=== PATIENT | female | born 1960 | race Caucasian/White ===

== ENCOUNTER 2018-02-26 18:59 | Emergency (ER) | payer BC, SELFPAY ==
[2018-02-26] MEDS ORDERED: ONDANSETRON 4 MG/2 ML VIAL ONE (22:07)
[2018-02-26] MEDS ORDERED: NA CHLORIDE 0.9% 1,000 ML ONE (22:07)
[2018-02-26] MEDS ORDERED: DIPHENHYDRAMINE 50 MG/ML VIAL ONE (22:07)
[2018-02-26] MEDS ORDERED: HALOPERIDOL LACT 5 MG/ML INJ ONE (22:07)
[2018-02-26 23:07] LABS: Absolute Lymphocytes (CBC) 1.7 K/uL (0.7-4.9); Absolute Monocytes 0.7 K/uL (0.1-1.3); Absolute Neutrophil 15.4 K/uL (1.8-8.0); Basophils % 0.5 % (0-1.3); Eosinophils % 1.5 % (0-4.4); Hematocrit 39.8 % (36.0-45.0); Lymphocytes % 9.3 % (15.3-44.8); MCH 26.1 pg (27.0-35.0); MCV 76.8 fL (80-100); MPV 7.7 fL (7.6-11.3); Monocytes % 3.9 % (3.3-12.3); RBC Red Blood Cell Count 5.18 M/uL (3.86-4.86)
--- NOTE | 2018-02-27 00:24 | ER ---
Nurse's Notes [facility] Name: Albania Alfaro Age: 57 yrs Sex: Female : 1960 Arrival Date: 02/26/2018 Time: 19:03 Bed 24 Private MD: Diagnosis: cerebellar mass with midline shift;Lung mass, undifferentiated. ;vertigo;nausea and vomiting Presentation: 02/26 19:12 Presenting complaint: Patient states: Dizziness with N/V for 24 days. Only able to aj tolerate Thanksgiving dinner. Seen by JERAMIE Mcclure on Saturday and DX with Vertigo, given RX. Transition of care: patient was not received from another setting of care. Onset of symptoms was January 31, 2018. Risk Assessment: Do you want to hurt yourself or someone else? Patient reports no desire to harm self or others. Initial Sepsis Screen: Does the patient meet any 2 criteria? No. Patient's initial sepsis screen is negative. Does the patient have a suspected source of infection? No. Patient's initial sepsis screen is negative. Care prior to arrival: None. 19:12 Method Of Arrival: Wheelchair aj 19:12 Acuity: AILYN 3 aj Triage Assessment: 19:15 General: Appears in no apparent distress. comfortable, Behavior is calm, cooperative, aj appropriate for age. Pain: Denies pain. Neuro: Level of Consciousness is awake, alert, obeys commands, Oriented to person, place, time, situation, Appropriate for age. Neuro: Reports dizziness. Respiratory: Airway is patent Respiratory effort is even, unlabored, Respiratory pattern is regular, symmetrical. GI: Reports nausea, vomiting. Derm: Skin is intact, is healthy with good turgor, Skin is pink, warm \T\ dry. normal. Historical: - Allergies: 19:15 Erythromycin; aj - Home Meds: 19:15 Meclizine Oral [Active]; aj - PMHx: 19:15 vertigo; Diverticulitis; aj - PSHx: 19:15 Cholecystectomy; aj - Immunization history:: Adult Immunizations up to date. - Social history:: Smoking status: Patient/guardian denies using tobacco. - Ebola Screening: : Patient negative for fever greater than or equal to 101.5 degrees Fahrenheit, and additional compatible Ebola Virus Disease symptoms Patient denies exposure to infectious person Patient denies travel to an Ebola-affected area in the 21 days before illness onset No symptoms or risks identified at this time. Screenin:35 Abuse screen: Denies threats or abuse. Denies injuries from another. Nutritional ak1 screening: No deficits noted. Tuberculosis screening: No symptoms or risk factors identified. Fall Risk None identified. Assessment: 21:36 General: Appears in no apparent distress. Behavior is calm, cooperative. Pain: ak1 Complains of pain in headache, abd. 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 Gait is steady, Speech is normal. Cardiovascular: No deficits noted. Respiratory: No deficits noted. 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 : No signs and/or symptoms were reported regarding the genitourinary system. EENT: No signs and/or symptoms were reported regarding the EENT system. Derm: No signs and/or symptoms reported regarding the dermatologic system. Musculoskeletal: No signs and/or symptoms reported regarding the musculoskeletal system. 22:10 Reassessment: Patient appears in no apparent distress at this time. Patient is alert, ak1 oriented x 3, equal unlabored respirations, skin warm/dry/pink. no vomiting noted while pt has been in ER24. 22:48 GI: Abdomen is round non-distended, no vomiting reported as of yet. pt resting with ak1 eyes closed, resp even and unlabored. 23:48 Reassessment: pt and family informed of dx and need for transfer. ak1 Vital Signs: 19:15 BP 115 / 76; Pulse 91; Resp 18; Temp 97.5; Pulse Ox 100% on R/A; Weight 74.84 kg; aj Height 5 ft. 4 in. (162.56 cm); 22:11 BP 127 / 69; Pulse 79; Resp 16; Pulse Ox 99% on R/A; ak1 22:30 BP 133 / 53; Pulse 78; Resp 16; Pulse Ox 98% on R/A; rv 23:30 BP 129 / 76; Pulse 87; Resp 17; Pulse Ox 100% on R/A; rv 19:15 Body Mass Index 28.32 (74.84 kg, 162.56 cm) aj ED Course: 19:03 Patient arrived in ED. rg4 19:14 Triage completed. aj 19:15 Arm band placed on left wrist. Patient placed in waiting room, Patient notified of wait aj time. 20:33 Eun Grande, RN is Primary Nurse. ak1 20:41 Jordan Lagunas MD is Attending Physician. ps1 20:43 Patient has correct armband on for positive identification. Bed in low position. Call ak1 light in reach. Side rails up X 1. Pulse ox on. NIBP on. 21:15 Radiology exam delayed due to IV insertion attempt and/or patient not having vr appropriate IV at this time. 21:16 Radiology exam delayed due to lab results not completed at this time. (BUN/Creatinine). vr 21:36 Missed attempt(s): 20 gauge by Alexx GARCIA via US X2 to right AC and right upper arm. ak1 21:43 Inserted 18 gauge 10 cm midline to right upper brachial vein on first attempt. Line fc with good blood return and flushes well. 22:[address] nj 22:43 CT completed. Patient tolerated procedure well. Patient moved back from CT. nj 22:43 Head angio In Process Unspecified. EDMS 22:43 Neck Angio In Process Unspecified. EDMS 02/27 00:20 CMP Sent. ds4 00:51 No provider procedures requiring assistance completed. Patient transferred, IV remains ak1 in place. Administered Medications: 02/26 22:08 Drug: HALdol 5 mg Route: IVP; Site: right upper arm; ak1 22:57 Follow up: Response: No adverse reaction ak1 22:09 Drug: Benadryl 50 mg Route: IVP; Site: right upper arm; ak1 22:57 Follow up: Response: No adverse reaction ak1 22:09 Drug: Zofran 4 mg Route: IVP; Site: right upper arm; ak1 22:57 Follow up: Response: No adverse reaction ak1 22:10 Drug: NS 0.9% 1000 ml Route: IV; Rate: 1 bolus; Site: right upper arm; ak1 23:54 Follow up: IV Status: Completed infusion ak1 Outcome: 02/27 00:23 ER care complete, transfer ordered by . ps1 00:51 Transferred by ground EMS to [facility], Transfer form completed. ak1 X-rays sent w/ patient. Note: Report given to Ken [address] [place] [address] at [phone] 00:51 Condition: stable 00:51 Instructed on the need for transfer, Demonstrated understanding of instructions. 01:58 Patient left the ED. ak1 Signatures: Dispatcher [employer] Leta Clifford, RN RN Priscilla Atwood, RN RN Cathryn Pineda Donovan ds4 Eun Grande RN RN Anisa Sahni Nathan nj Singer, Phillip, MD MD ps1 Vicente, Ronaldo RN RN rv
--- NOTE | 2018-02-27 00:24 | EDPHYS ---
Physician Documentation [facility] Name: Albania Alfaro Age: 57 yrs Sex: Female : 1960 Arrival Date: 02/26/2018 Time: 19:03 Bed 24 Private MD: ED Physician Jordan Lagunas Historical: - Allergies: 02/26 19:15 Erythromycin; aj - Home Meds: 19:15 Meclizine Oral [Active]; aj - PMHx: 19:15 vertigo; Diverticulitis; aj - PSHx: 19:15 Cholecystectomy; aj - Immunization history:: Adult Immunizations up to date. - Social history:: Smoking status: Patient/guardian denies using tobacco. - Ebola Screening: : Patient negative for fever greater than or equal to 101.5 degrees Fahrenheit, and additional compatible Ebola Virus Disease symptoms Patient denies exposure to infectious person Patient denies travel to an Ebola-affected area in the 21 days before illness onset No symptoms or risks identified at this time. Vital Signs: 19:15 BP 115 / 76; Pulse 91; Resp 18; Temp 97.5; Pulse Ox 100% on R/A; Weight 74.84 kg; aj Height 5 ft. 4 in. (162.56 cm); 22:11 BP 127 / 69; Pulse 79; Resp 16; Pulse Ox 99% on R/A; ak1 22:30 BP 133 / 53; Pulse 78; Resp 16; Pulse Ox 98% on R/A; rv 23:30 BP 129 / 76; Pulse 87; Resp 17; Pulse Ox 100% on R/A; rv 19:15 Body Mass Index 28.32 (74.84 kg, 162.56 cm) aj MDM: 20:50 Patient medically screened. ps1 02/26 22:52 Order name: CBC with Diff; Complete Time: 23:13 ps1 02/26 22:52 Order name: CMP; Complete Time: 00:49 ps1 02/26 21:13 Order name: Head angio EDMS 02/26 21:14 Order name: Neck Angio EDMS 02/27 00:21 Order name: Urine Dipstick--Ancillary (enter results); Complete Time: 00:49 ds4 02/26 22:52 Order name: Urine Dipstick-Ancillary (obtain specimen); Complete Time: 00:15 ps1 Administered Medications: 22:08 Drug: HALdol 5 mg Route: IVP; Site: right upper arm; ak1 22:57 Follow up: Response: No adverse reaction ak1 22:09 Drug: Benadryl 50 mg Route: IVP; Site: right upper arm; ak1 22:57 Follow up: Response: No adverse reaction ak1 22:09 Drug: Zofran 4 mg Route: IVP; Site: right upper arm; ak1 22:57 Follow up: Response: No adverse reaction ak1 22:10 Drug: NS 0.9% 1000 ml Route: IV; Rate: 1 bolus; Site: right upper arm; ak1 23:54 Follow up: IV Status: Completed infusion ak1 Disposition: 02/27/18 00:[address] [facility]. Diagnosis are cerebellar mass with midline shift, Lung mass, undifferentiated. , vertigo, nausea and vomiting. - Reason for transfer: Higher level of care. - Accepting physician is Devonte (Neurosurgery). - Condition is Fair. - Problem is new. - Symptoms are unchanged. Addendum: 03/12/2018 21:56 Addendum: 57 y/o F presenting with nausea, vomiting, vertigo for over a month. She was p s1 seen and evaluated at [facility] for the same and was CT scanned including head, neck, CAP and found to have a right apical lung mass that she was supposed to see Dr. Shannon for for pulmonary follow up and further diagnostic workup. She has not had that appointment yet and she was prescribed meclizine which she states was ineffective in treating her symptoms. ROS: Headache, vertigo, no visual changes, +vomting, nasusea, no urinary complaints. No edema. PHYS: NCAT, PERRL, RRR no MRG, CTAB, Bowel soft NT, Ataxia, and abnormal cerebellar exam. POC: CTA head and neck performed and cerebellar mass present with midline shift. Called [facility] and unavailable 2.2 beds. Transferred to [facility] for NSGY evaluation. . Signatures: Dispatcher [employer] Leta Clifford RN RN aj Krenek, Amber, RN RN ak1 Jordan Lagunas MD MD ps1 Corrections: (The following items were deleted from the chart) 02/27 01:58 00:23 02/27/2018 00:[address] [facility]. Diagnosis is ak1 cerebellar mass with midline shift; Lung mass, undifferentiated. ; vertigo; nausea and vomiting. Reason for transfer: Higher level of care. Accepting physician is Devonte (Neurosurgery). Condition is Fair. Problem is new. Symptoms are unchanged. ps1
[2018-02-27 00:34] LABS: Albumin 2.7 g/dL (3.4-5.0); Bilirubin Total 0.4 mg/dL (0.2-1.0); Potassium 4.1 mmol/L (3.5-5.1); Protein, Total 7.7 g/dL (6.4-8.2)
[2018-02-27 00:40] LABS: Urine Blood 1+ (NEG); Urine Glucose NEGATIVE (NEG); Urine Protein NEGATIVE (NEG); Urine Specific Gravity 1.015 (1.005-1.030)
[2018-02-27 02:59] VITALS: TEMP 97.5
[2018-02-27 03:03] VITALS: BP 129/76; O2SAT 100
--- NOTE | 2018-02-27 09:40 | RAD REPORT ---
EXAM DESCRIPTION: CT - Neck Angio - 02/27/2018 4:34 am CLINICAL HISTORY: Weakness, dizziness, syncope A preliminary report was provided at the time of the study and reviewed prior to final report. TECHNIQUE: During dynamic enhancement using nonionic IV contrast, axial 2 mm thick images of the nec k were obtained. Sagittal and axial reconstruction images were generated and reviewed. Maximum intens ity projection protocol utilized. All CT scans are performed using dose optimization technique as appropriate and may include automated exposure control or mA/KV adjustment according to patient size. COMPARISON: None FINDINGS: Aortic arch is bovine configuration. No great vessel origin stenosis. Right vertebral art crow is dominant. No vertebral artery origins stenosis. Calcifications are present in each carotid bul b without stenosis. No significant atherosclerotic change and no dissection. No aneurysm or vascular malformation. A large 8 x 6 centimeter malignant mass is present in the apex of the right-side chest. This is only partially imaged on this study. There is surrounding atelectatic lung. No chest wall invasion identif iable. IMPRESSION: Large right apex malignant mass with surrounding atelectatic lung or postobstructive ai rspace opacification. The mass is only partially imaged. Minimal carotid bulb atherosclerotic calcifications. No stenosis, dissection or significant vascular finding.
--- NOTE | 2018-02-27 09:45 | RAD REPORT ---
EXAM DESCRIPTION: CT - Head angio - 02/27/2018 4:34 am CLINICAL HISTORY: Weakness, dizziness, vertigo. A preliminary report was provided at the time of the study and reviewed prior to final report. TECHNIQUE: During dynamic enhancement using nonionic IV contrast, axial 1 millimeter thick images of the head were obtained. Sagittal and axial reconstruction images were generated and reviewed. Maximu m intensity projection protocol utilized. All CT scans are performed using dose optimization technique as appropriate and may include automated exposure control or mA/KV adjustment according to patient size. COMPARISON: No remote CT head imaging. FINDINGS: Noncontrast imaging of the brain shows a 2.5 centimeter heterogeneous mass in the midline posterior fossa localizing to the vermis. There is significant surrounding vasogenic edema. Fourth v entricle is partially effaced. No gross ventricular dilatation seen though lateral ventricles are rel atively prominent. 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 No intracranial hemorrhage is present. No cerebral edema. CT angio neck imaging showed right apex mass. This cerebellum finding is probably a metastatic lesion rather than primary brain malignancy. Right vertebral artery is dominant. No acute vertebral or basilar artery finding. From skullbase dete rmination the bilateral internal carotid arteries show no suspicious finding. No dissection or signif icant atherosclerotic change. The anterior, middle and posterior cerebral artery distributions withou t significant finding. Major venous sinuses are patent. IMPRESSION: Approximately 2.5 centimeter mass midline posterior fossa in the region of the vermis. There is significant surrounding vasogenic edema. Early obstructive hydrocephalus of the third and lateral ventricles suspected. No significant vascular finding.
== END 2018-02-27 01:58 | disposition short-term general hospital (02) ==
LOC: ER 18:59
DX: G93.89 Other specified disorders of brain (principal); R91.8 Other nonspecific abnormal finding of lung field; R42 Dizziness and giddiness; Z88.3 Allergy status to other anti-infective agents
CPT/HCPCS: 36415; 70496; 70498; 80053; 81003; 85025; 96361; 96374; 96375; 99285; J1630; J2405; J7030; Q9967

== ENCOUNTER 2018-07-22 18:48 | Emergency (ER) | payer OTHER ==
--- OUTSIDE RECORDS SUMMARY | 2018-07-22 18:51 | XMS REPORT | Clinical Summary ---
:1960 Author Organization [facility] Address [address] [place] [id number] Care Team Providers Name Role Phone Unavailable Primary Care Provider Unavailable Allergies Active Allergy Reactions Severity Noted Date Comments Erythromycin 02/27/2018 Delirium and fever. Medications Medication Sig Dispensed Refills Start Date End Date Status dexamethasone Take 1 tablet (4 10 tablet 0 03/10/2018 03/15/2018 (DECADRON) 4 MG mg total) by tablet mouth 2 (two) times daily with breakfast and dinner for 5 days. dexamethasone Take 1 tablet (4 3 tablet 0 03/16/2018 03/19/2018 (DECADRON) 4 MG mg total) by tablet mouth daily with breakfast for 3 days. dexamethasone Take 1 tablet (2 3 tablet 0 03/19/2018 03/22/2018 (DECADRON) 2 MG mg total) by tablet mouth daily with breakfast for 3 days. 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 of right lung 02/27/2018 Hydrocephalus 02/27/2018 Bandemia 02/27/2018 Encounters Date Type Specialty Care Team Description 03/06/2018 Anesthesia Event Latoya Junior MD 03/06/2018 Surgery Robert Hightower MD CRANIOTOMY/ CRANIECTOMY,EXCISIO N TUMOR 03/04/2018 Surgery Robert Tirado, BRONCHOSCOPY,ENDOBR MD ONCHIAL ULTRASOUND (EBUS) TRANSTRACH/ TRANSBRONCH SAMPLING 03/04/2018 Anesthesia Event Lalit Benites MD 03/02/2018 Travel 02/27/2018 - Hospital Encounter General Internal Giorgio Nguyen Cerebellar mass; 03/10/2018 Medicine MD Jun Hydrocephalus; Nan, [place] Cerebral edema (HCC); Poornima, MD Mass of right lung; Xiang, Ex-smoker; Linda Varner MD 02/27/2018 Travel after 07/21/2017 Family History Medical History Relation Name Comments Coronary artery disease Father Diabetes Father Hypertension Father Breast cancer Mother Relation Name Status Comments Father Mother Social History Tobacco Use Types Packs/Day Years Used Date Former Smoker Quit: 2003 Smokeless Tobacco: Never Used Sex Assigned at Date Recorded Not on file Job Start Date Occupation Industry Not on file Not on file Not on file Travel History Travel Start Travel End No recent travel history available. Last Filed Vital Signs Vital Sign Reading Time Taken Blood Pressure 137/77 03/10/2018 11:30 AM [facility]INING ROOM SUPERVISOR Pulse 69 03/10/2018 11:30 AM DINING ROOM SUPERVISOR Temperature 35.7 C (96.3 F) 03/10/2018 11:30 AM D[employer]ING ROOM SUPERVISOR Respiratory Rate 18 03/10/2018 11:30 AM DINING ROOM SUPERVISOR Oxygen Saturation 96% 03/10/2018 11:30 AM DINING ROOM SUPERVISOR Inhaled Oxygen Concentration - - Weight 74.1 kg (163 lb 5.8 oz) 03/08/2018 5:00 AM DINING ROOM SUPERVISOR Height 162.6 cm (5' 4.02") 02/27/2018 3:20 AM DINING ROOM SUPERVISOR Body Mass Index 28.03 03/08/2018 5:00 AM DINING ROOM SUPERVISOR Plan of Treatment Not on file Implants Implanted Type Area Wheat Inspector Device Shelf Model / Identifier Expiration Serial / Lot Date [facility] Full Strlprep 10ml [id number] - Sna Cement/F N/A: ESPINO:BIOSCI 07/25/2019 [id number] / Implanted: Qty: 1 on 03/06/2018 by Robert Hightower MD iller/Ad Head NA / hesive [id number] [employer] Duras[employer] Spine 5ml [id number] - [id number] Cement/F N/A: [employer] LIF[employer]CI 07/30/2019 [id number] / Implanted: Qty: 1 on 03/06/2018 by Robert Hightower MD iller/Ad Head / hesive [id number] Plt Str Lp-Neuro 2h 12mm Ti Ns [id number] - Sna Fracture N/A: SYNTHES:SYNTHES 421.502 / Implanted: Qty: 2 on 03/06/2018 by Robert Hightower MD /Fixatio Head [facility] NA / n NA Plt Str Lp-Neuro 4h 12mm Ti Ns 421.504 - Sna Fracture N/A: SYNTHES:SYNTHES 421.504 / Implanted: Qty: 1 on 03/06/2018 by Robert Hightower MD /Fixatio Head [place] NA / n NA Scr Sd Mtrxneu 4mm Ti Ns .104.01 - Sna Fracture N/A: SYNTHES:SYNTHES 104.01 / Implanted: Qty: 8 on 03/06/2018 by Robert Hightower MD /Fixatio Head [facility] NA / n NA Graft Suturable Bp 4x5cm [id number] - [id number] Graft/Pa N/A: [employer] LIFESCI 03/31/2022 [id number] / Implanted: Qty: 1 on 03/06/2018 by Robert Hightower MD [facility] Head [id number] / [id number] Procedures Procedure Name Priority Date/Time Associated Comments Diagnosis INTRAOPERATIVE PATH 03/21/2018 3:20 REPORT - SCAN PM DINING ROOM SUPERVISOR RHYTHM STRIP - SCAN 03/17/2018 12:30 PM DINING ROOM SUPERVISOR POCT-GLUCOSE METER Routine 03/10/2018 11:26 Results for this AM DINING ROOM SUPERVISOR procedure are in the results section. POCT-GLUCOSE METER Routine 03/10/2018 7:12 Results for this AM DINING ROOM SUPERVISOR procedure are in the results section. CBC W/PLT COUNT & AUTO Routine 03/10/2018 4:52 Results for this DIFFERENTIAL AM DINING ROOM SUPERVISOR procedure are in the results section. CBC W/PLT COUNT & AUTO Routine 03/10/2018 4:52 Results for this DIFFERENTIAL AM D[employer]ING ROOM SUPERVISOR procedure are in the results section. BASIC METABOLIC PANEL Routine 03/10/2018 4:52 Results for this (7) AM DINING ROOM SUPERVISOR procedure are in the results section. POCT-GLUCOSE METER Routine 03/09/2018 9:19 Results for this PM D[employer]ING ROOM SUPERVISOR procedure are in the results section. POCT-GLUCOSE METER Routine 03/09/2018 6:16 Results for this PM [facility]ING ROOM SUPERVISOR procedure are in the results section. POCT-GLUCOSE METER Routine 03/09/2018 11:50 Results for this AM DINING ROOM SUPERVISOR procedure are in the results section. POCT-GLUCOSE METER Routine 03/09/2018 8:18 Results for this AM D[employer]ING ROOM SUPERVISOR procedure are in the results section. CBC W/PLT COUNT & AUTO Routine 03/09/2018 5:44 Results for this DIFFERENTIAL AM D[employer]ING ROOM SUPERVISOR procedure are in the results section. CBC W/PLT COUNT & AUTO Routine 03/09/2018 5:44 Results for this DIFFERENTIAL AM DINING ROOM SUPERVISOR procedure are in the results section. BASIC METABOLIC PANEL Routine 03/09/2018 5:44 Results for this (7) AM D[employer]ING ROOM SUPERVISOR procedure are in the results section. POCT-GLUCOSE METER Routine 03/08/2018 9:14 Results for this PM [employer]ING ROOM SUPERVISOR procedure are in the results section. POCT-GLUCOSE METER Routine 03/08/2018 6:00 Results for this PM [facility]ING ROOM SUPERVISOR procedure are in the results section. POCT-GLUCOSE METER Routine 03/08/2018 1:31 Results for this PM [facility]ING ROOM SUPERVISOR procedure are in the results section. MR BRAIN WITHOUT & STAT 03/08/2018 11:47 Results for this WITH IV CONTRAST AM DINING ROOM SUPERVISOR procedure are in the results section. (CELLAVISION MANUAL Routine 03/08/2018 3:33 Results for this DIFF) AM DINING ROOM SUPERVISOR procedure are in the results section. CBC W/PLT COUNT & AUTO Routine 03/08/2018 3:33 Results for this DIFFERENTIAL AM DINING ROOM SUPERVISOR procedure are in the results section. CBC W/PLT COUNT & AUTO Routine 03/08/2018 3:33 Results for this DIFFERENTIAL AM D[employer]ING ROOM SUPERVISOR procedure are in the results section. BASIC METABOLIC PANEL Routine 03/08/2018 3:33 Results for this (7) AM DINING ROOM SUPERVISOR procedure are in the results section. POCT-GLUCOSE METER Routine 03/07/2018 11:20 Results for this PM DINING ROOM SUPERVISOR procedure are in the results section. POCT-GLUCOSE METER Routine 03/07/2018 10:00 Results for this PM [facility]ING ROOM SUPERVISOR procedure are in the results section. POCT-GLUCOSE METER Routine 03/07/2018 6:24 Results for this PM [facility]ING ROOM SUPERVISOR procedure are in the results section. POCT-GLUCOSE METER Routine 03/07/2018 12:17 Results for this PM [facility]ING ROOM SUPERVISOR procedure are in the results section. POCT-GLUCOSE METER Routine 03/07/2018 8:34 Results for this AM D[employer]ING ROOM SUPERVISOR procedure are in the results section. (CELLAVISION MANUAL Routine 03/07/2018 3:59 Results for this DIFF) AM DINING ROOM SUPERVISOR procedure are in the results section. CBC W/PLT COUNT & AUTO Routine 03/07/2018 3:59 Results for this DIFFERENTIAL AM D[employer]ING ROOM SUPERVISOR procedure are in the results section. PHOSPHORUS Routine 03/07/2018 3:59 Results for this AM DINING ROOM SUPERVISOR procedure are in the results section. MAGNESIUM Routine 03/07/2018 3:59 Results for this AM D[employer]ING ROOM SUPERVISOR procedure are in the results section. CBC W/PLT COUNT & AUTO Routine 03/07/2018 3:59 Results for this DIFFERENTIAL AM D[employer]ING ROOM SUPERVISOR procedure are in the results section. BASIC METABOLIC PANEL Routine 03/07/2018 3:59 Results for this (7) AM D[employer]ING ROOM SUPERVISOR procedure are in the results section. POCT-GLUCOSE METER Routine 03/06/2018 10:25 Results for this PM [employer]ING ROOM SUPERVISOR procedure are in the results section. TISSUE EXAM AP Routine 03/06/2018 6:28 Results for this PM [employer]ING ROOM SUPERVISOR procedure are in the results section. POCT-GLUCOSE METER Routine 03/06/2018 12:27 Results for this PM [facility]ING ROOM SUPERVISOR procedure are in the results section. 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 POCT-GLUCOSE METER Routine 03/06/2018 5:15 AM Results for this D[employer]ING ROOM SUPERVISOR procedure are in the results section. CBC W/PLT COUNT & AUTO Routine 03/06/2018 4:37 AM Results for this DIFFERENTIAL D[employer]ING ROOM SUPERVISOR procedure are in the results section. CBC W/PLT COUNT & AUTO Routine 03/06/2018 4:37 AM Results for this DIFFERENTIAL D[employer]ING ROOM SUPERVISOR procedure are in the results section. BASIC METABOLIC PANEL (7) Routine 03/06/2018 4:37 AM Results for this [employer]ING ROOM SUPERVISOR procedure are in the results section. PT/APTT Routine 03/06/2018 4:37 AM Results for this D[employer]ING ROOM SUPERVISOR procedure are in the results section. POCT-GLUCOSE METER Routine 03/05/2018 10:05 PM Results for this D[employer]ING ROOM SUPERVISOR procedure are in the results section. TRANSFUSION SERVICE REPORT 03/05/2018 6:01 PM - SCAN D[employer]ING ROOM SUPERVISOR POCT-GLUCOSE METER Routine 03/05/2018 4:42 PM Results for this D[employer]ING ROOM SUPERVISOR procedure are in the results section. POCT-GLUCOSE METER Routine 03/05/2018 12:01 PM Results for this D[employer]ING ROOM SUPERVISOR procedure are in the results section. POCT-GLUCOSE METER Routine 03/05/2018 7:18 AM Results for this D[employer]ING ROOM SUPERVISOR procedure are in the results section. CBC W/PLT COUNT & AUTO Routine 03/05/2018 4:45 AM Results for this DIFFERENTIAL D[employer]ING ROOM SUPERVISOR procedure are in the results section. CBC W/PLT COUNT & AUTO Routine 03/05/2018 4:45 AM Results for this DIFFERENTIAL D[employer]ING ROOM SUPERVISOR procedure are in the results section. BASIC METABOLIC PANEL (7) Routine 03/05/2018 4:45 AM Results for this [employer]ING ROOM SUPERVISOR procedure are in the results section. POCT-GLUCOSE METER Routine 03/04/2018 8:24 PM Results for this D[employer]ING ROOM SUPERVISOR procedure are in the results section. POCT-GLUCOSE METER Routine 03/04/2018 5:38 PM Results for this D[employer]ING ROOM SUPERVISOR procedure are in the results section. POCT-GLUCOSE METER Routine 03/04/2018 12:03 PM Results for this D[employer]ING ROOM SUPERVISOR procedure are in the results section. REPORT OF PROCEDURE - 03/04/2018 11:06 AM ENDOSCOPY URL DINING ROOM SUPERVISOR EBUS FNA REQUEST Routine 03/04/2018 10:23 AM Results for this [employer]ING ROOM SUPERVISOR procedure are in the results section. FINE NEEDLE ASPIRATE BY AP Routine 03/04/2018 10:23 AM Results for this EBUS D[employer]ING ROOM SUPERVISOR procedure are in the results section. EBUS FNA REQUEST Routine 03/04/2018 10:08 AM Results for this D[employer]ING ROOM SUPERVISOR procedure are in the results section. FINE NEEDLE ASPIRATE BY AP Routine 03/04/2018 10:08 AM Results for this EBUS D[employer]ING ROOM SUPERVISOR procedure are in the results section. EBUS FNA REQUEST Routine 03/04/2018 10:02 AM Results for this D[employer]ING ROOM SUPERVISOR procedure are in the results section. FINE NEEDLE ASPIRATE BY AP Routine 03/04/2018 10:02 AM Results for this EBUS D[employer]ING ROOM SUPERVISOR procedure are in the results section. EBUS FNA REQUEST Routine 03/04/2018 10:01 AM Results for this D[employer]ING ROOM SUPERVISOR procedure are in the results section. EBUS FNA REQUEST Routine 03/04/2018 10:01 AM Results for this D[employer]ING ROOM SUPERVISOR procedure are in the results section. FINE NEEDLE ASPIRATE BY AP Routine 03/04/2018 10:01 AM Results for this EBUS D[employer]ING ROOM SUPERVISOR procedure are in the results section. FINE NEEDLE ASPIRATE BY AP Routine 03/04/2018 10:01 AM Results for this EBUS D[employer]ING ROOM SUPERVISOR procedure are in the results section. TISSUE EXAM AP Routine 03/04/2018 9:17 AM Results for this D[employer]ING ROOM SUPERVISOR procedure are in the results section. BRONCHOSCOPY,ASPIRATION 03/04/2018 9:02 AM Lung mass TRACHEOBRONCHIAL TREE DINING ROOM SUPERVISOR BRONCHOSCOPY,CRYOTHERAPY 03/04/2018 9:02 AM Lung mass TREATMENT FOR STENOSIS D[employer]ING ROOM SUPERVISOR BRONCHOSCOPY,ENDOBRONCHIAL 03/04/2018 9:02 AM Lung mass ULTRASOUND (EBUS) DINING ROOM SUPERVISOR TRANSTRACH/ TRANSBRONCH SAMPLING POCT-GLUCOSE METER Routine 03/04/2018 8:05 AM Results for this [employer] ROOM SUPERVISOR procedure are in the results section. CBC W/PLT COUNT & AUTO Routine 03/04/2018 5:45 AM Results for this DIFFERENTIAL D[employer]ING ROOM SUPERVISOR procedure are in the results section. TYPE AND SCREEN, AUTOMATED Routine 03/04/2018 5:45 AM Results for this [employer] ROOM SUPERVISOR procedure are in the results section. APTT STAT 03/04/2018 5:45 AM Results for this [employer]ING ROOM SUPERVISOR procedure are in the results section. PROTHROMBIN TIME/INR STAT 03/04/2018 5:45 AM Results for this D[employer]ING ROOM SUPERVISOR procedure are in the results section. CBC W/PLT COUNT & AUTO Routine 03/04/2018 5:45 AM Results for this DIFFERENTIAL D[employer]ING ROOM SUPERVISOR procedure are in the results section. BASIC METABOLIC PANEL (7) Routine 03/04/2018 5:45 AM Results for this D[employer]ING ROOM SUPERVISOR procedure are in the results section. POCT-GLUCOSE METER Routine 03/03/2018 9:40 PM Results for this D[employer]ING ROOM SUPERVISOR procedure are in the results section. NM BONE SCAN WHOLE BODY Routine 03/03/2018 2:27 PM Results for this D[employer]ING ROOM SUPERVISOR procedure are in the results section. POCT-GLUCOSE METER Routine 03/03/2018 11:29 AM Results for this D[employer]ING ROOM SUPERVISOR procedure are in the results section. POCT-GLUCOSE METER Routine 03/03/2018 8:25 AM Results for this D[employer]ING ROOM SUPERVISOR procedure are in the results section. CBC W/PLT COUNT & AUTO Routine 03/03/2018 4:53 AM Results for this DIFFERENTIAL D[employer]ING ROOM SUPERVISOR procedure are in the results section. CBC W/PLT COUNT & AUTO Routine 03/03/2018 4:53 AM Results for this DIFFERENTIAL D[employer]ING ROOM SUPERVISOR procedure are in the results section. POCT-GLUCOSE METER Routine 03/02/2018 9:25 PM Results for this D[employer]ING ROOM SUPERVISOR procedure are in the results section. POCT-GLUCOSE METER Routine 03/02/2018 1:06 PM Results for this D[employer]ING ROOM SUPERVISOR procedure are in the results section. POCT-GLUCOSE METER Routine 03/02/2018 8:06 AM Results for this D[employer]ING ROOM SUPERVISOR procedure are in the results section. URINALYSIS W/ REFLEX URINE Routine 03/02/2018 6:00 AM Results for this CULTURE D[employer]ING ROOM SUPERVISOR procedure are in the results section. CBC W/PLT COUNT & AUTO Routine 03/02/2018 4:54 AM Results for this DIFFERENTIAL D[employer]ING ROOM SUPERVISOR procedure are in the results section. CBC W/PLT COUNT & AUTO Routine 03/02/2018 4:54 AM Results for this DIFFERENTIAL D[employer]ING ROOM SUPERVISOR procedure are in the results section. BASIC METABOLIC PANEL (7) Routine 03/02/2018 4:54 AM Results for this D[employer]ING ROOM SUPERVISOR procedure are in the results section. POCT-GLUCOSE METER Routine 03/01/2018 9:02 PM Results for this D[employer]ING ROOM SUPERVISOR procedure are in the results section. POCT-GLUCOSE METER Routine 03/01/2018 5:46 PM Results for this D[employer]ING ROOM SUPERVISOR procedure are in the results section. POCT-GLUCOSE METER Routine 03/01/2018 12:17 PM Results for this D[employer]ING ROOM SUPERVISOR procedure are in the results section. CBC W/PLT COUNT & AUTO Routine 03/01/2018 6:14 AM Results for this DIFFERENTIAL D[employer]ING ROOM SUPERVISOR procedure are in the results section. CBC W/PLT COUNT & AUTO Routine 03/01/2018 6:14 AM Results for this DIFFERENTIAL D[employer]ING ROOM SUPERVISOR procedure are in the results section. BASIC METABOLIC PANEL (7) Routine 03/01/2018 6:14 AM Results for this D[employer]ING ROOM SUPERVISOR procedure are in the results section. POCT-GLUCOSE METER Routine 03/01/2018 6:07 AM Results for this D[employer]ING ROOM SUPERVISOR procedure are in the results section. POCT-GLUCOSE METER Routine 02/28/2018 6:18 PM Results for this D[employer]ING ROOM SUPERVISOR procedure are in the results section. CT ABDOMEN/PELVIS WITH IV Routine 02/28/2018 11:32 AM Results for this CONTRAST D[employer]ING ROOM SUPERVISOR procedure are in the results section. CT CHEST WITH IV CONTRAST Routine 02/28/2018 11:32 AM Results for this D[employer]ING ROOM SUPERVISOR procedure are in the results section. POCT-GLUCOSE METER Routine 02/28/2018 8:10 AM Results for this D[employer]ING ROOM SUPERVISOR procedure are in the results section. POCT-GLUCOSE METER Routine 02/28/2018 5:54 AM Results for this D[employer]ING ROOM SUPERVISOR procedure are in the results section. MR BRAIN WITHOUT & WITH IV LORETTA 02/28/2018 5:03 AM Results for this CONTRAST D[employer]ING ROOM SUPERVISOR procedure are in the results section. CBC W/PLT COUNT & AUTO Routine 02/28/2018 3:23 AM Results for this DIFFERENTIAL D[employer]ING ROOM SUPERVISOR procedure are in the results section. CBC W/PLT COUNT & AUTO Routine 02/28/2018 3:23 AM Results for this DIFFERENTIAL D[employer]ING ROOM SUPERVISOR procedure are in the results section. BASIC METABOLIC PANEL (7) Routine 02/28/2018 3:23 AM Results for this D[employer]ING ROOM SUPERVISOR procedure are in the results section. POCT-GLUCOSE METER Routine 02/28/2018 12:07 AM Results for this D[employer]ING ROOM SUPERVISOR procedure are in the results section. BLOOD CULTURE Routine 02/27/2018 6:57 PM Results for this D[employer]ING ROOM SUPERVISOR procedure are in the results section. POCT-GLUCOSE METER Routine 02/27/2018 6:30 PM Results for this D[employer]ING ROOM SUPERVISOR procedure are in the results section. POCT-GLUCOSE METER Routine 02/27/2018 11:50 AM Results for this D[employer]ING ROOM SUPERVISOR procedure are in the results section. ECG 12-LEAD Routine 02/27/2018 8:17 AM Results for this D[employer]ING ROOM SUPERVISOR procedure are in the results section. POCT-GLUCOSE METER Routine 02/27/2018 5:29 AM Results for this D[employer]ING ROOM SUPERVISOR procedure are in the results section. C-REACTIVE PROTEIN Routine 02/27/2018 5:27 AM Results for this DINING ROOM SUPERVISOR procedure are in the results section. LACTATE DEHYDROGENASE Routine 02/27/2018 5:27 AM Results for this (LDH) D[employer]ING ROOM SUPERVISOR procedure are in the results section. LACTIC ACID, ARTERIAL Routine 02/27/2018 5:27 AM Results for this D[employer]ING ROOM SUPERVISOR procedure are in the results section. PROCALCITONIN Routine 02/27/2018 5:27 AM Results for this D[employer]ING ROOM SUPERVISOR procedure are in the results section. BLOOD CULTURE Routine 02/27/2018 5:27 AM Results for this DINING ROOM SUPERVISOR procedure are in the results section. PHOSPHORUS Routine 02/27/2018 5:04 AM Results for this DINING ROOM SUPERVISOR procedure are in the results section. MAGNESIUM Routine 02/27/2018 5:04 AM Results for this DINING ROOM SUPERVISOR procedure are in the results section. PT/APTT Routine 02/27/2018 5:04 AM Results for this DINING ROOM SUPERVISOR procedure are in the results section. PROTHROMBIN TIME/INR Routine 02/27/2018 5:04 AM Results for this DINING ROOM SUPERVISOR procedure are in the results section. BASIC METABOLIC PANEL (7) Routine 02/27/2018 5:04 AM Results for this DINING ROOM SUPERVISOR procedure are in the results section. TROPONIN I Routine 02/27/2018 5:04 AM Results for this DINING ROOM SUPERVISOR procedure are in the results section. CBC W/PLT COUNT & AUTO Routine 02/27/2018 5:00 AM Results for this DIFFERENTIAL D[employer]ING ROOM SUPERVISOR procedure are in the results section. CBC W/PLT COUNT & AUTO Routine 02/27/2018 5:00 AM Results for this DIFFERENTIAL DINING ROOM SUPERVISOR procedure are in the results section. after 07/21/2017 Results INTRAOPERATIVE PATH REPORT - SCAN (03/21/2018 3:20 PM DINING ROOM SUPERVISOR) Narrative Performed At RHYTHM STRIP - SCAN (03/17/2018 12:30 PM DINING ROOM SUPERVISOR) Narrative Performed At POC-Glucose meter (03/10/2018 11:26 AM DINING ROOM SUPERVISOR)Only the most recent of43 resultswithin the time period is included. POC-Glucose Meter 114 (H)Comment: TESTED AT 70 - 110 mg/dL [facility] [address] [facility] [id number] Specimen Blood Performing Organization Address City/State/Zipcode Phone Number [address] [address] [phone] CENTER CBC with platelet count + automated diff (03/10/2018 4:52 AM DINING ROOM SUPERVISOR)Only the most recent of12 resultswithin the time period is included. WBC 20.9 (H) 3.5 - 10.5 K/L [facility] RBC 5.18 3.93 - 5.22 M/L [facility] Hemoglobin 12.9 11.2 - 15.7 GM/DL [facility] Hematocrit 41.8 34.1 - 44.9 % [facility] MCV 80.7 79.4 - 94.[address] [facility] MCH 24.9 (L) 25.6 - 32.[address] [facility] MCHC 30.9 (L) 32.2 - 35.5 GM/DL [facility] RDW 15.7 (H) 11.7 - 14.4 % [facility] Platelets 485 (H) 150 - 450 K/CU MM [facility] MPV 9.1 (L) 9.4 - 12.[address] [facility] nRBC 0 0 - 0 /[address] [facility] % Neutros 82 % [facility] % Lymphs 10 % [facility] % Monos 6 % [facility] % Eos 1 % [facility] % Baso 0 % [facility] # Neutros 17.13 (H) 1.56 - 6.13 K/L [facility] # Lymphs 2.17 1.18 - 3.74 K/L [facility] # Monos 1.19 (H) 0.24 - 0.36 K/L [facility] # Eos 0.17 0.04 - 0.36 K/L [facility] # Baso 0.03 0.01 - 0.08 K/L [facility] Immature 1 0 - 1 % [facility] Specimen Blood Performing Organization Address City/State/Zipcode Phone Number [facility] [address] [place] [address] [phone] CENTER Basic metabolic panel (03/10/2018 4:52 AM DINING ROOM SUPERVISOR)Only the most recent of11 resultswithin the time period is included. Sodium 134 (L) 136 - 145 meq/L [facility] Potassium 4.4 3.5 - 5.1 meq/L [facility] Chloride 103 98 - 107 meq/L [facility] CO2 23 22 - 29 meq/L [facility] BUN 19 7 - 21 mg/dL [facility] Creatinine 0.60 0.57 - 1.25 mg/dL [facility] Glucose 103 70 - 105 mg/dL [facility] Calcium 9.7 8.4 - 10.2 mg/dL [facility] EGFR Comment: INSUFFICIENT CLINICAL mL/min/1.[address] [facility] DATA TO CALCULATE ESTIMATED MEDICAL CENTER GFR. Specimen Blood Performing Organization Address City/State/Zipcode Phone Number [facility] [address] [place] [address] CENTER MR brain without & with IV contrast (03/08/2018 11:47 AM DINING ROOM SUPERVISOR)Only the most recent of2 resultswithin the time period is included. Specimen Narrative Performed At [facility] MRI Brain with and without contrast Clinical History: Status post tumor resection Technique: MRI of the brain utilizing axial T1, T2, FLAIR, GRE, DWI, sagittal T1; and postgadolinium axial, sagittal, and coronal T1-weighted images. 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 There is air and fluid in the surgical cavity with adjacent signal dephasing. Allowing for this, there is no definitive evidence for residual masslike enhancement. There is substantially decreased vasogenic edema in the bilateral cerebellum. There is new nonspecific leptomeningeal enhancement in the inferior cerebellar folia. There is also new also enhancing dural thickening along the dorsal clivus and upper cervical canal, likely related to a small reactive subdural collection. There is no abnormal enhancement elsewhere in the brain. A 4 mm nonenhancing focus of FLAIR signal hyperintensity in the anterior right temporal lobe is unchanged. There is no evidence for acute infarct. Mild enlargement of the temporal horns is unchanged. There is no midline shift. IMPRESSION: Since 02/28/2018, status post resection of the midline cerebellar mass without evidence for residual neoplasm. Cerebellar leptomeningeal enhancement and a small subdural collection along the dorsal clivus and upper cervical canal are both likely reactive in nature. Signed: Daysi Woodward MD Report Verified Date/Time:03/08/2018 12:29:16 Reading Location: [address] Neuro Reading Room Procedure Note Interface, External Ris In - 03/08/2018 12:31 PM DINING ROOM SUPERVISOR FINAL REPORT MRI Brain with and without contrast Clinical History: Status post tumor resection Technique: MRI of the brain utilizing axial T1, T2, FLAIR, GRE, DWI, sagittal T1; and postgadolinium axial, sagittal, and coronal T1-weighted images. 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 There is air and fluid in the surgical cavity with adjacent signal dephasing. Allowing for this, there is no definitive evidence for residual masslike enhancement. There is substantially decreased vasogenic edema in the bilateral cerebellum. There is new nonspecific leptomeningeal enhancement in the inferior cerebellar folia. There is also new also enhancing dural thickening along the dorsal clivus and upper cervical canal, likely related to a small reactive subdural collection. There is no abnormal enhancement elsewhere in the brain. A 4 mm nonenhancing focus of FLAIR signal hyperintensity in the anterior right temporal lobe is unchanged. There is no evidence for acute infarct. Mild enlargement of the temporal horns is unchanged. There is no midline shift. IMPRESSION: Since 02/28/2018, status post resection of the midline cerebellar mass without evidence for residual neoplasm. Cerebellar leptomeningeal enhancement and a small subdural collection along the dorsal clivus and upper cervical canal are both likely reactive in nature. Signed: Daysi Woodward MD Report Verified Date/Time: 03/08/2018 12:29:16 Reading Location: [address] Neuro Reading Room Performing Organization Address City/State/Zipcode Phone Number GE RIS Manual Differential (03/08/2018 3:33 AM DINING ROOM SUPERVISOR)Only the most recent of2 resultswithin the time period is included. % Neutros 91 % [facility] % Lymphs 6 % [facility] % Monos 1 % [facility] % Bands 2 0 - 10 % [facility] # Neutros 23.11 (H) 1.56 - 6.13 K/ul [facility] # Lymphs 1.52 1.18 - 3.74 K/ul [facility] # Monos 0.25 0.24 - 0.36 K/uL [facility] # Bands 0.51 0.00 - 0.80 K/uL [facility] Total Counted 100 [facility] WBC Morphology Normal [facility] Platelet Morphology Normal [facility] Polychromasia 3+ many [facility] Anisocytosis 2+ moderate [facility] Microcytes 1+ few [facility] Artifact Present [facility] Platelet Conc Increased [facility] Specimen Blood Narrative Performed At Received comment: [facility] User comments: Slide comments: Performing Organization Address City/[facility] Phone Number [address] [address] CENTER Phosphorus (03/07/2018 3:59 AM DINING ROOM SUPERVISOR)Only the most recent of2 resultswithin the time period is included. Phosphorus 3.4 2.3 - 4.7 mg/dL [facility] Specimen Blood Performing Organization Address City/[facility] Phone Number [address] [address] CENTER Magnesium (03/07/2018 3:59 AM DINING ROOM SUPERVISOR)Only the most recent of2 resultswithin the time period is included. Magnesium 1.9 1.6 - 2.6 mg/dL [facility] Specimen Blood Performing Organization Address City/[facility] Phone Number [address] [address] [phone] CENTER Tissue Exam (03/06/2018 6:28 PM DINING ROOM SUPERVISOR)Only the most recent of2 resultswithin the time period is included. Case Report Surgical Pathology Report Case: [id number] [facility] Authorizing Provider:Robert Hightower MDCollected: 03/06/2018 1828 [facility] Ordering Location[place] [facility] Received: 03/07/2018 0900 SERVICES Pathologist: Blu Bowers MD Specimen:Tumor ADDENDUM The following results were reported by [employer]. Please see attached reports. 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 The tumor is strongly and diffusely positive for TTF-1 and Napsin-A, both lung markers and consistent with derivation from a lung primary. Immunoperoxidase stains for cytokeratin 7 are also strongly positive and there is predominant immunpositivity of tumor for cytokeratin 20. Focal positivity of tumor for p40 and cytokeratin 5/6 are also present, confirming focal squamous differentiation in a minority of tumor cells. Tumor is negative for p63. CPT Code(s) 69216; 19224; [address] [facility] CLINICAL HISTORY Cancer of cerebellum [facility] SPECIMEN SOURCE Tumor of cranium [facility] GROSS DESCRIPTION The specimen is received in a [facility] formalin-filled container [facility] labeled with the patient's information and labeled "cranium tumor" and consists of multiple fragments of santiago hemorrhagic soft tissue measuring 3 x 2.5 x 1 cm in aggregate. The specimen is entirely submitted in A1 and A2. CG/ew MICROSCOPIC DESCRIPTION Performed [facility] SPECIAL STUDIES The interpretation of this case included the use of immunohistochemistry or special stains. [facility] Immunohistochemistry technical testing was performed at [facility], Pathology Laboratory where it was developed and its performance characteristics were determined. It has not be en cleared or approved by the U.S. Food and Drug Administration. The FDA has determined that such clearance or approval is not necessary. The test is used for clinical purposes. It should not be regarde d as investigational or for research. This laboratory is certified under the Clinical Laboratory Improvement Amendments of 1988 (CLIA-88) as qualified to perform high complexity clinical laboratory testing. The immunohistochemistry test was developed and its performance characteristics determined by [facility], Pathology Laboratory. It has not been cleared or approved by the U.S. Food and Drug Administration. The FDA has determined that such clearance or approval is not necessary. The test is used for clinical purposes. It should not be regarded as investigational or for research. This laboratory is certified under the Clinical Laboratory Improvement Amendments of 1988 (CLIA-88) as qualified to perform high complexity clinical laboratory testing. Specimen Tissue - Tumor Narrative Performed At Performing Organization Address City/[facility]/Zipcode Phone Number [address] [address] [place] PT/aPTT (03/06/2018 4:37 AM DINING ROOM SUPERVISOR)Only the most recent of2 resultswithin the time period is included. Protime 13.1 11.7 - 14.[address] [facility] INR 1.0 <=[address].9 [facility] PTT 24.2 22.5 - 36.[address] [facility] Specimen Blood Narrative Performed At RECOMMENDED COUMADIN/WARFARIN INR THERAPY [facility] RANGES STANDARD DOSE: 2.0 - 3.0 Includes: PROPHYLAXIS for venous thrombosis, systemic embolization; TREATMENT for venous thrombosis and/or pulmonary embolus. HIGH RISK: Target INR is 2.5-3.5 for patients with mechanical heart valves. Performing Organization Address City/[facility] Hospitalcode Phone Number [address] [address] [phone] [place] TRANSFUSION SERVICE REPORT - SCAN (03/05/2018 6:01 PM DINING ROOM SUPERVISOR) Narrative Performed At REPORT OF PROCEDURE - ENDOSCOPY URL (03/04/2018 11:06 AM DINING ROOM SUPERVISOR) Narrative Performed At EBUS FNA REQUEST (03/04/2018 10:23 AM DINING ROOM SUPERVISOR)Only the most recent of5 resultswithin the time period is included. Cytology See Separate Report [facility] Specimen EBUS Fine Needle Aspirate - Lymph Node, Interlobar, Right, Station 11R Performing Organization Address City/State/Zipcode Phone Number [facility] [address] [place] [address] CENTER Fine Needle Aspiration by EBUS (03/04/2018 10:23 AM DINING ROOM SUPERVISOR)Only the most recent of5 resultswithin the time period is included. Case Report Medical Cytology Report Case: [id number] [facility] Authorizing Provider:Robert Tirado MDCollected: 03/04/2018 1023 [facility] Ordering Location: [address] Received: 03/04/2018 1244 Service Pathologist: Ben Vila MD Specimen:Lymph Node, Interlobar, Right, Station 11R DIAGNOSIS LYMPH NODE, INTERLOBAR RIGHT, STATION 11R EBUS FNA BY CLINICIAN ( CYTOSPINS OF ASPIRATE): [facility] - NEGATIVE FOR MALIGNANCY [facility] - LYMPHOCYTES PRESENT Signing Pathologist Direct Phone Line: [phone] COMMENT [facility] Please also see surgical pathology report [id number] and cytopathology reports [id number], [id number], [id number] and [id number]. [facility] CPT Code(s) [address] [facility] CLINICAL DATA Lung mass [facility] SPECIMEN SOURCE LYMPH NODE, INTERLOBAR RIGHT, [facility] STATION 11R EBUS FNA [facility] GROSS DESCRIPTION 40 mls in cytorich red; 2 cytospins [facility] Collected: [id number] [facility] Received: [id number] SPECIAL STUDIES The interpretation of this case included the use of immunohistochemistry or special stains. [facility] Immunohistochemistry technical testing was performed at [facility], Pathology Laboratory where it was developed and its performance characteristics were determined. It has not be en cleared or approved by the U.S. Food and Drug Administration. The FDA has determined that such clearance or approval is not necessary. The test is used for clinical purposes. It should not be regarde d as investigational or for research. This laboratory is certified under the Clinical Laboratory Improvement Amendments of 1988 (CLIA-88) as qualified to perform high complexity clinical laboratory testing. Gross assessment was [facility] performed at [place], Department [facility] Pathology, [address] [place] [id number], Technical component was [facility] performed at [place], [facility] Pathology, [address] [place] [address], Professional component [facility] was performed at [place], [facility] Pathology, [address] [place] [address], Specimen EBUS Fine Needle Aspirate - Lymph Node, Interlobar, Right, Station 11R Narrative Performed At Performing Organization Address City/[facility] Phone Number [address] [address] CENTER Type and screen, automated (03/04/2018 5:45 AM DINING ROOM SUPERVISOR) ABO/RH AUTOMATED (BEAKER) A POSITIVE [facility] Ab Scrn NEGATIVE [facility] Specimen Blood Performing Organization Address [facility] Hospitalcode Phone Number [address] [address] aPTT (03/04/2018 5:45 AM DINING ROOM SUPERVISOR) PTT 25.2 22.5 - 36.[address] [facility] Specimen Blood Performing Organization Address [facility]/Zipcode Phone Number [address] [address] CENTER Prothrombin time/INR (03/04/2018 5:45 AM DINING ROOM SUPERVISOR)Only the most recent of2 resultswithin the time period is included. Protime 13.6 11.7 - 14.[address] [facility] INR 1.0 <=5.9 [facility] Specimen Blood Narrative Performed At RECOMMENDED COUMADIN/WARFARIN INR THERAPY [facility] RANGES STANDARD DOSE: 2.0 - 3.0 Includes: PROPHYLAXIS for venous thrombosis, systemic embolization; TREATMENT for venous thrombosis and/or pulmonary embolus. HIGH RISK: Target INR is 2.5-3.5 for patients with mechanical heart valves. Performing Organization Address City/State/Zipcode Phone Number [facility] [address] [place] [address] [phone] CENTER NM bone scan whole body (03/03/2018 2:27 PM DINING ROOM SUPERVISOR) Specimen Narrative Performed At FINAL REPORT [facility] PROCEDURE: BONE SCAN, WHOLE BODY CPT CODE:36185 INDICATION:Right lung cancer with cerebellar metastasis PROTOCOL:21.6 mCi of Tc-99m MDP was injected intravenously. Whole body and selected spot images were obtained approximately 3 hours later. FINDINGS: Tracer activity is mildly increased in the shoulders, sternoclavicular joints, sternal manubrium, hips. There is mild irregularity within the spine. IMPRESSION: 1. No specific evidence of bony neoplastic disease. 2. Mild to moderate degenerative changes in the spine and peripheral joints. Images for comparison/correlation were recent torso CT. Signed: Antoni Zimmerman MD Report Verified Date/Time:03/03/2018 15:34:30 Reading Location: [address] Reading Room Procedure Note Interface, External Ris In - 03/03/2018 3:36 PM DINING ROOM SUPERVISOR FINAL REPORT PROCEDURE: BONE SCAN, WHOLE BODY CPT CODE: [id number] INDICATION: Right lung cancer with cerebellar metastasis PROTOCOL: 21.6 mCi of Tc-99m MDP was injected intravenously. Whole body and selected spot images were obtained approximately 3 hours later. FINDINGS: Tracer activity is mildly increased in the shoulders, sternoclavicular joints, sternal manubrium, hips. There is mild irregularity within the spine. IMPRESSION: 1. No specific evidence of bony neoplastic disease. 2. Mild to moderate degenerative changes in the spine and peripheral joints. Images for comparison/correlation were recent torso CT. Signed: Antoni Zimmerman MD Report Verified Date/Time: 03/03/2018 15:34:30 Reading Location: [address] Reading Room Performing Organization Address City/State/Zipcode Phone Number RIS Urinalysis w/Microscopic + Reflex to Culture (03/02/2018 6:00 AM DINING ROOM SUPERVISOR) Color, UA Light Yellow [facility] Clarity, UA Hazy [facility] Specific [place], UA 1.019 1.001 - 1.035 [facility] pH, UA 7.0 5.0 - 8.0 [facility] Protein, UA Negative Negative [facility] Glucose, UA Negative Negative [facility] Ketones, UA Negative Negative [facility] Bilirubin, UA Negative Negative [facility] Blood, UA Negative Negative [facility] Nitrite, UA Negative Negative [facility] Leukocytes, UA Negative Negative [facility] Urobilinogen, UA 0.2 0.2 - 1.0 mg/dL [facility] RBC, UA 2 /HPF [facility] WBC, UA 0 /HPF [facility] Mucus Rare [facility] Squam Epithel, UA <1 /HPF [facility] Specimen Source [facility] Specimen Urine Performing Organization Address City/State/Zipcode Phone Number [facility] [address] [place] [address] abdomen/pelvis with IV contrast (02/28/2018 11:32 AM DINING ROOM SUPERVISOR) Specimen Narrative Performed At FINAL REPORT GE RIS CT of the Chest, abdomen and pelvis dated 02/28/2018 Clinical information: Neoplasm: abdomen, other primary, staging Comment:Axial images of the chest, abdomen, and pelvis were obtained from thoracic inlet to the pubic symphysis with GI and intravenous contrast. This exam was performed according to our departmental dose-optimization program, which includes automated exposure control, adjustment of the mA and/or kV according to patient size and/or use of interactive reconstruction technique. Heart is normal in size.Great vessels are unremarkable. Prompt lymph nodes are seen in the precarinal, subcarinal mediastinum. The largest lymph node measures approximately 1.1 x 1.5 cm. Trachea and mainstem bronchi are patent. A 4.4 x 6.6 cm mass is seen in the right upper lobe. There is atelectasis involving the peripheral of the right upper lobe. Rest of the lungs are clear. No pleural effusion or pleural based mass is seen. Liver and spleen are normal in size. No focal lesion is seen in the liver or the spleen. Gallbladder is surgically absent. No biliary dilatation is noted. Pancreas and adrenals are unremarkable. Both kidneys are normal in size and functioning with bilateral excretion.No hydronephrosis, hydroureter, or urolithiasis is noted. Diverticular disease is seen in the large bowel without diverticulitis. The small bowel and appendix are normal in caliber. Uterus and ovaries are unremarkable. No mass, adenopathy or ascites is present in the abdomen or pelvis. Impression: 1. Right upper lobe mass suspicious for bronchogenic carcinoma. 2. Nonspecific mediastinal lymph nodes. 3. Diverticulosis without diverticulitis. 4. No mass or adenopathy in the abdomen or pelvis. Signed: Lamonte Lorenzo MD Report Verified Date/Time:02/28/2018 15:20:36 Reading Location: [facility] B1 C013Y CT Body Reading Room Procedure Note Interface, External Ris In - 02/28/2018 3:22 PM DINING ROOM SUPERVISOR FINAL REPORT CT of the Chest, abdomen and pelvis dated 02/28/2018 Clinical information: Neoplasm: abdomen, other primary, staging Comment: Axial images of the chest, abdomen, and pelvis were obtained from thoracic inlet to the pubic symphysis with GI and intravenous contrast. This exam was performed according to our departmental dose-optimization program, which includes automated exposure control, adjustment of the mA and/or kV according to patient size and/or use of interactive reconstruction technique. Heart is normal in size. Great vessels are unremarkable. Prompt lymph nodes are seen in the precarinal, subcarinal mediastinum. The largest lymph node measures approximately 1.1 x 1.5 cm. Trachea and mainstem bronchi are patent. A 4.4 x 6.6 cm mass is seen in the right upper lobe. There is atelectasis involving the peripheral of the right upper lobe. Rest of the lungs are clear. No pleural effusion or pleural based mass is seen. Liver and spleen are normal in size. No focal lesion is seen in the liver or the spleen. Gallbladder is surgically absent. No biliary dilatation is noted. Pancreas and adrenals are unremarkable. Both kidneys are normal in size and functioning with bilateral excretion. No hydronephrosis, hydroureter, or urolithiasis is noted. Diverticular disease is seen in the large bowel without diverticulitis. The small bowel and appendix are normal in caliber. Uterus and ovaries are unremarkable. No mass, adenopathy or ascites is present in the abdomen or pelvis. Impression: 1. Right upper lobe mass suspicious for bronchogenic carcinoma. 2. Nonspecific mediastinal lymph nodes. 3. Diverticulosis without diverticulitis. 4. No mass or adenopathy in the abdomen or pelvis. Signed: Lamonte Lorenzo MD Report Verified Date/Time: 02/28/2018 15:20:36 Reading Location: [facility] B1 C013Y CT Body Reading Room Performing Organization Address City/State/Zipcode Phone Number GE RIS CT chest with IV contrast (02/28/2018 11:32 AM DINING ROOM SUPERVISOR) Specimen Narrative Performed At FINAL REPORT [place] RIS CT of the Chest, abdomen and pelvis dated 02/28/2018 Clinical information: Neoplasm: abdomen, other primary, staging Comment:Axial images of the chest, abdomen, and pelvis were obtained from thoracic inlet to the pubic symphysis with GI and intravenous contrast. This exam was performed according to our departmental dose-optimization program, which includes automated exposure control, adjustment of the mA and/or kV according to patient size and/or use of interactive reconstruction technique. Heart is normal in size.Great vessels are unremarkable. Prompt lymph nodes are seen in the precarinal, subcarinal mediastinum. The largest lymph node measures approximately 1.1 x 1.5 cm. Trachea and mainstem bronchi are patent. A 4.4 x 6.6 cm mass is seen in the right upper lobe. There is atelectasis involving the peripheral of the right upper lobe. Rest of the lungs are clear. No pleural effusion or pleural based mass is seen. Liver and spleen are normal in size. No focal lesion is seen in the liver or the spleen. Gallbladder is surgically absent. No biliary dilatation is noted. Pancreas and adrenals are unremarkable. Both kidneys are normal in size and functioning with bilateral excretion.No hydronephrosis, hydroureter, or urolithiasis is noted. Diverticular disease is seen in the large bowel without diverticulitis. The small bowel and appendix are normal in caliber. Uterus and ovaries are unremarkable. No mass, adenopathy or ascites is present in the abdomen or pelvis. Impression: 1. Right upper lobe mass suspicious for bronchogenic carcinoma. 2. Nonspecific mediastinal lymph nodes. 3. Diverticulosis without diverticulitis. 4. No mass or adenopathy in the abdomen or pelvis. Signed: Lamonte Lorenzo MD Report Verified Date/Time:02/28/2018 15:20:36 Reading Location: [address] Body Reading Room Procedure Note Interface, External Ris In - 02/28/2018 3:22 PM DINING ROOM SUPERVISOR FINAL REPORT CT of the Chest, abdomen and pelvis dated 02/28/2018 Clinical information: Neoplasm: abdomen, other primary, staging Comment: Axial images of the chest, abdomen, and pelvis were obtained from thoracic inlet to the pubic symphysis with GI and intravenous contrast. This exam was performed according to our departmental dose-optimization program, which includes automated exposure control, adjustment of the mA and/or kV according to patient size and/or use of interactive reconstruction technique. Heart is normal in size. Great vessels are unremarkable. Prompt lymph nodes are seen in the precarinal, subcarinal mediastinum. The largest lymph node measures approximately 1.1 x 1.5 cm. Trachea and mainstem bronchi are patent. A 4.4 x 6.6 cm mass is seen in the right upper lobe. There is atelectasis involving the peripheral of the right upper lobe. Rest of the lungs are clear. No pleural effusion or pleural based mass is seen. Liver and spleen are normal in size. No focal lesion is seen in the liver or the spleen. Gallbladder is surgically absent. No biliary dilatation is noted. Pancreas and adrenals are unremarkable. Both kidneys are normal in size and functioning with bilateral excretion. No hydronephrosis, hydroureter, or urolithiasis is noted. Diverticular disease is seen in the large bowel without diverticulitis. The small bowel and appendix are normal in caliber. Uterus and ovaries are unremarkable. No mass, adenopathy or ascites is present in the abdomen or pelvis. Impression: 1. Right upper lobe mass suspicious for bronchogenic carcinoma. 2. Nonspecific mediastinal lymph nodes. 3. Diverticulosis without diverticulitis. 4. No mass or adenopathy in the abdomen or pelvis. Signed: Lamonte Lorenzo MD Report Verified Date/Time: 02/28/2018 15:20:36 Reading Location: [facility] C013 CT Body Reading Room Performing Organization Address City/State/Zipcode Phone Number [place] [facility] Blood culture (02/27/2018 6:57 PM DINING ROOM SUPERVISOR)Only the most recent of2 resultswithin the time period is included. Result No growth in [address] [facility] Specimen Blood Performing Organization Address City/[facility]/Zipcode Phone Number [address] [address] [phone] CENTER ECG 12 lead (02/27/2018 8:17 AM DINING ROOM SUPERVISOR) Specimen Narrative Performed At Ventricular Rate 61 BPM GE MUSE Atrial Rate 61 BPM P-R Interval 154 ms QRS Duration 94 ms Q-T Interval 472 ms QTC Calculation(Bazett) 475 ms P [place] 39 degrees R [place] 4 degrees T [place] 4 degrees Normal sinus rhythm Prolonged QT Abnormal ECG No previous ECGs available Confirmed by MD REBOLLEDO JORGE ([id number]) on 02/27/2018 11:34:39 AM Procedure Note Interface, External Ris In - 02/27/2018 11:34 AM DINING ROOM SUPERVISOR Ventricular Rate 61 BPM Atrial Rate 61 BPM P-R Interval 154 ms QRS Duration 94 ms Q-T Interval 472 ms QTC Calculation(Bazett) 475 ms P [place] 39 degrees R [place] 4 degrees T [place] 4 degrees Normal sinus rhythm Prolonged QT Abnormal ECG No previous ECGs available Confirmed by MD REBOLLEDO JORGE ([id number]) on 02/27/2018 11:34:39 AM Performing Organization Address City/[facility] Phone Number [place] Procalcitonin (02/27/2018 5:27 AM DINING ROOM SUPERVISOR) Procalcitonin <0.05 <0.05 ng/mL [facility] Specimen Blood Narrative Performed At SEPSIS RISK (ng/mL) [facility] Low:0.05-0.50 Intermediate: 0.51-2.00 High: >=2.01 Performing Organization Address [facility] [place] Phone Number [address] [address] [phone] CENTER C-Reactive Protein (02/27/2018 5:27 AM DINING ROOM SUPERVISOR) CRP 8.22 (H) 0.00 - 0.50 mg/dL [facility] Specimen Blood Performing Organization Address [facility] [place] Phone Number [address] [address] [place] Lactic acid, arterial, whole blood (02/27/2018 5:27 AM DINING ROOM SUPERVISOR) Lactate, Art 1.0 0.5 - 2.2 mmol/L [facility] Specimen Blood, Arterial Performing Organization Address [facility] [place] Phone Number [address] [address] [phone] CENTER Lactate dehydrogenase (LDH) (02/27/2018 5:27 AM DINING ROOM SUPERVISOR) LDH 146 125 - 220 U/L [facility] Specimen Blood Performing Organization Address [facility] [place] Phone Number [address] [address] [phone] CENTER Troponin I (02/27/2018 5:04 AM DINING ROOM SUPERVISOR) Troponin I <0.01 0.00 - 0.03 ng/mL [facility] CENTER Specimen Blood Performing Organization Address City/State/Zipcode Phone Number [facility] [address] [place] [address] [phone] CENTER after 07/21/2017 Insurance Payer Benefit Plan / Group Subscriber ID Type Phone Address MEDICAID [place] xxxxxxxxx Medicaid Advance Directives For more information, please contact:[facility] [place] [address] [phone] Code Status Date Activated Date Inactivated Comments Full Code 02/27/2018 3:43 AM This code status was determined by: Patient
--- OUTSIDE RECORDS SUMMARY | 2018-07-22 18:52 | XMS REPORT ---
:1960 [facility] Address [address] [place] [address] [address] [place] [address] Care Team Providers Name Role Phone JACOBY MÁRQUEZ Unavailable Unavailable Problems This patient has no known problems. Allergies, Adverse Reactions, Alerts This patient has no known allergies or adverse reactions. Medications This patient has no known medications. Results Test Description Test Time Test Comments Text Results Atomic Results Result Comments TISSUE EXAM 2018-05-24 13:16:00 Surgical Pathology Report Case: [id number] Authorizing Provider: Robert Hightower MD Collected: 03/06/2018 1828 Ordering Location: [facility] Received: 03/07/2018 0900 SERVICES Pathologist: Blu Bowers MD Specimen: Tumor The following results were reported by [facility]. Please see attached reports.PD-L1 22C3 FDA analysis confirms HIGH EXPRESSIONBRAF gene rearrangement is NOT DETECTEDROS1 gene rearrangement is NOT DETECTEDALK gene rearrangement is NOT DETECTEDEGFR mutations in exons 18, 19, 20 T790M and other mutations, 21Addendum electronically signed by Blu Bowers MD on 05/24/2018 at 1:16 PMBRAIN, CEREBELLUM, CRANIOTOMY:METASTATIC ADENOCARCINOMA WITH FOCAL SQUAMOUS DIFFERENTIATION (SEE COMMENT) Signing Pathologist Direct Phone Line: [phone] signed by Blu Bowers MD on 03/19/2018 at 11:01 AMThe tumor consists of an adenocarcinoma with frequent gland formation, mucin production and necrosis. The [...] tumor cells. Tumor is negative for p63. 18535; 77033; 11986 x 6Cancer of cerebellumTumor of craniumThe specimen is received in a formalin-filled container labeled with the patient's information and labeled "cranium tumor" and consists of multiple fragments of santiago hemorrhagic soft tissue measuring 3 x 2.5 x 1 cm in aggregate. The specimen is entirely submitted in A1 and A2. CG/ew PerformedThe interpretation of this case included the use of immunohistochemistry or special stains. Immunohistochemistry technical testing was performed at [facility], Pathology Laboratory where it was developed and its performance characteristics were determined. It has not been cleared or approved [...] qualified to perform high complexity clinical laboratory testing.The immunohistochemistry test was developed and its performance characteristics determined by [facility], Pathology Laboratory. It has not been [...] to perform high complexity clinical laboratory testing. POCT-GLUCOSE METER 2018-03-11 04:05:00 Test Item Value Reference Range Comments POC-GLUCOSE METER (BEAKER) (test 174 mg/dL 70-110 TESTED AT [address] uueb=0172) [facility] [address] POCT-GLUCOSE [id number] 12:07:00 Test Item Value Reference Range Comments POC-GLUCOSE METER (BEAKER) 114 mg/dL 70-110 TESTED AT [address] (test vwwz=2198) [place] [id number] POCT-GLUCOSE [id number] 07:14:00 Test Item Value Reference Range Comments POC-GLUCOSE METER (BEAKER) 104 mg/dL 70-110 TESTED AT [address] (test izoj=8642) [place] [address] BASIC METABOLIC [id number] 05:46:00 Test Item Value Reference Range Comments SODIUM (BEAKER) (test 134 meq/L 136-145 ceax=133) POTASSIUM (BEAKER) (test 4.4 meq/L 3.5-5.1 kcxq=306) CHLORIDE (BEAKER) (test 103 meq/L 98-107 uogu=991) CO2 (BEAKER) (test 23 meq/L 22-29 deum=262) BLOOD UREA NITROGEN 19 mg/dL 7-21 (BEAKER) (test apmx=494) CREATININE (BEAKER) (test 0.60 mg/dL 0.57-1.25 jzzk=066) GLUCOSE RANDOM (BEAKER) 103 mg/dL 70-105 (test fuqq=846) CALCIUM (BEAKER) (test 9.7 mg/dL 8.4-10.2 kmmv=068) EGFR (BEAKER) (test mL/min/1.73 sq m INSUFFICIENT CLINICAL DATA ydhc=3059) TO CALCULATE ESTIMATED GFR. CBC W/PLT COUNT & AUTO [id number] 05:20:00 Test Item Value Reference Range Comments WHITE BLOOD CELL COUNT (BEAKER) (test dgep=946) 20.9 K/ L 3.5-10.5 RED BLOOD CELL COUNT (BEAKER) (test nvzd=854) 5.18 M/ L 3.93-5.22 HEMOGLOBIN (BEAKER) (test ckjo=727) 12.9 GM/DL 11.2-15.7 HEMATOCRIT (BEAKER) (test vllq=071) 41.8 % 34.1-44.9 MEAN CORPUSCULAR VOLUME (BEAKER) (test ytvn=620) 80.7 fL 79.4-94.8 MEAN CORPUSCULAR HEMOGLOBIN (BEAKER) (test 24.9 pg 25.6-32.2 ddav=488) MEAN CORPUSCULAR HEMOGLOBIN CONC (BEAKER) (test 30.9 GM/DL 32.2-35.5 pisw=488) RED CELL DISTRIBUTION WIDTH (BEAKER) (test 15.7 % 11.7-14.4 xzje=261) PLATELET COUNT (BEAKER) (test bqgi=542) 485 K/CU MM 150-450 MEAN PLATELET VOLUME (BEAKER) (test ysxf=442) 9.1 fL 9.4-12.3 NUCLEATED RED BLOOD CELLS (BEAKER) (test 0 /100 WBC 0-0 fwyd=234) NEUTROPHILS RELATIVE PERCENT (BEAKER) (test 82 % uaxh=843) LYMPHOCYTES RELATIVE PERCENT (BEAKER) (test 10 % oakh=574) MONOCYTES RELATIVE PERCENT (BEAKER) (test 6 % socj=384) EOSINOPHILS RELATIVE PERCENT (BEAKER) (test 1 % ocxu=983) BASOPHILS RELATIVE PERCENT (BEAKER) (test 0 % obuf=187) NEUTROPHILS ABSOLUTE COUNT (BEAKER) (test 17.13 K/ L 1.56-6.13 uodj=592) LYMPHOCYTES ABSOLUTE COUNT (BEAKER) (test 2.17 K/ L 1.18-3.74 seuk=111) MONOCYTES ABSOLUTE COUNT (BEAKER) (test 1.19 K/ L 0.24-0.36 bbac=239) EOSINOPHILS ABSOLUTE COUNT (BEAKER) (test 0.17 K/ L 0.04-0.36 lxci=708) BASOPHILS ABSOLUTE COUNT (BEAKER) (test 0.03 K/ L 0.01-0.08 rtwg=048) IMMATURE GRANULOCYTES-RELATIVE PERCENT (BEAKER) 1 % 0-1 (test lnms=7135) POCT-GLUCOSE [id number] 21:30:00 Test Item Value Reference Range Comments POC-GLUCOSE METER (BEAKER) 111 mg/dL 70-110 TESTED AT [address] (test qpuz=4878) [place] [address] POCT-GLUCOSE [id number] 18:19:00 Test Item Value Reference Range Comments POC-GLUCOSE METER (BEAKER) 175 mg/dL 70-110 TESTED AT [address] (test jvqm=0845) [place] [address] POCT-GLUCOSE [id number] 08:28:00 Test Item Value Reference Range Comments POC-GLUCOSE METER (BEAKER) 143 mg/dL 70-110 TESTED AT [address] (test jilg=3877) [place] [address] BASIC METABOLIC [id number] 06:32:00 Test Item Value Reference Range Comments SODIUM (BEAKER) (test 134 meq/L 136-145 amhw=944) POTASSIUM (BEAKER) (test 4.8 meq/L 3.5-5.1 kqty=227) CHLORIDE (BEAKER) (test 101 meq/L 98-107 aggp=280) CO2 (BEAKER) (test 28 meq/L 22-29 hcxp=603) BLOOD UREA NITROGEN 23 mg/dL 7-21 (BEAKER) (test lhjl=469) CREATININE (BEAKER) (test 0.66 mg/dL 0.57-1.25 flvf=282) GLUCOSE RANDOM (BEAKER) 107 mg/dL 70-105 (test tvuo=344) CALCIUM (BEAKER) (test 9.3 mg/dL 8.4-10.2 icsc=472) EGFR (BEAKER) (test mL/min/1.73 sq m INSUFFICIENT CLINICAL DATA fqvk=9167) TO CALCULATE ESTIMATED GFR. CBC W/PLT COUNT & AUTO [id number] 06:29:00 Test Item Value Reference Range Comments WHITE BLOOD CELL COUNT (BEAKER) (test vbsn=459) 20.6 K/ L 3.5-10.5 RED BLOOD CELL COUNT (BEAKER) (test ynrs=575) 4.79 M/ L 3.93-5.22 HEMOGLOBIN (BEAKER) (test oyxn=412) 12.1 GM/DL 11.2-15.7 HEMATOCRIT (BEAKER) (test aouf=399) 38.4 % 34.1-44.9 MEAN CORPUSCULAR VOLUME (BEAKER) (test arpr=553) 80.2 fL 79.4-94.8 MEAN CORPUSCULAR HEMOGLOBIN (BEAKER) (test 25.3 pg 25.6-32.2 ldvi=763) MEAN CORPUSCULAR HEMOGLOBIN CONC (BEAKER) (test 31.5 GM/DL 32.2-35.5 iqtu=599) RED CELL DISTRIBUTION WIDTH (BEAKER) (test 15.7 % 11.7-14.4 lykw=844) PLATELET COUNT (BEAKER) (test mjlf=893) 415 K/CU MM 150-450 MEAN PLATELET VOLUME (BEAKER) (test ykps=564) 9.0 fL 9.4-12.3 NUCLEATED RED BLOOD CELLS (BEAKER) (test 0 /100 WBC 0-0 jktx=580) NEUTROPHILS RELATIVE PERCENT (BEAKER) (test 79 % wibk=950) LYMPHOCYTES RELATIVE PERCENT (BEAKER) (test 11 % etqh=022) MONOCYTES RELATIVE PERCENT (BEAKER) (test 7 % kqie=561) EOSINOPHILS RELATIVE PERCENT (BEAKER) (test 2 % znmn=970) BASOPHILS RELATIVE PERCENT (BEAKER) (test 0 % dfzu=766) NEUTROPHILS ABSOLUTE COUNT (BEAKER) (test 16.22 K/ L 1.56-6.13 fheg=212) LYMPHOCYTES ABSOLUTE COUNT (BEAKER) (test 2.31 K/ L 1.18-3.74 jakx=756) MONOCYTES ABSOLUTE COUNT (BEAKER) (test 1.46 K/ L 0.24-0.36 dsnb=790) EOSINOPHILS ABSOLUTE COUNT (BEAKER) (test 0.37 K/ L 0.04-0.36 okqm=470) BASOPHILS ABSOLUTE COUNT (BEAKER) (test 0.03 K/ L 0.01-0.08 riue=280) IMMATURE GRANULOCYTES-RELATIVE PERCENT (BEAKER) 1 % 0-1 (test qzll=8948) POCT-GLUCOSE [id number] 21:28:00 Test Item Value Reference Range Comments POC-GLUCOSE METER (BEAKER) 170 mg/dL 70-110 TESTED AT [address] (test gxfy=7333) [place] [address] POCT-GLUCOSE [id number] 18:02:00 Test Item Value Reference Range Comments POC-GLUCOSE METER (BEAKER) 180 mg/dL 70-110 TESTED AT [address] (test okql=3635) [place] [id number] POCT-GLUCOSE [id number] 13:34:00 Test Item Value Reference Range Comments POC-GLUCOSE METER (BEAKER) 235 mg/dL 70-110 TESTED AT [address] (test vyfr=0670) [facility] [address] MR, BRAIN, [id number] 12:29:00FINAL REPORT MRI Brain with and without contrast Clinical History: Status post tumor resection Technique: MRI of the brain utilizing axial T1, T2, FLAIR, GRE, DWI, sagittal T1 ; and postgadolinium axial, sagittal, and coronal T1-weighted images. 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 There is air and fluid in the surgical cavity with adjacent signal dephasing. Allowing for this,there is no definitive evidence for residual masslike [...] There is no midline shift. IMPRESSION: Since 2017, status post resection of the midline cerebellar mass without evidence for residual neoplasm. Cerebellar leptomeningeal enhancement and a small subdural collection along the dorsal clivus and upper cervical canal are both likely reactive in nature. Signed: Daysi Bullard MDReport Verified Date/Time: 2017 12:29:16 Reading Location: [address] Neuro Reading Room CBC W/PLT COUNT & AUTO [id number] 07:59:00 Test Item Value Reference Range Comments WHITE BLOOD CELL COUNT (BEAKER) (test nkfz=084) 25.4 K/ L 3.5-10.5 RED BLOOD CELL COUNT (BEAKER) (test coht=654) 4.74 M/ L 3.93-5.22 HEMOGLOBIN (BEAKER) (test yalo=643) 12.2 GM/DL 11.2-15.7 HEMATOCRIT (BEAKER) (test rfup=647) 37.4 % 34.1-44.9 MEAN CORPUSCULAR VOLUME (BEAKER) (test uxba=454) 78.9 fL 79.4-94.8 MEAN CORPUSCULAR HEMOGLOBIN (BEAKER) (test 25.7 pg 25.6-32.2 wldr=272) MEAN CORPUSCULAR HEMOGLOBIN CONC (BEAKER) (test 32.6 GM/DL 32.2-35.5 ujiw=917) RED CELL DISTRIBUTION WIDTH (BEAKER) (test 15.6 % 11.7-14.4 ylwo=291) PLATELET COUNT (BEAKER) (test swsc=749) 471 K/CU MM 150-450 MEAN PLATELET VOLUME (BEAKER) (test twaf=679) 9.1 fL 9.4-12.3 NUCLEATED RED BLOOD CELLS (BEAKER) (test 0 /100 WBC 0-0 xobi=475) (CELLAVISION MANUAL DIFF)2018-03-08 07:59:00 Test Item Value Reference Range Comments NEUTROPHILS - REL (CELLAVISION)(BEAKER) (test 91 % eijh=6939) LYMPHOCYTES - REL (CELLAVISION)(BEAKER) (test 6 % tail=5956) MONOCYTES - REL (CELLAVISION)(BEAKER) (test 1 % lxnp=2565) BANDS - REL (CELLAVISION)(BEAKER) (test 2 % 0-10 cpug=4043) NEUTROPHILS - ABS (CELLAVISION)(BEAKER) (test 23.11 K/ul 1.56-6.13 dvyr=0185) LYMPHOCYTES - ABS (CELLAVISION)(BEAKER) (test 1.52 K/ul 1.18-3.74 fkdb=0043) MONOCYTES - ABS (CELLAVISION)(BEAKER) (test 0.25 K/uL 0.24-0.36 yvdu=2288) BANDS - ABS (CELLAVISION)(BEAKER) (test 0.51 K/uL 0.00-0.80 vwyj=4604) TOTAL COUNTED (BEAKER) (test rlvy=9693) 100 WBC MORPHOLOGY (BEAKER) (test fump=080) Normal PLT MORPHOLOGY (BEAKER) (test amux=339) Normal POLYCHROMATOPHILLIC RBCS(BEAKER) (test ucns=654) 3+ many ANISOCYTOSIS (BEAKER) (test bvzw=118) 2+ moderate MICROCYTES (BEAKER) (test ffxa=714) 1+ few ARTIFACT (CELLAVISION)(BEAKER) (test yqee=8694) Present PLATELET CONCENTRATION (CELLAVISION)(BEAKER) Increased (test wstr=1422) Received comment: User comments: Slide comments:BASIC METABOLIC [id number] 04:18:00 Test Item Value Reference Range Comments SODIUM (BEAKER) (test 133 meq/L 136-145 emaq=050) POTASSIUM (BEAKER) (test 4.3 meq/L 3.5-5.1 dqal=969) CHLORIDE (BEAKER) (test 101 meq/L 98-107 yjaj=481) CO2 (BEAKER) (test 25 meq/L 22-29 wovl=248) BLOOD UREA NITROGEN 17 mg/dL 7-21 (BEAKER) (test kmqx=454) CREATININE (BEAKER) (test 0.65 mg/dL 0.57-1.25 fnzh=984) GLUCOSE RANDOM (BEAKER) 121 mg/dL 70-105 (test roeg=791) CALCIUM (BEAKER) (test 9.2 mg/dL 8.4-10.2 atwb=017) EGFR (BEAKER) (test mL/min/1.73 sq m INSUFFICIENT CLINICAL DATA pjbo=5821) TO CALCULATE ESTIMATED GFR. POCT-GLUCOSE [id number] 23:21:00 Test Item Value Reference Range Comments POC-GLUCOSE METER (BEAKER) 122 mg/dL 70-110 TESTED AT [address] (test pkat=0619) [place] [address] POCT-GLUCOSE [id number] 22:02:00 Test Item Value Reference Range Comments POC-GLUCOSE METER (BEAKER) 122 mg/dL 70-110 TESTED AT [address] (test bzje=9105) [place] [address] POCT-GLUCOSE [id number] 18:27:00 Test Item Value Reference Range Comments POC-GLUCOSE METER (BEAKER) 120 mg/dL 70-110 TESTED AT [address] (test mbvj=9741) [place] [address] POCT-GLUCOSE [id number] 12:26:00 Test Item Value Reference Range Comments POC-GLUCOSE METER (BEAKER) 130 mg/dL 70-110 TESTED AT [address] (test tial=5612) [place] [address] POCT-GLUCOSE [id number] 08:44:00 Test Item Value Reference Range Comments POC-GLUCOSE METER (BEAKER) 141 mg/dL 70-110 TESTED AT [address] (test xntz=5850) [place] [address] CBC W/PLT COUNT & AUTO [id number] 07:37:00 Test Item Value Reference Range Comments WHITE BLOOD CELL COUNT (BEAKER) (test tayi=850) 27.9 K/ L 3.5-10.5 RED BLOOD CELL COUNT (BEAKER) (test fdsc=692) 4.44 M/ L 3.93-5.22 HEMOGLOBIN (BEAKER) (test dkna=424) 11.3 GM/DL 11.2-15.7 HEMATOCRIT (BEAKER) (test slfd=537) 35.2 % 34.1-44.9 MEAN CORPUSCULAR VOLUME (BEAKER) (test ysaj=263) 79.3 fL 79.4-94.8 MEAN CORPUSCULAR HEMOGLOBIN (BEAKER) (test 25.5 pg 25.6-32.2 jbtg=229) MEAN CORPUSCULAR HEMOGLOBIN CONC (BEAKER) (test 32.1 GM/DL 32.2-35.5 psgu=752) RED CELL DISTRIBUTION WIDTH (BEAKER) (test 15.2 % 11.7-14.4 ylmy=122) PLATELET COUNT (BEAKER) (test uhvt=059) 491 K/CU MM 150-450 MEAN PLATELET VOLUME (BEAKER) (test uskc=571) 9.0 fL 9.4-12.3 NUCLEATED RED BLOOD CELLS (BEAKER) (test 0 /100 WBC 0-0 ntee=634) (CELLAVISION MANUAL DIFF)2018-03-07 07:37:00 Test Item Value Reference Range Comments NEUTROPHILS - REL (CELLAVISION)(BEAKER) (test 91 % yqff=5941) LYMPHOCYTES - REL (CELLAVISION)(BEAKER) (test 3 % vhvd=2017) MONOCYTES - REL (CELLAVISION)(BEAKER) (test 5 % gjph=5297) ATYPICAL LYMPHOCYTES - REL (CELLAVISION)(BEAKER) 1 % 0-0 (test cmxg=2808) NEUTROPHILS - ABS (CELLAVISION)(BEAKER) (test 25.39 K/ul 1.56-6.13 svrw=7745) LYMPHOCYTES - ABS (CELLAVISION)(BEAKER) (test 0.84 K/ul 1.18-3.74 ckti=4627) MONOCYTES - ABS (CELLAVISION)(BEAKER) (test 1.40 K/uL 0.24-0.36 mruh=5285) ATYPICAL LYMPHOCYTES - ABS (CELLAVISION)(BEAKER) 0.28 K/uL 0.00-0.00 (test gjrz=1664) TOTAL COUNTED (BEAKER) (test lrwh=0852) 100 WBC MORPHOLOGY (BEAKER) (test smeu=597) Normal LARGE PLT(BEAKER) (test ekux=4591) Present POLYCHROMATOPHILLIC RBCS(BEAKER) (test tddv=805) 1+ few ARTIFACT (CELLAVISION)(BEAKER) (test ximc=8327) Present PLATELET CONCENTRATION (CELLAVISION)(BEAKER) Increased (test smpd=5059) Received comment: User comments: Slide comments:BASIC METABOLIC [id number] 04:29:00 Test Item Value Reference Range Comments SODIUM (BEAKER) (test 134 meq/L 136-145 aecy=083) POTASSIUM (BEAKER) (test 4.3 meq/L 3.5-5.1 zekt=443) CHLORIDE (BEAKER) (test 104 meq/L 98-107 scfr=818) CO2 (BEAKER) (test 23 meq/L 22-29 kyrj=075) BLOOD UREA NITROGEN 18 mg/dL 7-21 (BEAKER) (test jeok=489) CREATININE (BEAKER) (test 0.63 mg/dL 0.57-1.25 yeew=085) GLUCOSE RANDOM (BEAKER) 145 mg/dL 70-105 (test akfx=330) CALCIUM (BEAKER) (test 8.8 mg/dL 8.4-10.2 xrre=140) EGFR (BEAKER) (test mL/min/1.73 sq m INSUFFICIENT CLINICAL DATA nrrq=9421) TO CALCULATE ESTIMATED GFR. [id number] 04:28:00 Test Item Value Reference Range Comments PHOSPHORUS (BEAKER) (test lfpk=648) 3.4 mg/dL 2.3-4.7 [id number] 04:28:00 Test Item Value Reference Range Comments MAGNESIUM (BEAKER) (test ifry=549) 1.9 mg/dL 1.6-2.6 POCT-GLUCOSE [id number] 22:29:00 Test Item Value Reference Range Comments POC-GLUCOSE METER (BEAKER) 147 mg/dL 70-110 TESTED AT [facility] [address] [facility] (test zcco=6816) [facility] [address] POCT-GLUCOSE [id number] 12:29:00 Test Item Value Reference Range Comments POC-GLUCOSE METER (BEAKER) 87 mg/dL 70-110 TESTED AT [facility] [address] [facility] (test mtyf=4990) [facility] [address] POCT-GLUCOSE [id number] 08:21:00 Test Item Value Reference Range Comments POC-GLUCOSE METER (BEAKER) 122 mg/dL 70-110 TESTED AT [address] (test pijd=1369) [place] [address] [id number] 05:32:00 Test Item Value Reference Range Comments PROTIME (BEAKER) (test uezr=529) 13.1 seconds 11.7-14.7 INR (BEAKER) (test yljg=615) 1.0 <=5.9 PARTIAL THROMBOPLASTIN TIME (BEAKER) (test 24.2 seconds 22.5-36.0 hiou=137) RECOMMENDED COUMADIN/WARFARIN INR THERAPY RANGESSTANDARD DOSE: 2.0 - 3.0 Includes: PROPHYLAXIS forvenous thrombosis, systemic embolization; TREATMENT for venous thrombosis and/or pulmonary embolus.HIGH RISK: Target INR is 2.5-3.5 for patients with mechanical heart valves.POCT-GLUCOSE [id number] 05:17:00 Test Item Value Reference Range Comments POC-GLUCOSE METER (BEAKER) 127 mg/dL 70-110 TESTED AT [address] (test ygak=3366) [place] [id number] BASIC METABOLIC [id number] 05:16:00 Test Item Value Reference Range Comments SODIUM (BEAKER) (test 135 meq/L 136-145 dhbo=512) POTASSIUM (BEAKER) (test 4.1 meq/L 3.5-5.1 fiqh=279) CHLORIDE (BEAKER) (test 103 meq/L 98-107 aogf=066) CO2 (BEAKER) (test 22 meq/L 22-29 ianc=280) BLOOD UREA NITROGEN 19 mg/dL 7-21 (BEAKER) (test pelh=492) CREATININE (BEAKER) (test 0.69 mg/dL 0.57-1.25 uqai=741) GLUCOSE RANDOM (BEAKER) 131 mg/dL 70-105 (test oxlv=773) CALCIUM (BEAKER) (test 9.3 mg/dL 8.4-10.2 hmnc=810) EGFR (BEAKER) (test mL/min/1.73 sq m INSUFFICIENT CLINICAL DATA bpio=0522) TO CALCULATE ESTIMATED GFR. CBC W/PLT COUNT & AUTO [id number] 04:56:00 Test Item Value Reference Range Comments WHITE BLOOD CELL COUNT (BEAKER) (test znvy=864) 22.3 K/ L 3.5-10.5 RED BLOOD CELL COUNT (BEAKER) (test dpbq=931) 4.71 M/ L 3.93-5.22 HEMOGLOBIN (BEAKER) (test pbdz=742) 11.7 GM/DL 11.2-15.7 HEMATOCRIT (BEAKER) (test ccfr=145) 37.1 % 34.1-44.9 MEAN CORPUSCULAR VOLUME (BEAKER) (test znnn=687) 78.8 fL 79.4-94.8 MEAN CORPUSCULAR HEMOGLOBIN (BEAKER) (test 24.8 pg 25.6-32.2 aaro=778) MEAN CORPUSCULAR HEMOGLOBIN CONC (BEAKER) (test 31.5 GM/DL 32.2-35.5 hqef=326) RED CELL DISTRIBUTION WIDTH (BEAKER) (test 15.0 % 11.7-14.4 lpls=336) PLATELET COUNT (BEAKER) (test vxko=478) 529 K/CU MM 150-450 MEAN PLATELET VOLUME (BEAKER) (test wsgt=428) 8.9 fL 9.4-12.3 NUCLEATED RED BLOOD CELLS (BEAKER) (test 0 /100 WBC 0-0 tfcd=416) NEUTROPHILS RELATIVE PERCENT (BEAKER) (test 84 % wjig=133) LYMPHOCYTES RELATIVE PERCENT (BEAKER) (test 9 % qoys=973) MONOCYTES RELATIVE PERCENT (BEAKER) (test 4 % guwz=724) EOSINOPHILS RELATIVE PERCENT (BEAKER) (test 1 % ocud=653) BASOPHILS RELATIVE PERCENT (BEAKER) (test 0 % usgl=916) NEUTROPHILS ABSOLUTE COUNT (BEAKER) (test 18.70 K/ L 1.56-6.13 ntev=157) LYMPHOCYTES ABSOLUTE COUNT (BEAKER) (test 2.04 K/ L 1.18-3.74 uktw=856) MONOCYTES ABSOLUTE COUNT (BEAKER) (test 0.99 K/ L 0.24-0.36 xyfs=132) EOSINOPHILS ABSOLUTE COUNT (BEAKER) (test 0.12 K/ L 0.04-0.36 fogs=059) BASOPHILS ABSOLUTE COUNT (BEAKER) (test 0.05 K/ L 0.01-0.08 kvlt=363) IMMATURE GRANULOCYTES-RELATIVE PERCENT (BEAKER) 2 % 0-1 (test grxt=2361) POCT-GLUCOSE [id number] 22:07:00 Test Item Value Reference Range Comments POC-GLUCOSE METER (BEAKER) 157 mg/dL 70-110 TESTED AT [facility] [address] [facility] (test tvui=5667) [facility] [address] POCT-GLUCOSE [id number] 16:55:00 Test Item Value Reference Range Comments POC-GLUCOSE METER (BEAKER) 146 mg/dL 70-110 TESTED AT [facility] [address] [facility] (test roas=[id number]) [facility] [address] TISSUE [id number] 15:23:00Surgical Pathology Report Case: [id number] Authorizing Provider: Robert Tirado MD Collected: 03/04/2018916 Ordering Location: [facility] Received: 03/04/2018920 SERVICES Pathologist: Terry Stanford MD Specimens: A) - Lung, Right Upper Lobe, Right upper lobe endobronchial biopsy B) -Lung, Right Upper Lobe, EBBX. Reflex genetic markers. PART A RIGHT UPPER LOBE LUNG, ENDOBRONCHIAL BIOPSY:ADENOCARCINOMA.SEE DIAGNOSTIC COMMENT.PART B RIGHT UPPER LOBE LUNG, ENDOBRONCHIAL BIOPSY:ADENOCARCINOMA.SEE DIAGNOSTIC COMMENT. Signing Pathologist Direct Phone Line: Immunohistochemical studies performed on block B1 demonstrate the tumor cells to be positive for TTF1 and Napsin A. They are negative for ER and PAX8. The immunoprofile is most compatible with an adenocarcinoma of pulmonary origin.[id number], 63640, 48586n7, 41670Y. Right upper lobe endobronchial biopsy. B. Right upper lobe lung endobronchial biopsy A. Received fresh labeled "right upper lobe endobronchial biopsy" is a 0.8 cm x 0.5 x 0.4 cm santiago-white irregular tissue fragment. Touch prep is performed. The specimen is bisected and submitted in cassette A1. TN/plB. Consists of multiple fragments of santiago-red soft tissue measuring 1 x 0.5 x 0.3 cm in aggregate submitted entirely in B1. CG /ew A1FS, LUNG, RIGHT UPPER LOBE, BIOPSY: - NONSMALL CELL CARCINOMA, DEFERRED FOR INTERPRETATION TO PERMANENT SECTIONING ANDIMMUNO STAINSPERFORMED. The interpretation of this case included the use of immunohistochemistry or special stains. BLOCK B1- TTF1, NAPSIN A, ER, WFO4Jqglhmigegoiorvwgntz technical testing was performed at [facility], Pathology Laboratory where it was developed and its performance characteristics were determined. It has not been cleared or approved by the U.S. Food and Drug Administration. The FDA has determined that such clearance or approval is not necessary. The test is usedfor clinical purposes. It should not be regarded as investigational or for research. This laboratoryis certified under the Clinical Laboratory Improvement Amendments of 1988 (CLIA-88) as qualified to perform high complexity clinical laboratory testing.FINE NEEDLE ASPIRATE BY [id number] 12 :41:00Medical Cytology Report Case: [id number] Authorizing Provider: Robert Tirado MD Collected: 03/04/2018 1023 Ordering Location: [address] Received: 03/04/2018 1244 Service Pathologist: Ben Vila MD Specimen: Lymph Node, Interlobar, Right, Station 11R LYMPH NODE, INTERLOBAR RIGHT, STATION 11R EBUS FNA BY CLINICIAN (CYTOSPINS OF ASPIRATE): - NEGATIVE FOR MALIGNANCY - LYMPHOCYTES PRESENT Signing Pathologist Direct Phone Line: [phone] signed by Ben Vila MD on 2017 at 12:41 PMPlease also see surgical pathology report [id number] and cytopathology reports [id number], 3646, 3647 and 3648. 05988Qewl massLYMPH NODE, INTERLOBAR RIGHT, STATION 11R EBUS FNA40 mls in cytorich red; 2 cytospinsCollected: [id number]: [id number] interpretation of this case included the use of immunohistochemistry or special stains. Immunohistochemistry technical testing was performed at [facility], Pathology Laboratory where it was developed and its performance characteristics were determined. It has not been cleared or approved by the U.S. Food and Drug Administration. The FDA has determined that such clearance or approval isnot necessary. The test is used for clinical purposes. It should not be regarded as investigational or for research. This laboratory is certified under the Clinical Laboratory Improvement Amendments pv0337 (CLIA-88) as qualified to perform high complexity clinical laboratory testing.[facility], Department of Pathology, [address] [place] [id number], [facility], [facility] of [facility] , [address] [place] [id number], [facility]dfnymLos [facility], Department of Pathology, [address] [place] [id number] , HWRC NEEDLE ASPIRATE BY [id number] 12:40:00Medical Cytology Report Case: [id number] Authorizing Provider: Robert Tirado MD Collected: 03/04/2018 1008 Ordering Location: [address] Received: 03/04/2018 1244 Service Pathologist: Ben Vila MD Specimen: Lymph Node, Lower Paratracheal, Right, Station 4R LYMPH NODE, LOWER PARATRACHEAL, RIGHT, STATION 4R EBUS FNA BY CLINICIAN (CYTOSPINS AND CELL BLOCK OF ASPIRATE): - NEGATIVE FOR MALIGNANCY Signing Pathologist Direct Phone Line: Smears and cell block show good sampling of anthracotic lymph node without granuloma or neoplasm.Please also see surgical pathology report [id number] and cytopathology reports [id number], 3646, 3647 and 3649. [id number], [id number] massLYMPH NODE, LOWER PARATRACHEAL, RIGHT, STATION 4R EBUS FNA40 mls in cytorich red; 2 cytospins, cell blockCollected: [id number]: [id number] interpretation of this case included the use of immunohistochemistry or special stains. Immunohistochemistry technical testing was performed at [facility], Pathology Laboratory where it was developed and its performance characteristics were determined. It has not been cleared or approved by the U.S. Food and Drug Administration. The FDA has determined that such clearance or approval is not necessary. The test is used for clinical purposes. It should not be regarded as investigational or for research. This laboratory is certified under the Clinical Laboratory Improvement Amendments of 1988 (CLIA-88 ) as qualified to perform high complexity clinical laboratory testing.[facility], Department of Pathology, [address] [place] [address], [facility], [facility] of [facility], [address] [place] [address], QvekjzLos [facility], [facility] of [facility], [address] [place] [address], UPLS NEEDLE ASPIRATE BY [id number] 12:38: 00Medical Cytology Report Case: [id number] Authorizing Provider: Robert Tirado MD Collected : 03/04/2018 1002 Ordering Location: [address] Received: 03/04/2018 1244 Service Pathologist: Ben Vila MD Specimen: Lymph Node, Subcarinal, Station 7 LYMPH NODE, SUBCARINAL, STATION 7 EBUS FNA BY CLINICIAN (CYTOSPINS AND CELL BLOCK OF ASPIRATE): - NEGATIVE FOR MALIGNANCY Signing Pathologist Direct Phone Line: Smears and cell block show good sampling of anthracotic lymph nodewithout granuloma or neoplasm.Please also see surgical pathology report [id number] and cytopathology reports [id number], 3646, 3648 and 3649. 59588, 74080Pchh massLYMPH NODE, SUBCARINAL, STATION 7 FNAPrepared cell block(A2) and 2 cytospins from 40 ml cytorich red fixative specimen Collected: [id number]: [id number] interpretation of this case included the use of immunohistochemistry or special stains.Immunohistochemistry technical testing was performed at [facility], Pathology Laboratory where it was developed and its performance characteristics were determined. It has not been cleared or approved by the U.S. Food and Drug Administration. The FDA has determined that such clearance or approval is not necessary. The test is used for clinical purposes. It should not be regardedas investigational or for research. This laboratory is certified under the Clinical Laboratory Improvement Amendments of 1988 (CLIA-88) as qualified to perform high complexity clinical laboratory testing.[facility], Department of Pathology, [address] [place] [address], EkmthwLos Angeles [facility], Department of Pathology, [address] [place] [address], Tel CLos [facility], Department of Pathology, [address] [place] [address], BYKX NEEDLE ASPIRATE BY [id number] 12:35:00Medical Cytology Report Case: [id number] Authorizing Provider: Robert Tirado MD Collected: 03/04/2018 1001 Ordering Location: [address] Received: 03/04/2018 1244 Service Pathologist: Ben Vila MD Specimen: Lymph Node, Lower Paratracheal , Left, Station 4L LYMPH NODE, LOWER PARATRACHEAL, LEFT, STATION 4L, FNA BY CLINICIAN (CYTOSPINS OF ASPIRATE): - NEGATIVE FOR MALIGNANCY PREDOMINANTLY BRONCHIAL EPITHELIAL CELLS Signing Pathologist Direct Phone Line: [phone] signed by Ben Vila MD on 03/05/2018 at 12:35 PMPlease also see surgical pathology report [id number] and cytopathology reports [id number], 3647, 3648 and 3649. 49545Blrp massLYMPH NODE, LOWER PARATRACHEAL, LEFT, STATION 4L FNAPrepared 2 cytospins from 40 ml cytorich red fixative sampleCollected: [id number]: [id number] interpretation of this case included the use of immunohistochemistry or special stains. Immunohistochemistry technical testing was performed at [facility], Pathology Laboratory where it was developed and its performance characteristicswere determined. It has not been cleared or approved [...] qualified to perform high complexity clinical laboratory testing.[facility], Department of Pathology, [address] [place] [address], MiqnbiLos Angeles [facility], Department of Pathology, [address] [place] [address], Tel JLos Angeles [facility], Department of [facility]ology, [address] [place] [address], IBCB-GLUCOSE [id number] 12:34:00 Test Item Value Reference Range Comments POC-GLUCOSE METER (BEAKER) 119 mg/dL 70-110 TESTED AT [address] (test zgra=1951) [facility] [address] FINE NEEDLE ASPIRATE BY [id number] 12:34:00Medical Cytology Report Case: [id number] Authorizing Provider: Robert Tirado MD Collected: 03/04/2018 1001 Ordering Location: [address] Received: 1244 Service Pathologist: Ben Vila MD Specimen: Lymph Node, Interlobar, Left, Station 11L LYMPH NODE, INTERLOBAR, LEFT, STATION 11L, FNA BY CLINICIAN ( CYTOSPINS AND CELL BLOCK OF ASPIRATE): - NEGATIVE FOR MALIGNANCY Signing Pathologist Direct Phone Line: [phone] signed by Ben Vila MD on 03/05/2018 at 12:34 PMSmears and cell block show good sampling of anthracotic lymph node without granuloma or neoplasm.Please also see surgical pathology report [id number] and cytopathology reports [id number], 3647 , 3648 and 3649. 86690, [id number] massLYMPH NODE, INTERLOBAR, LEFT, [id number] FNAPrepared cell block(A2) and 2 cytospins from 45 ml cytorich red fixative sampleCollected: [id number]: [id number] interpretation of this case included the use of immunohistochemistry or special stains. Immunohistochemistry technical testing was performed at [facility], Pathology Laboratory where it was developed and its performance characteristics were determined. It has not been cleared or approved by the U.S. Food and Drug Administration. The FDA has determined that such clearance or approval is not necessary. The test is used for clinical purposes. It should not beregarded as investigational or for research. This laboratory is certified under the Clinical Laboratory Improvement Amendments of 1988 (CLIA-88) as qualified to perform high complexity clinical laboratory testing.[facility], Department of Pathology, [address] [place] [address], Tel DLos Angeles [facility], Department of Pathology, [address] [place] [address], MglgmlLos Angeles Metropolitan Medical Center, Department of Pathology, [address] [place] [address], Tel [id number] [id number] 08:25:00 Test Item Value Reference Range Comments POC-GLUCOSE METER (BEAKER) 114 mg/dL 70-110 TESTED AT [address] (test slps=8592) [facility] [address] BASIC METABOLIC [id number] 05:45:00 Test Item Value Reference Range Comments SODIUM (BEAKER) (test 136 meq/L 136-145 rowa=399) POTASSIUM (BEAKER) (test 4.5 meq/L 3.5-5.1 Specimen slightly dpav=743) hemolyzed CHLORIDE (BEAKER) (test 104 meq/L 98-107 zmzt=177) CO2 (BEAKER) (test 24 meq/L 22-29 sxph=188) BLOOD UREA NITROGEN 18 mg/dL 7-21 (BEAKER) (test iyis=646) CREATININE (BEAKER) (test 0.72 mg/dL 0.57-1.25 Specimen slightly ahuk=924) hemolyzed GLUCOSE RANDOM (BEAKER) 126 mg/dL 70-105 (test rpyh=559) CALCIUM (BEAKER) (test 9.8 mg/dL 8.4-10.2 gtbd=205) EGFR (BEAKER) (test mL/min/1.73 sq m INSUFFICIENT CLINICAL DATA hrjj=5057) TO CALCULATE ESTIMATED GFR. CBC W/PLT COUNT & AUTO [id number] 05:42:00 Test Item Value Reference Range Comments WHITE BLOOD CELL COUNT (BEAKER) (test dwbv=876) 22.5 K/ L 3.5-10.5 RED BLOOD CELL COUNT (BEAKER) (test xmqt=640) 5.03 M/ L 3.93-5.22 HEMOGLOBIN (BEAKER) (test uibl=973) 12.6 GM/DL 11.2-15.7 HEMATOCRIT (BEAKER) (test rovx=048) 40.7 % 34.1-44.9 MEAN CORPUSCULAR VOLUME (BEAKER) (test kdia=181) 80.9 fL 79.4-94.8 MEAN CORPUSCULAR HEMOGLOBIN (BEAKER) (test 25.0 pg 25.6-32.2 tnmr=756) MEAN CORPUSCULAR HEMOGLOBIN CONC (BEAKER) (test 31.0 GM/DL 32.2-35.5 kqcs=626) RED CELL DISTRIBUTION WIDTH (BEAKER) (test 15.0 % 11.7-14.4 wzgn=426) PLATELET COUNT (BEAKER) (test dkon=690) 543 K/CU MM 150-450 MEAN PLATELET VOLUME (BEAKER) (test mhpk=171) 9.5 fL 9.4-12.3 NUCLEATED RED BLOOD CELLS (BEAKER) (test 0 /100 WBC 0-0 fwco=142) NEUTROPHILS RELATIVE PERCENT (BEAKER) (test 86 % nkqn=769) LYMPHOCYTES RELATIVE PERCENT (BEAKER) (test 8 % dwai=239) MONOCYTES RELATIVE PERCENT (BEAKER) (test 4 % bjza=826) EOSINOPHILS RELATIVE PERCENT (BEAKER) (test 0 % msiy=380) BASOPHILS RELATIVE PERCENT (BEAKER) (test 0 % nxap=467) NEUTROPHILS ABSOLUTE COUNT (BEAKER) (test 19.38 K/ L 1.56-6.13 siji=721) LYMPHOCYTES ABSOLUTE COUNT (BEAKER) (test 1.81 K/ L 1.18-3.74 jnse=191) MONOCYTES ABSOLUTE COUNT (BEAKER) (test 0.99 K/ L 0.24-0.36 akuf=311) EOSINOPHILS ABSOLUTE COUNT (BEAKER) (test 0.05 K/ L 0.04-0.36 jixm=662) BASOPHILS ABSOLUTE COUNT (BEAKER) (test 0.04 K/ L 0.01-0.08 oucs=009) IMMATURE GRANULOCYTES-RELATIVE PERCENT (BEAKER) 1 % 0-1 (test wmmg=0448) BLOOD [id number] 23:01:00 Test Item Value Reference Range Comments CULTURE (BEAKER) (test flso=3655) No growth in 5 days POCT-GLUCOSE [id number] 20:32:00 Test Item Value Reference Range Comments POC-GLUCOSE METER (BEAKER) 122 mg/dL 70-110 TESTED AT [address] (test gref=9199) [place] [address] POCT-GLUCOSE [id number] 17:53:00 Test Item Value Reference Range Comments POC-GLUCOSE METER (BEAKER) 199 mg/dL 70-110 TESTED AT [address] (test fcqy=2777) [place] [address] EBUS FNA [id number] 14:00:00 Test Item Value Reference Range Comments CYTOLOGY RESULT POINTER (BEAKER) (test See Separate Report kmnj=2909) EBUS FNA [id number] 14:00:00 Test Item Value Reference Range Comments CYTOLOGY RESULT POINTER (BEAKER) (test See Separate Report umtw=8918) EBUS FNA [id number] 14:00:00 Test Item Value Reference Range Comments CYTOLOGY RESULT POINTER (BEAKER) (test See Separate Report hnvj=8102) EBUS FNA [id number] 14:00:00 Test Item Value Reference Range Comments CYTOLOGY RESULT POINTER (BEAKER) (test See Separate Report lnzj=0093) EBUS FNA [id number] 14:00:00 Test Item Value Reference Range Comments CYTOLOGY RESULT POINTER (BEAKER) (test See Separate Report yefk=6365) POCT-GLUCOSE [id number] 12:06:00 Test Item Value Reference Range Comments POC-GLUCOSE METER (BEAKER) 114 mg/dL 70-110 TESTED AT [address] (test fohn=1648) [place] [address] BLOOD [id number] 10:00:00 Test Item Value Reference Range Comments CULTURE (BEAKER) (test fbav=2472) No growth in 5 days POCT-GLUCOSE [id number] 08:22:00 Test Item Value Reference Range Comments POC-GLUCOSE METER (BEAKER) 120 mg/dL 70-110 TESTED AT [address] (test hlxz=1182) [place] [address] [id number] 06:39:00 Test Item Value Reference Range Comments PARTIAL THROMBOPLASTIN TIME (BEAKER) (test 25.2 seconds 22.5-36.0 arwo=494) PROTHROMBIN [id number] 06:38:00 Test Item Value Reference Range Comments PROTIME (BEAKER) (test flej=895) 13.6 seconds 11.7-14.7 INR (BEAKER) (test vwns=166) 1.0 <=5.9 RECOMMENDED COUMADIN/WARFARIN INR THERAPY RANGESSTANDARD DOSE: 2.0 - 3.0 Includes: PROPHYLAXIS forvenous thrombosis, systemic embolization; TREATMENT for venous thrombosis and/or pulmonary embolus.HIGH RISK: Target INR is 2.5-3.5 for patients with mechanical heart valves.BASIC METABOLIC [id number] 06:38: 00 Test Item Value Reference Range Comments SODIUM (BEAKER) (test 136 meq/L 136-145 eizb=637) POTASSIUM (BEAKER) (test 4.4 meq/L 3.5-5.1 nuww=259) CHLORIDE (BEAKER) (test 105 meq/L 98-107 wohz=438) CO2 (BEAKER) (test 23 meq/L 22-29 trsz=160) BLOOD UREA NITROGEN 19 mg/dL 7-21 (BEAKER) (test bocs=069) CREATININE (BEAKER) (test 0.66 mg/dL 0.57-1.25 xeio=830) GLUCOSE RANDOM (BEAKER) 120 mg/dL 70-105 (test galr=816) CALCIUM (BEAKER) (test 9.9 mg/dL 8.4-10.2 czua=144) EGFR (BEAKER) (test mL/min/1.73 sq m INSUFFICIENT CLINICAL DATA uqpt=2715) TO CALCULATE ESTIMATED GFR. CBC W/PLT COUNT & AUTO [id number] 06:19:00 Test Item Value Reference Range Comments WHITE BLOOD CELL COUNT (BEAKER) (test prck=576) 22.5 K/ L 3.5-10.5 RED BLOOD CELL COUNT (BEAKER) (test kgby=160) 4.92 M/ L 3.93-5.22 HEMOGLOBIN (BEAKER) (test ledh=303) 12.4 GM/DL 11.2-15.7 HEMATOCRIT (BEAKER) (test qelw=675) 39.7 % 34.1-44.9 MEAN CORPUSCULAR VOLUME (BEAKER) (test dgzy=809) 80.7 fL 79.4-94.8 MEAN CORPUSCULAR HEMOGLOBIN (BEAKER) (test 25.2 pg 25.6-32.2 pwsp=309) MEAN CORPUSCULAR HEMOGLOBIN CONC (BEAKER) (test 31.2 GM/DL 32.2-35.5 kvwq=227) RED CELL DISTRIBUTION WIDTH (BEAKER) (test 14.6 % 11.7-14.4 chjm=353) PLATELET COUNT (BEAKER) (test bklr=027) 570 K/CU MM 150-450 MEAN PLATELET VOLUME (BEAKER) (test lgvv=337) 9.0 fL 9.4-12.3 NUCLEATED RED BLOOD CELLS (BEAKER) (test 0 /100 WBC 0-0 dsix=835) NEUTROPHILS RELATIVE PERCENT (BEAKER) (test 83 % xkuq=907) LYMPHOCYTES RELATIVE PERCENT (BEAKER) (test 11 % ogsq=440) MONOCYTES RELATIVE PERCENT (BEAKER) (test 5 % glfq=431) EOSINOPHILS RELATIVE PERCENT (BEAKER) (test 0 % ppvn=265) BASOPHILS RELATIVE PERCENT (BEAKER) (test 0 % sswd=946) NEUTROPHILS ABSOLUTE COUNT (BEAKER) (test 18.65 K/ L 1.56-6.13 jseu=161) LYMPHOCYTES ABSOLUTE COUNT (BEAKER) (test 2.36 K/ L 1.18-3.74 fivy=417) MONOCYTES ABSOLUTE COUNT (BEAKER) (test 1.01 K/ L 0.24-0.36 mfsu=926) EOSINOPHILS ABSOLUTE COUNT (BEAKER) (test 0.09 K/ L 0.04-0.36 oaxm=389) BASOPHILS ABSOLUTE COUNT (BEAKER) (test 0.07 K/ L 0.01-0.08 otio=465) IMMATURE GRANULOCYTES-RELATIVE PERCENT (BEAKER) 2 % 0-1 (test otch=9306) POCT-GLUCOSE [id number] 22:29:00 Test Item Value Reference Range Comments POC-GLUCOSE METER (BEAKER) 175 mg/dL 70-110 TESTED AT [place] [id number] [facility] (test iwja=6177) [facility] [address] BONE AND/OR JOINT IMAGING, WHOLE [id number] 15:34:00No histologic dx yet, but brain met with lung mass.FINAL REPORT PROCEDURE: BONE SCAN, WHOLE BODY CPT CODE: 96010 INDICATION: Right lung cancer with cerebellar metastasis PROTOCOL: 21.6 mCi of Tc-99m MDP was injected intravenously. Whole body and selected spot images were obtained approximately 3 hours later. FINDINGS: Tracer activity is mildly increased in the shoulders, sternoclavicular joints, sternal manubrium, hips. There is mild irregularity within the spine. IMPRESSION: 1. No specific evidence of bony neoplastic disease.2. Mild to moderate degenerative changes in the spine and peripheral joints. Images for comparison/correlation were recent torso CT. Signed: Antoni Zimmerman MDReport Verified Date/Time: 03/03/2018 15:34: 30 Reading Location: [address] Reading Room POCT-GLUCOSE [id number] 11:44:00 Test Item Value Reference Range Comments POC-GLUCOSE METER (BEAKER) 180 mg/dL 70-110 TESTED AT [address] (test igzh=0270) [facility] [address] POCT-GLUCOSE [id number] 08:31:00 Test Item Value Reference Range Comments POC-GLUCOSE METER (BEAKER) 111 mg/dL 70-110 TESTED AT [address] (test rame=4812) [facility] [address] CBC W/PLT COUNT & AUTO [id number] 05:37:00 Test Item Value Reference Range Comments WHITE BLOOD CELL COUNT (BEAKER) (test lvqw=377) 18.9 K/ L 3.5-10.5 RED BLOOD CELL COUNT (BEAKER) (test wqmx=262) 4.58 M/ L 3.93-5.22 HEMOGLOBIN (BEAKER) (test gtrc=463) 11.6 GM/DL 11.2-15.7 HEMATOCRIT (BEAKER) (test lsgv=156) 36.7 % 34.1-44.9 MEAN CORPUSCULAR VOLUME (BEAKER) (test hrdi=992) 80.1 fL 79.4-94.8 MEAN CORPUSCULAR HEMOGLOBIN (BEAKER) (test 25.3 pg 25.6-32.2 jisx=668) MEAN CORPUSCULAR HEMOGLOBIN CONC (BEAKER) (test 31.6 GM/DL 32.2-35.5 ltjg=629) RED CELL DISTRIBUTION WIDTH (BEAKER) (test 14.4 % 11.7-14.4 pkzr=946) PLATELET COUNT (BEAKER) (test bblg=268) 505 K/CU MM 150-450 MEAN PLATELET VOLUME (BEAKER) (test dqso=017) 9.1 fL 9.4-12.3 NUCLEATED RED BLOOD CELLS (BEAKER) (test 0 /100 WBC 0-0 vlhu=605) NEUTROPHILS RELATIVE PERCENT (BEAKER) (test 82 % ehbj=458) LYMPHOCYTES RELATIVE PERCENT (BEAKER) (test 11 % vndu=076) MONOCYTES RELATIVE PERCENT (BEAKER) (test 5 % qshk=595) EOSINOPHILS RELATIVE PERCENT (BEAKER) (test 1 % wgld=581) BASOPHILS RELATIVE PERCENT (BEAKER) (test 0 % xvmy=375) NEUTROPHILS ABSOLUTE COUNT (BEAKER) (test 15.57 K/ L 1.56-6.13 retb=575) LYMPHOCYTES ABSOLUTE COUNT (BEAKER) (test 2.05 K/ L 1.18-3.74 uvgy=822) MONOCYTES ABSOLUTE COUNT (BEAKER) (test 0.92 K/ L 0.24-0.36 yefg=214) EOSINOPHILS ABSOLUTE COUNT (BEAKER) (test 0.13 K/ L 0.04-0.36 wyhy=780) BASOPHILS ABSOLUTE COUNT (BEAKER) (test 0.01 K/ L 0.01-0.08 tznc=952) IMMATURE GRANULOCYTES-RELATIVE PERCENT (BEAKER) 1 % 0-1 (test yysi=5204) POCT-GLUCOSE [id number] 21:27:00 Test Item Value Reference Range Comments POC-GLUCOSE METER (BEAKER) 202 mg/dL 70-110 TESTED AT [address] (test rsaz=4302) [place] [address] POCT-GLUCOSE [id number] 13:34:00 Test Item Value Reference Range Comments POC-GLUCOSE METER (BEAKER) 94 mg/dL 70-110 TESTED AT [address] (test mccv=4196) [place] [address] POCT-GLUCOSE [id number] 08:43:00 Test Item Value Reference Range Comments POC-GLUCOSE METER (BEAKER) 118 mg/dL 70-110 TESTED AT [address] (test vwok=9328) [place] [address] URINALYSIS W/ REFLEX URINE [id number] 07:40:00 Test Item Value Reference Range Comments COLOR (BEAKER) (test llwk=864) Light Yellow CLARITY (BEAKER) (test lrvx=667) Hazy SPECIFIC GRAVITY UA (BEAKER) (test pynr=826) 1.019 1.001-1.035 PH UA (BEAKER) (test rsgn=742) 7.0 5.0-8.0 PROTEIN UA (BEAKER) (test mzgg=896) Negative Negative GLUCOSE UA (BEAKER) (test dugv=626) Negative Negative KETONES UA (BEAKER) (test bruo=423) Negative Negative BILIRUBIN UA (BEAKER) (test sxfb=618) Negative Negative BLOOD UA (BEAKER) (test goeh=663) Negative Negative NITRITE UA (BEAKER) (test znwg=612) Negative Negative LEUKOCYTE ESTERASE UA (BEAKER) (test jdht=469) Negative Negative UROBILINOGEN UA (BEAKER) (test bhyt=259) 0.2 mg/dL 0.2-1.0 RBC UA (BEAKER) (test qxrt=035) 2 /HPF WBC UA (BEAKER) (test dnvs=416) 0 /HPF MUCUS (BEAKER) (test banc=6572) Rare SQUAMOUS EPITHELIAL (BEAKER) (test vwjp=131) < /HPF SOURCE(BEAKER) (test rrkt=7779) BASIC METABOLIC [id number] 07:17:00 Test Item Value Reference Range Comments SODIUM (BEAKER) (test 136 meq/L 136-145 gmup=495) POTASSIUM (BEAKER) (test 4.1 meq/L 3.5-5.1 tjsa=331) CHLORIDE (BEAKER) (test 106 meq/L 98-107 zjug=951) CO2 (BEAKER) (test 23 meq/L 22-29 rvtv=219) BLOOD UREA NITROGEN 21 mg/dL 7-21 (BEAKER) (test fdpc=651) CREATININE (BEAKER) (test 0.76 mg/dL 0.57-1.25 bsib=286) GLUCOSE RANDOM (BEAKER) 115 mg/dL 70-105 (test bdvq=942) CALCIUM (BEAKER) (test 9.7 mg/dL 8.4-10.2 cmax=188) EGFR (BEAKER) (test mL/min/1.73 sq m INSUFFICIENT CLINICAL DATA ybml=6205) TO CALCULATE ESTIMATED GFR. CBC W/PLT COUNT & AUTO [id number] 06:15:00 Test Item Value Reference Range Comments WHITE BLOOD CELL COUNT (BEAKER) (test mnhv=999) 18.3 K/ L 3.5-10.5 RED BLOOD CELL COUNT (BEAKER) (test jvkc=894) 4.56 M/ L 3.93-5.22 HEMOGLOBIN (BEAKER) (test vzos=300) 11.3 GM/DL 11.2-15.7 HEMATOCRIT (BEAKER) (test czpy=431) 36.2 % 34.1-44.9 MEAN CORPUSCULAR VOLUME (BEAKER) (test ppcr=209) 79.4 fL 79.4-94.8 MEAN CORPUSCULAR HEMOGLOBIN (BEAKER) (test 24.8 pg 25.6-32.2 vnsm=635) MEAN CORPUSCULAR HEMOGLOBIN CONC (BEAKER) (test 31.2 GM/DL 32.2-35.5 kyec=838) RED CELL DISTRIBUTION WIDTH (BEAKER) (test 14.5 % 11.7-14.4 dakj=930) PLATELET COUNT (BEAKER) (test aluw=349) 529 K/CU MM 150-450 MEAN PLATELET VOLUME (BEAKER) (test yyma=561) 8.9 fL 9.4-12.3 NUCLEATED RED BLOOD CELLS (BEAKER) (test 0 /100 WBC 0-0 feic=669) NEUTROPHILS RELATIVE PERCENT (BEAKER) (test 85 % rodl=421) LYMPHOCYTES RELATIVE PERCENT (BEAKER) (test 9 % ofop=835) MONOCYTES RELATIVE PERCENT (BEAKER) (test 5 % lqqd=589) EOSINOPHILS RELATIVE PERCENT (BEAKER) (test 0 % rtsl=474) BASOPHILS RELATIVE PERCENT (BEAKER) (test 0 % upky=655) NEUTROPHILS ABSOLUTE COUNT (BEAKER) (test 15.60 K/ L 1.56-6.13 mwlg=008) LYMPHOCYTES ABSOLUTE COUNT (BEAKER) (test 1.67 K/ L 1.18-3.74 nxqe=366) MONOCYTES ABSOLUTE COUNT (BEAKER) (test 0.84 K/ L 0.24-0.36 hemj=011) EOSINOPHILS ABSOLUTE COUNT (BEAKER) (test 0.04 K/ L 0.04-0.36 ryjt=335) BASOPHILS ABSOLUTE COUNT (BEAKER) (test 0.03 K/ L 0.01-0.08 pitj=177) IMMATURE GRANULOCYTES-RELATIVE PERCENT (BEAKER) 1 % 0-1 (test guen=9882) POCT-GLUCOSE [id number] 21:08:00 Test Item Value Reference Range Comments POC-GLUCOSE METER (BEAKER) 175 mg/dL 70-110 TESTED AT [facility] [address] [facility] (test pyri=0482) [facility] [address] POCT-GLUCOSE [id number] 17:48:00 Test Item Value Reference Range Comments POC-GLUCOSE METER (BEAKER) 114 mg/dL 70-110 TESTED AT [address] (test pblr=4852) [facility] [address] POCT-GLUCOSE [id number] 12:27:00 Test Item Value Reference Range Comments POC-GLUCOSE METER (BEAKER) 119 mg/dL 70-110 TESTED AT [address] (test pdue=9796) [facility] [address] BASIC METABOLIC [id number] 08:12:00 Test Item Value Reference Range Comments SODIUM (BEAKER) (test 136 meq/L 136-145 lbwc=567) POTASSIUM (BEAKER) (test 4.1 meq/L 3.5-5.1 swvn=205) CHLORIDE (BEAKER) (test 105 meq/L 98-107 qtzn=793) CO2 (BEAKER) (test 22 meq/L 22-29 errx=660) BLOOD UREA NITROGEN 19 mg/dL 7-21 (BEAKER) (test tqsd=518) CREATININE (BEAKER) (test 0.65 mg/dL 0.57-1.25 ecxg=851) GLUCOSE RANDOM (BEAKER) 110 mg/dL 70-105 (test rynm=308) CALCIUM (BEAKER) (test 9.8 mg/dL 8.4-10.2 rdnt=459) EGFR (BEAKER) (test mL/min/1.73 sq m INSUFFICIENT CLINICAL DATA jcrp=2496) TO CALCULATE ESTIMATED GFR. CBC W/PLT COUNT & AUTO [id number] 07:21:00 Test Item Value Reference Range Comments WHITE BLOOD CELL COUNT (BEAKER) (test zzdc=321) 20.8 K/ L 3.5-10.5 RED BLOOD CELL COUNT (BEAKER) (test dpav=707) 4.46 M/ L 3.93-5.22 HEMOGLOBIN (BEAKER) (test hico=091) 11.2 GM/DL 11.2-15.7 HEMATOCRIT (BEAKER) (test huli=498) 35.1 % 34.1-44.9 MEAN CORPUSCULAR VOLUME (BEAKER) (test ywgx=952) 78.7 fL 79.4-94.8 MEAN CORPUSCULAR HEMOGLOBIN (BEAKER) (test 25.1 pg 25.6-32.2 mdno=011) MEAN CORPUSCULAR HEMOGLOBIN CONC (BEAKER) (test 31.9 GM/DL 32.2-35.5 kbhx=379) RED CELL DISTRIBUTION WIDTH (BEAKER) (test 14.2 % 11.7-14.4 wepn=730) PLATELET COUNT (BEAKER) (test fnqp=966) 549 K/CU MM 150-450 MEAN PLATELET VOLUME (BEAKER) (test twvw=891) 9.0 fL 9.4-12.3 NUCLEATED RED BLOOD CELLS (BEAKER) (test 0 /100 WBC 0-0 qzmo=259) NEUTROPHILS RELATIVE PERCENT (BEAKER) (test 86 % hmiv=435) LYMPHOCYTES RELATIVE PERCENT (BEAKER) (test 9 % agow=168) MONOCYTES RELATIVE PERCENT (BEAKER) (test 4 % djhk=394) EOSINOPHILS RELATIVE PERCENT (BEAKER) (test 0 % xbnl=252) BASOPHILS RELATIVE PERCENT (BEAKER) (test 0 % teqc=132) NEUTROPHILS ABSOLUTE COUNT (BEAKER) (test 17.91 K/ L 1.56-6.13 wate=038) LYMPHOCYTES ABSOLUTE COUNT (BEAKER) (test 1.79 K/ L 1.18-3.74 csyo=345) MONOCYTES ABSOLUTE COUNT (BEAKER) (test 0.81 K/ L 0.24-0.36 tesh=592) EOSINOPHILS ABSOLUTE COUNT (BEAKER) (test 0.03 K/ L 0.04-0.36 dobr=133) BASOPHILS ABSOLUTE COUNT (BEAKER) (test 0.04 K/ L 0.01-0.08 byzn=207) IMMATURE GRANULOCYTES-RELATIVE PERCENT (BEAKER) 1 % 0-1 (test xuzc=1105) POCT-GLUCOSE [id number] 06:08:00 Test Item Value Reference Range Comments POC-GLUCOSE METER (BEAKER) 113 mg/dL 70-110 TESTED AT [facility] [address] (test fomz=0882) [facility] [id number] POCT-GLUCOSE [id number] 18:58:00 Test Item Value Reference Range Comments POC-GLUCOSE METER (BEAKER) 117 mg/dL 70-110 TESTED AT [facility] [address] (test rivp=5083) [facility] [id number] CT, CHEST, WITH [id number] 15:20:00FINAL REPORT CT of the Chest, abdomen and [...] diverticulitis. The small bowel and appendix are normalin caliber. Uterus and ovaries are unremarkable. No mass, adenopathy or ascites is present in the abdomen or pelvis. Impression: 1. Right upper lobe mass suspicious for bronchogenic carcinoma.2. Nonspecific mediastinal lymph nodes.3. Diverticulosis without diverticulitis.4. No mass or adenopathy in the abdomen or pelvis. Signed: Lamonte Lorenzo MDReport Verified Date/Time: 02/28/2018 15:20: 36 Reading Location: [facility] C013Y CT Body Reading Room CT, [id number] 15:20: 00FINAL REPORT CT of the Chest, abdomen and pelvis dated 02/28/2018 Clinical information: Neoplasm: abdomen, other primary, staging Comment: Axial images of the chest, abdomen, and pelvis were obtained from thoracic inlet to the pubic symphysis with GI and intravenous contrast. This exam was performed according to our departmental dose-optimization program , which includes automated exposure control, adjustment of [...] diverticulitis. The small bowel and appendix are normalin caliber. Uterus and ovaries are unremarkable. No mass, adenopathy or ascites is present in the abdomen or pelvis. Impression: 1. Right upper lobe mass suspicious for bronchogenic carcinoma.2. Nonspecific mediastinal lymph nodes.3. Diverticulosis without diverticulitis.4. No mass or adenopathy in the abdomen or pelvis. Signed: Lamonte Lorenzo MDRort Verified Date/Time: 02/28/2018 15:20:36 Reading Location: [facility] B1 C013Y [address] Body Reading Room POCT-GLUCOSE [id number] 08:55:00 Test Item Value Reference Range Comments POC-GLUCOSE METER (NEENA) 125 mg/dL 70-110 TESTED AT [facility] [address] [facility] (test ytsy=6646) [facility] [address] MR, BRAIN, [id number] 07:59:00STEALTH protocolFINAL REPORT MRI Brain with and without contrast Clinical History: Lung cancer and cerebellar metastasis Technique: MRI of the brain utilizing axial T1, T2, FLAIR , GRE, DWI, sagittal T1; and postgadolinium axial, sagittal, and coronal T1- weighted images. Comparisons: None Findings: There is a heterogeneously enhancing mass in the midline superior cerebellum measuring approximately 2.1 cm AP x 2.3 cm TV x 2.2 cm CC. There is prominent surrounding T2 FLAIR signal hyperintense vasogenic edema in the bilateral cerebellum. Mass effect narrows the superior aspect of the fourth ventricle. There is mild dilatation of the lateral ventricles compatible with obstructive hydrocephalus.Additionally, the cerebellar tonsils are slightly low-lying in the foramen magnum. There is a 5 mm focus of FLAIR signal hyperintensity in the right anterior temporal lobe, adjacent to the temporal horn. However, there is no underlying enhancement. There is vascular curvilinear enhancement in the leftmid frontal lobe, with associated gradient echo signal dephasing. 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 There is no evidence of acute infarct or hemorrhage. There is mild generalized sulcal prominence. There is no midline shift. There are no extra- axial fluid collections. The major intracranial flow-voids appear patent. IMPRESSION: 2.3 cm midline superior cerebellar mass compatible with metastasis given the clinical history. Posterior fossa mass effect results in mild obstructive hydrocephalus and slight downward cerebellar ectopia. Nonspecific 5 mm nonenhancing focus in the right anterior temporal lobe. This could represent an area of gliosis or heterotopia, but given the history, a nonenhancing metastasis cannot beexcluded. Signed: Daysi Bullard MDReport Verified Date/Time : 02/28/2018 07:59:07 Reading Location: [facility] C0[facility] Neuro Reading Room POCT- GLUCOSE [id number] 06:39:00 Test Item Value Reference Range Comments POC-GLUCOSE METER (BEAKER) 150 mg/dL 70-110 TESTED AT [facility] [address] [facility] (test gjld=5582) [facility] [address] BASIC METABOLIC [id number] 05:51:00 Test Item Value Reference Range Comments SODIUM (BEAKER) (test 137 meq/L 136-145 coui=852) POTASSIUM (BEAKER) (test 3.8 meq/L 3.5-5.1 khcq=601) CHLORIDE (BEAKER) (test 104 meq/L 98-107 tunq=622) CO2 (BEAKER) (test 24 meq/L 22-29 uxdl=168) BLOOD UREA NITROGEN 13 mg/dL 7-21 (BEAKER) (test load=070) CREATININE (BEAKER) (test 0.72 mg/dL 0.57-1.25 lawd=556) GLUCOSE RANDOM (BEAKER) 131 mg/dL 70-105 (test ccja=271) CALCIUM (BEAKER) (test 9.9 mg/dL 8.4-10.2 fume=611) EGFR (BEAKER) (test mL/min/1.73 sq m INSUFFICIENT CLINICAL DATA jwcx=9297) TO CALCULATE ESTIMATED GFR. CBC W/PLT COUNT & AUTO [id number] 04:09:00 Test Item Value Reference Range Comments WHITE BLOOD CELL COUNT (BEAKER) (test lgbk=652) 18.5 K/ L 3.5-10.5 RED BLOOD CELL COUNT (BEAKER) (test itab=141) 4.50 M/ L 3.93-5.22 HEMOGLOBIN (BEAKER) (test sxln=852) 11.2 GM/DL 11.2-15.7 HEMATOCRIT (BEAKER) (test cftl=479) 35.7 % 34.1-44.9 MEAN CORPUSCULAR VOLUME (BEAKER) (test hasu=809) 79.3 fL 79.4-94.8 MEAN CORPUSCULAR HEMOGLOBIN (BEAKER) (test 24.9 pg 25.6-32.2 qsst=926) MEAN CORPUSCULAR HEMOGLOBIN CONC (BEAKER) (test 31.4 GM/DL 32.2-35.5 jzwp=701) RED CELL DISTRIBUTION WIDTH (BEAKER) (test 14.0 % 11.7-14.4 xxir=273) PLATELET COUNT (BEAKER) (test wsaa=565) 590 K/CU MM 150-450 MEAN PLATELET VOLUME (BEAKER) (test phbu=927) 9.2 fL 9.4-12.3 NUCLEATED RED BLOOD CELLS (BEAKER) (test 0 /100 WBC 0-0 mvah=700) NEUTROPHILS RELATIVE PERCENT (BEAKER) (test 90 % kiod=653) LYMPHOCYTES RELATIVE PERCENT (BEAKER) (test 7 % heta=936) MONOCYTES RELATIVE PERCENT (BEAKER) (test 2 % zfao=797) EOSINOPHILS RELATIVE PERCENT (BEAKER) (test 0 % cgln=731) BASOPHILS RELATIVE PERCENT (BEAKER) (test 0 % rgld=809) NEUTROPHILS ABSOLUTE COUNT (BEAKER) (test 16.64 K/ L 1.56-6.13 wjsm=086) LYMPHOCYTES ABSOLUTE COUNT (BEAKER) (test 1.26 K/ L 1.18-3.74 mztc=169) MONOCYTES ABSOLUTE COUNT (BEAKER) (test 0.44 K/ L 0.24-0.36 kols=111) EOSINOPHILS ABSOLUTE COUNT (BEAKER) (test 0.01 K/ L 0.04-0.36 qfem=691) BASOPHILS ABSOLUTE COUNT (BEAKER) (test 0.03 K/ L 0.01-0.08 wlmy=423) IMMATURE GRANULOCYTES-RELATIVE PERCENT (BEAKER) 1 % 0-1 (test ksks=9128) POCT-GLUCOSE [id number] 00:17:00 Test Item Value Reference Range Comments POC-GLUCOSE METER (BEAKER) 122 mg/dL 70-110 TESTED AT [address] (test msua=5943) [place] [address] POCT-GLUCOSE [id number] 18:35:00 Test Item Value Reference Range Comments POC-GLUCOSE METER (BEAKER) 134 mg/dL 70-110 TESTED AT [address] (test zutn=9472) [place] [address] POCT-GLUCOSE [id number] 12:10:00 Test Item Value Reference Range Comments POC-GLUCOSE METER (BEAKER) 146 mg/dL 70-110 TESTED AT [address] (test wjna=2344) [place] [address] [id number] 07:56:00 Test Item Value Reference Range Comments PROCALCITONIN (BEAKER) (test bsai=6829) < ng/mL <0.05 SEPSIS RISK (ng/mL)Low: 0.05-0.50Intermediate: 0.51-2.00High: & gt;=2.01LACTATE DEHYDROGENASE (LDH)2018-02-27 06:52:00 Test Item Value Reference Range Comments LACTATE DEHYDROGENASE (BEAKER) (test rlao=040) 146 U/L 125-220 C-REACTIVE [id number] 06:52:00 Test Item Value Reference Range Comments C-REACTIVE PROTEIN (BEAKER) (test vsgh=173) 8.22 mg/dL 0.00-0.50 LACTIC ACID, ARTERIAL, WHOLE [id number] 06:01:00 Test Item Value Reference Range Comments LACTATE BLOOD ARTERIAL (2) (BEAKER) (test 1.0 mmol/L 0.5-2.2 arhq=5305) BASIC METABOLIC [id number] 05:52:00 Test Item Value Reference Range Comments SODIUM (BEAKER) (test 137 meq/L 136-145 bfnp=863) POTASSIUM (BEAKER) (test 4.2 meq/L 3.5-5.1 Specimen slightly zdfo=895) hemolyzed CHLORIDE (BEAKER) (test 105 meq/L 98-107 egkn=845) CO2 (BEAKER) (test 25 meq/L 22-29 hjha=764) BLOOD UREA NITROGEN 13 mg/dL 7-21 (BEAKER) (test xtyo=255) CREATININE (BEAKER) (test 0.74 mg/dL 0.57-1.25 Specimen slightly esnw=787) hemolyzed GLUCOSE RANDOM (BEAKER) 93 mg/dL 70-105 (test jnlh=206) CALCIUM (BEAKER) (test 9.4 mg/dL 8.4-10.2 jdkp=676) EGFR (BEAKER) (test mL/min/1.73 sq m INSUFFICIENT CLINICAL DATA hkex=5970) TO CALCULATE ESTIMATED GFR. TROPONIN [id number] 05:48:00 Test Item Value Reference Range Comments TROPONIN I (BEAKER) (test zyda=461) < ng/mL 0.00-0.03 [id number] 05:43:00 Test Item Value Reference Range Comments MAGNESIUM (BEAKER) (test 2.1 mg/dL 1.6-2.6 Specimen slightly hemolyzed uupd=670) [id number] 05:43:00 Test Item Value Reference Range Comments PHOSPHORUS (BEAKER) (test 4.1 mg/dL 2.3-4.7 Specimen slightly hemolyzed dmge=835) CBC W/PLT COUNT & AUTO [id number] 05:34:00 Test Item Value Reference Range Comments WHITE BLOOD CELL COUNT (BEAKER) (test dumt=324) 13.1 K/ L 3.5-10.5 RED BLOOD CELL COUNT (BEAKER) (test nrjn=042) 4.42 M/ L 3.93-5.22 HEMOGLOBIN (BEAKER) (test tvpt=652) 11.2 GM/DL 11.2-15.7 HEMATOCRIT (BEAKER) (test joia=152) 35.7 % 34.1-44.9 MEAN CORPUSCULAR VOLUME (BEAKER) (test gouh=484) 80.8 fL 79.4-94.8 MEAN CORPUSCULAR HEMOGLOBIN (BEAKER) (test 25.3 pg 25.6-32.2 jbhu=112) MEAN CORPUSCULAR HEMOGLOBIN CONC (BEAKER) (test 31.4 GM/DL 32.2-35.5 vwre=790) RED CELL DISTRIBUTION WIDTH (BEAKER) (test 14.2 % 11.7-14.4 giev=855) PLATELET COUNT (BEAKER) (test twpl=296) 490 K/CU MM 150-450 MEAN PLATELET VOLUME (BEAKER) (test nxdh=954) 9.0 fL 9.4-12.3 NUCLEATED RED BLOOD CELLS (BEAKER) (test 0 /100 WBC 0-0 tbuv=019) NEUTROPHILS RELATIVE PERCENT (BEAKER) (test 63 % puot=525) LYMPHOCYTES RELATIVE PERCENT (BEAKER) (test 25 % otjt=678) MONOCYTES RELATIVE PERCENT (BEAKER) (test 8 % oang=863) EOSINOPHILS RELATIVE PERCENT (BEAKER) (test 4 % zjot=953) BASOPHILS RELATIVE PERCENT (BEAKER) (test 1 % zbuy=273) NEUTROPHILS ABSOLUTE COUNT (BEAKER) (test 8.20 K/ L 1.56-6.13 uncp=551) LYMPHOCYTES ABSOLUTE COUNT (BEAKER) (test 3.22 K/ L 1.18-3.74 irea=603) MONOCYTES ABSOLUTE COUNT (BEAKER) (test 0.99 K/ L 0.24-0.36 fowh=762) EOSINOPHILS ABSOLUTE COUNT (BEAKER) (test 0.57 K/ L 0.04-0.36 wdvn=855) BASOPHILS ABSOLUTE COUNT (BEAKER) (test 0.08 K/ L 0.01-0.08 gxuw=022) IMMATURE GRANULOCYTES-RELATIVE PERCENT (BEAKER) 1 % 0-1 (test cadv=5866) POCT-GLUCOSE [id number] 05:32:00 Test Item Value Reference Range Comments POC-GLUCOSE METER (BEAKER) 118 mg/dL 70-110 TESTED AT [facility] [address] [facility] (test wbuh=3424) [facility] [address] [id number] 05:20:00 Test Item Value Reference Range Comments PROTIME (BEAKER) (test mxes=300) 13.7 seconds 11.7-14.7 INR (BEAKER) (test kfug=700) 1.1 <=5.9 PARTIAL THROMBOPLASTIN TIME (BEAKER) (test 26.4 seconds 22.5-36.0 wqjw=775) RECOMMENDED COUMADIN/WARFARIN INR THERAPY RANGESSTANDARD DOSE: 2.0 - 3.0 Includes: PROPHYLAXIS forvenous thrombosis, systemic embolization; TREATMENT for venous thrombosis and/or pulmonary embolus.HIGH RISK: Target INR is 2.5-3.5 for patients with mechanical heart valves.PROTHROMBIN [id number] 05:19: 00 Test Item Value Reference Range Comments PROTIME (BEAKER) (test pbzc=432) 13.7 seconds 11.7-14.7 INR (BEAKER) (test nsgg=474) 1.1 <=5.9 RECOMMENDED COUMADIN/WARFARIN INR THERAPY RANGESSTANDARD DOSE: 2.0 - 3.0 Includes: PROPHYLAXIS forvenous thrombosis, systemic embolization; TREATMENT for venous thrombosis and/or pulmonary embolus.HIGH RISK: Target INR is 2.5-3.5 for patients with mechanical heart valves.
[2018-07-22 19:21] LABS: Urine Blood 1+ (NEG); Urine Glucose NEGATIVE (NEG); Urine Protein NEGATIVE (NEG); Urine Specific Gravity <1.005 (1.005-1.030)
[2018-07-22 19:53] LABS: Potassium 3.7 mmol/L (3.5-5.1)
--- NOTE | 2018-07-22 20:33 | RAD REPORT ---
EXAM DESCRIPTION: CT - Head Brain W/Wo Con - 07/22/2018 8:21 pm CLINICAL HISTORY: Headache, history of cerebellar tumor removal March 2018 COMPARISON: CT head January 2018, MRI May 2018 TECHNIQUE: Axial 5 mm thick images of the head were obtained prior to and following non-ionic IV con trast. All CT scans are performed using dose optimization technique as appropriate and may include automated exposure control or mA/KV adjustment according to patient size. FINDINGS: No intracranial hemorrhage, mass, edema or shift of mid-line structures. No acute infarcti on changes seen. Ventricles are normal. Physiologic calcifications are present. Occipital midline cr aniotomy defect noted. Postsurgical changes are present in the midline posterior fossa. There is an a pproximately 5 centimeter x 2.5 centimeter low-density or fluid collection along the superficial christa in of the surgical defect. This could be a postoperative chronic seroma. This has an attenuation valu e of approximately 11-14 Hounsfield units compared to the CSF value of 2 Hounsfield units. This is pr obably not communicating with the CSF spaces. Post-contrast imaging shows normal enhancement of the arterial tree. Venous sinuses are patent. No evidence for residual or recurrent mass in the posterior fossa. Mastoid air cells and visualized portions of the paranasal sinuses are clear. No acute bony findings. IMPRESSION: No hemorrhage, recurrent mass or other acute intracranial finding. Postop changes to the midline occipital bone and posterior fossa. A 5 x 2.5 cm fluid collection poste rior to the occipital bone is probably a postoperative seroma. Communication to the CSF space doubtfu l but not entirely excluded. The prior CT radiation planning study and postsurgical MRI study do not have a protocol that allows o ptimal comparison to the current examination regarding the superficial occipital collection.
--- NOTE | 2018-07-22 20:55 | EDPHYS ---
Physician Documentation [facility] Name: Albania Alfaro Age: 58 yrs Sex: Female : 1960 Arrival Date: 07/22/2018 Time: 18:50 Bed 24 Private MD: ED Physician Sheldon Tran HPI: 07/22 19:27 This 58 yrs old Female presents to ER via Ambulatory with complaints of rn Headache. 19:27 The patient complains of pain to the forehead and left side of forehead. The patient rn describes the headache as aching, throbbing. 19:27 Onset: The symptoms/episode began/occurred 4 day(s) ago. Associated signs and symptoms: rn Pertinent positives: This patient does not have any pertinent positive signs or symptoms associated with a headache. Pertinent negatives: altered mental status, fever, neck stiffness, vision changes, vision loss. Severity of symptoms: At its worst the pain was mild, in the emergency department the pain has improved. The symptoms are alleviated by nothing. the symptoms are aggravated by nothing. The patient has experienced similar episodes in the past. The patient has not recently seen a physician. Reports headache, throbbing, along left forehead hairline, no trauma, + hx of metastatic brain tumor, in cerebellum, removed 4 months ago, called her cancer doctor, told to come to ER for imaging. Pain is intermittent, no new focal neurological problems or complaints. . Historical: - Allergies: 19:02 Erythromycin; ak1 - PMHx: 19:02 Diverticulitis; Vertigo; ak1 - PSHx: 19:02 Cholecystectomy; brain sx 03/2018; ak1 - Immunization history:: Adult Immunizations unknown. - Social history:: Smoking status: Patient/guardian denies using tobacco. - Ebola Screening: : No symptoms or risks identified at this time. - Family history:: not pertinent. - Hospitalizations: : No recent hospitalization is reported. ROS: 19:27 Constitutional: Negative for fever, chills, and weight loss, Eyes: Negative for injury, rn pain, redness, and discharge, Neck: Negative for injury, pain, and swelling, Cardiovascular: Negative for chest pain, palpitations, and edema, Respiratory: Negative for shortness of breath, cough, wheezing, and pleuritic chest pain, Abdomen/GI: Negative for abdominal pain, nausea, vomiting, diarrhea, and constipation, MS/Extremity: Negative for injury and deformity, Skin: Negative for injury, rash, and discoloration, Neuro: Negative for weakness, numbness, tingling, and seizure. Exam: 19:27 Constitutional: This is a well developed, well nourished patient who is awake, alert, rn and in no acute distress. Head/Face: Normocephalic, atraumatic. Eyes: Pupils equal round and reactive to light, extra-ocular motions intact. Lids and lashes normal. Conjunctiva and sclera are non-icteric and not injected. Cornea within normal limits. Periorbital areas with no swelling, redness, or edema. ENT: MMM Neck: Trachea midline, no thyromegaly or masses palpated, and no cervical lymphadenopathy. Supple, full range of motion without nuchal rigidity, or vertebral point tenderness. No Meningismus. Skin: Warm, dry MS/ Extremity: Pulses equal, no cyanosis. Neurovascular intact. Full, normal range of motion. Equal circumference. Neuro: Awake and alert, GCS 15, oriented to person, place, time, and situation. Cranial nerves II-XII grossly intact. Motor strength 5/5 in all extremities. Sensory grossly intact. Vital Signs: 19:02 BP 128 / 92; Pulse 86; Resp 18; Temp 97.8; Pulse Ox 98% on R/A; Weight 76.66 kg (R); ak1 Height 5 ft. 4 in. (162.56 cm) (R); Pain 2/10; 20:10 BP 129 / 75; Pulse 73; Resp 18; Pulse Ox 95% ; ea 21:00 BP 123 / 67; Pulse 70; Resp 18; Pulse Ox 97% on R/A; ea 19:02 Body Mass Index 29.01 (76.66 kg, 162.56 cm) ak1 [employer] Coma Score: 20:51 Eye Response: spontaneous(4). Verbal Response: oriented(5). Motor Response: obeys rn commands(6). Total: 15. MDM: 19:03 Patient medically screened. rn 20:51 Differential diagnosis: headache, nerve sensitivity, radiculopathy. Data reviewed: rn vital signs, nurses notes, radiologic studies, CT scan, and as a result, I will discharge patient. Counseling: I had a detailed discussion with the patient and/or guardian regarding: the historical points, exam findings, and any diagnostic results supporting the discharge/admit diagnosis, radiology results, the need for outpatient follow up, to return to the emergency department if symptoms worsen or persist or if there are any questions or concerns that arise at home. Response to treatment: the patient's condition has returned to base line. Special discussion: I discussed with the patient/guardian in detail that at this point there is no indication for admission to the hospital. It is understood, however, that if the symptoms persist or worsen the patient needs to return immediately for re-evaluation. 07/22 19:15 Order name: BMP; Complete Time: 19:56 rn 07/22 19:15 Order name: Urine Dipstick--Ancillary (enter results); Complete Time: 19:56 ar5 07/22 19:15 Order name: IV Start; Complete Time: 19:35 rn 07/22 19:15 Order name: CT Head Brain w/wo Con; Complete Time: 20:51 rn Administered Medications: No medications were administered Disposition: 07/22/18 20:54 Discharged to Home. Impression: Headache. - Condition is Stable. - Discharge Instructions: General Headache Without Cause. - Prescriptions for Medrol (Nagi) 4 mg Oral Tablets, Dose Pack - take 1 tablet by ORAL route as directed - follow package instructions; 1 packet. - Medication Reconciliation Form, Thank You Letter, Antibiotic Education, Prescription Opioid Use form. - Follow up: Private Physician; When: As needed; Reason: Recheck today's complaints, Re-evaluation by your physician. - Problem is new. - Symptoms have improved. Signatures: Dispatcher [employer] EDMS Sheldon Tran MD MD rn Krenek, Amber RN RN ak1 Saira Alves RN RN ea Corrections: (The following items were deleted from the chart) 21:06 20:54 07/22/2018 20:54 Discharged to Home. Impression: Headache. Condition is Stable. ea Forms are Medication Reconciliation Form, Thank You Letter, Antibiotic Education, Prescription Opioid Use. Follow up: Private Physician; When: As needed; Reason: Recheck today's complaints, Re-evaluation by your physician. Problem is new. Symptoms have improved. rn
--- NOTE | 2018-07-22 20:55 | ER ---
Nurse's Notes [facility] Name: Albania Alfaro Age: 58 yrs Sex: Female : 1960 Arrival Date: 07/22/2018 Time: 18:50 Bed 24 Private MD: Diagnosis: Headache Presentation: 07/22 18:59 Presenting complaint: Patient states: left cheek and hair line head pain since Saturday. ak1 pt had brain tumor removed 03/2018. pt with stage 4 lung cancer as well. Transition of care: patient was not received from another setting of care. Onset of symptoms is unknown. Risk Assessment: Do you want to hurt yourself or someone else? Patient reports no desire to harm self or others. Initial Sepsis Screen: Does the patient meet any 2 criteria? No. Patient's initial sepsis screen is negative. Does the patient have a suspected source of infection? No. Patient's initial sepsis screen is negative. Care prior to arrival: None. 18:59 Method Of Arrival: Ambulatory ak1 18:59 Acuity: AILYN 3 ak1 Triage Assessment: 19:02 Headache History: The patient has had previous headaches and this one is different than ak1 previous episodes. 20:01 General: Appears. ea Historical: - Allergies: 19:02 Erythromycin; ak1 - PMHx: 19:02 Diverticulitis; Vertigo; ak1 - PSHx: 19:02 Cholecystectomy; brain sx 03/2018; ak1 - Immunization history:: Adult Immunizations unknown. - Social history:: Smoking status: Patient/guardian denies using tobacco. - Ebola Screening: : No symptoms or risks identified at this time. - Family history:: not pertinent. - Hospitalizations: : No recent hospitalization is reported. Screenin:03 Abuse screen: Denies threats or abuse. Denies injuries from another. Nutritional ak1 screening: No deficits noted. Tuberculosis screening: No symptoms or risk factors identified. Fall Risk None identified. Assessment: 20:09 General: Appears in no apparent distress. Behavior is calm, cooperative, appropriate ea for age. Pain: Complains of pain in left side of forehead and forehead. Neuro: Level of Consciousness is awake, alert, obeys commands, Oriented to person, place, time, situation. Neuro: Reports headache in left frontal area, forehead. Cardiovascular: Patient's skin is warm and dry. Respiratory: Airway is patent Respiratory effort is even, unlabored, Respiratory pattern is regular, symmetrical. GI: No signs and/or symptoms were reported involving the gastrointestinal system. Derm: Skin is pink, warm \T\ dry. Musculoskeletal: Circulation, motion, and sensation intact. 21:03 Reassessment: Patient and/or family updated on plan of care and expected duration. Pain ea level reassessed. Patient is alert, oriented x 3, equal unlabored respirations, skin warm/dry/pink. Discharge instruction given to patient, verbalized the understanding of instruction. Pt discharged home ambulatory, tolerating well. Patient states feeling better. Vital Signs: 19:02 BP 128 / 92; Pulse 86; Resp 18; Temp 97.8; Pulse Ox 98% on R/A; Weight 76.66 kg (R); ak1 Height 5 ft. 4 in. (162.56 cm) (R); Pain 2/10; 20:10 BP 129 / 75; Pulse 73; Resp 18; Pulse Ox 95% ; ea 21:00 BP 123 / 67; Pulse 70; Resp 18; Pulse Ox 97% on R/A; ea 19:02 Body Mass Index 29.01 (76.66 kg, 162.56 cm) ak1 [facility] Coma Score: 20:51 Eye Response: spontaneous(4). Verbal Response: oriented(5). Motor Response: obeys rn commands(6). Total: 15. ED Course: 18:50 Patient arrived in ED. as 19:01 Triage completed. ak1 19:02 Arm band placed on Patient placed in an exam room, on a stretcher, Patient notified of ak1 wait time. 19:03 Sheldon Tran MD is Attending Physician. rn 19:05 Urine collected: clean catch specimen, clear, karla colored. jp3 19:17 Urine Dipstick--Ancillary (enter results) Sent. jp3 19:23 Saira Alves, RN is Primary Nurse. ea 19:29 Radiology exam delayed due to lab results not completed at this time. (BUN/Creatinine). vm2 19:30 Initial lab(s) drawn, by me, sent to lab. Inserted saline lock: 22 gauge in right jp3 antecubital area, using aseptic technique. Blood collected. 19:35 BMP Sent. jp3 20:11 Patient has correct armband on for positive identification. Bed in low position. Call ea light in reach. Side rails up X 1. 20:21 CT Head Brain w/wo Con In Process Unspecified. EDMS 20:54 No provider procedures requiring assistance completed. ea 21:00 IV discontinued, intact, bleeding controlled, No redness/swelling at site. Pressure ea dressing applied. Administered Medications: No medications were administered Outcome: 20:54 Discharge ordered by . rn 21:04 Discharged to home ambulatory. ea 21:04 Condition: improved 21:04 Discharge instructions given to patient, Instructed on discharge instructions, follow up and referral plans. medication usage, Demonstrated understanding of instructions, follow-up care, medications, Prescriptions given X 1. 21:06 Patient left the ED. ea Signatures: Dispatcher [employer] EDMS Azra Jenkins Roman, MD MD rn Krenek, Amber RN RN Cathryn Whatley Elena, RN RN Xavier Brewster jp3
[2018-07-22 21:32] VITALS: TEMP 97.8
[2018-07-22 21:34] VITALS: BP 123/67; O2SAT 97
== END 2018-07-22 21:06 | disposition home or self-care (01) ==
LOC: ER 18:48
DX: R51 Headache (principal); Z85.841 Personal history of malignant neoplasm of brain; Z88.3 Allergy status to other anti-infective agents
CPT/HCPCS: 36415; 80048; 81003; 99284

== ENCOUNTER 2018-07-27 08:28 | Emergency (ER) | payer OTHER ==
--- OUTSIDE RECORDS SUMMARY | 2018-07-27 08:31 | XMS REPORT | Clinical Summary ---
:1960 Author Organization [facility] Address [address] [place] [id number] Care Team Providers Name Role Phone Unavailable [...] Ex-smoker; Linda Varner MD 02/27/2018 Travel after 07/26/2017 Family History Medical History Relation Name Comments [...] Taken Blood Pressure 137/77 03/10/2018 11:30 AM STAFF MIDWIFE/APPRENTICESHIP DIRECTOR Pulse 69 03/10/2018 11:30 AM STAFF MIDWIFE/APPRENTICESHIP DIRECTOR Temperature 35.7 C (96.3 F) 03/10/2018 11:30 AM STAFF MIDWIFE/APPRENTICESHIP DIRECTOR Respiratory Rate 18 03/10/2018 11:30 AM STAFF MIDWIFE/APPRENTICESHIP DIRECTOR Oxygen Saturation 96% 03/10/2018 11:30 AM STAFF MIDWIFE/APPRENTICESHIP DIRECTOR Inhaled Oxygen Concentration - - Weight 74.1 kg (163 lb 5.8 oz) 03/08/2018 5:00 AM STAFF MIDWIFE/APPRENTICESHIP DIRECTOR Height 162.6 cm (5' 4.02") 02/27/2018 3:20 AM STAFF MIDWIFE/APPRENTICESHIP DIRECTOR Body Mass Index 28.03 03/08/2018 5:00 AM STAFF MIDWIFE/APPRENTICESHIP DIRECTOR Plan of Treatment Not on file Implants Implanted Type Area Floor Supervisor Device Shelf Model / Identifier Expiration Serial / Lot Date [facility] Full Strlprep 10ml [id number] - Sna Cement/F N/A: ESPINO:BIOSCI 07/25/2019 [id number] / Implanted: Qty: 1 on 03/06/2018 by Robert Hightower MD iller/Ad Head NA / hesive [id number] [employer] Duras[employer] Spine 5ml [id number] - [id number] Cement/F N/A: [employer] 07/30/2019 [id number] / Implanted: Qty: 1 on 03/06/2018 by Robert Hightower MD iller/Ad Head / hesive [id number] Plt Str Lp-Neuro 2h 12mm Ti Ns 421.502 - Sna Fracture N/A: SYNTHES:SYNTHES 421.502 / Implanted: Qty: 2 on 03/06/2018 by Robert Hightower MD /Fixatio Head [facility] NA / n NA Plt Str Lp-Neuro 4h 12mm Ti Ns 421.504 - Sna Fracture N/A: SYNTHES:SYNTHES 421.504 / Implanted: Qty: 1 on 03/06/2018 by Robert Hightower MD /Fixatio Head [place] NA / n NA Scr Sd Mtrxneu 4mm Ti Ns .104.01 - Sna Fracture N/A: SYNTHES:SYNTHES 104.01 / Implanted: Qty: 8 on 03/06/2018 by Robert Hightower MD /Fixatio Head [facility] NA / n NA Graft Suturable Bp 4x5cm [id number] - [id number] Graft/Pa N/A: [employer] 03/31/2022 [id number] / Implanted: Qty: 1 on 03/06/2018 by Robert Hightower MD [facility] Head [id number] / [id number] Procedures Procedure Name Priority Date/Time Associated Comments Diagnosis INTRAOPERATIVE PATH 03/21/2018 3:20 REPORT - SCAN PM STAFF MIDWIFE/APPRENTICESHIP DIRECTOR RHYTHM STRIP - SCAN 03/17/2018 12:30 PM STAFF MIDWIFE/APPRENTICESHIP DIRECTOR POCT-GLUCOSE METER Routine 03/10/2018 11:26 Results for this AM STAFF MIDWIFE/APPRENTICESHIP DIRECTOR procedure are in the results section. POCT-GLUCOSE METER Routine 03/10/2018 7:12 Results for this AM STAFF MIDWIFE/APPRENTICESHIP DIRECTOR procedure are in the results section. CBC W/PLT COUNT & AUTO Routine 03/10/2018 4:52 Results for this DIFFERENTIAL AM STAFF MIDWIFE/APPRENTICESHIP DIRECTOR procedure are in the results section. CBC W/PLT COUNT & AUTO Routine 03/10/2018 4:52 Results for this DIFFERENTIAL AM STAFF MIDWIFE/APPRENTICESHIP DIRECTOR procedure are in the results section. BASIC METABOLIC PANEL Routine 03/10/2018 4:52 Results for this (7) AM STAFF MIDWIFE/APPRENTICESHIP DIRECTOR procedure are in the results section. POCT-GLUCOSE METER Routine 03/09/2018 9:19 Results for this PM STAFF MIDWIFE/APPRENTICESHIP DIRECTOR procedure are in the results section. POCT-GLUCOSE METER Routine 03/09/2018 6:16 Results for this PM STAFF MIDWIFE/APPRENTICESHIP DIRECTOR procedure are in the results section. POCT-GLUCOSE METER Routine 03/09/2018 11:50 Results for this AM STAFF MIDWIFE/APPRENTICESHIP DIRECTOR procedure are in the results section. POCT-GLUCOSE METER Routine 03/09/2018 8:18 Results for this AM STAFF MIDWIFE/APPRENTICESHIP DIRECTOR procedure are in the results section. CBC W/PLT COUNT & AUTO Routine 03/09/2018 5:44 Results for this DIFFERENTIAL AM STAFF MIDWIFE/APPRENTICESHIP DIRECTOR procedure are in the results section. CBC W/PLT COUNT & AUTO Routine 03/09/2018 5:44 Results for this DIFFERENTIAL AM STAFF MIDWIFE/APPRENTICESHIP DIRECTOR procedure are in the results section. BASIC METABOLIC PANEL Routine 03/09/2018 5:44 Results for this (7) AM STAFF MIDWIFE/APPRENTICESHIP DIRECTOR procedure are in the results section. POCT-GLUCOSE METER Routine 03/08/2018 9:14 Results for this PM STAFF MIDWIFE/APPRENTICESHIP DIRECTOR procedure are in the results section. POCT-GLUCOSE METER Routine 03/08/2018 6:00 Results for this PM STAFF MIDWIFE/APPRENTICESHIP DIRECTOR procedure are in the results section. POCT-GLUCOSE METER Routine 03/08/2018 1:31 Results for this PM STAFF MIDWIFE/APPRENTICESHIP DIRECTOR procedure are in the results section. MR BRAIN WITHOUT & STAT 03/08/2018 11:47 Results for this WITH IV CONTRAST AM STAFF MIDWIFE/APPRENTICESHIP DIRECTOR procedure are in the results section. (CELLAVISION MANUAL Routine 03/08/2018 3:33 Results for this DIFF) AM STAFF MIDWIFE/APPRENTICESHIP DIRECTOR procedure are in the results section. CBC W/PLT COUNT & AUTO Routine 03/08/2018 3:33 Results for this DIFFERENTIAL AM STAFF MIDWIFE/APPRENTICESHIP DIRECTOR procedure are in the results section. CBC W/PLT COUNT & AUTO Routine 03/08/2018 3:33 Results for this DIFFERENTIAL AM STAFF MIDWIFE/APPRENTICESHIP DIRECTOR procedure are in the results section. BASIC METABOLIC PANEL Routine 03/08/2018 3:33 Results for this (7) AM STAFF MIDWIFE/APPRENTICESHIP DIRECTOR procedure are in the results section. POCT-GLUCOSE METER Routine 03/07/2018 11:20 Results for this PM STAFF MIDWIFE/APPRENTICESHIP DIRECTOR procedure are in the results section. POCT-GLUCOSE METER Routine 03/07/2018 10:00 Results for this PM STAFF MIDWIFE/APPRENTICESHIP DIRECTOR procedure are in the results section. POCT-GLUCOSE METER Routine 03/07/2018 6:24 Results for this PM STAFF MIDWIFE/APPRENTICESHIP DIRECTOR procedure are in the results section. POCT-GLUCOSE METER Routine 03/07/2018 12:17 Results for this PM STAFF MIDWIFE/APPRENTICESHIP DIRECTOR procedure are in the results section. POCT-GLUCOSE METER Routine 03/07/2018 8:34 Results for this AM STAFF MIDWIFE/APPRENTICESHIP DIRECTOR procedure are in the results section. (CELLAVISION MANUAL Routine 03/07/2018 3:59 Results for this DIFF) AM STAFF MIDWIFE/APPRENTICESHIP DIRECTOR procedure are in the results section. CBC W/PLT COUNT & AUTO Routine 03/07/2018 3:59 Results for this DIFFERENTIAL AM STAFF MIDWIFE/APPRENTICESHIP DIRECTOR procedure are in the results section. PHOSPHORUS Routine 03/07/2018 3:59 Results for this AM STAFF MIDWIFE/APPRENTICESHIP DIRECTOR procedure are in the results section. MAGNESIUM Routine 03/07/2018 3:59 Results for this AM STAFF MIDWIFE/APPRENTICESHIP DIRECTOR procedure are in the results section. CBC W/PLT COUNT & AUTO Routine 03/07/2018 3:59 Results for this DIFFERENTIAL AM STAFF MIDWIFE/APPRENTICESHIP DIRECTOR procedure are in the results section. BASIC METABOLIC PANEL Routine 03/07/2018 3:59 Results for this (7) AM STAFF MIDWIFE/APPRENTICESHIP DIRECTOR procedure are in the results section. POCT-GLUCOSE METER Routine 03/06/2018 10:25 Results for this PM STAFF MIDWIFE/APPRENTICESHIP DIRECTOR procedure are in the results section. TISSUE EXAM AP Routine 03/06/2018 6:28 Results for this PM STAFF MIDWIFE/APPRENTICESHIP DIRECTOR procedure are in the results section. POCT-GLUCOSE METER Routine 03/06/2018 12:27 Results for this PM STAFF MIDWIFE/APPRENTICESHIP DIRECTOR procedure are in the results section. 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 POCT-GLUCOSE METER Routine 03/06/2018 5:15 AM Results for this STAFF MIDWIFE/APPRENTICESHIP DIRECTOR procedure are in the results section. CBC W/PLT COUNT & AUTO Routine 03/06/2018 4:37 AM Results for this DIFFERENTIAL STAFF MIDWIFE/APPRENTICESHIP DIRECTOR procedure are in the results section. CBC W/PLT COUNT & AUTO Routine 03/06/2018 4:37 AM Results for this DIFFERENTIAL STAFF MIDWIFE/APPRENTICESHIP DIRECTOR procedure are in the results section. BASIC METABOLIC PANEL (7) Routine 03/06/2018 4:37 AM Results for this STAFF MIDWIFE/APPRENTICESHIP DIRECTOR procedure are in the results section. PT/APTT Routine 03/06/2018 4:37 AM Results for this STAFF MIDWIFE/APPRENTICESHIP DIRECTOR procedure are in the results section. POCT-GLUCOSE METER Routine 03/05/2018 10:05 PM Results for this STAFF MIDWIFE/APPRENTICESHIP DIRECTOR procedure are in the results section. TRANSFUSION SERVICE REPORT 03/05/2018 6:01 PM - SCAN STAFF MIDWIFE/APPRENTICESHIP DIRECTOR POCT-GLUCOSE METER Routine 03/05/2018 4:42 PM Results for this STAFF MIDWIFE/APPRENTICESHIP DIRECTOR procedure are in the results section. POCT-GLUCOSE METER Routine 03/05/2018 12:01 PM Results for this STAFF MIDWIFE/APPRENTICESHIP DIRECTOR procedure are in the results section. POCT-GLUCOSE METER Routine 03/05/2018 7:18 AM Results for this STAFF MIDWIFE/APPRENTICESHIP DIRECTOR procedure are in the results section. CBC W/PLT COUNT & AUTO Routine 03/05/2018 4:45 AM Results for this DIFFERENTIAL STAFF MIDWIFE/APPRENTICESHIP DIRECTOR procedure are in the results section. CBC W/PLT COUNT & AUTO Routine 03/05/2018 4:45 AM Results for this DIFFERENTIAL STAFF MIDWIFE/APPRENTICESHIP DIRECTOR procedure are in the results section. BASIC METABOLIC PANEL (7) Routine 03/05/2018 4:45 AM Results for this STAFF MIDWIFE/APPRENTICESHIP DIRECTOR procedure are in the results section. POCT-GLUCOSE METER Routine 03/04/2018 8:24 PM Results for this STAFF MIDWIFE/APPRENTICESHIP DIRECTOR procedure are in the results section. POCT-GLUCOSE METER Routine 03/04/2018 5:38 PM Results for this STAFF MIDWIFE/APPRENTICESHIP DIRECTOR procedure are in the results section. POCT-GLUCOSE METER Routine 03/04/2018 12:03 PM Results for this STAFF MIDWIFE/APPRENTICESHIP DIRECTOR procedure are in the results section. REPORT OF PROCEDURE - 03/04/2018 11:06 AM ENDOSCOPY URL STAFF MIDWIFE/APPRENTICESHIP DIRECTOR EBUS FNA REQUEST Routine 03/04/2018 10:23 AM Results for this STAFF MIDWIFE/APPRENTICESHIP DIRECTOR procedure are in the results section. FINE NEEDLE ASPIRATE BY AP Routine 03/04/2018 10:23 AM Results for this EBUS STAFF MIDWIFE/APPRENTICESHIP DIRECTOR procedure are in the results section. EBUS FNA REQUEST Routine 03/04/2018 10:08 AM Results for this STAFF MIDWIFE/APPRENTICESHIP DIRECTOR procedure are in the results section. FINE NEEDLE ASPIRATE BY AP Routine 03/04/2018 10:08 AM Results for this EBUS STAFF MIDWIFE/APPRENTICESHIP DIRECTOR procedure are in the results section. EBUS FNA REQUEST Routine 03/04/2018 10:02 AM Results for this STAFF MIDWIFE/APPRENTICESHIP DIRECTOR procedure are in the results section. FINE NEEDLE ASPIRATE BY AP Routine 03/04/2018 10:02 AM Results for this EBUS STAFF MIDWIFE/APPRENTICESHIP DIRECTOR procedure are in the results section. EBUS FNA REQUEST Routine 03/04/2018 10:01 AM Results for this STAFF MIDWIFE/APPRENTICESHIP DIRECTOR procedure are in the results section. EBUS FNA REQUEST Routine 03/04/2018 10:01 AM Results for this STAFF MIDWIFE/APPRENTICESHIP DIRECTOR procedure are in the results section. FINE NEEDLE ASPIRATE BY AP Routine 03/04/2018 10:01 AM Results for this EBUS STAFF MIDWIFE/APPRENTICESHIP DIRECTOR procedure are in the results section. FINE NEEDLE ASPIRATE BY AP Routine 03/04/2018 10:01 AM Results for this EBUS STAFF MIDWIFE/APPRENTICESHIP DIRECTOR procedure are in the results section. TISSUE EXAM AP Routine 03/04/2018 9:17 AM Results for this STAFF MIDWIFE/APPRENTICESHIP DIRECTOR procedure are in the results section. BRONCHOSCOPY,ASPIRATION 03/04/2018 9:02 AM Lung mass TRACHEOBRONCHIAL TREE STAFF MIDWIFE/APPRENTICESHIP DIRECTOR BRONCHOSCOPY,CRYOTHERAPY 03/04/2018 9:02 AM Lung mass TREATMENT FOR STENOSIS STAFF MIDWIFE/APPRENTICESHIP DIRECTOR BRONCHOSCOPY,ENDOBRONCHIAL 03/04/2018 9:02 AM Lung mass ULTRASOUND (EBUS) STAFF MIDWIFE/APPRENTICESHIP DIRECTOR TRANSTRACH/ TRANSBRONCH SAMPLING POCT-GLUCOSE METER Routine 03/04/2018 8:05 AM Results for this STAFF MIDWIFE/APPRENTICESHIP DIRECTOR procedure are in the results section. CBC W/PLT COUNT & AUTO Routine 03/04/2018 5:45 AM Results for this DIFFERENTIAL STAFF MIDWIFE/APPRENTICESHIP DIRECTOR procedure are in the results section. TYPE AND SCREEN, AUTOMATED Routine 03/04/2018 5:45 AM Results for this STAFF MIDWIFE/APPRENTICESHIP DIRECTOR procedure are in the results section. APTT STAT 03/04/2018 5:45 AM Results for this STAFF MIDWIFE/APPRENTICESHIP DIRECTOR procedure are in the results section. PROTHROMBIN TIME/INR STAT 03/04/2018 5:45 AM Results for this STAFF MIDWIFE/APPRENTICESHIP DIRECTOR procedure are in the results section. CBC W/PLT COUNT & AUTO Routine 03/04/2018 5:45 AM Results for this DIFFERENTIAL STAFF MIDWIFE/APPRENTICESHIP DIRECTOR procedure are in the results section. BASIC METABOLIC PANEL (7) Routine 03/04/2018 5:45 AM Results for this STAFF MIDWIFE/APPRENTICESHIP DIRECTOR procedure are in the results section. POCT-GLUCOSE METER Routine 03/03/2018 9:40 PM Results for this STAFF MIDWIFE/APPRENTICESHIP DIRECTOR procedure are in the results section. NM BONE SCAN WHOLE BODY Routine 03/03/2018 2:27 PM Results for this STAFF MIDWIFE/APPRENTICESHIP DIRECTOR procedure are in the results section. POCT-GLUCOSE METER Routine 03/03/2018 11:29 AM Results for this STAFF MIDWIFE/APPRENTICESHIP DIRECTOR procedure are in the results section. POCT-GLUCOSE METER Routine 03/03/2018 8:25 AM Results for this STAFF MIDWIFE/APPRENTICESHIP DIRECTOR procedure are in the results section. CBC W/PLT COUNT & AUTO Routine 03/03/2018 4:53 AM Results for this DIFFERENTIAL STAFF MIDWIFE/APPRENTICESHIP DIRECTOR procedure are in the results section. CBC W/PLT COUNT & AUTO Routine 03/03/2018 4:53 AM Results for this DIFFERENTIAL STAFF MIDWIFE/APPRENTICESHIP DIRECTOR procedure are in the results section. POCT-GLUCOSE METER Routine 03/02/2018 9:25 PM Results for this STAFF MIDWIFE/APPRENTICESHIP DIRECTOR procedure are in the results section. POCT-GLUCOSE METER Routine 03/02/2018 1:06 PM Results for this STAFF MIDWIFE/APPRENTICESHIP DIRECTOR procedure are in the results section. POCT-GLUCOSE METER Routine 03/02/2018 8:06 AM Results for this STAFF MIDWIFE/APPRENTICESHIP DIRECTOR procedure are in the results section. URINALYSIS W/ REFLEX URINE Routine 03/02/2018 6:00 AM Results for this CULTURE STAFF MIDWIFE/APPRENTICESHIP DIRECTOR procedure are in the results section. CBC W/PLT COUNT & AUTO Routine 03/02/2018 4:54 AM Results for this DIFFERENTIAL STAFF MIDWIFE/APPRENTICESHIP DIRECTOR procedure are in the results section. CBC W/PLT COUNT & AUTO Routine 03/02/2018 4:54 AM Results for this DIFFERENTIAL STAFF MIDWIFE/APPRENTICESHIP DIRECTOR procedure are in the results section. BASIC METABOLIC PANEL (7) Routine 03/02/2018 4:54 AM Results for this STAFF MIDWIFE/APPRENTICESHIP DIRECTOR procedure are in the results section. POCT-GLUCOSE METER Routine 03/01/2018 9:02 PM Results for this STAFF MIDWIFE/APPRENTICESHIP DIRECTOR procedure are in the results section. POCT-GLUCOSE METER Routine 03/01/2018 5:46 PM Results for this STAFF MIDWIFE/APPRENTICESHIP DIRECTOR procedure are in the results section. POCT-GLUCOSE METER Routine 03/01/2018 12:17 PM Results for this STAFF MIDWIFE/APPRENTICESHIP DIRECTOR procedure are in the results section. CBC W/PLT COUNT & AUTO Routine 03/01/2018 6:14 AM Results for this DIFFERENTIAL STAFF MIDWIFE/APPRENTICESHIP DIRECTOR procedure are in the results section. CBC W/PLT COUNT & AUTO Routine 03/01/2018 6:14 AM Results for this DIFFERENTIAL STAFF MIDWIFE/APPRENTICESHIP DIRECTOR procedure are in the results section. BASIC METABOLIC PANEL (7) Routine 03/01/2018 6:14 AM Results for this STAFF MIDWIFE/APPRENTICESHIP DIRECTOR procedure are in the results section. POCT-GLUCOSE METER Routine 03/01/2018 6:07 AM Results for this STAFF MIDWIFE/APPRENTICESHIP DIRECTOR procedure are in the results section. POCT-GLUCOSE METER Routine 02/28/2018 6:18 PM Results for this STAFF MIDWIFE/APPRENTICESHIP DIRECTOR procedure are in the results section. CT ABDOMEN/PELVIS WITH IV Routine 02/28/2018 11:32 AM Results for this CONTRAST STAFF MIDWIFE/APPRENTICESHIP DIRECTOR procedure are in the results section. CT CHEST WITH IV CONTRAST Routine 02/28/2018 11:32 AM Results for this STAFF MIDWIFE/APPRENTICESHIP DIRECTOR procedure are in the results section. POCT-GLUCOSE METER Routine 02/28/2018 8:10 AM Results for this STAFF MIDWIFE/APPRENTICESHIP DIRECTOR procedure are in the results section. POCT-GLUCOSE METER Routine 02/28/2018 5:54 AM Results for this STAFF MIDWIFE/APPRENTICESHIP DIRECTOR procedure are in the results section. MR BRAIN WITHOUT & WITH IV LORETTA 02/28/2018 5:03 AM Results for this CONTRAST STAFF MIDWIFE/APPRENTICESHIP DIRECTOR procedure are in the results section. CBC W/PLT COUNT & AUTO Routine 02/28/2018 3:23 AM Results for this DIFFERENTIAL STAFF MIDWIFE/APPRENTICESHIP DIRECTOR procedure are in the results section. CBC W/PLT COUNT & AUTO Routine 02/28/2018 3:23 AM Results for this DIFFERENTIAL STAFF MIDWIFE/APPRENTICESHIP DIRECTOR procedure are in the results section. BASIC METABOLIC PANEL (7) Routine 02/28/2018 3:23 AM Results for this STAFF MIDWIFE/APPRENTICESHIP DIRECTOR procedure are in the results section. POCT-GLUCOSE METER Routine 02/28/2018 12:07 AM Results for this STAFF MIDWIFE/APPRENTICESHIP DIRECTOR procedure are in the results section. BLOOD CULTURE Routine 02/27/2018 6:57 PM Results for this STAFF MIDWIFE/APPRENTICESHIP DIRECTOR procedure are in the results section. POCT-GLUCOSE METER Routine 02/27/2018 6:30 PM Results for this STAFF MIDWIFE/APPRENTICESHIP DIRECTOR procedure are in the results section. POCT-GLUCOSE METER Routine 02/27/2018 11:50 AM Results for this STAFF MIDWIFE/APPRENTICESHIP DIRECTOR procedure are in the results section. ECG 12-LEAD Routine 02/27/2018 8:17 AM Results for this STAFF MIDWIFE/APPRENTICESHIP DIRECTOR procedure are in the results section. POCT-GLUCOSE METER Routine 02/27/2018 5:29 AM Results for this STAFF MIDWIFE/APPRENTICESHIP DIRECTOR procedure are in the results section. C-REACTIVE PROTEIN Routine 02/27/2018 5:27 AM Results for this STAFF MIDWIFE/APPRENTICESHIP DIRECTOR procedure are in the results section. LACTATE DEHYDROGENASE Routine 02/27/2018 5:27 AM Results for this (LDH) STAFF MIDWIFE/APPRENTICESHIP DIRECTOR procedure are in the results section. LACTIC ACID, ARTERIAL Routine 02/27/2018 5:27 AM Results for this STAFF MIDWIFE/APPRENTICESHIP DIRECTOR procedure are in the results section. PROCALCITONIN Routine 02/27/2018 5:27 AM Results for this STAFF MIDWIFE/APPRENTICESHIP DIRECTOR procedure are in the results section. BLOOD CULTURE Routine 02/27/2018 5:27 AM Results for this STAFF MIDWIFE/APPRENTICESHIP DIRECTOR procedure are in the results section. PHOSPHORUS Routine 02/27/2018 5:04 AM Results for this STAFF MIDWIFE/APPRENTICESHIP DIRECTOR procedure are in the results section. MAGNESIUM Routine 02/27/2018 5:04 AM Results for this STAFF MIDWIFE/APPRENTICESHIP DIRECTOR procedure are in the results section. PT/APTT Routine 02/27/2018 5:04 AM Results for this STAFF MIDWIFE/APPRENTICESHIP DIRECTOR procedure are in the results section. PROTHROMBIN TIME/INR Routine 02/27/2018 5:04 AM Results for this STAFF MIDWIFE/APPRENTICESHIP DIRECTOR procedure are in the results section. BASIC METABOLIC PANEL (7) Routine 02/27/2018 5:04 AM Results for this STAFF MIDWIFE/APPRENTICESHIP DIRECTOR procedure are in the results section. TROPONIN I Routine 02/27/2018 5:04 AM Results for this STAFF MIDWIFE/APPRENTICESHIP DIRECTOR procedure are in the results section. CBC W/PLT COUNT & AUTO Routine 02/27/2018 5:00 AM Results for this DIFFERENTIAL STAFF MIDWIFE/APPRENTICESHIP DIRECTOR procedure are in the results section. CBC W/PLT COUNT & AUTO Routine 02/27/2018 5:00 AM Results for this DIFFERENTIAL STAFF MIDWIFE/APPRENTICESHIP DIRECTOR procedure are in the results section. after 07/26/2017 Results INTRAOPERATIVE PATH REPORT - SCAN (03/21/2018 3:20 PM STAFF MIDWIFE/APPRENTICESHIP DIRECTOR) Narrative Performed At RHYTHM STRIP - SCAN (03/17/2018 12:30 PM STAFF MIDWIFE/APPRENTICESHIP DIRECTOR) Narrative Performed At POC-Glucose meter (03/10/2018 11:26 AM STAFF MIDWIFE/APPRENTICESHIP DIRECTOR)Only the most recent of43 resultswithin the time period is included. POC-Glucose Meter 114 (H)Comment: TESTED AT 70 - 110 mg/dL [facility] [address] [facility] [id number] Specimen Blood Performing Organization Address City/State/Zipcode Phone Number [address] [address] CENTER CBC with platelet count + automated diff (03/10/2018 4:52 AM STAFF MIDWIFE/APPRENTICESHIP DIRECTOR)Only the most recent of12 resultswithin the time period is included. WBC 20.9 (H) 3.5 - 10.5 K/L [facility] RBC 5.18 3.93 - 5.22 M/L [facility] Hemoglobin 12.9 11.2 - 15.7 GM/DL [facility] Hematocrit 41.8 34.1 - 44.9 % [facility] MCV 80.7 79.4 - 94.8 fL [facility] MCH 24.9 (L) 25.6 - 32.2 pg [facility] MCHC 30.9 (L) 32.2 - 35.5 GM/DL [facility] RDW 15.7 (H) 11.7 - 14.4 % [facility] Platelets 485 (H) 150 - 450 K/CU MM [facility] MPV 9.1 (L) 9.4 - 12.3 fL [facility] nRBC 0 0 - 0 /100 WBC [facility] % Neutros 82 % [facility] % Lymphs 10 % [facility] % Monos 6 % [facility] % Eos 1 % [facility] % Baso 0 % [facility] # Neutros 17.13 (H) 1.56 - 6.13 K/L [facility] # Lymphs 2.17 1.18 - 3.74 K/L [facility] # Monos 1.19 (H) 0.24 - 0.36 K/L [facility] # Eos 0.17 0.04 - 0.36 K/L [facility] # Baso 0.03 0.01 - 0.08 K/L [facility] Immature 1 0 - 1 % [facility] Specimen Blood Performing Organization Address City/State/Zipcode Phone Number [facility] [address] [place] [address] CENTER Basic metabolic panel (03/10/2018 4:52 AM STAFF MIDWIFE/APPRENTICESHIP DIRECTOR)Only the most recent of11 resultswithin the time period is included. Sodium 134 (L) 136 - 145 meq/L [facility] Potassium 4.4 3.5 - 5.1 meq/L [facility] Chloride 103 98 - 107 meq/L [facility] CO2 23 22 - 29 meq/L [facility] BUN 19 7 - 21 mg/dL [facility] Creatinine 0.60 0.57 - 1.25 mg/dL [facility] Glucose 103 70 - 105 mg/dL [facility] Calcium 9.7 8.4 - 10.2 mg/dL [facility] EGFR Comment: INSUFFICIENT CLINICAL mL/min/1.73 sq m [facility] DATA TO CALCULATE ESTIMATED MEDICAL CENTER GFR. Specimen Blood Performing Organization Address City/State/Zipcode Phone Number [facility] [address] [place] [address] CENTER MR brain without & with IV contrast (03/08/2018 11:47 AM STAFF MIDWIFE/APPRENTICESHIP DIRECTOR)Only the most recent of2 resultswithin the time period is included. Specimen Narrative Performed At FINAL [facility]PORT [facility] MRI Brain with and without contrast Clinical [...] MD Report Verified Date/Time:03/08/2018 12:29:16 Reading Location: [address] Neuro Reading Room Procedure Note Interface, External Ris In - 03/08/2018 12:31 PM STAFF MIDWIFE/APPRENTICESHIP DIRECTOR FINAL REPORT MRI Brain with and without [...] Report Verified Date/Time: 03/08/2018 12:29:16 Reading Location: [address] Neuro Reading Room Performing Organization Address City/State/Zipcode Phone Number [facility] RIS Manual Differential (03/08/2018 3:33 AM STAFF MIDWIFE/APPRENTICESHIP DIRECTOR)Only the most recent of2 resultswithin the time period is included. % Neutros 91 % [facility] % Lymphs 6 % [facility] % Monos 1 % [facility] % Bands 2 0 - 10 % [facility] # Neutros 23.11 (H) 1.56 - 6.13 K/ul [facility] # Lymphs 1.52 1.18 - 3.74 K/ul [facility] # Monos 0.25 0.24 - 0.36 K/uL [facility] # Bands 0.51 0.00 - 0.80 K/uL [facility] Total Counted 100 [facility] WBC Morphology Normal [facility] Platelet Morphology Normal [facility] Polychromasia 3+ many [facility] Anisocytosis 2+ moderate [facility] Microcytes 1+ few [facility] Artifact Present [facility] Platelet Conc Increased [facility] Specimen Blood Narrative Performed At Received comment: [facility] User comments: Slide comments: Performing Organization Address City/[facility] Phone Number [address] [address] [phone] CENTER Phosphorus (03/07/2018 3:59 AM STAFF MIDWIFE/APPRENTICESHIP DIRECTOR)Only the most recent of2 resultswithin the time period is included. Phosphorus 3.4 2.3 - 4.7 mg/dL [facility] Specimen Blood Performing Organization Address City/[facility] Phone Number [address] [address] CENTER Magnesium (03/07/2018 3:59 AM STAFF MIDWIFE/APPRENTICESHIP DIRECTOR)Only the most recent of2 resultswithin the time period is included. Magnesium 1.9 1.6 - 2.6 mg/dL [facility] Specimen Blood Performing Organization Address City/[facility] Phone Number [address] [address] CENTER Tissue Exam (03/06/2018 6:28 PM STAFF MIDWIFE/APPRENTICESHIP DIRECTOR)Only the most recent of2 resultswithin the time period is included. Case Report Surgical Pathology Report Case: [id number] [facility] Authorizing Provider:Robert Hightower MDCollected: 03/06/2018 1828 [facility] Received: 03/07/2018 0900 SERVICES Pathologist: Blu Bowers MD Specimen:Tumor ADDENDUM The following results were reported by [employer]. Please see attached reports. 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 CPT Code(s) 82723; 88947; 78224 x 6 [facility] CLINICAL HISTORY Cancer of cerebellum [facility] SPECIMEN SOURCE Tumor of cranium [facility] GROSS DESCRIPTION The specimen is received in a [facility] formalin-filled container [facility] labeled with the patient's information and labeled "cranium tumor" and consists of multiple fragments of santiago hemorrhagic soft tissue measuring 3 x 2.5 x 1 cm in aggregate. The specimen is entirely submitted in A1 and A2. CG/ew MICROSCOPIC DESCRIPTION Performed [facility] SPECIAL STUDIES The interpretation of this case included the use of immunohistochemistry or special stains. [facility] Immunohistochemistry technical testing was performed at [facility], Pathology Laboratory where it was developed and [...] developed and its performance characteristics determined by [facility], Pathology Laboratory. It has not been cleared [...] Tumor Narrative Performed At Performing Organization Address City/[facility]/Zipcode Phone Number [address] [address] [place] PT/aPTT (03/06/2018 4:37 AM STAFF MIDWIFE/APPRENTICESHIP DIRECTOR)Only the most recent of2 resultswithin the time period is included. Protime 13.1 11.7 - 14.7 seconds [facility] INR 1.0 <=5.9 [facility] PTT 24.2 22.5 - 36.0 seconds [facility] Specimen Blood Narrative Performed At RECOMMENDED COUMADIN/WARFARIN INR THERAPY [facility] RANGES STANDARD DOSE: 2.0 - 3.0 Includes: PROPHYLAXIS for venous thrombosis, systemic embolization; TREATMENT for venous thrombosis and/or pulmonary embolus. HIGH RISK: Target INR is 2.5-3.5 for patients with mechanical heart valves. Performing Organization Address City/[facility] Phone Number [address] [address] [place] TRANSFUSION SERVICE REPORT - SCAN (03/05/2018 6:01 PM STAFF MIDWIFE/APPRENTICESHIP DIRECTOR) Narrative Performed At REPORT OF PROCEDURE - ENDOSCOPY URL (03/04/2018 11:06 AM STAFF MIDWIFE/APPRENTICESHIP DIRECTOR) Narrative Performed At EBUS FNA REQUEST (03/04/2018 10:23 AM STAFF MIDWIFE/APPRENTICESHIP DIRECTOR)Only the most recent of5 resultswithin the time period is included. Cytology See Separate Report [facility] Specimen EBUS Fine Needle Aspirate - Lymph Node, Interlobar, Right, Station 11R Performing Organization Address City/State/Zipcode Phone Number [facility] [address] [place] [address] CENTER Fine Needle Aspiration by EBUS (03/04/2018 10:23 AM STAFF MIDWIFE/APPRENTICESHIP DIRECTOR)Only the most recent of5 resultswithin the time period is included. Case Report Medical Cytology Report Case: [id number] [facility] Authorizing Provider:Robert Tirado MDCollected: 03/04/2018 1023 [facility] Ordering Location: [address] Received: 03/04/2018 1244 Service Pathologist: Ben Vila MD Specimen:Lymph Node, Interlobar, Right, Station 11R DIAGNOSIS LYMPH NODE, INTERLOBAR RIGHT, STATION 11R EBUS FNA BY CLINICIAN ( CYTOSPINS OF ASPIRATE): [facility] - NEGATIVE FOR MALIGNANCY [facility] - LYMPHOCYTES PRESENT Signing Pathologist Direct Phone Line: [phone] COMMENT [facility] Please also see surgical pathology report [id number] and cytopathology reports [id number], [id number], [id number] and [id number]. [facility] CPT Code(s) 47573 [facility] CLINICAL DATA Lung mass [facility] SPECIMEN SOURCE LYMPH NODE, INTERLOBAR RIGHT, [facility] STATION 11R EBUS FNA [facility] GROSS DESCRIPTION 40 mls in cytorich red; 2 cytospins [facility] Collected: [id number] [facility] Received: [id number] SPECIAL STUDIES The interpretation of this case included the use of immunohistochemistry or special stains. [facility] Immunohistochemistry technical testing was performed at [facility], Pathology Laboratory where it was developed and [...] complexity clinical laboratory testing. Gross assessment was [facility] performed at [place], Department [facility] Pathology, [address] [place] [address], Technical component was [facility] performed at [place], [facility] Pathology, [address] [place] [address], Professional component [facility] was performed at [place], [facility] Pathology, [address] [place] [address], Specimen EBUS Fine Needle Aspirate - Lymph Node, Interlobar, Right, Station 11R Narrative Performed At Performing Organization Address City/[facility] Phone Number [address] [address] CENTER Type and screen, automated (03/04/2018 5:45 AM STAFF MIDWIFE/APPRENTICESHIP DIRECTOR) ABO/RH AUTOMATED (BEAKER) A POSITIVE [facility] Ab Scrn NEGATIVE [facility] Specimen Blood Performing Organization Address [facility] Phone Number [address] [address] aPTT (03/04/2018 5:45 AM STAFF MIDWIFE/APPRENTICESHIP DIRECTOR) PTT 25.2 22.5 - 36.0 seconds [facility] Specimen Blood Performing Organization Address [facility]/Zipcode Phone Number [address] [address] CENTER Prothrombin time/INR (03/04/2018 5:45 AM STAFF MIDWIFE/APPRENTICESHIP DIRECTOR)Only the most recent of2 resultswithin the time period is included. Protime 13.6 11.7 - 14.7 seconds [facility] INR 1.0 <=5.9 [facility] Specimen Blood Narrative Performed At RECOMMENDED COUMADIN/WARFARIN INR THERAPY [facility] RANGES STANDARD DOSE: 2.0 - 3.0 Includes: PROPHYLAXIS for venous thrombosis, systemic embolization; TREATMENT for venous thrombosis and/or pulmonary embolus. HIGH RISK: Target INR is 2.5-3.5 for patients with mechanical heart valves. Performing Organization Address City/State/Zipcode Phone Number [facility] [address] [place] [address] [phone] CENTER [place] bone scan whole body (03/03/2018 2:27 PM STAFF MIDWIFE/APPRENTICESHIP DIRECTOR) Specimen Narrative Performed At FINAL REPORT [facility] PROCEDURE: BONE SCAN, WHOLE BODY CPT CODE:90925 INDICATION:Right lung cancer with cerebellar metastasis PROTOCOL:21.6 [...] MD Report Verified Date/Time:03/03/2018 15:34:30 Reading Location: [address] Reading Room Procedure Note Interface, External Ris In - 03/03/2018 3:36 PM STAFF MIDWIFE/APPRENTICESHIP DIRECTOR FINAL REPORT PROCEDURE: BONE SCAN, WHOLE BODY CPT CODE: 72945 INDICATION: Right lung cancer with cerebellar metastasis [...] Report Verified Date/Time: 03/03/2018 15:34:30 Reading Location: [address] Reading Room Performing Organization Address City/State/Zipcode Phone Number RIS Urinalysis w/Microscopic + Reflex to Culture (03/02/2018 6:00 AM STAFF MIDWIFE/APPRENTICESHIP DIRECTOR) Color, UA Light Yellow [facility] Clarity, UA Hazy [facility] Specific [place], UA 1.019 1.001 - 1.035 [facility] pH, UA 7.0 5.0 - 8.0 [facility] Protein, UA Negative Negative [facility] Glucose, UA Negative Negative [facility] Ketones, UA Negative Negative [facility] Bilirubin, UA Negative Negative [facility] Blood, UA Negative Negative [facility] Nitrite, UA Negative Negative [facility] Leukocytes, UA Negative Negative [facility] Urobilinogen, UA 0.2 0.2 - 1.0 mg/dL [facility] RBC, UA 2 /HPF [facility] WBC, UA 0 /HPF [facility] Mucus Rare [facility] Squam Epithel, UA <1 /HPF [facility] Specimen Source [facility] Specimen Urine Performing Organization Address City/State/Zipcode Phone Number [facility] [address] [place] [address] abdomen/pelvis with IV contrast (02/28/2018 11:32 AM STAFF MIDWIFE/APPRENTICESHIP DIRECTOR) Specimen Narrative Performed At FINAL REPORT GE [...] MD Report Verified Date/Time:02/28/2018 15:20:36 Reading Location: [facility] B1 C013Y CT Body Reading Room Procedure Note Interface, External Ris In - 02/28/2018 3:22 PM STAFF MIDWIFE/APPRENTICESHIP DIRECTOR FINAL REPORT CT of the Chest, abdomen [...] Report Verified Date/Time: 02/28/2018 15:20:36 Reading Location: [facility] B1 C013Y CT Body Reading Room Performing Organization Address City/State/Zipcode Phone Number GE RIS CT chest with IV contrast (02/28/2018 11:32 AM STAFF MIDWIFE/APPRENTICESHIP DIRECTOR) Specimen Narrative Performed At FINAL REPORT [employer] RIS CT of the Chest, abdomen and [...] MD Report Verified Date/Time:02/28/2018 15:20:36 Reading Location: [address] Body Reading Room Procedure Note Interface, External Ris In - 02/28/2018 3:22 PM STAFF MIDWIFE/APPRENTICESHIP DIRECTOR FINAL REPORT CT of the Chest, abdomen [...] Report Verified Date/Time: 02/28/2018 15:20:36 Reading Location: [facility] C013 CT Body Reading Room Performing Organization Address City/State/Zipcode Phone Number [employer] RIS Blood culture (02/27/2018 6:57 PM STAFF MIDWIFE/APPRENTICESHIP DIRECTOR)Only the most recent of2 resultswithin the time period is included. Result No growth in 5 days [facility] Specimen Blood Performing Organization Address City/[facility]/Zipcode Phone Number [address] [address] [phone] CENTER ECG 12 lead (02/27/2018 8:17 AM STAFF MIDWIFE/APPRENTICESHIP DIRECTOR) Specimen Narrative Performed At Ventricular Rate 61 BPM GE MUSE Atrial Rate 61 BPM P-R Interval 154 ms QRS Duration 94 ms Q-T Interval 472 ms QTC Calculation(Bazett) 475 ms P [place] 39 degrees R [place] 4 degrees T [place] 4 degrees Normal sinus rhythm Prolonged QT Abnormal ECG No previous ECGs available Confirmed by MD REBOLLEDO JORGE ([id number]) on 02/27/2018 11:34:39 AM Procedure Note Interface, External Ris In - 02/27/2018 11:34 AM STAFF MIDWIFE/APPRENTICESHIP DIRECTOR Ventricular Rate 61 BPM Atrial Rate 61 BPM P-R Interval 154 ms QRS Duration 94 ms Q-T Interval 472 ms QTC Calculation(Bazett) 475 ms P [place] 39 degrees R [place] 4 degrees T [place] 4 degrees Normal sinus rhythm Prolonged QT Abnormal ECG No previous ECGs available Confirmed by MD REBOLLEDO JORGE ([id number]) on 02/27/2018 11:34:39 AM Performing Organization Address City/[facility] Phone Number [facility] Procalcitonin (02/27/2018 5:27 AM STAFF MIDWIFE/APPRENTICESHIP DIRECTOR) Procalcitonin <0.05 <0.05 ng/mL [facility] Specimen Blood Narrative Performed At SEPSIS RISK (ng/mL) [facility] Low:0.05-0.50 Intermediate: 0.51-2.00 High: >=2.01 Performing Organization Address [facility] Phone Number [address] [address] [phone] CENTER C-Reactive Protein (02/27/2018 5:27 AM STAFF MIDWIFE/APPRENTICESHIP DIRECTOR) CRP 8.22 (H) 0.00 - 0.50 mg/dL [facility] Specimen Blood Performing Organization Address [facility] Phone Number [address] [address] [phone] [place] Lactic acid, arterial, whole blood (02/27/2018 5:27 AM STAFF MIDWIFE/APPRENTICESHIP DIRECTOR) Lactate, Art 1.0 0.5 - 2.2 mmol/L [facility] Specimen Blood, Arterial Performing Organization Address [facility] Phone Number [address] [address] [phone] CENTER Lactate dehydrogenase (LDH) (02/27/2018 5:27 AM STAFF MIDWIFE/APPRENTICESHIP DIRECTOR) LDH 146 125 - 220 U/L [facility] Specimen Blood Performing Organization Address [facility] Phone Number [address] [address] [phone] CENTER Troponin I (02/27/2018 5:04 AM STAFF MIDWIFE/APPRENTICESHIP DIRECTOR) Troponin I <0.01 0.00 - 0.03 ng/mL [facility] CENTER Specimen Blood Performing Organization Address City/State/Zipcode Phone Number [facility] [address] [place] [address] CENTER after 07/26/2017 Insurance Payer Benefit Plan / Group Subscriber ID Type Phone Address MEDICAID [place] xxxxxxxxx Medicaid Advance Directives For more information, please contact:[facility] [place] [address] [phone] Code Status Date Activated Date Inactivated Comments Full Code 02/27/2018 3:43 AM This code status was determined by: Patient
--- OUTSIDE RECORDS SUMMARY | 2018-07-27 08:32 | XMS REPORT ---
:1960 Author Organization [facility] Address [address] [place] [address] [address] [place] [address] Care Team Providers Name Role Phone JACOBY MÁRQUEZ Unavailable Unavailable Problems This patient has no known problems. Allergies, Adverse Reactions, Alerts This patient has no known allergies or adverse reactions. Medications This patient has no known medications. Results Test Description Test Time Test Comments Text Results Atomic Results Result Comments TISSUE EXAM 2018-05-24 13:16:00 Surgical Pathology Report Case: [id number] Authorizing Provider: Robert Hightower MD Collected: 03/06/2018 1828 Ordering Location: [facility] Received: 03/07/2018 0900 SERVICES Pathologist: Blu Bowers MD Specimen: Tumor The following results were reported by eTelemetry. Please see attached reports.PD-L1 22C3 FDA analysis confirms HIGH EXPRESSIONBRAF gene rearrangement is NOT DETECTEDROS1 gene rearrangement is NOT DETECTEDALK gene rearrangement is NOT DETECTEDEGFR mutations in exons 18, 19, 20 T790M and other mutations, 21Addendum electronically signed by Blu Bowers MD on 05/24/2018 at 1:16 PMBRAIN, CEREBELLUM, CRANIOTOMY:METASTATIC ADENOCARCINOMA WITH FOCAL SQUAMOUS DIFFERENTIATION (SEE COMMENT) Signing Pathologist Direct Phone Line: [phone] signed by Blu Bowers MD on 03/19/2018 [...] tumor cells. Tumor is negative for p63. 24352; 71898; 86659 x 6Cancer of cerebellumTumor of craniumThe specimen [...] stains. Immunohistochemistry technical testing was performed at [facility], Pathology Laboratory where it was developed [...] developed and its performance characteristics determined by [facility]ology [facility]. It has not been cleared [...] (BEAKER) (test 174 mg/dL 70-110 TESTED AT [address] eowb=3878) [facility] [address] POCT-GLUCOSE [id number] 12:07:00 Test Item Value Reference Range Comments POC-GLUCOSE METER (BEAKER) 114 mg/dL 70-110 TESTED AT [address] (test nrfg=0631) [place] [id number] POCT-GLUCOSE [id number] 07:14:00 Test Item Value Reference Range Comments POC-GLUCOSE METER (BEAKER) 104 mg/dL 70-110 TESTED AT [address] (test eedk=9472) [place] [address] BASIC METABOLIC [id number] 05:46:00 Test Item Value Reference Range Comments SODIUM (BEAKER) (test 134 meq/L 136-145 elmo=155) POTASSIUM (BEAKER) (test 4.4 meq/L 3.5-5.1 ikcq=977) CHLORIDE (BEAKER) (test 103 meq/L 98-107 vcqr=832) CO2 (BEAKER) (test 23 meq/L 22-29 vgzc=318) BLOOD UREA NITROGEN 19 mg/dL 7-21 (BEAKER) (test cgjl=371) CREATININE (BEAKER) (test 0.60 mg/dL 0.57-1.25 tlwf=451) GLUCOSE RANDOM (BEAKER) 103 mg/dL 70-105 (test ladk=585) CALCIUM (BEAKER) (test 9.7 mg/dL 8.4-10.2 ewuf=068) EGFR (BEAKER) (test mL/min/1.73 sq m INSUFFICIENT CLINICAL DATA txcp=0168) TO CALCULATE ESTIMATED GFR. CBC W/PLT COUNT & AUTO [id number] 05:20:00 Test Item Value Reference Range Comments WHITE BLOOD CELL COUNT (BEAKER) (test igdj=447) 20.9 K/ L 3.5-10.5 RED BLOOD CELL COUNT (BEAKER) (test ajnj=520) 5.18 M/ L 3.93-5.22 HEMOGLOBIN (BEAKER) (test qhya=892) 12.9 GM/DL 11.2-15.7 HEMATOCRIT (BEAKER) (test zknh=270) 41.8 % 34.1-44.9 MEAN CORPUSCULAR VOLUME (BEAKER) (test lncx=457) 80.7 fL 79.4-94.8 MEAN CORPUSCULAR HEMOGLOBIN (BEAKER) (test 24.9 pg 25.6-32.2 neig=740) MEAN CORPUSCULAR HEMOGLOBIN CONC (BEAKER) (test 30.9 GM/DL 32.2-35.5 ldwn=143) RED CELL DISTRIBUTION WIDTH (BEAKER) (test 15.7 % 11.7-14.4 layf=503) PLATELET COUNT (BEAKER) (test meyr=630) 485 K/CU MM 150-450 MEAN PLATELET VOLUME (BEAKER) (test rycw=454) 9.1 fL 9.4-12.3 NUCLEATED RED BLOOD CELLS (BEAKER) (test 0 /100 WBC 0-0 oekn=072) NEUTROPHILS RELATIVE PERCENT (BEAKER) (test 82 % xkld=661) LYMPHOCYTES RELATIVE PERCENT (BEAKER) (test 10 % vexg=993) MONOCYTES RELATIVE PERCENT (BEAKER) (test 6 % hsju=131) EOSINOPHILS RELATIVE PERCENT (BEAKER) (test 1 % ssyw=773) BASOPHILS RELATIVE PERCENT (BEAKER) (test 0 % qaue=362) NEUTROPHILS ABSOLUTE COUNT (BEAKER) (test 17.13 K/ L 1.56-6.13 osip=091) LYMPHOCYTES ABSOLUTE COUNT (BEAKER) (test 2.17 K/ L 1.18-3.74 pedd=316) MONOCYTES ABSOLUTE COUNT (BEAKER) (test 1.19 K/ L 0.24-0.36 iulk=516) EOSINOPHILS ABSOLUTE COUNT (BEAKER) (test 0.17 K/ L 0.04-0.36 djpk=062) BASOPHILS ABSOLUTE COUNT (BEAKER) (test 0.03 K/ L 0.01-0.08 jvlb=867) IMMATURE GRANULOCYTES-RELATIVE PERCENT (BEAKER) 1 % 0-1 (test xfbh=8475) POCT-GLUCOSE [id number] 21:30:00 Test Item Value Reference Range Comments POC-GLUCOSE METER (BEAKER) 111 mg/dL 70-110 TESTED AT [address] (test kxkc=0937) [place] [address] POCT-GLUCOSE [id number] 18:19:00 Test Item Value Reference Range Comments POC-GLUCOSE METER (BEAKER) 175 mg/dL 70-110 TESTED AT [address] (test gudp=0545) [place] [address] POCT-GLUCOSE [id number] 08:28:00 Test Item Value Reference Range Comments POC-GLUCOSE METER (BEAKER) 143 mg/dL 70-110 TESTED AT [address] (test cyxo=9902) [place] [address] BASIC METABOLIC [id number] 06:32:00 Test Item Value Reference Range Comments SODIUM (BEAKER) (test 134 meq/L 136-145 uwom=119) POTASSIUM (BEAKER) (test 4.8 meq/L 3.5-5.1 dnsd=170) CHLORIDE (BEAKER) (test 101 meq/L 98-107 vvkt=633) CO2 (BEAKER) (test 28 meq/L 22-29 hzod=308) BLOOD UREA NITROGEN 23 mg/dL 7-21 (BEAKER) (test zfak=160) CREATININE (BEAKER) (test 0.66 mg/dL 0.57-1.25 llyw=338) GLUCOSE RANDOM (BEAKER) 107 mg/dL 70-105 (test usfs=881) CALCIUM (BEAKER) (test 9.3 mg/dL 8.4-10.2 xyum=917) EGFR (BEAKER) (test mL/min/1.73 sq m INSUFFICIENT CLINICAL DATA zhjk=3935) TO CALCULATE ESTIMATED GFR. CBC W/PLT COUNT & AUTO [id number] 06:29:00 Test Item Value Reference Range Comments WHITE BLOOD CELL COUNT (BEAKER) (test lkwp=361) 20.6 K/ L 3.5-10.5 RED BLOOD CELL COUNT (BEAKER) (test hdyb=515) 4.79 M/ L 3.93-5.22 HEMOGLOBIN (BEAKER) (test hjmm=641) 12.1 GM/DL 11.2-15.7 HEMATOCRIT (BEAKER) (test mtsr=693) 38.4 % 34.1-44.9 MEAN CORPUSCULAR VOLUME (BEAKER) (test vlbj=184) 80.2 fL 79.4-94.8 MEAN CORPUSCULAR HEMOGLOBIN (BEAKER) (test 25.3 pg 25.6-32.2 ortz=908) MEAN CORPUSCULAR HEMOGLOBIN CONC (BEAKER) (test 31.5 GM/DL 32.2-35.5 cgjo=536) RED CELL DISTRIBUTION WIDTH (BEAKER) (test 15.7 % 11.7-14.4 lnir=794) PLATELET COUNT (BEAKER) (test dafn=634) 415 K/CU MM 150-450 MEAN PLATELET VOLUME (BEAKER) (test yehg=412) 9.0 fL 9.4-12.3 NUCLEATED RED BLOOD CELLS (BEAKER) (test 0 /100 WBC 0-0 ywbf=668) NEUTROPHILS RELATIVE PERCENT (BEAKER) (test 79 % bftk=674) LYMPHOCYTES RELATIVE PERCENT (BEAKER) (test 11 % ubln=008) MONOCYTES RELATIVE PERCENT (BEAKER) (test 7 % vify=140) EOSINOPHILS RELATIVE PERCENT (BEAKER) (test 2 % kebe=008) BASOPHILS RELATIVE PERCENT (BEAKER) (test 0 % lrrd=336) NEUTROPHILS ABSOLUTE COUNT (BEAKER) (test 16.22 K/ L 1.56-6.13 mthh=287) LYMPHOCYTES ABSOLUTE COUNT (BEAKER) (test 2.31 K/ L 1.18-3.74 jnpy=205) MONOCYTES ABSOLUTE COUNT (BEAKER) (test 1.46 K/ L 0.24-0.36 jsqi=148) EOSINOPHILS ABSOLUTE COUNT (BEAKER) (test 0.37 K/ L 0.04-0.36 obpi=102) BASOPHILS ABSOLUTE COUNT (BEAKER) (test 0.03 K/ L 0.01-0.08 rvcm=689) IMMATURE GRANULOCYTES-RELATIVE PERCENT (BEAKER) 1 % 0-1 (test yexr=3046) POCT-GLUCOSE [id number] 21:28:00 Test Item Value Reference Range Comments POC-GLUCOSE METER (BEAKER) 170 mg/dL 70-110 TESTED AT [address] (test bycs=6545) [place] [address] POCT-GLUCOSE [id number] 18:02:00 Test Item Value Reference Range Comments POC-GLUCOSE METER (BEAKER) 180 mg/dL 70-110 TESTED AT [address] (test tcyn=0055) [place] [id number] POCT-GLUCOSE [id number] 13:34:00 Test Item Value Reference Range Comments POC-GLUCOSE METER (BEAKER) 235 mg/dL 70-110 TESTED AT [address] (test wzxt=6471) [facility] [address] MR, BRAIN, [id number] 12:29:00FINAL REPORT MRI Brain with and without [...] MDReport Verified Date/Time: 2017 12:29:16 Reading Location: [address] Neuro Reading Room CBC W/PLT COUNT & AUTO [id number] 07:59:00 Test Item Value Reference Range Comments WHITE BLOOD CELL COUNT (BEAKER) (test xqfq=293) 25.4 K/ L 3.5-10.5 RED BLOOD CELL COUNT (BEAKER) (test mgqz=356) 4.74 M/ L 3.93-5.22 HEMOGLOBIN (BEAKER) (test lbaa=183) 12.2 GM/DL 11.2-15.7 HEMATOCRIT (BEAKER) (test lbhq=973) 37.4 % 34.1-44.9 MEAN CORPUSCULAR VOLUME (BEAKER) (test dwej=513) 78.9 fL 79.4-94.8 MEAN CORPUSCULAR HEMOGLOBIN (BEAKER) (test 25.7 pg 25.6-32.2 ibjb=054) MEAN CORPUSCULAR HEMOGLOBIN CONC (BEAKER) (test 32.6 GM/DL 32.2-35.5 mopa=526) RED CELL DISTRIBUTION WIDTH (BEAKER) (test 15.6 % 11.7-14.4 xzaf=738) PLATELET COUNT (BEAKER) (test qams=130) 471 K/CU MM 150-450 MEAN PLATELET VOLUME (BEAKER) (test fyzc=294) 9.1 fL 9.4-12.3 NUCLEATED RED BLOOD CELLS (BEAKER) (test 0 /100 WBC 0-0 kftc=047) (CELLAVISION MANUAL DIFF)2018-03-08 07:59:00 Test Item Value Reference Range Comments NEUTROPHILS - REL (CELLAVISION)(BEAKER) (test 91 % vrxj=3407) LYMPHOCYTES - REL (CELLAVISION)(BEAKER) (test 6 % lcya=5812) MONOCYTES - REL (CELLAVISION)(BEAKER) (test 1 % fhcz=1349) BANDS - REL (CELLAVISION)(BEAKER) (test 2 % 0-10 swtw=7641) NEUTROPHILS - ABS (CELLAVISION)(BEAKER) (test 23.11 K/ul 1.56-6.13 eagr=3769) LYMPHOCYTES - ABS (CELLAVISION)(BEAKER) (test 1.52 K/ul 1.18-3.74 tmsm=3690) MONOCYTES - ABS (CELLAVISION)(BEAKER) (test 0.25 K/uL 0.24-0.36 eyyp=3059) BANDS - ABS (CELLAVISION)(BEAKER) (test 0.51 K/uL 0.00-0.80 jlvt=5732) TOTAL COUNTED (BEAKER) (test cisr=1708) 100 WBC MORPHOLOGY (BEAKER) (test rywf=631) Normal PLT MORPHOLOGY (BEAKER) (test ehbx=700) Normal POLYCHROMATOPHILLIC RBCS(BEAKER) (test wuap=496) 3+ many ANISOCYTOSIS (BEAKER) (test afin=247) 2+ moderate MICROCYTES (BEAKER) (test mafz=471) 1+ few ARTIFACT (CELLAVISION)(BEAKER) (test gqey=8907) Present PLATELET CONCENTRATION (CELLAVISION)(BEAKER) Increased (test hejp=5406) Received comment: User comments: Slide comments:BASIC METABOLIC [id number] 04:18:00 Test Item Value Reference Range Comments SODIUM (BEAKER) (test 133 meq/L 136-145 cpft=348) POTASSIUM (BEAKER) (test 4.3 meq/L 3.5-5.1 qcxo=340) CHLORIDE (BEAKER) (test 101 meq/L 98-107 vlhd=438) CO2 (BEAKER) (test 25 meq/L 22-29 svrg=822) BLOOD UREA NITROGEN 17 mg/dL 7-21 (BEAKER) (test ocve=062) CREATININE (BEAKER) (test 0.65 mg/dL 0.57-1.25 kwfz=223) GLUCOSE RANDOM (BEAKER) 121 mg/dL 70-105 (test ywgw=093) CALCIUM (BEAKER) (test 9.2 mg/dL 8.4-10.2 nygs=333) EGFR (BEAKER) (test mL/min/1.73 sq m INSUFFICIENT CLINICAL DATA lphc=0371) TO CALCULATE ESTIMATED GFR. POCT-GLUCOSE [id number] 23:21:00 Test Item Value Reference Range Comments POC-GLUCOSE METER (BEAKER) 122 mg/dL 70-110 TESTED AT [address] (test erzb=4002) [place] [address] POCT-GLUCOSE [id number] 22:02:00 Test Item Value Reference Range Comments POC-GLUCOSE METER (BEAKER) 122 mg/dL 70-110 TESTED AT [address] (test dcxm=4646) [place] [address] POCT-GLUCOSE [id number] 18:27:00 Test Item Value Reference Range Comments POC-GLUCOSE METER (BEAKER) 120 mg/dL 70-110 TESTED AT [address] (test lzuh=9833) [place] [id number] POCT-GLUCOSE [id number] 12:26:00 Test Item Value Reference Range Comments POC-GLUCOSE METER (BEAKER) 130 mg/dL 70-110 TESTED AT [address] (test mvot=9512) [place] [address] POCT-GLUCOSE [id number] 08:44:00 Test Item Value Reference Range Comments POC-GLUCOSE METER (BEAKER) 141 mg/dL 70-110 TESTED AT [address] (test qgav=0549) [place] [address] CBC W/PLT COUNT & AUTO [id number] 07:37:00 Test Item Value Reference Range Comments WHITE BLOOD CELL COUNT (BEAKER) (test esee=890) 27.9 K/ L 3.5-10.5 RED BLOOD CELL COUNT (BEAKER) (test dnye=992) 4.44 M/ L 3.93-5.22 HEMOGLOBIN (BEAKER) (test tnpl=123) 11.3 GM/DL 11.2-15.7 HEMATOCRIT (BEAKER) (test yfcd=002) 35.2 % 34.1-44.9 MEAN CORPUSCULAR VOLUME (BEAKER) (test vhkz=499) 79.3 fL 79.4-94.8 MEAN CORPUSCULAR HEMOGLOBIN (BEAKER) (test 25.5 pg 25.6-32.2 hqor=355) MEAN CORPUSCULAR HEMOGLOBIN CONC (BEAKER) (test 32.1 GM/DL 32.2-35.5 romz=863) RED CELL DISTRIBUTION WIDTH (BEAKER) (test 15.2 % 11.7-14.4 idza=185) PLATELET COUNT (BEAKER) (test buqt=368) 491 K/CU MM 150-450 MEAN PLATELET VOLUME (BEAKER) (test mudk=494) 9.0 fL 9.4-12.3 NUCLEATED RED BLOOD CELLS (BEAKER) (test 0 /100 WBC 0-0 cnsi=163) (CELLAVISION MANUAL DIFF)2018-03-07 07:37:00 Test Item Value Reference Range Comments NEUTROPHILS - REL (CELLAVISION)(BEAKER) (test 91 % ctvm=3269) LYMPHOCYTES - REL (CELLAVISION)(BEAKER) (test 3 % qyob=6534) MONOCYTES - REL (CELLAVISION)(BEAKER) (test 5 % cgtb=3076) ATYPICAL LYMPHOCYTES - REL (CELLAVISION)(BEAKER) 1 % 0-0 (test wvsm=5837) NEUTROPHILS - ABS (CELLAVISION)(BEAKER) (test 25.39 K/ul 1.56-6.13 ovxf=9011) LYMPHOCYTES - ABS (CELLAVISION)(BEAKER) (test 0.84 K/ul 1.18-3.74 hqnt=1587) MONOCYTES - ABS (CELLAVISION)(BEAKER) (test 1.40 K/uL 0.24-0.36 irfz=0160) ATYPICAL LYMPHOCYTES - ABS (CELLAVISION)(BEAKER) 0.28 K/uL 0.00-0.00 (test kibe=6241) TOTAL COUNTED (BEAKER) (test emfl=9040) 100 WBC MORPHOLOGY (BEAKER) (test ygju=974) Normal LARGE PLT(BEAKER) (test tnsy=2702) Present POLYCHROMATOPHILLIC RBCS(BEAKER) (test cqfj=498) 1+ few ARTIFACT (CELLAVISION)(BEAKER) (test kfcw=5367) Present PLATELET CONCENTRATION (CELLAVISION)(BEAKER) Increased (test luqm=4773) Received comment: User comments: Slide comments:BASIC METABOLIC [id number] 04:29:00 Test Item Value Reference Range Comments SODIUM (BEAKER) (test 134 meq/L 136-145 stos=321) POTASSIUM (BEAKER) (test 4.3 meq/L 3.5-5.1 uanh=029) CHLORIDE (BEAKER) (test 104 meq/L 98-107 aptm=445) CO2 (BEAKER) (test 23 meq/L 22-29 bbpx=413) BLOOD UREA NITROGEN 18 mg/dL 7-21 (BEAKER) (test hyqn=827) CREATININE (BEAKER) (test 0.63 mg/dL 0.57-1.25 aude=533) GLUCOSE RANDOM (BEAKER) 145 mg/dL 70-105 (test ozih=148) CALCIUM (BEAKER) (test 8.8 mg/dL 8.4-10.2 gass=884) EGFR (BEAKER) (test mL/min/1.73 sq m INSUFFICIENT CLINICAL DATA dzwt=4184) TO CALCULATE ESTIMATED GFR. [id number] 04:28:00 Test Item Value Reference Range Comments PHOSPHORUS (BEAKER) (test ejcz=043) 3.4 mg/dL 2.3-4.7 [id number] 04:28:00 Test Item Value Reference Range Comments MAGNESIUM (BEAKER) (test kvtp=524) 1.9 mg/dL 1.6-2.6 POCT-GLUCOSE [id number] 22:29:00 Test Item Value Reference Range Comments POC-GLUCOSE METER (BEAKER) 147 mg/dL 70-[address] [facility] [address] [facility] (test hyit=5335) [facility] [address] POCT-GLUCOSE [id number] 12:29:00 Test Item Value Reference Range Comments POC-GLUCOSE METER (BEAKER) 87 mg/dL 70-[address] [facility] [address] [facility] (test exhy=2698) [facility] [address] POCT-GLUCOSE [id number] 08:21:00 Test Item Value Reference Range Comments POC-GLUCOSE METER (BEAKER) 122 mg/dL 70-110 TESTED AT [address] (test xdsg=7859) [place] [address] [id number] 05:32:00 Test Item Value Reference Range Comments PROTIME (BEAKER) (test zvaw=525) 13.1 seconds 11.7-14.7 INR (BEAKER) (test hsoq=060) 1.0 <=5.9 PARTIAL THROMBOPLASTIN TIME (BEAKER) (test 24.2 seconds 22.5-36.0 odxj=093) RECOMMENDED COUMADIN/WARFARIN INR THERAPY RANGESSTANDARD DOSE: 2.0 - 3.0 Includes: PROPHYLAXIS forvenous thrombosis, systemic embolization; TREATMENT for venous thrombosis and/or pulmonary embolus.HIGH RISK: Target INR is 2.5-3.5 for patients with mechanical heart valves.POCT-GLUCOSE [id number] 05:17:00 Test Item Value Reference Range Comments POC-GLUCOSE METER (BEAKER) 127 mg/dL 70-110 TESTED AT [address] (test ufqi=7793) [place] [address] BASIC METABOLIC [id number] 05:16:00 Test Item Value Reference Range Comments SODIUM (BEAKER) (test 135 meq/L 136-145 ekaa=573) POTASSIUM (BEAKER) (test 4.1 meq/L 3.5-5.1 vxrq=060) CHLORIDE (BEAKER) (test 103 meq/L 98-107 oqly=815) CO2 (BEAKER) (test 22 meq/L 22-29 fzjm=265) BLOOD UREA NITROGEN 19 mg/dL 7-21 (BEAKER) (test krno=171) CREATININE (BEAKER) (test 0.69 mg/dL 0.57-1.25 fnlu=113) GLUCOSE RANDOM (BEAKER) 131 mg/dL 70-105 (test koph=439) CALCIUM (BEAKER) (test 9.3 mg/dL 8.4-10.2 tuaf=683) EGFR (BEAKER) (test mL/min/1.73 sq m INSUFFICIENT CLINICAL DATA clwk=8017) TO CALCULATE ESTIMATED GFR. CBC W/PLT COUNT & AUTO [id number] 04:56:00 Test Item Value Reference Range Comments WHITE BLOOD CELL COUNT (BEAKER) (test rsdw=934) 22.3 K/ L 3.5-10.5 RED BLOOD CELL COUNT (BEAKER) (test ltjt=390) 4.71 M/ L 3.93-5.22 HEMOGLOBIN (BEAKER) (test jkxs=395) 11.7 GM/DL 11.2-15.7 HEMATOCRIT (BEAKER) (test zdva=499) 37.1 % 34.1-44.9 MEAN CORPUSCULAR VOLUME (BEAKER) (test iqsn=139) 78.8 fL 79.4-94.8 MEAN CORPUSCULAR HEMOGLOBIN (BEAKER) (test 24.8 pg 25.6-32.2 pizx=510) MEAN CORPUSCULAR HEMOGLOBIN CONC (BEAKER) (test 31.5 GM/DL 32.2-35.5 rkyb=117) RED CELL DISTRIBUTION WIDTH (BEAKER) (test 15.0 % 11.7-14.4 eapd=649) PLATELET COUNT (BEAKER) (test zsgw=005) 529 K/CU MM 150-450 MEAN PLATELET VOLUME (BEAKER) (test xzco=563) 8.9 fL 9.4-12.3 NUCLEATED RED BLOOD CELLS (BEAKER) (test 0 /100 WBC 0-0 ikqa=737) NEUTROPHILS RELATIVE PERCENT (BEAKER) (test 84 % qopk=133) LYMPHOCYTES RELATIVE PERCENT (BEAKER) (test 9 % lmjy=240) MONOCYTES RELATIVE PERCENT (BEAKER) (test 4 % nlez=323) EOSINOPHILS RELATIVE PERCENT (BEAKER) (test 1 % hphk=829) BASOPHILS RELATIVE PERCENT (BEAKER) (test 0 % scnl=787) NEUTROPHILS ABSOLUTE COUNT (BEAKER) (test 18.70 K/ L 1.56-6.13 lher=747) LYMPHOCYTES ABSOLUTE COUNT (BEAKER) (test 2.04 K/ L 1.18-3.74 ezvc=089) MONOCYTES ABSOLUTE COUNT (BEAKER) (test 0.99 K/ L 0.24-0.36 zjrc=442) EOSINOPHILS ABSOLUTE COUNT (BEAKER) (test 0.12 K/ L 0.04-0.36 fqkc=273) BASOPHILS ABSOLUTE COUNT (BEAKER) (test 0.05 K/ L 0.01-0.08 rbmd=012) IMMATURE GRANULOCYTES-RELATIVE PERCENT (BEAKER) 2 % 0-1 (test tqmz=8857) POCT-GLUCOSE [id number] 22:07:00 Test Item Value Reference Range Comments POC-GLUCOSE METER (BEAKER) 157 mg/dL 70-[address] [facility] [address] [facility] (test fpur=6485) [facility] [address] POCT-GLUCOSE [id number] 16:55:00 Test Item Value Reference Range Comments POC-GLUCOSE METER (BEAKER) 146 mg/dL 70-[address] 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 Right upper lobe endobronchial biopsy. B. Right [...] stains. BLOCK B1- TTF1, NAPSIN A, ER, KHX9Ywyhdrtsfqqdkskogchq technical testing was performed at [facility], Pathology Laboratory where it was developed [...] complexity clinical laboratory testing.FINE NEEDLE ASPIRATE BY [id number] 12 :41:00Medical Cytology Report Case: [id number] Authorizing Provider: Robert Tirado MD Collected: 03/04/2018 1023 Ordering Location: [address] Received: 03/04/2018 1244 Service Pathologist: Ben Vila MD Specimen: Lymph Node, Interlobar, Right, Station 11R LYMPH NODE, INTERLOBAR RIGHT, STATION 11R EBUS FNA BY CLINICIAN (CYTOSPINS OF ASPIRATE): - NEGATIVE FOR MALIGNANCY - LYMPHOCYTES PRESENT Signing Pathologist Direct Phone Line: [phone] signed by Ben Vila MD on 2017 at 12:41 PMPlease also see surgical pathology report [id number] and cytopathology reports [id number], 3646, 3647 and 3648. [id number] massLYMPH NODE, INTERLOBAR RIGHT, STATION 11R EBUS FNA40 mls in cytorich red; 2 cytospinsCollected: [id number]: [id number] interpretation of this case included the use of immunohistochemistry or special stains. Immunohistochemistry technical testing was performed at [facility], Pathology Laboratory where it was developed [...] certified under the Clinical Laboratory Improvement Amendments [id number] (CLIA-88) as qualified to perform high complexity clinical laboratory testing.[facility], Department of Pathology, [address] [place] [address], [facility], [facility] , [address] [place] [address], [facility]St[facility], [facility] of [facility], [address] [place] [address] , FARL NEEDLE ASPIRATE BY [id number] 12:40:00Medical Cytology Report Case: [id number] Authorizing Provider: Robert Tirado MD Collected: 03/04/2018 1008 Ordering Location: [address] Received: 03/04/2018 1244 Service Pathologist: Ben Vila MD Specimen: Lymph Node, Lower Paratracheal, Right, Station 4R LYMPH NODE, LOWER PARATRACHEAL, RIGHT, STATION 4R EBUS FNA BY CLINICIAN (CYTOSPINS AND CELL BLOCK OF ASPIRATE): - NEGATIVE FOR MALIGNANCY Signing Pathologist Direct Phone Line: Smears and cell block show good sampling of anthracotic lymph node without granuloma or neoplasm.Please also see surgical pathology report [id number] and cytopathology reports [id number], 3646, 3647 and 3649. [id number], [id number] massLYMPH NODE, LOWER PARATRACHEAL, RIGHT, STATION 4R EBUS FNA40 mls in cytorich red; 2 cytospins, cell blockCollected: [id number]: [id number] interpretation of this case included the use of immunohistochemistry or special stains. Immunohistochemistry technical testing was performed at [facility], Pathology Laboratory where it was developed [...] qualified to perform high complexity clinical laboratory testing.[facility], Department of Pathology, [address] [place] [address], [facility], [facility] of [facility], [address] [place] [address], [facility]St[facility], [facility] of [facility], [address] [place] [address], KFKY NEEDLE ASPIRATE BY [id number] 12:38: 00Medical Cytology Report Case: [id number] Authorizing Provider: Robert Tirado MD Collected : 03/04/2018 1002 Ordering Location: [address] Received: 03/04/2018 1244 Service Pathologist: Ben Vila MD Specimen: Lymph Node, Subcarinal, Station 7 LYMPH NODE, SUBCARINAL, STATION 7 EBUS FNA BY CLINICIAN (CYTOSPINS AND CELL BLOCK OF ASPIRATE): - NEGATIVE FOR MALIGNANCY Signing Pathologist Direct Phone Line: [phone] Smears and cell block show good sampling of anthracotic lymph nodewithout granuloma or neoplasm.Please also see surgical pathology report [id number] and cytopathology reports [id number], 3646, 3648 and 3649. [id number], [id number] massLYMPH NODE, SUBCARINAL, STATION 7 FNAPrepared cell block(A2) and 2 cytospins from 40 ml cytorich red fixative specimen Collected: [id number]: [id number] interpretation of this case included the use of immunohistochemistry or special stains.Immunohistochemistry technical testing was performed at [facility], Pathology Laboratory where it was developed [...] qualified to perform high complexity clinical laboratory testing.[facility], Department of Pathology, [address] [place] [address], [facility], [facility] of [facility], [address] [place] [address], [facility]St[facility], [facility] of Pathology, [address] [place] [address], BHOC NEEDLE ASPIRATE BY [id number] 05 12:35:00Medical Cytology Report Case: [id number] Authorizing Provider: Robert Tirado MD Collected: 03/04/2018 1001 Ordering Location: [address] Received: 03/04/2018 1244 Service Pathologist: Ben Vila MD Specimen: Lymph Node, Lower Paratracheal , Left, Station 4L LYMPH NODE, LOWER PARATRACHEAL, LEFT, STATION 4L, FNA BY CLINICIAN (CYTOSPINS OF ASPIRATE): - NEGATIVE FOR MALIGNANCY PREDOMINANTLY BRONCHIAL EPITHELIAL CELLS Signing Pathologist Direct Phone Line: [phone] signed by Ben Vila MD on 03/05/2018 at 12:35 PMPlease also see surgical pathology report [id number] and cytopathology reports [id number], 3647, 3648 and 3649. [id number] massLYMPH NODE, LOWER PARATRACHEAL, LEFT, STATION 4L FNAPrepared 2 cytospins from 40 ml cytorich red fixative sampleCollected: [id number]: [id number] interpretation of this case included the use of immunohistochemistry or special stains. Immunohistochemistry technical testing was performed at [facility], Pathology Laboratory where it was developed [...] qualified to perform high complexity clinical laboratory testing.[facility], Department of Pathology, [address] [place] [address], [facility], [facility], [address] [place] [address], Tel [facility]St[facility], [facility] of [facility]ology, [address] [place] [address], EZWV-GLUCOSE [id number] 12:34:00 Test Item Value Reference Range Comments POC-GLUCOSE METER (BEAKER) 119 mg/dL 70-110 TESTED AT [address] (test igkb=1777) [facility] [address] FINE NEEDLE ASPIRATE BY [id number] 12:34:00Medical Cytology Report Case: [id number] Authorizing Provider: Robert Tirado MD Collected: 03/04/2018 1001 Ordering Location: [address] Received: 1244 Service Pathologist: Ben Vila MD Specimen: Lymph Node, Interlobar, Left, Station 11L LYMPH NODE, INTERLOBAR, LEFT, STATION 11L, FNA BY CLINICIAN ( CYTOSPINS AND CELL BLOCK OF ASPIRATE): - NEGATIVE FOR MALIGNANCY Signing Pathologist Direct Phone Line: [phone] signed by Ben Vila MD on 03/05/2018 at 12:34 PMSmears and cell block show good sampling of anthracotic lymph node without granuloma or neoplasm.Please also see surgical pathology report [id number] and cytopathology reports [id number], 3647 , 3648 and 3649. [address], 35[address]Muzs massLYMPH NODE, INTERLOBAR, LEFT, [id number] FNAPrepared cell block(A2) and 2 cytospins from 45 ml cytorich red fixative sampleCollected: [id number]: [id number] interpretation of this case included the use of immunohistochemistry or special stains. Immunohistochemistry technical testing was performed at [facility], Pathology Laboratory where it was developed [...] qualified to perform high complexity clinical laboratory testing.[facility], Department of Pathology, [address] [place] [address], Tel [facility], [facility] of [facility]ology, [address] [place] [address], IktadlSt[facility], Department of Pathology, [address] [place] [address], Tel [phone]-SOYDZKI [id number] 08:25:00 Test Item Value Reference Range Comments POC-GLUCOSE METER (BEAKER) 114 mg/dL 70-110 TESTED AT [address] (test cuuv=5693) [facility] [address] BASIC METABOLIC [id number] 05:45:00 Test Item Value Reference Range Comments SODIUM (BEAKER) (test 136 meq/L 136-145 phfu=397) POTASSIUM (BEAKER) (test 4.5 meq/L 3.5-5.1 Specimen slightly pjzm=766) hemolyzed CHLORIDE (BEAKER) (test 104 meq/L 98-107 uorz=649) CO2 (BEAKER) (test 24 meq/L 22-29 cyff=039) BLOOD UREA NITROGEN 18 mg/dL 7-21 (BEAKER) (test sxzy=344) CREATININE (BEAKER) (test 0.72 mg/dL 0.57-1.25 Specimen slightly ykeg=218) hemolyzed GLUCOSE RANDOM (BEAKER) 126 mg/dL 70-105 (test vlyd=142) CALCIUM (BEAKER) (test 9.8 mg/dL 8.4-10.2 twff=937) EGFR (BEAKER) (test mL/min/1.73 sq m INSUFFICIENT CLINICAL DATA nfnf=6619) TO CALCULATE ESTIMATED GFR. CBC W/PLT COUNT & AUTO [id number] 05:42:00 Test Item Value Reference Range Comments WHITE BLOOD CELL COUNT (BEAKER) (test dqem=124) 22.5 K/ L 3.5-10.5 RED BLOOD CELL COUNT (BEAKER) (test lojg=660) 5.03 M/ L 3.93-5.22 HEMOGLOBIN (BEAKER) (test bhze=398) 12.6 GM/DL 11.2-15.7 HEMATOCRIT (BEAKER) (test xfqq=989) 40.7 % 34.1-44.9 MEAN CORPUSCULAR VOLUME (BEAKER) (test xtmt=086) 80.9 fL 79.4-94.8 MEAN CORPUSCULAR HEMOGLOBIN (BEAKER) (test 25.0 pg 25.6-32.2 lgfe=314) MEAN CORPUSCULAR HEMOGLOBIN CONC (BEAKER) (test 31.0 GM/DL 32.2-35.5 ghhd=924) RED CELL DISTRIBUTION WIDTH (BEAKER) (test 15.0 % 11.7-14.4 ukni=689) PLATELET COUNT (BEAKER) (test pfab=978) 543 K/CU MM 150-450 MEAN PLATELET VOLUME (BEAKER) (test rttt=201) 9.5 fL 9.4-12.3 NUCLEATED RED BLOOD CELLS (BEAKER) (test 0 /100 WBC 0-0 tutj=688) NEUTROPHILS RELATIVE PERCENT (BEAKER) (test 86 % phfc=219) LYMPHOCYTES RELATIVE PERCENT (BEAKER) (test 8 % cwgp=435) MONOCYTES RELATIVE PERCENT (BEAKER) (test 4 % tlwb=352) EOSINOPHILS RELATIVE PERCENT (BEAKER) (test 0 % uoqz=898) BASOPHILS RELATIVE PERCENT (BEAKER) (test 0 % wxhb=207) NEUTROPHILS ABSOLUTE COUNT (BEAKER) (test 19.38 K/ L 1.56-6.13 zgfv=374) LYMPHOCYTES ABSOLUTE COUNT (BEAKER) (test 1.81 K/ L 1.18-3.74 rjhy=855) MONOCYTES ABSOLUTE COUNT (BEAKER) (test 0.99 K/ L 0.24-0.36 krzf=469) EOSINOPHILS ABSOLUTE COUNT (BEAKER) (test 0.05 K/ L 0.04-0.36 bchd=077) BASOPHILS ABSOLUTE COUNT (BEAKER) (test 0.04 K/ L 0.01-0.08 fahc=207) IMMATURE GRANULOCYTES-RELATIVE PERCENT (BEAKER) 1 % 0-1 (test jsyo=1002) BLOOD [id number] 23:01:00 Test Item Value Reference Range Comments CULTURE (BEAKER) (test idwa=1852) No growth in 5 days POCT-GLUCOSE [id number] 20:32:00 Test Item Value Reference Range Comments POC-GLUCOSE METER (BEAKER) 122 mg/dL 70-110 TESTED AT [address] (test pazf=4733) [place] [address] POCT-GLUCOSE [id number] 17:53:00 Test Item Value Reference Range Comments POC-GLUCOSE METER (BEAKER) 199 mg/dL 70-110 TESTED AT [address] (test ljin=9962) [place] [address] EBUS FNA [id number] 14:00:00 Test Item Value Reference Range Comments CYTOLOGY RESULT POINTER (BEAKER) (test See Separate Report xdgm=1000) EBUS FNA [id number] 14:00:00 Test Item Value Reference Range Comments CYTOLOGY RESULT POINTER (BEAKER) (test See Separate Report wyqm=7132) EBUS FNA [id number] 14:00:00 Test Item Value Reference Range Comments CYTOLOGY RESULT POINTER (BEAKER) (test See Separate Report dtrz=1401) EBUS FNA [id number] 14:00:00 Test Item Value Reference Range Comments CYTOLOGY RESULT POINTER (BEAKER) (test See Separate Report ihsl=2421) EBUS FNA [id number] 14:00:00 Test Item Value Reference Range Comments CYTOLOGY RESULT POINTER (BEAKER) (test See Separate Report bzbr=7763) POCT-GLUCOSE [id number] 12:06:00 Test Item Value Reference Range Comments POC-GLUCOSE METER (BEAKER) 114 mg/dL 70-110 TESTED AT [address] (test swej=4590) [place] [address] BLOOD [id number] 10:00:00 Test Item Value Reference Range Comments CULTURE (BEAKER) (test awag=4170) No growth in 5 days POCT-GLUCOSE [id number] 08:22:00 Test Item Value Reference Range Comments POC-GLUCOSE METER (BEAKER) 120 mg/dL 70-110 TESTED AT [address] (test dusp=2849) [place] [address] [id number] 06:39:00 Test Item Value Reference Range Comments PARTIAL THROMBOPLASTIN TIME (BEAKER) (test 25.2 seconds 22.5-36.0 mkkg=671) PROTHROMBIN [id number] 06:38:00 Test Item Value Reference Range Comments PROTIME (BEAKER) (test lfpv=711) 13.6 seconds 11.7-14.7 INR (BEAKER) (test pqlw=181) 1.0 <=5.9 RECOMMENDED COUMADIN/WARFARIN INR THERAPY RANGESSTANDARD DOSE: 2.0 - 3.0 Includes: PROPHYLAXIS forvenous thrombosis, systemic embolization; TREATMENT for venous thrombosis and/or pulmonary embolus.HIGH RISK: Target INR is 2.5-3.5 for patients with mechanical heart valves.BASIC METABOLIC [id number] 06:38: 00 Test Item Value Reference Range Comments SODIUM (BEAKER) (test 136 meq/L 136-145 kdmo=131) POTASSIUM (BEAKER) (test 4.4 meq/L 3.5-5.1 gimm=724) CHLORIDE (BEAKER) (test 105 meq/L 98-107 oeqd=084) CO2 (BEAKER) (test 23 meq/L 22-29 cgaa=064) BLOOD UREA NITROGEN 19 mg/dL 7-21 (BEAKER) (test wcfw=449) CREATININE (BEAKER) (test 0.66 mg/dL 0.57-1.25 cmxk=693) GLUCOSE RANDOM (BEAKER) 120 mg/dL 70-105 (test icdv=996) CALCIUM (BEAKER) (test 9.9 mg/dL 8.4-10.2 hvsu=725) EGFR (BEAKER) (test mL/min/1.73 sq m INSUFFICIENT CLINICAL DATA pkfn=6949) TO CALCULATE ESTIMATED GFR. CBC W/PLT COUNT & AUTO [id number] 06:19:00 Test Item Value Reference Range Comments WHITE BLOOD CELL COUNT (BEAKER) (test qpgj=652) 22.5 K/ L 3.5-10.5 RED BLOOD CELL COUNT (BEAKER) (test jtld=391) 4.92 M/ L 3.93-5.22 HEMOGLOBIN (BEAKER) (test emgv=536) 12.4 GM/DL 11.2-15.7 HEMATOCRIT (BEAKER) (test vevp=778) 39.7 % 34.1-44.9 MEAN CORPUSCULAR VOLUME (BEAKER) (test tarw=896) 80.7 fL 79.4-94.8 MEAN CORPUSCULAR HEMOGLOBIN (BEAKER) (test 25.2 pg 25.6-32.2 dtap=788) MEAN CORPUSCULAR HEMOGLOBIN CONC (BEAKER) (test 31.2 GM/DL 32.2-35.5 gofu=194) RED CELL DISTRIBUTION WIDTH (BEAKER) (test 14.6 % 11.7-14.4 hoil=991) PLATELET COUNT (BEAKER) (test wavl=056) 570 K/CU MM 150-450 MEAN PLATELET VOLUME (BEAKER) (test dula=074) 9.0 fL 9.4-12.3 NUCLEATED RED BLOOD CELLS (BEAKER) (test 0 /100 WBC 0-0 vxjj=270) NEUTROPHILS RELATIVE PERCENT (BEAKER) (test 83 % xsxf=003) LYMPHOCYTES RELATIVE PERCENT (BEAKER) (test 11 % owoz=756) MONOCYTES RELATIVE PERCENT (BEAKER) (test 5 % xjmt=230) EOSINOPHILS RELATIVE PERCENT (BEAKER) (test 0 % huqq=247) BASOPHILS RELATIVE PERCENT (BEAKER) (test 0 % potq=168) NEUTROPHILS ABSOLUTE COUNT (BEAKER) (test 18.65 K/ L 1.56-6.13 loso=829) LYMPHOCYTES ABSOLUTE COUNT (BEAKER) (test 2.36 K/ L 1.18-3.74 bfzh=876) MONOCYTES ABSOLUTE COUNT (BEAKER) (test 1.01 K/ L 0.24-0.36 dcqx=536) EOSINOPHILS ABSOLUTE COUNT (BEAKER) (test 0.09 K/ L 0.04-0.36 svto=335) BASOPHILS ABSOLUTE COUNT (BEAKER) (test 0.07 K/ L 0.01-0.08 zawf=854) IMMATURE GRANULOCYTES-RELATIVE PERCENT (BEAKER) 2 % 0-1 (test aatx=2697) POCT-GLUCOSE [id number] 22:29:00 Test Item Value Reference Range Comments POC-GLUCOSE METER (BEAKER) 175 mg/dL 70-110 TESTED AT [place] [id number] [facility] (test eeft=9284) [facility] [address] BONE AND/OR JOINT IMAGING, WHOLE [id number] 15:34:00No histologic dx yet, but brain met with lung mass.FINAL REPORT PROCEDURE: BONE SCAN, WHOLE BODY CPT CODE: 35425 INDICATION: Right lung cancer with cerebellar metastasis [...] Verified Date/Time: 03/03/2018 15:34: 30 Reading Location: [address] Reading Room POCT-GLUCOSE [id number] 11:44:00 Test Item Value Reference Range Comments POC-GLUCOSE METER (BEAKER) 180 mg/dL 70-110 TESTED AT [address] (test qgmt=4813) [facility] [address] POCT-GLUCOSE [id number] 08:31:00 Test Item Value Reference Range Comments POC-GLUCOSE METER (BEAKER) 111 mg/dL 70-110 TESTED AT [address] (test twot=7853) [facility] [address] CBC W/PLT COUNT & AUTO [id number] 05:37:00 Test Item Value Reference Range Comments WHITE BLOOD CELL COUNT (BEAKER) (test xocp=980) 18.9 K/ L 3.5-10.5 RED BLOOD CELL COUNT (BEAKER) (test jvyd=644) 4.58 M/ L 3.93-5.22 HEMOGLOBIN (BEAKER) (test nbvp=160) 11.6 GM/DL 11.2-15.7 HEMATOCRIT (BEAKER) (test etwb=883) 36.7 % 34.1-44.9 MEAN CORPUSCULAR VOLUME (BEAKER) (test mdtw=585) 80.1 fL 79.4-94.8 MEAN CORPUSCULAR HEMOGLOBIN (BEAKER) (test 25.3 pg 25.6-32.2 apcn=626) MEAN CORPUSCULAR HEMOGLOBIN CONC (BEAKER) (test 31.6 GM/DL 32.2-35.5 huoo=801) RED CELL DISTRIBUTION WIDTH (BEAKER) (test 14.4 % 11.7-14.4 pbla=376) PLATELET COUNT (BEAKER) (test isvt=936) 505 K/CU MM 150-450 MEAN PLATELET VOLUME (BEAKER) (test ybuq=718) 9.1 fL 9.4-12.3 NUCLEATED RED BLOOD CELLS (BEAKER) (test 0 /100 WBC 0-0 makw=165) NEUTROPHILS RELATIVE PERCENT (BEAKER) (test 82 % wqad=550) LYMPHOCYTES RELATIVE PERCENT (BEAKER) (test 11 % halt=492) MONOCYTES RELATIVE PERCENT (BEAKER) (test 5 % rhsg=655) EOSINOPHILS RELATIVE PERCENT (BEAKER) (test 1 % rxhc=171) BASOPHILS RELATIVE PERCENT (BEAKER) (test 0 % gobl=790) NEUTROPHILS ABSOLUTE COUNT (BEAKER) (test 15.57 K/ L 1.56-6.13 eppy=647) LYMPHOCYTES ABSOLUTE COUNT (BEAKER) (test 2.05 K/ L 1.18-3.74 qgdr=146) MONOCYTES ABSOLUTE COUNT (BEAKER) (test 0.92 K/ L 0.24-0.36 vucn=311) EOSINOPHILS ABSOLUTE COUNT (BEAKER) (test 0.13 K/ L 0.04-0.36 spps=921) BASOPHILS ABSOLUTE COUNT (BEAKER) (test 0.01 K/ L 0.01-0.08 rpsj=679) IMMATURE GRANULOCYTES-RELATIVE PERCENT (BEAKER) 1 % 0-1 (test vmdm=3616) POCT-GLUCOSE [id number] 21:27:00 Test Item Value Reference Range Comments POC-GLUCOSE METER (BEAKER) 202 mg/dL 70-110 TESTED AT [address] (test mfmy=9232) [place] [address] POCT-GLUCOSE [id number] 13:34:00 Test Item Value Reference Range Comments POC-GLUCOSE METER (BEAKER) 94 mg/dL 70-110 TESTED AT [address] (test ahjt=6463) [place] [address] POCT-GLUCOSE [id number] 08:43:00 Test Item Value Reference Range Comments POC-GLUCOSE METER (BEAKER) 118 mg/dL 70-110 TESTED AT [address] (test pjnj=9096) [place] [address] URINALYSIS W/ REFLEX URINE [id number] 07:40:00 Test Item Value Reference Range Comments COLOR (BEAKER) (test jxck=832) Light Yellow CLARITY (BEAKER) (test nmgu=745) Hazy SPECIFIC GRAVITY UA (BEAKER) (test stxl=750) 1.019 1.001-1.035 PH UA (BEAKER) (test gvai=016) 7.0 5.0-8.0 PROTEIN UA (BEAKER) (test trwn=798) Negative Negative GLUCOSE UA (BEAKER) (test wjkz=732) Negative Negative KETONES UA (BEAKER) (test lidf=941) Negative Negative BILIRUBIN UA (BEAKER) (test fuih=353) Negative Negative BLOOD UA (BEAKER) (test tkgz=351) Negative Negative NITRITE UA (BEAKER) (test cnnl=170) Negative Negative LEUKOCYTE ESTERASE UA (BEAKER) (test xfyf=359) Negative Negative UROBILINOGEN UA (BEAKER) (test uzqo=460) 0.2 mg/dL 0.2-1.0 RBC UA (BEAKER) (test ijhj=973) 2 /HPF WBC UA (BEAKER) (test blst=441) 0 /HPF MUCUS (BEAKER) (test xgdr=4540) Rare SQUAMOUS EPITHELIAL (BEAKER) (test flht=415) < /HPF SOURCE(BEAKER) (test hefv=3466) BASIC METABOLIC [id number] 07:17:00 Test Item Value Reference Range Comments SODIUM (BEAKER) (test 136 meq/L 136-145 oful=975) POTASSIUM (BEAKER) (test 4.1 meq/L 3.5-5.1 jcqh=542) CHLORIDE (BEAKER) (test 106 meq/L 98-107 dlar=705) CO2 (BEAKER) (test 23 meq/L 22-29 qcwh=294) BLOOD UREA NITROGEN 21 mg/dL 7-21 (BEAKER) (test pduh=431) CREATININE (BEAKER) (test 0.76 mg/dL 0.57-1.25 kmbd=620) GLUCOSE RANDOM (BEAKER) 115 mg/dL 70-105 (test dvwz=426) CALCIUM (BEAKER) (test 9.7 mg/dL 8.4-10.2 gbqt=298) EGFR (BEAKER) (test mL/min/1.73 sq m INSUFFICIENT CLINICAL DATA dbqf=1112) TO CALCULATE ESTIMATED GFR. CBC W/PLT COUNT & AUTO [id number] 06:15:00 Test Item Value Reference Range Comments WHITE BLOOD CELL COUNT (BEAKER) (test htcy=816) 18.3 K/ L 3.5-10.5 RED BLOOD CELL COUNT (BEAKER) (test vlfy=254) 4.56 M/ L 3.93-5.22 HEMOGLOBIN (BEAKER) (test lsoa=674) 11.3 GM/DL 11.2-15.7 HEMATOCRIT (BEAKER) (test ysca=242) 36.2 % 34.1-44.9 MEAN CORPUSCULAR VOLUME (BEAKER) (test stsq=100) 79.4 fL 79.4-94.8 MEAN CORPUSCULAR HEMOGLOBIN (BEAKER) (test 24.8 pg 25.6-32.2 lqpy=002) MEAN CORPUSCULAR HEMOGLOBIN CONC (BEAKER) (test 31.2 GM/DL 32.2-35.5 vlmj=480) RED CELL DISTRIBUTION WIDTH (BEAKER) (test 14.5 % 11.7-14.4 txbw=703) PLATELET COUNT (BEAKER) (test hwke=796) 529 K/CU MM 150-450 MEAN PLATELET VOLUME (BEAKER) (test zrvv=428) 8.9 fL 9.4-12.3 NUCLEATED RED BLOOD CELLS (BEAKER) (test 0 /100 WBC 0-0 lyva=126) NEUTROPHILS RELATIVE PERCENT (BEAKER) (test 85 % ovzy=633) LYMPHOCYTES RELATIVE PERCENT (BEAKER) (test 9 % emwt=757) MONOCYTES RELATIVE PERCENT (BEAKER) (test 5 % vftr=988) EOSINOPHILS RELATIVE PERCENT (BEAKER) (test 0 % knqo=629) BASOPHILS RELATIVE PERCENT (BEAKER) (test 0 % ddww=537) NEUTROPHILS ABSOLUTE COUNT (BEAKER) (test 15.60 K/ L 1.56-6.13 mcpn=944) LYMPHOCYTES ABSOLUTE COUNT (BEAKER) (test 1.67 K/ L 1.18-3.74 msww=185) MONOCYTES ABSOLUTE COUNT (BEAKER) (test 0.84 K/ L 0.24-0.36 lpus=073) EOSINOPHILS ABSOLUTE COUNT (BEAKER) (test 0.04 K/ L 0.04-0.36 upag=816) BASOPHILS ABSOLUTE COUNT (BEAKER) (test 0.03 K/ L 0.01-0.08 aeve=192) IMMATURE GRANULOCYTES-RELATIVE PERCENT (BEAKER) 1 % 0-1 (test bocx=0320) POCT-GLUCOSE [id number] 21:08:00 Test Item Value Reference Range Comments POC-GLUCOSE METER (BEAKER) 175 mg/dL 70-[address] [facility] [address] [facility] (test hswh=3670) [facility] [address] POCT-GLUCOSE [id number] 17:48:00 Test Item Value Reference Range Comments POC-GLUCOSE METER (BEAKER) 114 mg/dL 70-110 TESTED AT [address] (test nrls=4778) [facility] [address] POCT-GLUCOSE [id number] 12:27:00 Test Item Value Reference Range Comments POC-GLUCOSE METER (BEAKER) 119 mg/dL 70-110 TESTED AT [address] (test ucsh=7482) [facility] [address] BASIC METABOLIC [id number] 08:12:00 Test Item Value Reference Range Comments SODIUM (BEAKER) (test 136 meq/L 136-145 ufqc=929) POTASSIUM (BEAKER) (test 4.1 meq/L 3.5-5.1 egsl=328) CHLORIDE (BEAKER) (test 105 meq/L 98-107 hybd=776) CO2 (BEAKER) (test 22 meq/L 22-29 gghn=715) BLOOD UREA NITROGEN 19 mg/dL 7-21 (BEAKER) (test jgmw=471) CREATININE (BEAKER) (test 0.65 mg/dL 0.57-1.25 lnln=438) GLUCOSE RANDOM (BEAKER) 110 mg/dL 70-105 (test jmhs=197) CALCIUM (BEAKER) (test 9.8 mg/dL 8.4-10.2 qmbf=033) EGFR (BEAKER) (test mL/min/1.73 sq m INSUFFICIENT CLINICAL DATA otfj=5154) TO CALCULATE ESTIMATED GFR. CBC W/PLT COUNT & AUTO [id number] 07:21:00 Test Item Value Reference Range Comments WHITE BLOOD CELL COUNT (BEAKER) (test hhlz=997) 20.8 K/ L 3.5-10.5 RED BLOOD CELL COUNT (BEAKER) (test lzmu=953) 4.46 M/ L 3.93-5.22 HEMOGLOBIN (BEAKER) (test elcw=077) 11.2 GM/DL 11.2-15.7 HEMATOCRIT (BEAKER) (test fgaj=590) 35.1 % 34.1-44.9 MEAN CORPUSCULAR VOLUME (BEAKER) (test nixr=690) 78.7 fL 79.4-94.8 MEAN CORPUSCULAR HEMOGLOBIN (BEAKER) (test 25.1 pg 25.6-32.2 xpca=926) MEAN CORPUSCULAR HEMOGLOBIN CONC (BEAKER) (test 31.9 GM/DL 32.2-35.5 jixc=523) RED CELL DISTRIBUTION WIDTH (BEAKER) (test 14.2 % 11.7-14.4 eymy=272) PLATELET COUNT (BEAKER) (test rmed=669) 549 K/CU MM 150-450 MEAN PLATELET VOLUME (BEAKER) (test fzjl=672) 9.0 fL 9.4-12.3 NUCLEATED RED BLOOD CELLS (BEAKER) (test 0 /100 WBC 0-0 buqm=479) NEUTROPHILS RELATIVE PERCENT (BEAKER) (test 86 % lepw=184) LYMPHOCYTES RELATIVE PERCENT (BEAKER) (test 9 % eime=339) MONOCYTES RELATIVE PERCENT (BEAKER) (test 4 % qgww=778) EOSINOPHILS RELATIVE PERCENT (BEAKER) (test 0 % miwj=395) BASOPHILS RELATIVE PERCENT (BEAKER) (test 0 % egwq=078) NEUTROPHILS ABSOLUTE COUNT (BEAKER) (test 17.91 K/ L 1.56-6.13 qmnf=714) LYMPHOCYTES ABSOLUTE COUNT (BEAKER) (test 1.79 K/ L 1.18-3.74 xkqe=692) MONOCYTES ABSOLUTE COUNT (BEAKER) (test 0.81 K/ L 0.24-0.36 ileq=120) EOSINOPHILS ABSOLUTE COUNT (BEAKER) (test 0.03 K/ L 0.04-0.36 bnxl=952) BASOPHILS ABSOLUTE COUNT (BEAKER) (test 0.04 K/ L 0.01-0.08 rtrm=783) IMMATURE GRANULOCYTES-RELATIVE PERCENT (BEAKER) 1 % 0-1 (test rcqy=9250) POCT-GLUCOSE [id number] 06:08:00 Test Item Value Reference Range Comments POC-GLUCOSE METER (BEAKER) 113 mg/dL 70-[address] [facility] [address] [place] (test wfoc=8108) [facility] [address] POCT-GLUCOSE [id number] 18:58:00 Test Item Value Reference Range Comments POC-GLUCOSE METER (BEAKER) 117 mg/dL 70-[address] [facility] [address] (test gkzn=0703) [facility] [address] CT, CHEST, WITH [id number] 15:20:00FINAL REPORT CT of the Chest, abdomen [...] Verified Date/Time: 02/28/2018 15:20: 36 Reading Location: [facility] C013Y CT Body Reading Room CT, [id number] 15:20: 00FINAL REPORT CT of the Chest, [...] MDRort Verified Date/Time: 02/28/2018 15:20:36 Reading Location: [facility] B1 C013Y CT Body Reading Room POCT-GLUCOSE [id number] 08:55:00 Test Item Value Reference Range Comments POC-GLUCOSE METER (NEENA) 125 mg/dL 70-[address] [facility] [address] [facility] (test lggy=1908) [facility] [address] MR, BRAIN, [id number] 07:59:00STEALTH protocolFINAL REPORT MRI Brain with and [...] Verified Date/Time : 02/28/2018 07:59:07 Reading Location: [facility] C0[facility] Neuro Reading Room POCT- GLUCOSE [id number] 06:39:00 Test Item Value Reference Range Comments POC-GLUCOSE METER (BEAKER) 150 mg/dL 70-[address] [facility] [address] [facility] (test bcwk=7728) [facility] [address] BASIC METABOLIC [id number] 05:51:00 Test Item Value Reference Range Comments SODIUM (BEAKER) (test 137 meq/L 136-145 gclw=785) POTASSIUM (BEAKER) (test 3.8 meq/L 3.5-5.1 glpp=938) CHLORIDE (BEAKER) (test 104 meq/L 98-107 dwhn=955) CO2 (BEAKER) (test 24 meq/L 22-29 olcc=235) BLOOD UREA NITROGEN 13 mg/dL 7-21 (BEAKER) (test gxxf=501) CREATININE (BEAKER) (test 0.72 mg/dL 0.57-1.25 cvfw=564) GLUCOSE RANDOM (BEAKER) 131 mg/dL 70-105 (test jiea=082) CALCIUM (BEAKER) (test 9.9 mg/dL 8.4-10.2 efcb=156) EGFR (BEAKER) (test mL/min/1.73 sq m INSUFFICIENT CLINICAL DATA pclc=3957) TO CALCULATE ESTIMATED GFR. CBC W/PLT COUNT & AUTO [id number] 04:09:00 Test Item Value Reference Range Comments WHITE BLOOD CELL COUNT (BEAKER) (test sooj=088) 18.5 K/ L 3.5-10.5 RED BLOOD CELL COUNT (BEAKER) (test slez=362) 4.50 M/ L 3.93-5.22 HEMOGLOBIN (BEAKER) (test bjtx=552) 11.2 GM/DL 11.2-15.7 HEMATOCRIT (BEAKER) (test lyyd=439) 35.7 % 34.1-44.9 MEAN CORPUSCULAR VOLUME (BEAKER) (test fhsw=936) 79.3 fL 79.4-94.8 MEAN CORPUSCULAR HEMOGLOBIN (BEAKER) (test 24.9 pg 25.6-32.2 efuw=947) MEAN CORPUSCULAR HEMOGLOBIN CONC (BEAKER) (test 31.4 GM/DL 32.2-35.5 bfez=709) RED CELL DISTRIBUTION WIDTH (BEAKER) (test 14.0 % 11.7-14.4 pypt=485) PLATELET COUNT (BEAKER) (test hxmm=681) 590 K/CU MM 150-450 MEAN PLATELET VOLUME (BEAKER) (test saxb=966) 9.2 fL 9.4-12.3 NUCLEATED RED BLOOD CELLS (BEAKER) (test 0 /100 WBC 0-0 shyd=264) NEUTROPHILS RELATIVE PERCENT (BEAKER) (test 90 % ecsd=693) LYMPHOCYTES RELATIVE PERCENT (BEAKER) (test 7 % zbrf=540) MONOCYTES RELATIVE PERCENT (BEAKER) (test 2 % ijts=451) EOSINOPHILS RELATIVE PERCENT (BEAKER) (test 0 % olem=005) BASOPHILS RELATIVE PERCENT (BEAKER) (test 0 % hcqk=167) NEUTROPHILS ABSOLUTE COUNT (BEAKER) (test 16.64 K/ L 1.56-6.13 cjqc=243) LYMPHOCYTES ABSOLUTE COUNT (BEAKER) (test 1.26 K/ L 1.18-3.74 eaqz=460) MONOCYTES ABSOLUTE COUNT (BEAKER) (test 0.44 K/ L 0.24-0.36 ttyq=981) EOSINOPHILS ABSOLUTE COUNT (BEAKER) (test 0.01 K/ L 0.04-0.36 ufjc=538) BASOPHILS ABSOLUTE COUNT (BEAKER) (test 0.03 K/ L 0.01-0.08 exsn=038) IMMATURE GRANULOCYTES-RELATIVE PERCENT (BEAKER) 1 % 0-1 (test jrrl=7425) POCT-GLUCOSE [id number] 00:17:00 Test Item Value Reference Range Comments POC-GLUCOSE METER (BEAKER) 122 mg/dL 70-110 TESTED AT [address] (test alqb=9864) [place] [address] POCT-GLUCOSE [id number] 18:35:00 Test Item Value Reference Range Comments POC-GLUCOSE METER (BEAKER) 134 mg/dL 70-110 TESTED AT [address] (test vsax=1209) [place] [address] POCT-GLUCOSE [id number] 12:10:00 Test Item Value Reference Range Comments POC-GLUCOSE METER (BEAKER) 146 mg/dL 70-110 TESTED AT [address] (test hmlk=8448) [place] [address] [id number] 07:56:00 Test Item Value Reference Range Comments PROCALCITONIN (BEAKER) (test plxq=9095) < ng/mL <0.05 SEPSIS RISK (ng/mL)Low: 0.05-0.50Intermediate: 0.51-2.00High: & gt;=2.01LACTATE DEHYDROGENASE (LDH)2018-02-27 06:52:00 Test Item Value Reference Range Comments LACTATE DEHYDROGENASE (BEAKER) (test esjr=877) 146 U/L 125-220 C-REACTIVE [id number] 06:52:00 Test Item Value Reference Range Comments C-REACTIVE PROTEIN (BEAKER) (test budm=170) 8.22 mg/dL 0.00-0.50 LACTIC ACID, ARTERIAL, WHOLE [id number] 06:01:00 Test Item Value Reference Range Comments LACTATE BLOOD ARTERIAL (2) (BEAKER) (test 1.0 mmol/L 0.5-2.2 abfe=7918) BASIC METABOLIC [id number] 05:52:00 Test Item Value Reference Range Comments SODIUM (BEAKER) (test 137 meq/L 136-145 tblc=759) POTASSIUM (BEAKER) (test 4.2 meq/L 3.5-5.1 Specimen slightly vnqf=851) hemolyzed CHLORIDE (BEAKER) (test 105 meq/L 98-107 zhre=659) CO2 (BEAKER) (test 25 meq/L 22-29 quig=931) BLOOD UREA NITROGEN 13 mg/dL 7-21 (BEAKER) (test fqdx=567) CREATININE (BEAKER) (test 0.74 mg/dL 0.57-1.25 Specimen slightly dndq=378) hemolyzed GLUCOSE RANDOM (BEAKER) 93 mg/dL 70-105 (test htxr=982) CALCIUM (BEAKER) (test 9.4 mg/dL 8.4-10.2 bczz=936) EGFR (BEAKER) (test mL/min/1.73 sq m INSUFFICIENT CLINICAL DATA kalp=6066) TO CALCULATE ESTIMATED GFR. TROPONIN [id number] 05:48:00 Test Item Value Reference Range Comments TROPONIN I (BEAKER) (test ymbv=747) < ng/mL 0.00-0.03 [id number] 05:43:00 Test Item Value Reference Range Comments MAGNESIUM (BEAKER) (test 2.1 mg/dL 1.6-2.6 Specimen slightly hemolyzed sofa=650) [id number] 05:43:00 Test Item Value Reference Range Comments PHOSPHORUS (BEAKER) (test 4.1 mg/dL 2.3-4.7 Specimen slightly hemolyzed dsqc=434) CBC W/PLT COUNT & AUTO [id number] 05:34:00 Test Item Value Reference Range Comments WHITE BLOOD CELL COUNT (BEAKER) (test hiho=766) 13.1 K/ L 3.5-10.5 RED BLOOD CELL COUNT (BEAKER) (test qoku=394) 4.42 M/ L 3.93-5.22 HEMOGLOBIN (BEAKER) (test ueiz=767) 11.2 GM/DL 11.2-15.7 HEMATOCRIT (BEAKER) (test gapt=058) 35.7 % 34.1-44.9 MEAN CORPUSCULAR VOLUME (BEAKER) (test bgzg=738) 80.8 fL 79.4-94.8 MEAN CORPUSCULAR HEMOGLOBIN (BEAKER) (test 25.3 pg 25.6-32.2 nkef=788) MEAN CORPUSCULAR HEMOGLOBIN CONC (BEAKER) (test 31.4 GM/DL 32.2-35.5 owwl=590) RED CELL DISTRIBUTION WIDTH (BEAKER) (test 14.2 % 11.7-14.4 ggar=656) PLATELET COUNT (BEAKER) (test nqgm=457) 490 K/CU MM 150-450 MEAN PLATELET VOLUME (BEAKER) (test hyrk=375) 9.0 fL 9.4-12.3 NUCLEATED RED BLOOD CELLS (BEAKER) (test 0 /100 WBC 0-0 xcdt=347) NEUTROPHILS RELATIVE PERCENT (BEAKER) (test 63 % jghk=835) LYMPHOCYTES RELATIVE PERCENT (BEAKER) (test 25 % dzzy=874) MONOCYTES RELATIVE PERCENT (BEAKER) (test 8 % jifm=126) EOSINOPHILS RELATIVE PERCENT (BEAKER) (test 4 % rmiy=074) BASOPHILS RELATIVE PERCENT (BEAKER) (test 1 % dpwy=902) NEUTROPHILS ABSOLUTE COUNT (BEAKER) (test 8.20 K/ L 1.56-6.13 qwyy=975) LYMPHOCYTES ABSOLUTE COUNT (BEAKER) (test 3.22 K/ L 1.18-3.74 iqkf=351) MONOCYTES ABSOLUTE COUNT (BEAKER) (test 0.99 K/ L 0.24-0.36 eqfj=668) EOSINOPHILS ABSOLUTE COUNT (BEAKER) (test 0.57 K/ L 0.04-0.36 kgrc=433) BASOPHILS ABSOLUTE COUNT (BEAKER) (test 0.08 K/ L 0.01-0.08 kedl=545) IMMATURE GRANULOCYTES-RELATIVE PERCENT (BEAKER) 1 % 0-1 (test bctm=8091) POCT-GLUCOSE [id number] 05:32:00 Test Item Value Reference Range Comments POC-GLUCOSE METER (BEAKER) 118 mg/dL 70-[address] [facility] [address] [facility] (test acyv=8175) [facility] [id number] 05:20:00 Test Item Value Reference Range Comments PROTIME (BEAKER) (test vwso=310) 13.7 seconds 11.7-14.7 INR (BEAKER) (test vjpp=189) 1.1 <=5.9 PARTIAL THROMBOPLASTIN TIME (BEAKER) (test 26.4 seconds 22.5-36.0 oacz=017) RECOMMENDED COUMADIN/WARFARIN INR THERAPY RANGESSTANDARD DOSE: 2.0 - 3.0 Includes: PROPHYLAXIS forvenous thrombosis, systemic embolization; TREATMENT for venous thrombosis and/or pulmonary embolus.HIGH RISK: Target INR is 2.5-3.5 for patients with mechanical heart valves.PROTHROMBIN [id number] 05:19: 00 Test Item Value Reference Range Comments PROTIME (BEAKER) (test ybly=859) 13.7 seconds 11.7-14.7 INR (BEAKER) (test nqjq=745) 1.1 <=5.9 RECOMMENDED COUMADIN/WARFARIN INR THERAPY RANGESSTANDARD DOSE: 2.0 - 3.0 Includes: PROPHYLAXIS forvenous thrombosis, systemic embolization; TREATMENT for venous thrombosis and/or pulmonary embolus.HIGH RISK: Target INR is 2.5-3.5 for patients with mechanical heart valves.
[2018-07-27] MEDS ORDERED: FLUORESCEIN SODIUM 1 MG/WRAP ONE (08:59)
[2018-07-27] MEDS ORDERED: TETRACAINE HCL 0.5% 4ML OPTH ONE (08:59)
--- NOTE | 2018-07-27 09:16 | ER ---
Nurse's Notes [facility] Name: Albania Alfaro Age: 58 yrs Sex: Female : 1960 Arrival Date: 07/27/2018 Time: 08:28 Bed 7 Private MD: Diagnosis: Zoster [herpes zoster] Presentation: 07/27 08:41 Presenting complaint: Patient states: LEFT FACE PAIN WITH SUB-Q BUMPS, PAIN RADIATING bp TO LEFT EAR AND NECK. PT SEEN FOR SAME 1.5 WK AGO, DID NOT TAKE PRESCRIBED STEROIDS. REFERRED TO ER BY PCP 2/2 BRAIN TUMOR RESECTION 03/06. Transition of care: patient was not received from another setting of care. Onset of symptoms is unknown. Risk Assessment: Do you want to hurt yourself or someone else? Patient reports no desire to harm self or others. Initial Sepsis Screen: Does the patient meet any 2 criteria? No. Patient's initial sepsis screen is negative. Does the patient have a suspected source of infection? No. Patient's initial sepsis screen is negative. Care prior to arrival: None. 08:41 Method Of Arrival: Ambulatory bp 08:41 Acuity: AILYN 3 bp Triage Assessment: 08:44 Headache History: The patient has had previous headaches and this one is similar to bp previous episodes. General: Appears in no apparent distress. uncomfortable, obese, Behavior is cooperative, appropriate for age, anxious. Pain: Complains of pain in head Pain currently is 8 out of 10 on a pain scale. Pain began 1.5 WK Also complains of photophobia. EENT: Eyes are tearing on left eye. Neuro: Level of Consciousness is awake, alert, obeys commands, Oriented to person, place, time, situation, Appropriate for age. Cardiovascular: No deficits noted. Respiratory: Airway is patent Respiratory effort is even, unlabored, Respiratory pattern is regular, symmetrical. GI: No signs and/or symptoms were reported involving the gastrointestinal system. : No signs and/or symptoms were reported regarding the genitourinary system. Derm: No deficits noted. Musculoskeletal: Circulation, motion, and sensation intact. Range of motion: intact in all extremities. Historical: - Allergies: 08:44 Erythromycin; bp - Home Meds: 08:44 None [Active]; bp - PMHx: 08:44 Diverticulitis; Vertigo; Cancer; bp - Immunization history:: Adult Immunizations up to date. - Social history:: Smoking status: Patient/guardian denies using tobacco. - Ebola Screening: : Patient negative for fever greater than or equal to 101.5 degrees Fahrenheit, and additional compatible Ebola Virus Disease symptoms Patient denies exposure to infectious person Patient denies travel to an Ebola-affected area in the 21 days before illness onset No symptoms or risks identified at this time. - Family history:: not pertinent. - Hospitalizations: : No recent hospitalization is reported. Screenin:50 Abuse screen: Denies threats or abuse. Denies injuries from another. Nutritional bp screening: No deficits noted. Tuberculosis screening: No symptoms or risk factors identified. Fall Risk None identified. Assessment: 08:49 General: SEE TRIAGE NOTE. bp 09:24 Reassessment: PT D/C HOME AMBULATORY, DX WITH ZOSTER. bp Vital Signs: 08:48 BP 145 / 73; Pulse 80; Resp 16; Temp 98.8; Pulse Ox 98% ; Weight 75.75 kg; Height 5 ft. bp 4 in. (162.56 cm); 09:11 BP 118 / 60; Pulse 75; Resp 16; Pulse Ox 96% ; bp 08:48 Body Mass Index 28.67 (75.75 kg, 162.56 cm) bp Elizabeth Coma Score: 09:11 Eye Response: spontaneous(4). Verbal Response: oriented(5). Motor Response: obeys rn commands(6). Total: 15. ED Course: 08:28 Patient arrived in ED. as 08:30 Han Evangelista, KRISTOPHER is Primary Nurse. bp 08:33 Sheldon Tran MD is Attending Physician. rn 08:44 Triage completed. bp 08:49 Arm band placed on. bp 08:50 Patient has correct armband on for positive identification. Bed in low position. Call bp light in reach. Side rails up X2. 09:24 No provider procedures requiring assistance completed. Patient did not have IV access bp during this emergency room visit. Administered Medications: 08:52 Drug: Fluorescein Strip 1 strip Route: Ophthalmic; Site: left eye; bp 08:52 Drug: Tetracaine Drops 0.5 % 1 drops Route: Ophthalmic; Site: left eye; bp 09:08 Drug: Acyclovir 800 mg Route: PO; hj 09:25 Follow up: Response: No adverse reaction bp 09:08 Drug: SOLU-Medrol 125 mg Route: IM; Site: right deltoid; 09:26 Follow up: Response: No adverse reaction bp Outcome: 09:15 Discharge ordered by . rn 09:24 Discharged to home ambulatory. bp 09:24 Condition: stable 09:24 Discharge instructions given to patient, Instructed on discharge instructions, follow up and referral plans. medication usage, Demonstrated understanding of instructions, follow-up care, medications, Prescriptions given X 2. 09:26 Patient left the ED. bp Signatures: Azra Jenkins Roman, MD MD rn Joaquin, Henry, RN RN hj Peltier, Brian, RN RN bp
--- NOTE | 2018-07-27 09:16 | EDPHYS ---
Physician Documentation [facility] Name: Albania Alfaro Age: 58 yrs Sex: Female : 1960 Arrival Date: 07/27/2018 Time: 08:28 Bed 7 Private MD: ED Physician Sheldon Tran HPI: 07/27 09:11 This 58 yrs old Female presents to ER via Ambulatory with complaints of rn Headache, Eye Swelling, Neck Pain, <24hrs Old. 09:11 The patient complains of pain to the forehead and left eye. The patient describes the rn headache as aching. Onset: The symptoms/episode began/occurred 1 week(s) ago. Severity of symptoms: At its worst the pain was mild, in the emergency department the pain is unchanged. The patient has experienced a previous episode. The patient has been recently seen at the [facility] Emergency Department. Seen by me for earlier symptoms, had negative ct head to rule out metastases, at that time had skin sensitivity, I prescribed steroids which she did not fill for nerve irritation. NOw presents with rash to left forehead and watery eye. No vision loss or changes. . Historical: - Allergies: 08:44 Erythromycin; bp - Home Meds: 08:44 None [Active]; bp - PMHx: 08:44 Diverticulitis; Vertigo; Cancer; bp - Immunization history:: Adult Immunizations up to date. - Social history:: Smoking status: Patient/guardian denies using tobacco. - Ebola Screening: : Patient negative for fever greater than or equal to 101.5 degrees Fahrenheit, and additional compatible Ebola Virus Disease symptoms Patient denies exposure to infectious person Patient denies travel to an Ebola-affected area in the 21 days before illness onset No symptoms or risks identified at this time. - Family history:: not pertinent. - Hospitalizations: : No recent hospitalization is reported. ROS: 09:11 Constitutional: Negative for fever, chills, and weight loss, Eyes: + left watery eye furnace feeder: Negative for injury, pain, and discharge, Neck: Negative for injury, pain, and swelling, Cardiovascular: Negative for chest pain, palpitations, and edema, Respiratory: Negative for shortness of breath, cough, wheezing, and pleuritic chest pain, Abdomen/GI: Negative for abdominal pain, nausea, vomiting, diarrhea, and constipation, MS/Extremity: Negative for injury and deformity, Skin: + rash to left forehead Neuro: + mild headache, no weakness/numbness Exam: 09:11 Constitutional: This is a well developed, well nourished patient who is awake, alert, rn and in no acute distress. Head/Face: Normocephalic, atraumatic. Eyes: Pupils equal round and reactive to light, extra-ocular motions intact. + mild periorbital swelling of left eye with clear discharge, no purulence, no hyphema or hypopyon, no dendritic lesions or ulcerations/fluorescein uptake noted. ENT: + left forehead erythematous lesions that do not cross midline in V1 distribution. Neck: Trachea midline, no thyromegaly or masses palpated, and no cervical lymphadenopathy. Supple, full range of motion without nuchal rigidity, or vertebral point tenderness. No Meningismus. + left posterior auricular LAD. Neuro: Awake and alert, GCS 15, oriented to person, place, time, and situation. Cranial nerves II-XII grossly intact. Motor strength 5/5 in all extremities. Sensory grossly intact. Cerebellar exam normal. Normal gait. Vital Signs: 08:48 BP 145 / 73; Pulse 80; Resp 16; Temp 98.8; Pulse Ox 98% ; Weight 75.75 kg; Height 5 ft. bp 4 in. (162.56 cm); 09:11 BP 118 / 60; Pulse 75; Resp 16; Pulse Ox 96% ; bp 08:48 Body Mass Index 28.67 (75.75 kg, 162.56 cm) bp Elizabeth Coma Score: 09:11 Eye Response: spontaneous(4). Verbal Response: oriented(5). Motor Response: obeys rn commands(6). Total: 15. MDM: 08:33 Patient medically screened. rn 09:11 Differential diagnosis: herpes zoster. Data reviewed: vital signs, nurses notes, old rn medical records, and as a result, I will discharge patient. Counseling: I had a detailed discussion with the patient and/or guardian regarding: the historical points, exam findings, and any diagnostic results supporting the discharge/admit diagnosis, the need for outpatient follow up, to return to the emergency department if symptoms worsen or persist or if there are any questions or concerns that arise at home. Special discussion: I discussed with the patient/guardian in detail that at this point there is no indication for admission to the hospital. It is understood, however, that if the symptoms persist or worsen the patient needs to return immediately for re-evaluation. Based on the history and exam findings, there is no indication for further emergent testing or inpatient evaluation. I discussed with the patient/guardian the need to see the opthamologist for further evaluation of the symptoms. Administered Medications: 08:52 Drug: Fluorescein Strip 1 strip Route: Ophthalmic; Site: left eye; bp 08:52 Drug: Tetracaine Drops 0.5 % 1 drops Route: Ophthalmic; Site: left eye; bp 09:08 Drug: Acyclovir 800 mg Route: PO; hj 09:25 Follow up: Response: No adverse reaction bp : Drug: SOLU-Medrol 125 mg Route: IM; Site: right deltoid; : Follow up: Response: No adverse reaction bp Disposition: 07/27/18 09:15 Discharged to Home. Impression: Zoster [herpes zoster]. - Condition is Stable. - Discharge Instructions: Shingles. - Prescriptions for Prednisone 20 mg Oral Tablet - take 3 tablet by ORAL route once daily for 7 days; 21 tablet. Acyclovir 800 mg Oral Tablet - take 1 tablet by ORAL route 5 times per day for 10 days; 50 tablet. - Medication Reconciliation Form, Thank You Letter, Antibiotic Education, Prescription Opioid Use form. - Follow up: Private Physician; When: As needed; Reason: Recheck today's complaints, Re-evaluation by your physician. - Problem is an ongoing problem. - Symptoms have improved. Signatures: Sheldon Tran MD MD rn Joaquin, Henry, RN RN hj Peltier, Brian, RN RN bp Corrections: (The following items were deleted from the chart) : 09:15 07/27/2018 09:15 Discharged to Home. Impression: Zoster [herpes zoster]. bp Condition is Stable. Forms are Medication Reconciliation Form, Thank You Letter, Antibiotic Education, Prescription Opioid Use. Follow up: Private Physician; When: As needed; Reason: Recheck today's complaints, Re-evaluation by your physician. Problem is an ongoing problem. Symptoms have improved. rn
[2018-07-27] MEDS ORDERED: METHYLPREDNISOLONE 125 MG INJ ONE (09:22)
[2018-07-27] MEDS ORDERED: ACYCLOVIR 400 MG TABLET ONE (09:23)
[2018-07-27 09:30] VITALS: TEMP 98.8
[2018-07-27 09:32] VITALS: BP 118/60; O2SAT 96
== END 2018-07-27 09:26 | disposition home or self-care (01) ==
LOC: ER 08:28
DX: B02.9 Zoster without complications (principal); Z88.3 Allergy status to other anti-infective agents; Z85.841 Personal history of malignant neoplasm of brain
CPT/HCPCS: J2930

== ENCOUNTER 2018-08-21 16:20 | Emergency (ER) | payer OTHER ==
--- OUTSIDE RECORDS SUMMARY | 2018-08-21 16:23 | XMS REPORT | Clinical Summary ---
:1960 Author Organization [facility] Address [address] [place] [address] Care Team Providers Name Role Phone Unavailable [...] Ex-smoker; Linda Varner MD 02/27/2018 Travel after 08/20/2017 Family History Medical History Relation Name Comments [...] Taken Blood Pressure 137/77 03/10/2018 11:30 AM BUSINESS BANKER Pulse 69 03/10/2018 11:30 AM BUSINESS BANKER Temperature 35.7 C (96.3 F) 03/10/2018 11:30 AM BUSINESS BANKER Respiratory Rate 18 03/10/2018 11:30 AM BUSINESS BANKER Oxygen Saturation 96% 03/10/2018 11:30 AM BUSINESS BANKER Inhaled Oxygen Concentration - - Weight 74.1 kg (163 lb 5.8 oz) 03/08/2018 5:00 AM BUSINESS BANKER Height 162.6 cm (5' 4.02") 02/27/2018 3:20 AM BUSINESS BANKER Body Mass Index 28.03 03/08/2018 5:00 AM BUSINESS BANKER Plan of Treatment Not on file Implants Implanted Type Area Crusher And Blender Operator Device Shelf Model / Identifier Expiration Serial / Lot Date [facility] Full Strlprep 10ml [id number] - Sna Cement/F N/A: ESPINO:BIOSCI 07/25/2019 [id number] / Implanted: Qty: 1 on 03/06/2018 by Robert Hightower MD iller/Ad Head NA / hesive [id number] [employer] Durasl Spine 5ml [id number] - [id number] Cement/F N/A: [employer] LIF[employer]CI 07/30/[id number] / Implanted: Qty: 1 on 03/06/2018 by Robert Hightower MD iller/Ad Head / hesive [id number] Plt Str Lp-Neuro 2h 12mm Ti Ns 421.502 - Sna Fracture N/A: SYNTHES:SYNTHES 421.502 / Implanted: Qty: 2 on 03/06/2018 by Robert Hightower MD /Fixatio Head [facility] NA / n NA Plt Str Lp-Neuro 4h 12mm Ti Ns 421.504 - Sna Fracture N/A: SYNTHES:SYNTHES 421.504 / Implanted: Qty: 1 on 03/06/2018 by Robert Hightower MD /Fixatio Head [place] NA / n NA Scr Sd Mtrxneu 4mm Ti Ns .104.01 - Sna Fracture N/A: SYNTHES:SYNTHES 104.01 / Implanted: Qty: 8 on 03/06/2018 by Robert Hightower MD /Fixatio Head [facility] NA / n NA Graft Suturable Bp 4x5cm [id number] - [id number] Graft/Pa N/A: [employer] LIFESCI 03/31/2022 [id number] / Implanted: Qty: 1 on 03/06/2018 by Robert Hightower MD [facility] Head [id number] / [id number] Procedures Procedure Name Priority Date/Time Associated Comments Diagnosis INTRAOPERATIVE PATH 03/21/2018 3:20 REPORT - SCAN PM BUSINESS BANKER RHYTHM STRIP - SCAN 03/17/2018 12:30 PM BUSINESS BANKER POCT-GLUCOSE METER Routine 03/10/2018 11:26 Results for this AM BUSINESS BANKER procedure are in the results section. POCT-GLUCOSE METER Routine 03/10/2018 7:12 Results for this AM BUSINESS B[employer]ER procedure are in the results section. CBC W/PLT COUNT & AUTO Routine 03/10/2018 4:52 Results for this DIFFERENTIAL AM BUSINESS BANKER procedure are in the results section. CBC W/PLT COUNT & AUTO Routine 03/10/2018 4:52 Results for this DIFFERENTIAL AM BUSINESS B[employer]ER procedure are in the results section. BASIC METABOLIC PANEL Routine 03/10/2018 4:52 Results for this (7) AM BUSINESS BANKER procedure are in the results section. POCT-GLUCOSE METER Routine 03/09/2018 9:19 Results for this PM BUSINESS B[employer]ER procedure are in the results section. POCT-GLUCOSE METER Routine 03/09/2018 6:16 Results for this PM BUSINESS B[employer]ER procedure are in the results section. POCT-GLUCOSE METER Routine 03/09/2018 11:50 Results for this AM BUSINESS BANKER procedure are in the results section. POCT-GLUCOSE METER Routine 03/09/2018 8:18 Results for this AM BUSINESS BANKER procedure are in the results section. CBC W/PLT COUNT & AUTO Routine 03/09/2018 5:44 Results for this DIFFERENTIAL AM BUSINESS BANKER procedure are in the results section. CBC W/PLT COUNT & AUTO Routine 03/09/2018 5:44 Results for this DIFFERENTIAL AM BUSINESS B[employer]ER procedure are in the results section. BASIC METABOLIC PANEL Routine 03/09/2018 5:44 Results for this (7) AM BUSINESS BANKER procedure are in the results section. POCT-GLUCOSE METER Routine 03/08/2018 9:14 Results for this PM BUSINESS B[employer]ER procedure are in the results section. POCT-GLUCOSE METER Routine 03/08/2018 6:00 Results for this PM BUSINESS B[employer]ER procedure are in the results section. POCT-GLUCOSE METER Routine 03/08/2018 1:31 Results for this PM BUSINESS B[employer]ER procedure are in the results section. MR BRAIN WITHOUT & STAT 03/08/2018 11:47 Results for this WITH IV CONTRAST AM BUSINESS BANKER procedure are in the results section. (CELLAVISION MANUAL Routine 03/08/2018 3:33 Results for this DIFF) AM BUSINESS BANKER procedure are in the results section. CBC W/PLT COUNT & AUTO Routine 03/08/2018 3:33 Results for this DIFFERENTIAL AM BUSINESS BANKER procedure are in the results section. CBC W/PLT COUNT & AUTO Routine 03/08/2018 3:33 Results for this DIFFERENTIAL AM BUSINESS B[employer]ER procedure are in the results section. BASIC METABOLIC PANEL Routine 03/08/2018 3:33 Results for this (7) AM BUSINESS BANKER procedure are in the results section. POCT-GLUCOSE METER Routine 03/07/2018 11:20 Results for this PM BUSINESS B[employer]ER procedure are in the results section. POCT-GLUCOSE METER Routine 03/07/2018 10:00 Results for this PM BUSINESS B[employer]ER procedure are in the results section. POCT-GLUCOSE METER Routine 03/07/2018 6:24 Results for this PM BUSINESS [employer]ER procedure are in the results section. POCT-GLUCOSE METER Routine 03/07/2018 12:17 Results for this PM BUSINESS B[employer]ER procedure are in the results section. POCT-GLUCOSE METER Routine 03/07/2018 8:34 Results for this AM BUSINESS B[employer]ER procedure are in the results section. (CELLAVISION MANUAL Routine 03/07/2018 3:59 Results for this DIFF) AM BUSINESS BANKER procedure are in the results section. CBC W/PLT COUNT & AUTO Routine 03/07/2018 3:59 Results for this DIFFERENTIAL AM BUSINESS BANKER procedure are in the results section. PHOSPHORUS Routine 03/07/2018 3:59 Results for this AM BUSINESS B[employer]ER procedure are in the results section. MAGNESIUM Routine 03/07/2018 3:59 Results for this AM BUSINESS B[employer]ER procedure are in the results section. CBC W/PLT COUNT & AUTO Routine 03/07/2018 3:59 Results for this DIFFERENTIAL AM BUSINESS BANKER procedure are in the results section. BASIC METABOLIC PANEL Routine 03/07/2018 3:59 Results for this (7) AM BUSINESS BANKER procedure are in the results section. POCT-GLUCOSE METER Routine 03/06/2018 10:25 Results for this PM BUSINESS [employer]ER procedure are in the results section. TISSUE EXAM AP Routine 03/06/2018 6:28 Results for this PM BUSINESS B[employer]ER procedure are in the results section. POCT-GLUCOSE METER Routine 03/06/2018 12:27 Results for this PM BUSINESS B[employer]ER procedure are in the results section. 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 POCT-GLUCOSE METER Routine 03/06/2018 5:15 AM Results for this BUSINESS BANKER procedure are in the results section. CBC W/PLT COUNT & AUTO Routine 03/06/2018 4:37 AM Results for this DIFFERENTIAL BUSINESS BANKER procedure are in the results section. CBC W/PLT COUNT & AUTO Routine 03/06/2018 4:37 AM Results for this DIFFERENTIAL BUSINESS B[employer]ER procedure are in the results section. BASIC METABOLIC PANEL (7) Routine 03/06/2018 4:37 AM Results for this BUSINESS BANKER procedure are in the results section. PT/APTT Routine 03/06/2018 4:37 AM Results for this BUSINESS BANKER procedure are in the results section. POCT-GLUCOSE METER Routine 03/05/2018 10:05 PM Results for this BUSINESS BANKER procedure are in the results section. TRANSFUSION SERVICE REPORT 03/05/2018 6:01 PM - SCAN BUSINESS BANKER POCT-GLUCOSE METER Routine 03/05/2018 4:42 PM Results for this BUSINESS BANKER procedure are in the results section. POCT-GLUCOSE METER Routine 03/05/2018 12:01 PM Results for this BUSINESS B[employer]ER procedure are in the results section. POCT-GLUCOSE METER Routine 03/05/2018 7:18 AM Results for this BUSINESS BANKER procedure are in the results section. CBC W/PLT COUNT & AUTO Routine 03/05/2018 4:45 AM Results for this DIFFERENTIAL BUSINESS B[employer]ER procedure are in the results section. CBC W/PLT COUNT & AUTO Routine 03/05/2018 4:45 AM Results for this DIFFERENTIAL BUSINESS BANKER procedure are in the results section. BASIC METABOLIC PANEL (7) Routine 03/05/2018 4:45 AM Results for this BUSINESS BANKER procedure are in the results section. POCT-GLUCOSE METER Routine 03/04/2018 8:24 PM Results for this BUSINESS BANKER procedure are in the results section. POCT-GLUCOSE METER Routine 03/04/2018 5:38 PM Results for this BUSINESS BANKER procedure are in the results section. POCT-GLUCOSE METER Routine 03/04/2018 12:03 PM Results for this BUSINESS BANKER procedure are in the results section. REPORT OF PROCEDURE - 03/04/2018 11:06 AM ENDOSCOPY URL BUSINESS BANKER EBUS FNA REQUEST Routine 03/04/2018 10:23 AM Results for this BUSINESS BANKER procedure are in the results section. FINE NEEDLE ASPIRATE BY AP Routine 03/04/2018 10:23 AM Results for this EBUS BUSINESS BANKER procedure are in the results section. EBUS FNA REQUEST Routine 03/04/2018 10:08 AM Results for this BUSINESS BANKER procedure are in the results section. FINE NEEDLE ASPIRATE BY AP Routine 03/04/2018 10:08 AM Results for this EBUS BUSINESS BANKER procedure are in the results section. EBUS FNA REQUEST Routine 03/04/2018 10:02 AM Results for this BUSINESS BANKER procedure are in the results section. FINE NEEDLE ASPIRATE BY AP Routine 03/04/2018 10:02 AM Results for this EBUS BUSINESS BANKER procedure are in the results section. EBUS FNA REQUEST Routine 03/04/2018 10:01 AM Results for this BUSINESS BANKER procedure are in the results section. EBUS FNA REQUEST Routine 03/04/2018 10:01 AM Results for this BUSINESS BANKER procedure are in the results section. FINE NEEDLE ASPIRATE BY AP Routine 03/04/2018 10:01 AM Results for this EBUS BUSINESS BANKER procedure are in the results section. FINE NEEDLE ASPIRATE BY AP Routine 03/04/2018 10:01 AM Results for this EBUS BUSINESS BANKER procedure are in the results section. TISSUE EXAM AP Routine 03/04/2018 9:17 AM Results for this BUSINESS BANKER procedure are in the results section. BRONCHOSCOPY,ASPIRATION 03/04/2018 9:02 AM Lung mass TRACHEOBRONCHIAL TREE BUSINESS BANKER BRONCHOSCOPY,CRYOTHERAPY 03/04/2018 9:02 AM Lung mass TREATMENT FOR STENOSIS BUSINESS BANKER BRONCHOSCOPY,ENDOBRONCHIAL 03/04/2018 9:02 AM Lung mass ULTRASOUND (EBUS) BUSINESS BANKER TRANSTRACH/ TRANSBRONCH SAMPLING POCT-GLUCOSE METER Routine 03/04/2018 8:05 AM Results for this BUSINESS BANKER procedure are in the results section. CBC W/PLT COUNT & AUTO Routine 03/04/2018 5:45 AM Results for this DIFFERENTIAL BUSINESS B[employer]ER procedure are in the results section. TYPE AND SCREEN, AUTOMATED Routine 03/04/2018 5:45 AM Results for this BUSINESS B[employer]ER procedure are in the results section. APTT STAT 03/04/2018 5:45 AM Results for this BUSINESS BANKER procedure are in the results section. PROTHROMBIN TIME/INR STAT 03/04/2018 5:45 AM Results for this BUSINESS BANKER procedure are in the results section. CBC W/PLT COUNT & AUTO Routine 03/04/2018 5:45 AM Results for this DIFFERENTIAL BUSINESS B[employer]ER procedure are in the results section. BASIC METABOLIC PANEL (7) Routine 03/04/2018 5:45 AM Results for this BUSINESS BANKER procedure are in the results section. POCT-GLUCOSE METER Routine 03/03/2018 9:40 PM Results for this BUSINESS BANKER procedure are in the results section. NM BONE SCAN WHOLE BODY Routine 03/03/2018 2:27 PM Results for this BUSINESS BANKER procedure are in the results section. POCT-GLUCOSE METER Routine 03/03/2018 11:29 AM Results for this BUSINESS BANKER procedure are in the results section. POCT-GLUCOSE METER Routine 03/03/2018 8:25 AM Results for this BUSINESS B[employer]ER procedure are in the results section. CBC W/PLT COUNT & AUTO Routine 03/03/2018 4:53 AM Results for this DIFFERENTIAL BUSINESS B[employer]ER procedure are in the results section. CBC W/PLT COUNT & AUTO Routine 03/03/2018 4:53 AM Results for this DIFFERENTIAL BUSINESS B[employer]ER procedure are in the results section. POCT-GLUCOSE METER Routine 03/02/2018 9:25 PM Results for this BUSINESS BANKER procedure are in the results section. POCT-GLUCOSE METER Routine 03/02/2018 1:06 PM Results for this BUSINESS BANKER procedure are in the results section. POCT-GLUCOSE METER Routine 03/02/2018 8:06 AM Results for this BUSINESS BANKER procedure are in the results section. URINALYSIS W/ REFLEX URINE Routine 03/02/2018 6:00 AM Results for this CULTURE BUSINESS BANKER procedure are in the results section. CBC W/PLT COUNT & AUTO Routine 03/02/2018 4:54 AM Results for this DIFFERENTIAL BUSINESS B[employer]ER procedure are in the results section. CBC W/PLT COUNT & AUTO Routine 03/02/2018 4:54 AM Results for this DIFFERENTIAL BUSINESS B[employer]ER procedure are in the results section. BASIC METABOLIC PANEL (7) Routine 03/02/2018 4:54 AM Results for this BUSINESS BANKER procedure are in the results section. POCT-GLUCOSE METER Routine 03/01/2018 9:02 PM Results for this BUSINESS BANKER procedure are in the results section. POCT-GLUCOSE METER Routine 03/01/2018 5:46 PM Results for this BUSINESS BANKER procedure are in the results section. POCT-GLUCOSE METER Routine 03/01/2018 12:17 PM Results for this BUSINESS BANKER procedure are in the results section. CBC W/PLT COUNT & AUTO Routine 03/01/2018 6:14 AM Results for this DIFFERENTIAL BUSINESS B[employer]ER procedure are in the results section. CBC W/PLT COUNT & AUTO Routine 03/01/2018 6:14 AM Results for this DIFFERENTIAL BUSINESS B[employer]ER procedure are in the results section. BASIC METABOLIC PANEL (7) Routine 03/01/2018 6:14 AM Results for this BUSINESS B[employer]ER procedure are in the results section. POCT-GLUCOSE METER Routine 03/01/2018 6:07 AM Results for this BUSINESS B[employer]ER procedure are in the results section. POCT-GLUCOSE METER Routine 02/28/2018 6:18 PM Results for this BUSINESS BANKER procedure are in the results section. CT ABDOMEN/PELVIS WITH IV Routine 02/28/2018 11:32 AM Results for this CONTRAST BUSINESS B[facility]ER procedure are in the results section. CT CHEST WITH IV CONTRAST Routine 02/28/2018 11:32 AM Results for this BUSINESS BANKER procedure are in the results section. POCT-GLUCOSE METER Routine 02/28/2018 8:10 AM Results for this BUSINESS BANKER procedure are in the results section. POCT-GLUCOSE METER Routine 02/28/2018 5:54 AM Results for this BUSINESS BANKER procedure are in the results section. MR BRAIN WITHOUT & WITH IV LORETTA 02/28/2018 5:03 AM Results for this CONTRAST BUSINESS B[employer]ER procedure are in the results section. CBC W/PLT COUNT & AUTO Routine 02/28/2018 3:23 AM Results for this DIFFERENTIAL BUSINESS B[employer]ER procedure are in the results section. CBC W/PLT COUNT & AUTO Routine 02/28/2018 3:23 AM Results for this DIFFERENTIAL BUSINESS B[employer]ER procedure are in the results section. BASIC METABOLIC PANEL (7) Routine 02/28/2018 3:23 AM Results for this BUSINESS BANKER procedure are in the results section. POCT-GLUCOSE METER Routine 02/28/2018 12:07 AM Results for this BUSINESS BANKER procedure are in the results section. BLOOD CULTURE Routine 02/27/2018 6:57 PM Results for this BUSINESS BANKER procedure are in the results section. POCT-GLUCOSE METER Routine 02/27/2018 6:30 PM Results for this BUSINESS BANKER procedure are in the results section. POCT-GLUCOSE METER Routine 02/27/2018 11:50 AM Results for this BUSINESS BANKER procedure are in the results section. ECG 12-LEAD Routine 02/27/2018 8:17 AM Results for this BUSINESS BANKER procedure are in the results section. POCT-GLUCOSE METER Routine 02/27/2018 5:29 AM Results for this BUSINESS BANKER procedure are in the results section. C-REACTIVE PROTEIN Routine 02/27/2018 5:27 AM Results for this BUSINESS BANKER procedure are in the results section. LACTATE DEHYDROGENASE Routine 02/27/2018 5:27 AM Results for this (LDH) BUSINESS BANKER procedure are in the results section. LACTIC ACID, ARTERIAL Routine 02/27/2018 5:27 AM Results for this BUSINESS BANKER procedure are in the results section. PROCALCITONIN Routine 02/27/2018 5:27 AM Results for this BUSINESS BANKER procedure are in the results section. BLOOD CULTURE Routine 02/27/2018 5:27 AM Results for this BUSINESS BANKER procedure are in the results section. PHOSPHORUS Routine 02/27/2018 5:04 AM Results for this BUSINESS BANKER procedure are in the results section. MAGNESIUM Routine 02/27/2018 5:04 AM Results for this BUSINESS B[employer]ER procedure are in the results section. PT/APTT Routine 02/27/2018 5:04 AM Results for this BUSINESS BANKER procedure are in the results section. PROTHROMBIN TIME/INR Routine 02/27/2018 5:04 AM Results for this BUSINESS BANKER procedure are in the results section. BASIC METABOLIC PANEL (7) Routine 02/27/2018 5:04 AM Results for this BUSINESS BANKER procedure are in the results section. TROPONIN I Routine 02/27/2018 5:04 AM Results for this BUSINESS BANKER procedure are in the results section. CBC W/PLT COUNT & AUTO Routine 02/27/2018 5:00 AM Results for this DIFFERENTIAL BUSINESS B[employer]ER procedure are in the results section. CBC W/PLT COUNT & AUTO Routine 02/27/2018 5:00 AM Results for this DIFFERENTIAL BUSINESS B[employer]ER procedure are in the results section. after 08/20/2017 Results INTRAOPERATIVE PATH REPORT - SCAN (03/21/2018 3:20 PM BUSINESS BANKER) Narrative Performed At RHYTHM STRIP - SCAN (03/17/2018 12:30 PM BUSINESS BANKER) Narrative Performed At POC-Glucose meter (03/10/2018 11:26 AM BUSINESS BANKER)Only the most recent of43 resultswithin the time period is included. POC-Glucose Meter 114 (H)Comment: TESTED AT 70 - 110 mg/dL [facility] [address] [facility] [address] Specimen Blood Performing Organization Address City/State/Zipcode Phone Number [address] [address] [phone] CENTER CBC with platelet count + automated diff (03/10/2018 4:52 AM BUSINESS BANKER)Only the most recent of12 resultswithin the time period is included. WBC 20.9 (H) 3.5 - 10.5 K/L [facility] RBC 5.18 3.93 - 5.22 M/L [facility] Hemoglobin 12.9 11.2 - 15.7 GM/DL [facility] Hematocrit 41.8 34.1 - 44.9 % [facility] MCV 80.7 79.4 - 94.8 fL [facility] MCH 24.9 (L) 25.6 - 32.2 pg [facility] MCHC 30.9 (L) 32.2 - 35.5 GM/DL [facility] RDW 15.7 (H) 11.7 - 14.4 % [facility] Platelets 485 (H) 150 - 450 K/CU MM [facility] MPV 9.1 (L) 9.4 - 12.3 fL [facility] nRBC 0 0 - 0 /100 WBC [facility] % Neutros 82 % [facility] % Lymphs 10 % [facility] % Monos 6 % [facility] % Eos 1 % [facility] % Baso 0 % [facility] # Neutros 17.13 (H) 1.56 - 6.13 K/L [facility] # Lymphs 2.17 1.18 - 3.74 K/L [facility] # Monos 1.19 (H) 0.24 - 0.36 K/L [facility] # Eos 0.17 0.04 - 0.36 K/L [facility] # Baso 0.03 0.01 - 0.08 K/L [facility] Immature 1 0 - 1 % [facility] Specimen Blood Performing Organization Address City/State/Zipcode Phone Number [facility] [address] [place] [address] CENTER Basic metabolic panel (03/10/2018 4:52 AM BUSINESS BANKER)Only the most recent of11 resultswithin the time period is included. Sodium 134 (L) 136 - 145 meq/L [facility] Potassium 4.4 3.5 - 5.1 meq/L [facility] Chloride 103 98 - 107 meq/L [facility] CO2 23 22 - 29 meq/L [facility] BUN 19 7 - 21 mg/dL [facility] Creatinine 0.60 0.57 - 1.25 mg/dL [facility] Glucose 103 70 - 105 mg/dL [facility] Calcium 9.7 8.4 - 10.2 mg/dL [facility] EGFR Comment: INSUFFICIENT CLINICAL mL/min/1.73 sq m [facility] DATA TO CALCULATE ESTIMATED [facility]ICAL CENTER GFR. Specimen Blood Performing Organization Address City/State/Zipcode Phone Number [facility] [address] [place] [address] CENTER MR brain without & with IV contrast (03/08/2018 11:47 AM BUSINESS BANKER)Only the most recent of2 resultswithin the time period is included. Specimen Narrative Performed At FINAL REPORT [facility] MRI Brain with and without contrast Clinical [...] MD Report Verified Date/Time:03/08/2018 12:29:16 Reading Location: [address] Neuro Reading Room Procedure Note Interface, External Ris In - 03/08/2018 12:31 PM BUSINESS BANKER FINAL REPORT MRI Brain with and without [...] Report Verified Date/Time: 03/08/2018 12:29:16 Reading Location: [address] Neuro Reading Room Performing Organization Address City/State/Zipcode Phone Number GE RIS Manual Differential (03/08/2018 3:33 AM BUSINESS BANKER)Only the most recent of2 resultswithin the time period is included. % Neutros 91 % [facility] % Lymphs 6 % [facility] % Monos 1 % [facility] % Bands 2 0 - 10 % [facility] # Neutros 23.11 (H) 1.56 - 6.13 K/ul [facility] # Lymphs 1.52 1.18 - 3.74 K/ul [facility] # Monos 0.25 0.24 - 0.36 K/uL [facility] # Bands 0.51 0.00 - 0.80 K/uL [facility] Total Counted 100 [facility] WBC Morphology Normal [facility] Platelet Morphology Normal [facility] Polychromasia 3+ many [facility] Anisocytosis 2+ moderate [facility] Microcytes 1+ few [facility] Artifact Present [facility] Platelet Conc Increased [facility] Specimen Blood Narrative Performed At Received comment: [facility] User comments: Slide comments: Performing Organization Address [facility] Phone Number [address] [address] CENTER Phosphorus (03/07/2018 3:59 AM BUSINESS BANKER)Only the most recent of2 resultswithin the time period is included. Phosphorus 3.4 2.3 - 4.7 mg/dL [facility] Specimen Blood Performing Organization Address [facility] Phone Number [address] [address] CENTER Magnesium (03/07/2018 3:59 AM BUSINESS BANKER)Only the most recent of2 resultswithin the time period is included. Magnesium 1.9 1.6 - 2.6 mg/dL [facility] Specimen Blood Performing Organization Address [facility] Phone Number [address] [address] CENTER Tissue Exam (03/06/2018 6:28 PM BUSINESS BANKER)Only the most recent of2 resultswithin the time period is included. Case Report Surgical Pathology Report Case: [id number] [facility] Authorizing Provider:Robert Hightower MDCollected: 03/06/2018 1828 [facility]ing [facility] Received: 03/07/2018 0900 SERVICES Pathologist: Blu Bowers MD Specimen:Tumor ADDENDUM The following results were reported by [employer]. Please see attached reports. 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 [...] Tumor is negative for p63. CPT Code(s) [id number]; [id number]; 24534 x 6 [facility] CLINICAL HISTORY Cancer of cerebellum [facility] SPECIMEN SOURCE Tumor of cranium [facility] GROSS DESCRIPTION The specimen is received in a [facility] formalin-filled container [facility] labeled with the patient's information and labeled "cranium tumor" and consists of multiple fragments of santiago hemorrhagic soft tissue measuring 3 x 2.5 x 1 cm in aggregate. The specimen is entirely submitted in A1 and A2. CG/ew MICROSCOPIC DESCRIPTION Performed [facility] SPECIAL STUDIES The interpretation of this case included the use of immunohistochemistry or special stains. [facility] Immunohistochemistry technical testing was performed at [facility], Pathology Laboratory where it was developed [...] developed and its performance characteristics determined by [facility], Pathology Laboratory. It has not [...] Tumor Narrative Performed At Performing Organization Address City/[facility]/Zipcode Phone Number [address] [address] [place] PT/aPTT (03/06/2018 4:37 AM BUSINESS BANKER)Only the most recent of2 resultswithin the time period is included. Protime 13.1 11.7 - 14.7 seconds [facility] INR 1.0 <=5.9 [facility] PTT 24.2 22.5 - 36.0 seconds [facility] Specimen Blood Narrative Performed At RECOMMENDED COUMADIN/WARFARIN INR THERAPY [facility] RANGES STANDARD DOSE: 2.0 - 3.0 Includes: PROPHYLAXIS for venous thrombosis, systemic embolization; TREATMENT for venous thrombosis and/or pulmonary embolus. HIGH RISK: Target INR is 2.5-3.5 for patients with mechanical heart valves. Performing Organization Address City/[facility] Phone Number [address] [address] [place] TRANSFUSION SERVICE REPORT - SCAN (03/05/2018 6:01 PM BUSINESS BANKER) Narrative Performed At REPORT OF PROCEDURE - ENDOSCOPY URL (03/04/2018 11:06 AM BUSINESS BANKER) Narrative Performed At EBUS FNA REQUEST (03/04/2018 10:23 AM BUSINESS BANKER)Only the most recent of5 resultswithin the time period is included. Cytology See Separate Report [facility] Specimen EBUS Fine Needle Aspirate - Lymph Node, Interlobar, Right, Station 11R Performing Organization Address City/State/Zipcode Phone Number [facility] [address] [place] [address] CENTER Fine Needle Aspiration by EBUS (03/04/2018 10:23 AM BUSINESS BANKER)Only the most recent of5 resultswithin the time period is included. Case Report Medical Cytology Report Case: [id number] [facility] Authorizing Provider:Robert Tirado MDCollected: 03/04/2018 1023 [facility] Ordering Location: [address] Received: 03/04/2018 1244 Service Pathologist: Ben Vila MD Specimen:Lymph Node, Interlobar, Right, Station 11R DIAGNOSIS LYMPH NODE, INTERLOBAR RIGHT, STATION 11R EBUS FNA BY CLINICIAN ( CYTOSPINS OF ASPIRATE): [facility] - NEGATIVE FOR MALIGNANCY [facility] - LYMPHOCYTES PRESENT Signing Pathologist Direct Phone Line: [phone] COMMENT [facility] Please also see surgical pathology report [id number] and cytopathology reports [id number], [id number], [id number] and 3648. [facility] CPT Code(s) 53357 [facility] CLINICAL DATA Lung mass [facility] SPECIMEN SOURCE LYMPH NODE, INTERLOBAR RIGHT, [facility] STATION 11R EBUS FNA [facility] GROSS DESCRIPTION 40 mls in cytorich red; 2 cytospins [facility] Collected: [id number] [facility] Received: [id number] SPECIAL STUDIES The interpretation of this case included the use of immunohistochemistry or special stains. [facility] Immunohistochemistry technical testing was performed at [facility], Pathology Laboratory where it was developed [...] complexity clinical laboratory testing. Gross assessment was [facility] performed at [place], Department [facility] Pathology, [address] [place] [id number], Technical component was [facility] performed at [place], [facility] Pathology, [address] [place] [id number], Professional component [facility] was performed at [place], [facility] Pathology, [address] [place] [id number], Specimen EBUS Fine Needle Aspirate - Lymph Node, Interlobar, Right, Station 11R Narrative Performed At Performing Organization Address City/[facility] Centercode Phone Number [address] [address] CENTER Type and screen, automated (03/04/2018 5:45 AM BUSINESS BANKER) ABO/RH AUTOMATED (BEAKER) A POSITIVE [facility] Ab Scrn NEGATIVE [facility] Specimen Blood Performing Organization Address [facility] Centercode Phone Number [address] [address] aPTT (03/04/2018 5:45 AM BUSINESS BANKER) PTT 25.2 22.5 - 36.0 seconds [facility] Specimen Blood Performing Organization Address [facility]/Zipcode Phone Number [address] [address] [phone] CENTER Prothrombin time/INR (03/04/2018 5:45 AM BUSINESS BANKER)Only the most recent of2 resultswithin the time period is included. Protime 13.6 11.7 - 14.7 seconds [facility] INR 1.0 <=5.9 [facility] Specimen Blood Narrative Performed At RECOMMENDED COUMADIN/WARFARIN INR THERAPY [facility] RANGES STANDARD DOSE: 2.0 - 3.0 Includes: PROPHYLAXIS for venous thrombosis, systemic embolization; TREATMENT for venous thrombosis and/or pulmonary embolus. HIGH RISK: Target INR is 2.5-3.5 for patients with mechanical heart valves. Performing Organization Address City/State/Zipcode Phone Number [facility] [address] [place] [address] CENTER NM bone scan whole body (03/03/2018 2:27 PM BUSINESS BANKER) Specimen Narrative Performed At FINAL REPORT [facility] PROCEDURE: BONE SCAN, WHOLE BODY CPT CODE:71031 INDICATION:Right lung cancer with cerebellar metastasis PROTOCOL:21.6 [...] MD Report Verified Date/Time:03/03/2018 15:34:30 Reading Location: [address] Reading Room Procedure Note Interface, External Ris In - 03/03/2018 3:36 PM BUSINESS BANKER FINAL REPORT PROCEDURE: BONE SCAN, WHOLE BODY CPT CODE: 35755 INDICATION: Right lung cancer with cerebellar metastasis [...] Report Verified Date/Time: 03/03/2018 15:34:30 Reading Location: [address] Reading Room Performing Organization Address City/State/Zipcode Phone Number RIS Urinalysis w/Microscopic + Reflex to Culture (03/02/2018 6:00 AM BUSINESS BANKER) Color, UA Light Yellow [facility] Clarity, UA Hazy [facility] Specific [place], UA 1.019 1.001 - 1.035 [facility] pH, UA 7.0 5.0 - 8.0 [facility] Protein, UA Negative Negative [facility] Glucose, UA Negative Negative [facility] Ketones, UA Negative Negative [facility] Bilirubin, UA Negative Negative [facility] Blood, UA Negative Negative [facility] Nitrite, UA Negative Negative [facility] Leukocytes, UA Negative Negative [facility] Urobilinogen, UA 0.2 0.2 - 1.0 mg/dL [facility] RBC, UA 2 /HPF [facility] WBC, UA 0 /HPF [facility] Mucus Rare [facility] Squam Epithel, UA <1 /HPF [facility] Specimen Source [facility] Specimen Urine Performing Organization Address City/State/Zipcode Phone Number [facility] [address] [place] [address] abdomen/pelvis with IV contrast (02/28/2018 11:32 AM BUSINESS BANKER) Specimen Narrative Performed At FINAL REPORT GE [...] 15:20:36 Reading Location: [facility] B1 C013Y CT Body Reading Room Procedure Note Interface, External Ris In - 02/28/2018 3:22 PM BUSINESS BANKER FINAL REPORT CT of the Chest, abdomen [...] 15:20:36 Reading Location: [facility] B1 C013Y CT Body Reading Room Performing Organization Address City/State/Zipcode Phone Number GE RIS CT chest with IV contrast (02/28/2018 11:32 AM BUSINESS BANKER) Specimen Narrative Performed At FINAL REPORT [employer] RIS CT of the Chest, abdomen and [...] MD Report Verified Date/Time:02/28/2018 15:20:36 Reading Location: [address] Body Reading Room Procedure Note Interface, External Ris In - 02/28/2018 3:22 PM BUSINESS BANKER FINAL REPORT CT of the Chest, abdomen [...] Report Verified Date/Time: 02/28/2018 15:20:36 Reading Location: [facility] C013 CT Body Reading Room Performing Organization Address City/State/Zipcode Phone Number [employer] RIS Blood culture (02/27/2018 6:57 PM BUSINESS BANKER)Only the most recent of2 resultswithin the time period is included. Result No growth in 5 days [facility] Specimen Blood Performing Organization Address City/[facility]/Zipcode Phone Number [address] [address] [phone] CENTER ECG 12 lead (02/27/2018 8:17 AM BUSINESS BANKER) Specimen Narrative Performed At Ventricular Rate 61 BPM GE MUSE Atrial Rate 61 BPM P-R Interval 154 ms QRS Duration 94 ms Q-T Interval 472 ms QTC Calculation(Bazett) 475 ms P Gilbert 39 degrees R Gilbert 4 degrees T Gilbert 4 degrees Normal sinus rhythm Prolonged QT Abnormal ECG No previous ECGs available Confirmed by MD REBOLLEDO JORGE ([id number]) on 02/27/2018 11:34:39 AM Procedure Note Interface, External Ris In - 02/27/2018 11:34 AM BUSINESS BANKER Ventricular Rate 61 BPM Atrial Rate 61 BPM P-R Interval 154 ms QRS Duration 94 ms Q-T Interval 472 ms QTC Calculation(Bazett) 475 ms P Gilbert 39 degrees R Gilbert 4 degrees T Gilbert 4 degrees Normal sinus rhythm Prolonged QT Abnormal ECG No previous ECGs available Confirmed by MD REBOLLEDO JORGE ([id number]) on 02/27/2018 11:34:39 AM Performing Organization Address City/[facility] Cent[facility] Phone Number [facility] [place] Procalcitonin (02/27/2018 5:27 AM BUSINESS BANKER) Procalcitonin <0.05 <0.05 ng/mL [facility] Specimen Blood Narrative Performed At SEPSIS RISK (ng/mL) [facility] Low:0.05-0.50 Intermediate: 0.51-2.00 High: >=2.01 Performing Organization Address [facility] Phone Number [address] [address] CENTER C-Reactive Protein (02/27/2018 5:27 AM BUSINESS BANKER) CRP 8.22 (H) 0.00 - 0.50 mg/dL [facility] Specimen Blood Performing Organization Address [facility] Phone Number [address] [address] [place] Lactic acid, arterial, whole blood (02/27/2018 5:27 AM BUSINESS BANKER) Lactate, Art 1.0 0.5 - 2.2 mmol/L [facility] Specimen Blood, Arterial Performing Organization Address [facility] Phone Number [address] [address] [phone] CENTER Lactate dehydrogenase (LDH) (02/27/2018 5:27 AM BUSINESS BANKER) LDH 146 125 - 220 U/L [facility] Specimen Blood Performing Organization Address [facility] Phone Number [address] [address] [phone] CENTER Troponin I (02/27/2018 5:04 AM BUSINESS BANKER) Troponin I <0.01 0.00 - 0.03 ng/mL [facility] CENTER Specimen Blood Performing Organization Address City/State/Zipcode Phone Number [facility] [address] [place] [address] CENTER after 08/20/2017 Insurance Payer Benefit Plan / Group Subscriber ID Type Phone Address MEDICAID [place] xxxxxxxxx Medicaid Advance Directives For more information, please contact:[facility] [place] [address] [phone] Code Status Date Activated Date Inactivated Comments Full Code 02/27/2018 3:43 AM This code status was determined by: Patient
--- OUTSIDE RECORDS SUMMARY | 2018-08-21 16:25 | XMS REPORT ---
:1960 [facility] [address] [place] [address] [address] [place] [address] Care Team Providers Name Role Phone JACOBY MÁRQUEZ Unavailable Unavailable Problems This patient has no known problems. Allergies, Adverse Reactions, Alerts This patient has no known allergies or adverse reactions. Medications This patient has no known medications. Results Test Description Test Time Test Comments Text Results Atomic Results Result Comments TISSUE EXAM 2018-05-24 13:16:00 Surgical Pathology Report Case: [id number] Authorizing Provider: Robert Hightower MD Collected: 03/06/2018 1828 Ordering Location: [facility] PERIOPERATIVE Received: 03/07/2018 0900 SERVICES Pathologist: Blu Bowers MD Specimen: Tumor The following results were reported by [employer]. Please see attached reports.PD-L1 22C3 FDA analysis confirms HIGH EXPRESSIONBRAF gene rearrangement is NOT DETECTEDROS1 gene rearrangement is NOT DETECTEDALK gene rearrangement is NOT DETECTEDEGFR mutations in exons 18, 19, 20 T790M and other mutations, 21Addendum electronically signed by Blu Bowers MD on 05/24/2018 at 1:16 PMBRAIN, CEREBELLUM, CRANIOTOMY:METASTATIC ADENOCARCINOMA WITH FOCAL SQUAMOUS DIFFERENTIATION (SEE COMMENT) Signing Pathologist Direct Phone Line: [phone] signed by Blu Bowers MD on 03/19/2018 [...] tumor cells. Tumor is negative for p63. 78133; 92638; 84761 x 6Cancer of cerebellumTumor of craniumThe specimen [...] stains. Immunohistochemistry technical testing was performed at [facility], Pathology Laboratory where it was [...] developed and its performance characteristics determined by [facility], Pathology Laboratory. It has not been cleared [...] (BEAKER) (test 174 mg/dL 70-110 TESTED AT [address] kowi=5238) [facility] [address] POCT-GLUCOSE [id number] 12:07:00 Test Item Value Reference Range Comments POC-GLUCOSE METER (BEAKER) 114 mg/dL 70-110 TESTED AT [address] (test pgek=6640) [place] [id number] POCT-GLUCOSE [id number] 07:14:00 Test Item Value Reference Range Comments POC-GLUCOSE METER (BEAKER) 104 mg/dL 70-110 TESTED AT [address] (test povo=4604) [place] [address] BASIC METABOLIC [id number] 05:46:00 Test Item Value Reference Range Comments SODIUM (BEAKER) (test 134 meq/L 136-145 uwmu=480) POTASSIUM (BEAKER) (test 4.4 meq/L 3.5-5.1 apiu=456) CHLORIDE (BEAKER) (test 103 meq/L 98-107 katn=790) CO2 (BEAKER) (test 23 meq/L 22-29 sjkk=361) BLOOD UREA NITROGEN 19 mg/dL 7-21 (BEAKER) (test mvgc=756) CREATININE (BEAKER) (test 0.60 mg/dL 0.57-1.25 xuxm=688) GLUCOSE RANDOM (BEAKER) 103 mg/dL 70-105 (test aowd=779) CALCIUM (BEAKER) (test 9.7 mg/dL 8.4-10.2 mfng=248) EGFR (BEAKER) (test mL/min/1.73 sq m INSUFFICIENT CLINICAL DATA vfpl=9106) TO CALCULATE ESTIMATED GFR. CBC W/PLT COUNT & AUTO [id number] 05:20:00 Test Item Value Reference Range Comments WHITE BLOOD CELL COUNT (BEAKER) (test hcox=729) 20.9 K/ L 3.5-10.5 RED BLOOD CELL COUNT (BEAKER) (test ropr=134) 5.18 M/ L 3.93-5.22 HEMOGLOBIN (BEAKER) (test oskv=717) 12.9 GM/DL 11.2-15.7 HEMATOCRIT (BEAKER) (test gkpk=695) 41.8 % 34.1-44.9 MEAN CORPUSCULAR VOLUME (BEAKER) (test kifx=504) 80.7 fL 79.4-94.8 MEAN CORPUSCULAR HEMOGLOBIN (BEAKER) (test 24.9 pg 25.6-32.2 tmfi=200) MEAN CORPUSCULAR HEMOGLOBIN CONC (BEAKER) (test 30.9 GM/DL 32.2-35.5 yscf=893) RED CELL DISTRIBUTION WIDTH (BEAKER) (test 15.7 % 11.7-14.4 huzk=431) PLATELET COUNT (BEAKER) (test pspv=882) 485 K/CU MM 150-450 MEAN PLATELET VOLUME (BEAKER) (test zdvw=444) 9.1 fL 9.4-12.3 NUCLEATED RED BLOOD CELLS (BEAKER) (test 0 /100 WBC 0-0 krny=012) NEUTROPHILS RELATIVE PERCENT (BEAKER) (test 82 % nxzz=372) LYMPHOCYTES RELATIVE PERCENT (BEAKER) (test 10 % zyft=282) MONOCYTES RELATIVE PERCENT (BEAKER) (test 6 % ttux=097) EOSINOPHILS RELATIVE PERCENT (BEAKER) (test 1 % ixdk=289) BASOPHILS RELATIVE PERCENT (BEAKER) (test 0 % pqto=586) NEUTROPHILS ABSOLUTE COUNT (BEAKER) (test 17.13 K/ L 1.56-6.13 qreh=903) LYMPHOCYTES ABSOLUTE COUNT (BEAKER) (test 2.17 K/ L 1.18-3.74 ixxx=645) MONOCYTES ABSOLUTE COUNT (BEAKER) (test 1.19 K/ L 0.24-0.36 vine=165) EOSINOPHILS ABSOLUTE COUNT (BEAKER) (test 0.17 K/ L 0.04-0.36 xybk=527) BASOPHILS ABSOLUTE COUNT (BEAKER) (test 0.03 K/ L 0.01-0.08 wvgj=983) IMMATURE GRANULOCYTES-RELATIVE PERCENT (BEAKER) 1 % 0-1 (test fsjs=4082) POCT-GLUCOSE [id number] 21:30:00 Test Item Value Reference Range Comments POC-GLUCOSE METER (BEAKER) 111 mg/dL 70-110 TESTED AT [address] (test uljq=6161) [place] [address] POCT-GLUCOSE [id number] 18:19:00 Test Item Value Reference Range Comments POC-GLUCOSE METER (BEAKER) 175 mg/dL 70-110 TESTED AT [address] (test yllo=9450) [place] [address] POCT-GLUCOSE [id number] 08:28:00 Test Item Value Reference Range Comments POC-GLUCOSE METER (BEAKER) 143 mg/dL 70-110 TESTED AT [address] (test mgjt=9441) [place] [address] BASIC METABOLIC [id number] 06:32:00 Test Item Value Reference Range Comments SODIUM (BEAKER) (test 134 meq/L 136-145 mhrg=870) POTASSIUM (BEAKER) (test 4.8 meq/L 3.5-5.1 jrei=868) CHLORIDE (BEAKER) (test 101 meq/L 98-107 wnnk=871) CO2 (BEAKER) (test 28 meq/L 22-29 wocr=484) BLOOD UREA NITROGEN 23 mg/dL 7-21 (BEAKER) (test tgtx=692) CREATININE (BEAKER) (test 0.66 mg/dL 0.57-1.25 eihk=147) GLUCOSE RANDOM (BEAKER) 107 mg/dL 70-105 (test ginh=771) CALCIUM (BEAKER) (test 9.3 mg/dL 8.4-10.2 ukxw=189) EGFR (BEAKER) (test mL/min/1.73 sq m INSUFFICIENT CLINICAL DATA bxjy=2093) TO CALCULATE ESTIMATED GFR. CBC W/PLT COUNT & AUTO [id number] 06:29:00 Test Item Value Reference Range Comments WHITE BLOOD CELL COUNT (BEAKER) (test ksru=497) 20.6 K/ L 3.5-10.5 RED BLOOD CELL COUNT (BEAKER) (test cwec=580) 4.79 M/ L 3.93-5.22 HEMOGLOBIN (BEAKER) (test wmcx=101) 12.1 GM/DL 11.2-15.7 HEMATOCRIT (BEAKER) (test nafx=200) 38.4 % 34.1-44.9 MEAN CORPUSCULAR VOLUME (BEAKER) (test obgn=876) 80.2 fL 79.4-94.8 MEAN CORPUSCULAR HEMOGLOBIN (BEAKER) (test 25.3 pg 25.6-32.2 epzl=639) MEAN CORPUSCULAR HEMOGLOBIN CONC (BEAKER) (test 31.5 GM/DL 32.2-35.5 numq=107) RED CELL DISTRIBUTION WIDTH (BEAKER) (test 15.7 % 11.7-14.4 lbnv=284) PLATELET COUNT (BEAKER) (test xpaq=973) 415 K/CU MM 150-450 MEAN PLATELET VOLUME (BEAKER) (test flig=168) 9.0 fL 9.4-12.3 NUCLEATED RED BLOOD CELLS (BEAKER) (test 0 /100 WBC 0-0 bjtp=870) NEUTROPHILS RELATIVE PERCENT (BEAKER) (test 79 % avwc=171) LYMPHOCYTES RELATIVE PERCENT (BEAKER) (test 11 % nayd=606) MONOCYTES RELATIVE PERCENT (BEAKER) (test 7 % hckw=418) EOSINOPHILS RELATIVE PERCENT (BEAKER) (test 2 % dpyl=116) BASOPHILS RELATIVE PERCENT (BEAKER) (test 0 % ghba=658) NEUTROPHILS ABSOLUTE COUNT (BEAKER) (test 16.22 K/ L 1.56-6.13 krxy=666) LYMPHOCYTES ABSOLUTE COUNT (BEAKER) (test 2.31 K/ L 1.18-3.74 frdn=335) MONOCYTES ABSOLUTE COUNT (BEAKER) (test 1.46 K/ L 0.24-0.36 dcsk=772) EOSINOPHILS ABSOLUTE COUNT (BEAKER) (test 0.37 K/ L 0.04-0.36 tddb=831) BASOPHILS ABSOLUTE COUNT (BEAKER) (test 0.03 K/ L 0.01-0.08 yhtj=222) IMMATURE GRANULOCYTES-RELATIVE PERCENT (BEAKER) 1 % 0-1 (test hgbl=2272) POCT-GLUCOSE [id number] 21:28:00 Test Item Value Reference Range Comments POC-GLUCOSE METER (BEAKER) 170 mg/dL 70-110 TESTED AT [address] (test trqv=6710) [place] [address] POCT-GLUCOSE [id number] 18:02:00 Test Item Value Reference Range Comments POC-GLUCOSE METER (BEAKER) 180 mg/dL 70-110 TESTED AT [address] (test acng=0472) [place] [id number] POCT-GLUCOSE [id number] 13:34:00 Test Item Value Reference Range Comments POC-GLUCOSE METER (BEAKER) 235 mg/dL 70-110 TESTED AT [address] (test ucie=5404) [facility] [address] MR, BRAIN, [id number] 12:29:00FINAL REPORT MRI Brain with and without [...] MDReport Verified Date/Time: 2017 12:29:16 Reading Location: [address] Neuro Reading Room CBC W/PLT COUNT & AUTO [id number] 07:59:00 Test Item Value Reference Range Comments WHITE BLOOD CELL COUNT (BEAKER) (test ufbm=586) 25.4 K/ L 3.5-10.5 RED BLOOD CELL COUNT (BEAKER) (test zyjx=048) 4.74 M/ L 3.93-5.22 HEMOGLOBIN (BEAKER) (test hfvb=140) 12.2 GM/DL 11.2-15.7 HEMATOCRIT (BEAKER) (test zzfy=489) 37.4 % 34.1-44.9 MEAN CORPUSCULAR VOLUME (BEAKER) (test iiaq=004) 78.9 fL 79.4-94.8 MEAN CORPUSCULAR HEMOGLOBIN (BEAKER) (test 25.7 pg 25.6-32.2 esbo=412) MEAN CORPUSCULAR HEMOGLOBIN CONC (BEAKER) (test 32.6 GM/DL 32.2-35.5 mcmj=411) RED CELL DISTRIBUTION WIDTH (BEAKER) (test 15.6 % 11.7-14.4 adbc=916) PLATELET COUNT (BEAKER) (test escx=486) 471 K/CU MM 150-450 MEAN PLATELET VOLUME (BEAKER) (test pibi=816) 9.1 fL 9.4-12.3 NUCLEATED RED BLOOD CELLS (BEAKER) (test 0 /100 WBC 0-0 sami=348) (CELLAVISION MANUAL DIFF)2018-03-08 07:59:00 Test Item Value Reference Range Comments NEUTROPHILS - REL (CELLAVISION)(BEAKER) (test 91 % iacc=3420) LYMPHOCYTES - REL (CELLAVISION)(BEAKER) (test 6 % kkeh=5106) MONOCYTES - REL (CELLAVISION)(BEAKER) (test 1 % utjz=6961) BANDS - REL (CELLAVISION)(BEAKER) (test 2 % 0-10 tkad=6093) NEUTROPHILS - ABS (CELLAVISION)(BEAKER) (test 23.11 K/ul 1.56-6.13 swwc=5046) LYMPHOCYTES - ABS (CELLAVISION)(BEAKER) (test 1.52 K/ul 1.18-3.74 qsuv=2071) MONOCYTES - ABS (CELLAVISION)(BEAKER) (test 0.25 K/uL 0.24-0.36 yxay=9172) BANDS - ABS (CELLAVISION)(BEAKER) (test 0.51 K/uL 0.00-0.80 qxvu=9042) TOTAL COUNTED (BEAKER) (test hnpi=4208) 100 WBC MORPHOLOGY (BEAKER) (test sdpj=855) Normal PLT MORPHOLOGY (BEAKER) (test gtsm=038) Normal POLYCHROMATOPHILLIC RBCS(BEAKER) (test imkd=922) 3+ many ANISOCYTOSIS (BEAKER) (test pkct=234) 2+ moderate MICROCYTES (BEAKER) (test vslq=771) 1+ few ARTIFACT (CELLAVISION)(BEAKER) (test bele=4545) Present PLATELET CONCENTRATION (CELLAVISION)(BEAKER) Increased (test oufb=9391) Received comment: User comments: Slide comments:BASIC METABOLIC [id number] 04:18:00 Test Item Value Reference Range Comments SODIUM (BEAKER) (test 133 meq/L 136-145 fwpn=915) POTASSIUM (BEAKER) (test 4.3 meq/L 3.5-5.1 uyqt=768) CHLORIDE (BEAKER) (test 101 meq/L 98-107 lbky=367) CO2 (BEAKER) (test 25 meq/L 22-29 nwuh=266) BLOOD UREA NITROGEN 17 mg/dL 7-21 (BEAKER) (test waix=344) CREATININE (BEAKER) (test 0.65 mg/dL 0.57-1.25 gafp=572) GLUCOSE RANDOM (BEAKER) 121 mg/dL 70-105 (test xknk=151) CALCIUM (BEAKER) (test 9.2 mg/dL 8.4-10.2 xxwm=187) EGFR (BEAKER) (test mL/min/1.73 sq m INSUFFICIENT CLINICAL DATA xnix=9445) TO CALCULATE ESTIMATED GFR. POCT-GLUCOSE [id number] 23:21:00 Test Item Value Reference Range Comments POC-GLUCOSE METER (BEAKER) 122 mg/dL 70-110 TESTED AT [address] (test yyxc=7636) [place] [address] POCT-GLUCOSE [id number] 22:02:00 Test Item Value Reference Range Comments POC-GLUCOSE METER (BEAKER) 122 mg/dL 70-110 TESTED AT [address] (test lhqu=5313) [place] [address] POCT-GLUCOSE [id number] 18:27:00 Test Item Value Reference Range Comments POC-GLUCOSE METER (BEAKER) 120 mg/dL 70-110 TESTED AT [address] (test ddni=9640) [place] [id number] POCT-GLUCOSE [id number] 12:26:00 Test Item Value Reference Range Comments POC-GLUCOSE METER (BEAKER) 130 mg/dL 70-110 TESTED AT [address] (test nlnb=3944) [place] [address] POCT-GLUCOSE [id number] 08:44:00 Test Item Value Reference Range Comments POC-GLUCOSE METER (BEAKER) 141 mg/dL 70-110 TESTED AT [address] (test akpt=4382) [place] [address] CBC W/PLT COUNT & AUTO [id number] 07:37:00 Test Item Value Reference Range Comments WHITE BLOOD CELL COUNT (BEAKER) (test lbqb=226) 27.9 K/ L 3.5-10.5 RED BLOOD CELL COUNT (BEAKER) (test hyra=862) 4.44 M/ L 3.93-5.22 HEMOGLOBIN (BEAKER) (test hnir=776) 11.3 GM/DL 11.2-15.7 HEMATOCRIT (BEAKER) (test ples=285) 35.2 % 34.1-44.9 MEAN CORPUSCULAR VOLUME (BEAKER) (test bwlr=099) 79.3 fL 79.4-94.8 MEAN CORPUSCULAR HEMOGLOBIN (BEAKER) (test 25.5 pg 25.6-32.2 xwgf=166) MEAN CORPUSCULAR HEMOGLOBIN CONC (BEAKER) (test 32.1 GM/DL 32.2-35.5 snvz=930) RED CELL DISTRIBUTION WIDTH (BEAKER) (test 15.2 % 11.7-14.4 rshx=415) PLATELET COUNT (BEAKER) (test jfbj=455) 491 K/CU MM 150-450 MEAN PLATELET VOLUME (BEAKER) (test onxk=139) 9.0 fL 9.4-12.3 NUCLEATED RED BLOOD CELLS (BEAKER) (test 0 /100 WBC 0-0 iqsf=285) (CELLAVISION MANUAL DIFF)2018-03-07 07:37:00 Test Item Value Reference Range Comments NEUTROPHILS - REL (CELLAVISION)(BEAKER) (test 91 % ofeg=4964) LYMPHOCYTES - REL (CELLAVISION)(BEAKER) (test 3 % efom=2294) MONOCYTES - REL (CELLAVISION)(BEAKER) (test 5 % quqg=7148) ATYPICAL LYMPHOCYTES - REL (CELLAVISION)(BEAKER) 1 % 0-0 (test yzyf=1049) NEUTROPHILS - ABS (CELLAVISION)(BEAKER) (test 25.39 K/ul 1.56-6.13 svnn=7822) LYMPHOCYTES - ABS (CELLAVISION)(BEAKER) (test 0.84 K/ul 1.18-3.74 zydv=9251) MONOCYTES - ABS (CELLAVISION)(BEAKER) (test 1.40 K/uL 0.24-0.36 regi=0995) ATYPICAL LYMPHOCYTES - ABS (CELLAVISION)(BEAKER) 0.28 K/uL 0.00-0.00 (test nhou=9035) TOTAL COUNTED (BEAKER) (test mbqq=5706) 100 WBC MORPHOLOGY (BEAKER) (test yoxo=101) Normal LARGE PLT(BEAKER) (test fblz=5248) Present POLYCHROMATOPHILLIC RBCS(BEAKER) (test kvyj=507) 1+ few ARTIFACT (CELLAVISION)(BEAKER) (test aisu=0576) Present PLATELET CONCENTRATION (CELLAVISION)(BEAKER) Increased (test ztie=2481) Received comment: User comments: Slide comments:BASIC METABOLIC [id number] 04:29:00 Test Item Value Reference Range Comments SODIUM (BEAKER) (test 134 meq/L 136-145 okba=256) POTASSIUM (BEAKER) (test 4.3 meq/L 3.5-5.1 pmaz=109) CHLORIDE (BEAKER) (test 104 meq/L 98-107 bvlr=321) CO2 (BEAKER) (test 23 meq/L 22-29 oizb=800) BLOOD UREA NITROGEN 18 mg/dL 7-21 (BEAKER) (test hrak=007) CREATININE (BEAKER) (test 0.63 mg/dL 0.57-1.25 yaaz=565) GLUCOSE RANDOM (BEAKER) 145 mg/dL 70-105 (test wlgb=997) CALCIUM (BEAKER) (test 8.8 mg/dL 8.4-10.2 kpkk=173) EGFR (BEAKER) (test mL/min/1.73 sq m INSUFFICIENT CLINICAL DATA iwkw=1514) TO CALCULATE ESTIMATED GFR. [id number] 04:28:00 Test Item Value Reference Range Comments PHOSPHORUS (BEAKER) (test tztz=179) 3.4 mg/dL 2.3-4.7 [id number] 04:28:00 Test Item Value Reference Range Comments MAGNESIUM (BEAKER) (test vquw=145) 1.9 mg/dL 1.6-2.6 POCT-GLUCOSE [id number] 22:29:00 Test Item Value Reference Range Comments POC-GLUCOSE METER (BEAKER) 147 mg/dL 70-[address] [facility] [address] [facility] (test ynyk=6946) [facility] [address] POCT-GLUCOSE [id number] 12:29:00 Test Item Value Reference Range Comments POC-GLUCOSE METER (BEAKER) 87 mg/dL 70-[address] [facility] [address] [facility] (test agfe=7728) [facility] [address] POCT-GLUCOSE [id number] 08:21:00 Test Item Value Reference Range Comments POC-GLUCOSE METER (BEAKER) 122 mg/dL 70-110 TESTED AT [address] (test blna=4184) [place] [address] [id number] 05:32:00 Test Item Value Reference Range Comments PROTIME (BEAKER) (test jgai=320) 13.1 seconds 11.7-14.7 INR (BEAKER) (test bapx=456) 1.0 <=5.9 PARTIAL THROMBOPLASTIN TIME (BEAKER) (test 24.2 seconds 22.5-36.0 bqsk=741) RECOMMENDED COUMADIN/WARFARIN INR THERAPY RANGESSTANDARD DOSE: 2.0 - 3.0 Includes: PROPHYLAXIS forvenous thrombosis, systemic embolization; TREATMENT for venous thrombosis and/or pulmonary embolus.HIGH RISK: Target INR is 2.5-3.5 for patients with mechanical heart valves.POCT-GLUCOSE [id number] 05:17:00 Test Item Value Reference Range Comments POC-GLUCOSE METER (BEAKER) 127 mg/dL 70-110 TESTED AT [address] (test ypxr=0559) [place] [id number] BASIC METABOLIC [id number] 05:16:00 Test Item Value Reference Range Comments SODIUM (BEAKER) (test 135 meq/L 136-145 gdqu=660) POTASSIUM (BEAKER) (test 4.1 meq/L 3.5-5.1 atbe=242) CHLORIDE (BEAKER) (test 103 meq/L 98-107 teia=704) CO2 (BEAKER) (test 22 meq/L 22-29 upqg=210) BLOOD UREA NITROGEN 19 mg/dL 7-21 (BEAKER) (test lqlz=321) CREATININE (BEAKER) (test 0.69 mg/dL 0.57-1.25 rass=077) GLUCOSE RANDOM (BEAKER) 131 mg/dL 70-105 (test luaz=419) CALCIUM (BEAKER) (test 9.3 mg/dL 8.4-10.2 wfya=303) EGFR (BEAKER) (test mL/min/1.73 sq m INSUFFICIENT CLINICAL DATA bjqp=4399) TO CALCULATE ESTIMATED GFR. CBC W/PLT COUNT & AUTO [id number] 04:56:00 Test Item Value Reference Range Comments WHITE BLOOD CELL COUNT (BEAKER) (test mlox=208) 22.3 K/ L 3.5-10.5 RED BLOOD CELL COUNT (BEAKER) (test ilnw=542) 4.71 M/ L 3.93-5.22 HEMOGLOBIN (BEAKER) (test vibf=646) 11.7 GM/DL 11.2-15.7 HEMATOCRIT (BEAKER) (test xjts=212) 37.1 % 34.1-44.9 MEAN CORPUSCULAR VOLUME (BEAKER) (test vfxs=799) 78.8 fL 79.4-94.8 MEAN CORPUSCULAR HEMOGLOBIN (BEAKER) (test 24.8 pg 25.6-32.2 kumu=358) MEAN CORPUSCULAR HEMOGLOBIN CONC (BEAKER) (test 31.5 GM/DL 32.2-35.5 agdw=051) RED CELL DISTRIBUTION WIDTH (BEAKER) (test 15.0 % 11.7-14.4 vqvv=166) PLATELET COUNT (BEAKER) (test oasj=880) 529 K/CU MM 150-450 MEAN PLATELET VOLUME (BEAKER) (test olhp=032) 8.9 fL 9.4-12.3 NUCLEATED RED BLOOD CELLS (BEAKER) (test 0 /100 WBC 0-0 jldb=065) NEUTROPHILS RELATIVE PERCENT (BEAKER) (test 84 % jgcg=848) LYMPHOCYTES RELATIVE PERCENT (BEAKER) (test 9 % xnkm=291) MONOCYTES RELATIVE PERCENT (BEAKER) (test 4 % jwkk=921) EOSINOPHILS RELATIVE PERCENT (BEAKER) (test 1 % rrwi=127) BASOPHILS RELATIVE PERCENT (BEAKER) (test 0 % fzcx=442) NEUTROPHILS ABSOLUTE COUNT (BEAKER) (test 18.70 K/ L 1.56-6.13 tdwv=670) LYMPHOCYTES ABSOLUTE COUNT (BEAKER) (test 2.04 K/ L 1.18-3.74 gmnx=611) MONOCYTES ABSOLUTE COUNT (BEAKER) (test 0.99 K/ L 0.24-0.36 kuhi=786) EOSINOPHILS ABSOLUTE COUNT (BEAKER) (test 0.12 K/ L 0.04-0.36 cgmx=549) BASOPHILS ABSOLUTE COUNT (BEAKER) (test 0.05 K/ L 0.01-0.08 xjmj=024) IMMATURE GRANULOCYTES-RELATIVE PERCENT (BEAKER) 2 % 0-1 (test vris=8550) POCT-GLUCOSE [id number] 22:07:00 Test Item Value Reference Range Comments POC-GLUCOSE METER (BEAKER) 157 mg/dL 70-[address] [facility] [address] [facility] (test ezio=5120) [facility] [address] POCT-GLUCOSE [id number] 16:55:00 Test Item Value Reference Range Comments POC-GLUCOSE METER (BEAKER) 146 mg/dL 70-[address] 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 Right upper lobe endobronchial biopsy. B. Right [...] stains. BLOCK B1- TTF1, NAPSIN A, ER, BER4Swujzikczqzaromyzgor technical testing was performed at [facility], Pathology Laboratory where it was [...] complexity clinical laboratory testing.FINE NEEDLE ASPIRATE BY [id number] 12 :41:00Medical Cytology Report Case: [id number] Authorizing Provider: Robert Tirado MD Collected: 03/04/2018 1023 Ordering Location: [address] Received: 03/04/2018 1244 Service Pathologist: Ben Vila MD Specimen: Lymph Node, Interlobar, Right, Station 11R LYMPH NODE, INTERLOBAR RIGHT, STATION 11R EBUS FNA BY CLINICIAN (CYTOSPINS OF ASPIRATE): - NEGATIVE FOR MALIGNANCY - LYMPHOCYTES PRESENT Signing Pathologist Direct Phone Line: [phone] signed by Ben Vila MD on 2017 at 12:41 PMPlease also see surgical pathology report [id number] and cytopathology reports [id number], 3646, 3647 and 3648. [id number] massLYMPH NODE, INTERLOBAR RIGHT, STATION 11R EBUS FNA40 mls in cytorich red; 2 cytospinsCollected: [id number]: [id number] interpretation of this case included the use of immunohistochemistry or special stains. Immunohistochemistry technical testing was performed at [facility], Pathology Laboratory where it was [...] certified under the Clinical Laboratory Improvement Amendments [id number] (CLIA-88) as qualified to perform high complexity clinical laboratory testing.[facility], Department of Pathology, [address] [place] [address], [facility], [facility] of [facility]ology , [address] [place] [address], LcvpvdK[facility], Department of Pathology, [address] [place] [address] , UEML NEEDLE ASPIRATE BY [id number] 12:40:00Medical Cytology Report Case: [id number] Authorizing Provider: Robert Tirado MD Collected: 03/04/2018 1008 Ordering Location: [address] Received: 03/04/2018 1244 Service Pathologist: Ben Vila MD Specimen: Lymph Node, Lower Paratracheal, Right, Station 4R LYMPH NODE, LOWER PARATRACHEAL, RIGHT, STATION 4R EBUS FNA BY CLINICIAN (CYTOSPINS AND CELL BLOCK OF ASPIRATE): - NEGATIVE FOR MALIGNANCY Signing Pathologist Direct Phone Line: Smears and cell block show good sampling of anthracotic lymph node without granuloma or neoplasm.Please also see surgical pathology report [id number] and cytopathology reports [id number], 3646, 3647 and 3649. [id number], [id number] massLYMPH NODE, LOWER PARATRACHEAL, RIGHT, STATION 4R EBUS FNA40 mls in cytorich red; 2 cytospins, cell blockCollected: [id number]: [id number] interpretation of this case included the use of immunohistochemistry or special stains. Immunohistochemistry technical testing was performed at [facility], Pathology Laboratory where it was [...] qualified to perform high complexity clinical laboratory testing.[facility], Department of Pathology, [address] [place] [address], [facility], [facility], [address] [place] [address], [facility], Department of [facility]ology, [address] [place] [address], DFLW NEEDLE ASPIRATE BY [id number] 12:38: 00Medical Cytology Report Case: [id number] Authorizing Provider: Robert Tirado MD Collected : 03/04/2018 1002 Ordering Location: [address] Received: 03/04/2018 1244 Service Pathologist: Ben Vila MD Specimen: Lymph Node, Subcarinal, Station 7 LYMPH NODE, SUBCARINAL, STATION 7 EBUS FNA BY CLINICIAN (CYTOSPINS AND CELL BLOCK OF ASPIRATE): - NEGATIVE FOR MALIGNANCY Signing Pathologist Direct Phone Line: Smears and cell block show good sampling of anthracotic lymph nodewithout granuloma or neoplasm.Please also see surgical pathology report [id number] and cytopathology reports [id number], 3646, 3648 and 3649. [id number], [id number] massLYMPH NODE, SUBCARINAL, STATION 7 FNAPrepared cell block(A2) and 2 cytospins from 40 ml cytorich red fixative specimen Collected: [id number]: [id number] interpretation of this case included the use of immunohistochemistry or special stains.Immunohistochemistry technical testing was performed at [facility], Pathology Laboratory where it was developed and [...] qualified to perform high complexity clinical laboratory testing.[facility], Department of Pathology, [address] [place] [address], [facility], Department of Pathology, [address] [place] [address], Tel JK[facility], Department of Pathology, [address] [place] [address], BSFA NEEDLE ASPIRATE BY [id number] 12:35:00Medical Cytology Report Case: [id number] Authorizing Provider: Robert Tirado MD Collected: 03/04/2018 1001 Ordering Location: [address] Received: 03/04/2018 1244 Service Pathologist: Ben Vila MD Specimen: Lymph Node, Lower Paratracheal , Left, Station 4L LYMPH NODE, LOWER PARATRACHEAL, LEFT, STATION 4L, FNA BY CLINICIAN (CYTOSPINS OF ASPIRATE): - NEGATIVE FOR MALIGNANCY PREDOMINANTLY BRONCHIAL EPITHELIAL CELLS Signing Pathologist Direct Phone Line: [phone] signed by Ben Vila MD on 03/05/2018 at 12:35 PMPlease also see surgical pathology report [id number] and cytopathology reports [id number], 3647, 3648 and 3649. [id number] massLYMPH NODE, LOWER PARATRACHEAL, LEFT, STATION 4L FNAPrepared 2 cytospins from 40 ml cytorich red fixative sampleCollected: [id number]: [id number] interpretation of this case included the use of immunohistochemistry or special stains. Immunohistochemistry technical testing was performed at [facility], Pathology Laboratory where it was [...] qualified to perform high complexity clinical laboratory testing.[facility], Department of Pathology, [address] [place] [address], [facility], [address] [place] [address], Tel [facility], [facility], [address] [place] [address], PTFU-GLUCOSE [id number] 12:34:00 Test Item Value Reference Range Comments POC-GLUCOSE METER (BEAKER) 119 mg/dL 70-110 TESTED AT [address] (test ulah=4117) [facility] [address] FINE NEEDLE ASPIRATE BY [id number] 12:34:00Medical Cytology Report Case: [id number] Authorizing Provider: Robert Tirado MD Collected: 03/04/2018 1001 Ordering Location: [address] Received: 1244 Service Pathologist: Ben Vila MD Specimen: Lymph Node, Interlobar, Left, Station 11L LYMPH NODE, INTERLOBAR, LEFT, STATION 11L, FNA BY CLINICIAN ( CYTOSPINS AND CELL BLOCK OF ASPIRATE): - NEGATIVE FOR MALIGNANCY Signing Pathologist Direct Phone Line: [phone] signed by Ben Vila MD on 03/05/2018 at 12:34 PMSmears and cell block show good sampling of anthracotic lymph node without granuloma or neoplasm.Please also see surgical pathology report [id number] and cytopathology reports [id number], 3647 , 3648 and 3649. [address], [address]Cwwo massLYMPH NODE, INTERLOBAR, LEFT, [id number] FNAPrepared cell block(A2) and 2 cytospins from 45 ml cytorich red fixative sampleCollected: [id number]: [id number] interpretation of this case included the use of immunohistochemistry or special stains. Immunohistochemistry technical testing was performed at [facility], Pathology Laboratory where it was [...] qualified to perform high complexity clinical laboratory testing.[facility], Department of Pathology, [address] [place] [address], Tel [facility], [address] [place] [address], [facility], [facility] of [facility], [address] [place] [address], Tel [phone]-GAHSHFH [id number] 08:25:00 Test Item Value Reference Range Comments POC-GLUCOSE METER (BEAKER) 114 mg/dL 70-110 TESTED AT [address] (test ypmp=5497) [facility] [address] BASIC METABOLIC [id number] 05:45:00 Test Item Value Reference Range Comments SODIUM (BEAKER) (test 136 meq/L 136-145 hrwc=683) POTASSIUM (BEAKER) (test 4.5 meq/L 3.5-5.1 Specimen slightly mvmn=570) hemolyzed CHLORIDE (BEAKER) (test 104 meq/L 98-107 cius=595) CO2 (BEAKER) (test 24 meq/L 22-29 dlyq=669) BLOOD UREA NITROGEN 18 mg/dL 7-21 (BEAKER) (test xevq=357) CREATININE (BEAKER) (test 0.72 mg/dL 0.57-1.25 Specimen slightly qtfs=505) hemolyzed GLUCOSE RANDOM (BEAKER) 126 mg/dL 70-105 (test wznt=408) CALCIUM (BEAKER) (test 9.8 mg/dL 8.4-10.2 xiqw=714) EGFR (BEAKER) (test mL/min/1.73 sq m INSUFFICIENT CLINICAL DATA djzq=0519) TO CALCULATE ESTIMATED GFR. CBC W/PLT COUNT & AUTO [id number] 05:42:00 Test Item Value Reference Range Comments WHITE BLOOD CELL COUNT (BEAKER) (test iaou=043) 22.5 K/ L 3.5-10.5 RED BLOOD CELL COUNT (BEAKER) (test zdah=553) 5.03 M/ L 3.93-5.22 HEMOGLOBIN (BEAKER) (test chbt=758) 12.6 GM/DL 11.2-15.7 HEMATOCRIT (BEAKER) (test wtxy=108) 40.7 % 34.1-44.9 MEAN CORPUSCULAR VOLUME (BEAKER) (test lrof=339) 80.9 fL 79.4-94.8 MEAN CORPUSCULAR HEMOGLOBIN (BEAKER) (test 25.0 pg 25.6-32.2 hsyo=850) MEAN CORPUSCULAR HEMOGLOBIN CONC (BEAKER) (test 31.0 GM/DL 32.2-35.5 ywnj=337) RED CELL DISTRIBUTION WIDTH (BEAKER) (test 15.0 % 11.7-14.4 qmje=741) PLATELET COUNT (BEAKER) (test qrrf=031) 543 K/CU MM 150-450 MEAN PLATELET VOLUME (BEAKER) (test hzyd=607) 9.5 fL 9.4-12.3 NUCLEATED RED BLOOD CELLS (BEAKER) (test 0 /100 WBC 0-0 womk=371) NEUTROPHILS RELATIVE PERCENT (BEAKER) (test 86 % ecyl=074) LYMPHOCYTES RELATIVE PERCENT (BEAKER) (test 8 % tydj=752) MONOCYTES RELATIVE PERCENT (BEAKER) (test 4 % jysv=861) EOSINOPHILS RELATIVE PERCENT (BEAKER) (test 0 % gpgk=114) BASOPHILS RELATIVE PERCENT (BEAKER) (test 0 % vsyc=317) NEUTROPHILS ABSOLUTE COUNT (BEAKER) (test 19.38 K/ L 1.56-6.13 fnjx=556) LYMPHOCYTES ABSOLUTE COUNT (BEAKER) (test 1.81 K/ L 1.18-3.74 onqe=043) MONOCYTES ABSOLUTE COUNT (BEAKER) (test 0.99 K/ L 0.24-0.36 mtui=396) EOSINOPHILS ABSOLUTE COUNT (BEAKER) (test 0.05 K/ L 0.04-0.36 jynf=647) BASOPHILS ABSOLUTE COUNT (BEAKER) (test 0.04 K/ L 0.01-0.08 evtu=289) IMMATURE GRANULOCYTES-RELATIVE PERCENT (BEAKER) 1 % 0-1 (test acnp=8602) BLOOD [id number] 23:01:00 Test Item Value Reference Range Comments CULTURE (BEAKER) (test bhdp=6165) No growth in 5 days POCT-GLUCOSE [id number] 20:32:00 Test Item Value Reference Range Comments POC-GLUCOSE METER (BEAKER) 122 mg/dL 70-110 TESTED AT [address] (test hlpx=4371) [place] [address] POCT-GLUCOSE [id number] 17:53:00 Test Item Value Reference Range Comments POC-GLUCOSE METER (BEAKER) 199 mg/dL 70-110 TESTED AT [address] (test ovyn=3030) [place] [address] EBUS FNA [id number] 14:00:00 Test Item Value Reference Range Comments CYTOLOGY RESULT POINTER (BEAKER) (test See Separate Report oufw=2617) EBUS FNA [id number] 14:00:00 Test Item Value Reference Range Comments CYTOLOGY RESULT POINTER (BEAKER) (test See Separate Report pwxb=7580) EBUS FNA [id number] 14:00:00 Test Item Value Reference Range Comments CYTOLOGY RESULT POINTER (BEAKER) (test See Separate Report wtvw=5677) EBUS FNA [id number] 14:00:00 Test Item Value Reference Range Comments CYTOLOGY RESULT POINTER (BEAKER) (test See Separate Report aaqa=0498) EBUS FNA [id number] 14:00:00 Test Item Value Reference Range Comments CYTOLOGY RESULT POINTER (BEAKER) (test See Separate Report feuv=5554) POCT-GLUCOSE [id number] 12:06:00 Test Item Value Reference Range Comments POC-GLUCOSE METER (BEAKER) 114 mg/dL 70-110 TESTED AT [address] (test ohsc=5824) [place] [address] BLOOD [id number] 10:00:00 Test Item Value Reference Range Comments CULTURE (BEAKER) (test fwnd=4668) No growth in 5 days POCT-GLUCOSE [id number] 08:22:00 Test Item Value Reference Range Comments POC-GLUCOSE METER (BEAKER) 120 mg/dL 70-110 TESTED AT [address] (test ulim=5841) [place] [address] [id number] 06:39:00 Test Item Value Reference Range Comments PARTIAL THROMBOPLASTIN TIME (BEAKER) (test 25.2 seconds 22.5-36.0 kddq=423) PROTHROMBIN TIME/[id number] 06:38:00 Test Item Value Reference Range Comments PROTIME (BEAKER) (test bovz=341) 13.6 seconds 11.7-14.7 INR (BEAKER) (test vgqe=619) 1.0 <=5.9 RECOMMENDED COUMADIN/WARFARIN INR THERAPY RANGESSTANDARD DOSE: 2.0 - 3.0 Includes: PROPHYLAXIS forvenous thrombosis, systemic embolization; TREATMENT for venous thrombosis and/or pulmonary embolus.HIGH RISK: Target INR is 2.5-3.5 for patients with mechanical heart valves.BASIC METABOLIC [id number] 06:38: 00 Test Item Value Reference Range Comments SODIUM (BEAKER) (test 136 meq/L 136-145 pyck=782) POTASSIUM (BEAKER) (test 4.4 meq/L 3.5-5.1 jthi=856) CHLORIDE (BEAKER) (test 105 meq/L 98-107 grkd=506) CO2 (BEAKER) (test 23 meq/L 22-29 xorb=361) BLOOD UREA NITROGEN 19 mg/dL 7-21 (BEAKER) (test yfiy=034) CREATININE (BEAKER) (test 0.66 mg/dL 0.57-1.25 fdoy=847) GLUCOSE RANDOM (BEAKER) 120 mg/dL 70-105 (test gwmt=289) CALCIUM (BEAKER) (test 9.9 mg/dL 8.4-10.2 jjdo=957) EGFR (BEAKER) (test mL/min/1.73 sq m INSUFFICIENT CLINICAL DATA rlwt=0450) TO CALCULATE ESTIMATED GFR. CBC W/PLT COUNT & AUTO [id number] 06:19:00 Test Item Value Reference Range Comments WHITE BLOOD CELL COUNT (BEAKER) (test dqiu=461) 22.5 K/ L 3.5-10.5 RED BLOOD CELL COUNT (BEAKER) (test ptnd=749) 4.92 M/ L 3.93-5.22 HEMOGLOBIN (BEAKER) (test ovzm=033) 12.4 GM/DL 11.2-15.7 HEMATOCRIT (BEAKER) (test viom=204) 39.7 % 34.1-44.9 MEAN CORPUSCULAR VOLUME (BEAKER) (test likp=247) 80.7 fL 79.4-94.8 MEAN CORPUSCULAR HEMOGLOBIN (BEAKER) (test 25.2 pg 25.6-32.2 itxd=548) MEAN CORPUSCULAR HEMOGLOBIN CONC (BEAKER) (test 31.2 GM/DL 32.2-35.5 umag=113) RED CELL DISTRIBUTION WIDTH (BEAKER) (test 14.6 % 11.7-14.4 odxr=590) PLATELET COUNT (BEAKER) (test knwr=350) 570 K/CU MM 150-450 MEAN PLATELET VOLUME (BEAKER) (test sdjq=527) 9.0 fL 9.4-12.3 NUCLEATED RED BLOOD CELLS (BEAKER) (test 0 /100 WBC 0-0 ncbk=206) NEUTROPHILS RELATIVE PERCENT (BEAKER) (test 83 % nert=491) LYMPHOCYTES RELATIVE PERCENT (BEAKER) (test 11 % tngq=473) MONOCYTES RELATIVE PERCENT (BEAKER) (test 5 % vyng=980) EOSINOPHILS RELATIVE PERCENT (BEAKER) (test 0 % llgb=211) BASOPHILS RELATIVE PERCENT (BEAKER) (test 0 % yihn=786) NEUTROPHILS ABSOLUTE COUNT (BEAKER) (test 18.65 K/ L 1.56-6.13 uqgm=571) LYMPHOCYTES ABSOLUTE COUNT (BEAKER) (test 2.36 K/ L 1.18-3.74 zxly=458) MONOCYTES ABSOLUTE COUNT (BEAKER) (test 1.01 K/ L 0.24-0.36 tmen=462) EOSINOPHILS ABSOLUTE COUNT (BEAKER) (test 0.09 K/ L 0.04-0.36 eoqm=437) BASOPHILS ABSOLUTE COUNT (BEAKER) (test 0.07 K/ L 0.01-0.08 cpug=242) IMMATURE GRANULOCYTES-RELATIVE PERCENT (BEAKER) 2 % 0-1 (test eemy=5832) POCT-GLUCOSE [id number] 22:29:00 Test Item Value Reference Range Comments POC-GLUCOSE METER (BEAKER) 175 mg/dL 70-110 TESTED AT [place] [id number] [facility] (test brpn=5186) [facility] [address] BONE AND/OR JOINT IMAGING, WHOLE [id number] 15:34:00No histologic dx yet, but brain met with lung mass.FINAL REPORT PROCEDURE: BONE SCAN, WHOLE BODY CPT CODE: [id number] INDICATION: Right lung cancer with cerebellar metastasis [...] Verified Date/Time: 03/03/2018 15:34: 30 Reading Location: [address] Reading Room POCT-GLUCOSE [id number] 11:44:00 Test Item Value Reference Range Comments POC-GLUCOSE METER (BEAKER) 180 mg/dL 70-110 TESTED AT [address] (test eyrl=3313) [facility] [address] POCT-GLUCOSE [id number] 08:31:00 Test Item Value Reference Range Comments POC-GLUCOSE METER (BEAKER) 111 mg/dL 70-110 TESTED AT [address] (test nabg=7033) [facility] [address] CBC W/PLT COUNT & AUTO [id number] 05:37:00 Test Item Value Reference Range Comments WHITE BLOOD CELL COUNT (BEAKER) (test bwfz=485) 18.9 K/ L 3.5-10.5 RED BLOOD CELL COUNT (BEAKER) (test qdfh=955) 4.58 M/ L 3.93-5.22 HEMOGLOBIN (BEAKER) (test nidj=365) 11.6 GM/DL 11.2-15.7 HEMATOCRIT (BEAKER) (test xbai=434) 36.7 % 34.1-44.9 MEAN CORPUSCULAR VOLUME (BEAKER) (test mebl=035) 80.1 fL 79.4-94.8 MEAN CORPUSCULAR HEMOGLOBIN (BEAKER) (test 25.3 pg 25.6-32.2 nbze=316) MEAN CORPUSCULAR HEMOGLOBIN CONC (BEAKER) (test 31.6 GM/DL 32.2-35.5 kotf=201) RED CELL DISTRIBUTION WIDTH (BEAKER) (test 14.4 % 11.7-14.4 nfqp=668) PLATELET COUNT (BEAKER) (test mpjg=001) 505 K/CU MM 150-450 MEAN PLATELET VOLUME (BEAKER) (test zqbi=417) 9.1 fL 9.4-12.3 NUCLEATED RED BLOOD CELLS (BEAKER) (test 0 /100 WBC 0-0 vysv=686) NEUTROPHILS RELATIVE PERCENT (BEAKER) (test 82 % vofp=365) LYMPHOCYTES RELATIVE PERCENT (BEAKER) (test 11 % uvhc=513) MONOCYTES RELATIVE PERCENT (BEAKER) (test 5 % clbg=658) EOSINOPHILS RELATIVE PERCENT (BEAKER) (test 1 % jgsj=820) BASOPHILS RELATIVE PERCENT (BEAKER) (test 0 % fgyv=460) NEUTROPHILS ABSOLUTE COUNT (BEAKER) (test 15.57 K/ L 1.56-6.13 fqzm=635) LYMPHOCYTES ABSOLUTE COUNT (BEAKER) (test 2.05 K/ L 1.18-3.74 waeq=846) MONOCYTES ABSOLUTE COUNT (BEAKER) (test 0.92 K/ L 0.24-0.36 dghk=792) EOSINOPHILS ABSOLUTE COUNT (BEAKER) (test 0.13 K/ L 0.04-0.36 hbnc=146) BASOPHILS ABSOLUTE COUNT (BEAKER) (test 0.01 K/ L 0.01-0.08 drwh=097) IMMATURE GRANULOCYTES-RELATIVE PERCENT (BEAKER) 1 % 0-1 (test mqqn=4541) POCT-GLUCOSE [id number] 21:27:00 Test Item Value Reference Range Comments POC-GLUCOSE METER (BEAKER) 202 mg/dL 70-110 TESTED AT [address] (test lcoq=5847) [place] [address] POCT-GLUCOSE [id number] 13:34:00 Test Item Value Reference Range Comments POC-GLUCOSE METER (BEAKER) 94 mg/dL 70-110 TESTED AT [address] (test cxaz=4835) [place] [address] POCT-GLUCOSE [id number] 08:43:00 Test Item Value Reference Range Comments POC-GLUCOSE METER (BEAKER) 118 mg/dL 70-110 TESTED AT [address] (test cklq=2326) [place] [address] URINALYSIS W/ REFLEX URINE [id number] 07:40:00 Test Item Value Reference Range Comments COLOR (BEAKER) (test xtgo=020) Light Yellow CLARITY (BEAKER) (test fjqd=060) Hazy SPECIFIC GRAVITY UA (BEAKER) (test bena=715) 1.019 1.001-1.035 PH UA (BEAKER) (test tohn=092) 7.0 5.0-8.0 PROTEIN UA (BEAKER) (test lpny=790) Negative Negative GLUCOSE UA (BEAKER) (test tyed=948) Negative Negative KETONES UA (BEAKER) (test fxwr=842) Negative Negative BILIRUBIN UA (BEAKER) (test whfs=805) Negative Negative BLOOD UA (BEAKER) (test jlaq=944) Negative Negative NITRITE UA (BEAKER) (test dsgl=332) Negative Negative LEUKOCYTE ESTERASE UA (BEAKER) (test hitu=356) Negative Negative UROBILINOGEN UA (BEAKER) (test sfmt=613) 0.2 mg/dL 0.2-1.0 RBC UA (BEAKER) (test vljg=748) 2 /HPF WBC UA (BEAKER) (test wxfb=486) 0 /HPF MUCUS (BEAKER) (test tlgg=7958) Rare SQUAMOUS EPITHELIAL (BEAKER) (test wbpl=675) < /HPF SOURCE(BEAKER) (test ezid=8732) BASIC METABOLIC [id number] 07:17:00 Test Item Value Reference Range Comments SODIUM (BEAKER) (test 136 meq/L 136-145 dfwm=965) POTASSIUM (BEAKER) (test 4.1 meq/L 3.5-5.1 uiwv=706) CHLORIDE (BEAKER) (test 106 meq/L 98-107 bsbd=993) CO2 (BEAKER) (test 23 meq/L 22-29 iqlo=322) BLOOD UREA NITROGEN 21 mg/dL 7-21 (BEAKER) (test fmxq=835) CREATININE (BEAKER) (test 0.76 mg/dL 0.57-1.25 ufwh=150) GLUCOSE RANDOM (BEAKER) 115 mg/dL 70-105 (test nqtz=211) CALCIUM (BEAKER) (test 9.7 mg/dL 8.4-10.2 vide=905) EGFR (BEAKER) (test mL/min/1.73 sq m INSUFFICIENT CLINICAL DATA gfxl=9137) TO CALCULATE ESTIMATED GFR. CBC W/PLT COUNT & AUTO [id number] 06:15:00 Test Item Value Reference Range Comments WHITE BLOOD CELL COUNT (BEAKER) (test pbne=864) 18.3 K/ L 3.5-10.5 RED BLOOD CELL COUNT (BEAKER) (test kbdm=923) 4.56 M/ L 3.93-5.22 HEMOGLOBIN (BEAKER) (test aggl=831) 11.3 GM/DL 11.2-15.7 HEMATOCRIT (BEAKER) (test abqq=692) 36.2 % 34.1-44.9 MEAN CORPUSCULAR VOLUME (BEAKER) (test xrpp=343) 79.4 fL 79.4-94.8 MEAN CORPUSCULAR HEMOGLOBIN (BEAKER) (test 24.8 pg 25.6-32.2 oefu=609) MEAN CORPUSCULAR HEMOGLOBIN CONC (BEAKER) (test 31.2 GM/DL 32.2-35.5 bcxp=981) RED CELL DISTRIBUTION WIDTH (BEAKER) (test 14.5 % 11.7-14.4 lctl=765) PLATELET COUNT (BEAKER) (test rrht=691) 529 K/CU MM 150-450 MEAN PLATELET VOLUME (BEAKER) (test zdfv=728) 8.9 fL 9.4-12.3 NUCLEATED RED BLOOD CELLS (BEAKER) (test 0 /100 WBC 0-0 vbvt=362) NEUTROPHILS RELATIVE PERCENT (BEAKER) (test 85 % zrld=806) LYMPHOCYTES RELATIVE PERCENT (BEAKER) (test 9 % gtsw=362) MONOCYTES RELATIVE PERCENT (BEAKER) (test 5 % scbt=696) EOSINOPHILS RELATIVE PERCENT (BEAKER) (test 0 % hqcx=728) BASOPHILS RELATIVE PERCENT (BEAKER) (test 0 % puyf=691) NEUTROPHILS ABSOLUTE COUNT (BEAKER) (test 15.60 K/ L 1.56-6.13 uaru=861) LYMPHOCYTES ABSOLUTE COUNT (BEAKER) (test 1.67 K/ L 1.18-3.74 pkyy=283) MONOCYTES ABSOLUTE COUNT (BEAKER) (test 0.84 K/ L 0.24-0.36 gohh=492) EOSINOPHILS ABSOLUTE COUNT (BEAKER) (test 0.04 K/ L 0.04-0.36 wkxd=013) BASOPHILS ABSOLUTE COUNT (BEAKER) (test 0.03 K/ L 0.01-0.08 yprl=802) IMMATURE GRANULOCYTES-RELATIVE PERCENT (BEAKER) 1 % 0-1 (test pkph=1945) POCT-GLUCOSE [id number] 21:08:00 Test Item Value Reference Range Comments POC-GLUCOSE METER (BEAKER) 175 mg/dL 70-[address] [facility] [address] [facility] (test oxoy=3225) [facility] [address] POCT-GLUCOSE [id number] 17:48:00 Test Item Value Reference Range Comments POC-GLUCOSE METER (BEAKER) 114 mg/dL 70-110 TESTED AT [address] (test aasv=4997) [facility] [address] POCT-GLUCOSE [id number] 12:27:00 Test Item Value Reference Range Comments POC-GLUCOSE METER (BEAKER) 119 mg/dL 70-110 TESTED AT [address] (test egig=6673) [facility] [address] BASIC METABOLIC [id number] 08:12:00 Test Item Value Reference Range Comments SODIUM (BEAKER) (test 136 meq/L 136-145 dsjx=041) POTASSIUM (BEAKER) (test 4.1 meq/L 3.5-5.1 toqi=714) CHLORIDE (BEAKER) (test 105 meq/L 98-107 eybr=142) CO2 (BEAKER) (test 22 meq/L 22-29 xkua=148) BLOOD UREA NITROGEN 19 mg/dL 7-21 (BEAKER) (test nwue=486) CREATININE (BEAKER) (test 0.65 mg/dL 0.57-1.25 qzre=140) GLUCOSE RANDOM (BEAKER) 110 mg/dL 70-105 (test dxaw=296) CALCIUM (BEAKER) (test 9.8 mg/dL 8.4-10.2 ftur=725) EGFR (BEAKER) (test mL/min/1.73 sq m INSUFFICIENT CLINICAL DATA tcnn=5793) TO CALCULATE ESTIMATED GFR. CBC W/PLT COUNT & AUTO [id number] 07:21:00 Test Item Value Reference Range Comments WHITE BLOOD CELL COUNT (BEAKER) (test fgeo=654) 20.8 K/ L 3.5-10.5 RED BLOOD CELL COUNT (BEAKER) (test yfpt=339) 4.46 M/ L 3.93-5.22 HEMOGLOBIN (BEAKER) (test ahdj=233) 11.2 GM/DL 11.2-15.7 HEMATOCRIT (BEAKER) (test ryrb=488) 35.1 % 34.1-44.9 MEAN CORPUSCULAR VOLUME (BEAKER) (test keqs=899) 78.7 fL 79.4-94.8 MEAN CORPUSCULAR HEMOGLOBIN (BEAKER) (test 25.1 pg 25.6-32.2 kaih=088) MEAN CORPUSCULAR HEMOGLOBIN CONC (BEAKER) (test 31.9 GM/DL 32.2-35.5 nkqj=369) RED CELL DISTRIBUTION WIDTH (BEAKER) (test 14.2 % 11.7-14.4 wmvi=652) PLATELET COUNT (BEAKER) (test qeld=798) 549 K/CU MM 150-450 MEAN PLATELET VOLUME (BEAKER) (test bbzu=687) 9.0 fL 9.4-12.3 NUCLEATED RED BLOOD CELLS (BEAKER) (test 0 /100 WBC 0-0 raao=920) NEUTROPHILS RELATIVE PERCENT (BEAKER) (test 86 % salb=774) LYMPHOCYTES RELATIVE PERCENT (BEAKER) (test 9 % gcof=580) MONOCYTES RELATIVE PERCENT (BEAKER) (test 4 % ypip=782) EOSINOPHILS RELATIVE PERCENT (BEAKER) (test 0 % glvx=989) BASOPHILS RELATIVE PERCENT (BEAKER) (test 0 % cdku=660) NEUTROPHILS ABSOLUTE COUNT (BEAKER) (test 17.91 K/ L 1.56-6.13 jeig=600) LYMPHOCYTES ABSOLUTE COUNT (BEAKER) (test 1.79 K/ L 1.18-3.74 jbzp=555) MONOCYTES ABSOLUTE COUNT (BEAKER) (test 0.81 K/ L 0.24-0.36 vqcf=246) EOSINOPHILS ABSOLUTE COUNT (BEAKER) (test 0.03 K/ L 0.04-0.36 uboj=737) BASOPHILS ABSOLUTE COUNT (BEAKER) (test 0.04 K/ L 0.01-0.08 rfhx=771) IMMATURE GRANULOCYTES-RELATIVE PERCENT (BEAKER) 1 % 0-1 (test xuat=8204) POCT-GLUCOSE [id number] 06:08:00 Test Item Value Reference Range Comments POC-GLUCOSE METER (BEAKER) 113 mg/dL 70-[address] [facility] [address] (test dqpn=5525) [facility] [address] POCT-GLUCOSE [id number] 18:58:00 Test Item Value Reference Range Comments POC-GLUCOSE METER (BEAKER) 117 mg/dL 70-[address] [facility] [address] (test ykys=7753) [facility] [address] CT, CHEST, WITH [id number] 15:20:00FINAL REPORT CT of the Chest, abdomen [...] Verified Date/Time: 02/28/2018 15:20: 36 Reading Location: [facility] C013Y CT Body Reading Room CT, [id number] 15:20: 00FINAL REPORT CT of the Chest, [...] MDRort Verified Date/Time: 02/28/2018 15:20:36 Reading Location: [facility] B1 C013Y CT Body Reading Room POCT-GLUCOSE [id number] 08:55:00 Test Item Value Reference Range Comments POC-GLUCOSE METER (NEENA) 125 mg/dL 70-[address] [facility] [address] [facility] (test dumt=7200) [facility] [address] MR, BRAIN, [id number] 07:59:00STEALTH protocolFINAL REPORT MRI Brain with and [...] Verified Date/Time : 02/28/2018 07:59:07 Reading Location: [facility] [id number] Neuro Reading Room POCT- GLUCOSE [id number] 06:39:00 Test Item Value Reference Range Comments POC-GLUCOSE METER (BEAKER) 150 mg/dL 70-[address] [facility] [address] [facility] (test sevo=6394) [facility] [address] BASIC METABOLIC [id number] 05:51:00 Test Item Value Reference Range Comments SODIUM (BEAKER) (test 137 meq/L 136-145 ucjm=489) POTASSIUM (BEAKER) (test 3.8 meq/L 3.5-5.1 vqng=981) CHLORIDE (BEAKER) (test 104 meq/L 98-107 uqei=552) CO2 (BEAKER) (test 24 meq/L 22-29 bmdr=492) BLOOD UREA NITROGEN 13 mg/dL 7-21 (BEAKER) (test rbtx=808) CREATININE (BEAKER) (test 0.72 mg/dL 0.57-1.25 skke=260) GLUCOSE RANDOM (BEAKER) 131 mg/dL 70-105 (test bgem=013) CALCIUM (BEAKER) (test 9.9 mg/dL 8.4-10.2 fjmr=983) EGFR (BEAKER) (test mL/min/1.73 sq m INSUFFICIENT CLINICAL DATA yydm=8646) TO CALCULATE ESTIMATED GFR. CBC W/PLT COUNT & AUTO [id number] 04:09:00 Test Item Value Reference Range Comments WHITE BLOOD CELL COUNT (BEAKER) (test vvvj=987) 18.5 K/ L 3.5-10.5 RED BLOOD CELL COUNT (BEAKER) (test pzye=728) 4.50 M/ L 3.93-5.22 HEMOGLOBIN (BEAKER) (test cjhd=573) 11.2 GM/DL 11.2-15.7 HEMATOCRIT (BEAKER) (test xopy=434) 35.7 % 34.1-44.9 MEAN CORPUSCULAR VOLUME (BEAKER) (test tgeg=744) 79.3 fL 79.4-94.8 MEAN CORPUSCULAR HEMOGLOBIN (BEAKER) (test 24.9 pg 25.6-32.2 pibz=951) MEAN CORPUSCULAR HEMOGLOBIN CONC (BEAKER) (test 31.4 GM/DL 32.2-35.5 zfyi=853) RED CELL DISTRIBUTION WIDTH (BEAKER) (test 14.0 % 11.7-14.4 rpxk=150) PLATELET COUNT (BEAKER) (test pomh=143) 590 K/CU MM 150-450 MEAN PLATELET VOLUME (BEAKER) (test gpbp=148) 9.2 fL 9.4-12.3 NUCLEATED RED BLOOD CELLS (BEAKER) (test 0 /100 WBC 0-0 uvyv=067) NEUTROPHILS RELATIVE PERCENT (BEAKER) (test 90 % igkl=444) LYMPHOCYTES RELATIVE PERCENT (BEAKER) (test 7 % tioy=814) MONOCYTES RELATIVE PERCENT (BEAKER) (test 2 % fjze=287) EOSINOPHILS RELATIVE PERCENT (BEAKER) (test 0 % hosq=960) BASOPHILS RELATIVE PERCENT (BEAKER) (test 0 % hmsm=394) NEUTROPHILS ABSOLUTE COUNT (BEAKER) (test 16.64 K/ L 1.56-6.13 ddty=870) LYMPHOCYTES ABSOLUTE COUNT (BEAKER) (test 1.26 K/ L 1.18-3.74 zmsg=478) MONOCYTES ABSOLUTE COUNT (BEAKER) (test 0.44 K/ L 0.24-0.36 ixvm=291) EOSINOPHILS ABSOLUTE COUNT (BEAKER) (test 0.01 K/ L 0.04-0.36 mdbd=615) BASOPHILS ABSOLUTE COUNT (BEAKER) (test 0.03 K/ L 0.01-0.08 vjiw=285) IMMATURE GRANULOCYTES-RELATIVE PERCENT (BEAKER) 1 % 0-1 (test wgnf=1679) POCT-GLUCOSE [id number] 00:17:00 Test Item Value Reference Range Comments POC-GLUCOSE METER (BEAKER) 122 mg/dL 70-110 TESTED AT [address] (test qsgg=5977) [place] [address] POCT-GLUCOSE [id number] 18:35:00 Test Item Value Reference Range Comments POC-GLUCOSE METER (BEAKER) 134 mg/dL 70-110 TESTED AT [address] (test iune=8930) [place] [address] POCT-GLUCOSE [id number] 12:10:00 Test Item Value Reference Range Comments POC-GLUCOSE METER (BEAKER) 146 mg/dL 70-110 TESTED AT [address] (test etlb=6792) [place] [address] [id number] 07:56:00 Test Item Value Reference Range Comments PROCALCITONIN (BEAKER) (test eirz=8363) < ng/mL <0.05 SEPSIS RISK (ng/mL)Low: 0.05-0.50Intermediate: 0.51-2.00High: & gt;=2.01LACTATE DEHYDROGENASE (LDH)2018-02-27 06:52:00 Test Item Value Reference Range Comments LACTATE DEHYDROGENASE (BEAKER) (test ogrx=379) 146 U/L 125-220 C-REACTIVE [id number] 06:52:00 Test Item Value Reference Range Comments C-REACTIVE PROTEIN (BEAKER) (test hglh=768) 8.22 mg/dL 0.00-0.50 LACTIC ACID, ARTERIAL, WHOLE [id number] 06:01:00 Test Item Value Reference Range Comments LACTATE BLOOD ARTERIAL (2) (BEAKER) (test 1.0 mmol/L 0.5-2.2 yutm=2024) BASIC METABOLIC [id number] 05:52:00 Test Item Value Reference Range Comments SODIUM (BEAKER) (test 137 meq/L 136-145 cift=626) POTASSIUM (BEAKER) (test 4.2 meq/L 3.5-5.1 Specimen slightly dlca=987) hemolyzed CHLORIDE (BEAKER) (test 105 meq/L 98-107 asjd=196) CO2 (BEAKER) (test 25 meq/L 22-29 ockc=820) BLOOD UREA NITROGEN 13 mg/dL 7-21 (BEAKER) (test dnqa=719) CREATININE (BEAKER) (test 0.74 mg/dL 0.57-1.25 Specimen slightly lebo=109) hemolyzed GLUCOSE RANDOM (BEAKER) 93 mg/dL 70-105 (test lktc=429) CALCIUM (BEAKER) (test 9.4 mg/dL 8.4-10.2 puxk=831) EGFR (BEAKER) (test mL/min/1.73 sq m INSUFFICIENT CLINICAL DATA ixkg=2969) TO CALCULATE ESTIMATED GFR. TROPONIN [id number] 05:48:00 Test Item Value Reference Range Comments TROPONIN I (BEAKER) (test ncix=059) < ng/mL 0.00-0.03 [id number] 05:43:00 Test Item Value Reference Range Comments MAGNESIUM (BEAKER) (test 2.1 mg/dL 1.6-2.6 Specimen slightly hemolyzed gfcu=334) [id number] 05:43:00 Test Item Value Reference Range Comments PHOSPHORUS (BEAKER) (test 4.1 mg/dL 2.3-4.7 Specimen slightly hemolyzed aktl=822) CBC W/PLT COUNT & AUTO [id number] 05:34:00 Test Item Value Reference Range Comments WHITE BLOOD CELL COUNT (BEAKER) (test zykn=650) 13.1 K/ L 3.5-10.5 RED BLOOD CELL COUNT (BEAKER) (test tveb=869) 4.42 M/ L 3.93-5.22 HEMOGLOBIN (BEAKER) (test tueo=018) 11.2 GM/DL 11.2-15.7 HEMATOCRIT (BEAKER) (test beoq=982) 35.7 % 34.1-44.9 MEAN CORPUSCULAR VOLUME (BEAKER) (test jqve=052) 80.8 fL 79.4-94.8 MEAN CORPUSCULAR HEMOGLOBIN (BEAKER) (test 25.3 pg 25.6-32.2 cbeq=305) MEAN CORPUSCULAR HEMOGLOBIN CONC (BEAKER) (test 31.4 GM/DL 32.2-35.5 xidf=105) RED CELL DISTRIBUTION WIDTH (BEAKER) (test 14.2 % 11.7-14.4 jgww=216) PLATELET COUNT (BEAKER) (test tnes=145) 490 K/CU MM 150-450 MEAN PLATELET VOLUME (BEAKER) (test bmnh=182) 9.0 fL 9.4-12.3 NUCLEATED RED BLOOD CELLS (BEAKER) (test 0 /100 WBC 0-0 roso=189) NEUTROPHILS RELATIVE PERCENT (BEAKER) (test 63 % uwjz=087) LYMPHOCYTES RELATIVE PERCENT (BEAKER) (test 25 % mgpi=646) MONOCYTES RELATIVE PERCENT (BEAKER) (test 8 % vtso=343) EOSINOPHILS RELATIVE PERCENT (BEAKER) (test 4 % vwcr=620) BASOPHILS RELATIVE PERCENT (BEAKER) (test 1 % btmn=727) NEUTROPHILS ABSOLUTE COUNT (BEAKER) (test 8.20 K/ L 1.56-6.13 oryn=407) LYMPHOCYTES ABSOLUTE COUNT (BEAKER) (test 3.22 K/ L 1.18-3.74 hqvb=819) MONOCYTES ABSOLUTE COUNT (BEAKER) (test 0.99 K/ L 0.24-0.36 ahvg=419) EOSINOPHILS ABSOLUTE COUNT (BEAKER) (test 0.57 K/ L 0.04-0.36 ctpf=571) BASOPHILS ABSOLUTE COUNT (BEAKER) (test 0.08 K/ L 0.01-0.08 rzrm=156) IMMATURE GRANULOCYTES-RELATIVE PERCENT (BEAKER) 1 % 0-1 (test oyll=9555) POCT-GLUCOSE [id number] 05:32:00 Test Item Value Reference Range Comments POC-GLUCOSE METER (BEAKER) 118 mg/dL 70-[address] [facility] [address] [facility] (test gkcp=0871) [facility] [address] [id number] 05:20:00 Test Item Value Reference Range Comments PROTIME (BEAKER) (test dysv=290) 13.7 seconds 11.7-14.7 INR (BEAKER) (test zwmh=947) 1.1 <=5.9 PARTIAL THROMBOPLASTIN TIME (BEAKER) (test 26.4 seconds 22.5-36.0 opoe=676) RECOMMENDED COUMADIN/WARFARIN INR THERAPY RANGESSTANDARD DOSE: 2.0 - 3.0 Includes: PROPHYLAXIS forvenous thrombosis, systemic embolization; TREATMENT for venous thrombosis and/or pulmonary embolus.HIGH RISK: Target INR is 2.5-3.5 for patients with mechanical heart valves.PROTHROMBIN [id number] 05:19: 00 Test Item Value Reference Range Comments PROTIME (BEAKER) (test iwey=069) 13.7 seconds 11.7-14.7 INR (BEAKER) (test zdgn=662) 1.1 <=5.9 RECOMMENDED COUMADIN/WARFARIN INR THERAPY RANGESSTANDARD DOSE: 2.0 - 3.0 Includes: PROPHYLAXIS forvenous thrombosis, systemic embolization; TREATMENT for venous thrombosis and/or pulmonary embolus.HIGH RISK: Target INR is 2.5-3.5 for patients with mechanical heart valves.
--- NOTE | 2018-08-21 19:16 | RAD REPORT ---
EXAM DESCRIPTION: CT - Head C Spine Mpr Wo Con - 08/21/2018 6:33 pm CLINICAL HISTORY: Head and neck injury status post fall. Head and neck pain COMPARISON: June [address] TECHNIQUE: Computed axial tomography of the head and cervical spine was obtained. Sagittal and coronal reconstruction was performed. All CT scans are performed using dose optimization technique as appropriate and may include automated exposure control or mA/KV adjustment according to patient size. FINDINGS: Suboccipital craniectomy. A 4 x 2 centimeter low-density fluid collection within the soft tissue posterior to the occipital bone without significant change. An intracranial bleed is not seen. The ventricles are normal in caliber. An extra-axial fluid collect ion is not noted.Fluid within the visualized sinuses and mastoids is not seen A cervical fracture is not visualized. No dislocation is noted. IMPRESSION: No acute intracranial abnormality is seen. A cervical fracture is not visualized. If the patient continues to have symptoms to suggest intracra nial /spinal cord pathology then MRI would be recommended
--- NOTE | 2018-08-21 19:36 | EDPHYS ---
Physician Documentation [facility] Name: Albania Alfaro Age: 58 yrs Sex: Female : 1960 Arrival Date: 08/21/2018 Time: 16:23 Bed 13 Private MD: Codey Monahan E ED Physician Josef Alamo HPI: 08/21 17:35 This 58 yrs old Female presents to ER via Ambulatory with complaints of Fall jmm Injury. 17:35 Details of fall: The patient fell from an upright position. Onset: The symptoms/episode jmm began/occurred acutely. Associated injuries: The patient sustained injury to the head. This is a 58 year old female with a history of metastatic lung cancer that presents to the ED with complaints of headache, right upper arm pain, and right knee pain after a fall which occurred earlier today. Patient states she was walking quickly and lost balance, falling face first. Patient states having difficulty with balance since a brain tumor removal. Patient denies LOC, family denies behavior change. . 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 - Social history:: Smoking status: . - Ebola Screening: : Patient negative for fever greater than or equal to 101.5 degrees Fahrenheit, and additional compatible Ebola Virus Disease symptoms. ROS: 17:35 Constitutional: Negative for fever, chills, and weight loss, Cardiovascular: Negative jmm for chest pain, palpitations, and edema, Respiratory: Negative for shortness of breath, cough, wheezing, and pleuritic chest pain. 17:35 MS/extremity: Positive for pain. 17:35 Neuro: Positive for headache. 17:35 All other systems are negative. Exam: 17:35 ENT: Moist Mucus Membranes jmm 17:35 Constitutional: The patient appears in no acute distress, alert, awake. 17:35 Head/face: Exam is negative for sullivan signs, raccoon eyes. 17:35 Neck: C-spine: appears grossly normal. 17:35 Chest/axilla: Inspection: normal. 17:35 Cardiovascular: Rate: normal, Rhythm: regular. 17:35 Respiratory: the patient does not display signs of respiratory distress, Respirations: normal, Breath sounds: are clear throughout. 17:35 Musculoskeletal/extremity: from appreciated to the right shoulder, no bony tenderness appreciated, full radial pulse, compartments are soft, NVI. 17:35 Musculoskeletal/extremity: right distal thigh tenderness, no bony tenderness appreciated, FROM of the right knee, compartments are soft, NVI. 17:35 Skin: Appearance: Color: normal in color. 17:35 Neuro: Orientation: is normal, Mentation: is normal, Memory: is normal. 17:35 Psych: Behavior/mood is pleasant, cooperative. Vital Signs: 16:26 BP 116 / 72; Pulse 77; Resp 17; Temp 97.3(O); Pulse Ox 97% on R/A; Weight 78.47 kg (R); tw2 Height 5 ft. 4 in. (162.56 cm); Pain 4/10; 17:30 BP 136 / 77; Pulse 72; Resp 11; Temp 98.3(O); Pulse Ox 99% on R/A; Pain 3/10; ls4 19:00 BP 115 / 81; Pulse 68; Resp 16; Pulse Ox 99% on R/A; Pain 3/10; ls4 16:26 Body Mass Index 29.70 (78.47 kg, 162.56 cm) tw2 MDM: 17:35 Patient medically screened. [facility] 19:33 Data reviewed: vital signs, nurses notes. Counseling: I had a detailed discussion with [facility] the patient and/or guardian regarding: the historical points, exam findings, and any diagnostic results supporting the discharge/admit diagnosis, radiology results, the need for outpatient follow up, to return to the emergency department if symptoms worsen or persist or if there are any questions or concerns that arise at home. 19:57 ED course: Patient advised to follow up with PCP and otherwise given head injury return [facility] precautions. Patient understood and agrees with the plan of care. . 08/21 17:46 Order name: CT Head C Spine; Complete Time: 19:21 [facility] Administered Medications: 20:01 Not Given (Patient Refused): Tylenol 650 mg PO once ls4 Disposition: 08/22 09:05 Co-signature as Attending Physician, Josef Alamo MD I agree with the assessment and kdr plan of care. Disposition: 08/21/18 19:36 Discharged to Home. Impression: Superficial injury of head. - Condition is Stable. - Discharge Instructions: Head Injury, Adult. - Medication Reconciliation Form, Thank You Letter, Antibiotic Education, Prescription Opioid Use form. - Follow up: Codey Monahan MD; When: 2 - 3 days; Reason: Recheck today's complaints, Continuance of care, Re-evaluation by your physician. Signatures: Dispatcher [employer] EDMS Josef Alamo MD MD kdr Mickail, Joel, PA PA Sindhu Nichols, RN RN tw2 Rita Barger RN RN ls4 Corrections: (The following items were deleted from the chart) 08/21 20:00 19:36 08/21/2018 19:36 Discharged to Home. Impression: Superficial injury of head. ls4 Condition is Stable. Forms are Medication Reconciliation Form, Thank You Letter, Antibiotic Education, Prescription Opioid Use. Follow up: Codey Monahan; When: 2 - 3 days; Reason: Recheck today's complaints, Continuance of care, Re-evaluation by your physician. guillermo
--- NOTE | 2018-08-21 19:36 | ER ---
Nurse's Notes [facility] Name: Albania Alfaro Age: 58 yrs Sex: Female : 1960 Arrival Date: 08/21/2018 Time: 16:23 Bed 13 Private MD: Codey Monahan E Diagnosis: Superficial injury of head Presentation: 08/21 16:24 Presenting complaint: Patient states: i was going down [place] and sometimes when i get tw2 going i cant slow down and i fell flat on my chest and my forehead bounced off the floor and i have had brain surgery 2017 and that is what affects my gait and right upper arm pain and my right knee. Transition of care: patient was not received from another setting of care. Onset of symptoms was August 21, 2018. Risk Assessment: Do you want to hurt yourself or someone else? Patient reports no desire to harm self or others. Initial Sepsis Screen: Does the patient meet any 2 criteria? No. Patient's initial sepsis screen is negative. Does the patient have a suspected source of infection? No. Patient's initial sepsis screen is negative. Care prior to arrival: None. 16:24 Method Of Arrival: Ambulatory tw2 16:27 Acuity: AILYN 3 tw2 Triage Assessment: 16:26 General: Appears in no apparent distress. Behavior is calm, cooperative, appropriate tw2 for age. Pain: Complains of pain in forehead. Musculoskeletal: Reports pain in right arm. 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 - Social history:: Smoking status: . - Ebola Screening: : Patient negative for fever greater than or equal to 101.5 degrees Fahrenheit, and additional compatible Ebola Virus Disease symptoms. Screenin:37 Abuse screen: Denies threats or abuse. Denies injuries from another. Nutritional ls4 screening: No deficits noted. Tuberculosis screening: No symptoms or risk factors identified. Fall Risk Fall in past 12 months (25 points). Secondary diagnosis (15 points) No IV (0 pts). Ambulatory Aid- None/Bed Rest/Nurse Assist (0 pts). Gait- Normal/Bed Rest/Wheelchair (0 pts) Mental Status- Oriented to own ability (0 pts). Total River Fall Scale indicates Low Risk Score (25-44 pts). Fall prevention measures have been instituted. Side Rails Up X 2 Placed close to Nursing Station Frequent Obs/Assesments occuring Family Present and informed to notify staff if they need to leave bedside As available Patient and Family Educated on Fall Prevention Program and strategies. Assessment: 17:21 General: Appears in no apparent distress. comfortable, Behavior is calm, cooperative. 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 Gait is steady, Speech is normal, Facial symmetry appears normal, Pupils are PERRLA, Intact Babinski Reports coordination problems . Cardiovascular: Capillary refill < 3 seconds Patient's skin is warm and dry. Respiratory: Airway is patent Respiratory effort is even, unlabored, Respiratory pattern is regular. 18:20 Reassessment: Patient appears in no apparent distress at this time. Patient and/or ls4 family updated on plan of care and expected duration. Pain level reassessed. Patient is alert, oriented x 3, equal unlabored respirations, skin warm/dry/pink. 19:17 Reassessment: Patient appears in no apparent distress at this time. Patient and/or ls4 family updated on plan of care and expected duration. Pain level reassessed. Patient is alert, oriented x 3, equal unlabored respirations, skin warm/dry/pink. Vital Signs: 16:26 BP 116 / 72; Pulse 77; Resp 17; Temp 97.3(O); Pulse Ox 97% on R/A; Weight 78.47 kg (R); tw2 Height 5 ft. 4 in. (162.56 cm); Pain 4/10; 17:30 BP 136 / 77; Pulse 72; Resp 11; Temp 98.3(O); Pulse Ox 99% on R/A; Pain 3/10; ls4 19:00 BP 115 / 81; Pulse 68; Resp 16; Pulse Ox 99% on R/A; Pain 3/10; ls4 16:26 Body Mass Index 29.70 (78.47 kg, 162.56 cm) tw2 ED Course: 16:23 Patient arrived in ED. mr 16:23 Codey Monahan MD is Private Physician. mr 16:25 Triage completed. tw2 16:25 Arm band placed on. tw2 17:21 Han Evangelista, RN is Primary Nurse. bp 17:25 Patient has correct armband on for positive identification. Bed in low position. Call ls4 light in reach. Side rails up X 1. youth nutritional monitor on. Pulse ox on. NIBP on. Warm blanket given. Verbal reassurance given. 17:26 Alexx Malik PA is PHCP. [facility] 17:26 Josef Alamo MD is Attending Physician. [facility] 18:[address] [facility] 18:33 CT completed. Patient tolerated procedure well. Patient moved back from CT. al 18:35 CT Head C Spine In Process Unspecified. EDMS 19:22 No provider procedures requiring assistance completed. Patient did not have IV access ls4 during this emergency room visit. 19:33 Codey Monahan MD is Referral Physician. [facility] 19:55 Rita Barger, RN is Primary Nurse. ls4 Administered Medications: 20:01 Not Given (Patient Refused): Tylenol 650 mg PO once ls4 Outcome: 19:36 Discharge ordered by MD. [facility] 19:53 Discharged to home ambulatory, with family. ls4 19:53 Condition: stable 19:53 Discharge instructions given to patient, family, Instructed on discharge instructions, follow up and referral plans. medication usage, safety practices, Demonstrated understanding of instructions, follow-up care, medications. 20:00 Patient left the ED. ls4 Signatures: Dispatcher [employer] EDAZ Alexx Malik PA PA [facility] SchusterLucia Sindhu Nava, RN RN tw2 Sage Hoffmann Victoria 2 Han Evangelista, RN RN bp Rita Barger, KRISTOPHER RN ls4 Corrections: (The following items were deleted from the chart) 16:27 16:24 Acuity: AILYN 4 tw2 tw2
[2018-08-21 21:09] VITALS: TEMP 98.3; O2SAT 99
[2018-08-21 21:10] VITALS: BP 115/81
== END 2018-08-21 20:00 | disposition home or self-care (01) ==
LOC: ER 16:20
DX: S00.90XA Unspecified superficial injury of unspecified part of head, initial encounter (principal); W19.XXXA Unspecified fall, initial encounter; Y93.01 Activity, walking, marching and hiking; Y92.9 Unspecified place or not applicable; Z88.1 Allergy status to other antibiotic agents; Z85.118 Personal history of other malignant neoplasm of bronchus and lung
CPT/HCPCS: 70450; 72125; 99284

== ENCOUNTER 2019-04-06 12:39 | Emergency (ER) | payer MEDICAID ==
--- OUTSIDE RECORDS SUMMARY | 2019-04-06 12:42 | XMS REPORT ---
:1960 [facility] Address [address] [place] [address] [address] [place] [address] Care Team Providers Name Role Phone JACOBY MÁRQUEZ Unavailable Unavailable Problems This patient has no known problems. Allergies, Adverse Reactions, Alerts This patient has no known allergies or adverse reactions. Medications This patient has no known medications. Results Test Description Test Time Test Comments Text Results Atomic Results Result Comments TISSUE EXAM 2018-05-24 13:16:00 Surgical Pathology Report Case: [id number] Authorizing Provider: Robert Hightower MD Collected: 03/06/2018 1828 Ordering Location: [facility] Received: 03/07/2018 0900 SERVICES Pathologist: Blu Bowers MD Specimen: Tumor The following results were reported by [employer]. Please see attached reports.PD-L1 22C3 FDA analysis confirms HIGH EXPRESSIONBRAF gene rearrangement is NOT DETECTEDROS1 gene rearrangement is NOT DETECTEDALK gene rearrangement is NOT DETECTEDEGFR mutations in exons 18, 19, 20 T790M and other mutations, 21Addendum electronically signed by Blu Bowers MD on 05/24/2018 at 1:16 PMBRAIN, CEREBELLUM, CRANIOTOMY:METASTATIC ADENOCARCINOMA WITH FOCAL SQUAMOUS DIFFERENTIATION (SEE COMMENT) Signing Pathologist Direct Phone Line: [phone] signed by Blu Bowers MD on 03/19/2018 [...] tumor cells. Tumor is negative for p63. 30210; 40166; 99628 x 6Cancer of cerebellumTumor of craniumThe specimen [...] stains. Immunohistochemistry technical testing was performed at [facility], Pathology Laboratory where it was developed [...] developed and its performance characteristics determined by [facility], Pathology Laboratory. It has not been [...] (BEAKER) (test 174 mg/dL 70-110 TESTED AT [address] wgav=1526) [facility] [address] POCT-GLUCOSE [id number] 12:07:00 Test Item Value Reference Range Comments POC-GLUCOSE METER (BEAKER) 114 mg/dL 70-110 TESTED AT [address] (test uxxt=2279) [place] [id number] POCT-GLUCOSE [id number] 07:14:00 Test Item Value Reference Range Comments POC-GLUCOSE METER (BEAKER) 104 mg/dL 70-110 TESTED AT [address] (test mbbl=1320) [place] [address] BASIC METABOLIC [id number] 05:46:00 Test Item Value Reference Range Comments SODIUM (BEAKER) (test 134 meq/L 136-145 qquo=582) POTASSIUM (BEAKER) (test 4.4 meq/L 3.5-5.1 smcd=261) CHLORIDE (BEAKER) (test 103 meq/L 98-107 dyxm=567) CO2 (BEAKER) (test 23 meq/L 22-29 dwgx=878) BLOOD UREA NITROGEN 19 mg/dL 7-21 (BEAKER) (test olsu=523) CREATININE (BEAKER) (test 0.60 mg/dL 0.57-1.25 mrjp=753) GLUCOSE RANDOM (BEAKER) 103 mg/dL 70-105 (test jqvy=059) CALCIUM (BEAKER) (test 9.7 mg/dL 8.4-10.2 pvya=337) EGFR (BEAKER) (test mL/min/1.73 sq m INSUFFICIENT CLINICAL DATA pbwn=5751) TO CALCULATE ESTIMATED GFR. CBC W/PLT COUNT & AUTO [id number] 05:20:00 Test Item Value Reference Range Comments WHITE BLOOD CELL COUNT (BEAKER) (test gapr=278) 20.9 K/ L 3.5-10.5 RED BLOOD CELL COUNT (BEAKER) (test kptr=592) 5.18 M/ L 3.93-5.22 HEMOGLOBIN (BEAKER) (test bgez=316) 12.9 GM/DL 11.2-15.7 HEMATOCRIT (BEAKER) (test xymw=507) 41.8 % 34.1-44.9 MEAN CORPUSCULAR VOLUME (BEAKER) (test lxxx=151) 80.7 fL 79.4-94.8 MEAN CORPUSCULAR HEMOGLOBIN (BEAKER) (test 24.9 pg 25.6-32.2 tmyr=106) MEAN CORPUSCULAR HEMOGLOBIN CONC (BEAKER) (test 30.9 GM/DL 32.2-35.5 ohqd=586) RED CELL DISTRIBUTION WIDTH (BEAKER) (test 15.7 % 11.7-14.4 fdcf=856) PLATELET COUNT (BEAKER) (test igvd=963) 485 K/CU MM 150-450 MEAN PLATELET VOLUME (BEAKER) (test nahp=929) 9.1 fL 9.4-12.3 NUCLEATED RED BLOOD CELLS (BEAKER) (test 0 /100 WBC 0-0 jfeh=085) NEUTROPHILS RELATIVE PERCENT (BEAKER) (test 82 % fijh=056) LYMPHOCYTES RELATIVE PERCENT (BEAKER) (test 10 % ucxi=928) MONOCYTES RELATIVE PERCENT (BEAKER) (test 6 % ogri=332) EOSINOPHILS RELATIVE PERCENT (BEAKER) (test 1 % jire=513) BASOPHILS RELATIVE PERCENT (BEAKER) (test 0 % xokk=852) NEUTROPHILS ABSOLUTE COUNT (BEAKER) (test 17.13 K/ L 1.56-6.13 zyco=127) LYMPHOCYTES ABSOLUTE COUNT (BEAKER) (test 2.17 K/ L 1.18-3.74 jxfx=677) MONOCYTES ABSOLUTE COUNT (BEAKER) (test 1.19 K/ L 0.24-0.36 laxu=735) EOSINOPHILS ABSOLUTE COUNT (BEAKER) (test 0.17 K/ L 0.04-0.36 uyye=930) BASOPHILS ABSOLUTE COUNT (BEAKER) (test 0.03 K/ L 0.01-0.08 usij=869) IMMATURE GRANULOCYTES-RELATIVE PERCENT (BEAKER) 1 % 0-1 (test jolx=2316) POCT-GLUCOSE [id number] 21:30:00 Test Item Value Reference Range Comments POC-GLUCOSE METER (BEAKER) 111 mg/dL 70-110 TESTED AT [address] (test hdre=6108) [place] [address] POCT-GLUCOSE [id number] 18:19:00 Test Item Value Reference Range Comments POC-GLUCOSE METER (BEAKER) 175 mg/dL 70-110 TESTED AT [address] (test ikol=7200) [place] [address] POCT-GLUCOSE [id number] 08:28:00 Test Item Value Reference Range Comments POC-GLUCOSE METER (BEAKER) 143 mg/dL 70-110 TESTED AT [address] (test ymqn=3636) [place] [address] BASIC METABOLIC [id number] 06:32:00 Test Item Value Reference Range Comments SODIUM (BEAKER) (test 134 meq/L 136-145 jbma=248) POTASSIUM (BEAKER) (test 4.8 meq/L 3.5-5.1 wrcv=128) CHLORIDE (BEAKER) (test 101 meq/L 98-107 ylfw=686) CO2 (BEAKER) (test 28 meq/L 22-29 uiko=909) BLOOD UREA NITROGEN 23 mg/dL 7-21 (BEAKER) (test gxos=678) CREATININE (BEAKER) (test 0.66 mg/dL 0.57-1.25 jaim=848) GLUCOSE RANDOM (BEAKER) 107 mg/dL 70-105 (test pmby=408) CALCIUM (BEAKER) (test 9.3 mg/dL 8.4-10.2 xhnh=942) EGFR (BEAKER) (test mL/min/1.73 sq m INSUFFICIENT CLINICAL DATA djbe=3143) TO CALCULATE ESTIMATED GFR. CBC W/PLT COUNT & AUTO [id number] 06:29:00 Test Item Value Reference Range Comments WHITE BLOOD CELL COUNT (BEAKER) (test gtcj=772) 20.6 K/ L 3.5-10.5 RED BLOOD CELL COUNT (BEAKER) (test tmwg=640) 4.79 M/ L 3.93-5.22 HEMOGLOBIN (BEAKER) (test irtj=844) 12.1 GM/DL 11.2-15.7 HEMATOCRIT (BEAKER) (test clyb=516) 38.4 % 34.1-44.9 MEAN CORPUSCULAR VOLUME (BEAKER) (test jtaz=018) 80.2 fL 79.4-94.8 MEAN CORPUSCULAR HEMOGLOBIN (BEAKER) (test 25.3 pg 25.6-32.2 huno=588) MEAN CORPUSCULAR HEMOGLOBIN CONC (BEAKER) (test 31.5 GM/DL 32.2-35.5 dvpf=882) RED CELL DISTRIBUTION WIDTH (BEAKER) (test 15.7 % 11.7-14.4 hclk=366) PLATELET COUNT (BEAKER) (test nbxv=612) 415 K/CU MM 150-450 MEAN PLATELET VOLUME (BEAKER) (test ijqs=998) 9.0 fL 9.4-12.3 NUCLEATED RED BLOOD CELLS (BEAKER) (test 0 /100 WBC 0-0 mjve=837) NEUTROPHILS RELATIVE PERCENT (BEAKER) (test 79 % jjuu=419) LYMPHOCYTES RELATIVE PERCENT (BEAKER) (test 11 % gwks=206) MONOCYTES RELATIVE PERCENT (BEAKER) (test 7 % xida=906) EOSINOPHILS RELATIVE PERCENT (BEAKER) (test 2 % dnta=226) BASOPHILS RELATIVE PERCENT (BEAKER) (test 0 % kydp=194) NEUTROPHILS ABSOLUTE COUNT (BEAKER) (test 16.22 K/ L 1.56-6.13 uass=602) LYMPHOCYTES ABSOLUTE COUNT (BEAKER) (test 2.31 K/ L 1.18-3.74 dabt=094) MONOCYTES ABSOLUTE COUNT (BEAKER) (test 1.46 K/ L 0.24-0.36 wwrj=669) EOSINOPHILS ABSOLUTE COUNT (BEAKER) (test 0.37 K/ L 0.04-0.36 fvzl=674) BASOPHILS ABSOLUTE COUNT (BEAKER) (test 0.03 K/ L 0.01-0.08 sxtm=299) IMMATURE GRANULOCYTES-RELATIVE PERCENT (BEAKER) 1 % 0-1 (test nnhl=3080) POCT-GLUCOSE [id number] 21:28:00 Test Item Value Reference Range Comments POC-GLUCOSE METER (BEAKER) 170 mg/dL 70-110 TESTED AT [address] (test gdcw=3453) [place] [address] POCT-GLUCOSE [id number] 18:02:00 Test Item Value Reference Range Comments POC-GLUCOSE METER (BEAKER) 180 mg/dL 70-110 TESTED AT [address] (test ouux=2957) [place] [id number] POCT-GLUCOSE [id number] 13:34:00 Test Item Value Reference Range Comments POC-GLUCOSE METER (BEAKER) 235 mg/dL 70-110 TESTED AT [address] (test hrpw=3468) [facility] [address] MR, BRAIN, [id number] 12:29:00FINAL REPORT MRI Brain with and without [...] MDReport Verified Date/Time: 2017 12:29:16 Reading Location: [address] Neuro Reading Room CBC W/PLT COUNT & AUTO [id number] 07:59:00 Test Item Value Reference Range Comments WHITE BLOOD CELL COUNT (BEAKER) (test brxo=295) 25.4 K/ L 3.5-10.5 RED BLOOD CELL COUNT (BEAKER) (test rvoe=414) 4.74 M/ L 3.93-5.22 HEMOGLOBIN (BEAKER) (test rrdg=668) 12.2 GM/DL 11.2-15.7 HEMATOCRIT (BEAKER) (test iryv=728) 37.4 % 34.1-44.9 MEAN CORPUSCULAR VOLUME (BEAKER) (test ewdz=482) 78.9 fL 79.4-94.8 MEAN CORPUSCULAR HEMOGLOBIN (BEAKER) (test 25.7 pg 25.6-32.2 wuoj=751) MEAN CORPUSCULAR HEMOGLOBIN CONC (BEAKER) (test 32.6 GM/DL 32.2-35.5 urky=509) RED CELL DISTRIBUTION WIDTH (BEAKER) (test 15.6 % 11.7-14.4 pwqf=204) PLATELET COUNT (BEAKER) (test dqej=596) 471 K/CU MM 150-450 MEAN PLATELET VOLUME (BEAKER) (test nzzb=851) 9.1 fL 9.4-12.3 NUCLEATED RED BLOOD CELLS (BEAKER) (test 0 /100 WBC 0-0 rbri=050) (CELLAVISION MANUAL DIFF)2018-03-08 07:59:00 Test Item Value Reference Range Comments NEUTROPHILS - REL (CELLAVISION)(BEAKER) (test 91 % eqvc=2951) LYMPHOCYTES - REL (CELLAVISION)(BEAKER) (test 6 % rvzm=0598) MONOCYTES - REL (CELLAVISION)(BEAKER) (test 1 % uuei=3486) BANDS - REL (CELLAVISION)(BEAKER) (test 2 % 0-10 fpso=6522) NEUTROPHILS - ABS (CELLAVISION)(BEAKER) (test 23.11 K/ul 1.56-6.13 ikum=9817) LYMPHOCYTES - ABS (CELLAVISION)(BEAKER) (test 1.52 K/ul 1.18-3.74 tppz=1771) MONOCYTES - ABS (CELLAVISION)(BEAKER) (test 0.25 K/uL 0.24-0.36 cdhi=4369) BANDS - ABS (CELLAVISION)(BEAKER) (test 0.51 K/uL 0.00-0.80 yfqw=2541) TOTAL COUNTED (BEAKER) (test fpwa=1227) 100 WBC MORPHOLOGY (BEAKER) (test llqu=593) Normal PLT MORPHOLOGY (BEAKER) (test cmtp=626) Normal POLYCHROMATOPHILLIC RBCS(BEAKER) (test zrft=069) 3+ many ANISOCYTOSIS (BEAKER) (test uuwh=034) 2+ moderate MICROCYTES (BEAKER) (test zvjb=202) 1+ few ARTIFACT (CELLAVISION)(BEAKER) (test bjgz=5572) Present PLATELET CONCENTRATION (CELLAVISION)(BEAKER) Increased (test lqjo=4497) Received comment: User comments: Slide comments:BASIC METABOLIC [id number] 04:18:00 Test Item Value Reference Range Comments SODIUM (BEAKER) (test 133 meq/L 136-145 syyy=574) POTASSIUM (BEAKER) (test 4.3 meq/L 3.5-5.1 esvm=958) CHLORIDE (BEAKER) (test 101 meq/L 98-107 zluf=256) CO2 (BEAKER) (test 25 meq/L 22-29 xxcv=282) BLOOD UREA NITROGEN 17 mg/dL 7-21 (BEAKER) (test gzwy=748) CREATININE (BEAKER) (test 0.65 mg/dL 0.57-1.25 pucj=959) GLUCOSE RANDOM (BEAKER) 121 mg/dL 70-105 (test phdz=711) CALCIUM (BEAKER) (test 9.2 mg/dL 8.4-10.2 pcab=755) EGFR (BEAKER) (test mL/min/1.73 sq m INSUFFICIENT CLINICAL DATA fgrq=6355) TO CALCULATE ESTIMATED GFR. POCT-GLUCOSE [id number] 23:21:00 Test Item Value Reference Range Comments POC-GLUCOSE METER (BEAKER) 122 mg/dL 70-110 TESTED AT [address] (test pfvq=7835) [place] [address] POCT-GLUCOSE [id number] 22:02:00 Test Item Value Reference Range Comments POC-GLUCOSE METER (BEAKER) 122 mg/dL 70-110 TESTED AT [address] (test nkzn=8187) [place] [address] POCT-GLUCOSE [id number] 18:27:00 Test Item Value Reference Range Comments POC-GLUCOSE METER (BEAKER) 120 mg/dL 70-110 TESTED AT [address] (test xtlv=7668) [place] [id number] POCT-GLUCOSE [id number] 12:26:00 Test Item Value Reference Range Comments POC-GLUCOSE METER (BEAKER) 130 mg/dL 70-110 TESTED AT [address] (test rijk=1624) [place] [address] POCT-GLUCOSE [id number] 08:44:00 Test Item Value Reference Range Comments POC-GLUCOSE METER (BEAKER) 141 mg/dL 70-110 TESTED AT [address] (test gykg=0044) [place] [address] CBC W/PLT COUNT & AUTO [id number] 07:37:00 Test Item Value Reference Range Comments WHITE BLOOD CELL COUNT (BEAKER) (test qlej=444) 27.9 K/ L 3.5-10.5 RED BLOOD CELL COUNT (BEAKER) (test vzis=021) 4.44 M/ L 3.93-5.22 HEMOGLOBIN (BEAKER) (test xkyl=996) 11.3 GM/DL 11.2-15.7 HEMATOCRIT (BEAKER) (test ukrf=248) 35.2 % 34.1-44.9 MEAN CORPUSCULAR VOLUME (BEAKER) (test eoql=164) 79.3 fL 79.4-94.8 MEAN CORPUSCULAR HEMOGLOBIN (BEAKER) (test 25.5 pg 25.6-32.2 wwpa=707) MEAN CORPUSCULAR HEMOGLOBIN CONC (BEAKER) (test 32.1 GM/DL 32.2-35.5 aexj=629) RED CELL DISTRIBUTION WIDTH (BEAKER) (test 15.2 % 11.7-14.4 rzpg=245) PLATELET COUNT (BEAKER) (test ctqc=539) 491 K/CU MM 150-450 MEAN PLATELET VOLUME (BEAKER) (test qnsl=789) 9.0 fL 9.4-12.3 NUCLEATED RED BLOOD CELLS (BEAKER) (test 0 /100 WBC 0-0 ekhs=714) (CELLAVISION MANUAL DIFF)2018-03-07 07:37:00 Test Item Value Reference Range Comments NEUTROPHILS - REL (CELLAVISION)(BEAKER) (test 91 % rrcn=7381) LYMPHOCYTES - REL (CELLAVISION)(BEAKER) (test 3 % sogw=1780) MONOCYTES - REL (CELLAVISION)(BEAKER) (test 5 % iccv=6757) ATYPICAL LYMPHOCYTES - REL (CELLAVISION)(BEAKER) 1 % 0-0 (test ywuz=5631) NEUTROPHILS - ABS (CELLAVISION)(BEAKER) (test 25.39 K/ul 1.56-6.13 vnce=1828) LYMPHOCYTES - ABS (CELLAVISION)(BEAKER) (test 0.84 K/ul 1.18-3.74 mttx=1732) MONOCYTES - ABS (CELLAVISION)(BEAKER) (test 1.40 K/uL 0.24-0.36 aduy=5704) ATYPICAL LYMPHOCYTES - ABS (CELLAVISION)(BEAKER) 0.28 K/uL 0.00-0.00 (test maoh=3781) TOTAL COUNTED (BEAKER) (test qwsi=2836) 100 WBC MORPHOLOGY (BEAKER) (test ejyz=739) Normal LARGE PLT(BEAKER) (test mlsw=9246) Present POLYCHROMATOPHILLIC RBCS(BEAKER) (test lybs=004) 1+ few ARTIFACT (CELLAVISION)(BEAKER) (test rjlw=8893) Present PLATELET CONCENTRATION (CELLAVISION)(BEAKER) Increased (test oqbt=4359) Received comment: User comments: Slide comments:BASIC METABOLIC [id number] 04:29:00 Test Item Value Reference Range Comments SODIUM (BEAKER) (test 134 meq/L 136-145 gnur=057) POTASSIUM (BEAKER) (test 4.3 meq/L 3.5-5.1 majg=139) CHLORIDE (BEAKER) (test 104 meq/L 98-107 ckbj=939) CO2 (BEAKER) (test 23 meq/L 22-29 rujb=158) BLOOD UREA NITROGEN 18 mg/dL 7-21 (BEAKER) (test buoc=631) CREATININE (BEAKER) (test 0.63 mg/dL 0.57-1.25 jkrs=063) GLUCOSE RANDOM (BEAKER) 145 mg/dL 70-105 (test kzif=886) CALCIUM (BEAKER) (test 8.8 mg/dL 8.4-10.2 dqsu=008) EGFR (BEAKER) (test mL/min/1.73 sq m INSUFFICIENT CLINICAL DATA gyyk=0163) TO CALCULATE ESTIMATED GFR. [id number] 04:28:00 Test Item Value Reference Range Comments PHOSPHORUS (BEAKER) (test tsje=244) 3.4 mg/dL 2.3-4.7 [id number] 04:28:00 Test Item Value Reference Range Comments MAGNESIUM (BEAKER) (test jpas=845) 1.9 mg/dL 1.6-2.6 POCT-GLUCOSE [id number] 22:29:00 Test Item Value Reference Range Comments POC-GLUCOSE METER (BEAKER) 147 mg/dL 70-[address] [facility] [address] [facility] (test nnym=8961) [facility] [address] POCT-GLUCOSE [id number] 12:29:00 Test Item Value Reference Range Comments POC-GLUCOSE METER (BEAKER) 87 mg/dL 70-[address] [facility] [address] [facility] (test fdkz=6939) [facility] [address] POCT-GLUCOSE [id number] 08:21:00 Test Item Value Reference Range Comments POC-GLUCOSE METER (BEAKER) 122 mg/dL 70-110 TESTED AT [address] (test smkf=5998) [place] [address] [id number] 05:32:00 Test Item Value Reference Range Comments PROTIME (BEAKER) (test lsex=991) 13.1 seconds 11.7-14.7 INR (BEAKER) (test kgdg=739) 1.0 <=5.9 PARTIAL THROMBOPLASTIN TIME (BEAKER) (test 24.2 seconds 22.5-36.0 mqsa=936) RECOMMENDED COUMADIN/WARFARIN INR THERAPY RANGESSTANDARD DOSE: 2.0 - 3.0 Includes: PROPHYLAXIS forvenous thrombosis, systemic embolization; TREATMENT for venous thrombosis and/or pulmonary embolus.HIGH RISK: Target INR is 2.5-3.5 for patients with mechanical heart valves.POCT-GLUCOSE [id number] 05:17:00 Test Item Value Reference Range Comments POC-GLUCOSE METER (BEAKER) 127 mg/dL 70-110 TESTED AT [address] (test lqls=8949) [place] [id number] BASIC METABOLIC [id number] 05:16:00 Test Item Value Reference Range Comments SODIUM (BEAKER) (test 135 meq/L 136-145 lebk=567) POTASSIUM (BEAKER) (test 4.1 meq/L 3.5-5.1 zmug=151) CHLORIDE (BEAKER) (test 103 meq/L 98-107 xhsc=356) CO2 (BEAKER) (test 22 meq/L 22-29 pcmw=611) BLOOD UREA NITROGEN 19 mg/dL 7-21 (BEAKER) (test ultj=015) CREATININE (BEAKER) (test 0.69 mg/dL 0.57-1.25 qkrw=777) GLUCOSE RANDOM (BEAKER) 131 mg/dL 70-105 (test hkje=390) CALCIUM (BEAKER) (test 9.3 mg/dL 8.4-10.2 yzue=203) EGFR (BEAKER) (test mL/min/1.73 sq m INSUFFICIENT CLINICAL DATA gufl=5054) TO CALCULATE ESTIMATED GFR. CBC W/PLT COUNT & AUTO [id number] 04:56:00 Test Item Value Reference Range Comments WHITE BLOOD CELL COUNT (BEAKER) (test pucf=189) 22.3 K/ L 3.5-10.5 RED BLOOD CELL COUNT (BEAKER) (test xsdc=341) 4.71 M/ L 3.93-5.22 HEMOGLOBIN (BEAKER) (test zgpv=534) 11.7 GM/DL 11.2-15.7 HEMATOCRIT (BEAKER) (test touo=142) 37.1 % 34.1-44.9 MEAN CORPUSCULAR VOLUME (BEAKER) (test bmjm=703) 78.8 fL 79.4-94.8 MEAN CORPUSCULAR HEMOGLOBIN (BEAKER) (test 24.8 pg 25.6-32.2 pdua=890) MEAN CORPUSCULAR HEMOGLOBIN CONC (BEAKER) (test 31.5 GM/DL 32.2-35.5 ugrm=498) RED CELL DISTRIBUTION WIDTH (BEAKER) (test 15.0 % 11.7-14.4 qkqu=973) PLATELET COUNT (BEAKER) (test pmvx=218) 529 K/CU MM 150-450 MEAN PLATELET VOLUME (BEAKER) (test idix=501) 8.9 fL 9.4-12.3 NUCLEATED RED BLOOD CELLS (BEAKER) (test 0 /100 WBC 0-0 hqkd=647) NEUTROPHILS RELATIVE PERCENT (BEAKER) (test 84 % rjmd=513) LYMPHOCYTES RELATIVE PERCENT (BEAKER) (test 9 % wpbs=734) MONOCYTES RELATIVE PERCENT (BEAKER) (test 4 % tphk=937) EOSINOPHILS RELATIVE PERCENT (BEAKER) (test 1 % dhzq=755) BASOPHILS RELATIVE PERCENT (BEAKER) (test 0 % vuyb=157) NEUTROPHILS ABSOLUTE COUNT (BEAKER) (test 18.70 K/ L 1.56-6.13 utfd=023) LYMPHOCYTES ABSOLUTE COUNT (BEAKER) (test 2.04 K/ L 1.18-3.74 twcj=316) MONOCYTES ABSOLUTE COUNT (BEAKER) (test 0.99 K/ L 0.24-0.36 medn=702) EOSINOPHILS ABSOLUTE COUNT (BEAKER) (test 0.12 K/ L 0.04-0.36 ezjf=736) BASOPHILS ABSOLUTE COUNT (BEAKER) (test 0.05 K/ L 0.01-0.08 mhyp=095) IMMATURE GRANULOCYTES-RELATIVE PERCENT (BEAKER) 2 % 0-1 (test nhpk=8385) POCT-GLUCOSE [id number] 22:07:00 Test Item Value Reference Range Comments POC-GLUCOSE METER (BEAKER) 157 mg/dL 70-[address] [facility] [address] [facility] (test zyto=6314) [facility] [address] POCT-GLUCOSE [id number] 16:55:00 Test Item Value Reference Range Comments POC-GLUCOSE METER (BEAKER) 146 mg/dL 70-[address] [facility] [address] [facility] (test hict=5638) [facility] [address] TISSUE [id number] 15:23:00Surgical Pathology Report Case: [id number] Authorizing Provider: Robert Tirado MD Collected: 03/04/2018916 Ordering Location: [facility] Received: 03/04/2018920 SERVICES Pathologist: Terry Stanford MD Specimens: A) - Lung, Right Upper Lobe, Right upper lobe endobronchial biopsy B) -Lung, Right Upper Lobe, EBBX. Reflex genetic markers. PART A RIGHT UPPER LOBE LUNG, ENDOBRONCHIAL BIOPSY:ADENOCARCINOMA.SEE DIAGNOSTIC COMMENT.PART B RIGHT UPPER LOBE LUNG, ENDOBRONCHIAL BIOPSY:ADENOCARCINOMA.SEE DIAGNOSTIC COMMENT. Signing Pathologist Direct Phone Line:[phone] Immunohistochemical studies performed on block B1 demonstrate the tumor cells to be positive for TTF1 and Napsin A. They are negative for ER and PAX8. The immunoprofile is most compatible with an adenocarcinoma of pulmonary origin.[id number], 21123, 91367w2, 33941O. Right upper lobe endobronchial biopsy. B. Right [...] stains. BLOCK B1- TTF1, NAPSIN A, ER, ISK3Sinqctgnoowxgrptdgbf technical testing was performed at [facility], Pathology Laboratory where it was developed [...] complexity clinical laboratory testing.FINE NEEDLE ASPIRATE BY [id number] 12 :41:00Medical Cytology Report Case: [id number] Authorizing Provider: Robert Tirado MD Collected: 03/04/2018 1023 Ordering Location: [address] Received: 03/04/2018 1244 Service Pathologist: Ben Vila MD Specimen: Lymph Node, Interlobar, Right, Station 11R LYMPH NODE, INTERLOBAR RIGHT, STATION 11R EBUS FNA BY CLINICIAN (CYTOSPINS OF ASPIRATE): - NEGATIVE FOR MALIGNANCY - LYMPHOCYTES PRESENT Signing Pathologist Direct Phone Line: [phone] signed by Ben Vila MD on 2017 at 12:41 PMPlease also see surgical pathology report [id number] and cytopathology reports [id number], 3646, 3647 and 3648. [id number] massLYMPH NODE, INTERLOBAR RIGHT, STATION 11R EBUS FNA40 mls in cytorich red; 2 cytospinsCollected: [id number]: [id number] interpretation of this case included the use of immunohistochemistry or special stains. Immunohistochemistry technical testing was performed at [facility], Pathology Laboratory where it was developed [...] certified under the Clinical Laboratory Improvement Amendments ol3474 (CLIA-88) as qualified to perform high complexity clinical laboratory testing.[facility], Department of Pathology, [address] [place] [id number], [facility], [facility] of [facility] , [address] [place] [address], KopaaxStan[facility], [facility] of [facility], [address] [place] [address] , LINE NEEDLE ASPIRATE BY [id number] 12:40:00Medical Cytology Report Case: [id number] Authorizing Provider: Robert Tirado MD Collected: 03/04/2018 1008 Ordering Location: [address] Received: 03/04/2018 1244 Service Pathologist: Ben Vila MD Specimen: Lymph Node, Lower Paratracheal, Right, Station 4R LYMPH NODE, LOWER PARATRACHEAL, RIGHT, STATION 4R EBUS FNA BY CLINICIAN (CYTOSPINS AND CELL BLOCK OF ASPIRATE): - NEGATIVE FOR MALIGNANCY Signing Pathologist Direct Phone Line: Smears and cell block show good sampling of anthracotic lymph node without granuloma or neoplasm.Please also see surgical pathology report [id number] and cytopathology reports [id number], 3646, 3647 and 3649. [id number], [id number] massLYMPH NODE, LOWER PARATRACHEAL, RIGHT, STATION 4R EBUS FNA40 mls in cytorich red; 2 cytospins, cell blockCollected: [id number]: [id number] interpretation of this case included the use of immunohistochemistry or special stains. Immunohistochemistry technical testing was performed at [facility], Pathology Laboratory where it was developed [...] qualified to perform high complexity clinical laboratory testing.[facility], Department of Pathology, [address] [place] [id number], [facility], [facility] of [facility], [address] [place] [address], [facility]mtqugStan[facility], [facility] of Pathology, [address] [place] [address], WSVN NEEDLE ASPIRATE BY [id number] 12:38: 00Medical Cytology Report Case: [id number] Authorizing Provider: Robert Tirado MD Collected : 03/04/2018 1002 Ordering Location: [address] Received: 03/04/2018 1244 Service Pathologist: Ben Vila MD Specimen: Lymph Node, Subcarinal, Station 7 LYMPH NODE, SUBCARINAL, STATION 7 EBUS FNA BY CLINICIAN (CYTOSPINS AND CELL BLOCK OF ASPIRATE): - NEGATIVE FOR MALIGNANCY Signing Pathologist Direct Phone Line: Smears and cell block show good sampling of anthracotic lymph nodewithout granuloma or neoplasm.Please also see surgical pathology report [id number] and cytopathology reports [id number], 3646, 3648 and 3649. [id number], [id number] massLYMPH NODE, SUBCARINAL, STATION 7 FNAPrepared cell block(A2) and 2 cytospins from 40 ml cytorich red fixative specimen Collected: [id number]: [id number] interpretation of this case included the use of immunohistochemistry or special stains.Immunohistochemistry technical testing was performed at [facility], Pathology Laboratory where it was [...] qualified to perform high complexity clinical laboratory testing.[facility], Department of Pathology, [address] [place] [address], JuehsnStan[facility], Department of Pathology, [address] [place] [address], Tel BStanford [facility], Department of Pathology, [address] [place] [address] 200[address], MOHR NEEDLE ASPIRATE BY [id number]- 05 12:35:00Medical Cytology Report Case: [id number] Authorizing Provider: Robert Tirado MD Collected: 03/04/2018 1001 Ordering Location: [address] Received: 03/04/2018 1244 Service Pathologist: Ben Vila MD Specimen: Lymph Node, Lower Paratracheal , Left, Station 4L LYMPH NODE, LOWER PARATRACHEAL, LEFT, STATION 4L, FNA BY CLINICIAN (CYTOSPINS OF ASPIRATE): - NEGATIVE FOR MALIGNANCY PREDOMINANTLY BRONCHIAL EPITHELIAL CELLS Signing Pathologist Direct Phone Line: [phone] signed by Ben Vila MD on 03/05/2018 at 12:35 PMPlease also see surgical pathology report [id number] and cytopathology reports [id number], [id number], 3648 and 3649. [id number] massLYMPH NODE, LOWER PARATRACHEAL, LEFT, STATION 4L FNAPrepared 2 cytospins from 40 ml cytorich red fixative sampleCollected: [id number]: [id number] interpretation of this case included the use of immunohistochemistry or special stains. Immunohistochemistry technical testing was performed at [facility], Pathology Laboratory where it was developed [...] qualified to perform high complexity clinical laboratory testing.[facility], Department of Pathology, [address] [place] [address], [facility], [address] [place] [address], Tel ZStan[facility], [facility] of [facility]ology, [address] [place] [address], ZYNS-GLUCOSE [id number] 12:34:00 Test Item Value Reference Range Comments POC-GLUCOSE METER (BEAKER) 119 mg/dL 70-110 TESTED AT [address] (test qxsk=6376) [facility] [address] FINE NEEDLE ASPIRATE BY [id number] 12:34:00Medical Cytology Report Case: [id number] Authorizing Provider: Robert Tirado MD Collected: 03/04/2018 1001 Ordering Location: [address] Received: 1244 Service Pathologist: Ben Vila MD Specimen: Lymph Node, Interlobar, Left, Station 11L LYMPH NODE, INTERLOBAR, LEFT, STATION 11L, FNA BY CLINICIAN ( CYTOSPINS AND CELL BLOCK OF ASPIRATE): - NEGATIVE FOR MALIGNANCY Signing Pathologist Direct Phone Line: [phone] signed by Ben Vila MD on 03/05/2018 at 12:34 PMSmears and cell block show good sampling of anthracotic lymph node without granuloma or neoplasm.Please also see surgical pathology report [id number] and cytopathology reports [id number], 3647 , 3648 and 3649. 80607, 606[address]Ymnq massLYMPH NODE, INTERLOBAR, LEFT, [id number] FNAPrepared cell block(A2) and 2 cytospins from 45 ml cytorich red fixative sampleCollected: [id number]: [id number] interpretation of this case included the use of immunohistochemistry or special stains. Immunohistochemistry technical testing was performed at [facility], Pathology Laboratory where it was developed [...] qualified to perform high complexity clinical laboratory testing.[facility], Department of Pathology, [address] [place] [address], Tel [facility]Stan[facility], [facility], [address] [place] [address], DfnwfhStanford University [facility], [facility] of [facility]ology, [address] [place] [address], Tel [id number]-[id number] [id number] 08:25:00 Test Item Value Reference Range Comments POC-GLUCOSE METER (BEAKER) 114 mg/dL 70-110 TESTED AT [address] (test xsmp=3198) [facility] [address] BASIC METABOLIC [id number] 05:45:00 Test Item Value Reference Range Comments SODIUM (BEAKER) (test 136 meq/L 136-145 hves=205) POTASSIUM (BEAKER) (test 4.5 meq/L 3.5-5.1 Specimen slightly morx=741) hemolyzed CHLORIDE (BEAKER) (test 104 meq/L 98-107 itbw=828) CO2 (BEAKER) (test 24 meq/L 22-29 yczx=194) BLOOD UREA NITROGEN 18 mg/dL 7-21 (BEAKER) (test qagh=408) CREATININE (BEAKER) (test 0.72 mg/dL 0.57-1.25 Specimen slightly dawl=969) hemolyzed GLUCOSE RANDOM (BEAKER) 126 mg/dL 70-105 (test icfd=546) CALCIUM (BEAKER) (test 9.8 mg/dL 8.4-10.2 ttup=957) EGFR (BEAKER) (test mL/min/1.73 sq m INSUFFICIENT CLINICAL DATA ntia=1302) TO CALCULATE ESTIMATED GFR. CBC W/PLT COUNT & AUTO [id number] 05:42:00 Test Item Value Reference Range Comments WHITE BLOOD CELL COUNT (BEAKER) (test ojwl=068) 22.5 K/ L 3.5-10.5 RED BLOOD CELL COUNT (BEAKER) (test bmdo=503) 5.03 M/ L 3.93-5.22 HEMOGLOBIN (BEAKER) (test qhit=512) 12.6 GM/DL 11.2-15.7 HEMATOCRIT (BEAKER) (test gydo=512) 40.7 % 34.1-44.9 MEAN CORPUSCULAR VOLUME (BEAKER) (test hwiv=159) 80.9 fL 79.4-94.8 MEAN CORPUSCULAR HEMOGLOBIN (BEAKER) (test 25.0 pg 25.6-32.2 zqgu=499) MEAN CORPUSCULAR HEMOGLOBIN CONC (BEAKER) (test 31.0 GM/DL 32.2-35.5 noqp=587) RED CELL DISTRIBUTION WIDTH (BEAKER) (test 15.0 % 11.7-14.4 impc=079) PLATELET COUNT (BEAKER) (test dvkp=216) 543 K/CU MM 150-450 MEAN PLATELET VOLUME (BEAKER) (test cmek=159) 9.5 fL 9.4-12.3 NUCLEATED RED BLOOD CELLS (BEAKER) (test 0 /100 WBC 0-0 oqyo=258) NEUTROPHILS RELATIVE PERCENT (BEAKER) (test 86 % vqac=907) LYMPHOCYTES RELATIVE PERCENT (BEAKER) (test 8 % wwpt=675) MONOCYTES RELATIVE PERCENT (BEAKER) (test 4 % mntl=532) EOSINOPHILS RELATIVE PERCENT (BEAKER) (test 0 % ygrx=147) BASOPHILS RELATIVE PERCENT (BEAKER) (test 0 % bhzh=725) NEUTROPHILS ABSOLUTE COUNT (BEAKER) (test 19.38 K/ L 1.56-6.13 urws=572) LYMPHOCYTES ABSOLUTE COUNT (BEAKER) (test 1.81 K/ L 1.18-3.74 uocg=161) MONOCYTES ABSOLUTE COUNT (BEAKER) (test 0.99 K/ L 0.24-0.36 gzog=250) EOSINOPHILS ABSOLUTE COUNT (BEAKER) (test 0.05 K/ L 0.04-0.36 giqu=116) BASOPHILS ABSOLUTE COUNT (BEAKER) (test 0.04 K/ L 0.01-0.08 orxn=147) IMMATURE GRANULOCYTES-RELATIVE PERCENT (BEAKER) 1 % 0-1 (test rwlk=7501) BLOOD [id number] 23:01:00 Test Item Value Reference Range Comments CULTURE (BEAKER) (test ocdq=5590) No growth in 5 days POCT-GLUCOSE [id number] 20:32:00 Test Item Value Reference Range Comments POC-GLUCOSE METER (BEAKER) 122 mg/dL 70-110 TESTED AT [address] (test sqoy=1174) [place] [address] POCT-GLUCOSE [id number] 17:53:00 Test Item Value Reference Range Comments POC-GLUCOSE METER (BEAKER) 199 mg/dL 70-110 TESTED AT [address] (test mljl=6009) [place] [address] EBUS FNA [id number] 14:00:00 Test Item Value Reference Range Comments CYTOLOGY RESULT POINTER (BEAKER) (test See Separate Report rehm=5148) EBUS FNA [id number] 14:00:00 Test Item Value Reference Range Comments CYTOLOGY RESULT POINTER (BEAKER) (test See Separate Report pgcq=2255) EBUS FNA [id number] 14:00:00 Test Item Value Reference Range Comments CYTOLOGY RESULT POINTER (BEAKER) (test See Separate Report ltzp=5538) EBUS FNA [id number] 14:00:00 Test Item Value Reference Range Comments CYTOLOGY RESULT POINTER (BEAKER) (test See Separate Report ncmc=7648) EBUS FNA [id number] 14:00:00 Test Item Value Reference Range Comments CYTOLOGY RESULT POINTER (BEAKER) (test See Separate Report vrus=8827) POCT-GLUCOSE [id number] 12:06:00 Test Item Value Reference Range Comments POC-GLUCOSE METER (BEAKER) 114 mg/dL 70-110 TESTED AT [address] (test fdsz=0079) [place] [address] BLOOD [id number] 10:00:00 Test Item Value Reference Range Comments CULTURE (BEAKER) (test zczb=2416) No growth in 5 days POCT-GLUCOSE [id number] 08:22:00 Test Item Value Reference Range Comments POC-GLUCOSE METER (BEAKER) 120 mg/dL 70-110 TESTED AT [address] (test exho=9108) [place] [address] [id number] 06:39:00 Test Item Value Reference Range Comments PARTIAL THROMBOPLASTIN TIME (BEAKER) (test 25.2 seconds 22.5-36.0 xxgm=186) PROTHROMBIN TIME/[id number] 06:38:00 Test Item Value Reference Range Comments PROTIME (BEAKER) (test abpm=637) 13.6 seconds 11.7-14.7 INR (BEAKER) (test dhab=912) 1.0 <=5.9 RECOMMENDED COUMADIN/WARFARIN INR THERAPY RANGESSTANDARD DOSE: 2.0 - 3.0 Includes: PROPHYLAXIS forvenous thrombosis, systemic embolization; TREATMENT for venous thrombosis and/or pulmonary embolus.HIGH RISK: Target INR is 2.5-3.5 for patients with mechanical heart valves.BASIC METABOLIC [id number] 06:38: 00 Test Item Value Reference Range Comments SODIUM (BEAKER) (test 136 meq/L 136-145 pyzz=480) POTASSIUM (BEAKER) (test 4.4 meq/L 3.5-5.1 fnti=301) CHLORIDE (BEAKER) (test 105 meq/L 98-107 kdty=053) CO2 (BEAKER) (test 23 meq/L 22-29 kqle=854) BLOOD UREA NITROGEN 19 mg/dL 7-21 (BEAKER) (test sjij=045) CREATININE (BEAKER) (test 0.66 mg/dL 0.57-1.25 aapk=014) GLUCOSE RANDOM (BEAKER) 120 mg/dL 70-105 (test ctim=302) CALCIUM (BEAKER) (test 9.9 mg/dL 8.4-10.2 ykal=257) EGFR (BEAKER) (test mL/min/1.73 sq m INSUFFICIENT CLINICAL DATA oxuy=2392) TO CALCULATE ESTIMATED GFR. CBC W/PLT COUNT & AUTO [id number] 06:19:00 Test Item Value Reference Range Comments WHITE BLOOD CELL COUNT (BEAKER) (test zwsg=675) 22.5 K/ L 3.5-10.5 RED BLOOD CELL COUNT (BEAKER) (test phtu=448) 4.92 M/ L 3.93-5.22 HEMOGLOBIN (BEAKER) (test ypiz=541) 12.4 GM/DL 11.2-15.7 HEMATOCRIT (BEAKER) (test npwc=360) 39.7 % 34.1-44.9 MEAN CORPUSCULAR VOLUME (BEAKER) (test csur=462) 80.7 fL 79.4-94.8 MEAN CORPUSCULAR HEMOGLOBIN (BEAKER) (test 25.2 pg 25.6-32.2 wike=227) MEAN CORPUSCULAR HEMOGLOBIN CONC (BEAKER) (test 31.2 GM/DL 32.2-35.5 okvm=390) RED CELL DISTRIBUTION WIDTH (BEAKER) (test 14.6 % 11.7-14.4 nglu=747) PLATELET COUNT (BEAKER) (test wfkb=490) 570 K/CU MM 150-450 MEAN PLATELET VOLUME (BEAKER) (test toao=387) 9.0 fL 9.4-12.3 NUCLEATED RED BLOOD CELLS (BEAKER) (test 0 /100 WBC 0-0 zyzm=537) NEUTROPHILS RELATIVE PERCENT (BEAKER) (test 83 % pzfy=887) LYMPHOCYTES RELATIVE PERCENT (BEAKER) (test 11 % enxu=435) MONOCYTES RELATIVE PERCENT (BEAKER) (test 5 % tgdy=399) EOSINOPHILS RELATIVE PERCENT (BEAKER) (test 0 % krag=123) BASOPHILS RELATIVE PERCENT (BEAKER) (test 0 % aqzb=640) NEUTROPHILS ABSOLUTE COUNT (BEAKER) (test 18.65 K/ L 1.56-6.13 syip=611) LYMPHOCYTES ABSOLUTE COUNT (BEAKER) (test 2.36 K/ L 1.18-3.74 ywgr=683) MONOCYTES ABSOLUTE COUNT (BEAKER) (test 1.01 K/ L 0.24-0.36 pmnx=888) EOSINOPHILS ABSOLUTE COUNT (BEAKER) (test 0.09 K/ L 0.04-0.36 wnjt=381) BASOPHILS ABSOLUTE COUNT (BEAKER) (test 0.07 K/ L 0.01-0.08 lqhq=327) IMMATURE GRANULOCYTES-RELATIVE PERCENT (BEAKER) 2 % 0-1 (test oraa=5219) POCT-GLUCOSE [id number] 22:29:00 Test Item Value Reference Range Comments POC-GLUCOSE METER (BEAKER) 175 mg/dL 70-110 TESTED AT [place] [id number] [facility] (test nztw=2396) [facility] [address] BONE AND/OR JOINT IMAGING, WHOLE [id number] 15:34:00No histologic dx yet, but brain met with lung mass.FINAL REPORT PROCEDURE: BONE SCAN, WHOLE BODY CPT CODE: 22010 INDICATION: Right lung cancer with cerebellar metastasis [...] Verified Date/Time: 03/03/2018 15:34: 30 Reading Location: [address] Reading Room POCT-GLUCOSE [id number] 11:44:00 Test Item Value Reference Range Comments POC-GLUCOSE METER (BEAKER) 180 mg/dL 70-110 TESTED AT [address] (test qiiy=1216) [facility] [address] POCT-GLUCOSE [id number] 08:31:00 Test Item Value Reference Range Comments POC-GLUCOSE METER (BEAKER) 111 mg/dL 70-110 TESTED AT [address] (test mrwg=8615) [facility] [address] CBC W/PLT COUNT & AUTO [id number] 05:37:00 Test Item Value Reference Range Comments WHITE BLOOD CELL COUNT (BEAKER) (test miaf=667) 18.9 K/ L 3.5-10.5 RED BLOOD CELL COUNT (BEAKER) (test moou=448) 4.58 M/ L 3.93-5.22 HEMOGLOBIN (BEAKER) (test pdcw=170) 11.6 GM/DL 11.2-15.7 HEMATOCRIT (BEAKER) (test ebst=907) 36.7 % 34.1-44.9 MEAN CORPUSCULAR VOLUME (BEAKER) (test hqcs=544) 80.1 fL 79.4-94.8 MEAN CORPUSCULAR HEMOGLOBIN (BEAKER) (test 25.3 pg 25.6-32.2 gqed=440) MEAN CORPUSCULAR HEMOGLOBIN CONC (BEAKER) (test 31.6 GM/DL 32.2-35.5 wuwj=070) RED CELL DISTRIBUTION WIDTH (BEAKER) (test 14.4 % 11.7-14.4 wxlo=623) PLATELET COUNT (BEAKER) (test ukqd=773) 505 K/CU MM 150-450 MEAN PLATELET VOLUME (BEAKER) (test wgaf=172) 9.1 fL 9.4-12.3 NUCLEATED RED BLOOD CELLS (BEAKER) (test 0 /100 WBC 0-0 zfvp=857) NEUTROPHILS RELATIVE PERCENT (BEAKER) (test 82 % magy=226) LYMPHOCYTES RELATIVE PERCENT (BEAKER) (test 11 % drnv=857) MONOCYTES RELATIVE PERCENT (BEAKER) (test 5 % mwti=000) EOSINOPHILS RELATIVE PERCENT (BEAKER) (test 1 % vwxs=888) BASOPHILS RELATIVE PERCENT (BEAKER) (test 0 % nfsy=286) NEUTROPHILS ABSOLUTE COUNT (BEAKER) (test 15.57 K/ L 1.56-6.13 nlyj=439) LYMPHOCYTES ABSOLUTE COUNT (BEAKER) (test 2.05 K/ L 1.18-3.74 ozru=219) MONOCYTES ABSOLUTE COUNT (BEAKER) (test 0.92 K/ L 0.24-0.36 ziha=279) EOSINOPHILS ABSOLUTE COUNT (BEAKER) (test 0.13 K/ L 0.04-0.36 dyab=621) BASOPHILS ABSOLUTE COUNT (BEAKER) (test 0.01 K/ L 0.01-0.08 dolk=017) IMMATURE GRANULOCYTES-RELATIVE PERCENT (BEAKER) 1 % 0-1 (test jjdw=0787) POCT-GLUCOSE [id number] 21:27:00 Test Item Value Reference Range Comments POC-GLUCOSE METER (BEAKER) 202 mg/dL 70-110 TESTED AT [address] (test lcem=8512) [place] [address] POCT-GLUCOSE [id number] 13:34:00 Test Item Value Reference Range Comments POC-GLUCOSE METER (BEAKER) 94 mg/dL 70-110 TESTED AT [address] (test hvsl=7303) [place] [address] POCT-GLUCOSE [id number] 08:43:00 Test Item Value Reference Range Comments POC-GLUCOSE METER (BEAKER) 118 mg/dL 70-110 TESTED AT [address] (test bwmv=4722) [place] [address] URINALYSIS W/ REFLEX URINE [id number] 07:40:00 Test Item Value Reference Range Comments COLOR (BEAKER) (test mxlm=250) Light Yellow CLARITY (BEAKER) (test mnox=825) Hazy SPECIFIC GRAVITY UA (BEAKER) (test yiry=556) 1.019 1.001-1.035 PH UA (BEAKER) (test cila=026) 7.0 5.0-8.0 PROTEIN UA (BEAKER) (test oshi=252) Negative Negative GLUCOSE UA (BEAKER) (test omql=511) Negative Negative KETONES UA (BEAKER) (test ivcx=076) Negative Negative BILIRUBIN UA (BEAKER) (test psnd=086) Negative Negative BLOOD UA (BEAKER) (test sidv=732) Negative Negative NITRITE UA (BEAKER) (test zugz=181) Negative Negative LEUKOCYTE ESTERASE UA (BEAKER) (test hwdp=309) Negative Negative UROBILINOGEN UA (BEAKER) (test rnig=423) 0.2 mg/dL 0.2-1.0 RBC UA (BEAKER) (test avbg=588) 2 /HPF WBC UA (BEAKER) (test rdpm=741) 0 /HPF MUCUS (BEAKER) (test vbix=6060) Rare SQUAMOUS EPITHELIAL (BEAKER) (test iimz=581) < /HPF SOURCE(BEAKER) (test lweo=6084) BASIC METABOLIC [id number] 07:17:00 Test Item Value Reference Range Comments SODIUM (BEAKER) (test 136 meq/L 136-145 wgua=224) POTASSIUM (BEAKER) (test 4.1 meq/L 3.5-5.1 dsua=513) CHLORIDE (BEAKER) (test 106 meq/L 98-107 wwal=500) CO2 (BEAKER) (test 23 meq/L 22-29 tfpt=270) BLOOD UREA NITROGEN 21 mg/dL 7-21 (BEAKER) (test vmfi=189) CREATININE (BEAKER) (test 0.76 mg/dL 0.57-1.25 mayh=441) GLUCOSE RANDOM (BEAKER) 115 mg/dL 70-105 (test puso=987) CALCIUM (BEAKER) (test 9.7 mg/dL 8.4-10.2 akht=131) EGFR (BEAKER) (test mL/min/1.73 sq m INSUFFICIENT CLINICAL DATA sqhk=6680) TO CALCULATE ESTIMATED GFR. CBC W/PLT COUNT & AUTO [id number] 06:15:00 Test Item Value Reference Range Comments WHITE BLOOD CELL COUNT (BEAKER) (test ixql=432) 18.3 K/ L 3.5-10.5 RED BLOOD CELL COUNT (BEAKER) (test wefj=599) 4.56 M/ L 3.93-5.22 HEMOGLOBIN (BEAKER) (test icrz=932) 11.3 GM/DL 11.2-15.7 HEMATOCRIT (BEAKER) (test yoxw=704) 36.2 % 34.1-44.9 MEAN CORPUSCULAR VOLUME (BEAKER) (test dvwe=306) 79.4 fL 79.4-94.8 MEAN CORPUSCULAR HEMOGLOBIN (BEAKER) (test 24.8 pg 25.6-32.2 apge=139) MEAN CORPUSCULAR HEMOGLOBIN CONC (BEAKER) (test 31.2 GM/DL 32.2-35.5 rfem=450) RED CELL DISTRIBUTION WIDTH (BEAKER) (test 14.5 % 11.7-14.4 wnpu=579) PLATELET COUNT (BEAKER) (test wwpu=817) 529 K/CU MM 150-450 MEAN PLATELET VOLUME (BEAKER) (test obhk=344) 8.9 fL 9.4-12.3 NUCLEATED RED BLOOD CELLS (BEAKER) (test 0 /100 WBC 0-0 czil=168) NEUTROPHILS RELATIVE PERCENT (BEAKER) (test 85 % ayzl=266) LYMPHOCYTES RELATIVE PERCENT (BEAKER) (test 9 % ewid=744) MONOCYTES RELATIVE PERCENT (BEAKER) (test 5 % kcdt=224) EOSINOPHILS RELATIVE PERCENT (BEAKER) (test 0 % jjad=338) BASOPHILS RELATIVE PERCENT (BEAKER) (test 0 % txge=692) NEUTROPHILS ABSOLUTE COUNT (BEAKER) (test 15.60 K/ L 1.56-6.13 ewmk=383) LYMPHOCYTES ABSOLUTE COUNT (BEAKER) (test 1.67 K/ L 1.18-3.74 pitn=174) MONOCYTES ABSOLUTE COUNT (BEAKER) (test 0.84 K/ L 0.24-0.36 jffy=326) EOSINOPHILS ABSOLUTE COUNT (BEAKER) (test 0.04 K/ L 0.04-0.36 onnb=310) BASOPHILS ABSOLUTE COUNT (BEAKER) (test 0.03 K/ L 0.01-0.08 xgqd=159) IMMATURE GRANULOCYTES-RELATIVE PERCENT (BEAKER) 1 % 0-1 (test jhnp=1386) POCT-GLUCOSE [id number] 21:08:00 Test Item Value Reference Range Comments POC-GLUCOSE METER (BEAKER) 175 mg/dL 70-[address] [facility] [address] [facility] (test hvwr=0450) [facility] [address] POCT-GLUCOSE [id number] 17:48:00 Test Item Value Reference Range Comments POC-GLUCOSE METER (BEAKER) 114 mg/dL 70-110 TESTED AT [address] (test cfys=8314) [facility] [address] POCT-GLUCOSE [id number] 12:27:00 Test Item Value Reference Range Comments POC-GLUCOSE METER (BEAKER) 119 mg/dL 70-110 TESTED AT [address] (test fasm=1872) [facility] [address] BASIC METABOLIC [id number] 08:12:00 Test Item Value Reference Range Comments SODIUM (BEAKER) (test 136 meq/L 136-145 ziyb=119) POTASSIUM (BEAKER) (test 4.1 meq/L 3.5-5.1 fcde=585) CHLORIDE (BEAKER) (test 105 meq/L 98-107 fdft=325) CO2 (BEAKER) (test 22 meq/L 22-29 sjoc=428) BLOOD UREA NITROGEN 19 mg/dL 7-21 (BEAKER) (test nuyh=456) CREATININE (BEAKER) (test 0.65 mg/dL 0.57-1.25 xvzl=973) GLUCOSE RANDOM (BEAKER) 110 mg/dL 70-105 (test hnti=870) CALCIUM (BEAKER) (test 9.8 mg/dL 8.4-10.2 qxca=453) EGFR (BEAKER) (test mL/min/1.73 sq m INSUFFICIENT CLINICAL DATA cmzp=2803) TO CALCULATE ESTIMATED GFR. CBC W/PLT COUNT & AUTO [id number] 07:21:00 Test Item Value Reference Range Comments WHITE BLOOD CELL COUNT (BEAKER) (test wsqx=757) 20.8 K/ L 3.5-10.5 RED BLOOD CELL COUNT (BEAKER) (test lwqu=888) 4.46 M/ L 3.93-5.22 HEMOGLOBIN (BEAKER) (test fcel=575) 11.2 GM/DL 11.2-15.7 HEMATOCRIT (BEAKER) (test jwjk=959) 35.1 % 34.1-44.9 MEAN CORPUSCULAR VOLUME (BEAKER) (test bmgl=664) 78.7 fL 79.4-94.8 MEAN CORPUSCULAR HEMOGLOBIN (BEAKER) (test 25.1 pg 25.6-32.2 sfva=287) MEAN CORPUSCULAR HEMOGLOBIN CONC (BEAKER) (test 31.9 GM/DL 32.2-35.5 mvqg=983) RED CELL DISTRIBUTION WIDTH (BEAKER) (test 14.2 % 11.7-14.4 gyud=820) PLATELET COUNT (BEAKER) (test vuox=579) 549 K/CU MM 150-450 MEAN PLATELET VOLUME (BEAKER) (test cydo=858) 9.0 fL 9.4-12.3 NUCLEATED RED BLOOD CELLS (BEAKER) (test 0 /100 WBC 0-0 blcj=697) NEUTROPHILS RELATIVE PERCENT (BEAKER) (test 86 % iwvp=517) LYMPHOCYTES RELATIVE PERCENT (BEAKER) (test 9 % jlbm=472) MONOCYTES RELATIVE PERCENT (BEAKER) (test 4 % iijw=844) EOSINOPHILS RELATIVE PERCENT (BEAKER) (test 0 % mjbo=157) BASOPHILS RELATIVE PERCENT (BEAKER) (test 0 % nosp=100) NEUTROPHILS ABSOLUTE COUNT (BEAKER) (test 17.91 K/ L 1.56-6.13 eons=695) LYMPHOCYTES ABSOLUTE COUNT (BEAKER) (test 1.79 K/ L 1.18-3.74 ppsi=184) MONOCYTES ABSOLUTE COUNT (BEAKER) (test 0.81 K/ L 0.24-0.36 ejpk=395) EOSINOPHILS ABSOLUTE COUNT (BEAKER) (test 0.03 K/ L 0.04-0.36 zkou=249) BASOPHILS ABSOLUTE COUNT (BEAKER) (test 0.04 K/ L 0.01-0.08 tsub=211) IMMATURE GRANULOCYTES-RELATIVE PERCENT (BEAKER) 1 % 0-1 (test inbk=7960) POCT-GLUCOSE [id number] 06:08:00 Test Item Value Reference Range Comments POC-GLUCOSE METER (BEAKER) 113 mg/dL 70-[address] [facility] [address] [place] (test dzli=5726) [facility] [address] POCT-GLUCOSE [id number] 18:58:00 Test Item Value Reference Range Comments POC-GLUCOSE METER (BEAKER) 117 mg/dL 70-[address] [facility] [address] [place] (test ipoe=2047) [facility] [address] CT, CHEST, WITH [id number] 15:20:00FINAL REPORT CT of the Chest, abdomen [...] Date/Time: 02/28/2018 15:20: 36 Reading Location: [facility] C013Y CT Body Reading Room CT, [id number] 15:20: 00FINAL REPORT CT of the Chest, [...] MDRort Verified Date/Time: 02/28/2018 15:20:36 Reading Location: [facility] B1 C013Y CT Body Reading Room POCT-GLUCOSE [id number] 08:55:00 Test Item Value Reference Range Comments POC-GLUCOSE METER (NEENA) 125 mg/dL 70-[address] [facility] [address] [facility] (test uozi=8250) [facility] [address] MR, BRAIN, [id number] 07:59:00STEALTH protocolFINAL REPORT MRI Brain with and [...] Date/Time : 02/28/2018 07:59:07 Reading Location: [facility] C0[facility] Neuro Reading Room POCT- GLUCOSE [id number] 06:39:00 Test Item Value Reference Range Comments POC-GLUCOSE METER (BEAKER) 150 mg/dL 70-[address] [facility] [address] [facility] (test ecoh=0504) [facility] [address] BASIC METABOLIC [id number] 05:51:00 Test Item Value Reference Range Comments SODIUM (BEAKER) (test 137 meq/L 136-145 vmop=948) POTASSIUM (BEAKER) (test 3.8 meq/L 3.5-5.1 tifz=065) CHLORIDE (BEAKER) (test 104 meq/L 98-107 boxw=034) CO2 (BEAKER) (test 24 meq/L 22-29 tenq=432) BLOOD UREA NITROGEN 13 mg/dL 7-21 (BEAKER) (test yofo=617) CREATININE (BEAKER) (test 0.72 mg/dL 0.57-1.25 dlog=702) GLUCOSE RANDOM (BEAKER) 131 mg/dL 70-105 (test coua=859) CALCIUM (BEAKER) (test 9.9 mg/dL 8.4-10.2 blan=269) EGFR (BEAKER) (test mL/min/1.73 sq m INSUFFICIENT CLINICAL DATA whvt=6826) TO CALCULATE ESTIMATED GFR. CBC W/PLT COUNT & AUTO [id number] 04:09:00 Test Item Value Reference Range Comments WHITE BLOOD CELL COUNT (BEAKER) (test olng=369) 18.5 K/ L 3.5-10.5 RED BLOOD CELL COUNT (BEAKER) (test ngyy=632) 4.50 M/ L 3.93-5.22 HEMOGLOBIN (BEAKER) (test muxw=091) 11.2 GM/DL 11.2-15.7 HEMATOCRIT (BEAKER) (test kklo=696) 35.7 % 34.1-44.9 MEAN CORPUSCULAR VOLUME (BEAKER) (test bhuh=812) 79.3 fL 79.4-94.8 MEAN CORPUSCULAR HEMOGLOBIN (BEAKER) (test 24.9 pg 25.6-32.2 ttcb=231) MEAN CORPUSCULAR HEMOGLOBIN CONC (BEAKER) (test 31.4 GM/DL 32.2-35.5 yiws=845) RED CELL DISTRIBUTION WIDTH (BEAKER) (test 14.0 % 11.7-14.4 gjte=238) PLATELET COUNT (BEAKER) (test wqnz=631) 590 K/CU MM 150-450 MEAN PLATELET VOLUME (BEAKER) (test fqbv=934) 9.2 fL 9.4-12.3 NUCLEATED RED BLOOD CELLS (BEAKER) (test 0 /100 WBC 0-0 gtyr=351) NEUTROPHILS RELATIVE PERCENT (BEAKER) (test 90 % crcv=531) LYMPHOCYTES RELATIVE PERCENT (BEAKER) (test 7 % pzax=217) MONOCYTES RELATIVE PERCENT (BEAKER) (test 2 % ljpu=687) EOSINOPHILS RELATIVE PERCENT (BEAKER) (test 0 % anxk=289) BASOPHILS RELATIVE PERCENT (BEAKER) (test 0 % pdyf=883) NEUTROPHILS ABSOLUTE COUNT (BEAKER) (test 16.64 K/ L 1.56-6.13 rpbk=526) LYMPHOCYTES ABSOLUTE COUNT (BEAKER) (test 1.26 K/ L 1.18-3.74 lsyk=120) MONOCYTES ABSOLUTE COUNT (BEAKER) (test 0.44 K/ L 0.24-0.36 qjbn=177) EOSINOPHILS ABSOLUTE COUNT (BEAKER) (test 0.01 K/ L 0.04-0.36 ydsd=353) BASOPHILS ABSOLUTE COUNT (BEAKER) (test 0.03 K/ L 0.01-0.08 izbx=456) IMMATURE GRANULOCYTES-RELATIVE PERCENT (BEAKER) 1 % 0-1 (test zhsd=9466) POCT-GLUCOSE [id number] 00:17:00 Test Item Value Reference Range Comments POC-GLUCOSE METER (BEAKER) 122 mg/dL 70-110 TESTED AT [address] (test yjgu=2488) [place] [address] POCT-GLUCOSE [id number] 18:35:00 Test Item Value Reference Range Comments POC-GLUCOSE METER (BEAKER) 134 mg/dL 70-110 TESTED AT [address] (test zkkl=3113) [place] [address] POCT-GLUCOSE [id number] 12:10:00 Test Item Value Reference Range Comments POC-GLUCOSE METER (BEAKER) 146 mg/dL 70-110 TESTED AT [address] (test jqgl=6296) [place] [address] [id number] 07:56:00 Test Item Value Reference Range Comments PROCALCITONIN (BEAKER) (test otax=0460) < ng/mL <0.05 SEPSIS RISK (ng/mL)Low: 0.05-0.50Intermediate: 0.51-2.00High: & gt;=2.01LACTATE DEHYDROGENASE (LDH)2018-02-27 06:52:00 Test Item Value Reference Range Comments LACTATE DEHYDROGENASE (BEAKER) (test pbrt=087) 146 U/L 125-220 C-REACTIVE [id number] 06:52:00 Test Item Value Reference Range Comments C-REACTIVE PROTEIN (BEAKER) (test tzdm=380) 8.22 mg/dL 0.00-0.50 LACTIC ACID, ARTERIAL, WHOLE [id number] 06:01:00 Test Item Value Reference Range Comments LACTATE BLOOD ARTERIAL (2) (BEAKER) (test 1.0 mmol/L 0.5-2.2 hazm=8487) BASIC METABOLIC [id number] 05:52:00 Test Item Value Reference Range Comments SODIUM (BEAKER) (test 137 meq/L 136-145 hyty=486) POTASSIUM (BEAKER) (test 4.2 meq/L 3.5-5.1 Specimen slightly bpnn=427) hemolyzed CHLORIDE (BEAKER) (test 105 meq/L 98-107 jslc=316) CO2 (BEAKER) (test 25 meq/L 22-29 twbt=189) BLOOD UREA NITROGEN 13 mg/dL 7-21 (BEAKER) (test dksf=285) CREATININE (BEAKER) (test 0.74 mg/dL 0.57-1.25 Specimen slightly rujq=007) hemolyzed GLUCOSE RANDOM (BEAKER) 93 mg/dL 70-105 (test angl=956) CALCIUM (BEAKER) (test 9.4 mg/dL 8.4-10.2 xuah=990) EGFR (BEAKER) (test mL/min/1.73 sq m INSUFFICIENT CLINICAL DATA polu=3909) TO CALCULATE ESTIMATED GFR. TROPONIN [id number] 05:48:00 Test Item Value Reference Range Comments TROPONIN I (BEAKER) (test zaxu=149) < ng/mL 0.00-0.03 [id number] 05:43:00 Test Item Value Reference Range Comments MAGNESIUM (BEAKER) (test 2.1 mg/dL 1.6-2.6 Specimen slightly hemolyzed hpmr=302) [id number] 05:43:00 Test Item Value Reference Range Comments PHOSPHORUS (BEAKER) (test 4.1 mg/dL 2.3-4.7 Specimen slightly hemolyzed upes=177) CBC W/PLT COUNT & AUTO [id number] 05:34:00 Test Item Value Reference Range Comments WHITE BLOOD CELL COUNT (BEAKER) (test jppd=655) 13.1 K/ L 3.5-10.5 RED BLOOD CELL COUNT (BEAKER) (test ndgd=509) 4.42 M/ L 3.93-5.22 HEMOGLOBIN (BEAKER) (test mktr=116) 11.2 GM/DL 11.2-15.7 HEMATOCRIT (BEAKER) (test sxlb=324) 35.7 % 34.1-44.9 MEAN CORPUSCULAR VOLUME (BEAKER) (test wrqd=077) 80.8 fL 79.4-94.8 MEAN CORPUSCULAR HEMOGLOBIN (BEAKER) (test 25.3 pg 25.6-32.2 fahf=918) MEAN CORPUSCULAR HEMOGLOBIN CONC (BEAKER) (test 31.4 GM/DL 32.2-35.5 hdne=796) RED CELL DISTRIBUTION WIDTH (BEAKER) (test 14.2 % 11.7-14.4 cbwd=386) PLATELET COUNT (BEAKER) (test yvqj=354) 490 K/CU MM 150-450 MEAN PLATELET VOLUME (BEAKER) (test vftt=733) 9.0 fL 9.4-12.3 NUCLEATED RED BLOOD CELLS (BEAKER) (test 0 /100 WBC 0-0 bswm=526) NEUTROPHILS RELATIVE PERCENT (BEAKER) (test 63 % joko=163) LYMPHOCYTES RELATIVE PERCENT (BEAKER) (test 25 % gfeg=007) MONOCYTES RELATIVE PERCENT (BEAKER) (test 8 % xdis=217) EOSINOPHILS RELATIVE PERCENT (BEAKER) (test 4 % ltwt=655) BASOPHILS RELATIVE PERCENT (BEAKER) (test 1 % ezqm=905) NEUTROPHILS ABSOLUTE COUNT (BEAKER) (test 8.20 K/ L 1.56-6.13 zqwa=857) LYMPHOCYTES ABSOLUTE COUNT (BEAKER) (test 3.22 K/ L 1.18-3.74 zadp=283) MONOCYTES ABSOLUTE COUNT (BEAKER) (test 0.99 K/ L 0.24-0.36 gbfl=236) EOSINOPHILS ABSOLUTE COUNT (BEAKER) (test 0.57 K/ L 0.04-0.36 gadj=089) BASOPHILS ABSOLUTE COUNT (BEAKER) (test 0.08 K/ L 0.01-0.08 llau=932) IMMATURE GRANULOCYTES-RELATIVE PERCENT (BEAKER) 1 % 0-1 (test wnas=0843) POCT-GLUCOSE [id number] 05:32:00 Test Item Value Reference Range Comments POC-GLUCOSE METER (BEAKER) 118 mg/dL 70-[address] [facility] [address] [facility] (test ktfi=6379) [facility] [address] [id number] 05:20:00 Test Item Value Reference Range Comments PROTIME (BEAKER) (test rixj=399) 13.7 seconds 11.7-14.7 INR (BEAKER) (test mmnl=049) 1.1 <=5.9 PARTIAL THROMBOPLASTIN TIME (BEAKER) (test 26.4 seconds 22.5-36.0 lptj=985) RECOMMENDED COUMADIN/WARFARIN INR THERAPY RANGESSTANDARD DOSE: 2.0 - 3.0 Includes: PROPHYLAXIS forvenous thrombosis, systemic embolization; TREATMENT for venous thrombosis and/or pulmonary embolus.HIGH RISK: Target INR is 2.5-3.5 for patients with mechanical heart valves.PROTHROMBIN [id number] 05:19: 00 Test Item Value Reference Range Comments PROTIME (BEAKER) (test kqkw=748) 13.7 seconds 11.7-14.7 INR (BEAKER) (test aame=499) 1.1 <=5.9 RECOMMENDED COUMADIN/WARFARIN INR THERAPY RANGESSTANDARD DOSE: 2.0 - 3.0 Includes: PROPHYLAXIS forvenous thrombosis, systemic embolization; TREATMENT for venous thrombosis and/or pulmonary embolus.HIGH RISK: Target INR is 2.5-3.5 for patients with mechanical heart valves.
--- OUTSIDE RECORDS SUMMARY | 2019-04-06 12:43 | XMS REPORT ---
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
[2019-04-06 14:28] LABS: Absolute Lymphocytes (CBC) 2.3 K/uL (0.7-4.9); Basophils % 0.9 % (0-1.3); Hematocrit 36.4 % (36.0-45.0); Lymphocytes % 19.2 % (15.3-44.8); MPV 7.1 fL (7.6-11.3); RBC Red Blood Cell Count 4.44 M/uL (3.86-4.86)
--- NOTE | 2019-04-06 14:32 | RAD REPORT ---
EXAM DESCRIPTION: RAD - Chest Single View - 04/06/2019 2:23 pm CLINICAL HISTORY: SOB Chest pain. COMPARISON: Thorax W/ Con dated 03/23/2019 FINDINGS: Portable technique limits examination quality. Right upper lobe lung mass again noted, not grossly different relative to recent comparative CT study . The lungs are otherwise clear. No acute infiltrate seen. The heart is normal in size. No displaced fractures.
[2019-04-06 14:40] LABS: Protime INR 1.19
--- NOTE | 2019-04-06 14:49 | EKG ---
Test Date: 2019-04-06 Test Time: 14:49:04 Demographic Analyst: MARY MEASUREMENT RESULTS: Intervals: Rate: 66 PA: 146 QRSD: 90 QT: 432 QTc: 452 [place]: P: 6 PA: 146 QRS: 34 T: 43 INTERPRETIVE STATEMENTS: Normal sinus rhythm with sinus arrhythmia Normal ECG Compared to ECG 08/09/2014 23:17:26 No significant changes Electronically Signed On 04-06-19 14:49:24 MANAGER DATA [employer]HOUSE by Leodan Ramirez
[2019-04-06 14:50] LABS: ALT/SGPT 19 U/L (12-78); AST/SGOT 11 U/L (15-37); Alkaline Phosphatase 120 U/L (45-117); BUN Blood Urea Nitrogen 13 mg/dL (7-18); Bicarbonate 30 mmol/L (21-32); Bilirubin Direct < 0.1 mg/dL (0-0.2); Bilirubin Total 0.2 mg/dL (0.2-1.0); CKMB Creatine Kinase MB < 1.0 ng/mL (0.3-3.6); Creatine Phosphokinase 43 U/L (26-192); Glucose Level 92 mg/dL (74-106); Lipase 93 U/L (73-393); Magnesium 2.3 mg/dL (1.8-2.4); NT PRO-BNP 189 pg/mL (<125); Potassium 3.4 mmol/L (3.5-5.1); Sodium Level 138 mmol/L (136-145); Troponin (Emerg Dept Use Only) < 0.02 ng/mL (0.0-0.045)
[2019-04-06] MEDS ORDERED: ALBUTEROL 2.5 MG/3 ML NEB SOL ONE (14:54)
[2019-04-06] MEDS ORDERED: IPRATROPIUM BROM 0.5MG/2.5ML ONE (14:54)
[2019-04-06] MEDS ORDERED: KETOROLAC 30 MG/ML INJ ONE (14:54)
--- NOTE | 2019-04-06 15:40 | RAD REPORT ---
EXAM DESCRIPTION: CT - Chest For Pe Angio - 04/06/2019 3:24 pm CLINICAL HISTORY: Chest pain COMPARISON: March 2019. TECHNIQUE: Dynamically enhanced axial 3 mm thick images of the chest were obtained during administra tion of <100> mL Isovue 370 IV contrast. Coronal and oblique reconstruction images were generated and reviewed. Exam utilizes a protocol for optimal evaluation of pulmonary arterial tree. Maximum intensity projections 3D imaging was utilized All CT scans are performed using dose optimization technique as appropriate and may include automated exposure control or mA/KV adjustment according to patient size. FINDINGS: A pulmonary embolus is not seen. A thoracic aortic aneurysm is not noted. A pleural effusion is not seen. A pericardial effusion is not seen. Large right upper lobe mass without significant change. It attenuates the pulmonary vessels. Mediasti nal/ hilar lymphadenopathy without significant change IMPRESSION: Negative for a pulmonary embolism.
--- NOTE | 2019-04-06 19:20 | ER ---
Nurse's Notes [facility] Name: Albania Alfaro Age: 59 yrs Sex: Female : 1960 Arrival Date: 04/06/2019 Time: 12:41 Bed 27 Private MD: Diagnosis: Acute bronchospasm;Chest pain, unspecified Presentation: 04/06 12:44 Presenting complaint: Patient states: 2 days started having shortness of breath, i have tw2 LUNG CANCER upper RIGHT lobe, and one lymph node, so 2 nights ago i started having pain when i lay on my right side, extreme discomfort, and i feel like i am wheezing, i have an inhaler and it helps but i feel like i cant get good breath, i am having to use pillows to prop myself up and yesterday i was exhausted now and it seems it is worse at night. Transition of care: patient was not received from another setting of care. Onset of symptoms was April 06, 2019. Risk Assessment: Do you want to hurt yourself or someone else? Patient reports no desire to harm self or others. Initial Sepsis Screen: Does the patient meet any 2 criteria? No. Patient's initial sepsis screen is negative. Does the patient have a suspected source of infection? No. Patient's initial sepsis screen is negative. Care prior to arrival: None. 12:44 Method Of Arrival: Ambulatory tw2 12:44 Acuity: AILYN 3 tw2 Triage Assessment: 12:47 General: Appears in no apparent distress. Behavior is calm, cooperative, appropriate tw2 for age. Pain: Complains of pain in right side of my chest. Respiratory: Reports shortness of breath at rest on exertion cough that is Onset: The symptoms/episode began/occurred 2 days ago, the patient has moderate shortness of breath. 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 - Social history:: Smoking status: Patient/guardian denies using tobacco, the patient reports quitting approximately 11 years ago. - Ebola Screening: : Patient denies travel to an Ebola-affected area in the 21 days before illness onset. Screenin:27 Abuse screen: Denies threats or abuse. Denies injuries from another. Nutritional rv screening: No deficits noted. Tuberculosis screening: No symptoms or risk factors identified. Fall Risk None identified. Assessment: 14:26 General: Appears in no apparent distress. comfortable, Behavior is calm, cooperative. rv Pain: Complains of pain in head. Neuro: Level of Consciousness is awake, alert, obeys commands, Oriented to person, place, time, situation, Reports headache. Cardiovascular: Rhythm is regular. Respiratory: Reports shortness of breath on exertion Airway is patent Respiratory effort is even, unlabored, Breath sounds are clear bilaterally. 14:55 Reassessment: lab called for elevated D-dimer, relayed to Dr Clifton. patient taken to rv CT scan for Chest PE eval. 16:40 Reassessment: Patient appears in no apparent distress at this time. Patient and/or rv family updated on plan of care and expected duration. Pain level reassessed. Patient is alert, oriented x 3, equal unlabored respirations, skin warm/dry/pink. Patient states feeling better. 17:31 Reassessment: Patient appears in no apparent distress at this time. Patient and/or rv family updated on plan of care and expected duration. Pain level reassessed. Patient is alert, oriented x 3, equal unlabored respirations, skin warm/dry/pink. 19:16 Reassessment: Patient appears in no apparent distress at this time. Patient and/or rv family updated on plan of care and expected duration. Pain level reassessed. Patient is alert, oriented x 3, equal unlabored respirations, skin warm/dry/pink. relayed the result of repeat troponin to Dr Clifton. awaiting discharge orders. Vital Signs: 12:47 BP 123 / 71; Pulse 79; Resp 19; Temp 97.1(TE); Pulse Ox 99% on R/A; Weight 79.83 kg; tw2 Height 5 ft. 4 in. (162.56 cm) (R); Pain 3/10; 14:27 BP 119 / 54; Pulse 76; Resp 14; Pulse Ox 98% on R/A; rv 15:30 BP 110 / 60; Pulse 80; Resp 17; Pulse Ox 100% on R/A; rv 16:00 BP 103 / 61; Pulse 82; Resp 17; Pulse Ox 100% on R/A; rv 17:31 BP 112 / 61; Pulse 86; Resp 19; Pulse Ox 96% on R/A; rv 19:17 BP 119 / 63; Pulse 79; Resp 17; Pulse Ox 98% on R/A; rv 12:47 Body Mass Index 30.21 (79.83 kg, 162.56 cm) tw2 ED Course: 12:41 Patient arrived in ED. as 12:47 Triage completed. tw2 12:47 Arm band placed on. tw2 13:11 Alberto Clifton MD is Attending Physician. tw4 13:47 Jose Webster, KRISTOPHER is Primary Nurse. rv 14:00 EKG done, by farm equipment service technician. reviewed by Alberto Clifton MD. at1 14:10 Initial lab(s) drawn, by me, sent to lab. First set of blood cultures drawn by me, jp3 X-ray(s) taken. Inserted saline lock: 22 gauge in right antecubital area, using aseptic technique. Blood collected. Patient maintains SpO2 saturation greater than 95% on room air. 14:12 Placed in gown. Bed in low position. Call light in reach. Side rails up X 1. Side rails jp3 up X2. Warm blanket given. Verbal reassurance given. potline monitor on. Pulse ox on. NIBP on. 14:25 Second set of blood cultures drawn by me. rv 15:38 CT Chest For PE Angio In Process Unspecified. EDMS 19:17 No provider procedures requiring assistance completed. IV discontinued, intact, rv bleeding controlled, No redness/swelling at site. Pressure dressing applied. Administered Medications: 14:55 Drug: TORadol 30 mg Route: IVP; Site: right antecubital; rv 15:57 Follow up: Response: Pain is decreased rv 15:45 Drug: DuoNeb (3:1) (2.5 mg - 0.5 mg) 3 ml Route: Nebulizer; rv 16:12 Follow up: Response: Marked relief of symptoms rv Outcome: 19:17 Discharged to home ambulatory. rv 19:17 Condition: good 19:17 Discharge instructions given to patient, Instructed on discharge instructions, follow up and referral plans. medication usage, Demonstrated understanding of instructions, follow-up care, medications. 19:18 Discharge ordered by . tw4 19:33 Prescriptions given X 4. rv 19:33 Patient left the ED. rv Signatures: Dispatcher [employer] EDMS Azra Jenkins Amanda, skating rink ice maker EKG Tat1 Sindhu Nava, RN RN tw2 Alberto Clifton MD MD tw4 Jose Webster RN RN rv Xavier Cabrera jp3 Corrections: (The following items were deleted from the chart) 19:31 19:17 Discharge instructions given to patient, Instructed on discharge instructions, rv follow up and referral plans. Demonstrated understanding of instructions, follow-up care, rv
--- NOTE | 2019-04-06 19:20 | EDPHYS ---
Physician Documentation [facility] Name: Albania Alfaro Age: 59 yrs Sex: Female : 1960 Arrival Date: 04/06/2019 Time: 12:41 Bed 27 Private MD: ED Physician Alberto Alvarez HPI: 04/06 21:54 This 59 yrs old Female presents to ER via Ambulatory with complaints of tw4 Shortness Of Breath, Vomiting, Headache. 21:54 The patient has shortness of breath at rest. Onset: The symptoms/episode began/occurred tw4 3 day(s) ago. Duration: The symptoms are intermittent, with no pattern. The patient's shortness of breath is aggravated by coughing, exertion, is alleviated by inhaler. Associated signs and symptoms: Pertinent positives: chest pain, Pertinent negatives: diaphoresis, dizziness, fever, loss of consciousness, nausea, numbness in extremities. Severity of symptoms: At their worst the symptoms were mild in the emergency department the symptoms are unchanged. 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 - Social history:: Smoking status: Patient/guardian denies using tobacco, the patient reports quitting approximately 11 years ago. - Ebola Screening: : Patient denies travel to an Ebola-affected area in the 21 days before illness onset. ROS: 21:54 Constitutional: Negative for fever, chills, and weight loss, Eyes: Negative for injury, tw4 pain, redness, and discharge, Cardiovascular: Negative for chest pain, palpitations, and edema, Abdomen/GI: Negative for abdominal pain, nausea, vomiting, diarrhea, and constipation. 21:54 MS/Extremity: Negative for injury and deformity, Skin: Negative for injury, rash, and discoloration. 21:54 Cardiovascular: Positive for chest pain, with movement, Negative for edema, orthopnea, palpitations, paroxysmal nocturnal dyspnea. 21:54 Respiratory: Positive for shortness of breath, wheezing, Negative for cough, hemoptysis, orthopnea. Exam: 21:54 Constitutional: This is a well developed, well nourished patient who is awake, alert, tw4 and in no acute distress. Head/Face: Normocephalic, atraumatic. Cardiovascular: Regular rate and rhythm with a normal S1 and S2. No gallops, murmurs, or rubs. Normal PMI, no JVD. No pulse deficits. Abdomen/GI: Soft, non-tender, with normal bowel sounds. No distension or tympany. No guarding or rebound. No evidence of tenderness throughout. Back: No spinal tenderness. No costovertebral tenderness. Full range of motion. Skin: Warm, dry with normal turgor. Normal color with no rashes, no lesions, and no evidence of cellulitis. 21:54 MS/ Extremity: Pulses equal, no cyanosis. Neurovascular intact. Full, normal range of motion. Neuro: Awake and alert, GCS 15, oriented to person, place, time, and situation. Cranial nerves II-XII grossly intact. Motor strength 5/5 in all extremities. Sensory grossly intact. Cerebellar exam normal. Normal gait. 21:54 Chest/axilla: Inspection: normal, Palpation: tenderness, that is moderate, that totally reproduces the patient's complaints. 21:54 Respiratory: the patient does not display signs of respiratory distress, Respirations: normal, Breath sounds: wheezing: Vital Signs: 12:47 BP 123 / 71; Pulse 79; Resp 19; Temp 97.1(TE); Pulse Ox 99% on R/A; Weight 79.83 kg; tw2 Height 5 ft. 4 in. (162.56 cm) (R); Pain 3/10; 14:27 BP 119 / 54; Pulse 76; Resp 14; Pulse Ox 98% on R/A; rv 15:30 BP 110 / 60; Pulse 80; Resp 17; Pulse Ox 100% on R/A; rv 16:00 BP 103 / 61; Pulse 82; Resp 17; Pulse Ox 100% on R/A; rv 17:31 BP 112 / 61; Pulse 86; Resp 19; Pulse Ox 96% on R/A; rv 19:17 BP 119 / 63; Pulse 79; Resp 17; Pulse Ox 98% on R/A; rv 12:47 Body Mass Index 30.21 (79.83 kg, 162.56 cm) tw2 MDM: 14:39 Patient medically screened. tw4 21:57 Differential diagnosis: Anxiety Reaction Bronchitis CHF exacerbation, Chronic tw4 Obstructive Pulmonary Disease reactive airway disease. Antibiotic administration: Not indicated. Data reviewed: vital signs, nurses notes. Data reviewed: lab test result(s), CBC, electrolytes, hepatic panel, EKG. Data reviewed: radiologic studies, CT scan, plain films. Test interpretation: by ED physician or midlevel provider: ECG, plain radiologic studies. Counseling: I had a detailed discussion with the patient and/or guardian regarding: the historical points, exam findings, and any diagnostic results supporting the discharge/admit diagnosis, lab results, radiology results. Medication response: albuterol nebulizer treatment(s) relieved the patient's symptoms. The patient is no longer wheezing. Response to treatment: and as a result, I will discharge patient, administer steroids. 04/06 13:11 Order name: Blood Culture Adult (2) [facility] 04/06 13:11 Order name: BMP [facility] 04/06 13:11 Order name: CBC with Diff [facility] 04/06 13:11 Order name: Ckmb [facility] 04/06 13:11 Order name: CPK [facility] 04/06 13:11 Order name: D-Dimer [facility] 04/06 13:11 Order name: Hepatic Function [facility] 04/06 13:11 Order name: Lipase [facility] 04/06 13:11 Order name: Magnesium [facility] 04/06 13:11 Order name: NT PRO-BNP [facility] 04/06 13:11 Order name: PT-INR [facility] 04/06 13:11 Order name: Ptt, Activated [facility] 04/06 13:11 Order name: Troponin (emerg Dept Use Only) [facility] 04/06 18:14 Order name: Troponin (emerg Dept Use Only) 04/06 13:11 Order name: XRAY CXR (1 view) [facility] 04/06 13:11 Order name: EKG; Complete Time: 13:13 04/06 13:11 Order name: Cardiac monitoring; Complete Time: 14:20 04/06 13:11 Order name: EKG - Nurse/Tech; Complete Time: 14:20 04/06 13:11 Order name: IV Saline Lock; Complete Time: 14:20 [facility] 04/06 13:11 Order name: Labs collected and sent; Complete Time: 14:20 04/06 13:11 Order name: O2 Per Protocol; Complete Time: 14:20 04/06 13:11 Order name: O2 Sat Monitoring; Complete Time: 14:20 04/06 14:49 Order name: CT Chest For PE Angio 04/06 15:28 Order name: [facility] EC:54 Rate is 66 beats/min. Rhythm is regular, Sinus arrythmia. QRS [place] is Normal. NE tw4 interval is normal. QRS interval is normal. QT interval is normal. T waves are Normal. No ST changes noted. Clinical impression: Normal ECG. Interpreted by me. Reviewed by me. Administered Medications: 14:55 Drug: TORadol 30 mg Route: IVP; Site: right antecubital; rv 15:57 Follow up: Response: Pain is decreased rv 15:45 Drug: DuoNeb (3:1) (2.5 mg - 0.5 mg) 3 ml Route: Nebulizer; rv 16:12 Follow up: Response: Marked relief of symptoms rv Disposition: 04/06/19 19:18 Discharged to Home. Impression: Acute bronchospasm, Chest pain, unspecified. - Condition is Stable. - Discharge Instructions: Bronchospasm, Adult, Nonspecific Chest Pain, Chest Wall Pain. - Prescriptions for Albuterol Sulfate 2.5 mg /3 mL (0.083 %) Inhalation Solution for Nebulization - inhale 1 unit by NEBULIZATION route every 8 hours As needed; 1 box. Medrol (Nagi) 4 mg Oral Tablets, Dose Pack - take 1 tablet by ORAL route as directed - follow package instructions; 1 packet. Albuterol Sulfate 90 mcg/actuation - inhale 1-2 puff by INHALATION route every 4-6 hours; 1 Inhaler. - Medication Reconciliation Form, Thank You Letter, Antibiotic Education, Prescription Opioid Use form. - Follow up: Private Physician; When: Upon discharge from the Emergency Department; Reason: Recheck today's complaints, Continuance of care. - Problem is new. - Symptoms have improved. Signatures: Dispatcher [employer] Sindhu Bello RN RN tw2 Alberto Alvarez MD MD tw4 Jose Webster RN RN rv Corrections: (The following items were deleted from the chart) 19:33 19:18 04/06/2019 19:18 Discharged to Home. Impression: Acute bronchospasm; Chest pain, rv unspecified. Condition is Stable. Forms are Medication Reconciliation Form, Thank You Letter, Antibiotic Education, Prescription Opioid Use. Follow up: Private Physician; When: Upon discharge from the Emergency Department; Reason: Recheck today's complaints, Continuance of care. Problem is new. Symptoms have improved. tw4
[2019-04-06 19:44] VITALS: TEMP 97.1
[2019-04-06 19:50] VITALS: BP 119/63; O2SAT 98
== END 2019-04-06 19:33 | disposition home or self-care (01) ==
LOC: ER 12:39
DX: J98.01 Acute bronchospasm (principal); R07.9 Chest pain, unspecified; Z85.841 Personal history of malignant neoplasm of brain
CPT/HCPCS: 93005; 87040 ×2; 85025; 80048; 36415; 83735; 82550; 85610; 85379; 80076; 85730; 84484 ×2; 82553; 83690; 83880; 71275; 71045; 94640; 96374; 99285; Q9967

== ENCOUNTER 2019-04-26 17:10 | Emergency (ER) | payer MEDICAID ==
--- OUTSIDE RECORDS SUMMARY | 2019-04-26 17:16 | XMS REPORT ---
:1960 Author Organization [facility] Address [address] [place] [address] [address]. [address] [place] [address] Care Team Providers Name Role Phone JACOBY MÁRQUEZ Unavailable Unavailable Problems This patient has no known problems. Allergies, Adverse Reactions, Alerts This patient has no known allergies or adverse reactions. Medications This patient has no known medications. Results Test Description Test Time Test Comments Text Results Atomic Results Result Comments TISSUE EXAM 2018-05-24 13:16:00 Surgical Pathology Report Case: [id number] Authorizing Provider: Robert Hightower MD Collected: 03/06/2018 1828 Ordering Location: [facility] Received: 03/07/2018 0900 SERVICES Pathologist: Blu Bowers MD Specimen: Tumor The following results were reported by [employer]. Please see attached reports.PD-L1 22C3 FDA analysis confirms HIGH EXPRESSIONBRAF gene rearrangement is NOT DETECTEDROS1 gene rearrangement is NOT DETECTEDALK gene rearrangement is NOT DETECTEDEGFR mutations in exons 18, 19, 20 T790M and other mutations, 21Addendum electronically signed by Blu Bowers MD on 05/24/2018 at 1:16 PMBRAIN, CEREBELLUM, CRANIOTOMY:METASTATIC ADENOCARCINOMA WITH FOCAL SQUAMOUS DIFFERENTIATION (SEE COMMENT) Signing Pathologist Direct Phone Line: [phone] signed by Blu Bowers MD on 03/19/2018 [...] tumor cells. Tumor is negative for p63. 52520; 38195; 07917 x 6Cancer of cerebellumTumor of craniumThe specimen [...] stains. Immunohistochemistry technical testing was performed at [facility], Pathology Laboratory where it was [...] developed and its performance characteristics determined by [facility], Pathology Laboratory. It has not been [...] (BEAKER) (test 174 mg/dL 70-110 TESTED AT [address] xmad=9891) [facility] [address] POCT-GLUCOSE [id number] 12:07:00 Test Item Value Reference Range Comments POC-GLUCOSE METER (BEAKER) 114 mg/dL 70-110 TESTED AT [address] (test yfdt=5126) [place] [id number] POCT-GLUCOSE [id number] 07:14:00 Test Item Value Reference Range Comments POC-GLUCOSE METER (BEAKER) 104 mg/dL 70-110 TESTED AT [address] (test mreq=9273) [place] [address] BASIC METABOLIC [id number] 05:46:00 Test Item Value Reference Range Comments SODIUM (BEAKER) (test 134 meq/L 136-145 fthz=488) POTASSIUM (BEAKER) (test 4.4 meq/L 3.5-5.1 xpqz=493) CHLORIDE (BEAKER) (test 103 meq/L 98-107 yeai=558) CO2 (BEAKER) (test 23 meq/L 22-29 nfyb=195) BLOOD UREA NITROGEN 19 mg/dL 7-21 (BEAKER) (test jixd=356) CREATININE (BEAKER) (test 0.60 mg/dL 0.57-1.25 cflg=881) GLUCOSE RANDOM (BEAKER) 103 mg/dL 70-105 (test xvyv=962) CALCIUM (BEAKER) (test 9.7 mg/dL 8.4-10.2 rlnu=836) EGFR (BEAKER) (test mL/min/1.73 sq m INSUFFICIENT CLINICAL DATA cvlg=1665) TO CALCULATE ESTIMATED GFR. CBC W/PLT COUNT & AUTO [id number] 05:20:00 Test Item Value Reference Range Comments WHITE BLOOD CELL COUNT (BEAKER) (test kdxe=709) 20.9 K/ L 3.5-10.5 RED BLOOD CELL COUNT (BEAKER) (test ogoa=171) 5.18 M/ L 3.93-5.22 HEMOGLOBIN (BEAKER) (test pchx=146) 12.9 GM/DL 11.2-15.7 HEMATOCRIT (BEAKER) (test qdcw=789) 41.8 % 34.1-44.9 MEAN CORPUSCULAR VOLUME (BEAKER) (test pbnj=840) 80.7 fL 79.4-94.8 MEAN CORPUSCULAR HEMOGLOBIN (BEAKER) (test 24.9 pg 25.6-32.2 kfwa=638) MEAN CORPUSCULAR HEMOGLOBIN CONC (BEAKER) (test 30.9 GM/DL 32.2-35.5 zwio=674) RED CELL DISTRIBUTION WIDTH (BEAKER) (test 15.7 % 11.7-14.4 spbz=968) PLATELET COUNT (BEAKER) (test ekgo=822) 485 K/CU MM 150-450 MEAN PLATELET VOLUME (BEAKER) (test suic=938) 9.1 fL 9.4-12.3 NUCLEATED RED BLOOD CELLS (BEAKER) (test 0 /100 WBC 0-0 hkit=606) NEUTROPHILS RELATIVE PERCENT (BEAKER) (test 82 % obua=698) LYMPHOCYTES RELATIVE PERCENT (BEAKER) (test 10 % uctk=211) MONOCYTES RELATIVE PERCENT (BEAKER) (test 6 % fual=734) EOSINOPHILS RELATIVE PERCENT (BEAKER) (test 1 % dshd=348) BASOPHILS RELATIVE PERCENT (BEAKER) (test 0 % rugh=119) NEUTROPHILS ABSOLUTE COUNT (BEAKER) (test 17.13 K/ L 1.56-6.13 cfiy=630) LYMPHOCYTES ABSOLUTE COUNT (BEAKER) (test 2.17 K/ L 1.18-3.74 qurm=368) MONOCYTES ABSOLUTE COUNT (BEAKER) (test 1.19 K/ L 0.24-0.36 hzvy=842) EOSINOPHILS ABSOLUTE COUNT (BEAKER) (test 0.17 K/ L 0.04-0.36 npqi=975) BASOPHILS ABSOLUTE COUNT (BEAKER) (test 0.03 K/ L 0.01-0.08 vutv=678) IMMATURE GRANULOCYTES-RELATIVE PERCENT (BEAKER) 1 % 0-1 (test gbzw=1144) POCT-GLUCOSE [id number] 21:30:00 Test Item Value Reference Range Comments POC-GLUCOSE METER (BEAKER) 111 mg/dL 70-110 TESTED AT [address] (test sodv=1231) [place] [address] POCT-GLUCOSE [id number] 18:19:00 Test Item Value Reference Range Comments POC-GLUCOSE METER (BEAKER) 175 mg/dL 70-110 TESTED AT [address] (test racd=1327) [place] [address] POCT-GLUCOSE [id number] 08:28:00 Test Item Value Reference Range Comments POC-GLUCOSE METER (BEAKER) 143 mg/dL 70-110 TESTED AT [address] (test bogb=5927) [place] [address] BASIC METABOLIC [id number] 06:32:00 Test Item Value Reference Range Comments SODIUM (BEAKER) (test 134 meq/L 136-145 fxtv=023) POTASSIUM (BEAKER) (test 4.8 meq/L 3.5-5.1 miys=591) CHLORIDE (BEAKER) (test 101 meq/L 98-107 afin=635) CO2 (BEAKER) (test 28 meq/L 22-29 dkfy=381) BLOOD UREA NITROGEN 23 mg/dL 7-21 (BEAKER) (test ubga=970) CREATININE (BEAKER) (test 0.66 mg/dL 0.57-1.25 mpqm=156) GLUCOSE RANDOM (BEAKER) 107 mg/dL 70-105 (test zjwo=492) CALCIUM (BEAKER) (test 9.3 mg/dL 8.4-10.2 wluj=016) EGFR (BEAKER) (test mL/min/1.73 sq m INSUFFICIENT CLINICAL DATA bflz=2694) TO CALCULATE ESTIMATED GFR. CBC W/PLT COUNT & AUTO [id number] 06:29:00 Test Item Value Reference Range Comments WHITE BLOOD CELL COUNT (BEAKER) (test tihm=918) 20.6 K/ L 3.5-10.5 RED BLOOD CELL COUNT (BEAKER) (test rmss=064) 4.79 M/ L 3.93-5.22 HEMOGLOBIN (BEAKER) (test dbct=410) 12.1 GM/DL 11.2-15.7 HEMATOCRIT (BEAKER) (test nadm=330) 38.4 % 34.1-44.9 MEAN CORPUSCULAR VOLUME (BEAKER) (test saxs=482) 80.2 fL 79.4-94.8 MEAN CORPUSCULAR HEMOGLOBIN (BEAKER) (test 25.3 pg 25.6-32.2 uphp=604) MEAN CORPUSCULAR HEMOGLOBIN CONC (BEAKER) (test 31.5 GM/DL 32.2-35.5 yhwb=033) RED CELL DISTRIBUTION WIDTH (BEAKER) (test 15.7 % 11.7-14.4 teke=848) PLATELET COUNT (BEAKER) (test twip=518) 415 K/CU MM 150-450 MEAN PLATELET VOLUME (BEAKER) (test gcls=316) 9.0 fL 9.4-12.3 NUCLEATED RED BLOOD CELLS (BEAKER) (test 0 /100 WBC 0-0 uiot=247) NEUTROPHILS RELATIVE PERCENT (BEAKER) (test 79 % ldsz=214) LYMPHOCYTES RELATIVE PERCENT (BEAKER) (test 11 % hxkp=375) MONOCYTES RELATIVE PERCENT (BEAKER) (test 7 % fhpx=968) EOSINOPHILS RELATIVE PERCENT (BEAKER) (test 2 % qaag=438) BASOPHILS RELATIVE PERCENT (BEAKER) (test 0 % tavw=389) NEUTROPHILS ABSOLUTE COUNT (BEAKER) (test 16.22 K/ L 1.56-6.13 auss=619) LYMPHOCYTES ABSOLUTE COUNT (BEAKER) (test 2.31 K/ L 1.18-3.74 kdqa=702) MONOCYTES ABSOLUTE COUNT (BEAKER) (test 1.46 K/ L 0.24-0.36 mgzq=031) EOSINOPHILS ABSOLUTE COUNT (BEAKER) (test 0.37 K/ L 0.04-0.36 smih=272) BASOPHILS ABSOLUTE COUNT (BEAKER) (test 0.03 K/ L 0.01-0.08 vgpy=240) IMMATURE GRANULOCYTES-RELATIVE PERCENT (BEAKER) 1 % 0-1 (test eqmo=9045) POCT-GLUCOSE [id number] 21:28:00 Test Item Value Reference Range Comments POC-GLUCOSE METER (BEAKER) 170 mg/dL 70-110 TESTED AT [address] (test zthf=3500) [place] [address] POCT-GLUCOSE [id number] 18:02:00 Test Item Value Reference Range Comments POC-GLUCOSE METER (BEAKER) 180 mg/dL 70-110 TESTED AT [address] (test jsoa=4891) [place] [id number] POCT-GLUCOSE [id number] 13:34:00 Test Item Value Reference Range Comments POC-GLUCOSE METER (BEAKER) 235 mg/dL 70-110 TESTED AT [address] (test mzox=3186) [facility] [address] MR, BRAIN, [id number] 12:29:00FINAL REPORT MRI Brain with and without [...] MDReport Verified Date/Time: 2017 12:29:16 Reading Location: [address] Neuro Reading Room CBC W/PLT COUNT & AUTO [id number] 07:59:00 Test Item Value Reference Range Comments WHITE BLOOD CELL COUNT (BEAKER) (test fgbs=944) 25.4 K/ L 3.5-10.5 RED BLOOD CELL COUNT (BEAKER) (test qvti=272) 4.74 M/ L 3.93-5.22 HEMOGLOBIN (BEAKER) (test gbem=085) 12.2 GM/DL 11.2-15.7 HEMATOCRIT (BEAKER) (test xeoo=711) 37.4 % 34.1-44.9 MEAN CORPUSCULAR VOLUME (BEAKER) (test uiaj=136) 78.9 fL 79.4-94.8 MEAN CORPUSCULAR HEMOGLOBIN (BEAKER) (test 25.7 pg 25.6-32.2 zend=748) MEAN CORPUSCULAR HEMOGLOBIN CONC (BEAKER) (test 32.6 GM/DL 32.2-35.5 oebp=963) RED CELL DISTRIBUTION WIDTH (BEAKER) (test 15.6 % 11.7-14.4 xyoe=950) PLATELET COUNT (BEAKER) (test czwv=237) 471 K/CU MM 150-450 MEAN PLATELET VOLUME (BEAKER) (test qneg=995) 9.1 fL 9.4-12.3 NUCLEATED RED BLOOD CELLS (BEAKER) (test 0 /100 WBC 0-0 sxsx=276) (CELLAVISION MANUAL DIFF)2018-03-08 07:59:00 Test Item Value Reference Range Comments NEUTROPHILS - REL (CELLAVISION)(BEAKER) (test 91 % vimw=2767) LYMPHOCYTES - REL (CELLAVISION)(BEAKER) (test 6 % ndfi=7786) MONOCYTES - REL (CELLAVISION)(BEAKER) (test 1 % mdas=9896) BANDS - REL (CELLAVISION)(BEAKER) (test 2 % 0-10 dakp=9177) NEUTROPHILS - ABS (CELLAVISION)(BEAKER) (test 23.11 K/ul 1.56-6.13 vqjl=1065) LYMPHOCYTES - ABS (CELLAVISION)(BEAKER) (test 1.52 K/ul 1.18-3.74 dbog=4918) MONOCYTES - ABS (CELLAVISION)(BEAKER) (test 0.25 K/uL 0.24-0.36 drwi=6007) BANDS - ABS (CELLAVISION)(BEAKER) (test 0.51 K/uL 0.00-0.80 wxge=2000) TOTAL COUNTED (BEAKER) (test hdai=3430) 100 WBC MORPHOLOGY (BEAKER) (test xcqh=249) Normal PLT MORPHOLOGY (BEAKER) (test mzvu=970) Normal POLYCHROMATOPHILLIC RBCS(BEAKER) (test omej=230) 3+ many ANISOCYTOSIS (BEAKER) (test omym=373) 2+ moderate MICROCYTES (BEAKER) (test cknn=924) 1+ few ARTIFACT (CELLAVISION)(BEAKER) (test lrax=9099) Present PLATELET CONCENTRATION (CELLAVISION)(BEAKER) Increased (test zaic=1932) Received comment: User comments: Slide comments:BASIC METABOLIC [id number] 04:18:00 Test Item Value Reference Range Comments SODIUM (BEAKER) (test 133 meq/L 136-145 nvwv=403) POTASSIUM (BEAKER) (test 4.3 meq/L 3.5-5.1 jbwk=814) CHLORIDE (BEAKER) (test 101 meq/L 98-107 euhg=906) CO2 (BEAKER) (test 25 meq/L 22-29 uyvy=113) BLOOD UREA NITROGEN 17 mg/dL 7-21 (BEAKER) (test alac=806) CREATININE (BEAKER) (test 0.65 mg/dL 0.57-1.25 paqg=144) GLUCOSE RANDOM (BEAKER) 121 mg/dL 70-105 (test mozr=770) CALCIUM (BEAKER) (test 9.2 mg/dL 8.4-10.2 ifil=283) EGFR (BEAKER) (test mL/min/1.73 sq m INSUFFICIENT CLINICAL DATA bltl=0985) TO CALCULATE ESTIMATED GFR. POCT-GLUCOSE [id number] 23:21:00 Test Item Value Reference Range Comments POC-GLUCOSE METER (BEAKER) 122 mg/dL 70-110 TESTED AT [address] (test shmc=0633) [place] [address] POCT-GLUCOSE [id number] 22:02:00 Test Item Value Reference Range Comments POC-GLUCOSE METER (BEAKER) 122 mg/dL 70-110 TESTED AT [address] (test ivxi=7152) [place] [address] POCT-GLUCOSE [id number] 18:27:00 Test Item Value Reference Range Comments POC-GLUCOSE METER (BEAKER) 120 mg/dL 70-110 TESTED AT [address] (test irgd=4090) [place] [id number] POCT-GLUCOSE [id number] 12:26:00 Test Item Value Reference Range Comments POC-GLUCOSE METER (BEAKER) 130 mg/dL 70-110 TESTED AT [address] (test aiqe=3966) [place] [address] POCT-GLUCOSE [id number] 08:44:00 Test Item Value Reference Range Comments POC-GLUCOSE METER (BEAKER) 141 mg/dL 70-110 TESTED AT [address] (test flob=3320) [place] [address] CBC W/PLT COUNT & AUTO [id number] 07:37:00 Test Item Value Reference Range Comments WHITE BLOOD CELL COUNT (BEAKER) (test enhk=194) 27.9 K/ L 3.5-10.5 RED BLOOD CELL COUNT (BEAKER) (test djmc=712) 4.44 M/ L 3.93-5.22 HEMOGLOBIN (BEAKER) (test rvmf=473) 11.3 GM/DL 11.2-15.7 HEMATOCRIT (BEAKER) (test uudv=853) 35.2 % 34.1-44.9 MEAN CORPUSCULAR VOLUME (BEAKER) (test nmru=941) 79.3 fL 79.4-94.8 MEAN CORPUSCULAR HEMOGLOBIN (BEAKER) (test 25.5 pg 25.6-32.2 fjud=243) MEAN CORPUSCULAR HEMOGLOBIN CONC (BEAKER) (test 32.1 GM/DL 32.2-35.5 zsot=818) RED CELL DISTRIBUTION WIDTH (BEAKER) (test 15.2 % 11.7-14.4 putr=934) PLATELET COUNT (BEAKER) (test clgh=383) 491 K/CU MM 150-450 MEAN PLATELET VOLUME (BEAKER) (test ycwj=952) 9.0 fL 9.4-12.3 NUCLEATED RED BLOOD CELLS (BEAKER) (test 0 /100 WBC 0-0 ddjr=863) (CELLAVISION MANUAL DIFF)2018-03-07 07:37:00 Test Item Value Reference Range Comments NEUTROPHILS - REL (CELLAVISION)(BEAKER) (test 91 % sybm=9405) LYMPHOCYTES - REL (CELLAVISION)(BEAKER) (test 3 % azyy=9025) MONOCYTES - REL (CELLAVISION)(BEAKER) (test 5 % xtci=9866) ATYPICAL LYMPHOCYTES - REL (CELLAVISION)(BEAKER) 1 % 0-0 (test birc=9276) NEUTROPHILS - ABS (CELLAVISION)(BEAKER) (test 25.39 K/ul 1.56-6.13 zgds=9645) LYMPHOCYTES - ABS (CELLAVISION)(BEAKER) (test 0.84 K/ul 1.18-3.74 noap=6133) MONOCYTES - ABS (CELLAVISION)(BEAKER) (test 1.40 K/uL 0.24-0.36 cmhu=9816) ATYPICAL LYMPHOCYTES - ABS (CELLAVISION)(BEAKER) 0.28 K/uL 0.00-0.00 (test gsnh=5631) TOTAL COUNTED (BEAKER) (test dilf=7444) 100 WBC MORPHOLOGY (BEAKER) (test ifxv=108) Normal LARGE PLT(BEAKER) (test yekn=4554) Present POLYCHROMATOPHILLIC RBCS(BEAKER) (test ryjt=343) 1+ few ARTIFACT (CELLAVISION)(BEAKER) (test yjvq=9850) Present PLATELET CONCENTRATION (CELLAVISION)(BEAKER) Increased (test zjpa=6989) Received comment: User comments: Slide comments:BASIC METABOLIC [id number] 04:29:00 Test Item Value Reference Range Comments SODIUM (BEAKER) (test 134 meq/L 136-145 yvkg=733) POTASSIUM (BEAKER) (test 4.3 meq/L 3.5-5.1 gwik=174) CHLORIDE (BEAKER) (test 104 meq/L 98-107 jzgi=916) CO2 (BEAKER) (test 23 meq/L 22-29 mvok=273) BLOOD UREA NITROGEN 18 mg/dL 7-21 (BEAKER) (test bvze=131) CREATININE (BEAKER) (test 0.63 mg/dL 0.57-1.25 wuoe=356) GLUCOSE RANDOM (BEAKER) 145 mg/dL 70-105 (test ixta=588) CALCIUM (BEAKER) (test 8.8 mg/dL 8.4-10.2 flac=681) EGFR (BEAKER) (test mL/min/1.73 sq m INSUFFICIENT CLINICAL DATA xdrp=2637) TO CALCULATE ESTIMATED GFR. [id number] 04:28:00 Test Item Value Reference Range Comments PHOSPHORUS (BEAKER) (test iiol=088) 3.4 mg/dL 2.3-4.7 [id number] 04:28:00 Test Item Value Reference Range Comments MAGNESIUM (BEAKER) (test vvph=384) 1.9 mg/dL 1.6-2.6 POCT-GLUCOSE [id number] 22:29:00 Test Item Value Reference Range Comments POC-GLUCOSE METER (BEAKER) 147 mg/dL 70-110 TESTED AT [facility] [address] [facility] (test aaob=3607) [facility] [address] POCT-GLUCOSE [id number] 12:29:00 Test Item Value Reference Range Comments POC-GLUCOSE METER (BEAKER) 87 mg/dL 70-110 TESTED AT [facility] [address] [facility] (test fbkn=9047) [facility] [address] POCT-GLUCOSE [id number] 08:21:00 Test Item Value Reference Range Comments POC-GLUCOSE METER (BEAKER) 122 mg/dL 70-110 TESTED AT [address] (test jkuh=4089) [place] [address] [id number] 05:32:00 Test Item Value Reference Range Comments PROTIME (BEAKER) (test ylus=991) 13.1 seconds 11.7-14.7 INR (BEAKER) (test qveu=744) 1.0 <=5.9 PARTIAL THROMBOPLASTIN TIME (BEAKER) (test 24.2 seconds 22.5-36.0 ycjn=529) RECOMMENDED COUMADIN/WARFARIN INR THERAPY RANGESSTANDARD DOSE: 2.0 - 3.0 Includes: PROPHYLAXIS forvenous thrombosis, systemic embolization; TREATMENT for venous thrombosis and/or pulmonary embolus.HIGH RISK: Target INR is 2.5-3.5 for patients with mechanical heart valves.POCT-GLUCOSE [id number] 05:17:00 Test Item Value Reference Range Comments POC-GLUCOSE METER (BEAKER) 127 mg/dL 70-110 TESTED AT [address] (test yyty=3611) [place] [id number] BASIC METABOLIC [id number] 05:16:00 Test Item Value Reference Range Comments SODIUM (BEAKER) (test 135 meq/L 136-145 dmgo=824) POTASSIUM (BEAKER) (test 4.1 meq/L 3.5-5.1 omcp=543) CHLORIDE (BEAKER) (test 103 meq/L 98-107 zchd=940) CO2 (BEAKER) (test 22 meq/L 22-29 jmzl=833) BLOOD UREA NITROGEN 19 mg/dL 7-21 (BEAKER) (test rrpb=561) CREATININE (BEAKER) (test 0.69 mg/dL 0.57-1.25 uqxc=707) GLUCOSE RANDOM (BEAKER) 131 mg/dL 70-105 (test xopj=443) CALCIUM (BEAKER) (test 9.3 mg/dL 8.4-10.2 bzhk=803) EGFR (BEAKER) (test mL/min/1.73 sq m INSUFFICIENT CLINICAL DATA stqs=0203) TO CALCULATE ESTIMATED GFR. CBC W/PLT COUNT & AUTO [id number] 04:56:00 Test Item Value Reference Range Comments WHITE BLOOD CELL COUNT (BEAKER) (test oghw=261) 22.3 K/ L 3.5-10.5 RED BLOOD CELL COUNT (BEAKER) (test ekft=968) 4.71 M/ L 3.93-5.22 HEMOGLOBIN (BEAKER) (test fldt=578) 11.7 GM/DL 11.2-15.7 HEMATOCRIT (BEAKER) (test vqbn=098) 37.1 % 34.1-44.9 MEAN CORPUSCULAR VOLUME (BEAKER) (test swwz=598) 78.8 fL 79.4-94.8 MEAN CORPUSCULAR HEMOGLOBIN (BEAKER) (test 24.8 pg 25.6-32.2 dmbo=275) MEAN CORPUSCULAR HEMOGLOBIN CONC (BEAKER) (test 31.5 GM/DL 32.2-35.5 xjwc=924) RED CELL DISTRIBUTION WIDTH (BEAKER) (test 15.0 % 11.7-14.4 jahm=308) PLATELET COUNT (BEAKER) (test laos=797) 529 K/CU MM 150-450 MEAN PLATELET VOLUME (BEAKER) (test uchu=711) 8.9 fL 9.4-12.3 NUCLEATED RED BLOOD CELLS (BEAKER) (test 0 /100 WBC 0-0 ilif=350) NEUTROPHILS RELATIVE PERCENT (BEAKER) (test 84 % uufq=603) LYMPHOCYTES RELATIVE PERCENT (BEAKER) (test 9 % qjog=917) MONOCYTES RELATIVE PERCENT (BEAKER) (test 4 % gsuo=757) EOSINOPHILS RELATIVE PERCENT (BEAKER) (test 1 % gbgf=098) BASOPHILS RELATIVE PERCENT (BEAKER) (test 0 % cbfu=447) NEUTROPHILS ABSOLUTE COUNT (BEAKER) (test 18.70 K/ L 1.56-6.13 csxf=456) LYMPHOCYTES ABSOLUTE COUNT (BEAKER) (test 2.04 K/ L 1.18-3.74 qqon=824) MONOCYTES ABSOLUTE COUNT (BEAKER) (test 0.99 K/ L 0.24-0.36 qdjx=100) EOSINOPHILS ABSOLUTE COUNT (BEAKER) (test 0.12 K/ L 0.04-0.36 uqlj=864) BASOPHILS ABSOLUTE COUNT (BEAKER) (test 0.05 K/ L 0.01-0.08 pzng=022) IMMATURE GRANULOCYTES-RELATIVE PERCENT (BEAKER) 2 % 0-1 (test rout=3650) POCT-GLUCOSE [id number] 22:07:00 Test Item Value Reference Range Comments POC-GLUCOSE METER (BEAKER) 157 mg/dL 70-110 TESTED AT [facility] [address] [facility] (test xlud=8525) [facility] [address] POCT-GLUCOSE [id number] 16:55:00 Test Item Value Reference Range Comments POC-GLUCOSE METER (BEAKER) 146 mg/dL 70-110 TESTED AT [facility] [address] [facility] (test txpx=5199) [facility] [address] TISSUE [id number] 15:23:00Surgical Pathology Report Case: [id number] Authorizing Provider: Robert Tirado MD Collected: 03/04/2018916 Ordering Location: [facility] Received: 03/04/2018920 SERVICES Pathologist: Terry Stanford [...] 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 Right upper lobe endobronchial biopsy. B. Right [...] stains. BLOCK B1- TTF1, NAPSIN A, ER, FWX2Imqeyqmnwmzwrintrklm technical testing was performed at [facility], Pathology Laboratory where it was [...] complexity clinical laboratory testing.FINE NEEDLE ASPIRATE BY [id number] 12 :41:00Medical Cytology Report Case: [id number] Authorizing Provider: Robert Tirado MD Collected: 03/04/2018 1023 Ordering Location: [address] Received: 03/04/2018 1244 Service Pathologist: Ben Vila MD Specimen: Lymph Node, Interlobar, Right, Station 11R LYMPH NODE, INTERLOBAR RIGHT, STATION 11R EBUS FNA BY CLINICIAN (CYTOSPINS OF ASPIRATE): - NEGATIVE FOR MALIGNANCY - LYMPHOCYTES PRESENT Signing Pathologist Direct Phone Line: [phone] signed by Ben Vila MD on 2017 at 12:41 PMPlease also see surgical pathology report [id number] and cytopathology reports [id number], 3646, 3647 and 3648. [id number] massLYMPH NODE, INTERLOBAR RIGHT, STATION 11R EBUS FNA40 mls in cytorich red; 2 cytospinsCollected: [id number]: [id number] interpretation of this case included the use of immunohistochemistry or special stains. Immunohistochemistry technical testing was performed at [facility], Pathology Laboratory where it was [...] certified under the Clinical Laboratory Improvement Amendments nv0225 (CLIA-88) as qualified to perform high complexity clinical laboratory testing.[facility], Department of Pathology, [address] [place] [id number], [facility]bcymoF[facility], [facility] of [facility] , [address] [place] [id number], QhfivyFountain [facility], Department of Pathology, [address] [place] [id number] , WLCI NEEDLE ASPIRATE BY [id number] 12:40:00Medical Cytology Report Case: [id number] Authorizing Provider: Robert Tirado MD Collected: 03/04/2018 1008 Ordering Location: [address] Received: 03/04/2018 1244 Service Pathologist: Ben Vila MD Specimen: Lymph Node, Lower Paratracheal, Right, Station 4R LYMPH NODE, LOWER PARATRACHEAL, RIGHT, STATION 4R EBUS FNA BY CLINICIAN (CYTOSPINS AND CELL BLOCK OF ASPIRATE): - NEGATIVE FOR MALIGNANCY Signing Pathologist Direct Phone Line: Smears and cell block show good sampling of anthracotic lymph node without granuloma or neoplasm.Please also see surgical pathology report [id number] and cytopathology reports [id number], 3646, 3647 and 3649. [id number], [id number] massLYMPH NODE, LOWER PARATRACHEAL, RIGHT, STATION 4R EBUS FNA40 mls in cytorich red; 2 cytospins, cell blockCollected: [id number]: [id number] interpretation of this case included the use of immunohistochemistry or special stains. Immunohistochemistry technical testing was performed at [facility], Pathology Laboratory where it was [...] qualified to perform high complexity clinical laboratory testing.[facility], Department of Pathology, [address] [place] [address], [facility], [facility], [address] [place] [address], FhapbwFountain [facility], Department of Pathology, [address] [place] [address], PQGK NEEDLE ASPIRATE BY [id number] 12:38: 00Medical Cytology Report Case: [id number] Authorizing Provider: Robert Tirado MD Collected : 03/04/2018 1002 Ordering Location: [address] Received: 03/04/2018 1244 Service Pathologist: Ben Vila MD Specimen: Lymph Node, Subcarinal, Station 7 LYMPH NODE, SUBCARINAL, STATION 7 EBUS FNA BY CLINICIAN (CYTOSPINS AND CELL BLOCK OF ASPIRATE): - NEGATIVE FOR MALIGNANCY Signing Pathologist Direct Phone Line: Smears and cell block show good sampling of anthracotic lymph nodewithout granuloma or neoplasm.Please also see surgical pathology report [id number] and cytopathology reports [id number], 3646, 3648 and 3649. [id number], [id number] massLYMPH NODE, SUBCARINAL, STATION 7 FNAPrepared cell block(A2) and 2 cytospins from 40 ml cytorich red fixative specimen Collected: [id number]: [id number] interpretation of this case included the use of immunohistochemistry or special stains.Immunohistochemistry technical testing was performed at [facility], Pathology Laboratory where it was developed and [...] qualified to perform high complexity clinical laboratory testing.[facility], Department of Pathology, [address] [place] [address], WnllzkFountain [facility], Department of Pathology, [address] [place] [address], Tel KFountain Valley [facility], Department of Pathology, [address] [place] [address], YUTE NEEDLE ASPIRATE BY [id number]- 05 12:35:00Medical Cytology Report Case: [id number] Authorizing Provider: Robert Tirado MD Collected: 03/04/2018 1001 Ordering Location: [address] Received: 03/04/2018 1244 Service Pathologist: Ben Vila MD Specimen: Lymph Node, Lower Paratracheal , Left, Station 4L LYMPH NODE, LOWER PARATRACHEAL, LEFT, STATION 4L, FNA BY CLINICIAN (CYTOSPINS OF ASPIRATE): - NEGATIVE FOR MALIGNANCY PREDOMINANTLY BRONCHIAL EPITHELIAL CELLS Signing Pathologist Direct Phone Line: [phone] signed by Ben Vila MD on 03/05/2018 at 12:35 PMPlease also see surgical pathology report [id number] and cytopathology reports [id number], 3647, 3648 and 3649. [id number] massLYMPH NODE, LOWER PARATRACHEAL, LEFT, STATION 4L FNAPrepared 2 cytospins from 40 ml cytorich red fixative sampleCollected: [id number]: [id number] interpretation of this case included the use of immunohistochemistry or special stains. Immunohistochemistry technical testing was performed at [facility], Pathology Laboratory where it was [...] qualified to perform high complexity clinical laboratory testing.[facility], Department of Pathology, [address] [place] [address], [facility], [facility] of [facility], [address] [place] [address], Tel IFountain [facility], Department of Pathology, [address] [place] [address], IRFC-GLUCOSE [id number] 12:34:00 Test Item Value Reference Range Comments POC-GLUCOSE METER (BEAKER) 119 mg/dL 70-110 TESTED AT [address] (test ygwj=9725) [facility] [address] FINE NEEDLE ASPIRATE BY [id number] 12:34:00Medical Cytology Report Case: [id number] Authorizing Provider: Robert Tirado MD Collected: 03/04/2018 1001 Ordering Location: [address] Received: 1244 Service Pathologist: Ben Vila MD Specimen: Lymph Node, Interlobar, Left, Station 11L LYMPH NODE, INTERLOBAR, LEFT, STATION 11L, FNA BY CLINICIAN ( CYTOSPINS AND CELL BLOCK OF ASPIRATE): - NEGATIVE FOR MALIGNANCY Signing Pathologist Direct Phone Line: [phone] signed by Ben Vila MD on 03/05/2018 at 12:34 PMSmears and cell block show good sampling of anthracotic lymph node without granuloma or neoplasm.Please also see surgical pathology report [id number] and cytopathology reports [id number], 3647 , 3648 and 3649. [address], 67745Ugdj massLYMPH NODE, INTERLOBAR, LEFT, [id number] FNAPrepared cell block(A2) and 2 cytospins from 45 ml cytorich red fixative sampleCollected: [id number]: [id number] interpretation of this case included the use of immunohistochemistry or special stains. Immunohistochemistry technical testing was performed at [facility], Pathology Laboratory where it was [...] qualified to perform high complexity clinical laboratory testing.[facility], Department of Pathology, [address] [place] [address], Tel [facility], [facility] of Pathology, [address] [place] [address], HehwsbF[facility], Department of Pathology, [address] [place] [address], Tel [id number]-MHGHRHX [id number] 08:25:00 Test Item Value Reference Range Comments POC-GLUCOSE METER (BEAKER) 114 mg/dL 70-110 TESTED AT [address] (test jwya=4082) [facility] [address] BASIC METABOLIC [id number] 05:45:00 Test Item Value Reference Range Comments SODIUM (BEAKER) (test 136 meq/L 136-145 rdah=881) POTASSIUM (BEAKER) (test 4.5 meq/L 3.5-5.1 Specimen slightly joou=733) hemolyzed CHLORIDE (BEAKER) (test 104 meq/L 98-107 gyaw=894) CO2 (BEAKER) (test 24 meq/L 22-29 huqx=520) BLOOD UREA NITROGEN 18 mg/dL 7-21 (BEAKER) (test aibp=833) CREATININE (BEAKER) (test 0.72 mg/dL 0.57-1.25 Specimen slightly ziir=784) hemolyzed GLUCOSE RANDOM (BEAKER) 126 mg/dL 70-105 (test sezv=537) CALCIUM (BEAKER) (test 9.8 mg/dL 8.4-10.2 diac=237) EGFR (BEAKER) (test mL/min/1.73 sq m INSUFFICIENT CLINICAL DATA pbro=2397) TO CALCULATE ESTIMATED GFR. CBC W/PLT COUNT & AUTO [id number] 05:42:00 Test Item Value Reference Range Comments WHITE BLOOD CELL COUNT (BEAKER) (test uuuj=749) 22.5 K/ L 3.5-10.5 RED BLOOD CELL COUNT (BEAKER) (test lboo=679) 5.03 M/ L 3.93-5.22 HEMOGLOBIN (BEAKER) (test mlbe=811) 12.6 GM/DL 11.2-15.7 HEMATOCRIT (BEAKER) (test wwpz=362) 40.7 % 34.1-44.9 MEAN CORPUSCULAR VOLUME (BEAKER) (test nhov=587) 80.9 fL 79.4-94.8 MEAN CORPUSCULAR HEMOGLOBIN (BEAKER) (test 25.0 pg 25.6-32.2 xlyy=841) MEAN CORPUSCULAR HEMOGLOBIN CONC (BEAKER) (test 31.0 GM/DL 32.2-35.5 oqza=021) RED CELL DISTRIBUTION WIDTH (BEAKER) (test 15.0 % 11.7-14.4 zmhj=647) PLATELET COUNT (BEAKER) (test wzki=837) 543 K/CU MM 150-450 MEAN PLATELET VOLUME (BEAKER) (test jvkf=008) 9.5 fL 9.4-12.3 NUCLEATED RED BLOOD CELLS (BEAKER) (test 0 /100 WBC 0-0 drrg=860) NEUTROPHILS RELATIVE PERCENT (BEAKER) (test 86 % pkep=749) LYMPHOCYTES RELATIVE PERCENT (BEAKER) (test 8 % ccbq=296) MONOCYTES RELATIVE PERCENT (BEAKER) (test 4 % znkg=540) EOSINOPHILS RELATIVE PERCENT (BEAKER) (test 0 % ysfj=575) BASOPHILS RELATIVE PERCENT (BEAKER) (test 0 % zkox=527) NEUTROPHILS ABSOLUTE COUNT (BEAKER) (test 19.38 K/ L 1.56-6.13 huqs=561) LYMPHOCYTES ABSOLUTE COUNT (BEAKER) (test 1.81 K/ L 1.18-3.74 zwjn=660) MONOCYTES ABSOLUTE COUNT (BEAKER) (test 0.99 K/ L 0.24-0.36 gfxp=294) EOSINOPHILS ABSOLUTE COUNT (BEAKER) (test 0.05 K/ L 0.04-0.36 bqxp=187) BASOPHILS ABSOLUTE COUNT (BEAKER) (test 0.04 K/ L 0.01-0.08 lkvn=578) IMMATURE GRANULOCYTES-RELATIVE PERCENT (BEAKER) 1 % 0-1 (test kgmc=1493) BLOOD [id number] 23:01:00 Test Item Value Reference Range Comments CULTURE (BEAKER) (test tbot=8537) No growth in 5 days POCT-GLUCOSE [id number] 20:32:00 Test Item Value Reference Range Comments POC-GLUCOSE METER (BEAKER) 122 mg/dL 70-110 TESTED AT [address] (test witq=5640) [place] [address] POCT-GLUCOSE [id number] 17:53:00 Test Item Value Reference Range Comments POC-GLUCOSE METER (BEAKER) 199 mg/dL 70-110 TESTED AT [address] (test iymd=0281) [place] [address] EBUS FNA [id number] 14:00:00 Test Item Value Reference Range Comments CYTOLOGY RESULT POINTER (BEAKER) (test See Separate Report xslr=8059) EBUS FNA [id number] 14:00:00 Test Item Value Reference Range Comments CYTOLOGY RESULT POINTER (BEAKER) (test See Separate Report kzba=4804) EBUS FNA [id number] 14:00:00 Test Item Value Reference Range Comments CYTOLOGY RESULT POINTER (BEAKER) (test See Separate Report uljn=9100) EBUS FNA [id number] 14:00:00 Test Item Value Reference Range Comments CYTOLOGY RESULT POINTER (BEAKER) (test See Separate Report zbnj=1052) EBUS FNA [id number] 14:00:00 Test Item Value Reference Range Comments CYTOLOGY RESULT POINTER (BEAKER) (test See Separate Report tatp=8791) POCT-GLUCOSE [id number] 12:06:00 Test Item Value Reference Range Comments POC-GLUCOSE METER (BEAKER) 114 mg/dL 70-110 TESTED AT [address] (test oepw=4242) [place] [address] BLOOD [id number] 10:00:00 Test Item Value Reference Range Comments CULTURE (BEAKER) (test xzsu=7939) No growth in 5 days POCT-GLUCOSE [id number] 08:22:00 Test Item Value Reference Range Comments POC-GLUCOSE METER (BEAKER) 120 mg/dL 70-110 TESTED AT [address] (test tuxk=8007) [place] [address] [id number] 06:39:00 Test Item Value Reference Range Comments PARTIAL THROMBOPLASTIN TIME (BEAKER) (test 25.2 seconds 22.5-36.0 nagu=555) PROTHROMBIN [id number] 06:38:00 Test Item Value Reference Range Comments PROTIME (BEAKER) (test mzvj=985) 13.6 seconds 11.7-14.7 INR (BEAKER) (test snav=374) 1.0 <=5.9 RECOMMENDED COUMADIN/WARFARIN INR THERAPY RANGESSTANDARD DOSE: 2.0 - 3.0 Includes: PROPHYLAXIS forvenous thrombosis, systemic embolization; TREATMENT for venous thrombosis and/or pulmonary embolus.HIGH RISK: Target INR is 2.5-3.5 for patients with mechanical heart valves.BASIC METABOLIC [id number] 06:38: 00 Test Item Value Reference Range Comments SODIUM (BEAKER) (test 136 meq/L 136-145 fitv=110) POTASSIUM (BEAKER) (test 4.4 meq/L 3.5-5.1 jtzv=559) CHLORIDE (BEAKER) (test 105 meq/L 98-107 durg=433) CO2 (BEAKER) (test 23 meq/L 22-29 bdtf=520) BLOOD UREA NITROGEN 19 mg/dL 7-21 (BEAKER) (test okfj=864) CREATININE (BEAKER) (test 0.66 mg/dL 0.57-1.25 nwop=983) GLUCOSE RANDOM (BEAKER) 120 mg/dL 70-105 (test aabp=279) CALCIUM (BEAKER) (test 9.9 mg/dL 8.4-10.2 uqkv=779) EGFR (BEAKER) (test mL/min/1.73 sq m INSUFFICIENT CLINICAL DATA zkis=7640) TO CALCULATE ESTIMATED GFR. CBC W/PLT COUNT & AUTO [id number] 06:19:00 Test Item Value Reference Range Comments WHITE BLOOD CELL COUNT (BEAKER) (test vxyt=104) 22.5 K/ L 3.5-10.5 RED BLOOD CELL COUNT (BEAKER) (test ydoh=490) 4.92 M/ L 3.93-5.22 HEMOGLOBIN (BEAKER) (test mqvr=536) 12.4 GM/DL 11.2-15.7 HEMATOCRIT (BEAKER) (test ameh=888) 39.7 % 34.1-44.9 MEAN CORPUSCULAR VOLUME (BEAKER) (test xjse=074) 80.7 fL 79.4-94.8 MEAN CORPUSCULAR HEMOGLOBIN (BEAKER) (test 25.2 pg 25.6-32.2 xvyt=357) MEAN CORPUSCULAR HEMOGLOBIN CONC (BEAKER) (test 31.2 GM/DL 32.2-35.5 mueg=010) RED CELL DISTRIBUTION WIDTH (BEAKER) (test 14.6 % 11.7-14.4 gbot=781) PLATELET COUNT (BEAKER) (test wnwh=473) 570 K/CU MM 150-450 MEAN PLATELET VOLUME (BEAKER) (test vmzw=704) 9.0 fL 9.4-12.3 NUCLEATED RED BLOOD CELLS (BEAKER) (test 0 /100 WBC 0-0 sspl=727) NEUTROPHILS RELATIVE PERCENT (BEAKER) (test 83 % qqie=606) LYMPHOCYTES RELATIVE PERCENT (BEAKER) (test 11 % reuk=187) MONOCYTES RELATIVE PERCENT (BEAKER) (test 5 % qyce=940) EOSINOPHILS RELATIVE PERCENT (BEAKER) (test 0 % xmwg=883) BASOPHILS RELATIVE PERCENT (BEAKER) (test 0 % kuob=922) NEUTROPHILS ABSOLUTE COUNT (BEAKER) (test 18.65 K/ L 1.56-6.13 xryq=591) LYMPHOCYTES ABSOLUTE COUNT (BEAKER) (test 2.36 K/ L 1.18-3.74 peox=559) MONOCYTES ABSOLUTE COUNT (BEAKER) (test 1.01 K/ L 0.24-0.36 giuh=232) EOSINOPHILS ABSOLUTE COUNT (BEAKER) (test 0.09 K/ L 0.04-0.36 nwst=718) BASOPHILS ABSOLUTE COUNT (BEAKER) (test 0.07 K/ L 0.01-0.08 tlob=401) IMMATURE GRANULOCYTES-RELATIVE PERCENT (BEAKER) 2 % 0-1 (test uiwr=4336) POCT-GLUCOSE [id number] 22:29:00 Test Item Value Reference Range Comments POC-GLUCOSE METER (BEAKER) 175 mg/dL 70-110 TESTED AT [place] [id number] [facility] (test vaqd=0777) [facility] [address] BONE AND/OR JOINT IMAGING, WHOLE [id number] 15:34:00No histologic dx yet, but brain met with lung mass.FINAL REPORT PROCEDURE: BONE SCAN, WHOLE BODY CPT CODE: 59608 INDICATION: Right lung cancer with cerebellar metastasis [...] Verified Date/Time: 03/03/2018 15:34: 30 Reading Location: [address] Reading Room POCT-GLUCOSE [id number] 11:44:00 Test Item Value Reference Range Comments POC-GLUCOSE METER (BEAKER) 180 mg/dL 70-110 TESTED AT [address] (test kbhu=5054) [facility] [address] POCT-GLUCOSE [id number] 08:31:00 Test Item Value Reference Range Comments POC-GLUCOSE METER (BEAKER) 111 mg/dL 70-110 TESTED AT [address] (test rvxh=2157) [facility] [address] CBC W/PLT COUNT & AUTO [id number] 05:37:00 Test Item Value Reference Range Comments WHITE BLOOD CELL COUNT (BEAKER) (test dngu=934) 18.9 K/ L 3.5-10.5 RED BLOOD CELL COUNT (BEAKER) (test ecbq=860) 4.58 M/ L 3.93-5.22 HEMOGLOBIN (BEAKER) (test eoja=527) 11.6 GM/DL 11.2-15.7 HEMATOCRIT (BEAKER) (test ermc=049) 36.7 % 34.1-44.9 MEAN CORPUSCULAR VOLUME (BEAKER) (test wxmj=583) 80.1 fL 79.4-94.8 MEAN CORPUSCULAR HEMOGLOBIN (BEAKER) (test 25.3 pg 25.6-32.2 krss=399) MEAN CORPUSCULAR HEMOGLOBIN CONC (BEAKER) (test 31.6 GM/DL 32.2-35.5 sfqb=669) RED CELL DISTRIBUTION WIDTH (BEAKER) (test 14.4 % 11.7-14.4 gqxz=442) PLATELET COUNT (BEAKER) (test smxi=950) 505 K/CU MM 150-450 MEAN PLATELET VOLUME (BEAKER) (test apuj=110) 9.1 fL 9.4-12.3 NUCLEATED RED BLOOD CELLS (BEAKER) (test 0 /100 WBC 0-0 gktb=273) NEUTROPHILS RELATIVE PERCENT (BEAKER) (test 82 % ubfm=498) LYMPHOCYTES RELATIVE PERCENT (BEAKER) (test 11 % fahh=071) MONOCYTES RELATIVE PERCENT (BEAKER) (test 5 % bwzr=977) EOSINOPHILS RELATIVE PERCENT (BEAKER) (test 1 % qihm=983) BASOPHILS RELATIVE PERCENT (BEAKER) (test 0 % pnft=719) NEUTROPHILS ABSOLUTE COUNT (BEAKER) (test 15.57 K/ L 1.56-6.13 jrqa=471) LYMPHOCYTES ABSOLUTE COUNT (BEAKER) (test 2.05 K/ L 1.18-3.74 gfsv=558) MONOCYTES ABSOLUTE COUNT (BEAKER) (test 0.92 K/ L 0.24-0.36 qoue=202) EOSINOPHILS ABSOLUTE COUNT (BEAKER) (test 0.13 K/ L 0.04-0.36 blcm=498) BASOPHILS ABSOLUTE COUNT (BEAKER) (test 0.01 K/ L 0.01-0.08 jhbp=528) IMMATURE GRANULOCYTES-RELATIVE PERCENT (BEAKER) 1 % 0-1 (test lmdb=2385) POCT-GLUCOSE [id number] 21:27:00 Test Item Value Reference Range Comments POC-GLUCOSE METER (BEAKER) 202 mg/dL 70-110 TESTED AT [address] (test rlik=7898) [place] [address] POCT-GLUCOSE [id number] 13:34:00 Test Item Value Reference Range Comments POC-GLUCOSE METER (BEAKER) 94 mg/dL 70-110 TESTED AT [address] (test fvzz=8081) [place] [address] POCT-GLUCOSE [id number] 08:43:00 Test Item Value Reference Range Comments POC-GLUCOSE METER (BEAKER) 118 mg/dL 70-110 TESTED AT [address] (test gtzt=1971) [place] [address] URINALYSIS W/ REFLEX URINE [id number] 07:40:00 Test Item Value Reference Range Comments COLOR (BEAKER) (test njcx=970) Light Yellow CLARITY (BEAKER) (test lyen=832) Hazy SPECIFIC GRAVITY UA (BEAKER) (test qtvl=475) 1.019 1.001-1.035 PH UA (BEAKER) (test wapz=561) 7.0 5.0-8.0 PROTEIN UA (BEAKER) (test bfxs=696) Negative Negative GLUCOSE UA (BEAKER) (test zhks=078) Negative Negative KETONES UA (BEAKER) (test saqn=489) Negative Negative BILIRUBIN UA (BEAKER) (test gdmr=143) Negative Negative BLOOD UA (BEAKER) (test sxdg=483) Negative Negative NITRITE UA (BEAKER) (test habz=355) Negative Negative LEUKOCYTE ESTERASE UA (BEAKER) (test wxsu=251) Negative Negative UROBILINOGEN UA (BEAKER) (test fsip=282) 0.2 mg/dL 0.2-1.0 RBC UA (BEAKER) (test eycb=529) 2 /HPF WBC UA (BEAKER) (test nrzh=191) 0 /HPF MUCUS (BEAKER) (test ltvi=1313) Rare SQUAMOUS EPITHELIAL (BEAKER) (test gkxw=652) < /HPF SOURCE(BEAKER) (test ipci=3152) BASIC METABOLIC [id number] 07:17:00 Test Item Value Reference Range Comments SODIUM (BEAKER) (test 136 meq/L 136-145 rqlh=110) POTASSIUM (BEAKER) (test 4.1 meq/L 3.5-5.1 imur=382) CHLORIDE (BEAKER) (test 106 meq/L 98-107 dtqv=108) CO2 (BEAKER) (test 23 meq/L 22-29 vinh=741) BLOOD UREA NITROGEN 21 mg/dL 7-21 (BEAKER) (test mike=063) CREATININE (BEAKER) (test 0.76 mg/dL 0.57-1.25 ksqr=414) GLUCOSE RANDOM (BEAKER) 115 mg/dL 70-105 (test jdhr=285) CALCIUM (BEAKER) (test 9.7 mg/dL 8.4-10.2 hnic=199) EGFR (BEAKER) (test mL/min/1.73 sq m INSUFFICIENT CLINICAL DATA tqkw=2906) TO CALCULATE ESTIMATED GFR. CBC W/PLT COUNT & AUTO [id number] 06:15:00 Test Item Value Reference Range Comments WHITE BLOOD CELL COUNT (BEAKER) (test ekxu=202) 18.3 K/ L 3.5-10.5 RED BLOOD CELL COUNT (BEAKER) (test celj=848) 4.56 M/ L 3.93-5.22 HEMOGLOBIN (BEAKER) (test ezwx=809) 11.3 GM/DL 11.2-15.7 HEMATOCRIT (BEAKER) (test etkp=753) 36.2 % 34.1-44.9 MEAN CORPUSCULAR VOLUME (BEAKER) (test exjb=402) 79.4 fL 79.4-94.8 MEAN CORPUSCULAR HEMOGLOBIN (BEAKER) (test 24.8 pg 25.6-32.2 cqva=145) MEAN CORPUSCULAR HEMOGLOBIN CONC (BEAKER) (test 31.2 GM/DL 32.2-35.5 oucg=475) RED CELL DISTRIBUTION WIDTH (BEAKER) (test 14.5 % 11.7-14.4 qufw=463) PLATELET COUNT (BEAKER) (test ckqu=516) 529 K/CU MM 150-450 MEAN PLATELET VOLUME (BEAKER) (test mjij=334) 8.9 fL 9.4-12.3 NUCLEATED RED BLOOD CELLS (BEAKER) (test 0 /100 WBC 0-0 ddmo=405) NEUTROPHILS RELATIVE PERCENT (BEAKER) (test 85 % acrg=076) LYMPHOCYTES RELATIVE PERCENT (BEAKER) (test 9 % ksnc=818) MONOCYTES RELATIVE PERCENT (BEAKER) (test 5 % qimt=063) EOSINOPHILS RELATIVE PERCENT (BEAKER) (test 0 % oaqj=539) BASOPHILS RELATIVE PERCENT (BEAKER) (test 0 % lcsh=794) NEUTROPHILS ABSOLUTE COUNT (BEAKER) (test 15.60 K/ L 1.56-6.13 bcgh=946) LYMPHOCYTES ABSOLUTE COUNT (BEAKER) (test 1.67 K/ L 1.18-3.74 isll=732) MONOCYTES ABSOLUTE COUNT (BEAKER) (test 0.84 K/ L 0.24-0.36 giyv=030) EOSINOPHILS ABSOLUTE COUNT (BEAKER) (test 0.04 K/ L 0.04-0.36 tdcj=238) BASOPHILS ABSOLUTE COUNT (BEAKER) (test 0.03 K/ L 0.01-0.08 qryt=092) IMMATURE GRANULOCYTES-RELATIVE PERCENT (BEAKER) 1 % 0-1 (test guav=4902) POCT-GLUCOSE [id number] 21:08:00 Test Item Value Reference Range Comments POC-GLUCOSE METER (BEAKER) 175 mg/dL 70-110 TESTED AT [facility] [address] [facility] (test pnvq=0250) [facility] [address] POCT-GLUCOSE [id number] 17:48:00 Test Item Value Reference Range Comments POC-GLUCOSE METER (BEAKER) 114 mg/dL 70-110 TESTED AT [address] (test ybwz=9379) [facility] [address] POCT-GLUCOSE [id number] 12:27:00 Test Item Value Reference Range Comments POC-GLUCOSE METER (BEAKER) 119 mg/dL 70-110 TESTED AT [address] (test qtzt=7509) [facility] [address] BASIC METABOLIC [id number] 08:12:00 Test Item Value Reference Range Comments SODIUM (BEAKER) (test 136 meq/L 136-145 ywyt=774) POTASSIUM (BEAKER) (test 4.1 meq/L 3.5-5.1 eukh=443) CHLORIDE (BEAKER) (test 105 meq/L 98-107 etua=461) CO2 (BEAKER) (test 22 meq/L 22-29 xifl=766) BLOOD UREA NITROGEN 19 mg/dL 7-21 (BEAKER) (test fazu=089) CREATININE (BEAKER) (test 0.65 mg/dL 0.57-1.25 vhkn=855) GLUCOSE RANDOM (BEAKER) 110 mg/dL 70-105 (test byei=583) CALCIUM (BEAKER) (test 9.8 mg/dL 8.4-10.2 sepq=260) EGFR (BEAKER) (test mL/min/1.73 sq m INSUFFICIENT CLINICAL DATA ahax=5921) TO CALCULATE ESTIMATED GFR. CBC W/PLT COUNT & AUTO [id number] 07:21:00 Test Item Value Reference Range Comments WHITE BLOOD CELL COUNT (BEAKER) (test jpxv=767) 20.8 K/ L 3.5-10.5 RED BLOOD CELL COUNT (BEAKER) (test uvco=891) 4.46 M/ L 3.93-5.22 HEMOGLOBIN (BEAKER) (test twgm=044) 11.2 GM/DL 11.2-15.7 HEMATOCRIT (BEAKER) (test lglf=523) 35.1 % 34.1-44.9 MEAN CORPUSCULAR VOLUME (BEAKER) (test ofcs=075) 78.7 fL 79.4-94.8 MEAN CORPUSCULAR HEMOGLOBIN (BEAKER) (test 25.1 pg 25.6-32.2 siqb=307) MEAN CORPUSCULAR HEMOGLOBIN CONC (BEAKER) (test 31.9 GM/DL 32.2-35.5 zduj=644) RED CELL DISTRIBUTION WIDTH (BEAKER) (test 14.2 % 11.7-14.4 jydt=439) PLATELET COUNT (BEAKER) (test sjyx=951) 549 K/CU MM 150-450 MEAN PLATELET VOLUME (BEAKER) (test jxae=522) 9.0 fL 9.4-12.3 NUCLEATED RED BLOOD CELLS (BEAKER) (test 0 /100 WBC 0-0 jhww=833) NEUTROPHILS RELATIVE PERCENT (BEAKER) (test 86 % lmtv=013) LYMPHOCYTES RELATIVE PERCENT (BEAKER) (test 9 % xory=979) MONOCYTES RELATIVE PERCENT (BEAKER) (test 4 % gfjq=852) EOSINOPHILS RELATIVE PERCENT (BEAKER) (test 0 % mxsd=726) BASOPHILS RELATIVE PERCENT (BEAKER) (test 0 % repq=072) NEUTROPHILS ABSOLUTE COUNT (BEAKER) (test 17.91 K/ L 1.56-6.13 ojol=232) LYMPHOCYTES ABSOLUTE COUNT (BEAKER) (test 1.79 K/ L 1.18-3.74 loip=432) MONOCYTES ABSOLUTE COUNT (BEAKER) (test 0.81 K/ L 0.24-0.36 dfjk=984) EOSINOPHILS ABSOLUTE COUNT (BEAKER) (test 0.03 K/ L 0.04-0.36 bssy=378) BASOPHILS ABSOLUTE COUNT (BEAKER) (test 0.04 K/ L 0.01-0.08 lziv=899) IMMATURE GRANULOCYTES-RELATIVE PERCENT (BEAKER) 1 % 0-1 (test sugs=2736) POCT-GLUCOSE [id number] 06:08:00 Test Item Value Reference Range Comments POC-GLUCOSE METER (BEAKER) 113 mg/dL 70-110 TESTED AT [facility] [address] (test xeqb=2937) [facility] [address] POCT-GLUCOSE [id number] 18:58:00 Test Item Value Reference Range Comments POC-GLUCOSE METER (BEAKER) 117 mg/dL 70-110 TESTED AT [facility] [address] (test jyfg=8381) [facility] [address] CT, CHEST, WITH [id number] 15:20:00FINAL REPORT CT of the Chest, abdomen [...] Verified Date/Time: 02/28/2018 15:20: 36 Reading Location: [facility] C013Y CT Body Reading Room CT, [id number] 15:20: 00FINAL REPORT CT of the Chest, [...] B1 C013Y CT Body Reading Room POCT-GLUCOSE [id number] 08:55:00 Test Item Value Reference Range Comments POC-GLUCOSE METER (NEENA) 125 mg/dL 70-110 TESTED AT [facility] [address] [facility] (test actg=4296) [facility] [address] MR, BRAIN, [id number] 07:59:00STEALTH protocolFINAL REPORT MRI Brain with and [...] Verified Date/Time : 02/28/2018 07:59:07 Reading Location: [facility] C0[facility] Neuro Reading Room POCT- GLUCOSE [id number] 06:39:00 Test Item Value Reference Range Comments POC-GLUCOSE METER (BEAKER) 150 mg/dL 70-110 TESTED AT [facility] [address] [facility] (test aims=0341) [facility] [address] BASIC METABOLIC [id number] 05:51:00 Test Item Value Reference Range Comments SODIUM (BEAKER) (test 137 meq/L 136-145 pavq=635) POTASSIUM (BEAKER) (test 3.8 meq/L 3.5-5.1 obyd=676) CHLORIDE (BEAKER) (test 104 meq/L 98-107 ltuh=959) CO2 (BEAKER) (test 24 meq/L 22-29 cdeg=402) BLOOD UREA NITROGEN 13 mg/dL 7-21 (BEAKER) (test ifcf=065) CREATININE (BEAKER) (test 0.72 mg/dL 0.57-1.25 qxnl=909) GLUCOSE RANDOM (BEAKER) 131 mg/dL 70-105 (test qqbl=621) CALCIUM (BEAKER) (test 9.9 mg/dL 8.4-10.2 wohe=894) EGFR (BEAKER) (test mL/min/1.73 sq m INSUFFICIENT CLINICAL DATA pdtx=7838) TO CALCULATE ESTIMATED GFR. CBC W/PLT COUNT & AUTO [id number] 04:09:00 Test Item Value Reference Range Comments WHITE BLOOD CELL COUNT (BEAKER) (test qtqd=585) 18.5 K/ L 3.5-10.5 RED BLOOD CELL COUNT (BEAKER) (test czyi=826) 4.50 M/ L 3.93-5.22 HEMOGLOBIN (BEAKER) (test hniv=819) 11.2 GM/DL 11.2-15.7 HEMATOCRIT (BEAKER) (test wxyw=094) 35.7 % 34.1-44.9 MEAN CORPUSCULAR VOLUME (BEAKER) (test acnk=971) 79.3 fL 79.4-94.8 MEAN CORPUSCULAR HEMOGLOBIN (BEAKER) (test 24.9 pg 25.6-32.2 qtkw=867) MEAN CORPUSCULAR HEMOGLOBIN CONC (BEAKER) (test 31.4 GM/DL 32.2-35.5 tamz=100) RED CELL DISTRIBUTION WIDTH (BEAKER) (test 14.0 % 11.7-14.4 pbkh=897) PLATELET COUNT (BEAKER) (test ntvo=230) 590 K/CU MM 150-450 MEAN PLATELET VOLUME (BEAKER) (test qoab=777) 9.2 fL 9.4-12.3 NUCLEATED RED BLOOD CELLS (BEAKER) (test 0 /100 WBC 0-0 vgkm=432) NEUTROPHILS RELATIVE PERCENT (BEAKER) (test 90 % comz=744) LYMPHOCYTES RELATIVE PERCENT (BEAKER) (test 7 % qomp=061) MONOCYTES RELATIVE PERCENT (BEAKER) (test 2 % deqn=284) EOSINOPHILS RELATIVE PERCENT (BEAKER) (test 0 % stuo=195) BASOPHILS RELATIVE PERCENT (BEAKER) (test 0 % sirw=485) NEUTROPHILS ABSOLUTE COUNT (BEAKER) (test 16.64 K/ L 1.56-6.13 vdao=118) LYMPHOCYTES ABSOLUTE COUNT (BEAKER) (test 1.26 K/ L 1.18-3.74 buis=798) MONOCYTES ABSOLUTE COUNT (BEAKER) (test 0.44 K/ L 0.24-0.36 vvrb=920) EOSINOPHILS ABSOLUTE COUNT (BEAKER) (test 0.01 K/ L 0.04-0.36 huhz=558) BASOPHILS ABSOLUTE COUNT (BEAKER) (test 0.03 K/ L 0.01-0.08 ypsy=685) IMMATURE GRANULOCYTES-RELATIVE PERCENT (BEAKER) 1 % 0-1 (test liua=5306) POCT-GLUCOSE [id number] 00:17:00 Test Item Value Reference Range Comments POC-GLUCOSE METER (BEAKER) 122 mg/dL 70-110 TESTED AT [address] (test lcyj=9146) [place] [address] POCT-GLUCOSE [id number] 18:35:00 Test Item Value Reference Range Comments POC-GLUCOSE METER (BEAKER) 134 mg/dL 70-110 TESTED AT [address] (test qgcb=6424) [place] [address] POCT-GLUCOSE [id number] 12:10:00 Test Item Value Reference Range Comments POC-GLUCOSE METER (BEAKER) 146 mg/dL 70-110 TESTED AT [address] (test vvrh=0819) [place] [address] [id number] 07:56:00 Test Item Value Reference Range Comments PROCALCITONIN (BEAKER) (test gyda=2078) < ng/mL <0.05 SEPSIS RISK (ng/mL)Low: 0.05-0.50Intermediate: 0.51-2.00High: & gt;=2.01LACTATE DEHYDROGENASE (LDH)2018-02-27 06:52:00 Test Item Value Reference Range Comments LACTATE DEHYDROGENASE (BEAKER) (test ugcc=297) 146 U/L 125-220 C-REACTIVE [id number] 06:52:00 Test Item Value Reference Range Comments C-REACTIVE PROTEIN (BEAKER) (test wxpz=081) 8.22 mg/dL 0.00-0.50 LACTIC ACID, ARTERIAL, WHOLE [id number] 06:01:00 Test Item Value Reference Range Comments LACTATE BLOOD ARTERIAL (2) (BEAKER) (test 1.0 mmol/L 0.5-2.2 jdyj=5721) BASIC METABOLIC [id number] 05:52:00 Test Item Value Reference Range Comments SODIUM (BEAKER) (test 137 meq/L 136-145 jzxg=373) POTASSIUM (BEAKER) (test 4.2 meq/L 3.5-5.1 Specimen slightly zihu=409) hemolyzed CHLORIDE (BEAKER) (test 105 meq/L 98-107 zejm=124) CO2 (BEAKER) (test 25 meq/L 22-29 txuo=613) BLOOD UREA NITROGEN 13 mg/dL 7-21 (BEAKER) (test vyti=149) CREATININE (BEAKER) (test 0.74 mg/dL 0.57-1.25 Specimen slightly jcmf=393) hemolyzed GLUCOSE RANDOM (BEAKER) 93 mg/dL 70-105 (test zsyj=816) CALCIUM (BEAKER) (test 9.4 mg/dL 8.4-10.2 cnvb=943) EGFR (BEAKER) (test mL/min/1.73 sq m INSUFFICIENT CLINICAL DATA myny=6155) TO CALCULATE ESTIMATED GFR. TROPONIN [id number] 05:48:00 Test Item Value Reference Range Comments TROPONIN I (BEAKER) (test gfvf=485) < ng/mL 0.00-0.03 [id number] 05:43:00 Test Item Value Reference Range Comments MAGNESIUM (BEAKER) (test 2.1 mg/dL 1.6-2.6 Specimen slightly hemolyzed dncw=058) [id number] 05:43:00 Test Item Value Reference Range Comments PHOSPHORUS (BEAKER) (test 4.1 mg/dL 2.3-4.7 Specimen slightly hemolyzed ubor=636) CBC W/PLT COUNT & AUTO [id number] 05:34:00 Test Item Value Reference Range Comments WHITE BLOOD CELL COUNT (BEAKER) (test yumb=778) 13.1 K/ L 3.5-10.5 RED BLOOD CELL COUNT (BEAKER) (test rpbn=184) 4.42 M/ L 3.93-5.22 HEMOGLOBIN (BEAKER) (test ebrz=707) 11.2 GM/DL 11.2-15.7 HEMATOCRIT (BEAKER) (test ijnh=975) 35.7 % 34.1-44.9 MEAN CORPUSCULAR VOLUME (BEAKER) (test xoro=266) 80.8 fL 79.4-94.8 MEAN CORPUSCULAR HEMOGLOBIN (BEAKER) (test 25.3 pg 25.6-32.2 cvss=916) MEAN CORPUSCULAR HEMOGLOBIN CONC (BEAKER) (test 31.4 GM/DL 32.2-35.5 cnuq=369) RED CELL DISTRIBUTION WIDTH (BEAKER) (test 14.2 % 11.7-14.4 bsea=443) PLATELET COUNT (BEAKER) (test srqd=554) 490 K/CU MM 150-450 MEAN PLATELET VOLUME (BEAKER) (test nucf=475) 9.0 fL 9.4-12.3 NUCLEATED RED BLOOD CELLS (BEAKER) (test 0 /100 WBC 0-0 qaii=961) NEUTROPHILS RELATIVE PERCENT (BEAKER) (test 63 % zubf=773) LYMPHOCYTES RELATIVE PERCENT (BEAKER) (test 25 % fuqr=355) MONOCYTES RELATIVE PERCENT (BEAKER) (test 8 % cmip=888) EOSINOPHILS RELATIVE PERCENT (BEAKER) (test 4 % xrbz=627) BASOPHILS RELATIVE PERCENT (BEAKER) (test 1 % ncvj=866) NEUTROPHILS ABSOLUTE COUNT (BEAKER) (test 8.20 K/ L 1.56-6.13 ryze=247) LYMPHOCYTES ABSOLUTE COUNT (BEAKER) (test 3.22 K/ L 1.18-3.74 bszx=035) MONOCYTES ABSOLUTE COUNT (BEAKER) (test 0.99 K/ L 0.24-0.36 mxwi=849) EOSINOPHILS ABSOLUTE COUNT (BEAKER) (test 0.57 K/ L 0.04-0.36 eiqu=436) BASOPHILS ABSOLUTE COUNT (BEAKER) (test 0.08 K/ L 0.01-0.08 qhqs=467) IMMATURE GRANULOCYTES-RELATIVE PERCENT (BEAKER) 1 % 0-1 (test sgue=0174) POCT-GLUCOSE [id number] 05:32:00 Test Item Value Reference Range Comments POC-GLUCOSE METER (BEAKER) 118 mg/dL 70-110 TESTED AT [facility] [address] [facility] (test nikr=6274) [facility] [address] [id number] 05:20:00 Test Item Value Reference Range Comments PROTIME (BEAKER) (test ssil=479) 13.7 seconds 11.7-14.7 INR (BEAKER) (test etia=801) 1.1 <=5.9 PARTIAL THROMBOPLASTIN TIME (BEAKER) (test 26.4 seconds 22.5-36.0 luwn=297) RECOMMENDED COUMADIN/WARFARIN INR THERAPY RANGESSTANDARD DOSE: 2.0 - 3.0 Includes: PROPHYLAXIS forvenous thrombosis, systemic embolization; TREATMENT for venous thrombosis and/or pulmonary embolus.HIGH RISK: Target INR is 2.5-3.5 for patients with mechanical heart valves.PROTHROMBIN [id number] 05:19: 00 Test Item Value Reference Range Comments PROTIME (BEAKER) (test ldoh=473) 13.7 seconds 11.7-14.7 INR (BEAKER) (test efmq=506) 1.1 <=5.9 RECOMMENDED COUMADIN/WARFARIN INR THERAPY RANGESSTANDARD DOSE: 2.0 - 3.0 Includes: PROPHYLAXIS forvenous thrombosis, systemic embolization; TREATMENT for venous thrombosis and/or pulmonary embolus.HIGH RISK: Target INR is 2.5-3.5 for patients with mechanical heart valves.
--- OUTSIDE RECORDS SUMMARY | 2019-04-26 17:16 | XMS REPORT ---
[...] End Date Status Dosage Date ProAir HFA [facility] [id number] 108 (90 Base) Jan 27, Active 2 puffs as MCG/ACT 2019 needed Inhalation every 6 hrs Aspirin [facility] [id number] 81 MG Orally Once Active 1 tablet a day Results No Known Results Summary Purpose eClinicalWorks Submission
[2019-04-26 19:29] LABS: Absolute Lymphocytes (CBC) 2.1 K/uL (0.7-4.9); Basophils % 1.2 % (0-1.3); Lymphocytes % 13.6 % (15.3-44.8)
[2019-04-26] MEDS ORDERED: MORPHINE 4 MG/ML SYR ONE ×2 (19:43→20:41)
[2019-04-26] MEDS ORDERED: ACETAMINOPHEN 500 MG TAB ONE (19:43)
[2019-04-26] MEDS ORDERED: ONDANSETRON 4 MG/2 ML VIAL ONE ×2 (19:43→20:42)
[2019-04-26] MEDS ORDERED: NA CHLORIDE 0.9% 1,000 ML ONE (19:44)
[2019-04-26 19:55] LABS: ALT/SGPT 33 U/L (12-78); AST/SGOT 31 U/L (15-37); Albumin 2.5 g/dL (3.4-5.0); Alkaline Phosphatase 126 U/L (45-117); BUN Blood Urea Nitrogen 10 mg/dL (7-18); Bicarbonate 24 mmol/L (21-32); Bilirubin Direct < 0.1 mg/dL (0-0.2); Bilirubin Total 0.4 mg/dL (0.2-1.0); Glucose Level 128 mg/dL (74-106); Lipase 88 U/L (73-393); Potassium 3.9 mmol/L (3.5-5.1); Protein, Total 8.8 g/dL (6.4-8.2); Sodium Level 135 mmol/L (136-145)
--- NOTE | 2019-04-26 20:43 | RAD REPORT ---
EXAM DESCRIPTION: CT - Head Brain Wo Cont - 04/26/2019 8:20 pm CLINICAL HISTORY: Headache COMPARISON: 2018 TECHNIQUE: Computed axial tomography of the head was obtained. IV contrast was not requested. All CT scans are performed using dose optimization technique as appropriate and may include automated exposure control or mA/KV adjustment according to patient size. FINDINGS: An intracranial bleed is not seen . The ventricles are normal in caliber. No extra-axial fluid collection is noted. Suboccipital craniotomy. Fluid within the sinuses/ mastoids is not seen. IMPRESSION: No acute intracranial abnormality is seen. If patient's symptoms persist MRI of the bra in would be recommended.
--- NOTE | 2019-04-26 20:51 | RAD REPORT ---
EXAM DESCRIPTION: CT - Abdomen Pelvis W Contrast - 04/26/2019 8:20 pm CLINICAL HISTORY: Abdominal pain COMPARISON: 2014 TECHNIQUE: Computed axial tomography of the abdomen pelvis was obtained. 100 cc Isovue-300 was admin istered intravenously. Oral contrast was not requested which limits evaluation of bowel. All CT scans are performed using dose optimization technique as appropriate and may include automated exposure control or mA/KV adjustment according to patient size. FINDINGS: The liver, spleen, pancreas, adrenal and kidneys appear unremarkable. There is no evidence of diverticulitis. Normal appendix IMPRESSION: No acute abnormality is displayed.
[2019-04-26 20:53] LABS: Blood Morphology Comment NOT SEEN (NOT SEEN); Platelet Estimate INCR; Urine White Blood Cell Casts OK
--- NOTE | 2019-04-26 22:04 | EDPHYS ---
Physician Documentation [facility] Name: Albania Alfaro Age: 59 yrs Sex: Female : 1960 Arrival Date: 04/26/2019 Time: 17:12 Bed 26 Private MD: ED Physician Josef Alamo HPI: 04/26 18:48 This 59 yrs old Female presents to ER via Ambulatory with complaints of pm1 Headache, Fever, Abdominal Pain. 18:48 The patient complains of pain to the forehead. The patient describes the headache as pm1 aching. Onset: The symptoms/episode began/occurred 2.5 week(s) ago. Associated signs and symptoms: Pertinent positives: abdominal pain RLQ. Severity of symptoms: in the emergency department the pain is actually worse. Headache History: The patient has had previous headaches and this one is similar to previous episodes, and this one is more severe than previous episodes. The symptoms are alleviated by nothing. the symptoms are aggravated by nothing. Patient reports on and off fevers with headache and RLQ pain for the past 2.5 weeks. Patient was seen here just before onset of the abdominal pain for chest pain. Had lab work and CT chest and discharged home. Historical: - Allergies: 17:58 Erythromycin; rv - PMHx: 17:58 Cancer; Diverticulitis; Vertigo; rv - PSHx: 17:58 brain tumor removal 2018; Cholecystectomy; Tubal ligation; rv - Immunization history:: Adult Immunizations up to date. - Coronavirus screen:: The patient has NOT traveled to [place], [place], or [place] in the past 14 days. The patient has NOT had contact with known/suspected case of Coronavirus?. - Ebola Screening: : Patient denies travel to an Ebola-affected area in the 21 days before illness onset. ROS: 18:48 Eyes: Negative for injury, pain, redness, and discharge, ENT: Negative for injury, pm1 pain, and discharge, Neck: Negative for injury, pain, and swelling, Cardiovascular: Negative for chest pain, palpitations, and edema, Respiratory: Negative for shortness of breath, cough, wheezing, and pleuritic chest pain. 18:48 Back: Negative for injury and pain, : Negative for injury, bleeding, discharge, and swelling, MS/Extremity: Negative for injury and deformity, Skin: Negative for injury, rash, and discoloration. 18:48 Constitutional: Positive for fever, Negative for body aches, poor PO intake. 18:48 Abdomen/GI: Positive for abdominal pain, of the right lower quadrant, Negative for nausea, vomiting, and diarrhea. 18:48 Neuro: Positive for headache, Negative for numbness, tingling. Exam: 18:48 Constitutional: This is a well developed, well nourished patient who is awake, alert, pm1 and in no acute distress. Head/Face: Normocephalic, atraumatic. Eyes: Pupils equal round and reactive to light, extra-ocular motions intact. Lids and lashes normal. Conjunctiva and sclera are non-icteric and not injected. Cornea within normal limits. Periorbital areas with no swelling, redness, or edema. ENT: Nares patent. No nasal discharge, no septal abnormalities noted. Tympanic membranes are normal and external auditory canals are clear. Oropharynx with no redness, swelling, or masses, exudates, or evidence of obstruction, uvula midline. Mucous membranes moist. Neck: Trachea midline, no thyromegaly or masses palpated, and no cervical lymphadenopathy. Supple, full range of motion without nuchal rigidity, or vertebral point tenderness. No Meningismus. Chest/axilla: Normal chest wall appearance and motion. Nontender with no deformity. No lesions are appreciated. Cardiovascular: Regular rate and rhythm with a normal S1 and S2. No gallops, murmurs, or rubs. Normal PMI, no JVD. No pulse deficits. Respiratory: Lungs have equal breath sounds bilaterally, clear to auscultation and percussion. No rales, rhonchi or wheezes noted. No increased work of breathing, no retractions or nasal flaring. 18:48 Back: No spinal tenderness. No costovertebral tenderness. Full range of motion. Skin: Warm, dry with normal turgor. Normal color with no rashes, no lesions, and no evidence of cellulitis. MS/ Extremity: Pulses equal, no cyanosis. Neurovascular intact. Full, normal range of motion. 18:48 Abdomen/GI: Inspection: abdomen appears normal, Bowel sounds: normal, Palpation: soft, in all quadrants, mild abdominal tenderness, in the right lower quadrant, mass, is not appreciated, rebound tenderness, is not appreciated. 18:48 Neuro: Orientation: is normal, Motor: is normal, moves all fours, Sensation: is normal, no obvious gross deficits. Vital Signs: 17:54 BP 125 / 71; Pulse 86; Resp 17; Temp 99.7; Pulse Ox 100% ; Weight 78.02 kg; Height 5 rv ft. 4 in. (162.56 cm); Pain 10/10; 19:53 BP 94 / 50; Pulse 82; Resp 18; Pulse Ox 99% on R/A; aj1 20:49 BP 138 / 54; Pulse 68; Resp 18; Pulse Ox 99% on R/A; aj1 21:58 BP 122 / 53; Pulse 77; Resp 18; Pulse Ox 98% on R/A; aj1 22:55 BP 121 / 67; Pulse 85; Resp 16; Temp 98.6; Pulse Ox 100% ; Pain 6/10; ch2 17:54 Body Mass Index 29.52 (78.02 kg, 162.56 cm) rv MDM: 18:37 Patient medically screened. pm1 22:01 Data reviewed: vital signs. Data interpreted: Pulse oximetry: on room air is 98 %. pm1 Interpretation: normal. Counseling: I had a detailed discussion with the patient and/or guardian regarding: the historical points, exam findings, and any diagnostic results supporting the discharge/admit diagnosis, lab results, radiology results, the need for outpatient follow up, to return to the emergency department if symptoms worsen or persist or if there are any questions or concerns that arise at home. 04/26 18:48 Order name: Basic Metabolic Panel; Complete Time: 19:56 pm04/26 18:48 Order name: CBC with Diff; Complete Time: 21:02 pm04/26 18:48 Order name: Creatinine for Radiology; Complete Time: 19:55 pm04/26 18:48 Order name: Hepatic Function; Complete Time: 19:56 pm04/26 18:48 Order name: Lipase; Complete Time: 19:56 pm04/26 19:23 Order name: Flu; Complete Time: 20:36 pm04/26 18:48 Order name: CT Head Brain wo Cont; Complete Time: 20:48 pm04/26 18:49 Order name: CT Abd/Pelvis - IV Contrast Only; Complete Time: 21:02 pm04/26 19:41 Order name: CBC Smear Scan; Complete Time: 21:02 EDMS 04/26 18:48 Order name: IV Saline Lock; Complete Time: 19:37 pm1 04/26 18:48 Order name: Labs collected and sent; Complete Time: 19:37 pm1 Administered Medications: 19:52 Drug: morphine 4 mg {Note: RASS score 0 patient is alert.} Route: IVP; Site: right aj1 antecubital; 22:16 Follow up: Response: No adverse reaction; Pain is decreased aj 19:52 Drug: Zofran 4 mg Route: IVP; Site: right antecubital; aj1 22:16 Follow up: Response: No adverse reaction aj1 :52 Drug: NS 0.9% 1000 ml Route: IV; Rate: 1000 ml; Site: right antecubital; aj1 22:16 Follow up: IV Status: Completed infusion; IV Intake: 1000ml aj 20:44 Drug: Tylenol 1000 mg Route: PO; aj1 22:15 Follow up: Response: No adverse reaction aj1 20:44 Drug: morphine 4 mg Route: IVP; Site: right antecubital; aj1 22:15 Follow up: Response: No adverse reaction; Pain is decreased; RASS: Alert and Calm (0) aj1 20:44 Drug: Zofran 4 mg Route: IVP; Site: right antecubital; aj1 22:15 Follow up: Response: No adverse reaction aj1 22:37 Drug: TORadol - Ketorolac 15 mg Route: IVP; Site: right antecubital; ch2 22:37 Drug: Benadryl 12.5 mg Route: IVP; Site: right antecubital; ch2 22:37 Drug: Reglan 10 mg Route: IVP; Site: right antecubital; ch2 Disposition: 04/27 10:00 Co-signature as Attending Physician, Josef Alamo MD I agree with the assessment and kdr plan of care. Disposition: 04/26/19 22:03 Discharged to Home. Impression: Headache, Unspecified abdominal pain. - Condition is Stable. - Discharge Instructions: Abdominal Pain, Adult, General Headache Without Cause. - Prescriptions for Tylenol- Codeine #3 300-30 mg Oral Tablet - take 2 tablets by ORAL route every 6 hours As needed; 20 tablet. Zofran 4 mg Oral Tablet - take 1 tablet by ORAL route every 12 hours As needed; 20 tablet. - Medication Reconciliation Form, Thank You Letter, Antibiotic Education, Prescription Opioid Use form. - Follow up: Emergency Department; When: As needed; Reason: Recheck today's complaints, Continuance of care, Re-evaluation by your physician. Follow up: Private Physician; When: 2 - 3 days; Reason: Recheck today's complaints, Continuance of care, Re-evaluation by your physician. - Problem is new. - Symptoms have improved. Signatures: Dispatcher [employer] EDMS Julisa Renee, RN RN aj1 Josef Alamo MD MD kdr Priscilla Tejeda RN RN fc Joselito Barr NP DESKTOP PUBLISHING SPECIALIST pm1 Beth Mclaughlin RN RN ch2 Jose Webster RN RN rv Corrections: (The following items were deleted from the chart) 04/26 22:53 22:03 04/26/2019 22:03 Discharged to Home. Impression: Headache; Unspecified abdominal fc pain. Condition is Stable. Forms are Medication Reconciliation Form, Thank You Letter, Antibiotic Education, Prescription Opioid Use. Follow up: Emergency Department; When: As needed; Reason: Recheck today's complaints, Continuance of care, Re-evaluation by your physician. Follow up: Private Physician; When: 2 - 3 days; Reason: Recheck today's complaints, Continuance of care, Re-evaluation by your physician. Problem is new. Symptoms have improved. pm1
--- NOTE | 2019-04-26 22:04 | ER ---
Nurse's Notes [facility] Name: Albania Alfaro Age: 59 yrs Sex: Female : 1960 Arrival Date: 04/26/2019 Time: 17:12 Bed 26 Private MD: Diagnosis: Headache;Unspecified abdominal pain Presentation: 04/26 17:54 Presenting complaint: Patient states: head ache and abdominal pain started two and a rv half weeks ago. I thought it was from the eye glasses but I started wearing it and did not help with the headache. I have history of lung cancer and it metastasized to my brain. they removed the brain cancer Deceber of 2018. and the abdominal pain kind of came with the headache. Transition of care: patient was not received from another setting of care. Onset of symptoms was April 25, 2019 at 08:00. Risk Assessment: Do you want to hurt yourself or someone else? Patient reports no desire to harm self or others. Initial Sepsis Screen: Does the patient meet any 2 criteria? No. Patient's initial sepsis screen is negative. Does the patient have a suspected source of infection? No. Patient's initial sepsis screen is negative. Care prior to arrival: None. 17:54 Method Of Arrival: Ambulatory rv 17:54 Acuity: AILYN 3 rv Triage Assessment: 17:59 Headache History: The patient has had previous headaches and this one is more severe rv than previous episodes. General: Appears in no apparent distress. Behavior is calm, cooperative. Pain: Complains of pain in head Pain currently is 10 out of 10 on a pain scale. Quality of pain is described as pressure, Pain began suddenly, Also complains of no other associated symptoms. Pain: Complains of pain in abdomen Pain currently is 8 out of 10 on a pain scale. Quality of pain is described as aching, dull. Neuro: Level of Consciousness is awake, alert, obeys commands, Oriented to person, place, time, situation. Cardiovascular: Patient's skin is warm and dry. Respiratory: Airway is patent. Historical: - Allergies: 17:58 Erythromycin; rv - PMHx: 17:58 Cancer; Diverticulitis; Vertigo; rv - PSHx: 17:58 brain tumor removal 2018; Cholecystectomy; Tubal ligation; rv - Immunization history:: Adult Immunizations up to date. - Coronavirus screen:: The patient has NOT traveled to [place], [place], or [place] in the past 14 days. The patient has NOT had contact with known/suspected case of Coronavirus?. - Ebola Screening: : Patient denies travel to an Ebola-affected area in the 21 days before illness onset. Screenin:36 Abuse screen: Denies threats or abuse. Denies injuries from another. Nutritional aj1 screening: No deficits noted. Tuberculosis screening: No symptoms or risk factors identified. 20:50 Fall Risk None identified. aj1 Assessment: 18:36 General: Appears in no apparent distress. uncomfortable, Behavior is calm, cooperative, aj1 appropriate for age. Pain: Complains of pain in forehead and right upper quadrant Pain does not radiate. Pain currently is 10 out of 10 on a pain scale. Neuro: Level of Consciousness is awake, alert, obeys commands, Oriented to person, place, time, situation, Moves all extremities. Full function Speech is normal, Facial symmetry appears normal, Reports headache. Neuro: Cardiovascular: Patient's skin is warm and dry. Respiratory: Airway is patent Respiratory effort is even, unlabored, Respiratory pattern is regular, symmetrical. GI: Abdomen is non-distended, Bowel sounds present X 4 quads. Abd is soft and non tender X 4 quads. Reports nausea, vomiting, Patient currently denies diarrhea. : No signs and/or symptoms were reported regarding the genitourinary system. EENT: No signs and/or symptoms were reported regarding the EENT system. Derm: No signs and/or symptoms reported regarding the dermatologic system. Skin is pink, warm \T\ dry. normal. Musculoskeletal: No signs and/or symptoms reported regarding the musculoskeletal system. Circulation, motion, and sensation intact. 19:53 Reassessment: Patient appears in no apparent distress at this time. No changes from aj1 previously documented assessment. Patient and/or family updated on plan of care and expected duration. Pain level reassessed. Patient is alert, oriented x 3, equal unlabored respirations, skin warm/dry/pink. 20:49 Reassessment: Patient appears in no apparent distress at this time. No changes from aj1 previously documented assessment. Patient and/or family updated on plan of care and expected duration. Pain level reassessed. Patient is alert, oriented x 3, equal unlabored respirations, skin warm/dry/pink. 21:58 Reassessment: Patient appears in no apparent distress at this time. No changes from aj1 previously documented assessment. Patient and/or family updated on plan of care and expected duration. Pain level reassessed. Patient is alert, oriented x 3, equal unlabored respirations, skin warm/dry/pink. 22:30 Reassessment: No changes from previously documented assessment. Patient and/or family ch2 updated on plan of care and expected duration. Pain level reassessed. Patient is alert, oriented x 3, equal unlabored respirations, skin warm/dry/pink. 22:30 General: Appears in no apparent distress. uncomfortable, Behavior is calm, cooperative, ch2 appropriate for age. Pain: Complains of pain in right lower quadrant and right upper quadrant and forehead and abdomen Pain currently is 6 out of 10 on a pain scale. Vital Signs: 17:54 BP 125 / 71; Pulse 86; Resp 17; Temp 99.7; Pulse Ox 100% ; Weight 78.02 kg; Height 5 rv ft. 4 in. (162.56 cm); Pain 10/10; 19:53 BP 94 / 50; Pulse 82; Resp 18; Pulse Ox 99% on R/A; aj1 20:49 BP 138 / 54; Pulse 68; Resp 18; Pulse Ox 99% on R/A; aj1 21:58 BP 122 / 53; Pulse 77; Resp 18; Pulse Ox 98% on R/A; aj1 22:55 BP 121 / 67; Pulse 85; Resp 16; Temp 98.6; Pulse Ox 100% ; Pain 6/10; ch2 17:54 Body Mass Index 29.52 (78.02 kg, 162.56 cm) rv ED Course: 17:12 Patient arrived in ED. as 17:57 Triage completed. rv 17:59 Arm band placed on. rv 18:30 Julisa Renee, RN is Primary Nurse. aj1 18:36 Patient has correct armband on for positive identification. Bed in low position. Call aj1 light in reach. Side rails up X 1. 18:36 No provider procedures requiring assistance completed. aj1 18:37 Joselito Barr NP is PHCP. pm1 18:37 Josef Alamo MD is Attending Physician. pm1 18:42 Warm blanket given. Verbal reassurance given. Pulse ox on. NIBP on. jp3 18:42 Patient maintains SpO2 saturation greater than 95% on room air. jp3 18:52 Radiology exam delayed due to lab results not completed at this time. (BUN/Creatinine). mw3 19:20 Initial lab(s) drawn, by me, sent to lab. Flu and/or RSV swab sent to lab. jp3 19:33 Inserted saline lock: 22 gauge in right antecubital area, using aseptic technique. jp3 Blood collected. 20:20 CT Head Brain wo Cont In Process Unspecified. EDMS 20:20 CT Abd/Pelvis - IV Contrast Only In Process Unspecified. EDMS 20:20 CT completed. Patient tolerated procedure well. Patient moved back from CT. mw3 22:30 Assisted to bathroom. ch2 22:55 IV discontinued, intact, bleeding controlled, No redness/swelling at site. Pressure ch2 dressing applied. Administered Medications: 19:52 Drug: morphine 4 mg {Note: RASS score 0 patient is alert.} Route: IVP; Site: right aj1 antecubital; 22:16 Follow up: Response: No adverse reaction; Pain is decreased aj1 19:52 Drug: Zofran 4 mg Route: IVP; Site: right antecubital; aj1 22:16 Follow up: Response: No adverse reaction aj1 19:52 Drug: NS 0.9% 1000 ml Route: IV; Rate: 1000 ml; Site: right antecubital; aj1 22:16 Follow up: IV Status: Completed infusion; IV Intake: 1000ml aj1 20:44 Drug: Tylenol 1000 mg Route: PO; aj1 22:15 Follow up: Response: No adverse reaction aj1 20:44 Drug: morphine 4 mg Route: IVP; Site: right antecubital; aj1 22:15 Follow up: Response: No adverse reaction; Pain is decreased; RASS: Alert and Calm (0) aj1 20:44 Drug: Zofran 4 mg Route: IVP; Site: right antecubital; aj1 22:15 Follow up: Response: No adverse reaction aj1 22:37 Drug: TORadol - Ketorolac 15 mg Route: IVP; Site: right antecubital; ch2 22:37 Drug: Benadryl 12.5 mg Route: IVP; Site: right antecubital; ch2 22:37 Drug: Reglan 10 mg Route: IVP; Site: right antecubital; ch2 Intake: 22:16 IV: 1000ml; Total: 1000ml. aj1 Outcome: 22:03 Discharge ordered by . pm1 22:53 Patient left the ED. 22:55 Discharged to home via wheelchair, with family. ch2 22:55 Condition: good ch2 22:55 Discharge instructions given to patient, family, Instructed on discharge instructions, follow up and referral plans. medication usage, Demonstrated understanding of instructions, follow-up care, medications, Prescriptions given X 2. Signatures: Dispatcher [employer] EDMS Julisa Renee RN RN aj1 Priscilla Tejeda RN RN Azra Jenkins Patrick, SUCTION PLATE CARRIER CLEANER SUCTION PLATE CARRIER CLEANER pm1 Beth Mclaughlin RN RN [facility] Joyce Asif 3 Jose Webster, RN RN Xavier Cabrera 3
[2019-04-26] MEDS ORDERED: METOCLOPRAMIDE 10 MG/2mL INJ ONE (22:30)
[2019-04-26] MEDS ORDERED: KETOROLAC 30 MG/ML INJ ONE (22:30)
[2019-04-26] MEDS ORDERED: DIPHENHYDRAMINE 50 MG/ML VIAL ONE (22:31)
[2019-04-26 23:33] VITALS: BP 121/67; TEMP 98.6; O2SAT 100
== END 2019-04-26 22:53 | disposition home or self-care (01) ==
LOC: ER 17:10
DX: R10.31 Right lower quadrant pain (principal); Z88.3 Allergy status to other anti-infective agents
CPT/HCPCS: 96361; 85025; 80048; 36415; 80076; 83690; 87804 ×2; 70450; 74177; 96375; 96374; 99285; Q9967; J2765; J1200; J7030; J2405 ×2

== ENCOUNTER 2019-08-23 21:25 | Emergency (ER) | payer MEDICAID ==
--- OUTSIDE RECORDS SUMMARY | 2019-08-23 21:27 | XMS REPORT | Clinical Summary ---
:1960 Author Organization [facility] Address [address] [place] [id number] Care Team Providers Name Role Phone Unavailable Primary Care Provider Unavailable Allergies Active Allergy Reactions Severity Noted Date Comments Erythromycin 02/27/2018 Delirium and fe maureen. 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 Last Filed Vital Signs Not on file Plan of Treatment Not on file Implants Implanted Type Area 1St Grade Teacher Device Shelf Model / Identifier Expiration Serial / Lot Date [facility] 10ml [id number] - Sna Cement/F N/A: BA XTER:BIOSCI 07/25/2019 [id number] / Implanted: Qty: 1 on 03/06/2018 by Robert Hightower MD iller/Ad Head NA / hesive [id number] [employer] Durasl Spine 5ml [id number] - [id number] Cement/F N/A: INT EGRA LIFESCI 07/30/[id number] / Implanted: Qty: 1 on 03/06/2018 by Robert Hightower MD iller/Ad Head / hesive [id number] Plt Str Lp-Neuro 2h 12mm Ti Ns 421.502 - Sna Fracture N/A: SYNTH ES:SYNTHES 421.502 / Implanted: Qty: 2 on 03/06/2018 by Robert Hightower MD /[employer] NA / n NA Plt Str Lp-Neuro 4h 12mm Ti Ns 421.504 - Sna Fracture N/A: SYNTH ES:SYNTHES 421.504 / Implanted: Qty: 1 on 03/06/2018 by Robert Hightower MD /[employer] NA / n NA Scr Sd Mtrxneu 4mm Ti Ns .01 - Sna Fracture N/A: SYNTH ES:SYNTHES 104.01 / Implanted: Qty: 8 on 03/06/2018 by Robert Hightower MD /Fixatio Head [facility] NA / n NA Graft Suturable Bp 4x5cm [id number] - [id number] Graft/Pa N/A: IN TEGRA LIFESCI 03/31/2022 [id number] / Implanted: Qty: 1 on 03/06/2018 by Robert Hightower MD [facility] Head [id number] / [id number] Results Not on fileafter 08/22/2018 Insurance Payer Benefit Plan / Group Subscriber ID Type Phone A ddress MEDICA[place] xxxxxxxxx Medicaid Advance Directives For more information, please contact:[address] [phone] Code Status Date Activated Date Inactivated Comments Full Code 02/27/2018 3:43 AM This code status was determined by: Patient
--- OUTSIDE RECORDS SUMMARY | 2019-08-23 21:28 | XMS REPORT ---
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 Assessment History of brain cancer in Z85.841 A ctive adulthood Assessment Migraine with aura and with status G43.101 Active migrainosus, not intractable Problem Migraine with aura and with status G43.101 Active migrainosus, not intractable Problem Cough R05 Active Problem Intractable vomiting with nausea, R11.2 Active unspecified vomiting type Problem Carotid insufficiency G45.1 Active Problem Vision changes H53.9 Active Problem Shortness of breath R06.02 Active Problem Wheezing R06.2 Active Medications Medication Code Code Instructions Start End Status Dosage System Date Date Ondansetron HCl [facility] 14341926245 4 MG Oral twice Apr 27, Acti ve 1 tablet a day 2019 Topiramate ND 05742460372 50 MG Orally Apr 30, Active 1 ta blet Once a day 2019 Acetaminophen-Co ND 45359792660 300-30 MG Orally Apr 27, Ac tive 1 tablet deine #3 every 6 hrs 2019 as needed Pantoprazole ND 67456000071 40 MG Oral Active TAKE ONE Sodium (1) TABLET(S) BY MOUTH ONCE A DAY. ProAir HFA [facility] 41573393136 108 (90 Base) Jan 27, Active 2 p uffs MCG/ACT 2019 as needed Inhalation every 6 hrs Aspirin ND 83444810957 81 MG Orally Active 1 table t Once a day Results No Known Results Summary Purpose eClinicalWorks Submission
--- OUTSIDE RECORDS SUMMARY | 2019-08-23 21:28 | XMS REPORT ---
:1960 Author Organization [facility] t Address [address] [place] [address] 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 Memori a lobe of lobe of l right lung right lung [facility] Clinics Bilateral Bilateral Problem Active [facility] change in change in [facility] - hearing hearing [facility] History of History of Problem Active [facility] brain brain [facility] - cancer in cancer in [place] adulthood adulthood [facility] Vision Vision Problem Active [facility] changes changes [facility] Carotid Carotid Problem Active [facility] insufficie insufficie Gwen kes - ncy ncy [facility] Shortness Shortness Problem Active [facility] of breath of breath [facility] - [facility] l [facility] Wheezing Wheezing Problem [facility] Cough Cough Problem Active [facility] Migraine Migraine Problem Active [facility] with aura with aura [facility] - and with and with Memori a status status l migrainosu migrainosu Ou tpati s, not s, not ent intractabl intractabl Cl inics e e Intractabl Intractabl Problem Active [facility] e vomiting e vomiting Gwen kes - with with Memoria nausea, nausea, l unspecifie unspecifie Ou tpati d vomiting d vomiting en t type type Clinics Allergies, Adverse Reactions, Alerts Allergy Allergy Status Severity Reaction(s) Onset Inactive Treating Comm ents Source Name Type Date Date Clinician Erythrom Adverse Active Info Not [facility] Reaction Available [facility] Medications Ordered Filled Start Stop Current Ordering Indication Dosage Frequency Signature Comments Components Source Medication Medication Date Date Medication? Clinician (SIG) Name Name Topiramate Topiramate Yes Critsa [address] [facility] 1-30 [facility]herty [facility] Ondansetron Ondansetron Yes Crista [address] [facility] HCl HCl 1-27 [facility] - [facility] Acetaminoph Acetaminoph Yes Crista [address] [facility] en-Codeine en-Codeine 1-27 Dougherty as needed [facility] - #3 #3 00:00: [facility] ProAir HFA ProAir HFA 2018-04 Yes Crista [address] [facility] 0-29 Dougherty needed [facility] - [facility]: [facility] Aspirin Aspirin Yes Crista [address] [facility] Pantoprazol Pantoprazol Yes Crista TAKE ONE [facility] e Sodium e Sodium Dougherty (1) [facility] - TABLET(S) Memoria BY MOUTH l ONCE A Outpati DAY. ent Clinics Procedures This patient has no known procedures. Encounters Start End Encounter Admission Attending Care Care Encounter Source Date/Time Date/Time Type Type Clinicians Facility Department ID 2019-06-16 2019-06-16 [facility] [id number] [facility] 18:08:00 18:08:00 t [facility] 2019-06-05 2019-06-05 JERAMIE Marley [id number] 08:01:07 09:06:54 Visit Cb Mcclure [id number] Jared [id number] Kimani [id number] [address] 2019-05-26 2019-05-26 [facility] [id number] [facility] 13:00:00 13:00:00 [facility] Medicine Outpati ent Clinics 2019-05-11 2019-05-11 [facility] [id number] [address] 16:17:00 16:17:00 [facility] Medicine Outpati ent Clinics 2019-04-30 2019-04-30 [facility] [id number] [address] 11:00:00 11:00:00 [facility] Medicine Outpati ent Clinics 2019-01-27 2019-01-27 [facility] [id number] [address] 08:00:00 08:00:00 [facility] Medicine Outpati ent Clinics 2019-01-19 2019-01-19 [facility] [id number] [address] 14:31:00 14:31:00 [facility] Medicine Outpati ent Clinics 2019-01-13 2019-01-13 [facility] [id number] 16:00:00 16:00:00 [facility] Medicine Outpati ent Clinics 2019-01-09 2019-01-09 [facility] [id number] 16:16:00 16:16:00 [facility] Medicine Outpati ent Clinics 2018-12-11 2018-12-11 [facility] [id number] 11:00:00 11:00:00 [facility] Outpati ent Clinics Results Test Description Test Time Test Comments Results Result Sour e Comments TISSUE EXAM 2018-05-24 Surgical Pathology Report 13:16:00 Case: [id number] Authorizing Provider: Robert Hightower MD Collected: 03/06/2018 1828 Ordering Location: [facility] PERIOPERATIVE Received: 03/07/2018 09 SERVICES Pathologist: Blu Bowers MD Specimen: Tumor The following results were reported by [employer]. Please see attached reports.PD-L1 22C3 FDA analysis confirms HIGH EXPRESSIONBRAF gene rearrangement is NOT DETECTEDROS1 gene rearrangement is NOT DETECTEDALK gene rearrangement is NOT DETECTEDEGFR mutations in exons 18, 19, 20 T790M and other mutations, 21Addendum electronically signed by Blu Bowers MD on 05/24/2018 at 1:16 PMBRAIN, CEREBELLUM, CRANIOTOMY:METASTATIC ADENOCARCINOMA WITH FOCAL SQUAMOUS DIFFERENTIATION (SEE COMMENT) Signing Pathologist Direct Phone Line: [phone] y signed by Blu Bowers MD on 03/19/2018 [...] tumor cells. Tumor is negative for p63. 05446; 63260; 47249 x 6Cancer of cerebellumTumor of craniumThe specimen [...] stains. Immunohistochemistry technical testing was performed at [facility], Pathology Laboratory where it was [...] developed and its performance characteristics determined by [facility], Pathology Laboratory. It has not been cleared [...] 2018-03-11 04:05:00 Test Item Value Reference Range Interpretation Comme nts POC-GLUCOSE METER (BEAKER) (test 174 mg/dL 70-110 H [facility]ED [facility] [address] [facility] 7703 0 POCT-GLUCOSE [id number] 12:07:00 Test Item Value Reference Range Interpretation Comments POC-GLUCOSE METER 114 mg/dL 70-110 H TESTED AT [place] [address] ([facility]) (test code = SHELLY Bill [facility] 1538) [address] POCT-GLUCOSE [id number] 07:14:00 Test Item Value Reference Range Interpretation Comments POC-GLUCOSE METER 104 mg/dL 70-110 TESTED AT [facility] 67 ([facility]) (test code = SHELLY Bill [facility] 1538) [address] BASIC METABOLIC [id number] 05:46:00 Test Item Value Reference Range Interpretation Comments SODIUM (BEAKER) 134 meq/L 136-145 L (test code = 381) POTASSIUM (BEAKER) 4.4 meq/L 3.5-5.1 (test code = 379) CHLORIDE (BEAKER) 103 meq/L 98-107 (test code = 382) CO2 (BEAKER) (test 23 meq/L 22-29 code = 355) BLOOD UREA NITROGEN 19 mg/dL 7-21 (BEAKER) (test code = 354) CREATININE (BEAKER) 0.60 mg/dL 0.57-1.25 (test code = 358) GLUCOSE RANDOM 103 mg/dL 70-105 (BEAKER) (test code = 652) CALCIUM (BEAKER) 9.7 mg/dL 8.4-10.2 (test code = 697) EGFR (BEAKER) (test mL/min/1.73 INSUFFIC IENT CLINICAL code = 1092) sq m DATA TO CALCULA TE ESTIMATED GFR. CBC W/PLT COUNT & AUTO [id number] 05:20:00 Test Item Value Reference Range Interpretation Comments WHITE BLOOD CELL COUNT (BEAKER) 20.9 K/ L 3.5-10.5 H (test code = 775) RED BLOOD CELL COUNT (BEAKER) 5.18 M/ L 3.93-5.22 (test code = 761) HEMOGLOBIN (BEAKER) (test code = 12.9 GM/DL 11.2-15.7 410) HEMATOCRIT (BEAKER) (test code = 41.8 % 34.1-44.9 411) MEAN CORPUSCULAR VOLUME (BEAKER) 80.7 fL 79.4-94.8 (test code = 753) MEAN CORPUSCULAR HEMOGLOBIN 24.9 pg 25.6-32.2 L (BEAKER) (test code = 751) MEAN CORPUSCULAR HEMOGLOBIN CONC 30.9 GM/DL 32.2-35.5 L (BEAKER) (test code = 752) RED CELL DISTRIBUTION WIDTH 15.7 % 11.7-14.4 H (BEAKER) (test code = 412) PLATELET COUNT (BEAKER) (test 485 K/CU MM 150-450 H code = 756) MEAN PLATELET VOLUME (BEAKER) 9.1 fL 9.4-12.3 L (test code = 754) NUCLEATED RED BLOOD CELLS 0 /100 WBC 0-0 (BEAKER) (test code = 413) NEUTROPHILS RELATIVE PERCENT 82 % (BEAKER) (test code = 429) LYMPHOCYTES RELATIVE PERCENT 10 % (BEAKER) (test code = 430) MONOCYTES RELATIVE PERCENT 6 % (BEAKER) (test code = 431) EOSINOPHILS RELATIVE PERCENT 1 % (BEAKER) (test code = 432) BASOPHILS RELATIVE PERCENT 0 % (BEAKER) (test code = 437) NEUTROPHILS ABSOLUTE COUNT 17.13 K/ L 1.56-6.13 H (BEAKER) (test code = 670) LYMPHOCYTES ABSOLUTE COUNT 2.17 K/ L 1.18-3.74 (BEAKER) (test code = 414) MONOCYTES ABSOLUTE COUNT (BEAKER) 1.19 K/ L 0.24-0.36 H (test code = 415) EOSINOPHILS ABSOLUTE COUNT 0.17 K/ L 0.04-0.36 (BEAKER) (test code = 416) BASOPHILS ABSOLUTE COUNT (BEAKER) 0.03 K/ L 0.01-0.08 (test code = 417) IMMATURE GRANULOCYTES-RELATIVE 1 % 0-1 PERCENT (BEAKER) (test code = 2801) POCT-GLUCOSE [id number] 21:30:00 Test Item Value Reference Range Interpretation Comments POC-GLUCOSE METER 111 mg/dL 70-110 H TESTED AT [facility] 6720 (BEAKER) (test code = SHELLY Bill [facility] 1538) [id number] POCT-GLUCOSE [id number] 18:19:00 Test Item Value Reference Range Interpretation Comments POC-GLUCOSE METER 175 mg/dL 70-110 H TESTED AT [facility] 67 [facility] (test code = SHELLY Bill [facility] 1538) [address] POCT-GLUCOSE [id number] 08:28:00 Test Item Value Reference Range Interpretation Comments POC-GLUCOSE METER 143 mg/dL 70-110 H TESTED AT [place] [address] [facility] (test code = [facility] Landy [facility] 1538) [address] BASIC METABOLIC [id number] 06:32:00 Test Item Value Reference Range Interpretation Comments SODIUM (BEAKER) 134 meq/L 136-145 L (test code = 381) POTASSIUM (BEAKER) 4.8 meq/L 3.5-5.1 (test code = 379) CHLORIDE (BEAKER) 101 meq/L 98-107 (test code = 382) CO2 (BEAKER) (test 28 meq/L 22-29 code = 355) BLOOD UREA NITROGEN 23 mg/dL 7-21 H (BEAKER) (test code = 354) CREATININE (BEAKER) 0.66 mg/dL 0.57-1.25 (test code = 358) GLUCOSE RANDOM 107 mg/dL 70-105 H (BEAKER) (test code = 652) CALCIUM (BEAKER) 9.3 mg/dL 8.4-10.2 (test code = 697) EGFR (BEAKER) (test mL/min/1.73 INSUFFIC IENT CLINICAL code = 1092) sq m DATA TO CALCULA TE ESTIMATED GFR. CBC W/PLT COUNT & AUTO [id number] 06:29:00 Test Item Value Reference Range Interpretation Comments WHITE BLOOD CELL COUNT (BEAKER) 20.6 K/ L 3.5-10.5 H (test code = 775) RED BLOOD CELL COUNT (BEAKER) 4.79 M/ L 3.93-5.22 (test code = 761) HEMOGLOBIN (BEAKER) (test code = 12.1 GM/DL 11.2-15.7 410) HEMATOCRIT (BEAKER) (test code = 38.4 % 34.1-44.9 411) MEAN CORPUSCULAR VOLUME (BEAKER) 80.2 fL 79.4-94.8 (test code = 753) MEAN CORPUSCULAR HEMOGLOBIN 25.3 pg 25.6-32.2 L (BEAKER) (test code = 751) MEAN CORPUSCULAR HEMOGLOBIN CONC 31.5 GM/DL 32.2-35.5 L (BEAKER) (test code = 752) RED CELL DISTRIBUTION WIDTH 15.7 % 11.7-14.4 H (BEAKER) (test code = 412) PLATELET COUNT (BEAKER) (test 415 K/CU MM 150-450 code = 756) MEAN PLATELET VOLUME (BEAKER) 9.0 fL 9.4-12.3 L (test code = 754) NUCLEATED RED BLOOD CELLS 0 /100 WBC 0-0 (BEAKER) (test code = 413) NEUTROPHILS RELATIVE PERCENT 79 % (BEAKER) (test code = 429) LYMPHOCYTES RELATIVE PERCENT 11 % (BEAKER) (test code = 430) MONOCYTES RELATIVE PERCENT 7 % (BEAKER) (test code = 431) EOSINOPHILS RELATIVE PERCENT 2 % (BEAKER) (test code = 432) BASOPHILS RELATIVE PERCENT 0 % (BEAKER) (test code = 437) NEUTROPHILS ABSOLUTE COUNT 16.22 K/ L 1.56-6.13 H (BEAKER) (test code = 670) LYMPHOCYTES ABSOLUTE COUNT 2.31 K/ L 1.18-3.74 (BEAKER) (test code = 414) MONOCYTES ABSOLUTE COUNT (BEAKER) 1.46 K/ L 0.24-0.36 H (test code = 415) EOSINOPHILS ABSOLUTE COUNT 0.37 K/ L 0.04-0.36 H (BEAKER) (test code = 416) BASOPHILS ABSOLUTE COUNT (BEAKER) 0.03 K/ L 0.01-0.08 (test code = 417) IMMATURE GRANULOCYTES-RELATIVE 1 % 0-1 PERCENT (BEAKER) (test code = 2801) POCT-GLUCOSE [id number] 21:28:00 Test Item Value Reference Range Interpretation Comments POC-GLUCOSE METER 170 mg/dL 70-110 H TESTED AT [facility] 6720 (BEAKER) (test code = SHELLY [place] 1538) [id number] POCT-GLUCOSE [id number] 18:02:00 Test Item Value Reference Range Interpretation Comments POC-GLUCOSE METER 180 mg/dL 70-110 H TESTED AT [facility] 67 ([facility]) (test code = SHELLY [place] 1538) [address] POCT-GLUCOSE [id number] 13:34:00 Test Item Value Reference Range Interpretation Comments POC-GLUCOSE METER 235 mg/dL 70-110 H TESTED AT [place] [address] ([facility]) (test code = SHELLY [place] 1538) [id number] MR, BRAIN, [id number] 12:29:00FINAL REPORT MRI Brain with and without [...] likely reactive in nature. Signed: Daysi Woodward MDRnatachaort Verified Date/Time: 03/08/2018 12:29:16 Reading Location: [address] Neuro Reading Room W/PLT COUNT & AUTO [id number] 07:59:00 Test Item Value Reference Range Interpretation Comments WHITE BLOOD CELL COUNT (BEAKER) 25.4 K/ L 3.5-10.5 H (test code = 775) RED BLOOD CELL COUNT (BEAKER) 4.74 M/ L 3.93-5.22 (test code = 761) HEMOGLOBIN (BEAKER) (test code = 12.2 GM/DL 11.2-15.7 410) HEMATOCRIT (BEAKER) (test code = 37.4 % 34.1-44.9 411) MEAN CORPUSCULAR VOLUME (BEAKER) 78.9 fL 79.4-94.8 L (test code = 753) MEAN CORPUSCULAR HEMOGLOBIN 25.7 pg 25.6-32.2 (BEAKER) (test code = 751) MEAN CORPUSCULAR HEMOGLOBIN CONC 32.6 GM/DL 32.2-35.5 (BEAKER) (test code = 752) RED CELL DISTRIBUTION WIDTH 15.6 % 11.7-14.4 H (BEAKER) (test code = 412) PLATELET COUNT (BEAKER) (test 471 K/CU MM 150-450 H code = 756) MEAN PLATELET VOLUME (BEAKER) 9.1 fL 9.4-12.3 L (test code = 754) NUCLEATED RED BLOOD CELLS 0 /100 WBC 0-0 (BEAKER) (test code = 413) (CELLAVISION MANUAL DIFF)2018-03-08 07:59:00 Test Item Value Reference Range Interpretation Comments NEUTROPHILS - REL 91 % (CELLAVISION)(BEAKER) (test code = 2816) LYMPHOCYTES - REL 6 % (CELLAVISION)(BEAKER) (test code = 2817) MONOCYTES - REL 1 % (CELLAVISION)(BEAKER) (test code = 2818) BANDS - REL (CELLAVISION)(BEAKER) 2 % 0-10 (test code = 2826) NEUTROPHILS - ABS 23.11 K/ul 1.56-6.13 H (CELLAVISION)(BEAKER) (test code = 2830) LYMPHOCYTES - ABS 1.52 K/ul 1.18-3.74 (CELLAVISION)(BEAKER) (test code = 2831) MONOCYTES - ABS 0.25 K/uL 0.24-0.36 (CELLAVISION)(BEAKER) (test code = 2832) BANDS - ABS (CELLAVISION)(BEAKER) 0.51 K/uL 0.00-0.80 (test code = 2840) TOTAL COUNTED (BEAKER) (test code 100 = 1351) WBC MORPHOLOGY (BEAKER) (test Normal code = 487) PLT MORPHOLOGY (BEAKER) (test Normal code = 486) POLYCHROMATOPHILLIC RBCS(BEAKER) 3+ many (test code = 478) ANISOCYTOSIS (BEAKER) (test code 2+ moderate = 961) MICROCYTES (BEAKER) (test code = 1+ few 965) ARTIFACT (CELLAVISION)(BEAKER) Present (test code = 3432) PLATELET CONCENTRATION Increased (CELLAVISION)(BEAKER) (test code = 3438) Received comment: User comments: Slide comments:BASIC METABOLIC [id number] 04:18:00 Test Item Value Reference Range Interpretation Comments SODIUM (BEAKER) 133 meq/L 136-145 L (test code = 381) POTASSIUM (BEAKER) 4.3 meq/L 3.5-5.1 (test code = 379) CHLORIDE (BEAKER) 101 meq/L 98-107 (test code = 382) CO2 (BEAKER) (test 25 meq/L 22-29 code = 355) BLOOD UREA NITROGEN 17 mg/dL 7-21 (BEAKER) (test code = 354) CREATININE (BEAKER) 0.65 mg/dL 0.57-1.25 (test code = 358) GLUCOSE RANDOM 121 mg/dL 70-105 H (BEAKER) (test code = 652) CALCIUM (BEAKER) 9.2 mg/dL 8.4-10.2 (test code = 697) EGFR (BEAKER) (test mL/min/1.73 INSUFFIC IENT CLINICAL code = 1092) sq m DATA TO CALCULA TE ESTIMATED GFR. POCT-GLUCOSE [id number] 23:21:00 Test Item Value Reference Range Interpretation Comments POC-GLUCOSE METER 122 mg/dL 70-110 H TESTED AT [facility] 6720 (BEAKER) (test code = SHELLY [place] 1538) [address] POCT-GLUCOSE [id number] 22:02:00 Test Item Value Reference Range Interpretation Comments POC-GLUCOSE METER 122 mg/dL 70-110 H TESTED AT [place] [address] [facility] (test code = SHELLY Bill [place] 1538) [address] POCT-GLUCOSE [id number] 18:27:00 Test Item Value Reference Range Interpretation Comments POC-GLUCOSE METER 120 mg/dL 70-110 H TESTED AT [place] [address] ([facility] (test code = SHELLY Bill [place] 1538) [address] POCT-GLUCOSE [id number] 12:26:00 Test Item Value Reference Range Interpretation Comments POC-GLUCOSE METER 130 mg/dL 70-110 H TESTED AT [place] [address] (BEAKER) (test code = SHELLY Bill [place] 1538) [address] POCT-GLUCOSE [id number] 08:44:00 Test Item Value Reference Range Interpretation Comments POC-GLUCOSE METER 141 mg/dL 70-110 H TESTED AT [place] [address] [facility] (test code = SHELLY Bill [place] 1538) [address] CBC W/PLT COUNT & AUTO [id number] 07:37:00 Test Item Value Reference Range Interpretation Comments WHITE BLOOD CELL COUNT (BEAKER) 27.9 K/ L 3.5-10.5 H (test code = 775) RED BLOOD CELL COUNT (BEAKER) 4.44 M/ L 3.93-5.22 (test code = 761) HEMOGLOBIN (BEAKER) (test code = 11.3 GM/DL 11.2-15.7 410) HEMATOCRIT (BEAKER) (test code = 35.2 % 34.1-44.9 411) MEAN CORPUSCULAR VOLUME (BEAKER) 79.3 fL 79.4-94.8 L (test code = 753) MEAN CORPUSCULAR HEMOGLOBIN 25.5 pg 25.6-32.2 L (BEAKER) (test code = 751) MEAN CORPUSCULAR HEMOGLOBIN CONC 32.1 GM/DL 32.2-35.5 L (BEAKER) (test code = 752) RED CELL DISTRIBUTION WIDTH 15.2 % 11.7-14.4 H (BEAKER) (test code = 412) PLATELET COUNT (BEAKER) (test 491 K/CU MM 150-450 H code = 756) MEAN PLATELET VOLUME (BEAKER) 9.0 fL 9.4-12.3 L (test code = 754) NUCLEATED RED BLOOD CELLS 0 /100 WBC 0-0 (BEAKER) (test code = 413) (CELLAVISION MANUAL DIFF)2018-03-07 07:37:00 Test Item Value Reference Range Interpretation Comments NEUTROPHILS - REL 91 % (CELLAVISION)(BEAKER) (test code = 2816) LYMPHOCYTES - REL 3 % (CELLAVISION)(BEAKER) (test code = 2817) MONOCYTES - REL 5 % (CELLAVISION)(BEAKER) (test code = 2818) ATYPICAL LYMPHOCYTES - REL 1 % 0-0 H (CELLAVISION)(BEAKER) (test code = 2829) NEUTROPHILS - ABS 25.39 K/ul 1.56-6.13 H (CELLAVISION)(BEAKER) (test code = 2830) LYMPHOCYTES - ABS 0.84 K/ul 1.18-3.74 L (CELLAVISION)(BEAKER) (test code = 2831) MONOCYTES - ABS 1.40 K/uL 0.24-0.36 H (CELLAVISION)(BEAKER) (test code = 2832) ATYPICAL LYMPHOCYTES - ABS 0.28 K/uL 0.00-0.00 H (CELLAVISION)(BEAKER) (test code = 2858) TOTAL COUNTED (BEAKER) (test code 100 = 1351) WBC MORPHOLOGY (BEAKER) (test code Normal = 487) LARGE PLT(BEAKER) (test code = Present 2156) POLYCHROMATOPHILLIC RBCS(BEAKER) 1+ few (test code = 478) ARTIFACT (CELLAVISION)(BEAKER) Present (test code = 3432) PLATELET CONCENTRATION Increased (CELLAVISION)(BEAKER) (test code = 3438) Received comment: User comments: Slide comments:BASIC METABOLIC [id number] 04:29:00 Test Item Value Reference Range Interpretation Comments SODIUM (BEAKER) 134 meq/L 136-145 L (test code = 381) POTASSIUM (BEAKER) 4.3 meq/L 3.5-5.1 (test code = 379) CHLORIDE (BEAKER) 104 meq/L 98-107 (test code = 382) CO2 (BEAKER) (test 23 meq/L 22-29 code = 355) BLOOD UREA NITROGEN 18 mg/dL 7-21 ([facility]) (test code = 354) CREATININE (AKER) 0.63 mg/dL 0.57-1.25 (test code = 358) GLUCOSE RANDOM 145 mg/dL 70-105 H ([facility]) (test code = 652) CALCIUM (BEAKER) 8.8 mg/dL 8.4-10.2 (test code = 697) EGFR ([facility]) (test mL/min/1.73 INSUFFIC IENT CLINICAL code = 1092) sq m DATA TO CALCULA TE ESTIMATED GFR. [id number] 04:28:00 Test Item Value Reference Range Interpretation Comments PHOSPHORUS (BEAKER) (test code = 3.4 mg/dL 2.3-4.7 604) [id number] 04:28:00 Test Item Value Reference Range Interpretation Comments MAGNESIUM ([facility] (test code = 1.9 mg/dL 1.6-2.6 627) POCT-GLUCOSE [id number] 22:29:00 Test Item Value Reference Range Interpretation Comments POC-GLUCOSE METER 147 mg/dL 70-110 H TESTED AT [place] [address] ([facility]) (test code = [facility] 1538) [id number] POCT-GLUCOSE [id number] 12:29:00 Test Item Value Reference Range Interpretation Comments POC-GLUCOSE METER 87 mg/dL 70-110 TESTED AT [place] [address] ([facility]) (test code = [facility] [address] 1538) POCT-GLUCOSE [id number] 08:21:00 Test Item Value Reference Range Interpretation Comments POC-GLUCOSE METER 122 mg/dL 70-110 H TESTED AT [place] [address] ([facility]) (test code = [facility] 1538) [address] [id number] 05:32:00 Test Item Value Reference Range Interpretation Comments PROTIME (BEAKER) (test code = 13.1 seconds 11.7-14.7 759) INR ([facility]) (test code = 370) 1.0 <=5.9 PARTIAL THROMBOPLASTIN TIME 24.2 seconds 22.5-36.0 ([facility]) (test code = 760) RECOMMENDED COUMADIN/WARFARIN INR THERAPY RANGESSTANDARD DOSE: 2.0 - 3.0 Includes: PROPHYLAXIS forvenous thrombosis, systemic embolization; TREATMENT for venous thrombosis and/or pulmonary embolus.HIGH RISK: Target INR is 2.5-3.5 for patients with mechanical heart valves.POCT-GLUCOSE [id number] 05:17:00 Test Item Value Reference Range Interpretation Comments POC-GLUCOSE METER 127 mg/dL 70-110 H TESTED AT [facility] 67[address] (BEAKER) (test code = [place] 1538) [address] BASIC METABOLIC [id number] 05:16:00 Test Item Value Reference Range Interpretation Comments SODIUM (BEAKER) 135 meq/L 136-145 L (test code = 381) POTASSIUM (BEAKER) 4.1 meq/L 3.5-5.1 (test code = 379) CHLORIDE (BEAKER) 103 meq/L 98-107 (test code = 382) CO2 (BEAKER) (test 22 meq/L 22-29 code = 355) BLOOD UREA NITROGEN 19 mg/dL 7-21 (BEAKER) (test code = 354) CREATININE (BEAKER) 0.69 mg/dL 0.57-1.25 (test code = 358) GLUCOSE RANDOM 131 mg/dL 70-105 H (BEAKER) (test code = 652) CALCIUM (BEAKER) 9.3 mg/dL 8.4-10.2 (test code = 697) EGFR (BEAKER) (test mL/min/1.73 INSUFFIC IENT CLINICAL code = 1092) sq m DATA TO CALCULA TE ESTIMATED GFR. CBC W/PLT COUNT & AUTO [id number] 04:56:00 Test Item Value Reference Range Interpretation Comments WHITE BLOOD CELL COUNT (BEAKER) 22.3 K/ L 3.5-10.5 H (test code = 775) RED BLOOD CELL COUNT (BEAKER) 4.71 M/ L 3.93-5.22 (test code = 761) HEMOGLOBIN (BEAKER) (test code = 11.7 GM/DL 11.2-15.7 410) HEMATOCRIT (BEAKER) (test code = 37.1 % 34.1-44.9 411) MEAN CORPUSCULAR VOLUME (BEAKER) 78.8 fL 79.4-94.8 L (test code = 753) MEAN CORPUSCULAR HEMOGLOBIN 24.8 pg 25.6-32.2 L (BEAKER) (test code = 751) MEAN CORPUSCULAR HEMOGLOBIN CONC 31.5 GM/DL 32.2-35.5 L (BEAKER) (test code = 752) RED CELL DISTRIBUTION WIDTH 15.0 % 11.7-14.4 H (BEAKER) (test code = 412) PLATELET COUNT (BEAKER) (test 529 K/CU MM 150-450 H code = 756) MEAN PLATELET VOLUME (BEAKER) 8.9 fL 9.4-12.3 L (test code = 754) NUCLEATED RED BLOOD CELLS 0 /100 WBC 0-0 (BEAKER) (test code = 413) NEUTROPHILS RELATIVE PERCENT 84 % (BEAKER) (test code = 429) LYMPHOCYTES RELATIVE PERCENT 9 % (BEAKER) (test code = 430) MONOCYTES RELATIVE PERCENT 4 % (BEAKER) (test code = 431) EOSINOPHILS RELATIVE PERCENT 1 % (BEAKER) (test code = 432) BASOPHILS RELATIVE PERCENT 0 % (BEAKER) (test code = 437) NEUTROPHILS ABSOLUTE COUNT 18.70 K/ L 1.56-6.13 H (BEAKER) (test code = 670) LYMPHOCYTES ABSOLUTE COUNT 2.04 K/ L 1.18-3.74 (BEAKER) (test code = 414) MONOCYTES ABSOLUTE COUNT (BEAKER) 0.99 K/ L 0.24-0.36 H (test code = 415) EOSINOPHILS ABSOLUTE COUNT 0.12 K/ L 0.04-0.36 (BEAKER) (test code = 416) BASOPHILS ABSOLUTE COUNT (BEAKER) 0.05 K/ L 0.01-0.08 (test code = 417) IMMATURE GRANULOCYTES-RELATIVE 2 % 0-1 H PERCENT (BEAKER) (test code = 2801) POCT-GLUCOSE [id number] 22:07:00 Test Item Value Reference Range Interpretation Comments POC-GLUCOSE METER 157 mg/dL 70-110 H TESTED AT [facility] 67 [facility] (test code = SHELLY Bill [facility] 1538) [address] POCT-GLUCOSE [id number] 16:55:00 Test Item Value Reference Range Interpretation Comments POC-GLUCOSE METER 146 mg/dL 70-110 H TESTED AT [facility] 6720 ([facility] (test code = SHELLY Bill [facility] 1538) [address] TISSUE [id number] 15:23:00Surgical Pathology Report Case: [id number] Authorizing Provider: Robert Tirado MD Collected: 03/04/2018916 Ordering Location: [facility] Received: 03/04/2018 09 SERVICES Pathologist: Terry Stanford MD Specimens: A) - Lung, Right Upper Lobe, Right upper lobe endobronchial biopsy B) -Lung, Right Upper Lobe, EBBX. Reflex genetic markers. PART A RIGHT UPPER LOBE LUNG, ENDOBRONCHIAL BIOPSY:ADENOCARCINOMA.SEE DIAGNOSTIC COMMENT.PART B RIGHT UPPER LOBE LUNG, ENDOBRONCHIAL BIOPSY:ADENOCARCINOMA.SEE DIAGNOSTIC COMMENT. Signing Pathologist Direct Phone Line:[phone] signed by Terry Stanford MD on 03/05/2018 at 3:23 PMImmunohistochemical studies performed on block B1 demonstrate the tumor cells to be positive for TTF1 and Napsin A. They are negative for ER and PAX8. The immunoprofile is most compatible with an adenocarcinoma of pulmonary origin.19755f0, 81097, 92668i3, 60264T. Right upper lobe endobronchial biopsy. B. Right [...] cm in aggregate submitted entirely in B1. CG/ew A1FS, LUNG, RIGHT UPPER LOBE, BIOPSY: - NONSMALL CELL CARCINOMA, DEFERRED FOR INTERPRETATION TO PERMANENT SECTIONING ANDIMMUNO STAINSPERFORMED. The interpretation of this case included the use of immunohistochemistry or special stains. BLOCK B1- TTF1, NAPSIN A, ER, ARB8Rohclzzbzrmcpsgmufxx technical testing was performed at [facility], Pathology Laboratory where it was [...] complexity clinical laboratory testing.FINE NEEDLE ASPIRATE BY [id number] 12:41:00Medical Cytology Report Case: [id number] Authorizing Provider: Robert Tirado MD Collected: 03/04/2018 1023 Ordering Location: [address] Received: 03/04/2018 1244 Service Pathologist: Ben Vila MD Specimen: Lymph Node, Interlobar, Right, Station 11R LYMPH NODE, INTERLOBAR RIGHT, STATION 11R EBUS FNA BY CLINICIAN (CYTOSPINS OF ASPIRATE): - NEGATIVE FOR MALIGNANCY - LYMPHOCYTES PRESENT Signing Pathologist Direct Phone Line: [phone] signed by Ben Garcia MD on 03/05/2018 at 12:41 PMPlease also see surgical pathology report [id number] and cytopathology reports [id number], 3646, 3647 and 3648. [id number] massLYMPH NODE, INTERLOBAR RIGHT, STATION 11R EBUS FNA40 mls in cytorich red; 2 cytospinsCollected: [id number]: [id number] interpretation of this case included the use of immunohistochemistry or special stains. Immunohistochemistry technical testing was performed at [facility], Pathology Laboratory where it was [...] certified under the Clinical Laboratory Improvement Amendments [id number] (CLIA-88) as qualified to perform high complexity clinical laboratory testing.[facility], Department of Pathology, [address] [place] [address], [facility], [facility], [address] [place] [address], [facility]vv[facility], Department of Pathology, [address] [place] [address], MBLE NEEDLE ASPIRATE BY [id number] 12:40:00Medical Cytology Report Case: [id number] Authorizing Provider: Robert Tirado MD Collected: 03/04/2018 1008 Ordering Location: [address] Received: 03/04/2018 1244 Service Pathologist: Ben Vila MD Specimen: Lymph Node, Lower Paratracheal, Right, Station 4R LYMPH NODE, LOWER PARATRACHEAL, RIGHT, STATION 4R EBUS FNA BY CLINICIAN (CYTOSPINS AND CELL BLOCK OF ASPIRATE): - NEGATIVE FOR MALIGNANCY Signing Pathologist Direct Phone Line: [phone] signed by Ben Vila MD on 03/05/2018 at 12:40 PMSmears and cell block show good sampling of anthracotic lymph node without granuloma or neoplasm.Please also see surgical pathology report [id number] and cytopathology reports [id number], 3646, 3647 and 3649. 73441, 54131Zvrw massLYMPH NODE, LOWER PARATRACHEAL, RIGHT, STATION 4R EBUS FNA40 mls in cytorich red; 2 cytospins, cell blockCollected: [id number]: [id number] interpretation of this case included the use of immunohistochemistry or special stains. Immunohistochemistry technical testing was performed at [facility], Pathology Laboratory where it was [...] qualified to perform high complexity clinical laboratory testing.[facility], Department of Pathology, [address] [place] [address], [facility], Department of [facility], [address] [place] [address], [facility], Department of [facility], [address] [place] [address], HQRZ NEEDLE ASPIRATE BY [id number] 12:38:00Medical Cytology Report Case: [id number] Authorizing Provider: Robert Tirado MD Collected: 03/04/2018 1002 Ordering Location: [address] Received: 03/04/2018 1244 Service Pathologist: Bne Vila MD Specimen: Lymph Node, Subcarinal, Station 7 LYMPH NODE, SUBCARINAL, STATION 7 EBUS FNA BY CLINICIAN (CYTOSPINS AND CELL BLOCK OF ASPIRATE): - NEGATIVE FOR MALIGNANCY Signing Pathologist Direct Phone Line: [phone] signed by Ben Vila MD on 03/05/2018 at 12:38 PMSmears and cell block show good sampling of anthracotic lymph nodewithout granuloma or neoplasm.Please also see surgical pathology report [id number] and cytopathology reports [id number], 3646, 3648 and 3649. 19211, 32552Uawc massLYMPH NODE, SUBCARINAL, STATION 7 FNAPrepared cell block(A2) and 2 cytospins from 40 ml cytorich red fixative specimen Collected: [id number]: [id number] interpretation of this case included the use of immunohistochemistry or special stains.Immunohistochemistry technical testing was performed at [facility], Pathology L aboratory where it was developed and its performance [...] qualified to perform high complexity clinical laboratory testing.[facility], Department of Pathology, [address] [place] [address], [facility], Department of [facility], [address] [place] [address], [facility]cgjxeGreat[facility], [facility] of [facility], [address] [place] [address], VZHO NEEDLE ASPIRATE BY [id number] 12:35:00Medical Cytology Report Case: [id number] Authorizing Provider: Robert Tirado MD Collected: 03/04/2018 1001 Ordering Location: [address] Received: 03/04/2018 1244 Service Pathologist: Ben Vila MD Specimen: Lymph Node, Lower Paratracheal, Left, Station 4L LYMPH NODE, LOWER PARATRACHEAL, LEFT, STATION 4L, FNA BY CLINICIAN (CYTOSPINS OF ASPIRATE): - NEGATIVE FOR MALIGNANCY PREDOMINANTLY BRONCHIAL EPITHELIAL CELLS Signing Pathologist Direct Phone Line: [phone] signed by Ben Vila MD on 03/05/2018 at 12:35 PMPlease also see surgical pathology report [id number] and cytopathology reports [id number], 3647, 3648 and 3649. 31745Fhlv massLYMPH NODE, LOWER PARATRACHEAL, LEFT, STATION 4L FNAPrepared 2 cytospins from 40 ml cytorich red fixative sampleCollected: [id number]: [id number] interpretation of this case included the use of immunohistochemistry or special stains. Immunohistochemistry technical testing was performed at [facility], Pathology Laboratory where it was [...] qualified to perform high complexity clinical laboratory testing.[facility], Department of Pathology, [address] [place], [place] [id number], MvgqajGreater [facility], Department of Patho logy, [address] [place] [address], [facility]yltqGreat[facility], Department of [facility]ology, [address] [place] [address], XXUS-GLUCOSE [id number] 12:34:00 Test Item Value Reference Range Interpretation Comments POC-GLUCOSE METER 119 mg/dL 70-110 H TESTED AT [place] [address] (NEENA) (test code = SHELLY Bill [facility] 1538) [address] FINE NEEDLE ASPIRATE BY [id number] 12:34:00Medical Cytology Report Case: [id number] Authorizing Provider: Robert Tirdao MD Collected: 03/04/2018 1001 Ordering Location: [address] Received: 03/04/2018 1244 Service Pathologist: Ben Vila MD Specimen: Lymph Node, Interlobar, Left, Station 11L LYMPH NODE, INTERLOBAR, LEFT, STATION 11L, FNA BY CLINICIAN (CYTOSPINS AND CELL BLOCK OF ASPIRATE): - NEGATIVE FOR MALIGNANCY Signing Pathologist Direct Phone Line: [phone] signed by Ben Vila MD on 03/05/2018 at 12:34 PMSmears and cell block show good sampling of anthracotic lymph node without granuloma or neoplasm.Please also see surgical pathology report [id number] and cytopathology reports [id number], 3647, 3648 and 3649. 59279, 76469Safx massLYMPH NODE, INTERLOBAR, LEFT, [id number] FNAPrepared cell block(A2) and 2 cytospins from 45 ml cytorich red fixative sampleCollected: [id number]: [id number] interpretation of this case included the use of immunohistochemistry or special stains. Immunohistochemistry technical testing was performed at [facility], Pathology Laboratory where it was [...] qualified to perform high complexity clinical laboratory testing.[facility], Department of Pathology, [address] [place] [address], [facility]mkzdvGreat[facility], Department of Pathology, [address] [place] [address], [facility]vntyGreat[facility], Department of Pathology, [address] [place] [address], AMNZ-GLUCOSE [id number] 08:25:00 Test Item Value Reference Range Interpretation Comments POC-GLUCOSE METER 114 mg/dL 70-110 H TESTED AT [facility] 6720 (BEAKER) (test code = SHELLY [place] 1538) [address] BASIC METABOLIC [id number] 05:45:00 Test Item Value Reference Range Interpretation Comments SODIUM (BEAKER) 136 meq/L 136-145 (test code = 381) POTASSIUM (BEAKER) 4.5 meq/L 3.5-5.1 Specimen slightly (test code = 379) hemolyzed CHLORIDE (BEAKER) 104 meq/L 98-107 (test code = 382) CO2 (BEAKER) (test 24 meq/L 22-29 code = 355) BLOOD UREA NITROGEN 18 mg/dL 7-21 (BEAKER) (test code = 354) CREATININE (BEAKER) 0.72 mg/dL 0.57-1.25 Specimen slightly (test code = 358) hemolyzed GLUCOSE RANDOM 126 mg/dL 70-105 H (BEAKER) (test code = 652) CALCIUM (BEAKER) 9.8 mg/dL 8.4-10.2 (test code = 697) EGFR (BEAKER) (test mL/min/1.73 INSUFFIC IENT CLINICAL code = 1092) sq m DATA TO CALCULA TE ESTIMATED GFR. CBC W/PLT COUNT & AUTO [id number] 05:42:00 Test Item Value Reference Range Interpretation Comments WHITE BLOOD CELL COUNT (BEAKER) 22.5 K/ L 3.5-10.5 H (test code = 775) RED BLOOD CELL COUNT (BEAKER) 5.03 M/ L 3.93-5.22 (test code = 761) HEMOGLOBIN (BEAKER) (test code = 12.6 GM/DL 11.2-15.7 410) HEMATOCRIT (BEAKER) (test code = 40.7 % 34.1-44.9 411) MEAN CORPUSCULAR VOLUME (BEAKER) 80.9 fL 79.4-94.8 (test code = 753) MEAN CORPUSCULAR HEMOGLOBIN 25.0 pg 25.6-32.2 L (BEAKER) (test code = 751) MEAN CORPUSCULAR HEMOGLOBIN CONC 31.0 GM/DL 32.2-35.5 L (BEAKER) (test code = 752) RED CELL DISTRIBUTION WIDTH 15.0 % 11.7-14.4 H (BEAKER) (test code = 412) PLATELET COUNT (BEAKER) (test 543 K/CU MM 150-450 H code = 756) MEAN PLATELET VOLUME (BEAKER) 9.5 fL 9.4-12.3 (test code = 754) NUCLEATED RED BLOOD CELLS 0 /100 WBC 0-0 (BEAKER) (test code = 413) NEUTROPHILS RELATIVE PERCENT 86 % (BEAKER) (test code = 429) LYMPHOCYTES RELATIVE PERCENT 8 % (BEAKER) (test code = 430) MONOCYTES RELATIVE PERCENT 4 % (BEAKER) (test code = 431) EOSINOPHILS RELATIVE PERCENT 0 % (BEAKER) (test code = 432) BASOPHILS RELATIVE PERCENT 0 % (BEAKER) (test code = 437) NEUTROPHILS ABSOLUTE COUNT 19.38 K/ L 1.56-6.13 H (BEAKER) (test code = 670) LYMPHOCYTES ABSOLUTE COUNT 1.81 K/ L 1.18-3.74 (BEAKER) (test code = 414) MONOCYTES ABSOLUTE COUNT (BEAKER) 0.99 K/ L 0.24-0.36 H (test code = 415) EOSINOPHILS ABSOLUTE COUNT 0.05 K/ L 0.04-0.36 (BEAKER) (test code = 416) BASOPHILS ABSOLUTE COUNT (BEAKER) 0.04 K/ L 0.01-0.08 (test code = 417) IMMATURE GRANULOCYTES-RELATIVE 1 % 0-1 PERCENT (BEAKER) (test code = 2801) BLOOD [id number] 23:01:00 Test Item Value Reference Range Interpretation Comments CULTURE (BEAKER) (test No growth in 5 days code = 1095) POCT-GLUCOSE [id number] 20:32:00 Test Item Value Reference Range Interpretation Comments POC-GLUCOSE METER 122 mg/dL 70-110 H TESTED AT [facility] 6720 ([facility]) (test code = SHELLY [place] 1538) [address] POCT-GLUCOSE [id number] 17:53:00 Test Item Value Reference Range Interpretation Comments POC-GLUCOSE METER 199 mg/dL 70-110 H TESTED AT [facility] 6720 ([facility]) (test code = SHELLY [place] 1538) [address] EBUS FNA [id number] 14:00:00 Test Item Value Reference Range Interpretation Comments CYTOLOGY RESULT POINTER See Separate Report (BEAKER) (test code = 2629) EBUS FNA [id number] 14:00:00 Test Item Value Reference Range Interpretation Comments CYTOLOGY RESULT POINTER See Separate Report (BEAKER) (test code = 2629) EBUS FNA [id number] 14:00:00 Test Item Value Reference Range Interpretation Comments CYTOLOGY RESULT POINTER See Separate Report (BEAKER) (test code = 2629) EBUS FNA [id number] 14:00:00 Test Item Value Reference Range Interpretation Comments CYTOLOGY RESULT POINTER See Separate Report (BEAKER) (test code = 2629) EBUS FNA [id number] 14:00:00 Test Item Value Reference Range Interpretation Comments CYTOLOGY RESULT POINTER See Separate Report (AKER) (test code = 2629) POCT-GLUCOSE [id number] 12:06:00 Test Item Value Reference Range Interpretation Comments POC-GLUCOSE METER 114 mg/dL 70-110 H TESTED AT [place] [address] ([facility]) (test code = SHELLY [place] 1538) [address] BLOOD [id number] 10:00:00 Test Item Value Reference Range Interpretation Comments CULTURE ([facility]) (test No growth in 5 days code = 1095) POCT-GLUCOSE [id number] 08:22:00 Test Item Value Reference Range Interpretation Comments POC-GLUCOSE METER 120 mg/dL 70-110 H TESTED AT [place] [address] ([facility]) (test code = SHELLY [place] 1538) [address] [id number] 06:39:00 Test Item Value Reference Range Interpretation Comments PARTIAL THROMBOPLASTIN TIME 25.2 seconds 22.5-36.0 ([facility]) (test code = 760) PROTHROMBIN [id number] 06:38:00 Test Item Value Reference Range Interpretation Comments PROTIME ([facility]) (test code = 13.6 seconds 11.7-14.7 759) INR ([facility]) (test code = 370) 1.0 <=5.9 RECOMMENDED COUMADIN/WARFARIN INR THERAPY RANGESSTANDARD DOSE: 2.0 - 3.0 Includes: PROPHYLAXIS forvenous thrombosis, systemic embolization; TREATMENT for venous thrombosis and/or pulmonary embolus.HIGH RISK: Target INR is 2.5-3.5 for patients with mechanical heart valves.BASIC METABOLIC [id number] 06:38:00 Test Item Value Reference Range Interpretation Comments SODIUM (BEAKER) 136 meq/L 136-145 (test code = 381) POTASSIUM (BEAKER) 4.4 meq/L 3.5-5.1 (test code = 379) CHLORIDE (BEAKER) 105 meq/L 98-107 (test code = 382) CO2 (BEAKER) (test 23 meq/L 22-29 code = 355) BLOOD UREA NITROGEN 19 mg/dL 7-21 (BEAKER) (test code = 354) CREATININE (BEAKER) 0.66 mg/dL 0.57-1.25 (test code = 358) GLUCOSE RANDOM 120 mg/dL 70-105 H (BEAKER) (test code = 652) CALCIUM (BEAKER) 9.9 mg/dL 8.4-10.2 (test code = 697) EGFR (BEAKER) (test mL/min/1.73 INSUFFIC IENT CLINICAL code = 1092) sq m DATA TO CALCULA TE ESTIMATED GFR. CBC W/PLT COUNT & AUTO [id number] 06:19:00 Test Item Value Reference Range Interpretation Comments WHITE BLOOD CELL COUNT (BEAKER) 22.5 K/ L 3.5-10.5 H (test code = 775) RED BLOOD CELL COUNT (BEAKER) 4.92 M/ L 3.93-5.22 (test code = 761) HEMOGLOBIN (BEAKER) (test code = 12.4 GM/DL 11.2-15.7 410) HEMATOCRIT (BEAKER) (test code = 39.7 % 34.1-44.9 411) MEAN CORPUSCULAR VOLUME (BEAKER) 80.7 fL 79.4-94.8 (test code = 753) MEAN CORPUSCULAR HEMOGLOBIN 25.2 pg 25.6-32.2 L (BEAKER) (test code = 751) MEAN CORPUSCULAR HEMOGLOBIN CONC 31.2 GM/DL 32.2-35.5 L (BEAKER) (test code = 752) RED CELL DISTRIBUTION WIDTH 14.6 % 11.7-14.4 H (BEAKER) (test code = 412) PLATELET COUNT (BEAKER) (test 570 K/CU MM 150-450 H code = 756) MEAN PLATELET VOLUME (BEAKER) 9.0 fL 9.4-12.3 L (test code = 754) NUCLEATED RED BLOOD CELLS 0 /100 WBC 0-0 (BEAKER) (test code = 413) NEUTROPHILS RELATIVE PERCENT 83 % (BEAKER) (test code = 429) LYMPHOCYTES RELATIVE PERCENT 11 % (BEAKER) (test code = 430) MONOCYTES RELATIVE PERCENT 5 % (BEAKER) (test code = 431) EOSINOPHILS RELATIVE PERCENT 0 % (BEAKER) (test code = 432) BASOPHILS RELATIVE PERCENT 0 % (BEAKER) (test code = 437) NEUTROPHILS ABSOLUTE COUNT 18.65 K/ L 1.56-6.13 H (BEAKER) (test code = 670) LYMPHOCYTES ABSOLUTE COUNT 2.36 K/ L 1.18-3.74 (BEAKER) (test code = 414) MONOCYTES ABSOLUTE COUNT (BEAKER) 1.01 K/ L 0.24-0.36 H (test code = 415) EOSINOPHILS ABSOLUTE COUNT 0.09 K/ L 0.04-0.36 (BEAKER) (test code = 416) BASOPHILS ABSOLUTE COUNT (BEAKER) 0.07 K/ L 0.01-0.08 (test code = 417) IMMATURE GRANULOCYTES-RELATIVE 2 % 0-1 H PERCENT (BEAKER) (test code = 2801) POCT-GLUCOSE [id number] 22:29:00 Test Item Value Reference Range Interpretation Comments POC-GLUCOSE METER 175 mg/dL 70-110 H TESTED AT [facility] 6720 ([facility]) (test code = RAFAELDARCY Bill [facility] 1538) [address] BONE AND/OR JOINT IMAGING, WHOLE [id number] 15:34:00No histologic dx yet, but brain met with lung mass.FINAL REPORT PROCEDURE: BONE SCAN, WHOLE BODY CPT CODE: 31969 INDICATION: Right lung cancer with cerebellar metastasis [...] Signed: Antoni Zimmerman MDReport Verified Date/Time: 03/03/2018 15:34:30 Reading Location: [address] Reading Room POCT-GLUCOSE [id number] 11:44:00 Test Item Value Reference Range Interpretation Comments POC-GLUCOSE METER 180 mg/dL 70-110 H TESTED AT [place] [address] ([facility] (test code = [facility] 1538) [address] POCT-GLUCOSE [id number] 08:31:00 Test Item Value Reference Range Interpretation Comments POC-GLUCOSE METER 111 mg/dL 70-110 H TESTED AT [place] [address] ([facility]) (test code = [facility] 1538) [address] CBC W/PLT COUNT & AUTO [id number] 05:37:00 Test Item Value Reference Range Interpretation Comments WHITE BLOOD CELL COUNT (BEAKER) 18.9 K/ L 3.5-10.5 H (test code = 775) RED BLOOD CELL COUNT (BEAKER) 4.58 M/ L 3.93-5.22 (test code = 761) HEMOGLOBIN (BEAKER) (test code = 11.6 GM/DL 11.2-15.7 410) HEMATOCRIT (BEAKER) (test code = 36.7 % 34.1-44.9 411) MEAN CORPUSCULAR VOLUME (BEAKER) 80.1 fL 79.4-94.8 (test code = 753) MEAN CORPUSCULAR HEMOGLOBIN 25.3 pg 25.6-32.2 L (BEAKER) (test code = 751) MEAN CORPUSCULAR HEMOGLOBIN CONC 31.6 GM/DL 32.2-35.5 L (BEAKER) (test code = 752) RED CELL DISTRIBUTION WIDTH 14.4 % 11.7-14.4 (BEAKER) (test code = 412) PLATELET COUNT (BEAKER) (test 505 K/CU MM 150-450 H code = 756) MEAN PLATELET VOLUME (BEAKER) 9.1 fL 9.4-12.3 L (test code = 754) NUCLEATED RED BLOOD CELLS 0 /100 WBC 0-0 (BEAKER) (test code = 413) NEUTROPHILS RELATIVE PERCENT 82 % (BEAKER) (test code = 429) LYMPHOCYTES RELATIVE PERCENT 11 % (BEAKER) (test code = 430) MONOCYTES RELATIVE PERCENT 5 % (BEAKER) (test code = 431) EOSINOPHILS RELATIVE PERCENT 1 % (BEAKER) (test code = 432) BASOPHILS RELATIVE PERCENT 0 % (BEAKER) (test code = 437) NEUTROPHILS ABSOLUTE COUNT 15.57 K/ L 1.56-6.13 H (BEAKER) (test code = 670) LYMPHOCYTES ABSOLUTE COUNT 2.05 K/ L 1.18-3.74 (BEAKER) (test code = 414) MONOCYTES ABSOLUTE COUNT (BEAKER) 0.92 K/ L 0.24-0.36 H (test code = 415) EOSINOPHILS ABSOLUTE COUNT 0.13 K/ L 0.04-0.36 (BEAKER) (test code = 416) BASOPHILS ABSOLUTE COUNT (BEAKER) 0.01 K/ L 0.01-0.08 (test code = 417) IMMATURE GRANULOCYTES-RELATIVE 1 % 0-1 PERCENT (BEAKER) (test code = 2801) POCT-GLUCOSE [id number] 21:27:00 Test Item Value Reference Range Interpretation Comments POC-GLUCOSE METER 202 mg/dL 70-110 H TESTED AT [place] [address] (BEAKER) (test code = [facility] Landy [facility] 1538) [address] POCT-GLUCOSE [id number] 13:34:00 Test Item Value Reference Range Interpretation Comments POC-GLUCOSE METER 94 mg/dL 70-110 TESTED AT [place] [address] (BEAKER) (test code = [facility] [address] 1538) POCT-GLUCOSE [id number] 08:43:00 Test Item Value Reference Range Interpretation Comments POC-GLUCOSE METER 118 mg/dL 70-110 H TESTED AT [place] [address] (BEAKER) (test code = [facility] 1538) [address] URINALYSIS W/ REFLEX URINE [id number] 07:40:00 Test Item Value Reference Range Interpretation Comments COLOR (BEAKER) (test code = 470) Light Yellow CLARITY (BEAKER) (test code = Hazy 469) SPECIFIC GRAVITY UA (BEAKER) 1.019 1.001-1.035 (test code = 468) PH UA (BEAKER) (test code = 467) 7.0 5.0-8.0 PROTEIN UA (BEAKER) (test code = Negative Negative 464) GLUCOSE UA (BEAKER) (test code = Negative Negative 365) KETONES UA (BEAKER) (test code = Negative Negative 371) BILIRUBIN UA (BEAKER) (test code Negative Negative = 462) BLOOD UA (BEAKER) (test code = Negative Negative 461) NITRITE UA (BEAKER) (test code = Negative Negative 465) LEUKOCYTE ESTERASE UA (BEAKER) Negative Negative (test code = 466) UROBILINOGEN UA (BEAKER) (test 0.2 mg/dL 0.2-1.0 code = 463) RBC UA (BEAKER) (test code = 2 /HPF 519) WBC UA (BEAKER) (test code = 0 /HPF 520) MUCUS (BEAKER) (test code = Rare 1574) SQUAMOUS EPITHELIAL (BEAKER) < /HPF (test code = 516) SOURCE(BEAKER) (test code = 2795) BASIC METABOLIC [id number] 07:17:00 Test Item Value Reference Range Interpretation Comments SODIUM (BEAKER) 136 meq/L 136-145 (test code = 381) POTASSIUM (BEAKER) 4.1 meq/L 3.5-5.1 (test code = 379) CHLORIDE (BEAKER) 106 meq/L 98-107 (test code = 382) CO2 (BEAKER) (test 23 meq/L 22-29 code = 355) BLOOD UREA NITROGEN 21 mg/dL 7-21 (BEAKER) (test code = 354) CREATININE (BEAKER) 0.76 mg/dL 0.57-1.25 (test code = 358) GLUCOSE RANDOM 115 mg/dL 70-105 H (BEAKER) (test code = 652) CALCIUM (BEAKER) 9.7 mg/dL 8.4-10.2 (test code = 697) EGFR (BEAKER) (test mL/min/1.73 INSUFFIC IENT CLINICAL code = 1092) sq m DATA TO CALCULA TE ESTIMATED GFR. CBC W/PLT COUNT & AUTO [id number] 06:15:00 Test Item Value Reference Range Interpretation Comments WHITE BLOOD CELL COUNT (BEAKER) 18.3 K/ L 3.5-10.5 H (test code = 775) RED BLOOD CELL COUNT (BEAKER) 4.56 M/ L 3.93-5.22 (test code = 761) HEMOGLOBIN (BEAKER) (test code = 11.3 GM/DL 11.2-15.7 410) HEMATOCRIT (BEAKER) (test code = 36.2 % 34.1-44.9 411) MEAN CORPUSCULAR VOLUME (BEAKER) 79.4 fL 79.4-94.8 (test code = 753) MEAN CORPUSCULAR HEMOGLOBIN 24.8 pg 25.6-32.2 L (BEAKER) (test code = 751) MEAN CORPUSCULAR HEMOGLOBIN CONC 31.2 GM/DL 32.2-35.5 L (BEAKER) (test code = 752) RED CELL DISTRIBUTION WIDTH 14.5 % 11.7-14.4 H (BEAKER) (test code = 412) PLATELET COUNT (BEAKER) (test 529 K/CU MM 150-450 H code = 756) MEAN PLATELET VOLUME (BEAKER) 8.9 fL 9.4-12.3 L (test code = 754) NUCLEATED RED BLOOD CELLS 0 /100 WBC 0-0 (BEAKER) (test code = 413) NEUTROPHILS RELATIVE PERCENT 85 % (BEAKER) (test code = 429) LYMPHOCYTES RELATIVE PERCENT 9 % (BEAKER) (test code = 430) MONOCYTES RELATIVE PERCENT 5 % (BEAKER) (test code = 431) EOSINOPHILS RELATIVE PERCENT 0 % (BEAKER) (test code = 432) BASOPHILS RELATIVE PERCENT 0 % (BEAKER) (test code = 437) NEUTROPHILS ABSOLUTE COUNT 15.60 K/ L 1.56-6.13 H (BEAKER) (test code = 670) LYMPHOCYTES ABSOLUTE COUNT 1.67 K/ L 1.18-3.74 (BEAKER) (test code = 414) MONOCYTES ABSOLUTE COUNT (BEAKER) 0.84 K/ L 0.24-0.36 H (test code = 415) EOSINOPHILS ABSOLUTE COUNT 0.04 K/ L 0.04-0.36 (BEAKER) (test code = 416) BASOPHILS ABSOLUTE COUNT (BEAKER) 0.03 K/ L 0.01-0.08 (test code = 417) IMMATURE GRANULOCYTES-RELATIVE 1 % 0-1 PERCENT (BEAKER) (test code = 2801) POCT-GLUCOSE [id number] 21:08:00 Test Item Value Reference Range Interpretation Comments POC-GLUCOSE METER 175 mg/dL 70-110 H TESTED AT [facility] 6720 (BEAKER) (test code = [place] 1538) [id number] POCT-GLUCOSE [id number] 17:48:00 Test Item Value Reference Range Interpretation Comments POC-GLUCOSE METER 114 mg/dL 70-110 H TESTED AT [facility] 6720 (BEAKER) (test code = [place] 1538) [address] POCT-GLUCOSE [id number] 12:27:00 Test Item Value Reference Range Interpretation Comments POC-GLUCOSE METER 119 mg/dL 70-110 H TESTED AT [facility] 6720 (BEAKER) (test code = SHELLY Bill [facility] 1538) [id number] BASIC METABOLIC [id number] 08:12:00 Test Item Value Reference Range Interpretation Comments SODIUM (BEAKER) 136 meq/L 136-145 (test code = 381) POTASSIUM (BEAKER) 4.1 meq/L 3.5-5.1 (test code = 379) CHLORIDE (BEAKER) 105 meq/L 98-107 (test code = 382) CO2 (BEAKER) (test 22 meq/L 22-29 code = 355) BLOOD UREA NITROGEN 19 mg/dL 7-21 (BEAKER) (test code = 354) CREATININE (BEAKER) 0.65 mg/dL 0.57-1.25 (test code = 358) GLUCOSE RANDOM 110 mg/dL 70-105 H (BEAKER) (test code = 652) CALCIUM (BEAKER) 9.8 mg/dL 8.4-10.2 (test code = 697) EGFR (BEAKER) (test mL/min/1.73 INSUFFIC IENT CLINICAL code = 1092) sq m DATA TO CALCULA TE ESTIMATED GFR. CBC W/PLT COUNT & AUTO [id number] 07:21:00 Test Item Value Reference Range Interpretation Comments WHITE BLOOD CELL COUNT (BEAKER) 20.8 K/ L 3.5-10.5 H (test code = 775) RED BLOOD CELL COUNT (BEAKER) 4.46 M/ L 3.93-5.22 (test code = 761) HEMOGLOBIN (BEAKER) (test code = 11.2 GM/DL 11.2-15.7 410) HEMATOCRIT (BEAKER) (test code = 35.1 % 34.1-44.9 411) MEAN CORPUSCULAR VOLUME (BEAKER) 78.7 fL 79.4-94.8 L (test code = 753) MEAN CORPUSCULAR HEMOGLOBIN 25.1 pg 25.6-32.2 L (BEAKER) (test code = 751) MEAN CORPUSCULAR HEMOGLOBIN CONC 31.9 GM/DL 32.2-35.5 L (BEAKER) (test code = 752) RED CELL DISTRIBUTION WIDTH 14.2 % 11.7-14.4 (BEAKER) (test code = 412) PLATELET COUNT (BEAKER) (test 549 K/CU MM 150-450 H code = 756) MEAN PLATELET VOLUME (BEAKER) 9.0 fL 9.4-12.3 L (test code = 754) NUCLEATED RED BLOOD CELLS 0 /100 WBC 0-0 (BEAKER) (test code = 413) NEUTROPHILS RELATIVE PERCENT 86 % (BEAKER) (test code = 429) LYMPHOCYTES RELATIVE PERCENT 9 % (BEAKER) (test code = 430) MONOCYTES RELATIVE PERCENT 4 % (BEAKER) (test code = 431) EOSINOPHILS RELATIVE PERCENT 0 % (BEAKER) (test code = 432) BASOPHILS RELATIVE PERCENT 0 % (BEAKER) (test code = 437) NEUTROPHILS ABSOLUTE COUNT 17.91 K/ L 1.56-6.13 H (BEAKER) (test code = 670) LYMPHOCYTES ABSOLUTE COUNT 1.79 K/ L 1.18-3.74 (BEAKER) (test code = 414) MONOCYTES ABSOLUTE COUNT (BEAKER) 0.81 K/ L 0.24-0.36 H (test code = 415) EOSINOPHILS ABSOLUTE COUNT 0.03 K/ L 0.04-0.36 L (BEAKER) (test code = 416) BASOPHILS ABSOLUTE COUNT (BEAKER) 0.04 K/ L 0.01-0.08 (test code = 417) IMMATURE GRANULOCYTES-RELATIVE 1 % 0-1 PERCENT (BEAKER) (test code = 2801) POCT-GLUCOSE [id number] 06:08:00 Test Item Value Reference Range Interpretation Comments POC-GLUCOSE METER 113 mg/dL 70-110 H TESTED AT [facility] 6720 (BEAKER) (test code = SHELLY [place] 1538) [id number] POCT-GLUCOSE [id number] 18:58:00 Test Item Value Reference Range Interpretation Comments POC-GLUCOSE METER 117 mg/dL 70-110 H TESTED AT [facility] 6720 (NEENA) (test code = SHELLY [place] 1538) [id number] CT, CHEST, WITH [id number] 15:20:00FINAL REPORT CT of the Chest, abdomen [...] adenopathy or ascites is present in the abd omen or pelvis. Impression: 1. Right upper lobe mass suspicious for bronchogenic carcinoma.2. Nonspecific mediastinal lymph nodes.3. Diverticulosis without diverticulitis.4. No mass or adenopathy in the abdomen or pelvis. Signed: Lamonte Lorenzo Verified Date/Time: 02/28/2018 15:20:36 Reading Location: [facility] C0Y CT Body Reading Room CT, [id number] 15:20:00FINAL REPORT CT of the Chest, abdomen and pelvis dated 02/28/2018 Clinical in formation: Neoplasm: abdomen, other primary, staging Comment: Axial [...] adenopathy or ascites is present in the abd omen or pelvis. Impression: 1. Right upper lobe mass suspicious for bronchogenic carcinoma.2. Nonspecific mediastinal lymph nodes.3. Diverticulosis without diverticulitis.4. No mass or adenopathy in the abdomen or pelvis. Signed: Lamonte Lorenzo MDReport Verified Date/Time: 02/28/2018 15:20:36 Reading Location: [facility] C0Y CT Body Reading Room POCT-GLUCOSE [id number] 08:55:00 Test Item Value Reference Range Interpretation Comments POC-GLUCOSE METER 125 mg/dL 70-110 H TESTED AT [place] [address] ([facility]) (test code = SHELLY Bill [place] [address]) [id number] MR, BRAIN, [id number] 07:59:00STEALTH protocolFINAL REPORT MRI Brain with and without contrast Clinical History: Lung cancer and cerebellar metastasis Technique: MRI of the brain utilizing axial T1, T2, FLAIR, GRE, DWI, sagittal T1; and postgadolinium axial, sagittal, and coronal T1-weighted images. Comparisons: None Findings: There is a [...] signal dephasing. 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 There is no evidence of acute infarct or hemorrhage. There is mild generalized sulcal prominence. There is no midline shift. There are no extra- axial fluid collections. The major intracranial flow-voids appear patent. I MPRESSION: 2.3 cm midline superior cerebellar mass compatible with metastasis given the clinical history. Posterior fossa mass effect results in mild obstructive hydrocephalus and slight downward cerebellar ectopia. Nonspecific 5 mm nonenhancing focus in the right anterior temporal lobe. This could represent an area of gliosis or heterotopia, but given the history, a nonenhancing metastasis cannot beexcluded. Signed: Daysi Woodward MDReport Verified Date/Time: 02/28/2018 07:59:07 Reading Location: [address] Neuro Reading Room POCT- GLUCOSE [id number] 06:39:00 Test Item Value Reference Range Interpretation Comments POC-GLUCOSE METER 150 mg/dL 70-110 H TESTED AT [place] [address] ([facility]) (test code = RAFAELDARCY Bill [facility] 1538) [id number] BASIC METABOLIC [id number] 05:51:00 Test Item Value Reference Range Interpretation Comments SODIUM (BEAKER) 137 meq/L 136-145 (test code = 381) POTASSIUM (BEAKER) 3.8 meq/L 3.5-5.1 (test code = 379) CHLORIDE (BEAKER) 104 meq/L 98-107 (test code = 382) CO2 (BEAKER) (test 24 meq/L 22-29 code = 355) BLOOD UREA NITROGEN 13 mg/dL 7-21 (BEAKER) (test code = 354) CREATININE (BEAKER) 0.72 mg/dL 0.57-1.25 (test code = 358) GLUCOSE RANDOM 131 mg/dL 70-105 H (BEAKER) (test code = 652) CALCIUM (BEAKER) 9.9 mg/dL 8.4-10.2 (test code = 697) EGFR (BEAKER) (test mL/min/1.73 INSUFFIC IENT CLINICAL code = 1092) sq m DATA TO CALCULA TE ESTIMATED GFR. CBC W/PLT COUNT & AUTO [id number] 04:09:00 Test Item Value Reference Range Interpretation Comments WHITE BLOOD CELL COUNT (BEAKER) 18.5 K/ L 3.5-10.5 H (test code = 775) RED BLOOD CELL COUNT (BEAKER) 4.50 M/ L 3.93-5.22 (test code = 761) HEMOGLOBIN (BEAKER) (test code = 11.2 GM/DL 11.2-15.7 410) HEMATOCRIT (BEAKER) (test code = 35.7 % 34.1-44.9 411) MEAN CORPUSCULAR VOLUME (BEAKER) 79.3 fL 79.4-94.8 L (test code = 753) MEAN CORPUSCULAR HEMOGLOBIN 24.9 pg 25.6-32.2 L (BEAKER) (test code = 751) MEAN CORPUSCULAR HEMOGLOBIN CONC 31.4 GM/DL 32.2-35.5 L (BEAKER) (test code = 752) RED CELL DISTRIBUTION WIDTH 14.0 % 11.7-14.4 (BEAKER) (test code = 412) PLATELET COUNT (BEAKER) (test 590 K/CU MM 150-450 H code = 756) MEAN PLATELET VOLUME (BEAKER) 9.2 fL 9.4-12.3 L (test code = 754) NUCLEATED RED BLOOD CELLS 0 /100 WBC 0-0 (BEAKER) (test code = 413) NEUTROPHILS RELATIVE PERCENT 90 % (BEAKER) (test code = 429) LYMPHOCYTES RELATIVE PERCENT 7 % (BEAKER) (test code = 430) MONOCYTES RELATIVE PERCENT 2 % (BEAKER) (test code = 431) EOSINOPHILS RELATIVE PERCENT 0 % (BEAKER) (test code = 432) BASOPHILS RELATIVE PERCENT 0 % (BEAKER) (test code = 437) NEUTROPHILS ABSOLUTE COUNT 16.64 K/ L 1.56-6.13 H (BEAKER) (test code = 670) LYMPHOCYTES ABSOLUTE COUNT 1.26 K/ L 1.18-3.74 (BEAKER) (test code = 414) MONOCYTES ABSOLUTE COUNT (BEAKER) 0.44 K/ L 0.24-0.36 H (test code = 415) EOSINOPHILS ABSOLUTE COUNT 0.01 K/ L 0.04-0.36 L (BEAKER) (test code = 416) BASOPHILS ABSOLUTE COUNT (BEAKER) 0.03 K/ L 0.01-0.08 (test code = 417) IMMATURE GRANULOCYTES-RELATIVE 1 % 0-1 PERCENT (BEAKER) (test code = 2801) POCT-GLUCOSE [id number] 00:17:00 Test Item Value Reference Range Interpretation Comments POC-GLUCOSE METER 122 mg/dL 70-110 H TESTED AT [place] [address] ([facility]) (test code = [facility] 1538) [id number] POCT-GLUCOSE [id number] 18:35:00 Test Item Value Reference Range Interpretation Comments POC-GLUCOSE METER 134 mg/dL 70-110 H TESTED AT [place] [address] ([facility]) (test code = [facility] 1538) [id number] POCT-GLUCOSE [id number] 12:10:00 Test Item Value Reference Range Interpretation Comments POC-GLUCOSE METER 146 mg/dL 70-110 H TESTED AT [place] [address] ([facility]) (test code = [facility] 1538) [id number] 07:56:00 Test Item Value Reference Range Interpretation Comments PROCALCITONIN ([facility]) (test code = < ng/mL <0.05 3036) SEPSIS RISK (ng/mL)Low: 0.05-0.50Intermediate: 0.51-2.00High: >=2.01LACTATE DEHYDROGENASE (LDH)2018-02-27 06:52:00 Test Item Value Reference Range Interpretation Comments LACTATE DEHYDROGENASE (BEAKER) (test 146 U/L 125-220 code = 635) C-REACTIVE [id number] 06:52:00 Test Item Value Reference Range Interpretation Comments C-REACTIVE PROTEIN (BEAKER) (test 8.22 mg/dL 0.00-0.50 H code = 676) LACTIC ACID, ARTERIAL, WHOLE [id number] 06:01:00 Test Item Value Reference Range Interpretation Comments LACTATE BLOOD ARTERIAL (2) 1.0 mmol/L 0.5-2.2 (BEAKER) (test code = 2874) BASIC METABOLIC [id number] 05:52:00 Test Item Value Reference Range Interpretation Comments SODIUM (BEAKER) 137 meq/L 136-145 (test code = 381) POTASSIUM (BEAKER) 4.2 meq/L 3.5-5.1 Specimen slightly (test code = 379) hemolyzed CHLORIDE (BEAKER) 105 meq/L 98-107 (test code = 382) CO2 (BEAKER) (test 25 meq/L 22-29 code = 355) BLOOD UREA NITROGEN 13 mg/dL 7-21 (BEAKER) (test code = 354) CREATININE (BEAKER) 0.74 mg/dL 0.57-1.25 Specimen slightly (test code = 358) hemolyzed GLUCOSE RANDOM 93 mg/dL 70-105 (BEAKER) (test code = 652) CALCIUM (BEAKER) 9.4 mg/dL 8.4-10.2 (test code = 697) EGFR (BEAKER) (test mL/min/1.73 INSUFFIC IENT CLINICAL code = 1092) sq m DATA TO CALCULA TE ESTIMATED GFR. TROPONIN [id number] 05:48:00 Test Item Value Reference Range Interpretation Comments TROPONIN I (BEAKER) (test code = 397) < ng/mL 0.00-0.03 [id number] 05:43:00 Test Item Value Reference Range Interpretation Comments MAGNESIUM (BEAKER) 2.1 mg/dL 1.6-2.6 Specimen slightly (test code = 627) hemolyzed [id number] 05:43:00 Test Item Value Reference Range Interpretation Comments PHOSPHORUS (BEAKER) 4.1 mg/dL 2.3-4.7 Specimen slightly (test code = 604) hemolyzed CBC W/PLT COUNT & AUTO [id number] 05:34:00 Test Item Value Reference Range Interpretation Comments WHITE BLOOD CELL COUNT (BEAKER) 13.1 K/ L 3.5-10.5 H (test code = 775) RED BLOOD CELL COUNT (BEAKER) 4.42 M/ L 3.93-5.22 (test code = 761) HEMOGLOBIN (BEAKER) (test code = 11.2 GM/DL 11.2-15.7 410) HEMATOCRIT (BEAKER) (test code = 35.7 % 34.1-44.9 411) MEAN CORPUSCULAR VOLUME (BEAKER) 80.8 fL 79.4-94.8 (test code = 753) MEAN CORPUSCULAR HEMOGLOBIN 25.3 pg 25.6-32.2 L (BEAKER) (test code = 751) MEAN CORPUSCULAR HEMOGLOBIN CONC 31.4 GM/DL 32.2-35.5 L (BEAKER) (test code = 752) RED CELL DISTRIBUTION WIDTH 14.2 % 11.7-14.4 (BEAKER) (test code = 412) PLATELET COUNT (BEAKER) (test 490 K/CU MM 150-450 H code = 756) MEAN PLATELET VOLUME (BEAKER) 9.0 fL 9.4-12.3 L (test code = 754) NUCLEATED RED BLOOD CELLS 0 /100 WBC 0-0 (BEAKER) (test code = 413) NEUTROPHILS RELATIVE PERCENT 63 % (BEAKER) (test code = 429) LYMPHOCYTES RELATIVE PERCENT 25 % (BEAKER) (test code = 430) MONOCYTES RELATIVE PERCENT 8 % (BEAKER) (test code = 431) EOSINOPHILS RELATIVE PERCENT 4 % (BEAKER) (test code = 432) BASOPHILS RELATIVE PERCENT 1 % (BEAKER) (test code = 437) NEUTROPHILS ABSOLUTE COUNT 8.20 K/ L 1.56-6.13 H (BEAKER) (test code = 670) LYMPHOCYTES ABSOLUTE COUNT 3.22 K/ L 1.18-3.74 (BEAKER) (test code = 414) MONOCYTES ABSOLUTE COUNT (BEAKER) 0.99 K/ L 0.24-0.36 H (test code = 415) EOSINOPHILS ABSOLUTE COUNT 0.57 K/ L 0.04-0.36 H (BEAKER) (test code = 416) BASOPHILS ABSOLUTE COUNT (BEAKER) 0.08 K/ L 0.01-0.08 (test code = 417) IMMATURE GRANULOCYTES-RELATIVE 1 % 0-1 PERCENT (BEAKER) (test code = 2801) POCT-GLUCOSE [id number] 05:32:00 Test Item Value Reference Range Interpretation Comments POC-GLUCOSE METER 118 mg/dL 70-110 H TESTED AT [facility] 6720 (AKER) (test code = [place] 1538) [id number] 05:20:00 Test Item Value Reference Range Interpretation Comments PROTIME (BEAKER) (test code = 13.7 seconds 11.7-14.7 759) INR (BEAKER) (test code = 370) 1.1 <=5.9 PARTIAL THROMBOPLASTIN TIME 26.4 seconds 22.5-36.0 (BEAKER) (test code = 760) RECOMMENDED COUMADIN/WARFARIN INR THERAPY RANGESSTANDARD DOSE: 2.0 - 3.0 Includes: PROPHYLAXIS forvenous thrombosis, systemic embolization; TREATMENT for venous thrombosis and/or pulmonary embolus.HIGH RISK: Target INR is 2.5-3.5 for patients with mechanical heart valves.PROTHROMBIN [id number] 05:19:00 Test Item Value Reference Range Interpretation Comments PROTIME (BEAKER) (test code = 13.7 seconds 11.7-14.7 759) INR (BEAKER) (test code = 370) 1.1 <=5.9 RECOMMENDED COUMADIN/WARFARIN INR THERAPY RANGESSTANDARD DOSE: 2.0 - 3.0 Includes: PROPHYLAXIS forvenous thrombosis, systemic embolization; TREATMENT for venous thrombosis and/or pulmonary embolus.HIGH RISK: Target INR is 2.5-3.5 for patients with mechanical heart valves.
--- OUTSIDE RECORDS SUMMARY | 2019-08-23 21:29 | XMS REPORT ---
:1960 Author Organization [employer] Care Team Providers Name Role Phone Crista Chiang Provider Role Unavailable Allergies No Known Allergies Problems Problem Type Condition Code Onset Dates Condition Statu s Problem Bilateral change in hearing H91.93 Active Problem 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 Problem History of brain cancer in Z85.841 A ctive adulthood Problem Migraine with aura and with status G43.101 Active migrainosus, not intractable Problem Cough R05 Active Problem Intractable vomiting with nausea, R11.2 Active unspecified vomiting type Problem Carotid insufficiency G45.1 Active Problem Vision changes H53.9 Active Problem Shortness of breath R06.02 Active Problem Wheezing R06.2 Active Medications No Known Medications Results No Known Results Summary Purpose eClinicalCANDDi Submission
[2019-08-23 22:07] LABS: Absolute Lymphocytes (CBC) 3.2 K/uL (0.7-4.9); Basophils % 0.6 % (0-1.3); Lymphocytes % 16.7 % (15.3-44.8); RBC Red Blood Cell Count 4.16 M/uL (3.86-4.86)
[2019-08-23 22:20] LABS: BUN Blood Urea Nitrogen 12 mg/dL (7-18); Bicarbonate 25 mmol/L (21-32); Glucose Level 99 mg/dL (74-106); Potassium 4.3 mmol/L (3.5-5.1); Sodium Level 136 mmol/L (136-145)
[2019-08-23 23:13] LABS: Blood Morphology Comment NOT SEEN (NOT SEEN); Platelet Estimate INCR; Toxic Granulation 2+
[2019-08-24] MEDS ORDERED: HYDROCODONE/APAP 5/325 MG TAB ONE (00:03)
--- NOTE | 2019-08-24 00:04 | ER ---
Nurse's Notes [facility] Name: [place] Alfaro Age: 59 yrs Sex: Female : 1960 Arrival Date: 08/23/2019 Time: 21:27 Bed 5 Private MD: Diagnosis: Headache Presentation: 08/22 21:36 Chief complaint: Patient states: Severe SIERRA for 3 days. No fever. Coronavirus screen: ll1 Proceed with normal triage. Patient denies a cough. Patient denies shortness of breath or difficulty breathing. Patient denies measured and/or subjective temperature greater than 100.4F prior to today's visit. Patient denies travel on a cruise ship or to a country the [facility] currently lists as an affected area. Patient denies contact with known and/or suspected case of COVID-19. Ebola Screen: Patient denies travel to an Ebola-affected area in the 21 days before illness onset. Initial Sepsis Screen: Does the patient meet any 2 criteria? No. Patient's initial sepsis screen is negative. Risk Assessment: Do you want to hurt yourself or someone else? Patient reports no desire to harm self or others. Onset of symptoms was August 20, 2019. 21:36 Method Of Arrival: Ambulatory ll1 21:36 Acuity: AILYN 3 ll1 21:40 Initial Sepsis Screen: Does the patient have a suspected source of infection? No. lp1 Patient's initial sepsis screen is negative. Historical: - Allergies: 21:38 Erythromycin; ll1 - PMHx: 21:38 Vertigo; Diverticulitis; Cancer; ll1 - PSHx: 21:38 Cholecystectomy; Tubal ligation; brain tumor removal 2018; ll1 - Immunization history:: Adult Immunizations up to date. - Social history:: Smoking status: Patient/guardian denies using tobacco, the patient reports quitting approximately 15 years ago, Patient/guardian denies using alcohol, street drugs. - Family history:: not pertinent. Screenin/25 00:21 Abuse screen: Denies threats or abuse. Denies injuries from another. Nutritional lp1 screening: No deficits noted. Tuberculosis screening: No symptoms or risk factors identified. Fall Risk None identified. Assessment: 08/22 23:13 Reassessment: Received critical band of 9%. Reported to Dr. Nam. 08/23 00:00 Reassessment: Patient appears in no apparent distress at this time. Patient is alert, rr5 oriented x 3, equal unlabored respirations, skin warm/dry/pink. pain going up to 7/10 stated by patient. ED provider aware with order made and carried out. 00:20 Reassessment: Patient appears in no apparent distress at this time. Patient is alert, lp1 oriented x 3, equal unlabored respirations, skin warm/dry/pink. Patient states feeling better. Patient states symptoms have improved. Neuro: Gait is steady. Vital Signs: 08/22 21:36 BP 125 / 73; Pulse 81; Resp 18; Temp 99.3; Pulse Ox 99% ; Pain 5/10; ll1 23:08 BP 110 / 71; Pulse 81; Resp 18 S; Pulse Ox 96% on R/A; jd3 08/23 00:20 BP 108 / 59; Pulse 79; Resp 18; Pulse Ox 99% on R/A; lp1 ED Course: 08/22 21:27 Patient arrived in ED. cl3 21:36 Dario Nam DO is Attending Physician. ms3 21:36 Octavio Negron, KRISTOPHER is Primary Nurse. rr5 21:38 Triage completed. ll1 21:39 Arm band placed on Patient placed in an exam room, on a stretcher. ll1 22:00 Patient has correct armband on for positive identification. lp1 22:35 CT Head Brain wo Cont In Process Unspecified. EDAL 08/23 00:03 Opal Kruger MD is Referral Physician. ms3 00:21 No provider procedures requiring assistance completed. IV discontinued, No lp1 redness/swelling at site. Pressure dressing applied, 20g IV to R FA DC'd at this time. Administered Medications: 00:00 Drug: Granville 5 mg-325 mg 1 tabs {Note: rass 0.} Route: PO; rr5 00:23 Follow up: Response: No adverse reaction lp1 Outcome: 00:03 Discharge ordered by . ms3 00:21 Discharged to home ambulatory, with friend. lp1 00:21 Condition: good 00:21 Discharge instructions given to patient, Instructed on discharge instructions, follow up and referral plans. Demonstrated understanding of instructions, follow-up care. 00:24 Patient left the ED. lp1 Signatures: Dispatcher [employer] [facility] Shama Cantrell RN RN lp1 Harrison Pop RN RN jd3 Octavio Negron RN RN rr5 Deshawn Doan cl3 Abigail Ramirez RN RN ah Lewis, Lynsay RN RN ll1 Dario Nam DO DO ms3 Corrections: (The following items were deleted from the chart) 00:00 00:00 Granville 5 mg-325 mg 1 tabs PO rr5 rr5
--- NOTE | 2019-08-24 00:04 | EDPHYS ---
Physician Documentation [facility] Name: Albania Alfaro Age: 59 yrs Sex: Female : 1960 Arrival Date: 08/23/2019 Time: 21:27 Bed 5 Private MD: ED Physician Dario Nam HPI: 08/22 21:56 This 59 yrs old Female presents to ER via Ambulatory with complaints of ms3 Severe Headache. 21:56 The patient complains of pain to the right occipital area and right base of the skull. ms3 The patient describes the headache as aching. Onset: The symptoms/episode began/occurred 3 day(s) ago. Associated signs and symptoms: The patient has no apparent associated signs or symptoms. Severity of symptoms: At its worst the pain was severe, in the emergency department the pain is unchanged. Headache History: The patient has had previous headaches and this one is more severe than previous episodes. The symptoms are alleviated by nothing. the symptoms are aggravated by nothing. The patient has not experienced similar symptoms in the past. 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 Historical: - Allergies: 21:38 Erythromycin; ll1 - PMHx: 21:38 Vertigo; Diverticulitis; Cancer; ll1 - PSHx: 21:38 Cholecystectomy; Tubal ligation; brain tumor removal 2017; ll1 - Immunization history:: Adult Immunizations up to date. - Social history:: Smoking status: Patient/guardian denies using tobacco, the patient reports quitting approximately 15 years ago, Patient/guardian denies using alcohol, street drugs. - Family history:: not pertinent. ROS: 21:57 Constitutional: Negative for fever, and chills. Eyes: Negative for injury, pain, ms3 redness, and discharge, ENT: Negative for injury, pain, and discharge, Neck: Negative for injury, pain, and swelling, Cardiovascular: Negative for chest pain, and palpitations. Respiratory: Negative for shortness of breath, cough, wheezing, and pleuritic chest pain, Abdomen/GI: Negative for abdominal pain, nausea, vomiting, diarrhea, and constipation, Back: Negative for injury and pain, MS/Extremity: Negative for injury and deformity, Skin: Negative for injury, rash, and discoloration. 21:57 : Negative for injury, bleeding, discharge, and swelling, Psych: Negative for depression, anxiety, suicide ideation, homicidal ideation, and hallucinations. 21:57 Neuro: Positive for headache. Exam: 21:57 Constitutional: This is a well developed, well nourished patient who is awake, alert, ms3 and in no acute distress. Head/Face: Normocephalic, atraumatic. Eyes: Pupils equal round and reactive to light, extra-ocular motions intact. Lids and lashes normal. Conjunctiva and sclera are non-icteric and not injected. Cornea within normal limits. Periorbital areas with no swelling, redness, or edema. ENT: Nares patent. No nasal discharge, no septal abnormalities noted. Oropharynx with no redness, swelling, or masses, exudates, or evidence of obstruction, uvula midline. Mucous membranes moist. Cardiovascular: Regular rate and rhythm with a normal S1 and S2. No gallops, murmurs, or rubs. Normal PMI, no JVD. No pulse deficits. Respiratory: Lungs have equal breath sounds bilaterally, clear to auscultation and percussion. No rales, rhonchi or wheezes noted. No increased work of breathing, no retractions or nasal flaring. Abdomen/GI: Soft, non-tender, with normal bowel sounds. No distension or tympany. No guarding or rebound. No evidence of tenderness throughout. Back: No spinal tenderness. No costovertebral tenderness. Full range of motion. Skin: Warm, dry with normal turgor. Normal color with no rashes, no lesions, and no evidence of cellulitis. MS/ Extremity: Pulses equal, no cyanosis. Neurovascular intact. Full, normal range of motion. Neuro: Awake and alert, GCS 15, oriented to person, place, time, and situation. Cranial nerves II-XII grossly intact. Motor strength 5/5 in all extremities. Sensory grossly intact. Cerebellar exam normal. Normal gait. Vital Signs: 21:36 BP 125 / 73; Pulse 81; Resp 18; Temp 99.3; Pulse Ox 99% ; Pain 5/10; ll1 23:08 BP 110 / 71; Pulse 81; Resp 18 S; Pulse Ox 96% on R/A; jd3 08/23 00:20 BP 108 / 59; Pulse 79; Resp 18; Pulse Ox 99% on R/A; lp1 MDM: 08/22 21:42 Patient medically screened. ms3 21:57 Differential diagnosis: neoplasm, subarachnoid bleed, tension headache. ms3 08/22 21:43 Order name: CBC with Diff; Complete Time: 23:21 ms3 08/22 21:43 Order name: Basic Metabolic Panel; Complete Time: 23:21 ms3 08/22 21:43 Order name: CT Head Brain wo Cont ms3 08/22 22:12 Order name: Manual Differential; Complete Time: 23:21 EDMS Administered Medications: 08/23 00:00 Drug: [place] 5 mg-325 mg 1 tabs {Note: rass 0.} Route: PO; rr5 00:23 Follow up: Response: No adverse reaction lp1 Disposition: 08/24/19 00:03 Discharged to Home. Impression: Headache. - Condition is Stable. - Discharge Instructions: General Headache Without Cause. - Medication Reconciliation Form, Thank You Letter, Antibiotic Education, Prescription Opioid Use form. - Follow up: Opal Kruger MD; When: 1 - 2 days; Reason: Re-evaluation by your physician. Signatures: Dispatcher [employer] EDMS Shama Cantrell RN RN lp1 Octavio Negron RN RN rr5 Susanna Doan RN RN ll1 Dario Nam DO DO ms3 Corrections: (The following items were deleted from the chart) 00: 00:03 08/24/2019 00:03 Discharged to Home. Impression: Headache. Condition is Stable. lp1 Forms are Medication Reconciliation Form, Thank You Letter, Antibiotic Education, Prescription Opioid Use. Follow up: Opal Alba; When: 1 - 2 days; Reason: Re-evaluation by your physician. ms3
[2019-08-24 00:36] VITALS: TEMP 99.3
[2019-08-24 00:38] VITALS: BP 108/59; O2SAT 99
--- NOTE | 2019-08-24 09:47 | RAD REPORT ---
EXAM DESCRIPTION: CT - Head Brain Wo Cont - 08/24/2019 12:33 am CLINICAL HISTORY: The patient is 59 years old and is Female; HEADACHE TECHNIQUE: Axial computed tomography images of the head/brain without intravenous contrast. Sagitt al and coronal reformatted images were created and reviewed. This CT exam was performed using one o r more of the following dose reduction techniques: automated exposure control, adjustment of the mA and/or kV according to patient size, and/or use of iterative reconstruction technique. COMPARISON: No relevant prior studies available. FINDINGS: BRAIN: Few scattered physiologic calcifications within the left frontal lobe are present . The fleming-white differentiation is maintained. There is no cerebral edema. No intracranial hemorrhag e, mass effect, or midline shift is seen. There are no extra-axial fluid collections. VENTRICLES: Unremarkable. No ventriculomegaly. BONES/JOINTS: Evidence of a prior occipital decompression craniotomy is noted. SOFT TISSUES: Unremarkable. SINUSES: Unremarkable as visualized. No acute sinusitis. MASTOID AIR CELLS: Unremarkable as visualized. No mastoid effusion. ORBITS: Unremarkable as visualized. IMPRESSION: No acute intracranial findings. Electronically signed by: Tracy Dockery MD 08/23/2019 10:52 PM CDT Due to temporary technical issues with the PACS/Fluency reporting system, reports are being signed by the in house radiologist as a courtesy to ensure prompt reporting. The interpreting radiologist is f ully responsible for the content of the report.
== END 2019-08-24 00:24 | disposition home or self-care (01) ==
LOC: ER 21:25
DX: R51 Headache (principal); Z88.3 Allergy status to other anti-infective agents
CPT/HCPCS: 36415; 70450; 80048; 85025; 99283

== ENCOUNTER 2020-01-15 13:43 | Emergency (ER) | payer MEDICAID ==
--- OUTSIDE RECORDS SUMMARY | 2020-01-15 13:46 | XMS REPORT | Clinical Summary ---
:1960 Author Organization [facility] Address [address] [place] [id number] Care Team Providers Name Role Phone Unavailable [...] Assigned at Date Recorded Not on file Last Filed Vital Signs Not on file Plan of Treatment Not on file Implants Implanted Type Area Shoe Repairman Device Shelf Model / Identifier Expiration Serial / Lot Date [facility] Full Strlprep 10ml [id number] - Sna Cement/F N/A: BA XTER:BIOSCI 07/25/2019 [id number] / Implanted: Qty: 1 on 03/06/2018 by Robert Wise i, MD at [facility] iller/Ad Head NA / hesive [id number] Se[employer]ant Durasl Spine 5ml [id number] - [id number] Cement/F N/A: INT EGRA LIFESCI 07/30/[id number] / Implanted: Qty: 1 on 03/06/2018 by Robert Wise i, MD at [facility] iller/Ad Head / hesive [id number] Plt Str Lp-Neuro 2h 12mm Ti Ns [id number] - Sna Fracture N/A: SYNTH ES:SYNTHES 421.502 / Implanted: Qty: 2 on 03/06/2018 by Robert Wise i, MD at [facility] /[employer] NA / n NA Plt Str Lp-Neuro 4h 12mm Ti Ns 421.504 - Sna Fracture N/A: SYNTH ES:SYNTHES 421.504 / Implanted: Qty: 1 on 03/06/2018 by Robert Wise i, MD at [facility] /[employer] NA / n NA Scr Sd Mtrxneu 4mm Ti Ns [id number] - Sna Fracture N/A: SYNTH ES:SYNTHES [id number] / Implanted: Qty: 8 on 03/06/2018 by Robert Wise i, MD at [facility] /[employer] NA / n NA Graft Suturable Bp 4x5cm [id number] - [id number] Graft/Pa N/A: IN TEGRA LIFESCI 03/31/2022 [id number] / Implanted: Qty: 1 on 03/06/2018 by Robert Wise i, MD at [facility] Head [id number] / [id number] Results Not on fileafter 01/14/2019 Advance Directives For more information, please contact: [phone] Code Status Date Activated Date Inactivated Comments Full Code 02/27/2018 3:43 AM This code status was determined by: Patient
--- OUTSIDE RECORDS SUMMARY | 2020-01-15 13:48 | XMS REPORT ---
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
--- OUTSIDE RECORDS SUMMARY | 2020-01-15 13:48 | XMS REPORT ---
:1960 Author Organization [employer] Care Team Providers Name Role Phone Crista Chiang Provider Role Unavailable Allergies, Adverse Reactions, Alerts Substance Reaction Event Type Erythromycin Info Not Available Drug Allergy Problems Problem Type Condition Code Onset Dates Condition Statu s Problem Malignant neoplasm of upper lobe C34.11 Active of right lung Problem Carotid insufficiency G45.1 Active Problem Vision changes H53.9 Active Problem Nausea R11.0 Active Problem Intractable vomiting with nausea, R11.2 Active unspecified vomiting type Problem Dysuria R30.0 Active Problem Cough R05 Active Problem Shortness of breath R06.02 Active Problem Migraine with aura and with status G43.101 Active migrainosus, not intractable Problem Wheezing R06.2 Active Assessment Encounter for immunization Z23 A ctive Assessment Puncture wound T14.8XXA Active Assessment Otalgia of left ear H92.02 Active Problem Bilateral change in hearing H91.93 Active Assessment Bitten by dog, initial encounter W54.0XXA Active Problem History of brain cancer in Z85.841 A ctive adulthood Medications Medication Code Code Instructions Start End Status Dosage System Date Date Pantoprazole [facility] 00590399684 40 MG Oral Active TAKE ONE Sodium (1) TABLET(S) BY MOUTH ONCE A DAY. Zofran ND 05482083716 4 MG Orally Once Active 1 t ablet a day Ondansetron HCl [facility] 62452228633 4 MG Oral twice Acti ve 1 tablet a day Acetaminophen-Co ND 43633355201 300-30 MG Orally Apr 27, Ac tive 1 tablet deine #3 every 6 hrs 2020 as needed Aspirin ND 48885140288 81 MG Orally Active 1 table t Once a day Amoxicillin-Pot ND 60133393104 875-125 MG October 20Oct 30, Active 1 tablet Clavulanate Orally every 12 2020 2020 hrs Folic Acid ND 87507996102 1 MG Oral Active TAKE ON E (1) TABLET(S) BY MOUTH ONCE A DAY (START 5 DAYS BEFORE CHEMO AND FINISH 21 DAYS AFTER). Topiramate [facility] 98594098385 50 MG Orally Active 1 ta blet Once a day ProAir HFA [facility] 64048274364 108 (90 Base) Jan 27, Active 2 p uffs MCG/ACT 2018 as needed Inhalation every 6 hrs Results No Known Results Immunizations Vaccine Administration Date TDAP > 7 Years-Adacel October 21, 2019 Summary Purpose eClinicalWorks Submission
--- OUTSIDE RECORDS SUMMARY | 2020-01-15 13:48 | XMS REPORT ---
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 Problem Vision changes H53.9 Active Problem Tinea unguium B35.1 Active Problem Nausea R11.0 Active Problem Vaginal atrophy N95.2 Active Problem Migraine with aura and with status G43.101 Active migrainosus, not intractable Problem Cough R05 Active Problem Dysuria R30.0 Active Problem Intractable vomiting with nausea, R11.2 Active unspecified vomiting type Medications Medication Code System Code Instructions Start Date End Date Status Dosage Topiramate [facility] 88249753167 50 MG Orally Active 1 ta blet Twice a day Results No Known Results Summary Purpose eClinicalWorks Submission
--- OUTSIDE RECORDS SUMMARY | 2020-01-15 13:48 | XMS REPORT ---
:1960 Author Organization [employer] Care Team Providers Name Role Phone Crista Chiang Provider Role Unavailable Allergies, Adverse Reactions, Alerts Substance Reaction Event Type Erythromycin Info Not Available Drug Allergy Problems Problem Type Condition Code Onset Dates Condition Statu s Problem Vision changes H53.9 Active Problem Shortness of breath R06.02 Active Problem Carotid insufficiency G45.1 Active Problem Dysuria R30.0 Active Problem Nausea R11.0 Active Problem Tinea unguium B35.1 Active Problem Wheezing R06.2 Active Problem Cough R05 Active Problem Intractable vomiting with nausea, R11.2 Active unspecified vomiting type Problem Migraine with aura and with status G43.101 Active migrainosus, not intractable Problem Bilateral change in hearing H91.93 Active Assessment Migraine with aura and with status G43.101 Active migrainosus, not intractable Problem History of brain cancer in Z85.841 A ctive adulthood Assessment Tinea unguium B35.1 Active Problem 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 Medications Medication Code Code Instructions Start End Status Dosage System Date Date Aspirin [facility] 50485882783 81 MG Orally Active 1 table t Once a day Topiramate ND 43824769431 50 MG Orally Active 1 ta blet Once a day Ondansetron HCl [facility] 86955947559 4 MG Oral twice Acti ve 1 tablet a day ProAir HFA [facility] 37884069960 108 (90 Base) Jan 27, Active 2 p uffs as MCG/ACT 2019 needed Inhalation every 6 hrs Acetaminophen-C ND 89417635044 300-30 MG Apr 27, Active 1 tablet as odeine #3 Orally every 6 2020 needed hrs Folic Acid ND 22259810433 1 MG Oral Active TAKE ON E (1) TABLET(S) BY MOUTH ONCE A DAY (START 5 DAYS BEFORE CHEMO AND FINISH 21 DAYS AFTER). Zofran ND 82241243960 4 MG Orally Active 1 tablet Once a day Pantoprazole ND 72636063899 40 MG Oral Active TAKE ONE (1) Sodium TABLET(S) BY MOUTH ONCE A DAY. Penla NDC 0 8% Topically Nov 29Oct Active 1 applicati on Once daily 2019, to 1st toes 2028 of both feet Results No Known Results Summary Purpose eClinicalWorks Submission
--- OUTSIDE RECORDS SUMMARY | 2020-01-15 13:48 | XMS REPORT ---
[...] Instructions Start Date End Date Status Dosage Estrace [facility] 95599583259 0.1 MG/GM Vaginal Dec 10, Active 0 .5 gm daily X 1 week 2019 then reduce to Twice weekly Results No Known Results Summary Purpose eClinicalWorks Submission
--- OUTSIDE RECORDS SUMMARY | 2020-01-15 13:48 | XMS REPORT ---
:1960 Author Organization [facility] Address [address] [place] [address] Care Team Providers Name Role Phone Mariia Unavailable [phone] PROBLEMS Type Condition ICD9-CM [id number] Onset Condition SNOMED Code Notes Code Code Dates Status Problem History of brain Z85.841 Active 563267343 cancer in adulthood Problem Bilateral change H91.93 Active 801374150 in hearing Problem Vision changes H53.9 Active 390484443 Problem Malignant C34.11 Active 415432144 neoplasm of upper lobe of right lung Problem Shortness of R06.02 Active 194164621 breath Problem Cough R05 Active 39545456 Problem Migraine with G43.101 Active 1913551 aura and with status migrainosus, not intractable Problem Vaginal atrophy N95.2 Active 476100949 Problem Wheezing R06.2 Active 75097057 Problem Environmental Z91.09 Active 137746733 allergies Problem 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 43669789 insufficiency Problem Intractable R11.2 Active 230075966 vomiting with nausea, unspecified vomiting type Problem Dysuria R30.0 Active 52949834 Problem Nausea R11.0 Active 815758494 Problem Tinea unguium B35.1 Active 836913831 ALLERGIES Allergen (clinical drug Drug/Non Drug Allergy Reaction Allergy Type Onset Date Status ingredient) documented on EMR erythromycin Erythromycin([facility] Unknown Drug Allergy Acti ve Code:[address]-88) ENCOUNTERS from 1960 to 2020-01-14 Encounter Location Date Provider Diagnosis [facility] [address] [facility] [address] [place] [address] Dec, [address] [place] [address] IMMUNIZATIONS Vaccine Route Administration Date Status Adacel (Tdap) IM Intramuscular October 21, 2019 Administered SOCIAL HISTORY Tobacco Use: Social History Observation Description Date Details (start date - stop date) Former Smoker Sex Assigned At : Social History Observation Description Sex Assigned At Unknown Alcohol Screen Question Answer Notes Did you have a drink containing alcohol in the past year? No Points 0 Interpretation Negative Tobacco Use/Smoking Question Answer Notes Are you a former smoker REASON FOR REFERRAL No Information VITAL SIGNS No information MEDICATIONS Medication SIG (Take, Route, Start Date End Date Status Frequency, Duration) Multi For Her - as directed Orally Active Aspirin 81 MG 1 tablet Orally Once a Acti ve day for 30 day(s) Acetaminophen-Codeine #3 1 tablet as needed Orally Apr, Active 300-30 MG every 6 hrs for 5 days Flonase 50 MCG/DOSE 1 spray in each nostril Active Nasally Once a day for 30 day(s) Pantoprazole Sodium 40 MG TAKE ONE (1) TABLET(S) BY Active MOUTH ONCE A DAY. Oral for 12 Estrace 0.1 MG/GM 0.5 gm Vaginal daily X 1 Nov, Active week then reduce to Twice weekly for 30 days Topiramate 50 MG 1 tablet Orally Twice a Active day for 30 days Claritin 10 MG 1 tablet Orally Once a Act damian day for 30 day(s) Folic Acid 1 MG TAKE ONE (1) TABLET(S) BY Active MOUTH ONCE A DAY (START 5 DAYS BEFORE CHEMO AND FINISH 21 DAYS AFTER). Oral for 30 Iron 325 (65 Fe) MG 1 tablet Orally Once a Active day for 30 day(s) Ondansetron HCl 4 MG 1 tablet Oral twice a day Active Flagyl 500 MG 1 tablet Orally Two times Dec, Dec, A ctive a day for 10 day(s) Benadryl 25 MG 1 capsule at bedtime as Ac tive needed Orally Once a day for 30 day(s) ProAir HFA 108 (90 Base) 2 puffs as needed Dec, Active MCG/ACT Inhalation every 6 hrs for 30 days PROCEDURES No Information RESULTS No Results REASON FOR VISIT FYI MEDICAL (GENERAL) HISTORY Type Description Date Medical History Lungs/Brain Cancer Surgical History Tubal Surgical History Laura Surgical History Brain(cancer) Goals Section No Information Health Concerns No Information MEDICAL EQUIPMENT No Information MENTAL STATUS No Information FUNCTIONAL STATUS No Information ASSESSMENTS No Information PLAN OF TREATMENT Medication Medication Name Sig Start Date Stop Date Flagyl 500 MG 1 tablet Orally Two times a day for 10 13 Dec, 2 020 Dec, day(s) Next Appt Details Provider Name:Crista Chiang, 2020-03-01 02 :00:00 PM, [address] [facility], [address], [place], [address], Insurance Providers Payer Name Payer Payer Insured Patient Coverage Coverage End Address Phone Name Relationship to Start Date Darryn e Insured [place] [phone] Debra Alfaro [facility] [id number] [address]
--- OUTSIDE RECORDS SUMMARY | 2020-01-15 13:48 | XMS REPORT ---
:1960 Author Organization [facility] Address [address] [place] [address] Care Team Providers Name Role Phone Mariia Unavailable [phone] PROBLEMS Type Condition ICD9-CM [id number] Onset Condition SNOMED Code Notes Code Code Dates Status Problem History of brain Z85.841 Active 327299241 cancer in adulthood Problem Bilateral change H91.93 Active 264874338 in hearing Problem Vision changes H53.9 Active 961030164 Problem Malignant C34.11 Active 172856536 neoplasm of upper lobe of right lung Problem Shortness of R06.02 Active 294104037 breath Problem Cough R05 Active 92974271 Problem Migraine with G43.101 Active 9470718 aura and with status migrainosus, not intractable Problem Vaginal atrophy N95.2 Active 731861671 Problem Wheezing R06.2 Active 13972193 Problem Environmental Z91.09 Active 235161623 allergies Problem 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 57174728 insufficiency Problem Intractable R11.2 Active 069756481 vomiting with nausea, unspecified vomiting type Problem Dysuria R30.0 Active 17313102 Problem Nausea R11.0 Active 937697299 Problem Tinea unguium B35.1 Active 464571222 ALLERGIES Allergen (clinical drug Drug/Non Drug Allergy Reaction Allergy Type Onset Date Status ingredient) documented on EMR erythromycin Erythromycin([facility] Unknown Drug Allergy Acti ve Code:[address]-77) ENCOUNTERS from 1960 to 2020-01-13 Encounter Location Date Provider Diagnosis [address] [facility] [address] Dec, Crista irby of [facility] [address] [place], [place] [address] R19.7 and Environmental allergies Z91.0 9 IMMUNIZATIONS Vaccine Route Administration Date Status Adacel [...] REASON FOR REFERRAL No Information VITAL SIGNS Height 64.25 in Dec, Weight 175 lbs Dec, Temperature 99.2 degrees Fahrenheit Dec, BMI 29.80 kg/m2 Dec, MEDICATIONS Medication SIG (Take, Route, Start Date End Date Status Frequency, Duration) Multi For Her - as directed Orally Active Claritin 10 MG 1 tablet Orally Once a Act damian day for 30 day(s) Flagyl 500 MG 1 tablet Orally Two times Dec, Dec, A ctive a day for 10 day(s) Flonase 50 MCG/DOSE 1 spray in each nostril Active Nasally Once a day for 30 day(s) Acetaminophen-Codeine #3 1 tablet as needed Orally Apr, Active 300-30 MG every 6 hrs for 5 days Estrace 0.1 MG/GM 0.5 gm Vaginal daily X 1 Nov, Active week then reduce to Twice weekly for 30 days Topiramate 50 MG 1 tablet Orally Twice a Active day for 30 days ProAir HFA 108 (90 Base) 2 puffs as needed Dec, Active MCG/ACT Inhalation every 6 hrs for 30 days Folic Acid 1 MG TAKE ONE (1) TABLET(S) BY Active MOUTH ONCE A DAY (START 5 DAYS BEFORE CHEMO AND FINISH 21 DAYS AFTER). Oral for 30 Iron 325 (65 Fe) MG 1 tablet Orally Once a Active day for 30 day(s) Ondansetron HCl 4 MG 1 tablet Oral twice a day Active Pantoprazole Sodium 40 MG TAKE ONE (1) TABLET(S) BY Active MOUTH ONCE A DAY. Oral for 12 Benadryl 25 MG 1 capsule at bedtime as Ac tive needed Orally Once a day for 30 day(s) Aspirin 81 MG 1 tablet Orally Once a Acti ve day for 30 day(s) PROCEDURES No Information RESULTS No Results REASON FOR VISIT having diarrhea,headaches, MP Telehealth PE Normal, Telehealth Visit MEDICAL (GENERAL) HISTORY Type Description Date Medical History Lungs/Brain Cancer Surgical History Tubal Surgical History Laura Surgical History Brain(cancer) Goals Section No Information Health Concerns No Information MEDICAL EQUIPMENT No Information MENTAL STATUS No Information FUNCTIONAL STATUS No Information ASSESSMENTS Encounter Date Diagnosis Notes Dec, Diarrhea of presumed infectious origin ( ICD-10 - R19.7) Dec, Environmental allergies (ICD-10 - Z91.09 ) PLAN OF TREATMENT Medication Medication Name Sig Start Date Stop Date Flagyl 500 MG 1 tablet Orally Two times a day for 10 Dec, 2 020 Dec, day(s) Treatment Notes Assessment Notes Clinical Notes Diarrhea of presumed infectious clear liquids for rest of da yStart origin BRAT diet tomorrowmed as directedinc fluids (clear) Environmental allergies continue OTC's now using Next Appt Details 2 - 3 Days if no improvement. To ER if w orsening sx Reason: Provider Name:Crista Chiang, 2020-03-01 02 :00:00 PM, [address] [facility], [address], [place], [address], Insurance Providers Payer Name Payer Payer Insured Patient Coverage Coverage End Address Phone Name Relationship to Start Date Darryn e Insured [place] [phone] Debra Alfaro [facility] [address] [address]
--- OUTSIDE RECORDS SUMMARY | 2020-01-15 13:48 | XMS REPORT | Continuity of Care Document ---
:1960 Author Organization [facility] t Address [address] [place] [address] [address]. [address] [place] [address] Care Team Providers Name Role Phone Doctor Unassigned, Name Attending Clinician Unavailable Felicitas STRAUSS, Bobby Attending Clinician CORONA MÁRQUEZ Attending Clinician Unavailable CORONA MÁRQUEZ Admitting Clinician Unavailable Problems Condition Condition Condition Status Onset Resolution Last Treating Co mments Source Name Details Category Date Date Treatment Clinician Date Cerebellar Cerebellar Disease Active 2017-[address] [facility] [place] Mass of Mass of Disease Active 2017-[address] [facility] right lung right lung 04-29 Gwen kes - 00:00: Medical [place] Hydrocepha Hydrocepha Disease Active 2017-[address] mikie mikie 04-29 [facility] Bandemia Bandemia Disease [facility] 2017[facility] Allergies, Adverse Reactions, Alerts Allergy Allergy Status Severity Reaction(s) Onset Inactive Treating Comm ents Source Name Type Date Date Clinician Miguelina Cortesi Active 2017-[address] [facility]cin ty to 04-29 [facility] - adverse 00:00: fever. Medical reaction Center s Erythrom Adverse Active Info Not [facility] Reaction Available [facility] Family History Family Member Diagnosis Comments Start Date Stop Date Source Natural father Coronary artery disease [facility] Natural father Diabetes [facility] Natural father Hypertension [facility] Natural mother Breast cancer [facility] Social History Social Habit Start Date Stop Date Quantity Comments Source History of tobacco Current smoker [facility] use [facility] Sex Assigned [facility] Tobacco use and 2018-03-27 2018-03-27 Never used [facility] exposure 00:00:00 00:00:00 [facility] Smoking Status Start Date Stop Date Source Former smoker 2018-03-27 00:00:00 2018-03-27 00:00:00 [facility] Medications Ordered Filled Start Stop Current Ordering Indication Dosage Frequency Signature Comments Components Source Medication Medication Date Date Medication? Clinician (SIG) Name Name Topiramate Topiramate Yes Crista 1 tablet [facility] Immunizations Ordered Filled Immunization Date Status Comments Sourc e Immunization Name Name TDAP > 7 TDAP > 7 2019-10-21 Completed [facility] - Years-Adacel Years-Adacel 00:00:00 [facility] Procedures This patient has no known procedures. Encounters Start End Encounter Admission Attending Care Care Encounter Source Date/Time Date/Time Type Type Clinicians Facility Department ID 2020-01-14 2020-01-14 Outpatient [facility] [id number] [facility]00 [facility] Clinics 2020-01-12 2020-01-12 Outpatient [facility] [id number] [facility]00 [facility] ent [facility] 2019-12-18 2019-12-18 [facility] [id number] 18:18:00 18:18:00 [facility] Medicine [facility] ent [facility] 2019-12-11 2019-12-11 Outpatient [facility] [id number] 08:20:00 08:20:00 [facility] Outpati ent Clinics 2019-12-03 2019-12-03 Outpatient [facility] [id number] 10:27:00 10:27:00 [facility] Group Outpati ent Clinics 2019-11-30 2019-11-30 [facility] [id number] 09:40:00 09:40:00 [facility] Medicine Outpati ent Clinics 2019-11-25 2019-11-25 Orders Doctor ZIMMERMAN [id number] 00:00:00 00:00:00 Only Unassigned, NUBIA [id number] [facility] [id number] 2019-10-21 2019-10-21 [facility] [id number] 14:40:00 14:40:00 [facility] Medicine Outpati ent Clinics 2019-08-25 2019-08-25 [facility] [id number] 10:40:00 10:40:00 [facility] ent Clinics 2019-06-16 2019-06-16 [facility] [id number] 18:08:00 18:08:00 [facility] Outpati ent Clinics 2019-06-05 2019-06-05 Office Felicitas [facility] [id number] 08:01:07 09:06:54 Visit Cb Mcclure [id number] [place] [id number] Kimani [id number] [address] 2019-05-26 2019-05-26 [facility] [id number] 13:00:00 13:00:00 [facility] Medicine Outpati ent Clinics 2019-05-11 2019-05-11 [facility] [id number] 16:17:00 16:17:00 t [facility] Outpati ent Clinics 2019-04-30 2019-04-30 [facility] [id number] 11:00:00 11:00:00 [facility] Outpati ent Clinics 2019-01-27 2019-01-27 [facility] [id number] 08:00:00 08:00:00 [facility] Outpati ent Clinics 2019-01-19 2019-01-19 [facility] [id number] 14:31:00 14:31:00 [facility] Outpati ent Clinics 2019-01-13 2019-01-13 [facility] [id number] 16:00:00 16:00:00 [facility] Outpati ent Clinics 2019-01-09 2019-01-09 [facility] [id number] 16:16:00 16:16:00 [facility] Outpati ent Clinics 2018-12-11 2018-12-11 [facility] [id number] 11:00:00 11:00:00 [facility] Outpati ent Clinics Results Test Description Test Time Test Comments Results Result Sour e Comments TISSUE EXAM 2018-05-24 Surgical Pathology Report 13:16:00 Case: [id number] Authorizing Provider: Robert Hightower MD Collected: 03/06/2018 1828 Ordering Location: [facility] Received: 03/07/2018 0900 SERVICES Pathologist: Blu Bowers MD Specimen: Tumor The following results were reported by [employer]. Please see attached reports.PD-L1 22C3 FDA analysis confirms HIGH EXPRESSIONBRAF gene rearrangement is NOT DETECTEDROS1 gene rearrangement is NOT DETECTEDALK gene rearrangement is NOT DETECTEDEGFR mutations in exons 18, 19, 20 T790M and other mutations, 21Addendum electronically signed by Blu Bowers MD on 05/24/2018 at 1:16 PMBRAIN, CEREBELLUM, CRANIOTOMY:METASTATIC ADENOCARCINOMA WITH FOCAL SQUAMOUS DIFFERENTIATION (SEE COMMENT) Signing Pathologist Direct Phone Line: [phone] y signed by Blu Bowers MD on [...] tumor cells. Tumor is negative for p63. 34886; 77489; 82278 x 6Cancer of cerebellumTumor of craniumThe specimen [...] stains. Immunohistochemistry technical testing was performed at [facility], Pathology Laboratory where it was developed [...] developed and its performance characteristics determined by [facility], Pathology Laboratory. It has not been [...] (test 174 mg/dL 70-110 H TESTED AT [facility] [address] code = 1538) [facility] 7703 0 POCT-GLUCOSE [id number] 12:07:00 Test Item Value Reference Range Interpretation Comments POC-GLUCOSE METER 114 mg/dL 70-110 H TESTED AT [facility] 6720 (BEAKER) (test code = SHELLY Bill [facility] 1538) 28554 POCT-GLUCOSE [id number] 07:14:00 Test Item Value Reference Range Interpretation Comments POC-GLUCOSE METER 104 mg/dL 70-110 TESTED AT [facility] 6720 (BEAKER) (test code = [facility] Landy [facility] 1538) [address] BASIC METABOLIC [id number] 05:46:00 Test Item Value Reference Range Interpretation [...] ESTIMATED GFR. CBC W/PLT COUNT & AUTO [id number] 05:20:00 Test Item Value Reference Range Interpretation [...] PERCENT (BEAKER) (test code = 2801) POCT-GLUCOSE [id number] 21:30:00 Test Item Value Reference Range Interpretation Comments POC-GLUCOSE METER 111 mg/dL 70-110 H TESTED AT [facility] 6720 (BEAKER) (test code = SHELLY [place] 1538) 22160 POCT-GLUCOSE [id number] 18:19:00 Test Item Value Reference Range Interpretation Comments POC-GLUCOSE METER 175 mg/dL 70-110 H TESTED AT [facility] 6720 (BEAKER) (test code = SHELLY [place] 1538) [address] POCT-GLUCOSE [id number] 08:28:00 Test Item Value Reference Range Interpretation Comments POC-GLUCOSE METER 143 mg/dL 70-110 H TESTED AT [facility] 6720 (BEAKER) (test code = SHE[place] 1538) [address] BASIC METABOLIC [id number] 06:32:00 Test Item Value Reference Range Interpretation [...] ESTIMATED GFR. CBC W/PLT COUNT & AUTO [id number] 06:29:00 Test Item Value Reference Range Interpretation [...] PERCENT (BEAKER) (test code = 2801) POCT-GLUCOSE [id number] 21:28:00 Test Item Value Reference Range Interpretation Comments POC-GLUCOSE METER 170 mg/dL 70-110 H TESTED AT [facility] 6720 [facility] (test code = SHELLY Bill [facility] 1538) [address] POCT-GLUCOSE [id number] 18:02:00 Test Item Value Reference Range Interpretation Comments POC-GLUCOSE METER 180 mg/dL 70-110 H TESTED AT [facility] 6720 ([facility] (test code = SHELLY Bill [facility] 1538) [address] POCT-GLUCOSE [id number] 13:34:00 Test Item Value Reference Range Interpretation Comments POC-GLUCOSE METER 235 mg/dL 70-110 H TESTED AT [facility] 6720 (NEENA) (test code = [place] 1538) [address] MR, BRAIN, [id number] 12:29:00FINAL REPORT MRI Brain with and without [...] likely reactive in nature. Signed: Daysi Woodward MDReport Verified Date/Time: 03/08/2018 12:29:16 Reading Location: [address] Neuro Reading Room W/PLT COUNT & AUTO [id number] 07:59:00 Test Item Value Reference Range Interpretation [...] Received comment: User comments: Slide comments:BASIC METABOLIC [id number] 04:18:00 Test Item Value Reference Range Interpretation [...] DATA TO CALCULA TE ESTIMATED GFR. POCT-GLUCOSE [id number] 23:21:00 Test Item Value Reference Range Interpretation Comments POC-GLUCOSE METER 122 mg/dL 70-110 H TESTED AT [facility] 6720 (BEAKER) (test code = SHE[place] 1538) [address] POCT-GLUCOSE [id number] 22:02:00 Test Item Value Reference Range Interpretation Comments POC-GLUCOSE METER 122 mg/dL 70-110 H TESTED AT [facility] 6720 (BEAKER) (test code = SHELLY [place] 1538) [address] POCT-GLUCOSE [id number] 18:27:00 Test Item Value Reference Range Interpretation Comments POC-GLUCOSE METER 120 mg/dL 70-110 H TESTED AT [place] [address] (BEAKER) (test code = SHELLY Bill [facility] 1538) 79166 POCT-GLUCOSE [id number] 12:26:00 Test Item Value Reference Range Interpretation Comments POC-GLUCOSE METER 130 mg/dL 70-110 H TESTED AT [place] [address] (BEAKER) (test code = SHELLY Bill [facility] 1538) [address] POCT-GLUCOSE [id number] 08:44:00 Test Item Value Reference Range Interpretation Comments POC-GLUCOSE METER 141 mg/dL 70-110 H TESTED AT [place] [address] (BEAKER) (test code = SHELLY Bill [facility] 1538) 89194 CBC W/PLT COUNT & AUTO [id number] 07:37:00 Test Item Value Reference Range Interpretation [...] Received comment: User comments: Slide comments:BASIC METABOLIC [id number] 04:29:00 Test Item Value Reference Range Interpretation Comments SODIUM (BEAKER) 134 meq/L 136-145 L (test code = 381) POTASSIUM (BEAKER) 4.3 meq/L 3.5-5.1 (test code = 379) CHLORIDE (BEAKER) 104 meq/L 98-107 (test code = 382) CO2 (BEAKER) (test 23 meq/L 22-29 code = 355) BLOOD UREA NITROGEN 18 mg/dL 7-21 (BEAKER) (test code = 354) CREATININE (BEAKER) 0.63 mg/dL 0.57-1.25 (test code = 358) GLUCOSE RANDOM 145 mg/dL 70-105 H (BEAKER) (test code = 652) CALCIUM (BEAKER) 8.8 mg/dL 8.4-10.2 (test code = 697) EGFR ([facility]) (test mL/min/1.73 INSUFFIC IENT CLINICAL code = 1092) sq m DATA TO CALCULA TE ESTIMATED GFR. [id number] 04:28:00 Test Item Value Reference Range Interpretation Comments PHOSPHORUS ([facility] (test code = 3.4 mg/dL 2.3-4.7 604) [id number] 04:28:00 Test Item Value Reference Range Interpretation Comments MAGNESIUM (BEDESTINY) (test code = 1.9 mg/dL 1.6-2.6 627) POCT-GLUCOSE [id number] 22:29:00 Test Item Value Reference Range Interpretation Comments POC-GLUCOSE METER 147 mg/dL 70-110 H TESTED AT [place] [address] ([facility]) (test code = [facility] 1538) [address] POCT-GLUCOSE [id number] 12:29:00 Test Item Value Reference Range Interpretation Comments POC-GLUCOSE METER 87 mg/dL 70-110 TESTED AT [place] [address] ([facility]) (test code = [facility] [address] 1538) POCT-GLUCOSE [id number] 08:21:00 Test Item Value Reference Range Interpretation Comments POC-GLUCOSE METER 122 mg/dL 70-110 H TESTED AT [place] [address] ([facility]) (test code = [facility] 1538) [address] [id number] 05:32:00 Test Item Value Reference Range Interpretation Comments PROTIME (DESTINY) (test code = 13.1 seconds 11.7-14.7 759) INR ([facility]) (test code = 370) 1.0 <=5.9 PARTIAL THROMBOPLASTIN TIME 24.2 seconds 22.5-36.0 ([facility]) (test code = 760) RECOMMENDED COUMADIN/WARFARIN INR THERAPY RANGESSTANDARD DOSE: 2.0 - 3.0 Includes: PROPHYLAXIS forvenous thrombosis, systemic embolization; TREATMENT for venous thrombosis and/or pulmonary embolus.HIGH RISK: Target INR is 2.5-3.5 for patients with mechanical heart valves.POCT-GLUCOSE [id number] 05:17:00 Test Item Value Reference Range Interpretation Comments POC-GLUCOSE METER 127 mg/dL 70-110 H TESTED AT [facility] 6720 (BEAKER) (test code = [place] 1538) [address] BASIC METABOLIC [id number] 05:16:00 Test Item Value Reference Range Interpretation [...] ESTIMATED GFR. CBC W/PLT COUNT & AUTO [id number] 04:56:00 Test Item Value Reference Range Interpretation [...] PERCENT (BEAKER) (test code = 2801) POCT-GLUCOSE [id number] 22:07:00 Test Item Value Reference Range Interpretation Comments POC-GLUCOSE METER 157 mg/dL 70-110 H TESTED AT [facility] 6720 ([facility]) (test code = SHELLY Bill [facility] 1538) 97[address] POCT-GLUCOSE [id number] 16:55:00 Test Item Value Reference Range Interpretation Comments POC-GLUCOSE METER 146 mg/dL 70-110 H TESTED AT [facility] 6720 ([facility]) (test code = [facility] Landy [facility] 1538) [address] TISSUE [id number] 15:23:00Surgical Pathology Report Case: [id number] Authorizing Provider: Robert Tirado MD Collected: 03/04/2018916 Ordering Location: [facility] Received: 03/04/2018 0921 SERVICES Pathologist: Terry Stanford MD Specimens: A) - Lung, Right Upper Lobe, Right upper lobe endobronchial biopsy B) -Lung, Right Upper Lobe, EBBX. Reflex genetic markers. PART A RIGHT UPPER LOBE LUNG, ENDOBRONCHIAL BIOPSY:ADENOCARCINOMA.SEE DIAGNOSTIC COMMENT.PART B RIGHT UPPER LOBE LUNG, ENDOBRONCHIAL BIOPSY:ADENOCARCINOMA.SEE DIAGNOSTIC COMMENT. Signing Pathologist Direct Phone Line:[phone] signed by Terry Stanford MD on 03/05/2018 at 3:23 PMImmunohistochemical studies performed on block B1 demonstrate the tumor cells to be positive for TTF1 and Napsin A. They are negative for ER and PAX8. The immunoprofile is most compatible with an adenocarcinoma of pulmonary origin.99270u0, 07855, 43164l5, 01946M. Right upper lobe endobronchial biopsy. B. Right [...] stains. BLOCK B1- TTF1, NAPSIN A, ER, GJZ1Olbchaqkldecccjkcetc technical testing was performed at [facility], Pathology Laboratory where it was developed [...] complexity clinical laboratory testing.FINE NEEDLE ASPIRATE BY [id number] 12:41:00Medical Cytology Report Case: [id number] Authorizing Provider: Robert Tirado MD Collected: 03/04/2018 1023 Ordering Location: [address]: 03/04/2018 1244 Service Pathologist: Ben Vila MD Specimen: Lymph Node, Interlobar, Right, Station 11R LYMPH NODE, INTERLOBAR RIGHT, STATION 11R EBUS FNA BY CLINICIAN (CYTOSPINS OF ASPIRATE): - NEGATIVE FOR MALIGNANCY - LYMPHOCYTES PRESENT Signing Pathologist Direct Phone Line: [phone] signed by Ben Garcia MD on 03/05/2018 at 12:41 PMPlease also see surgical pathology report [id number] and cytopathology reports [id number], 3646, 3647 and 3648. 57469Iptt massLYMPH NODE, INTERLOBAR RIGHT, STATION 11R EBUS FNA40 mls in cytorich red; 2 cytospinsCollected: [id number]: [id number] interpretation of this case included the use of immunohistochemistry or special stains. Immunohistochemistry technical testing was performed at [facility], Pathology Laboratory where it was developed [...] certified under the Clinical Laboratory Improvement Amendments ki5928 (CLIA-88) as qualified to perform high complexity clinical laboratory testing.[facility], Department of Pathology, [address] [place] [address], [facility], [facility], [address] [place] [address], [facility]Do[facility], Department of Pathology, [address] [place] [address], RJLL NEEDLE ASPIRATE BY [id number] 12:40:00Medical Cytology Report Case: [id number] Authorizing Provider: Robert Tirado MD Collected: 03/04/2018 1008 Ordering Location: [address] Received: 03/04/2018 1244 Service Pathologist: Ben Vila MD Specimen: Lymph Node, Lower Paratracheal, Right, Station 4R LYMPH NODE, LOWER PARATRACHEAL, RIGHT, STATION 4R EBUS FNA BY CLINICIAN (CYTOSPINS AND CELL BLOCK OF ASPIRATE): - NEGATIVE FOR MALIGNANCY Signing Pathologist Direct Phone Line: [phone] signed by Ben Vila MD on 03/05/2018 at 12:40 PMSmears and cell block show good sampling of anthracotic lymph node without granuloma or neoplasm.Please also see surgical pathology report [id number] and cytopathology reports [id number], 3646, 3647 and 3649. 15531, 39005Neou massLYMPH NODE, LOWER PARATRACHEAL, RIGHT, STATION 4R EBUS FNA40 mls in cytorich red; 2 cytospins, cell blockCollected: [id number]: [id number] interpretation of this case included the use of immunohistochemistry or special stains. Immunohistochemistry technical testing was performed at [facility], Pathology Laboratory where it was developed [...] qualified to perform high complexity clinical laboratory testing.[facility], Department of Pathology, [address] [place] [address], [facility]swqqf[facility], Department of Pathology, [address] [place] [address], NklrjkDo[facility], Department of Pathology, [address] [place] [address], DFXJ NEEDLE ASPIRATE BY [id number] 12:38:00Medical Cytology Report Case: [id number] Authorizing Provider: Robert Tirado MD Collected: 03/04/2018 1002 Ordering Location: [address] Received: 03/04/2018 1244 Service Pathologist: Ben Vila MD Specimen: Lymph Node, Subcarinal, Station 7 LYMPH NODE, SUBCARINAL, STATION 7 EBUS FNA BY CLINICIAN (CYTOSPINS AND CELL BLOCK OF ASPIRATE): - NEGATIVE FOR MALIGNANCY Signing Pathologist Direct Phone Line: [phone] signed by Ben Vila MD on 03/05/2018 at 12:38 PMSmears and cell block show good sampling of anthracotic lymph nodewithout granuloma or neoplasm.Please also see surgical pathology report [id number] and cytopathology reports [id number], 3646, 3648 and 3649. 40510, 87414Ufbt massLYMPH NODE, SUBCARINAL, STATION 7 FNAPrepared cell block(A2) and 2 cytospins from 40 ml cytorich red fixative specimen Collected: [id number]: [id number] interpretation of this case included the use of immunohistochemistry or special stains.Immunohistochemistry technical testing was performed at [facility], Pathology L aboratory where it was developed [...] qualified to perform high complexity clinical laboratory testing.[facility], Department of Pathology, [address] [place] [address], UdlzgfDo[facility], Department of Pathology, [address] [place] [address], JhhcuaDoctors [facility], Department of Pathology, [address] [place] [address], PDTR NEEDLE ASPIRATE BY [id number] 12:35:00Medical Cytology Report Case: [id number] Authorizing Provider: Robert Tirado MD Collected: 03/04/2018 1001 Ordering Location: [address] Received: 03/04/2018 1244 Service Pathologist: Ben Vila MD Specimen: Lymph Node, Lower Paratracheal, Left, Station 4L LYMPH NODE, LOWER PARATRACHEAL, LEFT, STATION 4L, FNA BY CLINICIAN (CYTOSPINS OF ASPIRATE): - NEGATIVE FOR MALIGNANCY PREDOMINANTLY BRONCHIAL EPITHELIAL CELLS Signing Pathologist Direct Phone Line: [phone] signed by Ben Vila MD on 03/05/2018 at 12:35 PMPlease also see surgical pathology report [id number] and cytopathology reports [id number], 3647, 3648 and 3649. 82164Jrop massLYMPH NODE, LOWER PARATRACHEAL, LEFT, STATION 4L FNAPrepared 2 cytospins from 40 ml cytorich red fixative sampleCollected: [id number]: [id number] interpretation of this case included the use of immunohistochemistry or special stains. Immunohistochemistry technical testing was performed at [facility], Pathology Laboratory where it was developed [...] qualified to perform high complexity clinical laboratory testing.[facility], Department of Pathology, [address] [place] [address], EmitbeDo[facility], Department of Patho logy, [address] [place] [address], DisgrxDoctors [facility], Department of Pathology, [address] [place] [address], FDHB-GLUCOSE [id number] 12:34:00 Test Item Value Reference Range Interpretation Comments POC-GLUCOSE METER 119 mg/dL 70-110 H TESTED AT [place] [address] ([facility]) (test code = SHELLY Bill [facility] 1538) [address] FINE NEEDLE ASPIRATE BY [id number] 12:34:00Medical Cytology Report Case: [id number] Authorizing Provider: Robert Tirado MD Collected: 03/04/2018 1001 Ordering Location: [address] Received: 03/04/2018 1244 Service Pathologist: Ben Vila MD Specimen: Lymph Node, Interlobar, Left, Station 11L LYMPH NODE, INTERLOBAR, LEFT, STATION 11L, FNA BY CLINICIAN (CYTOSPINS AND CELL BLOCK OF ASPIRATE): - NEGATIVE FOR MALIGNANCY Signing Pathologist Direct Phone Line: [phone] signed by Ben Vila MD on 03/05/2018 at 12:34 PMSmears and cell block show good sampling of anthracotic lymph node without granuloma or neoplasm.Please also see surgical pathology report [id number] and cytopathology reports [id number], 3647, 3648 and 3649. 66128, 51727Cxqq massLYMPH NODE, INTERLOBAR, LEFT, [id number] FNAPrepared cell block(A2) and 2 cytospins from 45 ml cytorich red fixative sampleCollected: [id number]: [id number] interpretation of this case included the use of immunohistochemistry or special stains. Immunohistochemistry technical testing was performed at [facility], Pathology Laboratory where it was developed [...] qualified to perform high complexity clinical laboratory testing.[facility], Department of Pathology, [address] [place] [address], MjchsxDo[facility], Department of Pathology, [address] [place] [address], VzhjowDoctors Hospital of [facility], Department of Pathology, [address] [place] [address], TVDT-GLUCOSE [id number] 08:25:00 Test Item Value Reference Range Interpretation Comments POC-GLUCOSE METER 114 mg/dL 70-110 H TESTED AT [place] [address] (NEENA) (test code = SHELLY Bill [facility] 1538) [address] BASIC METABOLIC [id number] 05:45:00 Test Item Value Reference Range Interpretation [...] ESTIMATED GFR. CBC W/PLT COUNT & AUTO [id number] 05:42:00 Test Item Value Reference Range Interpretation [...] PERCENT (BEAKER) (test code = 2801) BLOOD [id number] 23:01:00 Test Item Value Reference Range Interpretation Comments CULTURE ([facility]) (test No growth in 5 days code = 1095) POCT-GLUCOSE [id number] 20:32:00 Test Item Value Reference Range Interpretation Comments POC-GLUCOSE METER 122 mg/dL 70-110 H TESTED AT [facility] 6720 ([facility]) (test code = SHELLY [place] 1538) [address] POCT-GLUCOSE [id number] 17:53:00 Test Item Value Reference Range Interpretation Comments POC-GLUCOSE METER 199 mg/dL 70-110 H TESTED AT [facility] 6720 ([facility]) (test code = SHELLY [place] 1538) [address] EBUS FNA [id number] 14:00:00 Test Item Value Reference Range Interpretation Comments CYTOLOGY RESULT POINTER See Separate Report (BEAKER) (test code = 2629) EBUS FNA [id number] 14:00:00 Test Item Value Reference Range Interpretation Comments CYTOLOGY RESULT POINTER See Separate Report (BEAKER) (test code = 2629) EBUS FNA [id number] 14:00:00 Test Item Value Reference Range Interpretation Comments CYTOLOGY RESULT POINTER See Separate Report (BEAKER) (test code = 2629) EBUS FNA [id number] 14:00:00 Test Item Value Reference Range Interpretation Comments CYTOLOGY RESULT POINTER See Separate Report (BEAKER) (test code = 2629) EBUS FNA [id number] 14:00:00 Test Item Value Reference Range Interpretation Comments CYTOLOGY RESULT POINTER See Separate Report (BEAKER) (test code = 2629) POCT-GLUCOSE [id number] 12:06:00 Test Item Value Reference Range Interpretation Comments POC-GLUCOSE METER 114 mg/dL 70-110 H TESTED AT [facility] 6720 ([facility]) (test code = SHELLY Bill [place] 1538) [address] BLOOD [id number] 10:00:00 Test Item Value Reference Range Interpretation Comments CULTURE ([facility]) (test No growth in 5 days code = 1095) POCT-GLUCOSE [id number] 08:22:00 Test Item Value Reference Range Interpretation Comments POC-GLUCOSE METER 120 mg/dL 70-110 H TESTED AT [facility] 67 ([facility]) (test code = SHELLY Bill [place] 1538) [address] [id number] 06:39:00 Test Item Value Reference Range Interpretation Comments PARTIAL THROMBOPLASTIN TIME 25.2 seconds 22.5-36.0 ([facility]) (test code = 760) PROTHROMBIN [id number] 06:38:00 Test Item Value Reference Range Interpretation Comments PROTIME (AKER) (test code = 13.6 seconds 11.7-14.7 759) INR ([facility]) (test code = 370) 1.0 <=5.9 RECOMMENDED COUMADIN/WARFARIN INR THERAPY RANGESSTANDARD DOSE: 2.0 - 3.0 Includes: PROPHYLAXIS forvenous thrombosis, systemic embolization; TREATMENT for venous thrombosis and/or pulmonary embolus.HIGH RISK: Target INR is 2.5-3.5 for patients with mechanical heart valves.BASIC METABOLIC [id number] 06:38:00 Test Item Value Reference Range Interpretation [...] ESTIMATED GFR. CBC W/PLT COUNT & AUTO [id number] 06:19:00 Test Item Value Reference Range Interpretation [...] PERCENT (BEAKER) (test code = 2801) POCT-GLUCOSE [id number] 22:29:00 Test Item Value Reference Range Interpretation Comments POC-GLUCOSE METER 175 mg/dL 70-110 H TESTED AT [facility] 6720 (BEAKER) ([facility] = [facility] [address] BONE AND/OR JOINT IMAGING, WHOLE [id number] 15:34:00No histologic dx yet, but brain met with lung mass.FINAL REPORT PROCEDURE: BONE SCAN, WHOLE BODY CPT CODE: 54562 INDICATION: Right lung cancer with cerebellar metastasis [...] MDReport Verified Date/Time: 03/03/2018 15:34:30 Reading Location: [address] Reading Room POCT-GLUCOSE [id number] 11:44:00 Test Item Value Reference Range Interpretation Comments POC-GLUCOSE METER 180 mg/dL 70-110 H TESTED AT [facility] 6720 (BEAKER) (test code = SHELLY [place] 1538) [address] POCT-GLUCOSE [id number] 08:31:00 Test Item Value Reference Range Interpretation Comments POC-GLUCOSE METER 111 mg/dL 70-110 H TESTED AT [facility] 6720 (BEAKER) (test code = SHELLY [place] 1538) [address] CBC W/PLT COUNT & AUTO [id number] 05:37:00 Test Item Value Reference Range Interpretation [...] PERCENT (BEAKER) (test code = 2801) POCT-GLUCOSE [id number] 21:27:00 Test Item Value Reference Range Interpretation Comments POC-GLUCOSE METER 202 mg/dL 70-110 H TESTED AT [place] [address] ([facility] (test code = [facility] 1538) [address] POCT-GLUCOSE [id number] 13:34:00 Test Item Value Reference Range Interpretation Comments POC-GLUCOSE METER 94 mg/dL 70-110 TESTED AT [place] [address] ([facility] (test code = [facility] [address] 1538) POCT-GLUCOSE [id number] 08:43:00 Test Item Value Reference Range Interpretation Comments POC-GLUCOSE METER 118 mg/dL 70-110 H TESTED AT [place] [address] ([facility] (test code = [facility] 1538) [address] URINALYSIS W/ REFLEX URINE [id number] 07:40:00 Test Item Value Reference Range Interpretation [...] code = 516) SOURCE(BEAKER) (test code = 2444) BASIC METABOLIC [id number] 07:17:00 Test Item Value Reference Range Interpretation [...] ESTIMATED GFR. CBC W/PLT COUNT & AUTO [id number] 06:15:00 Test Item Value Reference Range Interpretation [...] % 0-1 PERCENT (BEAKER) (test code = 2802) POCT-GLUCOSE [id number] 21:08:00 Test Item Value Reference Range Interpretation Comments POC-GLUCOSE METER 175 mg/dL 70-110 H TESTED AT [facility] 6720 (BEAKER) (test code = RAFAELDARCY [place] 1538) [address] POCT-GLUCOSE [id number] 17:48:00 Test Item Value Reference Range Interpretation Comments POC-GLUCOSE METER 114 mg/dL 70-110 H TESTED AT [facility] 6720 (BEAKER) (test code = SHELLY Bill [place] 1538) [address] POCT-GLUCOSE [id number] 12:27:00 Test Item Value Reference Range Interpretation Comments POC-GLUCOSE METER 119 mg/dL 70-110 H TESTED AT [facility] 6720 (BEAKER) (test code = SHELLY Bill [facility] 1538) [address] BASIC METABOLIC [id number] 08:12:00 Test Item Value Reference Range Interpretation [...] ESTIMATED GFR. CBC W/PLT COUNT & AUTO [id number] 07:21:00 Test Item Value Reference Range Interpretation [...] PERCENT (BEAKER) (test code = 2801) POCT-GLUCOSE [id number] 06:08:00 Test Item Value Reference Range Interpretation Comments POC-GLUCOSE METER 113 mg/dL 70-110 H TESTED AT [facility] 6720 ([facility] (test code = SHELLY [place] 1538) [address] POCT-GLUCOSE [id number] 18:58:00 Test Item Value Reference Range Interpretation Comments POC-GLUCOSE METER 117 mg/dL 70-110 H TESTED AT [facility] 6720 ([facility] (test code = SHELLY Bill [place] 1538) [address] CT, CHEST, WITH [id number] 15:20:00FINAL REPORT CT of the Chest, abdomen [...] MDReport Verified Date/Time: 02/28/2018 15:20:36 Reading Location: [address] Body Reading Room CT, [id number] 15:20:00FINAL REPORT CT of the Chest, abdomen [...] MDReport Verified Date/Time: 02/28/2018 15:20:36 Reading Location: [address] Body Reading Room POCT-GLUCOSE [id number] 08:55:00 Test Item Value Reference Range Interpretation Comments POC-GLUCOSE METER 125 mg/dL 70-110 H TESTED AT [place] [address] ([facility]) (test code = SHELLY Bill [place] 1538) [address] MR, BRAIN, [id number] 07:59:00STEALTH protocolFINAL REPORT MRI Brain with and [...] MDReport Verified Date/Time: 02/28/2018 07:59:07 Reading Location: [address] Neuro Reading Room POCT- GLUCOSE [id number] 06:39:00 Test Item Value Reference Range Interpretation Comments POC-GLUCOSE METER 150 mg/dL 70-110 H TESTED AT [facility] 6720 ([facility]) (test code = SHELLY Bill [place] 1538) [address] BASIC METABOLIC [id number] 05:51:00 Test Item Value Reference Range Interpretation [...] ESTIMATED GFR. CBC W/PLT COUNT & AUTO [id number] 04:09:00 Test Item Value Reference Range Interpretation [...] PERCENT (BEAKER) (test code = 2801) POCT-GLUCOSE [id number] 00:17:00 Test Item Value Reference Range Interpretation Comments POC-GLUCOSE METER 122 mg/dL 70-110 H TESTED AT [place] [address] ([facility]) (test code = [facility] 1538) [address] POCT-GLUCOSE [id number] 18:35:00 Test Item Value Reference Range Interpretation Comments POC-GLUCOSE METER 134 mg/dL 70-110 H TESTED AT [place] [address] ([facility]) (test code = [facility] 1538) [address] POCT-GLUCOSE [id number] 12:10:00 Test Item Value Reference Range Interpretation Comments POC-GLUCOSE METER 146 mg/dL 70-110 H TESTED AT [place] [address] ([facility]) (test code = [facility] 1538) [address] [id number] 07:56:00 Test Item Value Reference Range Interpretation Comments PROCALCITONIN ([facility]) (test code = < ng/mL <0.05 3036) SEPSIS RISK (ng/mL)Low: 0.05-0.50Intermediate: 0.51-2.00High: >=2.01LACTATE DEHYDROGENASE (LDH)2018-02-27 06:52:00 Test Item Value Reference Range Interpretation Comments LACTATE DEHYDROGENASE ([facility]) (test 146 U/L 125-220 code = 635) C-REACTIVE [id number] 06:52:00 Test Item Value Reference Range Interpretation Comments C-REACTIVE PROTEIN (BEAKER) (test 8.22 mg/dL 0.00-0.50 H code = 676) LACTIC ACID, ARTERIAL, WHOLE [id number] 06:01:00 Test Item Value Reference Range Interpretation Comments LACTATE BLOOD ARTERIAL (2) 1.0 mmol/L 0.5-2.2 (BEAKER) (test code = 2874) BASIC METABOLIC [id number] 05:52:00 Test Item Value Reference Range Interpretation [...] DATA TO CALCULA TE ESTIMATED GFR. TROPONIN [id number] 05:48:00 Test Item Value Reference Range Interpretation Comments TROPONIN I (BEAKER) (test code = 397) < ng/mL 0.00-0.03 [id number] 05:43:00 Test Item Value Reference Range Interpretation Comments MAGNESIUM (BEAKER) 2.1 mg/dL 1.6-2.6 Specimen slightly (test code = 627) hemolyzed [id number] 05:43:00 Test Item Value Reference Range Interpretation Comments PHOSPHORUS (BEAKER) 4.1 mg/dL 2.3-4.7 Specimen slightly (test code = 604) hemolyzed CBC W/PLT COUNT & AUTO [id number] 05:34:00 Test Item Value Reference Range Interpretation [...] 417) IMMATURE GRANULOCYTES-RELATIVE 1 % 0-1 PERCENT (NEENA) (test code = 2801) POCT-GLUCOSE [id number] 05:32:00 Test Item Value Reference Range Interpretation Comments POC-GLUCOSE METER 118 mg/dL 70-110 H TESTED AT [facility] 6720 (NEENA) (test code = SHELLY [place] 1538) [address] [id number] 05:20:00 Test Item Value Reference Range Interpretation Comments PROTIME (NEENA) (test code = 13.7 seconds 11.7-14.7 759) INR (NEENA) (test code = 370) 1.1 <=5.9 PARTIAL THROMBOPLASTIN TIME 26.4 seconds 22.5-36.0 (NEENA) (test code = 760) RECOMMENDED COUMADIN/WARFARIN INR THERAPY RANGESSTANDARD DOSE: 2.0 - 3.0 Includes: PROPHYLAXIS forvenous thrombosis, systemic embolization; TREATMENT for venous thrombosis and/or pulmonary embolus.HIGH RISK: Target INR is 2.5-3.5 for patients with mechanical heart valves.PROTHROMBIN [id number] 05:19:00 Test Item Value Reference Range Interpretation Comments PROTIME (NEENA) (test code = 13.7 seconds 11.7-14.7 759) INR (NEENA) (test code = 370) 1.1 <=5.9 RECOMMENDED COUMADIN/WARFARIN INR THERAPY RANGESSTANDARD DOSE: 2.0 - 3.0 Includes: PROPHYLAXIS forvenous thrombosis, systemic embolization; TREATMENT for venous thrombosis and/or pulmonary embolus.HIGH RISK: Target INR is 2.5-3.5 for patients with mechanical heart valves.
[2020-01-15 14:54] LABS: Urine Blood NEGATIVE (NEG); Urine Glucose NEGATIVE (NEG); Urine Protein NEGATIVE (NEG); Urine Specific Gravity 1.015 (1.005-1.030)
[2020-01-15] MEDS ORDERED: ONDANSETRON 4 MG/2 ML VIAL ONE (16:12)
[2020-01-15] MEDS ORDERED: NA CHLORIDE 0.9% 500 ML ONE (16:12)
[2020-01-15] MEDS ORDERED: MORPHINE 4 MG/ML SYR ONE ×2 (16:12→17:55)
[2020-01-15 16:26] LABS: Absolute Lymphocytes (CBC) 2.4 K/uL (0.7-4.9); Basophils % 0.3 % (0-1.3); Hematocrit 36.1 % (36.0-45.0); Lymphocytes % 34.4 % (15.3-44.8); RBC Red Blood Cell Count 3.75 M/uL (3.86-4.86)
[2020-01-15 16:43] LABS: ALT/SGPT 54 U/L (12-78); AST/SGOT 35 U/L (15-37); Albumin 3.5 g/dL (3.4-5.0); Alkaline Phosphatase 119 U/L (45-117); BUN Blood Urea Nitrogen 4 mg/dL (7-18); Bicarbonate 24 mmol/L (21-32); Bilirubin Direct < 0.1 mg/dL (0-0.2); Bilirubin Total 0.2 mg/dL (0.2-1.0); Glucose Level 91 mg/dL (74-106); Lipase 101 U/L (73-393); Potassium 3.6 mmol/L (3.5-5.1); Protein, Total 7.8 g/dL (6.4-8.2); Sodium Level 141 mmol/L (136-145); Troponin (Emerg Dept Use Only) < 0.02 ng/mL (0.0-0.045)
--- NOTE | 2020-01-15 17:21 | RAD REPORT ---
EXAM DESCRIPTION: CT - Chest Abdomen Pelvis W Cont - 01/15/2020 5:10 pm CLINICAL HISTORY: Chest and abdomen pain. epigastric pain COMPARISON: Thorax W/ Con dated 10/26/2019 TECHNIQUE: Approximately 100 mL nonionic IV contrast was administered to the patient. All CT scans are performed using dose optimization technique as appropriate and may include automated exposure control or mA/KV adjustment according to patient size. FINDINGS: Right upper lobe lung mass is again noted, currently measuring 6.1 x 4.3 cm, fractionally diminished in size since comparative study dated 10/26/2019.Prominent diffuse emphysema is noted.No p leural or pericardial effusion.Mild adenopathy is seen in the right aspect of the mediastinum and rig ht hilum, slightly reduced in size since prior study. Pretracheal lymph node is most prominent measur ing 9 mm in short axis. Mild diffuse fatty liver is seen. Cholecystectomy clips. The spleen, adrenal glands, pancreas and kid neys are within normal limits. No bowel obstruction, free air, free fluid or abscess. Normal appendix. Sigmoid diverticulosis coli i s seen. Mild wall thickening and reticulation of the adjacent fat is seen. No complication evident. N o pathologic lymphadenopathy in the abdomen or pelvis. No worrisome osseous finding. IMPRESSION: Fractional diminishment in size of the right upper lobe pulmonary mass since comparative study. An early/mild acute sigmoid diverticulitis is possible. Diffuse fatty liver.
--- NOTE | 2020-01-15 17:33 | EDPHYS ---
Physician Documentation [facility] Name: Albania Alfaro Age: 59 yrs Sex: Female : 1960 Arrival Date: 01/15/2020 Time: 13:46 Bed 14 Private MD: ED Physician Josef Alamo HPI: 01/14 15:27 This 59 yrs old Female presents to ER via Ambulatory with complaints of jmm Abdominal Pain, Diarrhea. 15:27 The patient presents with abdominal pain in the epigastric area. Onset: The jmm symptoms/episode began/occurred gradually, 10 day(s) ago. The symptoms do not radiate. Associated signs and symptoms: Pertinent positives: diarrhea, Pertinent negatives: shortness of breath, vomiting, vomiting blood. The symptoms are described as achy, crampy. Modifying factors: The symptoms are alleviated by nothing, the symptoms are aggravated by food. This is a 59 year old female with a history of lung cancer that presents to the ED with complaints of epigastric pain, diarrhea beginning approx 10 days ago. Patient prescribed flagyl 3 days ago without relief. Patient's most recent chemotherapy 2 weeks ago. . Historical: - Allergies: 13:50 Erythromycin; sv - PMHx: 13:50 Diverticulitis; Vertigo; lung cancer; sv - PSHx: 13:50 Cholecystectomy; Tubal ligation; brain tumor removal 2017; sv - Immunization history:: Adult Immunizations up to date. - Social history:: Smoking status: Patient denies any tobacco usage or history of. ROS: 15:27 Cardiovascular: Negative for chest pain, palpitations, and edema, Respiratory: Negative jmm for shortness of breath, cough, wheezing, and pleuritic chest pain. 15:27 Constitutional: Positive for fatigue. 15:27 Abdomen/GI: Positive for abdominal pain, diarrhea. 15:27 All other systems are negative. Exam: 15:27 Constitutional: This is a well developed, well nourished patient who is awake, alert, jmm and in no acute distress. Head/Face: atraumatic. Eyes: EOMI, no conjunctival erythema appreciated ENT: Moist Mucus Membranes Neck: Trachea midline, Supple Chest/axilla: Normal chest wall appearance and motion. Cardiovascular: Regular rate and rhythm. No edema appreciated Respiratory: Normal respirations, no respiratory distress appreciated 15:27 Back: Normal ROM Skin: General appearance color normal MS/ Extremity: Moves all extremities, no obvious deformities appreciated, no edema noted to the lower extremities Neuro: Awake and alert, normal gait Psych: Behavior is normal, Mood is normal, Patient is cooperative and pleasant 15:27 Abdomen/GI: Inspection: abdomen appears normal, Bowel sounds: normal, Palpation: soft, moderate abdominal tenderness, in the right upper quadrant. Vital Signs: 13:50 BP 110 / 73; Pulse 80; Resp 16; Temp 97.9; Pulse Ox 99% ; Weight 79.38 kg; Height 5 ft. sv 4 in. (162.56 cm); 16:38 BP 120 / 61; Pulse 72; Resp 16; Pulse Ox 99% on R/A; iw 13:50 Body Mass Index 30.04 (79.38 kg, 162.56 cm) sv MDM: 15:26 Patient medically screened. [facility] 17:30 Data reviewed: vital signs, nurses notes. Counseling: I had a detailed discussion with cata the patient and/or guardian regarding: the historical points, exam findings, and any diagnostic results supporting the discharge/admit diagnosis, lab results, radiology results, the need for outpatient follow up, to return to the emergency department if symptoms worsen or persist or if there are any questions or concerns that arise at home. ED course: I discussed the patient with Dr. Davila whom states the patient is safe for outpatient treatment. 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 . 01/14 14:11 Order name: Urine Dipstick--Ancillary (enter results); Complete Time: 16:45 01/14 15:26 Order name: Basic Metabolic Panel; Complete Time: 16:45 [facility] 01/14 15:26 Order name: CBC with Diff; Complete Time: 16:45 [facility] 01/14 15:26 Order name: Hepatic Function; Complete Time: 16:45 [facility] 01/14 15:26 Order name: Lipase; Complete Time: 16:45 [facility] 01/14 15:26 Order name: Troponin (emerg Dept Use Only); Complete Time: 16:45 [facility] 01/14 15:26 Order name: IV Saline Lock; Complete Time: 16:08 [facility] 01/14 15:26 Order name: Labs collected and sent; Complete Time: 16:08 [facility] 01/14 15:34 Order name: CT Chest, Abdomen, Pelvis - W/Contrast; Complete Time: 17:24 [facility] Administered Medications: 16:07 Drug: morphine 4 mg Route: IVP; Site: right wrist; iw 17:53 Follow up: Response: No adverse reaction; Pain is decreased iw 16:08 Drug: NS 0.9% 500 ml Route: IV; Rate: bolus; Site: right wrist; iw 16:50 Follow up: IV Status: Completed infusion iw 16:08 Drug: Zofran (Ondansetron) 4 mg Route: IVP; Site: right wrist; iw 17:15 Follow up: Response: No adverse reaction iw 17:51 Not Given (Physician Discretion): morphine 4 mg IVP once; RASS on ADMIN: Combtv4, Very iw Agttd3, Agttd2, Rstlss1, AlertClm0, Drwsy-1, Lt Sdtn-2, Mod Sdtn-3, Dp Sdtn-4, UnArsble-5 17:52 Drug: LevaQUIN 750 mg Route: PO; iw 17:53 Follow up: Response: No adverse reaction iw Disposition: 01/15 13:28 Co-signature as Attending Physician, Josef Alamo MD I agree with the assessment and kdr plan of care. Disposition: 01/15/20 17:32 Discharged to Home. Impression: Sigmoid Diverticulitis without perforation. - Condition is Stable. - Discharge Instructions: Diverticulitis. - Prescriptions for Levaquin 750 mg Oral Tablet - take 1 tablet by ORAL route once daily for 10 days; 10 tablet. Medrol (Nagi) 4 mg Oral Tablets, Dose Pack - take 1 tablet by ORAL route as directed - follow package instructions; 1 packet. - Medication Reconciliation Form, Thank You Letter, Antibiotic Education, Prescription Opioid Use form. - Follow up: Opal Kruger MD; When: 01/18/2020; Reason: Recheck today's complaints. Signatures: Dispatcher [employer] Nandini Parr, Josef Charles RN, MD MD kdr Mickail, Joel, PA PA jmm Williams, Irene, RN RN iw Corrections: (The following items were deleted from the chart) 01/14 17:53 17:32 01/15/2020 17:32 Discharged to Home. Impression: Sigmoid Diverticulitis without iw perforation. Condition is Stable. Forms are Medication Reconciliation Form, Thank You Letter, Antibiotic Education, Prescription Opioid Use. Follow up: Opal Alba; When: 01/18/2020; Reason: Recheck today's complaints. guillermo
--- NOTE | 2020-01-15 17:33 | ER ---
Nurse's Notes [facility] Name: Albania Alfaro Age: 59 yrs Sex: Female : 1960 Arrival Date: 01/15/2020 Time: 13:46 Bed 14 Private MD: Diagnosis: Sigmoid Diverticulitis without perforation Presentation: 01/14 13:48 Chief complaint: Patient states: diffuse abd pain, fatigue, and diarrhea since Saturday. sv Pt currently on chemotherapy for lung cancer. Pt had a teleconference with her PCP and prescribed Flagyl, has taken 2 days worth. Coronavirus screen: Client denies travel out of the [place] in the last 14 days. diarrhea, fatigue, Client presents with at least one sign or symptom that may indicate coronavirus-19. Standard/surgical mask placed on the client. Provider contacted for isolation considerations. Ebola Screen: No symptoms or risks identified at this time. Risk Assessment: Do you want to hurt yourself or someone else? Patient reports no desire to harm self or others. Onset of symptoms was January 12, 2020. 13:48 Method Of Arrival: Ambulatory sv 13:48 Acuity: AILYN 3 sv 13:50 Initial Sepsis Screen: Does the patient meet any 2 criteria? No. Patient's initial sv sepsis screen is negative. Does the patient have a suspected source of infection? No. Patient's initial sepsis screen is negative. Triage Assessment: 13:52 General: Appears in no apparent distress. uncomfortable, Behavior is calm, cooperative, sv appropriate for age. Pain: Complains of pain in abdomen. Neuro: Level of Consciousness is awake, alert, obeys commands, Gait is steady. Respiratory: Respiratory effort is even, unlabored. GI: Reports lower abdominal pain, upper abdominal pain, diarrhea. Historical: - Allergies: 13:50 Erythromycin; sv - PMHx: 13:50 Diverticulitis; Vertigo; lung cancer; sv - PSHx: 13:50 Cholecystectomy; Tubal ligation; brain tumor removal 2018; sv - Immunization history:: Adult Immunizations up to date. - Social history:: Smoking status: Patient denies any tobacco usage or history of. Screenin:18 Abuse screen: Denies threats or abuse. Denies injuries from another. Nutritional iw screening: No deficits noted. Tuberculosis screening: No symptoms or risk factors identified. Fall Risk None identified. Assessment: 16:09 General: Appears in no apparent distress. Behavior is calm, cooperative. Pain: iw Complains of pain in right upper quadrant and abdomen. Neuro: Level of Consciousness is awake, alert, obeys commands, Oriented to person, place, time, situation, Moves all extremities. Full function. Cardiovascular: Patient's skin is warm and dry. Respiratory: Respiratory effort is even, unlabored, Respiratory pattern is regular, symmetrical. GI: Bowel sounds present X 4 quads. Abd is soft X 4 quads Abdomen is tender to palpation in right upper quadrant and left upper quadrant Reports lower abdominal pain, diarrhea. Derm: Skin is healthy with good turgor, is fragile. Musculoskeletal: Range of motion: intact in all extremities. 16:40 Reassessment: Patient appears in no apparent distress at this time. Patient and/or iw family updated on plan of care and expected duration. Pain level reassessed. Patient is alert, oriented x 3, equal unlabored respirations, skin warm/dry/pink. Patient states feeling better. Patient states symptoms have improved. 17:18 Reassessment: Patient appears in no apparent distress at this time. Patient and/or iw family updated on plan of care and expected duration. Pain level reassessed. 17:21 Reassessment: Patient states symptoms have improved. iw Vital Signs: 13:50 BP 110 / 73; Pulse 80; Resp 16; Temp 97.9; Pulse Ox 99% ; Weight 79.38 kg; Height 5 ft. sv 4 in. (162.56 cm); 16:38 BP 120 / 61; Pulse 72; Resp 16; Pulse Ox 99% on R/A; iw 13:50 Body Mass Index 30.04 (79.38 kg, 162.56 cm) sv ED Course: 13:46 Patient arrived in ED. as 13:47 Arm band placed on. sv 13:50 Triage completed. sv 14:41 Alexx Malik PA is PHCP. jm 14:41 Josef Alamo MD is Attending Physician. jm 15:36 Aisha Hunter, KRISTOPHER is Primary Nurse. iw 15:50 Initial lab(s) drawn, by me, sent to lab. Missed attempt(s): 24 gauge in left forearm. iw Bleeding controlled, band aid applied, catheter tip intact. 16:00 Inserted saline lock: 22 gauge in right wrist, using aseptic technique. IV inserted by iw Nikko SUMMERS. 16:09 Patient has correct armband on for positive identification. iw 17:11 CT Chest, Abdomen, Pelvis - W/Contrast In Process Unspecified. EDMS 17:31 Opal Kruger MD is Referral Physician. [facility] 17:52 No provider procedures requiring assistance completed. IV discontinued, intact, iw bleeding controlled, No redness/swelling at site. Pressure dressing applied. Administered Medications: 16:07 Drug: morphine 4 mg Route: IVP; Site: right wrist; iw 17:53 Follow up: Response: No adverse reaction; Pain is decreased iw 16:08 Drug: NS 0.9% 500 ml Route: IV; Rate: bolus; Site: right wrist; iw 16:50 Follow up: IV Status: Completed infusion iw 16:08 Drug: Zofran (Ondansetron) 4 mg Route: IVP; Site: right wrist; iw 17:15 Follow up: Response: No adverse reaction iw 17:51 Not Given (Physician Discretion): morphine 4 mg IVP once; RASS on ADMIN: Combtv4, Very iw Agttd3, Agttd2, Rstlss1, AlertClm0, Drwsy-1, Lt Sdtn-2, Mod Sdtn-3, Dp Sdtn-4, UnArsble-5 17:52 Drug: LevaQUIN 750 mg Route: PO; iw 17:53 Follow up: Response: No adverse reaction iw Outcome: 17:32 Discharge ordered by MD. [facility] 17:52 Discharged to home ambulatory. iw 17:52 Condition: good 17:52 Discharge instructions given to patient, Instructed on discharge instructions, follow up and referral plans. medication usage, Demonstrated understanding of instructions, follow-up care, medications, Prescriptions given X 2. 17:53 Patient left the ED. Signatures: Dispatcher [employer] EDMS Nandini Oliver, RN RN Alexx Malik PA PA jmm Martinez, Amelia as Williams, Irene, KRISTOPHER RN iw Corrections: (The following items were deleted from the chart) 13:53 13:48 Chief complaint: Patient states: diffuse abd pain, fatigue, and diarrhea since Saturday. Pt currently on chemotherapy for lung cancer. sv 13:53 13:50 Pulse 80bpm; Resp 16bpm; Pulse Ox 99%; Temp 97.9F; sv sv
[2020-01-15] MEDS ORDERED: levoFLOXacin 750 MG TAB ONE (17:55)
[2020-01-15 18:20] VITALS: TEMP 97.9; O2SAT 99
[2020-01-15 18:21] VITALS: BP 120/61
== END 2020-01-15 17:53 | disposition home or self-care (01) ==
LOC: ER 13:43
DX: K57.32 Diverticulitis of large intestine without perforation or abscess without bleeding (principal); C34.90 Malignant neoplasm of unspecified part of unspecified bronchus or lung; Z88.3 Allergy status to other anti-infective agents
CPT/HCPCS: 96361; 85025; 80048; 36415; 80076; 81003; 84484; 83690; 71260; 74177; 96375; 96374; 99284; Q9967; J7040; J2405

== ENCOUNTER 2020-01-27 23:27 | Emergency (ER) | payer MEDICAID ==
--- OUTSIDE RECORDS SUMMARY | 2020-01-27 23:28 | XMS REPORT | Clinical Summary ---
:1960 Author Organization [facility] Address [address] [place] [id number] Care Team Providers Name Role Phone Unavailable [...] Signs Not on file Plan of Treatment Health Maintenance Due Date Last Done Comments BREAST CANCER SCREENING 1960 COLON CANCER SCREENING COLONOSCOPY 1960 PNEUMOCOCCAL VACCINE 0-64 YRS (1 of 1 - PPSV23) 1964 CERVICAL CANCER SCREENING PAP ONLY (Age 21-65) 1979 LIPID PANEL 2003 INFLUENZA VACCINE (#1) 2019 Implants Implanted Type Area Md Urologist Device Shelf Model / Identifier Expiration Serial / Lot Date Flseal [facility] Full Strlprep 10ml [id number] - Sna Cement/F N/A: BA XTER:BIOSCI 07/25/2019 [id number] / Implanted: Qty: 1 on 03/06/2018 by Robert Wise i, MD at [facility] iller/Ad Head NA / hesive [id number] [employer] 5ml [id number] - [id number] Cement/F N/A: INT EGRA LIFESCI 07/30/[id number] / Implanted: Qty: 1 on 03/06/2018 by Robert Wise i, MD at [facility] iller/Ad Head / hesive [id number] Plt Str Lp-Neuro 2h 12mm Ti Ns [id number] - Sna Fracture N/A: SYNTH ES:SYNTHES 421.502 / Implanted: Qty: 2 on 03/06/2018 by Robert Wise i, MD at [facility] /[employer] NA / n NA Plt Str Lp-Neuro 4h 12mm Ti Ns 421.504 - Sna Fracture N/A: SYNTH ES:SYNTHES 421.504 / Implanted: Qty: 1 on 03/06/2018 by Robert Wise i, MD at [facility] /[employer] NA / n NA Scr Sd Mtrxneu 4mm Ti Ns [id number] - Sna Fracture N/A: SYNTH ES:SYNTHES [id number] / Implanted: Qty: 8 on 03/06/2018 by Robert Wise i, MD at [facility] /[employer] NA / n NA Graft Suturable Bp 4x5cm [id number] - [id number] Graft/Pa N/A: IN TEGRA LIFESCI 03/31/2022 [id number] / Implanted: Qty: 1 on 03/06/2018 by Robert Wise i, MD at [facility] Head [id number] / [id number] Results Not on fileafter 01/26/2019 Advance Directives For more information, please contact: [phone] Code Status Date Activated Date Inactivated Comments Full Code 02/27/2018 3:43 AM This code status was determined by: Patient
--- OUTSIDE RECORDS SUMMARY | 2020-01-27 23:30 | XMS REPORT | Continuity of Care Document ---
:1960 Author Organization [facility] Address [address] [place] [address] [address] [place] [address] Care Team Providers Name Role Phone Doctor Unassigned, Name Attending Clinician Unavailable Bobby Polk MD Attending Clinician CORONA MÁRQUEZ Attending Clinician Unavailable CORONA MÁRQUEZ Admitting Clinician Unavailable Problems Condition Condition Condition Status Onset Resolution Last Treating Co mments Source Name Details Category Date Date Treatment Clinician Date Cerebellar Cerebellar Disease Active 2017-[address] [facility] [place] Mass of Mass of Disease Active 2017-[address] [facility] right lung right lung 04-29 Gwen kes - 00:00: Medical 00 [place] Hydrocepha Hydrocepha Disease Active 2017-[address] mikie mikie 04-29 [facility] Bandemia Bandemia Disease Active 2017[facility]04 [facility] Allergies, Adverse Reactions, Alerts Allergy Allergy Status Severity Reaction(s) Onset Inactive Treating Comm ents Source Name Type Date Date Clinician Erythroreymundo Propensi Active 2017-[address] ycin ty to 04-29 [facility] - adverse 00:00: fever. Medical reaction 00 Center s Erythrom Adverse Active Info Not [facility] Reaction Available [facility] Family History Family Member Diagnosis Comments Start Date Stop Date Source Natural father Coronary artery disease [facility] Natural father Diabetes [facility] Natural father Hypertension [facility] Natural mother Breast cancer [facility] Social History Social Habit Start Date Stop Date Quantity Comments Source History of tobacco Current smoker [facility] use [facility] Sex Assigned [facility] Tobacco use and 2018-03-27 2018-03-27 Never used [facility] - exposure 00:00:00 00:00:00 [facility] Smoking Status Start Date Stop Date Source Former smoker 2018-03-27 00:00:00 2018-03-27 00:00:00 [facility] Medications Ordered Filled Start Stop Current Ordering Indication Dosage Frequency Signature Comments Components Source Medication Medication Date Date Medication? Clinician (SIG) Name Name Topiramate Topiramate Yes Crista 1 tablet [facility] Immunizations Ordered Filled Immunization Date Status Comments Sourc e Immunization Name Name TDAP > 7 TDAP > 7 2019-10-21 Completed [facility] - Years-Adacel Years-Adacel 00:00:00 [facility] Procedures This patient has no known procedures. Plan of Care Planned Activity Planned Date Details Comments Source Future Scheduled 2019-12-01 INFLUENZA VACCINE (#1) [facility]00 [code = INFLUENZA Medical Ce nter VACCINE (#1)] Future Scheduled 2003 Lipid panel [facility] - Test 00:00:00 (procedure) [code = [facility] 51354692] Future Scheduled [address] [facility] [facility] - Test 00:00:00 [facility] cervix (procedure) [code = 912178824] Future Scheduled [address] [facility] - Test 00:00:00 0-64 YRS (1 of 1 - Medical C enter PPSV23) [code = PNEUMOCOCCAL VACCINE 0-64 YRS (1 of 1 - PPSV23)] Future Scheduled [address] [facility] - Test 00:00:00 [facility] breast (procedure) [code = 200994156] Future Scheduled [address] [facility] - Test 00:00:00 [facility] colon (procedure) [code = 880011147] Encounters Start End Encounter Admission Attending Care Care Encounter Source Date/Time Date/Time Type Type Clinicians Facility Department ID 2020-01-14 2020-01-14 Outpatient [facility] [id number] [facility] 2020-01-12 2020-01-12 Outpatient [facility] [id number] [facility] 2019-12-18 2019-12-18 [facility] [id number] 18:18:00 18:18:00 [facility] Family Medicine l Medicine Outpati ent Clinics 2019-12-11 2019-12-[address] [id number] 08:20[facility]00 08:20:00 [facility] l Group Outpati ent Clinics 2019-12-03 2019-12-[address] [id number] 10[facility]27:00 10:27:00 [facility] l Group Outpati ent Clinics 2019-11-30 2019-11-30 [facility] [id number] 09:40:00 09:40:00 [facility] Family Medicine l Medicine Outpati ent Clinics 2019-11-25 2019-11-25 Orders Doctor ZIMMERMAN [id number] 00:00:00 00:00:00 Only Unassigned, NUBIA [id number] [place] [facility] [id number] 2019-10-21 2019-10-21 [place] [place] [id number] 14:40:00 14:40:00 [facility] Medicine Medicine Outpati ent Clinics 2019-08-25 2019-08-25 [facility] [id number] 10:40:00 10:40:00 [facility] Medicine Outpati ent Clinics 2019-06-16 2019-06-16 [facility] [id number] 18:08:00 18:08:00 [facility] Medicine Outpati ent Clinics 2019-06-05 2019-06-05 Office Felicitas [facility] [id number] 08:01:07 09:06:54 Visit Cb Mcclure [id number] Jared [id number] Kimani [id number] [facility] 2019-05-26 2019-05-26 [facility] [id number] 13:00:00 13:00:00 [facility] Medicine Outpati ent Clinics 2019-05-11 2019-05-11 [facility] [id number] 16:17:00 16:17:00 [facility] Medicine Outpati ent Clinics 2019-04-30 2019-04-30 [facility] [id number] 11:00:00 11:00:00 [facility] Medicine Outpati ent Clinics 2019-01-27 2019-01-27 [facility] [id number] 08:00:00 08:00:00 [facility] Medicine Outpati ent Clinics 2019-01-19 2019-01-19 [facility] [id number] 14:31:00 14:31:00 [facility] Medicine Outpati ent Clinics 2019-01-13 2019-01-13 [facility] [id number] 16:00:00 16:00:00 [facility] Medicine Outpati ent Clinics 2019-01-09 2019-01-09 Outpatient Esperanza Chapa [id number] 16:16:00 16:16:00 [facility] 2018-12-11 2018-12-11 Outpatient Esperanza Chapa [id number] 11:00:00 11:00:00 [facility] Results Test Description Test Time Test Comments Results Result Sourc e Comments TISSUE EXAM 2018-05-24 Surgical Pathology Report 13:16:00 Case: [id number] Authorizing Provider: Robert Hightower MD Collected: 03/06/2018 1828 Ordering Location: [facility] Received: 03/07/2018 0900 SERVICES Pathologist: Blu Bowers MD Specimen: Tumor The following results were reported by [employer]. Please see attached reports.PD-L1 22C3 FDA analysis confirms HIGH EXPRESSIONBRAF gene rearrangement is NOT DETECTEDROS1 gene rearrangement is NOT DETECTEDALK gene rearrangement is NOT DETECTEDEGFR mutations in exons 18, 19, 20 T790M and other mutations, 21Addendum electronically signed by Blu Bowers MD on 05/24/2018 at 1:16 PMBRAIN, CEREBELLUM, CRANIOTOMY:METASTATIC ADENOCARCINOMA WITH FOCAL SQUAMOUS DIFFERENTIATION (SEE COMMENT) Signing Pathologist Direct Phone Line: [phone] y signed by Blu Bowers MD on [...] tumor cells. Tumor is negative for p63. 59563; 04330; 39459 x 6Cancer of cerebellumTumor of craniumThe specimen [...] stains. Immunohistochemistry technical testing was performed at [facility], Pathology Laboratory where it was developed and [...] developed and its performance characteristics determined by [facility], Pathology Laboratory. It has not been [...] (test 174 mg/dL 70-[address] [facility] [address] [place], [place] [address]NER code = 1538) [facility] 7703 0 POCT-GLUCOSE [id number] 12:07:00 Test Item Value Reference Range Interpretation Comments POC-GLUCOSE METER 114 mg/dL 70-[address] [facility] 67[address] [facility] (test code = SHELLY Bill [facility] 1538) 00865 POCT-GLUCOSE [id number] 07:14:00 Test Item Value Reference Range Interpretation Comments POC-GLUCOSE METER 104 mg/dL 70-[address] [facility] 67[address] [facility] (test code = RAFAELGA Landy [facility] 1538) [address] BASIC METABOLIC [id number] 05:46:00 Test Item Value Reference Range Interpretation [...] ESTIMATED GFR. CBC W/PLT COUNT & AUTO [id number] 05:20:00 Test Item Value Reference Range Interpretation [...] PERCENT (BEAKER) (test code = 2801) POCT-GLUCOSE [id number] 21:30:00 Test Item Value Reference Range Interpretation Comments POC-GLUCOSE METER 111 mg/dL 70-110 H TESTED AT [place] [address] ([facility]) (test code = [facility] 1538) [address]31 POCT-GLUCOSE [id number] 18:19:00 Test Item Value Reference Range Interpretation Comments POC-GLUCOSE METER 175 mg/dL 70-110 H TESTED AT [place] [address] ([facility]) (test code = [facility] 1538) 00351 POCT-GLUCOSE [id number] 08:28:00 Test Item Value Reference Range Interpretation Comments POC-GLUCOSE METER 143 mg/dL 70-110 H TESTED AT [place] [address] ([facility]) (test code = [facility] 1538) 04651 BASIC METABOLIC [id number] 06:32:00 Test Item Value Reference Range Interpretation [...] ESTIMATED GFR. CBC W/PLT COUNT & AUTO [id number] 06:29:00 Test Item Value Reference Range Interpretation [...] LYMPHOCYTES ABSOLUTE COUNT 2.31 K/ L 1.18-3.74 ([facility]) (test code = 414) MONOCYTES ABSOLUTE COUNT (AKER) 1.46 K/ L 0.24-0.36 H (test code = 415) EOSINOPHILS ABSOLUTE COUNT 0.37 K/ L 0.04-0.36 H ([facility]) (test code = 416) BASOPHILS ABSOLUTE COUNT (AKER) 0.03 K/ L 0.01-0.08 (test code = 417) IMMATURE GRANULOCYTES-RELATIVE 1 % 0-1 PERCENT ([facility]) (test code = 2801) POCT-GLUCOSE [id number] 21:28:00 Test Item Value Reference Range Interpretation Comments POC-GLUCOSE METER 170 mg/dL 70-110 H TESTED AT [place] [address] ([facility]) (test code = SHELLY Bill [facility] 1538) 33123 POCT-GLUCOSE [id number] 18:02:00 Test Item Value Reference Range Interpretation Comments POC-GLUCOSE METER 180 mg/dL 70-110 H TESTED AT [place] [address] ([facility]) (test code = SHELLY Bill [facility] 1538) 85908 POCT-GLUCOSE [id number] 13:34:00 Test Item Value Reference Range Interpretation Comments POC-GLUCOSE METER 235 mg/dL 70-110 H TESTED AT [place] [address] ([facility]) (test code = [facility] Landy [facility] 1538) [address] MR, BRAIN, [id number] 12:29:00FINAL REPORT MRI Brain with and without [...] MDReport Verified Date/Time: 03/08/2018 12:29:16 Reading Location: [address] Neuro Reading Room W/PLT COUNT & AUTO [id number] 07:59:00 Test Item Value Reference Range Interpretation [...] Received comment: User comments: Slide comments:BASIC METABOLIC [id number] 04:18:00 Test Item Value Reference Range Interpretation [...] 358) GLUCOSE RANDOM 121 mg/dL 70-105 H ([facility]) (test code = 652) CALCIUM ([facility]) 9.2 mg/dL 8.4-10.2 (test code = 697) EGFR ([facility]) (test mL/min/1.73 INSUFFIC IENT CLINICAL code = 1092) sq m DATA TO CALCULA TE ESTIMATED GFR. POCT-GLUCOSE [id number] 23:21:00 Test Item Value Reference Range Interpretation Comments POC-GLUCOSE METER 122 mg/dL 70-110 H TESTED AT [place] [address] ([facility]) (test code = SHELLY Bill [facility] 1538) 70575 POCT-GLUCOSE [id number] 22:02:00 Test Item Value Reference Range Interpretation Comments POC-GLUCOSE METER 122 mg/dL 70-110 H TESTED AT [place] [address] ([facility]) (test code = SHELLY Bill [facility] 1538) 92441 POCT-GLUCOSE [id number] 18:27:00 Test Item Value Reference Range Interpretation Comments POC-GLUCOSE METER 120 mg/dL 70-110 H TESTED AT [place] [address] ([facility]) (test code = SHELLY Bill [place] 1538) [address] POCT-GLUCOSE [id number] 12:26:00 Test Item Value Reference Range Interpretation Comments POC-GLUCOSE METER 130 mg/dL 70-110 H TESTED AT [place] [address] ([facility]) (test code = SHELLY Bill [place] 1538) [address] POCT-GLUCOSE [id number] 08:44:00 Test Item Value Reference Range Interpretation Comments POC-GLUCOSE METER 141 mg/dL 70-110 H TESTED AT [place] [address] ([facility]) (test code = SHELLY Bill [place] 1538) [address] CBC W/PLT COUNT & AUTO [id number] 07:37:00 Test Item Value Reference Range Interpretation Comments WHITE BLOOD CELL COUNT ([facility]) 27.9 K/ L 3.5-10.5 H (test code = 775) RED BLOOD CELL COUNT ([facility]) 4.44 M/ L 3.93-5.22 (test code = 761) HEMOGLOBIN ([facility]) (test code = 11.3 GM/DL 11.2-15.7 410) [...] Received comment: User comments: Slide comments:BASIC METABOLIC [id number] 04:29:00 Test Item Value Reference Range Interpretation [...] m DATA TO CALCULA TE ESTIMATED GFR. [id number] 04:28:00 Test Item Value Reference Range Interpretation Comments PHOSPHORUS (BEAKER) (test code = 3.4 mg/dL 2.3-4.7 604) [id number] 04:28:00 Test Item Value Reference Range Interpretation Comments MAGNESIUM (BEAKER) (test code = 1.9 mg/dL 1.6-2.6 627) POCT-GLUCOSE [id number] 22:29:00 Test Item Value Reference Range Interpretation Comments POC-GLUCOSE METER 147 mg/dL 70-[address] [facility] 6720 (BEAKER) (test code = [place] 1538) [address] POCT-GLUCOSE [id number] 12:29:00 Test Item Value Reference Range Interpretation Comments POC-GLUCOSE METER 87 mg/dL 70-110 TESTED AT [facility] 6720 (BEAKER) (test code = SHELLY Bill [facility] [address] 1538) POCT-GLUCOSE [id number] 08:21:00 Test Item Value Reference Range Interpretation Comments POC-GLUCOSE METER 122 mg/dL 70-110 H TESTED AT [place] [address] ([facility]) (test code = SHELLY Bill [facility] 1538) [address] [id number] 05:32:00 Test Item Value Reference Range Interpretation Comments PROTIME ([facility]) (test code = 13.1 seconds 11.7-14.7 759) INR ([facility]) (test code = 370) 1.0 <=5.9 PARTIAL THROMBOPLASTIN TIME 24.2 seconds 22.5-36.0 ([facility]) (test code = 760) RECOMMENDED COUMADIN/WARFARIN INR THERAPY RANGESSTANDARD DOSE: 2.0 - 3.0 Includes: PROPHYLAXIS forvenous thrombosis, systemic embolization; TREATMENT for venous thrombosis and/or pulmonary embolus.HIGH RISK: Target INR is 2.5-3.5 for patients with mechanical heart valves.POCT-GLUCOSE [id number] 05:17:00 Test Item Value Reference Range Interpretation Comments POC-GLUCOSE METER 127 mg/dL 70-110 H TESTED AT [place] [address] ([facility]) (test code = [facility] Landy [facility] 1538) [address] BASIC METABOLIC [id number] 05:16:00 Test Item Value Reference Range Interpretation [...] ESTIMATED GFR. CBC W/PLT COUNT & AUTO [id number] 04:56:00 Test Item Value Reference Range Interpretation [...] EOSINOPHILS ABSOLUTE COUNT 0.12 K/ L 0.04-0.36 ([facility]) (test code = 416) BASOPHILS ABSOLUTE COUNT ([facility]) 0.05 K/ L 0.01-0.08 (test code = 417) IMMATURE GRANULOCYTES-RELATIVE 2 % 0-1 H PERCENT ([facility]) (test code = 2801) POCT-GLUCOSE [id number] 22:07:00 Test Item Value Reference Range Interpretation Comments POC-GLUCOSE METER 157 mg/dL 70-[address] [facility] 67[address] ([facility]) (test code = SHELLY Bill [facility] 1538) 6[address] POCT-GLUCOSE [id number] 16:55:00 Test Item Value Reference Range Interpretation Comments POC-GLUCOSE METER 146 mg/dL 70-[address] [facility] 67 ([facility]) (test code = SHELLY Bill [facility] 1538) 23135 TISSUE [id number] 15:23:00Surgical Pathology Report Case: [id number] Authorizing Provider: Robert Tirado MD Collected: 03/04/2018916 Ordering Location: [facility] Received: 03/04/2018 09 SERVICES Pathologist: Terry Stanford MD Specimens: A) - Lung, Right Upper Lobe, Right upper lobe endobronchial biopsy B) -Lung, Right Upper Lobe, EBBX. Reflex genetic markers. PART A RIGHT UPPER LOBE LUNG, ENDOBRONCHIAL BIOPSY:ADENOCARCINOMA.SEE DIAGNOSTIC COMMENT.PART B RIGHT UPPER LOBE LUNG, ENDOBRONCHIAL BIOPSY:ADENOCARCINOMA.SEE DIAGNOSTIC COMMENT. Signing Pathologist Direct Phone Line:[phone] signed by Terry Stanford MD on 03/05/2018 at 3:23 PMImmunohistochemical studies performed on block B1 demonstrate the tumor cells to be positive for TTF1 and Napsin A. They are negative for ER and PAX8. The immunoprofile is most compatible with an adenocarcinoma of pulmonary origin.08390c8, 71371, 46759q9, 27677S. Right upper lobe endobronchial biopsy. B. Right [...] stains. BLOCK B1- TTF1, NAPSIN A, ER, FLA0Iysbcorkywwvbxfkcajt technical testing was performed at [facility], Pathology Laboratory where it was developed and [...] complexity clinical laboratory testing.FINE NEEDLE ASPIRATE BY [id number] 12:41:00Medical Cytology Report Case: [id number] Authorizing Provider: Robert Tirado MD Collected: 03/04/2018 1023 Ordering Location: [address] Received: 03/04/2018 1244 Service Pathologist: Ben Vila MD Specimen: Lymph Node, Interlobar, Right, Station 11R LYMPH NODE, INTERLOBAR RIGHT, STATION 11R EBUS FNA BY CLINICIAN (CYTOSPINS OF ASPIRATE): - NEGATIVE FOR MALIGNANCY - LYMPHOCYTES PRESENT Signing Pathologist Direct Phone Line: [phone] signed by Ben Garcia MD on 03/05/2018 at 12:41 PMPlease also see surgical pathology report [id number] and cytopathology reports [id number], 3646, 3647 and 3648. [id number] massLYMPH NODE, INTERLOBAR RIGHT, STATION 11R EBUS FNA40 mls in cytorich red; 2 cytospinsCollected: [id number]: [id number] interpretation of this case included the use of immunohistochemistry or special stains. Immunohistochemistry technical testing was performed at [facility], Pathology Laboratory where it was developed and [...] certified under the Clinical Laboratory Improvement Amendments to9372 (CLIA-88) as qualified to perform high complexity clinical laboratory testing.[facility], Department of Pathology, [address] [place] [address], [facility], [facility] of [facility], [address] [place] [address], [facility], [facility] of [facility]ology, [address] [place] [address], DWLY NEEDLE ASPIRATE BY [id number] 12:40:00Medical Cytology Report Case: [id number] Authorizing Provider: Robert Tirado MD Collected: 03/04/2018 1008 Ordering Location: [address] Received: 03/04/2018 1244 Service Pathologist: Ben Vila MD Specimen: Lymph Node, Lower Paratracheal, Right, Station 4R LYMPH NODE, LOWER PARATRACHEAL, RIGHT, STATION 4R EBUS FNA BY CLINICIAN (CYTOSPINS AND CELL BLOCK OF ASPIRATE): - NEGATIVE FOR MALIGNANCY Signing Pathologist Direct Phone Line: [phone] signed by Ben Vila MD on 03/05/2018 at 12:40 PMSmears and cell block show good sampling of anthracotic lymph node without granuloma or neoplasm.Please also see surgical pathology report [id number] and cytopathology reports [id number], 3646, 3647 and 3649. 18776, 70152Ymkp massLYMPH NODE, LOWER PARATRACHEAL, RIGHT, STATION 4R EBUS FNA40 mls in cytorich red; 2 cytospins, cell blockCollected: [id number]: [id number] interpretation of this case included the use of immunohistochemistry or special stains. Immunohistochemistry technical testing was performed at [facility], Pathology Laboratory where it was developed and [...] qualified to perform high complexity clinical laboratory testing.[facility], Department of Pathology, [address] [place] [address], IngtplK[facility], Department of Pathology, [address] [place] [address], [facility]xqqxyK[facility], Department of Pathology, [address] [place] [address], AJXY NEEDLE ASPIRATE BY [id number] 12:38:00Medical Cytology Report Case: [id number] Authorizing Provider: Robert Tirado MD Collected: 03/04/2018 1002 Ordering Location: [address] Received: 03/04/2018 1244 Service Pathologist: Ben Vila MD Specimen: Lymph Node, Subcarinal, Station 7 LYMPH NODE, SUBCARINAL, STATION 7 EBUS FNA BY CLINICIAN (CYTOSPINS AND CELL BLOCK OF ASPIRATE): - NEGATIVE FOR MALIGNANCY Signing Pathologist Direct Phone Line: [phone] signed by Ben Vila MD on 03/05/2018 at 12:38 PMSmears and cell block show good sampling of anthracotic lymph nodewithout granuloma or neoplasm.Please also see surgical pathology report [id number] and cytopathology reports [id number], 3646, 3648 and 3649. 55278, 82559Vcxy massLYMPH NODE, SUBCARINAL, STATION 7 FNAPrepared cell block(A2) and 2 cytospins from 40 ml cytorich red fixative specimen Collected: [id number]: [id number] interpretation of this case included the use of immunohistochemistry or special stains.Immunohistochemistry technical testing was performed at [facility], Pathology L aboratory where it was developed [...] qualified to perform high complexity clinical laboratory testing.[facility], Department of Pathology, [address] [place] [address], [facility]at[facility], Department of Pathology, [address] [place] [address], AouqmoK[facility], Department of Pathology, [address] [place] [address], WSSN NEEDLE ASPIRATE BY [id number] 12:35:00Medical Cytology Report Case: [id number] Authorizing Provider: Robert Tirado MD Collected: 03/04/2018 1001 Ordering Location: [address] Received: 03/04/2018 1244 Service Pathologist: Ben Vila MD Specimen: Lymph Node, Lower Paratracheal, Left, Station 4L LYMPH NODE, LOWER PARATRACHEAL, LEFT, STATION 4L, FNA BY CLINICIAN (CYTOSPINS OF ASPIRATE): - NEGATIVE FOR MALIGNANCY PREDOMINANTLY BRONCHIAL EPITHELIAL CELLS Signing Pathologist Direct Phone Line: [phone] signed by Ben Vila MD on 03/05/2018 at 12:35 PMPlease also see surgical pathology report [id number] and cytopathology reports [id number], 3647, 3648 and 3649. 00016Pedm massLYMPH NODE, LOWER PARATRACHEAL, LEFT, STATION 4L FNAPrepared 2 cytospins from 40 ml cytorich red fixative sampleCollected: [id number]: [id number] interpretation of this case included the use of immunohistochemistry or special stains. Immunohistochemistry technical testing was performed at [facility], Pathology Laboratory where it was developed and [...] qualified to perform high complexity clinical laboratory testing.[facility], Department of Pathology, [address] [place] [address], WtkjqwWest [facility], Department of Patho logy, [address] [place] [address], AfzesrWest [facility], Department of Pathology, [address] [place] [address], CPAQ-GLUCOSE [id number] 12:34:00 Test Item Value Reference Range Interpretation Comments POC-GLUCOSE METER 119 mg/dL 70-110 H TESTED AT [place] [address] (NEENA) (test code = SHELLY Bill [facility] 1538) [address] FINE NEEDLE ASPIRATE BY [id number] 12:34:00Medical Cytology Report Case: [id number] Authorizing Provider: Robert Tirado MD Collected: 03/04/2018 1001 Ordering Location: [address] Received: 03/04/2018 1244 Service Pathologist: Ben Vila MD Specimen: Lymph Node, Interlobar, Left, Station 11L LYMPH NODE, INTERLOBAR, LEFT, STATION 11L, FNA BY CLINICIAN (CYTOSPINS AND CELL BLOCK OF ASPIRATE): - NEGATIVE FOR MALIGNANCY Signing Pathologist Direct Phone Line: [phone] signed by Ben Vila MD on 03/05/2018 at 12:34 PMSmears and cell block show good sampling of anthracotic lymph node without granuloma or neoplasm.Please also see surgical pathology report [id number] and cytopathology reports [id number], 3647, 3648 and 3649. 27844, 97447Gpvi massLYMPH NODE, INTERLOBAR, LEFT, [id number] FNAPrepared cell block(A2) and 2 cytospins from 45 ml cytorich red fixative sampleCollected: [id number]: [id number] interpretation of this case included the use of immunohistochemistry or special stains. Immunohistochemistry technical testing was performed at [facility], Pathology Laboratory where it was developed and [...] qualified to perform high complexity clinical laboratory testing.[facility], Department of Pathology, [address] [place] [address], [facility], Department of [facility]ology, [address] [place] [address], [facility], Department of Pathology, [address] [place] [address], RAYU-GLUCOSE [id number] 08:25:00 Test Item Value Reference Range Interpretation Comments POC-GLUCOSE METER 114 mg/dL 70-[address] [facility] ([facility]) (test code = SHELLY Bill [facility] 1538) [address] BASIC METABOLIC [id number] 05:45:00 Test Item Value Reference Range Interpretation [...] ESTIMATED GFR. CBC W/PLT COUNT & AUTO [id number] 05:42:00 Test Item Value Reference Range Interpretation [...] PERCENT (BEAKER) (test code = 2801) BLOOD [id number] 23:01:00 Test Item Value Reference Range Interpretation Comments CULTURE (BEAKER) (test No growth in 5 days code = 1095) POCT-GLUCOSE [id number] 20:32:00 Test Item Value Reference Range Interpretation Comments POC-GLUCOSE METER 122 mg/dL 70-[address] [facility] ([facility]) (test code = [place] 1538) [address] POCT-GLUCOSE [id number] 17:53:00 Test Item Value Reference Range Interpretation Comments POC-GLUCOSE METER 199 mg/dL 70-[address] [facility] ([facility]) (test code = SHELLY Bill [facility] 1538) [address] EBUS FNA [id number] 14:00:00 Test Item Value Reference Range Interpretation Comments CYTOLOGY RESULT POINTER See Separate Report (BEAKER) (test code = 2629) EBUS FNA [id number] 14:00:00 Test Item Value Reference Range Interpretation Comments CYTOLOGY RESULT POINTER See Separate Report (BEAKER) (test code = 2629) EBUS FNA [id number] 14:00:00 Test Item Value Reference Range Interpretation Comments CYTOLOGY RESULT POINTER See Separate Report (BEAKER) (test code = 2629) EBUS FNA [id number] 14:00:00 Test Item Value Reference Range Interpretation Comments CYTOLOGY RESULT POINTER See Separate Report (BEAKER) (test code = 2629) EBUS FNA [id number] 14:00:00 Test Item Value Reference Range Interpretation Comments CYTOLOGY RESULT POINTER See Separate Report (BEAKER) (test code = 2629) POCT-GLUCOSE [id number] 12:06:00 Test Item Value Reference Range Interpretation Comments POC-GLUCOSE METER 114 mg/dL 70-[address] [facility] ([facility]) (test code = SHELLY Bill [place] 1538) [address] BLOOD [id number] 10:00:00 Test Item Value Reference Range Interpretation Comments CULTURE (BEAKER) (test No growth in 5 days code = 1095) POCT-GLUCOSE [id number] 08:22:00 Test Item Value Reference Range Interpretation Comments POC-GLUCOSE METER 120 mg/dL 70-[address] [facility] (BEAKER) (test code = SHELLY [place] 1538) [address] [id number] 06:39:00 Test Item Value Reference Range Interpretation Comments PARTIAL THROMBOPLASTIN TIME 25.2 seconds 22.5-36.0 (BEAKER) (test code = 760) PROTHROMBIN [id number] 06:38:00 Test Item Value Reference Range Interpretation Comments PROTIME (BEAKER) (test code = 13.6 seconds 11.7-14.7 759) INR (BEAKER) (test code = 370) 1.0 <=5.9 RECOMMENDED COUMADIN/WARFARIN INR THERAPY RANGESSTANDARD DOSE: 2.0 - 3.0 Includes: PROPHYLAXIS forvenous thrombosis, systemic embolization; TREATMENT for venous thrombosis and/or pulmonary embolus.HIGH RISK: Target INR is 2.5-3.5 for patients with mechanical heart valves.BASIC METABOLIC [id number] 06:38:00 Test Item Value Reference Range Interpretation [...] ESTIMATED GFR. CBC W/PLT COUNT & AUTO [id number] 06:19:00 Test Item Value Reference Range Interpretation [...] PERCENT (BEAKER) (test code = 2801) POCT-GLUCOSE [id number] 22:29:00 Test Item Value Reference Range Interpretation Comments POC-GLUCOSE METER 175 mg/dL 70-110 H TESTED AT [place] [address] ([facility]) (test code = SHELLY Bill [facility] 1538) [address] BONE AND/OR JOINT IMAGING, WHOLE [id number] 15:34:00No histologic dx yet, but brain met with lung mass.FINAL REPORT PROCEDURE: BONE SCAN, WHOLE BODY CPT CODE: 73462 INDICATION: Right lung cancer with cerebellar metastasis [...] MDReport Verified Date/Time: 03/03/2018 15:34:30 Reading Location: [address] Reading Room POCT-GLUCOSE [id number] 11:44:00 Test Item Value Reference Range Interpretation Comments POC-GLUCOSE METER 180 mg/dL 70-110 H TESTED AT [place] [address] ([facility]) (test code = SHELLY Bill [facility] 1538) [address] POCT-GLUCOSE [id number] 08:31:00 Test Item Value Reference Range Interpretation Comments POC-GLUCOSE METER 111 mg/dL 70-110 H TESTED AT [place] [address] ([facility]) (test code = SHELLY Bill [facility] 1538) [address]375 CBC W/PLT COUNT & AUTO [id number] 05:37:00 Test Item Value Reference Range Interpretation Comments WHITE BLOOD CELL COUNT ([facility]) 18.9 K/ L 3.5-10.5 H (test code = 775) RED BLOOD CELL COUNT ([facility]) 4.58 M/ L 3.93-5.22 (test code = 761) HEMOGLOBIN ([facility]) (test code = 11.6 GM/DL 11.2-15.7 410) HEMATOCRIT ([facility]) (test code = 36.7 % 34.1-44.9 411) [...] PERCENT (BEAKER) (test code = 2801) POCT-GLUCOSE [id number] 21:27:00 Test Item Value Reference Range Interpretation Comments POC-GLUCOSE METER 202 mg/dL 70-[address] [facility] (BEAKER) (test code = SHELLY [place] 1538) [address] POCT-GLUCOSE [id number] 13:34:00 Test Item Value Reference Range Interpretation Comments POC-GLUCOSE METER 94 mg/dL 70-[address] [facility] (BEAKER) (test code = [place] [address] 1538) POCT-GLUCOSE [id number] 08:43:00 Test Item Value Reference Range Interpretation Comments POC-GLUCOSE METER 118 mg/dL 70-[address] [facility] (BEAKER) (test code = SHELLY Bill [place] 1538) [address] URINALYSIS W/ REFLEX URINE [id number] 07:40:00 Test Item Value Reference Range Interpretation [...] code = 516) SOURCE(BEAKER) (test code = 4112) BASIC METABOLIC [id number] 07:17:00 Test Item Value Reference Range Interpretation [...] ESTIMATED GFR. CBC W/PLT COUNT & AUTO [id number] 06:15:00 Test Item Value Reference Range Interpretation [...] PERCENT (BEAKER) (test code = 2801) POCT-GLUCOSE [id number] 21:08:00 Test Item Value Reference Range Interpretation Comments POC-GLUCOSE METER 175 mg/dL 70-110 H [facility] AT [place] [address] [facility] (test code = SHELLY [place] 1538) [address] POCT-GLUCOSE [id number] 17:48:00 Test Item Value Reference Range Interpretation Comments POC-GLUCOSE METER 114 mg/dL 70-110 H TESTED AT [place] [address] [facility] (test code = SHELLY Bill [facility] 1538) [address]404 POCT-GLUCOSE [id number] 12:27:00 Test Item Value Reference Range Interpretation Comments POC-GLUCOSE METER 119 mg/dL 70-110 H TESTED AT [place] [address] [facility] (test code = SHELLY Bill [facility] 1538) [address] BASIC METABOLIC [id number] 08:12:00 Test Item Value Reference Range Interpretation [...] ESTIMATED GFR. CBC W/PLT COUNT & AUTO [id number] 07:21:00 Test Item Value Reference Range Interpretation [...] LYMPHOCYTES ABSOLUTE COUNT 1.79 K/ L 1.18-3.74 ([facility]) (test code = 414) MONOCYTES ABSOLUTE COUNT ([facility]) 0.81 K/ L 0.24-0.36 H (test code = 415) EOSINOPHILS ABSOLUTE COUNT 0.03 K/ L 0.04-0.36 L ([facility]) (test code = 416) BASOPHILS ABSOLUTE COUNT ([facility]) 0.04 K/ L 0.01-0.08 (test code = 417) IMMATURE GRANULOCYTES-RELATIVE 1 % 0-1 PERCENT ([facility]) (test code = 2801) POCT-GLUCOSE [id number] 06:08:00 Test Item Value Reference Range Interpretation Comments POC-GLUCOSE METER 113 mg/dL 70-[address] [facility] ([facility]) (test code = SHELLY Bill [facility] 1538) [address]191 POCT-GLUCOSE [id number] 18:58:00 Test Item Value Reference Range Interpretation Comments POC-GLUCOSE METER 117 mg/dL 70-110 H TESTED AT [place] [address] ([facility]) (test code = [facility] Landy [facility] 1538) [address] CT, CHEST, WITH [id number] 15:20:00FINAL REPORT CT of the Chest, abdomen [...] MDReport Verified Date/Time: 02/28/2018 15:20:36 Reading Location: [facility] C013Y CT Body Reading Room CT, [id number] 15:20:00FINAL REPORT CT of the Chest, abdomen [...] MDReport Verified Date/Time: 02/28/2018 15:20:36 Reading Location: [address] Body Reading Room POCT-GLUCOSE [id number] 08:55:00 Test Item Value Reference Range Interpretation Comments POC-GLUCOSE METER 125 mg/dL 70-110 H TESTED AT [place] [address] ([facility]) (test code = SHELLY [place] 1538) [address] MR, BRAIN, [id number] 07:59:00STEALTH protocolFINAL REPORT MRI Brain with and [...] MDReport Verified Date/Time: 02/28/2018 07:59:07 Reading Location: [address] Neuro Reading Room POCT- GLUCOSE [id number] 06:39:00 Test Item Value Reference Range Interpretation Comments POC-GLUCOSE METER 150 mg/dL 70-[address] [facility] (BEAKER) (test code = SHELLY [place] 1538) [address] BASIC METABOLIC [id number] 05:51:00 Test Item Value Reference Range Interpretation [...] ESTIMATED GFR. CBC W/PLT COUNT & AUTO [id number] 04:09:00 Test Item Value Reference Range Interpretation [...] PERCENT (BEAKER) (test code = 2801) POCT-GLUCOSE [id number] 00:17:00 Test Item Value Reference Range Interpretation Comments POC-GLUCOSE METER 122 mg/dL 70-[address] [facility] (BEAKER) (test code = [facility] Landy [facility] 1538) [address]251 POCT-GLUCOSE [id number] 18:35:00 Test Item Value Reference Range Interpretation Comments POC-GLUCOSE METER 134 mg/dL 70-[address] [facility] (BEAKER) ([facility] = [facility] 1538) 51097 POCT-GLUCOSE [id number] 12:10:00 Test Item Value Reference Range Interpretation Comments POC-GLUCOSE METER 146 mg/dL 70-110 H [facility] AT [place] [address] [facility] (test code = [facility] 1538) [address]54 [id number] 07:56:00 Test Item Value Reference Range Interpretation Comments PROCALCITONIN (BEAKER) (test code = < ng/mL <0.05 3036) SEPSIS RISK (ng/mL)Low: 0.05-0.50Intermediate: 0.51-2.00High: >=2.01LACTATE DEHYDROGENASE (LDH)2018-02-27 06:52:00 Test Item Value Reference Range Interpretation Comments LACTATE DEHYDROGENASE (BEAKER) (test 146 U/L 125-220 code = 635) C-REACTIVE [id number] 06:52:00 Test Item Value Reference Range Interpretation Comments C-REACTIVE PROTEIN (BEAKER) (test 8.22 mg/dL 0.00-0.50 H code = 676) LACTIC ACID, ARTERIAL, WHOLE [id number] 06:01:00 Test Item Value Reference Range Interpretation Comments LACTATE BLOOD ARTERIAL (2) 1.0 mmol/L 0.5-2.2 (BEAKER) (test code = 2874) BASIC METABOLIC [id number] 05:52:00 Test Item Value Reference Range Interpretation [...] DATA TO CALCULA TE ESTIMATED GFR. TROPONIN [id number] 05:48:00 Test Item Value Reference Range Interpretation Comments TROPONIN I (BEAKER) (test code = 397) < ng/mL 0.00-0.03 [id number] 05:43:00 Test Item Value Reference Range Interpretation Comments MAGNESIUM (BEAKER) 2.1 mg/dL 1.6-2.6 Specimen slightly (test code = 627) hemolyzed [id number] 05:43:00 Test Item Value Reference Range Interpretation Comments PHOSPHORUS (BEAKER) 4.1 mg/dL 2.3-4.7 Specimen slightly (test code = 604) hemolyzed CBC W/PLT COUNT & AUTO [id number] 05:34:00 Test Item Value Reference Range Interpretation [...] PERCENT (BEAKER) (test code = 2801) POCT-GLUCOSE [id number] 05:32:00 Test Item Value Reference Range Interpretation Comments POC-GLUCOSE METER 118 mg/dL 70-[address] [facility] (BEAKER) (test code = SHELLY Bill [facility] 1538) [address] [id number] 05:20:00 Test Item Value Reference Range Interpretation [...] 2.5-3.5 for patients with mechanical heart valves.PROTHROMBIN TIME/[id number] 05:19:00 Test Item Value Reference Range Interpretation [...]
--- OUTSIDE RECORDS SUMMARY | 2020-01-27 23:31 | XMS REPORT ---
:1960 Author Organization [facility] Address [address] [place] [address] Care Team Providers Name Role Phone Mariia Unavailable [phone] PROBLEMS Type Condition ICD9-CM [id number] Onset Condition SNOMED Code Notes Code Code Dates Status Problem History of brain Z85.841 Active 573790958 cancer in adulthood Problem Bilateral change H91.93 Active 511817109 in hearing Problem Vision changes H53.9 Active 597594733 Problem Malignant C34.11 Active 743693882 neoplasm of upper lobe of right lung Problem Shortness of R06.02 Active 915622041 breath Problem Cough R05 Active 50360762 Problem Migraine with G43.101 Active 4273288 aura and with status migrainosus, not intractable Problem Vaginal atrophy N95.2 Active 909561631 Problem Wheezing R06.2 Active 37811873 Problem Environmental Z91.09 Active 494906872 allergies Problem 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 23117763 insufficiency Problem Intractable R11.2 Active 269295235 vomiting with nausea, unspecified vomiting type Problem Dysuria R30.0 Active 20556107 Problem Nausea R11.0 Active 999432009 Problem Tinea unguium B35.1 Active 619093890 ALLERGIES Allergen (clinical drug Drug/Non Drug Allergy Reaction Allergy Type Onset Date Status ingredient) documented on EMR erythromycin Erythromycin([facility] Unknown Drug Allergy Acti ve Code:[address]-48) ENCOUNTERS from 1960 to 2020-01-13 Encounter Location Date Provider Diagnosis [facility] [address] [facility] [address] Dec, Crista irby of [facility] [address] [place], [place] [address] R19.7 and Environmental allergies Z91.0 9 IMMUNIZATIONS [...] Name:Crista Chiang, 2020-03-01 02 :00:00 PM, [address] [facility], [address], [place], [address], Insurance Providers Payer Name Payer Payer Insured Patient Coverage Coverage End Address Phone Name Relationship to Start Date Darryn e Insured [place] [phone] Debra Alfaro [facility] [address] [address]
--- OUTSIDE RECORDS SUMMARY | 2020-01-27 23:31 | XMS REPORT ---
[...] Start Date End Date Status Dosage Topiramate [facility] 65652689794 50 MG Orally Active 1 ta blet Twice a day Results No Known Results Summary Purpose eClinicalWorks Submission
--- OUTSIDE RECORDS SUMMARY | 2020-01-27 23:31 | XMS REPORT ---
:1960 Author Organization [facility] Address [address] [place] [address] Care Team Providers Name Role Phone Mariia Unavailable [phone] PROBLEMS Type Condition ICD9-CM [id number] Onset Condition SNOMED Code Notes Code Code Dates Status Problem History of brain Z85.841 Active 735070793 cancer in adulthood Problem Bilateral change H91.93 Active 511094565 in hearing Problem Vision changes H53.9 Active 159948824 Problem Malignant C34.11 Active 875944076 neoplasm of upper lobe of right lung Problem Shortness of R06.02 Active 163786208 breath Problem Cough R05 Active 50076725 Problem Migraine with G43.101 Active 8079972 aura and with status migrainosus, not intractable Problem Vaginal atrophy N95.2 Active 288370687 Problem Wheezing R06.2 Active 97362373 Problem Environmental Z91.09 Active 228477309 allergies Problem 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 92541945 insufficiency Problem Intractable R11.2 Active 407192964 vomiting with nausea, unspecified vomiting type Problem Dysuria R30.0 Active 13234803 Problem Nausea R11.0 Active 047791717 Problem Tinea unguium B35.1 Active 998879672 ALLERGIES Allergen (clinical drug Drug/Non Drug Allergy Reaction Allergy Type Onset Date Status ingredient) documented on EMR erythromycin Erythromycin([facility] Unknown Drug Allergy Acti ve Code:[address]-10) ENCOUNTERS from 1960 to 2020-01-14 Encounter Location Date Provider Diagnosis [facility] [address] [facility] [address] [place] [address] Dec, [address] [place] [address] IMMUNIZATIONS Vaccine Route Administration Date Status Adacel [...] Name:Crista Chiang, 2020-03-01 02 :00:00 PM, [address] [facility], [address], [place], [address], Insurance Providers Payer Name Payer Payer Insured Patient Coverage Coverage End Address Phone Name Relationship to Start Date Darryn e Insured [place] [phone] Debra Alfaro [facility] [address] [address]
--- OUTSIDE RECORDS SUMMARY | 2020-01-27 23:31 | XMS REPORT ---
[...] Medications Results No Known Results Summary Purpose [email or web address] Submission
--- OUTSIDE RECORDS SUMMARY | 2020-01-27 23:31 | XMS REPORT ---
[...] End Status Dosage System Date Date Aspirin [facility] 60642765029 81 MG Orally Active 1 table t Once a day Topiramate ND 10370038507 50 MG Orally Active 1 ta blet Once a day Ondansetron HCl [facility] 54344203533 4 MG Oral twice Acti ve 1 tablet a day ProAir HFA [facility] 65142738837 108 (90 Base) Jan 27, Active 2 p uffs as MCG/ACT 2019 needed Inhalation every 6 hrs Acetaminophen-C ND 91310969605 300-30 MG Apr 27, Active 1 tablet as odeine #3 Orally every 6 2020 needed hrs Folic Acid ND 01896948477 1 MG Oral Active TAKE ON E (1) TABLET(S) BY MOUTH ONCE A DAY (START 5 DAYS BEFORE CHEMO AND FINISH 21 DAYS AFTER). Zofran ND 18163387517 4 MG Orally Active 1 tablet Once a day Pantoprazole ND 58652079402 40 MG Oral Active TAKE ONE (1) Sodium TABLET(S) BY MOUTH ONCE A DAY. Penla NDC 0 8% Topically Nov 29Oct Active 1 applicati on Once daily 2019, to 1st toes 2028 of both feet Results No Known Results Summary Purpose eClinicalWorks Submission
--- OUTSIDE RECORDS SUMMARY | 2020-01-27 23:31 | XMS REPORT ---
[...] Start Date End Date Status Dosage Estrace [facility] 99168412051 0.1 MG/GM Vaginal Dec 10, Active 0 .5 gm daily X 1 week 2019 then reduce to Twice weekly Results No Known Results Summary Purpose eClinicalWorks Submission
[2020-01-28] MEDS ORDERED: NA CHLORIDE 0.9% 500 ML ONE (00:16)
[2020-01-28 00:33] LABS: Absolute Lymphocytes (CBC) 3.7 K/uL (0.7-4.9); Basophils % 1.3 % (0-1.3); Hematocrit 37.8 % (36.0-45.0); Lymphocytes % 34.6 % (15.3-44.8); MPV 7.7 fL (7.6-11.3)
[2020-01-28] MEDS ORDERED: NA CHLORIDE 0.9% 1,000 ML ONE (00:42)
[2020-01-28] MEDS ORDERED: ONDANSETRON 4 MG/2 ML VIAL ONE ×2 (00:42→03:07)
[2020-01-28] MEDS ORDERED: MORPHINE 4 MG/ML SYR ONE ×2 (00:42→03:07)
[2020-01-28 00:43] LABS: ALT/SGPT 74 U/L (12-78); AST/SGOT 52 U/L (15-37); Albumin 3.3 g/dL (3.4-5.0); Alkaline Phosphatase 119 U/L (45-117); BUN Blood Urea Nitrogen 13 mg/dL (7-18); Bicarbonate 26 mmol/L (21-32); Bilirubin Direct < 0.1 mg/dL (0-0.2); Bilirubin Total 0.2 mg/dL (0.2-1.0); Glucose Level 86 mg/dL (74-106); Lipase 112 U/L (73-393); Potassium 3.6 mmol/L (3.5-5.1); Protein, Total 7.2 g/dL (6.4-8.2); Sodium Level 142 mmol/L (136-145)
--- NOTE | 2020-01-28 02:07 | EDPHYS ---
Physician Documentation [facility] Name: Albania Alfaro Age: 59 yrs Sex: Female : 1960 Arrival Date: 01/27/2020 Time: 23:37 Bed 16 Private MD: ED Physician Marcus Pascual HPI: 01/27 00:03 This 59 yrs old Female presents to ER via Ambulatory with complaints of pkl Abdominal Pain. 00:03 The patient presents with abdominal pain in the upper abdomen. Onset: The pkl symptoms/episode began/occurred 3 day(s) ago. The symptoms do not radiate. 00:04 Patient diagnosed with diverticulitis about 2 weeks ago. Just finished antibiotic pkl therapy 4 days ago. Historical: - Allergies: 01/26 23:48 Erythromycin; wh - Home Meds: 23:50 pantoprazole 40 mg oral TbEC 1 tab 2 times per day [Active]; topiramate 50 mg oral tab wh 1 tab 2 times per day [Active]; folic acid 1 mg Oral tab 1 tab once daily [Active]; - PMHx: 23:48 Cancer; Diverticulitis; Lung Cancer; Vertigo; wh - PSHx: 23:48 Tubal ligation; Cholecystectomy; wh - Immunization history:: Adult Immunizations not up to date. - Social history:: Smoking status: Patient/guardian denies using. ROS: 01/27 00:14 Eyes: Negative for injury, pain, redness, and discharge, ENT: Negative for injury, pkl pain, and discharge, Neck: Negative for injury, pain, and swelling, Cardiovascular: Negative for chest pain, palpitations, and edema, Respiratory: Negative for shortness of breath, cough, wheezing, and pleuritic chest pain. Abdomen/GI: Positive for abdominal pain, of the right upper quadrant and left upper quadrant. Back: Negative for acute changes. : Negative for urinary symptoms. MS/extremity: Negative for acute changes. Skin: Negative for rash. Neuro: Negative for altered mental status, loss of consciousness. Exam: 00:14 Head/Face: Normocephalic, atraumatic. Eyes: Pupils equal round and reactive to light, pkl extra-ocular motions intact. Lids and lashes normal. Conjunctiva and sclera are non-icteric and not injected. Cornea within normal limits. Periorbital areas with no swelling, redness, or edema. ENT: Nares patent. No nasal discharge, no septal abnormalities noted. Tympanic membranes are normal and external auditory canals are clear. Oropharynx with no redness, swelling, or masses, exudates, or evidence of obstruction, uvula midline. Mucous membranes moist. Neck: Trachea midline, no thyromegaly or masses palpated, and no cervical lymphadenopathy. Supple, full range of motion without nuchal rigidity, or vertebral point tenderness. No Meningismus. Chest/axilla: Normal chest wall appearance and motion. Nontender with no deformity. No lesions are appreciated. Cardiovascular: Regular rate and rhythm with a normal S1 and S2. No gallops, murmurs, or rubs. Normal PMI, no JVD. No pulse deficits. Respiratory: Lungs have equal breath sounds bilaterally, clear to auscultation and percussion. No rales, rhonchi or wheezes noted. No increased work of breathing, no retractions or nasal flaring. 00:14 Abdomen/GI: Bowel sounds: normal, Palpation: soft, in the right upper quadrant and left upper quadrant, mild abdominal tenderness. 00:14 Back: Exam negative for acute changes. 00:14 : Exam negative for acute changes. 00:14 Musculoskeletal/extremity: Exam is negative for acute changes. 00:14 Skin: Exam negative for rash. 00:14 Neuro: Orientation: is normal, Mentation: is normal, Cranial nerves: grossly normal, Motor: is normal. Vital Signs: 01/26 23:55 BP 143 / 68; Pulse 78; Resp 16; Temp 98.6(O); Pulse Ox 100% on R/A; Weight 81.65 kg jb4 (R); Height 5 ft. 4 in. (162.56 cm) (R); Pain 11/08; 01/27 00:48 BP 129 / 65; Pulse 66; Resp 16; Pulse Ox 97% on R/A; jb4 01:45 BP 111 / 59; Pulse 60; Resp 16; Pulse Ox 99% on R/A; jb4 02:45 BP 113 / 57; Pulse 56; Resp 16; Pulse Ox 99% on R/A; jb4 01/26 23:55 Body Mass Index 30.90 (81.65 kg, 162.56 cm) jb4 MDM: 01/26 23:39 Patient medically screened. pkl 01/27 02:01 Data reviewed: vital signs, nurses notes, lab test result(s), radiologic studies, CT pkl scan. ED course: Patient feeling better. Discussed lab and CT Scan results with patient. Advised to follow up with her PCP/ [facility] specialist in 2 to 3 days. Patient understood instructions. 01/27 00:01 Order name: Basic Metabolic Panel; Complete Time: :55 pkl 01/27 00:01 Order name: CBC with Diff; Complete Time: :55 pkl 01/27 00:01 Order name: Hepatic Function; Complete Time: :55 pkl 01/27 00:01 Order name: Lipase; Complete Time: :55 pkl 01/27 00:02 Order name: CT Abd/Pelvis - IV Contrast Only pkl 01/27 00:01 Order name: IV Saline Lock; Complete Time: 00:19 pkl 01/27 00:01 Order name: Labs collected and sent; Complete Time: 00:19 pkl Administered Medications: 00:01 CANCELLED (Duplicate Order): NS 0.9% 500 ml IV at bolus once pkl 00:01 CANCELLED (Duplicate Order): NS 0.9% 500 ml IV at bolus once pkl 00:10 Drug: NS 0.9% 500 ml Route: IV; Rate: bolus; Site: left forearm; jb4 01:00 Follow up: Response: No adverse reaction; IV Status: Completed infusion jb4 00:31 Drug: Zofran (Ondansetron) 4 mg Route: IVP; Site: left forearm; jb4 01:00 Follow up: Response: No adverse reaction; Pain is decreased; RASS: Alert and Calm (0) jb4 00:33 Drug: morphine 4 mg Route: IVP; Site: left forearm; jb4 02:13 Follow up: Response: No adverse reaction; Pain is decreased; RASS: Alert and Calm (0) jb4 01:19 Drug: NS 0.9% 1000 ml Route: IV; Rate: 125 ml/hr; Site: left forearm; jb4 03:01 Follow up: Response: No adverse reaction; IV Status: Order to discontinue infusion jb4 03:01 Drug: morphine 4 mg Route: IVP; Site: left forearm; jb4 03:01 Follow up: Response: No adverse reaction; Medication administered at discharge. jb4 03:01 Drug: Zofran (Ondansetron) 4 mg Route: IVP; Site: left forearm; 4 03:01 Follow up: Response: No adverse reaction; Medication administered at discharge. jb4 Disposition: 01/28/20 02:05 Discharged to Home. Impression: Abdominal pain. - Condition is Stable. - Medication Reconciliation Form, Thank You Letter, Antibiotic Education, Prescription Opioid Use form. - Follow up: Private Physician; When: 2 - 3 days; Reason: Re-evaluation by your physician. - Problem is new. - Symptoms have improved. Signatures: Dispatcher [employer] EDMS Marcus Pascual MD MD pkl Lam Brady RN RN jb4 Weston Tatum Corrections: (The following items were deleted from the chart) 00:01 00:01 NS 0.9% 500 ml IV at bolus once ordered. pkl pkl 00:01 00:01 NS 0.9% 500 ml IV at bolus once ordered. pkl pkl 03:03 02:05 01/28/2020 02:05 Discharged to Home. Impression: Abdominal pain. Condition is jb4 Stable. Forms are Medication Reconciliation Form, Thank You Letter, Antibiotic Education, Prescription Opioid Use. Follow up: Private Physician; When: 2 - 3 days; Reason: Re-evaluation by your physician. Problem is new. Symptoms have improved. pkl
--- NOTE | 2020-01-28 02:07 | ER ---
Nurse's Notes [facility] Name: Albania Alfaro Age: 59 yrs Sex: Female : 1960 Arrival Date: 01/27/2020 Time: 23:37 Bed 16 Private MD: Diagnosis: Abdominal pain Presentation: 01/26 23:45 Chief complaint: Patient states: Hx of Diverticulitis just finished Abx therapy last Saturday. Pt now C/O of upper abdominal pain getting worse for the past 3 days. Denies any other symptoms. Coronavirus screen: Client denies travel out of the [place] in the last 14 days. At this time, the client does not indicate any symptoms associated with coronavirus-19. Ebola Screen: Patient negative for fever greater than or equal to 101.5 degrees Fahrenheit, and additional compatible Ebola Virus Disease symptoms Patient denies exposure to infectious person. Initial Sepsis Screen: Does the patient meet any 2 criteria? No. Patient's initial sepsis screen is negative. Does the patient have a suspected source of infection? Yes: Acute abdominal pain. Risk Assessment: Do you want to hurt yourself or someone else? Patient reports no desire to harm self or others. Onset of symptoms was January 27, 2020. 23:45 Method Of Arrival: Ambulatory 23:45 Acuity: AILYN 3 wh Historical: - Allergies: 23:48 Erythromycin; - Home Meds: 23:50 pantoprazole 40 mg oral TbEC 1 tab 2 times per day [Active]; topiramate 50 mg oral tab wh 1 tab 2 times per day [Active]; folic acid 1 mg Oral tab 1 tab once daily [Active]; - PMHx: 23:48 Cancer; Diverticulitis; Lung Cancer; Vertigo; - PSHx: 23:48 Tubal ligation; Cholecystectomy; - Immunization history:: Adult Immunizations not up to date. - Social history:: Smoking status: Patient/guardian denies using. Screenin:48 Abuse screen: Denies threats or abuse. Denies injuries from another. Nutritional screening: No deficits noted. Tuberculosis screening: No symptoms or risk factors identified. Fall Risk None identified. Assessment: 23:50 General: Appears in no apparent distress. uncomfortable, Behavior is calm, cooperative, jb4 appropriate for age. Pain: Complains of pain in abdomen Pain does not radiate. Pain currently is 8 out of 10 on a pain scale. Quality of pain is described as burning. Neuro: Level of Consciousness is awake, alert, obeys commands, Oriented to person, place, time, situation. Cardiovascular: Patient's skin is warm and dry. Respiratory: Airway is patent. GI: Bowel sounds present X 4 quads. Abd is soft X 4 quads Abd is non tender in umbilical area, suprapubic area, right upper quadrant, left upper quadrant and left lower quadrant Abdomen is tender to palpation in epigastric area and right lower quadrant. : No signs and/or symptoms were reported regarding the genitourinary system. EENT: No signs and/or symptoms were reported regarding the EENT system. Derm: Skin is intact, Skin is pink, warm \T\ dry. Musculoskeletal: Circulation, motion, and sensation intact. Range of motion: intact in all extremities. 01/27 00:48 Reassessment: Patient appears in no apparent distress at this time. Patient and/or jb4 family updated on plan of care and expected duration. Pain level reassessed. Patient is alert, oriented x 3, equal unlabored respirations, skin warm/dry/pink. 01:28 Reassessment: No changes from previously documented assessment. Patient and/or family jb4 updated on plan of care and expected duration. Pain level reassessed. Patient is alert, oriented x 3, equal unlabored respirations, skin warm/dry/pink. PT reports pain has decreased to 7/10 and is requesting something else for pain, provider notified. No orders at this time. 02:05 Reassessment: D/c pending ride home. jb4 02:30 Reassessment: Patient appears in no apparent distress at this time. Patient and/or jb4 family updated on plan of care and expected duration. Pain level reassessed. Patient is alert, oriented x 3, equal unlabored respirations, skin warm/dry/pink. Vital Signs: 01/26 23:55 BP 143 / 68; Pulse 78; Resp 16; Temp 98.6(O); Pulse Ox 100% on R/A; Weight 81.65 kg jb4 (R); Height 5 ft. 4 in. (162.56 cm) (R); Pain 8/10; 01/27 00:48 BP 129 / 65; Pulse 66; Resp 16; Pulse Ox 97% on R/A; jb4 01:45 BP 111 / 59; Pulse 60; Resp 16; Pulse Ox 99% on R/A; jb4 02:45 BP 113 / 57; Pulse 56; Resp 16; Pulse Ox 99% on R/A; jb4 01/26 23:55 Body Mass Index 30.90 (81.65 kg, 162.56 cm) 4 ED Course: 01/26 23:37 Patient arrived in ED. ds1 23:39 Marcus Pascual MD is Attending Physician. pkl 23:40 Lam Brady, KRISTOPHER is Primary Nurse. jb4 23:47 Triage completed. wh 23:49 Patient has correct armband on for positive identification. Placed in gown. Bed in low wh position. Call light in reach. Side rails up X 1. Pulse ox on. NIBP on. 01/27 00:10 Initial lab(s) drawn, by me, sent to lab. Inserted saline lock: 20 gauge in left jb4 forearm, using aseptic technique. Blood collected. 00:53 CT Abd/Pelvis - IV Contrast Only In Process Unspecified. EDMS 03:02 No provider procedures requiring assistance completed. IV discontinued, intact, jb4 bleeding controlled, No redness/swelling at site. Pressure dressing applied. Administered Medications: 00:01 CANCELLED (Duplicate Order): NS 0.9% 500 ml IV at bolus once pkl 00:01 CANCELLED (Duplicate Order): NS 0.9% 500 ml IV at bolus once pkl 00:10 Drug: NS 0.9% 500 ml Route: IV; Rate: bolus; Site: left forearm; 4 01:00 Follow up: Response: No adverse reaction; IV Status: Completed infusion jb4 00:31 Drug: Zofran (Ondansetron) 4 mg Route: IVP; Site: left forearm; jb4 01:00 Follow up: Response: No adverse reaction; Pain is decreased; RASS: Alert and Calm (0) 4 00:33 Drug: morphine 4 mg Route: IVP; Site: left forearm; jb4 02:13 Follow up: Response: No adverse reaction; Pain is decreased; RASS: Alert and Calm (0) [facility] 01:19 Drug: NS 0.9% 1000 ml Route: IV; Rate: 125 ml/hr; Site: left forearm; jb4 03:01 Follow up: Response: No adverse reaction; IV Status: Order to discontinue infusion jb4 03:01 Drug: morphine 4 mg Route: IVP; Site: left forearm; jb4 03:01 Follow up: Response: No adverse reaction; Medication administered at discharge. jb4 03:01 Drug: Zofran (Ondansetron) 4 mg Route: IVP; Site: left forearm; jb4 03:01 Follow up: Response: No adverse reaction; Medication administered at discharge. jb4 Outcome: 02:05 Discharge ordered by . sheila 03:02 Discharged to home ambulatory, with family. jb4 03:02 Condition: stable 03:02 Discharge instructions given to patient, Instructed on discharge instructions, follow up and referral plans. Demonstrated understanding of instructions, follow-up care. 03:03 Patient left the ED. jb4 Signatures: Dispatcher [employer] EDMarcus Mathews MD MD pkl Sanford, Demi ds1 Lam Brady, RN RN jb4 Weston Tatum
[2020-01-28 03:11] VITALS: TEMP 98.6
[2020-01-28 03:14] VITALS: O2SAT 99
[2020-01-28 03:16] VITALS: BP 113/57
--- NOTE | 2020-01-28 12:55 | RAD REPORT ---
EXAM DESCRIPTION: CT - Abdomen Pelvis W Contrast - 01/28/2020 6:37 am CLINICAL HISTORY: ABD PAIN COMPARISON: None. TECHNIQUE: CT ABDOMEN PELVIS WITH IV CONTRAST on 01/28/2020 12:02 AM CDT This exam was performed according to our departmental dose-optimization program, which includes autom ated exposure control, adjustment of the mA and/or kV according to patient size and/or use of iterati ve reconstruction technique. FINDINGS: Lower lungs are clear. Abdomen: The liver is normal in appearance. There is no biliary dilatation. Cholecystectomy was perfo rmed. There is a tiny duodenal diverticulum. The pancreas and spleen are normal in appearance. The ad renal glands and kidneys are unremarkable. Abdominal aorta is normal in course and caliber without aneurysm. There is no free air. There is no r etroperitoneal adenopathy. Pelvis: There is mild distal colonic diverticulosis. There is large amount of stool throughout the co yanick. Urinary bladder is unremarkable. There is no free fluid. Uterus is normal in size. Appendix is n ormal. Skeleton: There are no acute osseous findings. No suspicious bony lesions. IMPRESSION: No definite acute process. Constipation. Electronically signed by: Carlos Franco MD 01/28/2020 1:08 AM CDT Due to temporary technical issues with the PACS/Fluency reporting system, reports are being signed by the in house radiologists without review as a courtesy to insure prompt reporting. The interpreting radiologist is fully responsible for the content of the report.
== END 2020-01-28 03:03 | disposition home or self-care (01) ==
LOC: ER 23:27
DX: R10.10 Upper abdominal pain, unspecified (principal); Z85.118 Personal history of other malignant neoplasm of bronchus and lung; Z88.3 Allergy status to other anti-infective agents
CPT/HCPCS: 96361; 85025; 80048; 36415; 82565; 80076; 83690; 74177; 96375; 96374; 99284; Q9967; J7040; J7030; J2405 ×2

== ENCOUNTER 2020-04-23 19:19 | Emergency (ER) | payer OTHER ==
--- OUTSIDE RECORDS SUMMARY | 2020-04-23 19:21 | XMS REPORT | Clinical Summary ---
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 iller/Ad Head NA / hesive [id number] Sealant Durasl Spine 5ml [id number] - [id number] Cement/F N/A: INT EGRA LIFESCI 07/30/[id number] / Implanted: Qty: 1 on 03/06/2018 by Robert Wise i, MD at [facility] iller/Ad Head / hesive [id number] Plt Str Lp-Neuro 2h 12mm Ti Ns [id number] - Sna Fracture N/A: SYNTH ES:SYNTHES 421.502 / Implanted: Qty: 2 on 03/06/2018 by Robert Wise i, MD at [facility] /[employer] NA / n NA Plt Str Lp-Neuro 4h 12mm Ti Ns 421.504 - Sna Fracture N/A: SYNTH ES:SYNTHES 421.504 / Implanted: Qty: 1 on 03/06/2018 by Robert Wise i, MD at [facility] /[employer] NA / n NA Scr Sd Mtrxneu 4mm Ti Ns [id number] - Sna Fracture N/A: SYNTH ES:SYNTHES [id number] / Implanted: Qty: 8 on 03/06/2018 by Robert Wise i, MD at [facility] /[employer] [place] NA / n NA Graft Suturable Bp 4x5cm [id number] - [id number] Graft/Pa N/A: IN TEGRA LIFESCI 03/31/2022 [id number] / Implanted: Qty: 1 on 03/06/2018 by Robert Wise i, MD at [facility] Head [id number] / [id number] Results Not on fileafter 04/23/2019 Advance Directives For more information, please contact: [phone] Code Status Date Activated Date Inactivated Comments Full Code 02/27/2018 3:43 AM This code status was determined by: Patient
--- OUTSIDE RECORDS SUMMARY | 2020-04-23 19:23 | XMS REPORT | Continuity of Care Document ---
:1960 Author Organization [facility] t Address [address] [place] [address] Care Team Providers Name Role Phone Chelsi WIN Attending Clinician CORONA MÁRQUEZ Attending Clinician Unavailable CORONA MÁRQUEZ Admitting Clinician Unavailable Problems Condition Condition Condition Status Onset Resolution Last Treating Co mments Source Name Details Category Date Date Treatment Clinician Date Cerebellar Cerebellar Disease Active 2017-[address] [facility] Mass of Mass of Disease Active 2017-[address] [facility] right lung right lung 04-29 Gwen [facility] - [facility] Hydrocepha Hydrocepha Disease Active 2017-[address] mikie mikie 04-29 [facility] Bandemia Bandemia Disease Active 2017[facility]04 [facility] Allergies, Adverse Reactions, Alerts Allergy Allergy Status Severity Reaction(s) Onset Inactive Treating Comm ents Source Name Type Date Date Clinician Erythrom Propensi Active 2017-[address] [facility] ty to 04-29 [facility] - adverse [facility] fever. Medical reaction 00 [facility] s Erythrom Adverse Active Info Not [facility] Reaction Available [facility] Family History Family Member Diagnosis Comments Start Date Stop Date Source Natural father Coronary artery disease [facility] Natural father Diabetes [facility] Natural father Hypertension [facility] Natural mother Breast cancer [facility] Social History Social Habit Start Date Stop Date Quantity Comments Source History of tobacco Current smoker [facility] use [facility] Sex Assigned At [facility] Tobacco use and 2018-03-27 2018-03-27 Never used [facility] - exposure 00:00:00 00:00:00 [facility] Smoking Status Start Date Stop Date Source Former smoker 2018-03-27 00:00:00 2018-03-27 00:00:00 [facility] Medications Ordered Filled Start Stop Current Ordering Indication Dosage Frequency Signature Comments Components Source Medication Medication Date Date Medication? Clinician (SIG) Name Name Topiramate Topiramate Yes Crista 1 tablet [facility] Immunizations Ordered Filled Immunization Date Status Comments Sourc e Immunization Name Name TDAP > 7 TDAP > 7 2019-10-21 Completed [facility] - Years-Adacel Years-Adacel 00:00:00 [facility] Procedures This patient has no known procedures. Plan of Care Planned Activity Planned Date Details Comments Source Future Scheduled 2019-12-01 INFLUENZA VACCINE (#1) [facility]00 [code = INFLUENZA Medical Ce nter VACCINE (#1)] Future Scheduled 2003 Lipid panel [facility] Test 00:[facility]:00 (procedure) [code = [facility] 93902520] Future Scheduled [address] [facility] - Test 00:00:00 malignant neoplasm of [facility] cervix (procedure) [code = 825930288] Future Scheduled [address] [facility] - Test 00:00:00 0-64 YRS (1 of 1 - Medical C enter PPSV23) [code = PNEUMOCOCCAL VACCINE 0-64 YRS (1 of 1 - PPSV23)] Future Scheduled [address] [facility] - Test 00:00:00 malignant neoplasm of [facility] breast (procedure) [code = 656169469] Future Scheduled 1960 [facility]00 [facility] colon (procedure) [code = 962957089] Encounters Start End Encounter Admission Attending Care Care Encounter Source Date/Time Date/Time Type Type Clinicians Facility Department ID 2020-04-21 2020-04-21 Office Chelsi [facility] [id number] 16:09:57 17:15:17 Visit Porsche Mcclure [id number] Jared [id number] [id number] [place] [address] Building 2020-04-13 2020-04-13 Outpatient [facility] [id number] [facility] 2020-03-03 2020-03-03 Outpatient [facility] [id number] [facility] 2020-03-02 2020-03-02 Outpatient [facility]ML[facility] [id number] [facility] 2020-03-01 2020-03-01 Outpatient [facility] [id number] [facility] 2020-01-20 2020-01-20 Outpatient [facility]ML[facility] [id number] [facility] 2020-01-14 2020-01-14 Outpatient [facility] [id number] [facility] 2020-01-12 2020-01-12 Outpatient [facility]ML[facility] [id number] [facility] 2019-12-18 2019-12-18 [facility] [id number] 18:18:00 18:18:00 [facility] Medicine Outpati ent Clinics 2019-12-11 2019-12-11 Outpatient [facility] [id number] 08:20:00 08:20:00 [facility] Out[facility] Clinics 2019-12-03 2019-12-03 Outpatient [facility] [id number] 10:27:00 10:27:00 [facility] 2019-11-30 2019-11-30 [facility] [id number] 09:40:00 09:40:00 [facility] Medicine Medicine Outpati ent Clinics 2019-10-21 2019-10-21 [facility] [id number] 14:40:00 14:40:00 [facility] Medicine Medicine Outpati ent Clinics 2019-08-25 2019-08-25 [facility] [id number] 10[facility]40:00 10:40:00 [facility] Medicine l Medicine Outpati ent Clinics 2019-06-16 2019-06-16 [facility] [id number] 18:08:00 18:08:00 [facility] Medicine l Medicine Outpati ent Clinics 2019-05-26 2019-05-26 [facility] [id number] 13:00:00 13:00:00 [facility] Medicine Medicine Outpati ent Clinics 2019-05-11 2019-05-11 [facility] [id number] 16[facility]17:00 16:17:00 [facility] Medicine Medicine Outpati ent Clinics 2019-04-30 2019-04-30 [facility] [id number] 11:00:00 11:00:00 [facility] Medicine Medicine Outpati ent Clinics 2019-01-27 2019-01-27 [facility] [id number] 08:00:00 08:00:00 [facility] 2019-01-19 2019-01-19 Outpatient Esperanza Matat [id number] 14:31:00 14:31:00 [facility] ent [facility] 2019-01-13 2019-01-13 [facility] [id number] 16:00:00 16:00:00 [facility] Outpati ent [facility] 2019-01-09 2019-01-09 [facility] [id number] 16:16:00 16:16:00 [facility] ent [facility] 2018-12-11 2018-12-11 [facility] [id number] 11:00:00 11:00:00 [facility] ent [facility] Results Test Description Test Time Test Comments Results Result Sourc e Comments TISSUE EXAM 2018-05-24 Surgical Pathology Report 13:16:00 Case: [id number] Authorizing Provider: Robert Hightower MD Collected: 03/06/2018 1828 Ordering Location: [facility] Received: 03/07/2018 0900 SERVICES Pathologist: Blu Bowers MD Specimen: Tumor The following results were reported by [employer]. Please see attached reports.PD-L1 22C3 FDA analysis confirms HIGH EXPRESSIONBRAF gene rearrangement is NOT DETECTEDROS1 gene rearrangement is NOT DETECTEDALK gene rearrangement is NOT DETECTEDEGFR mutations in exons 18, 19, 20 T790M and other mutations, 21Addendum electronically signed by Blu Bowers MD on 05/24/2018 at 1:16 PMBRAIN, CEREBELLUM, CRANIOTOMY:METASTATIC ADENOCARCINOMA WITH FOCAL SQUAMOUS DIFFERENTIATION (SEE COMMENT) Signing Pathologist Direct Phone Line: [phone] y signed by Blu Bowers MD on [...] tumor cells. Tumor is negative for p63. 64135; 07627; 68536 x 6Cancer of cerebellumTumor of craniumThe specimen [...] stains. Immunohistochemistry technical testing was performed at [facility], Pathology Laboratory where it was developed and [...] Reference Range Interpretation Comme nts POC-GLUCOSE METER ([employer]) (test 174 mg/dL 70-110 H TESTED AT [facility] [address] code = 1538) [facility] 7703 0 POCT-GLUCOSE [id number] 12:07:00 Test Item Value Reference Range Interpretation Comments POC-GLUCOSE METER 114 mg/dL 70-110 H TESTED AT [facility] [address] ([employer]) (test code = SHELLY Bill [facility] 1538) [address] POCT-GLUCOSE [id number] 07:14:00 Test Item Value Reference Range Interpretation Comments POC-GLUCOSE METER 104 mg/dL 70-110 TESTED AT [facility] [address] (BEAKER) (test code = [place] 1538) [address] BASIC METABOLIC [id number] 05:46:00 Test Item Value Reference Range Interpretation [...] ESTIMATED GFR. CBC W/PLT COUNT & AUTO [id number] 05:20:00 Test Item Value Reference Range Interpretation [...] PERCENT (BEAKER) (test code = 2802) POCT-GLUCOSE [id number] 21:30:00 Test Item Value Reference Range Interpretation Comments POC-GLUCOSE METER 111 mg/dL 70-110 H TESTED AT [place] [address] ([facility]) (test code = [facility] Bill [facility] 1538) [address] POCT-GLUCOSE [id number] 18:19:00 Test Item Value Reference Range Interpretation Comments POC-GLUCOSE METER 175 mg/dL 70-110 H TESTED AT [place] [address] ([facility]) (test code = [facility] Bill [facility] 1538) [address] POCT-GLUCOSE [id number] 08:28:00 Test Item Value Reference Range Interpretation Comments POC-GLUCOSE METER 143 mg/dL 70-110 H TESTED AT [place] [address] ([facility]) (test code = SHELLY Bill [facility] 1538) [address] BASIC METABOLIC [id number] 06:32:00 Test Item Value Reference Range Interpretation [...] ESTIMATED GFR. CBC W/PLT COUNT & AUTO [id number] 06:29:00 Test Item Value Reference Range Interpretation [...] PERCENT (BEAKER) (test code = 2801) POCT-GLUCOSE [id number] 21:28:00 Test Item Value Reference Range Interpretation Comments POC-GLUCOSE METER 170 mg/dL 70-110 H TESTED AT [place] [address] ([facility]) (test code = [facility] Landy [facility] 1538) [address] POCT-GLUCOSE [id number] 18:02:00 Test Item Value Reference Range Interpretation Comments POC-GLUCOSE METER 180 mg/dL 70-110 H TESTED AT [place] [address] ([facility]) (test code = [facility] 1538) [address] POCT-GLUCOSE [id number] 13:34:00 Test Item Value Reference Range Interpretation Comments POC-GLUCOSE METER 235 mg/dL 70-110 H TESTED AT [place] [address] ([facility]) (test code = [facility] 1538) [address] MR, BRAIN, [id number] 12:29:00FINAL REPORT MRI Brain with and without [...] MDReport Verified Date/Time: 03/08/2018 12:29:16 Reading Location: [address] Neuro Reading Room W/PLT COUNT & AUTO [id number] 07:59:00 Test Item Value Reference Range Interpretation [...] Received comment: User comments: Slide comments:BASIC METABOLIC [id number] 04:18:00 Test Item Value Reference Range Interpretation [...] DATA TO CALCULA TE ESTIMATED GFR. POCT-GLUCOSE [id number] 23:21:00 Test Item Value Reference Range Interpretation Comments POC-GLUCOSE METER 122 mg/dL 70-110 H TESTED AT [facility] 67[address] (BEAKER) (test code = [place] 1538) [address] POCT-GLUCOSE [id number] 22:02:00 Test Item Value Reference Range Interpretation Comments POC-GLUCOSE METER 122 mg/dL 70-110 H TESTED AT [facility] 67[address] (BEAKER) (test code = [place] 1538) [address] POCT-GLUCOSE [id number] 18:27:00 Test Item Value Reference Range Interpretation Comments POC-GLUCOSE METER 120 mg/dL 70-110 H TESTED AT [facility] 67[address] (BEAKER) (test code = [place] 1538) [address] POCT-GLUCOSE [id number] 12:26:00 Test Item Value Reference Range Interpretation Comments POC-GLUCOSE METER 130 mg/dL 70-110 [facility] (BEAKER) (test code = [place] 1538) [address] POCT-GLUCOSE [id number] 08:44:00 Test Item Value Reference Range Interpretation Comments POC-GLUCOSE METER 141 mg/dL 70-110 H TESTED AT [facility] 67[address] (BEAKER) (test code = [place] 1534) [address] CBC W/PLT COUNT & AUTO [id number] 07:37:00 Test Item Value Reference Range Interpretation [...] Received comment: User comments: Slide comments:BASIC METABOLIC [id number] 04:29:00 Test Item Value Reference Range Interpretation [...] m DATA TO CALCULA TE ESTIMATED GFR. [id number] 04:28:00 Test Item Value Reference Range Interpretation Comments PHOSPHORUS (BEAKER) (test code = 3.4 mg/dL 2.3-4.7 604) [id number] 04:28:00 Test Item Value Reference Range Interpretation Comments MAGNESIUM (BEAKER) (test code = 1.9 mg/dL 1.6-2.6 627) POCT-GLUCOSE [id number] 22:29:00 Test Item Value Reference Range Interpretation Comments POC-GLUCOSE METER 147 mg/dL 70-110 H TESTED AT [place] [address] ([facility]) (test code = [facility] 1538) [address] POCT-GLUCOSE [id number] 12:29:00 Test Item Value Reference Range Interpretation Comments POC-GLUCOSE METER 87 mg/dL 70-110 TESTED AT [place] [address] ([facility]) (test code = [facility] [address] 1538) POCT-GLUCOSE [id number] 08:21:00 Test Item Value Reference Range Interpretation Comments POC-GLUCOSE METER 122 mg/dL 70-110 H TESTED AT [place] [address] ([facility]) (test code = [facility] 1538) [address] [id number] 05:32:00 Test Item Value Reference Range Interpretation Comments PROTIME (BEAKER) (test code = 13.1 seconds 11.7-14.7 759) [facility] (test code = 370) 1.0 <=5.9 PARTIAL THROMBOPLASTIN TIME 24.2 seconds 22.5-36.0 (BEAKER) (test code = 760) RECOMMENDED COUMADIN/WARFARIN INR THERAPY RANGESSTANDARD DOSE: 2.0 - 3.0 Includes: PROPHYLAXIS forvenous thrombosis, systemic embolization; TREATMENT for venous thrombosis and/or pulmonary embolus.HIGH RISK: Target INR is 2.5-3.5 for patients with mechanical heart valves.POCT-GLUCOSE [id number] 05:17:00 Test Item Value Reference Range Interpretation Comments POC-GLUCOSE METER 127 mg/dL 70-110 H TESTED AT [place] [address] ([facility]) (test code = [facility] 1538) [address] BASIC METABOLIC [id number] 05:16:00 Test Item Value Reference Range Interpretation [...] ESTIMATED GFR. CBC W/PLT COUNT & AUTO [id number] 04:56:00 Test Item Value Reference Range Interpretation [...] PERCENT (BEAKER) (test code = 2801) POCT-GLUCOSE [id number] 22:07:00 Test Item Value Reference Range Interpretation Comments POC-GLUCOSE METER 157 mg/dL 70-110 H TESTED AT [place] [address] ([facility]) (test code = [facility] 1538) [address] POCT-GLUCOSE [id number] 16:55:00 Test Item Value Reference Range Interpretation Comments POC-GLUCOSE METER 146 mg/dL 70-110 H TESTED AT [place] [address] ([facility]) (test code = [facility] 1538) [address]271 TISSUE [id number] 15:23:00Surgical Pathology Report Case: [id number] Authorizing Provider: Robert Tirado MD Collected: 03/04/2018916 Ordering Location: [facility] Received: 03/04/2018 09 SERVICES Pathologist: Terry Stanford MD Specimens: A) - Lung, Right Upper Lobe, Right upper lobe endobronchial biopsy B) -Lung, Right Upper Lobe, EBBX. Reflex genetic markers. PART A RIGHT UPPER LOBE LUNG, ENDOBRONCHIAL BIOPSY:ADENOCARCINOMA.SEE DIAGNOSTIC COMMENT.PART B RIGHT UPPER LOBE LUNG, ENDOBRONCHIAL BIOPSY:ADENOCARCINOMA.SEE DIAGNOSTIC COMMENT. Signing Pathologist Direct Phone Line:[phone] signed by Terry Stanford MD on 03/05/2018 at 3:23 PMImmunohistochemical studies performed on block B1 demonstrate the tumor cells to be positive for TTF1 and Napsin A. They are negative for ER and PAX8. The immunoprofile is most compatible with an adenocarcinoma of pulmonary origin.25499i9, 72187, 84157o7, 31675M. Right upper lobe endobronchial biopsy. B. Right [...] stains. BLOCK B1- TTF1, NAPSIN A, ER, VDX3Dspgakhjctojfbbqablw technical testing was performed at [facility], Pathology Laboratory where it was developed and [...] complexity clinical laboratory testing.FINE NEEDLE ASPIRATE BY [id number] 12:41:00Medical Cytology Report Case: [id number] Authorizing Provider: Robert Tirado MD Collected: 03/04/2018 1023 Ordering Location: [address] Received: 03/04/2018 1244 Service Pathologist: Ben Vila MD Specimen: Lymph Node, Interlobar, Right, Station 11R LYMPH NODE, INTERLOBAR RIGHT, STATION 11R EBUS FNA BY CLINICIAN (CYTOSPINS OF ASPIRATE): - NEGATIVE FOR MALIGNANCY - LYMPHOCYTES PRESENT Signing Pathologist Direct Phone Line: [phone] signed by Ben Garcia MD on 03/05/2018 at 12:41 PMPlease also see surgical pathology report [id number] and cytopathology reports [id number], 3646, 3647 and 3648. [id number] massLYMPH NODE, INTERLOBAR RIGHT, STATION 11R EBUS FNA40 mls in cytorich red; 2 cytospinsCollected: [id number]: [id number] interpretation of this case included the use of immunohistochemistry or special stains. Immunohistochemistry technical testing was performed at [facility], Pathology Laboratory where it was developed and [...] certified under the Clinical Laboratory Improvement Amendments [id number] (CLIA-88) as qualified to perform high complexity clinical laboratory testing.[facility], Department of Pathology, [address] [place] [address], [facility], [address] [place] [address], [facility], [facility] of [facility]ology, [address] [place] [address], ZVMO NEEDLE ASPIRATE BY [id number] 12:40:00Medical Cytology Report Case: [id number] Authorizing Provider: Robert Tirado MD Collected: 03/04/2018 1008 Ordering Location: [address] Received: 03/04/2018 1244 Service Pathologist: Ben Vila MD Specimen: Lymph Node, Lower Paratracheal, Right, Station 4R LYMPH NODE, LOWER PARATRACHEAL, RIGHT, STATION 4R EBUS FNA BY CLINICIAN (CYTOSPINS AND CELL BLOCK OF ASPIRATE): - NEGATIVE FOR MALIGNANCY Signing Pathologist Direct Phone Line: [phone] signed by Ben Vila MD on 03/05/2018 at 12:40 PMSmears and cell block show good sampling of anthracotic lymph node without granuloma or neoplasm.Please also see surgical pathology report [id number] and cytopathology reports [id number], 3646, 3647 and 3649. 34511, [id number] massLYMPH NODE, LOWER PARATRACHEAL, RIGHT, STATION 4R EBUS FNA40 mls in cytorich red; 2 cytospins, cell blockCollected: [id number]: [id number] interpretation of this case included the use of immunohistochemistry or special stains. Immunohistochemistry technical testing was performed at [facility], Pathology Laboratory where it was developed and [...] qualified to perform high complexity clinical laboratory testing.[facility], Department of Pathology, [address] [place] [address], [facility], [facility] of Path[facility], [address] [place] [address], [facility], Department of [facility]ology, [address] [place] [address], SCOC NEEDLE ASPIRATE BY [id number] 12:38:00Medical Cytology Report Case: [id number] Authorizing Provider: Robert Tirado MD Collected: 03/04/2018 1002 Ordering Location: [address] Received: 03/04/2018 1244 Service Pathologist: Ben Vila MD Specimen: Lymph Node, Subcarinal, Station 7 LYMPH NODE, SUBCARINAL, STATION 7 EBUS FNA BY CLINICIAN (CYTOSPINS AND CELL BLOCK OF ASPIRATE): - NEGATIVE FOR MALIGNANCY Signing Pathologist Direct Phone Line: [phone] signed by Ben Vila MD on 03/05/2018 at 12:38 PMSmears and cell block show good sampling of anthracotic lymph nodewithout granuloma or neoplasm.Please also see surgical pathology report [id number] and cytopathology reports [id number], 3646, 3648 and 3649. 94310, 23122Srxy massLYMPH NODE, SUBCARINAL, STATION 7 FNAPrepared cell block(A2) and 2 cytospins from 40 ml cytorich red fixative specimen Collected: [id number]: [id number] interpretation of this case included the use of immunohistochemistry or special stains.Immunohistochemistry technical testing was performed at [facility], Pathology L aboratory where it was developed [...] qualified to perform high complexity clinical laboratory testing.[facility], Department of Pathology, [address] [place] [address], [facility], Department of Path[facility], [address] [place], [place] [id number], [facility], Department of Pathology, [address] [place] [address], QBBC NEEDLE ASPIRATE BY [id number] 12:35:00Medical Cytology Report Case: [id number] Authorizing Provider: Robert Tirado MD Collected: 03/04/2018 1001 Ordering Location: [address] Received: 03/04/2018 1244 Service Pathologist: Ben Vila MD Specimen: Lymph Node, Lower Paratracheal, Left, Station 4L LYMPH NODE, LOWER PARATRACHEAL, LEFT, STATION 4L, FNA BY CLINICIAN (CYTOSPINS OF ASPIRATE): - NEGATIVE FOR MALIGNANCY PREDOMINANTLY BRONCHIAL EPITHELIAL CELLS Signing Pathologist Direct Phone Line: [phone] signed by Ben Vila MD on 03/05/2018 at 12:35 PMPlease also see surgical pathology report [id number] and cytopathology reports [id number], 3647, 3648 and 3649. [id number] massLYMPH NODE, LOWER PARATRACHEAL, LEFT, STATION 4L FNAPrepared 2 cytospins from 40 ml cytorich red fixative sampleCollected: [id number]: [id number] interpretation of this case included the use of immunohistochemistry or special stains. Immunohistochemistry technical testing was performed at [facility], Pathology Laboratory where it was developed and [...] qualified to perform high complexity clinical laboratory testing.[facility], Department of Pathology, [address] [place] [address], [facility], Department of Patho logy, [address] [place] [address], [facility], Department of Pathology, [address] [place] [address], YLVK-GLUCOSE [id number] 12:34:00 Test Item Value Reference Range Interpretation Comments POC-GLUCOSE METER 119 mg/dL 70-110 H TESTED AT [place] [address] [facility] (test code = SHELLY Bill [place] [address]) [address] FINE NEEDLE ASPIRATE BY [id number] 12:34:00Medical Cytology Report Case: [id number] Authorizing Provider: Robert Tirado MD Collected: 03/04/2018 1001 Ordering Location: [address] Received: 03/04/2018 1244 Service Pathologist: Ben Vila MD Specimen: Lymph Node, Interlobar, Left, Station 11L LYMPH NODE, INTERLOBAR, LEFT, STATION 11L, FNA BY CLINICIAN (CYTOSPINS AND CELL BLOCK OF ASPIRATE): - NEGATIVE FOR MALIGNANCY Signing Pathologist Direct Phone Line: [phone] signed by Ben Vila MD on 03/05/2018 at 12:34 PMSmears and cell block show good sampling of anthracotic lymph node without granuloma or neoplasm.Please also see surgical pathology report [id number] and cytopathology reports [id number], 3647, 3648 and 3649. 06177, [id number] massLYMPH NODE, INTERLOBAR, LEFT, [id number] FNAPrepared cell block(A2) and 2 cytospins from 45 ml cytorich red fixative sampleCollected: [id number]: [id number] interpretation of this case included the use of immunohistochemistry or special stains. Immunohistochemistry technical testing was performed at [facility], Pathology Laboratory where it was developed and [...] qualified to perform high complexity clinical laboratory testing.[facility], Department of Pathology, [address] [place] [id number], [facility], [address] [place] [address], [facility], [facility], [address] [place] [address], FYNG-GLUCOSE [id number] 08:25:00 Test Item Value Reference Range Interpretation Comments POC-GLUCOSE METER 114 mg/dL 70-110 H TESTED AT [place] [address] (BEAKER) (test code = [facility] 153) [address] BASIC METABOLIC [id number] 05:45:00 Test Item Value Reference Range Interpretation [...] ESTIMATED GFR. CBC W/PLT COUNT & AUTO [id number] 05:42:00 Test Item Value Reference Range Interpretation [...] ABSOLUTE COUNT 19.38 K/ L 1.56-6.13 H (AKER) (test code = 670) LYMPHOCYTES ABSOLUTE COUNT 1.81 K/ L 1.18-3.74 (AKER) (test code = 414) MONOCYTES ABSOLUTE COUNT (BEAKER) 0.99 K/ L 0.24-0.36 H (test code = 415) EOSINOPHILS ABSOLUTE COUNT 0.05 K/ L 0.04-0.36 (AKER) (test code = 416) BASOPHILS ABSOLUTE COUNT (BEAKER) 0.04 K/ L 0.01-0.08 (test code = 417) IMMATURE GRANULOCYTES-RELATIVE 1 % 0-1 PERCENT ([facility]) (test code = 2801) BLOOD [id number] 23:01:00 Test Item Value Reference Range Interpretation Comments CULTURE ([facility]) (test No growth in 5 days code = 1095) POCT-GLUCOSE [id number] 20:32:00 Test Item Value Reference Range Interpretation Comments POC-GLUCOSE METER 122 mg/dL 70-110 H TESTED AT [place] [address] ([facility]) (test code = [facility] 1538) [address] POCT-GLUCOSE [id number] 17:53:00 Test Item Value Reference Range Interpretation Comments POC-GLUCOSE METER 199 mg/dL 70-110 H TESTED AT [place] [address] ([facility]) (test code = [facility] 1538) [address] EBUS FNA [id number] 14:00:00 Test Item Value Reference Range Interpretation Comments CYTOLOGY RESULT POINTER See Separate Report [facility] (test code = 2629) EBUS FNA [id number] 14:00:00 Test Item Value Reference Range Interpretation Comments CYTOLOGY RESULT POINTER See Separate Report ([facility]) (test code = 2629) EBUS FNA [id number] 14:00:00 Test Item Value Reference Range Interpretation Comments CYTOLOGY RESULT POINTER See Separate Report (BEAKER) (test code = 2629) EBUS FNA [id number] 14:00:00 Test Item Value Reference Range Interpretation Comments CYTOLOGY RESULT POINTER See Separate Report (BEAKER) (test code = 2629) EBUS FNA [id number] 14:00:00 Test Item Value Reference Range Interpretation Comments CYTOLOGY RESULT POINTER See Separate Report (BEAKER) (test code = 2629) POCT-GLUCOSE [id number] 12:06:00 Test Item Value Reference Range Interpretation Comments POC-GLUCOSE METER 114 mg/dL 70-110 H TESTED AT [facility] 6720 ([facility]) (test code = [place] 1538) [address] BLOOD [id number] 10:00:00 Test Item Value Reference Range Interpretation Comments CULTURE ([facility]) (test No growth in 5 days code = 1095) POCT-GLUCOSE [id number] 08:22:00 Test Item Value Reference Range Interpretation Comments POC-GLUCOSE METER 120 mg/dL 70-110 H TESTED AT [facility] [address] ([facility]) (test code = [place] Bill [place] 1538) [address] [id number] 06:39:00 Test Item Value Reference Range Interpretation Comments PARTIAL THROMBOPLASTIN TIME 25.2 seconds 22.5-36.0 (AKER) (test code = 760) PROTHROMBIN [id number] 06:38:00 Test Item Value Reference Range Interpretation Comments PROTIME (BEAKER) (test code = 13.6 seconds 11.7-14.7 759) INR ([facility]) (test code = 370) 1.0 <=5.9 RECOMMENDED COUMADIN/WARFARIN INR THERAPY RANGESSTANDARD DOSE: 2.0 - 3.0 Includes: PROPHYLAXIS forvenous thrombosis, systemic embolization; TREATMENT for venous thrombosis and/or pulmonary embolus.HIGH RISK: Target INR is 2.5-3.5 for patients with mechanical heart valves.BASIC METABOLIC [id number] 06:38:00 Test Item Value Reference Range Interpretation [...] ESTIMATED GFR. CBC W/PLT COUNT & AUTO [id number] 06:19:00 Test Item Value Reference Range Interpretation [...] IMMATURE GRANULOCYTES-RELATIVE 2 % 0-1 H PERCENT ([facility]) (test code = 2801) POCT-GLUCOSE [id number] 22:29:00 Test Item Value Reference Range Interpretation Comments POC-GLUCOSE METER 175 mg/dL 70-110 H TESTED AT [place] [address] ([facility]) (test code = [facility] 1538) [address] BONE AND/OR JOINT IMAGING, WHOLE [id number] 15:34:00No histologic dx yet, but brain met with lung mass.FINAL REPORT PROCEDURE: BONE SCAN, WHOLE BODY CPT CODE: 91490 INDICATION: Right lung cancer with cerebellar metastasis [...] MDReport Verified Date/Time: 03/03/2018 15:34:30 Reading Location: [address] Reading Room POCT-GLUCOSE [id number] 11:44:00 Test Item Value Reference Range Interpretation Comments POC-GLUCOSE METER 180 mg/dL 70-110 H TESTED AT [place] [address] ([facility]) (test code = [facility] 1538) [address] POCT-GLUCOSE [id number] 08:31:00 Test Item Value Reference Range Interpretation Comments POC-GLUCOSE METER 111 mg/dL 70-110 H TESTED AT [facility] 6720 (BEAKER) (test code = [place] 1538) [address] CBC W/PLT COUNT & AUTO [id number] 05:37:00 Test Item Value Reference Range Interpretation [...] PERCENT (BEAKER) (test code = 2801) POCT-GLUCOSE [id number] 21:27:00 Test Item Value Reference Range Interpretation Comments POC-GLUCOSE METER 202 mg/dL 70-110 H TESTED AT [place] [address] (BEAKER) (test code = [facility] 1538) [address] POCT-GLUCOSE [id number] 13:34:00 Test Item Value Reference Range Interpretation Comments POC-GLUCOSE METER 94 mg/dL 70-110 TESTED AT [place] [address] ([facility]) (test code = [facility] [address] 1538) POCT-GLUCOSE [id number] 08:43:00 Test Item Value Reference Range Interpretation Comments POC-GLUCOSE METER 118 mg/dL 70-110 H TESTED AT [place] [address] ([facility]) (test code = [facility] 1538) [address] URINALYSIS W/ REFLEX URINE [id number] 07:40:00 Test Item Value Reference Range Interpretation [...] code = 516) SOURCE(BEAKER) (test code = 6995) BASIC METABOLIC [id number] 07:17:00 Test Item Value Reference Range Interpretation [...] ESTIMATED GFR. CBC W/PLT COUNT & AUTO [id number] 06:15:00 Test Item Value Reference Range Interpretation [...] PERCENT (BEAKER) (test code = 2801) POCT-GLUCOSE [id number] 21:08:00 Test Item Value Reference Range Interpretation Comments POC-GLUCOSE METER 175 mg/dL 70-110 H TESTED AT [place] [address] ([facility]) (test code = [facility] [place] 1538) [address] POCT-GLUCOSE [id number] 17:48:00 Test Item Value Reference Range Interpretation Comments POC-GLUCOSE METER 114 mg/dL 70-110 H TESTED AT [place] [address] ([facility]) (test code = [place] 1538) [address] POCT-GLUCOSE [id number] 12:27:00 Test Item Value Reference Range Interpretation Comments POC-GLUCOSE METER 119 mg/dL 70-110 H TESTED AT [place] [address] ([facility]) (test code = [place] 1538) [address] BASIC METABOLIC [id number] 08:12:00 Test Item Value Reference Range Interpretation [...] ESTIMATED GFR. CBC W/PLT COUNT & AUTO [id number] 07:21:00 Test Item Value Reference Range Interpretation [...] PERCENT (BEAKER) (test code = 2801) POCT-GLUCOSE [id number] 06:08:00 Test Item Value Reference Range Interpretation Comments POC-GLUCOSE METER 113 mg/dL 70-110 H TESTED AT [place] [address] ([facility]) (test code = [facility] 1538) [address] POCT-GLUCOSE [id number] 18:58:00 Test Item Value Reference Range Interpretation Comments POC-GLUCOSE METER 117 mg/dL 70-110 H TESTED AT [place] [address] ([facility]) (test code = [facility] 1538) [address] CT, CHEST, WITH [id number] 15:20:00FINAL REPORT CT of the Chest, abdomen [...] MDReport Verified Date/Time: 02/28/2018 15:20:36 Reading Location: [address] Body Reading Room CT, [id number] 15:20:00FINAL REPORT CT of the Chest, abdomen [...] MDReport Verified Date/Time: 02/28/2018 15:20:36 Reading Location: [place] [address] CT Body Reading Room POCT-GLUCOSE [id number] 08:55:00 Test Item Value Reference Range Interpretation Comments POC-GLUCOSE METER 125 mg/dL 70-110 H TESTED AT [place] [address] ([facility]) (test code = [place] 1538) [address] MR, BRAIN, [id number] 07:59:00STEALTH protocolFINAL REPORT MRI Brain with and [...] MDReport Verified Date/Time: 02/28/2018 07:59:07 Reading Location: [address] Neuro Reading Room POCT- GLUCOSE [id number] 06:39:00 Test Item Value Reference Range Interpretation Comments POC-GLUCOSE METER 150 mg/dL 70-110 H TESTED AT [facility] 67[address] (BEAKER) (test code = SHE[place] Bill [facility] 1538) [address] BASIC METABOLIC [id number] 05:51:00 Test Item Value Reference Range Interpretation [...] ESTIMATED GFR. CBC W/PLT COUNT & AUTO [id number] 04:09:00 Test Item Value Reference Range Interpretation [...] 417) IMMATURE GRANULOCYTES-RELATIVE 1 % 0-1 PERCENT (AKER) (test code = 2801) POCT-GLUCOSE [id number] 00:17:00 Test Item Value Reference Range Interpretation Comments POC-GLUCOSE METER 122 mg/dL 70-110 H TESTED AT [place] [address] ([facility] (test code = [facility] Landy [facility] 1538) [address] POCT-GLUCOSE [id number] 18:35:00 Test Item Value Reference Range Interpretation Comments POC-GLUCOSE METER 134 mg/dL 70-110 H TESTED AT [place] [address] ([facility]) (test code = [facility] Landy [facility] 1538) [address] POCT-GLUCOSE [id number] 12:10:00 Test Item Value Reference Range Interpretation Comments POC-GLUCOSE METER 146 mg/dL 70-110 H TESTED AT [place] [address] ([facility] (test code = [facility] 1538) [address] [id number] 07:56:00 Test Item Value Reference Range Interpretation Comments PROCALCITONIN (BEAKER) (test code = < ng/mL <0.05 3036) SEPSIS RISK (ng/mL)Low: 0.05-0.50Intermediate: 0.51-2.00High: >=2.01LACTATE DEHYDROGENASE (LDH)2018-02-27 06:52:00 Test Item Value Reference Range Interpretation Comments LACTATE DEHYDROGENASE (BEAKER) (test 146 U/L 125-220 code = 635) C-REACTIVE [id number] 06:52:00 Test Item Value Reference Range Interpretation Comments C-REACTIVE PROTEIN (BEAKER) (test 8.22 mg/dL 0.00-0.50 H code = 676) LACTIC ACID, ARTERIAL, WHOLE [id number] 06:01:00 Test Item Value Reference Range Interpretation Comments LACTATE BLOOD ARTERIAL (2) 1.0 mmol/L 0.5-2.2 (BEAKER) (test code = 2874) BASIC METABOLIC [id number] 05:52:00 Test Item Value Reference Range Interpretation [...] DATA TO CALCULA TE ESTIMATED GFR. TROPONIN [id number] 05:48:00 Test Item Value Reference Range Interpretation Comments TROPONIN I (BEAKER) (test code = 397) < ng/mL 0.00-0.03 [id number] 05:43:00 Test Item Value Reference Range Interpretation Comments MAGNESIUM (BEAKER) 2.1 mg/dL 1.6-2.6 Specimen slightly (test code = 627) hemolyzed [id number] 05:43:00 Test Item Value Reference Range Interpretation Comments PHOSPHORUS (BEAKER) 4.1 mg/dL 2.3-4.7 Specimen slightly (test code = 604) hemolyzed CBC W/PLT COUNT & AUTO [id number] 05:34:00 Test Item Value Reference Range Interpretation [...] PERCENT (BEAKER) (test code = 2801) POCT-GLUCOSE [id number] 05:32:00 Test Item Value Reference Range Interpretation Comments POC-GLUCOSE METER 118 mg/dL 70-110 H TESTED AT [facility] 6720 (BEAKER) (test code = [place] 1538) [address] [id number] 05:20:00 Test Item Value Reference Range Interpretation [...] 2.5-3.5 for patients with mechanical heart valves.PROTHROMBIN [id number] 05:19:00 Test Item Value Reference Range Interpretation [...]
--- OUTSIDE RECORDS SUMMARY | 2020-04-23 19:24 | XMS REPORT | Summary of Care ---
:1960 Author Organization [facility] Address [address] [place] [id number] Care Team Providers Name Role Phone Surekha Chiang Primary Care Provider Reason for Referral Radiology Services (Routine) Status Reason Specialty Diagnoses / Referred By Referred To Procedures Contact Contact Closed Diagnostic Diagnoses Pain pelvic Porsche Gagnon, Radiology Procedures US PELVIS COMPLETE WITH TRANSVAGINAL PA-C [address] [place] [phone] Reason for Visit Reason Comments Abdominal Pain Encounter Details Date Type Department Care Team Description 04/07/2020 Office Visit [facility] Porsche Gagnon, Pain pelvic (Primary Dx); [facility] [place] PA-C Adenocarcinoma of lung, stage 4, unspeci fied laterality; [address] [place] [address]; Drive, [address] Drive Visit for gynecologic examination [place] [phone] [place], [place] [phone] Allergies Active Allergy Reactions Severity Noted Date Comments Macrolide Antibiotics Unknown - See comments 8 documented as of this encounter (statuses as of 04/21/2020) Medications Medication Sig Dispensed Refills Start Date End Date Status meclizine 25 mg tablet Take 1 tablet by 28 tablet 0 02/22/2018 Active mouth every 6 (six) hours. topiramate 50 mg tablet TAKE ONE (1) 0 05/28/2019 Active TABLET(S) BY MOUTH ONCE A DAY. pantoprazole 40 mg EC TAKE ONE (1) 0 05/21/2019 Active tablet TABLET(S) BY MOUTH ONCE A DAY. Fluticasone-Salmeterol Take 1 Puff by 0 Active 500-50 mcg/dose mouth. inhalation disk PROAIR HFA 90 INHALE ONE (1) 0 04/07/2019 Active mcg/actuation inhaler TO TWO (2) PUFF(S) BY MOUTH EVERY FOUR TO SIX HOURS. ondansetron (ZOFRAN) 4 Take 4 mg by 0 Active mg tablet mouth every 8 (eight) hours as needed. dexAMETHasone 4 mg TAKE ONE (1) 0 02/02/2020 Active tablet TABLET(S) BY MOUTH TWICE A DAY FOR 3 DAYS (START THE DAY BEFORE EACH CHEMO TREATMENT). dicyclomine 10 mg TAKE ONE (1) 0 01/29/2020 Active capsule CAPSULE(S) BY MOUTH EVERY EIGHT HOURS NEEDED. foLIC acid 1 mg tablet TAKE ONE (1) 0 03/09/2020 Active TABLET(S) BY MOUTH ONCE A DAY START 5 DAYS BEFORE CHEMO AND FINISH 21 DAYS AFTER CHEMO. ferrous sulfate (IRON Take by mouth. 0 Active ORAL) aspirin 325 mg tablet Take 325 mg by 0 Active mouth daily. 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 documented as of this encounter Last Filed Vital Signs Vital Sign Reading Time Taken Comments Blood Pressure 104/62 04/07/2020 3:03 PM CHAIR TRIMMER Pulse 71 04/07/2020 3:03 PM CHAIR TRIMMER Temperature 36.7 C (98 F) 04/07/2020 3:03 PM CHAIR TRIMMER Respiratory Rate 18 04/07/2020 3:03 PM CHAIR TRIMMER Oxygen Saturation - - Inhaled Oxygen Concentration - - Weight 83.9 kg (185 lb) 04/07/2020 3:03 PM CHAIR TRIMMER Height 162.6 cm (5' 4") 04/07/2020 3:03 PM CHAIR TRIMMER Body Mass Index 31.76 04/07/2020 3:03 PM CHAIR TRIMMER documented in this encounter Progress Notes Porsche Gagnon PA-C - 04/07/2020 2:30 PM CST Chief complaint: Chief Complaint Patient presents with Abdominal Pain HPI [place] Alfaro is a 60 year old female coming in concerned about lower abdominal/pelvic pain x 5 months. Patient reports it started in November as a dull aching pain, patient denies any cramping. Patient denies any discharge, dysuria, hematuria, abnormal bleeding. Patient is postmenopausal x 20 years ago. Patient reports is sexually active. Patient denies any dyspareunia. 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 Patient states she had brain metastasis but that has cleared up. Patient reports last pap was >20 years ago. Patient denies hx of abnormal paps. Patient reports she saw GI specialist Dr. Olmedo/ Dr david in [place]. Patient reports had an endoscopy,CT scan, FIT test and everything was normal. Patient reports nothing makes the pain worse, nothing makes the pain better. Patient reports sometimes her pain is positional and when she moves it makes itworse. Patient reports she sees oncologist and gets regular check ups often. Histories OB History Para Term AB Living 2 2 2 SAB TAB Ectopic Multiple Live Births # Outcome Date GA Lbr Matt/2nd Weight Sex Delivery Anes PTL Lv 2 Term 1988 M 1 Term 1983 M Past Medical History: Diagnosis Date Cancer of brain brain cancer Lung cancer lung cancer, current Family History Problem Relation Age of Onset Breast Cancer Mother Heart Father Diabetes Father Family Status Relation Name Status Mo Alive Fa Past Surgical History: Procedure Laterality Date CHOLECYSTECTOMY 2006 VT EXCIS INFRATENT BRAIN TUMOR 2018 TUBAL LIGATION 1993 Social History Socioeconomic History Marital status: Spouse name: Not on file Number of children: Not on file Years of education: Not on file Highest education level: Not on file Occupational History Not on file Social Needs Financial resource strain: Not on file Food insecurity Worry: Not on file Inability: Not on file Transportation needs Medical: Not on file Non-medical: Not on file Tobacco Use Smoking status: Former Smoker Types: Cigarettes Quit date: 07/01/2003 Years since quittin.7 Smokeless tobacco: Never Used Substance and Sexual Activity Alcohol use: Not Currently Drug use: Not Currently Sexual activity: Yes Partners: Male Lifestyle Physical activity Days per week: Not on file Minutes per session: Not on file Stress: Not on file Relationships Social connections Talks on phone: Not on file Gets together: Not on file Attends buddhism service: Not on file Active member of club or organization: Not on file Attends meetings of clubs or organizations: Not on file Relationship status: Not on file Intimate partner violence Fear of current or ex partner: Not on file Emotionally abused: Not on file Physically abused: Not on file Forced sexual activity: Not on file Other Topics Concern Not on file Social History Narrative Patient feels safe at home, denies abuse. Lives with . Social History Substance and Sexual Activity Sexual Activity Yes Partners: Male Labs none Radiology none Allergies [place] is allergic to mycins [macrolide antibiotics]. Medications [place] has a current medication list which includes the following prescription(s): aspirin, dexamethasone, dicyclomine, ferrous sulfate, folic acid, fluticasone- salmeterol, ondansetron, pantoprazole, proair hfa, topiramate, and meclizine. Review of Systems Constitutional: Negative for appetite change, fatigue and fever. HENT: Negative for rhinorrhea and sore throat. Eyes: Negative for pain and itching. Respiratory: Negative for cough, chest tightness and shortness of breath. Breasts: Negative for discharge, mass and pain. Cardiovascular: Negative for chest pain, palpitations and leg swelling. Gastrointestinal: Negative for abdominal pain, constipation, diarrhea and nausea. Genitourinary: Positive for pelvic pain. Negative for bladder incontinence, dysuria, vaginal discharge, difficulty urinating and vaginal pain. Musculoskeletal: Negative for gait problem and myalgias. Skin: Negative for rash. Neurological: Negative for dizziness and headaches. Psychiatric/Behavioral: Negative for suicidal ideas. The patient is not nervous/anxious. Endocrine: Negative for hair loss. BP 104/62 (BP Location: Left arm, Patient Position: Sitting, BP CUFF SIZE: Adult Medium) | Pulse 71 | Temp 36.7 C (98 F) (Oral) | Resp 18 | Ht 5' 4" (1.626 m) | Wt 185 lb (83.9 kg) | BMI 31.76 kg/m Pregravid BMI: Could not be calculated Physical Exam Vitals reviewed. Constitutional: She is oriented to person, place, and time. She appears well- developed and well-nourished. Neck: No mass. No thyromegaly palpated. No neck adenopathy. Cardiovascular: Regular rate and rhythm. Pulmonary/Chest: Normal inspiratory effort. Abdominal: Abdomen is soft. No tenderness present. No hernia palpated or inspected. Neuro/Psychiatric: She has a normal mood and affect. She is oriented to person, place, and time. Skin: Skin normal. Lymphadenopathy: No neck adenopathy present. No axillary adenopathy present. No inguinal adenopathy present. Rectal: normal rectum External genitalia: Normal external genitalia appropriate for age. Urethral meatus: Normal urethral meatus Urethra: Normal urethra. Bladder: Normal bladder Vagina:Normal vagina. Abnormal estrogen effect. No abnormal vaginal discharge found. Cervix: Normal cervix. No lesion. No tenderness and no discharge present. Uterus: Uterus is normal size and non-tender. Normal uterus Adnexa: Right adnexa without tenderness. Left adnexa without tenderness. Normal left adnexa and normal right adnexa Anus/perineum: Normal perineum and normal anus. Assessment/Plan Pain pelvic (primary encounter diagnosis) Plan: US PELVIS COMPLETE WITH TRANSVAGINAL Adenocarcinoma of lung, stage 4, unspecified laterality Patient to follow-up with onc. Postmenopausal Visit for gynecologic examination Return to clinic in 2 week for FOLLOW-UP on pelvic pain Will request CT scan records from [place]. Moo RATLIFF. Discussed treatment options. Reviewed patient instructions and provided printed copy. This visit did not involve counseling and coordination that comprised more than 50% of the visit time. Porsche Gagnon PA-C 04/07/2020 3:40 PM R TRIMMER documented in this encounter Plan of Treatment Date Type Specialty Care Team Description 04/21/2020 Office Visit Obstetrics & Gynecology Porsche Gagnon PA-C [address] [place] [address] [phone] Health Maintenance Due Date Last Done Comments HEPATITIS C (HCV) SCREEN 1960 PNEUMOCOCCAL 0-64 YEARS COMBINED SERIES (1 of 3 - 1964 PCV13) DTaP,Tdap,and Td Vaccines (1 - Tdap) 1977 PAP SMEAR 1979 Breast Cancer Screening (MAMMOGRAM) 1998 COLON CANCER SCREENING ANNUAL FIT/FOBT 2008 COLON CANCER SCREENING FIT DNA EVERY 3 YEARS 2008 COLON CANCER SCREENING SIGMOIDOSCOPY EVERY 5 YEARS 2008 COLONOSCOPY 2008 Colorectal Cancer Screening 2008 Zoster Recombinant Vaccine (SHINGRIX) (1 of 2) 2008 INFLUENZA VACCINE (#1) 2019 Depression Screening 06/04/2020 06/05/2019 documented as of this encounter Results US PELVIS COMPLETE WITH TRANSVAGINAL (04/14/2020 2:47 PM CHAIR TRIMMER) Specimen Narrative Performed At This result has an attachment that is no t available. HISTORY: Pelvic pain. PACS/VR/DOSE TECHNIQUE: Both transabdominal and transvaginal pelvic ultrasound studies were completed by the technologist. FINDINGS: Uterus is of normal size for the patient's a ge, measures approximately 6.3 x 2.3 x 3.6 cm in size with few 2.5 mm or smaller size calcifications in the myometrium in the submucosal por tion of the body and fundus of the uterus. Endometrial echo complex is 4.3 mm. No free fluid in the cul-de-sac. Right ovary is 1.9 x 1.0 x 0.9 cm (0.98 ml) and left o vary is 1.5 x 0.8 x 0.9 cm (0.62 ml). Subcentimeter cyst noted in the righ t ovary and there is small calcification in the left ovary CONCLUSIONS: 1. Normal size uterus with small calcifications in the myometrium in the submucosal portion. 2. No endometrial hyperplasia. 3. No adnexal masses. Procedure Note [facility], Radiant Results Inft User - 2020 2:56 PM CHAIR TRIMMER HISTORY: Pelvic pain. TECHNIQUE: Both transabdominal and trans vaginal pelvic ultrasound studies were completed by the technologist. FINDINGS: Uterus is of normal size for t he patient's age, measures approximately 6.3 x 2.3 x 3.6 cm in size with few 2.5 mm or smaller size calcifications in the myometrium in the submucosal portion of the body and fundus of the uterus. Endometrial echo c omplex is 4.3 mm. No free fluid in the cul-de-sac. Right ovary is 1.9 x 1.0 x 0.9 cm (0.98 ml) and left ovary is 1.5 x 0.8 x 0.9 cm (0.62 ml). Subcentimeter cyst not ed in the right ovary and there is small calcification in the left ovary CONCLUSIONS: 1. Normal size uterus with small calcifi cations in the myometrium in the submucosal portion. 2. No endometrial hyperplasia. 3. No adnexal masses. Performing Organization Address City/State/Zipcode Phone Number PACS/VR/DOSE documented in this encounter Visit Diagnoses Diagnosis Pain pelvic - Primary Unspecified symptom associated with fema le genital organs Adenocarcinoma of lung, stage 4, unspeci fied laterality Postmenopausal Asymptomatic postmenopausal status (age- related) (natural) Visit for gynecologic examination Routine gynecological examination documented in this encounter Insurance Payer Benefit Plan / Subscriber ID Effective Dates Phone Addre ss Type Group [facility] ST[facility] [id number] 2020-Present Medicaid COMM PLAN - PLUS MANAGED MEDICAID [phone] [id number] (Work) documented as of this encounter
--- OUTSIDE RECORDS SUMMARY | 2020-04-23 19:24 | XMS REPORT | Summary of Care ---
:1960 Author Organization [facility] Address [address] [place] [address] Care Team Providers Name Role Phone Surekha Chiang Primary Care Provider Reason for Visit Reason Comments Medical Records endoscopy from Dr. Olmedo 05/21 Encounter Details Date Type Department Care Team Description 04/20/2020 Case Management [facility] Porsche Gagnon M edical Records [facility] (endoscopy from Dr. Montes De Oca [address] ) [facility], [facility] [address] [place] [phone] [place], [place] [phone] Allergies Active Allergy Reactions Severity Noted Date Comments Macrolide Antibiotics Unknown - See comments 8 documented as of this encounter (statuses as of 04/20/2020) Medications Medication Sig Dispensed Refills Start Date [...] as of this encounter (statuses as of 04/20/2020) Active Problems Problem Noted Date Obesity (BMI 30-39.9) 04/07/2020 documented as of this encounter (statuses as of 04/20/2020) Social History Tobacco Use Types Packs/Day Years Used Date Former Smoker Cigarettes Quit: 07/01/19 04 Smokeless Tobacco: Never Used Alcohol Use Drinks/Week oz/Week Comments Not Currently Sex Assigned at Date Recorded Not on file COVID-19 Exposure Response Date Recorded In the last month, have you been in contact with No / Unsure 04/14/2020 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 documented as of this encounter Last Filed Vital Signs Not on filedocumented in this encounter Progress Notes Porsche Gagnon PA-C - 04/20/2020 2:[address] Olmedo 05/21/2019 EGD with biopsy. -DX: esophageal stricture, hiatal hernia, esophageal erosions without bleeding, gastritis. documented in this encounter Plan of Treatment Date Type Specialty Care Team Description 04/21/2020 Office Visit Obstetrics & Gynecology Porsche Gagnon PA-C [address] [place] [address] [phone] Health Maintenance Due Date Last Done [...] 06/05/2019 documented as of this encounter Results Not on filedocumented in this encounter Insurance Payer Benefit Plan / Subscriber ID Effective Dates Phone Addre ss Type Group [facility] STAR [id number] 2020-Present Medicaid COMM PLAN - PLUS MANAGED MEDICAID documented as of this encounter
--- OUTSIDE RECORDS SUMMARY | 2020-04-23 19:24 | XMS REPORT | Summary of Care ---
:1960 Author Organization [facility] Address [address] [place] [address] Care Team Providers Name Role Phone Surekha Chiang Primary Care Provider Reason for Visit Reason Comments TEST RESULTS MDL Pap ASCUS / Suggestive p rogression to BV; AV neg; Mariann Neg ; Leukorrhea Neg Encounter Details Date Type Department Care Team Description 04/15/2020 Telephone [facility] Porsche Gagnon, TEST RESULTS ([facility] PA-C ASCUS / Suggestive [address] [facility] pro[facility] to BV; [address], [address] neg; Mariann Neg ; [place], [place] Gerardo 208 Leukorrhea Neg) [phone] [place], [place] [phone] Allergies Active Allergy Reactions Severity Noted Date [...] with No / Unsure 04/14/2020 2:07 PM ORACLE SECURITY CONSULTANT someone who was confirmed or suspected to have Coronavirus / COVID-19? documented as of this encounter Last Filed Vital Signs Not on filedocumented in this encounter Miscellaneous Notes Telephone Encounter - Porsche Gagnon PA-C - 04/20/2020 2:59 PM ORACLE SECURITY CONSULTANT+ASCUS with NEG HR HPV. Repeat pap in 3 years. Please discuss results and hygiene. LE SECURITY CONSULTANT Telephone Encounter - Luis Paul MA - 04/15/2020 10:08 AM CSTMDL PAP AND additional testing Pap Result: ASCUS / HR HPV NEGATIVE Bacterial Vaginosis Panel: Suggestive of increased risk for progression to BV Aerobic Vaginitis Panel: Negative Mariann Panel: Negative Leukorrhea Panel: Negative Placed on provider desk for signature and review and Rx as indicated and Pap f/u as indicated. Hard copy will be scanned into Programmr. Luis Paul MA 04/15/2020 10:12 AM documented in this encounter Plan of Treatment Date Type Specialty Care Team Description 04/21/2020 Office Visit Obstetrics & Gynecology Porsche Gagnon PA-C [address] [place] [phone] Health Maintenance Due Date Last Done [...] Effective Dates Phone Addre ss Type Group [facility] STAR [id number] 2020-Present Medicaid COMM PLAN - PLUS MANAGED MEDICAID documented as of this encounter
--- OUTSIDE RECORDS SUMMARY | 2020-04-23 19:24 | XMS REPORT | Summary of Care ---
:1960 Author Organization [facility] Address [address] [place] [id number] Care Team Providers Name Role Phone Surekha Chiang Primary Care Provider Reason for Referral Radiology Services (Routine) Status Reason Specialty Diagnoses / Referred By Referred To Procedures Contact Contact New Request Diagnostic Diagnoses Screening breast examination Lisandroaphan, Radiology Procedures BI SCREENING MAMMOGRAM BILATERAL QUIRINO Morrell [address] [place] [phone] Reason for Visit Reason Comments Follow-up Encounter Details Date Type Department Care Team Description 04/21/2020 Office Visit [facility] Women's Porsche Gagnon, Pain pelvic (Primary Dx); [facility] QUIRINO Screening breast examination [address] [place] [address], [address] [place] [phone] [place], [place] [phone] Allergies Active Allergy Reactions Severity Noted Date [...] been in contact with No / Unsure 04/21/2020 4:08 PM TRUCK SAFETY INSPECTOR someone who was confirmed or suspected to have Coronavirus / COVID-19? documented as of this encounter Last Filed Vital Signs Vital Sign Reading Time Taken Comments Blood Pressure 131/75 04/21/2020 4:24 PM TRUCK SAFETY INSPECTOR Pulse 69 04/21/2020 4:24 PM TRUCK SAFETY INSPECTOR Temperature 36.4 C (97.6 F) 04/21/2020 4:24 PM TRUCK SAFETY INSPECTOR Respiratory Rate 18 04/21/2020 4:24 PM TRUCK SAFETY INSPECTOR Oxygen Saturation - - Inhaled Oxygen Concentration - - Weight 83.5 kg (184 lb) 04/21/2020 4:24 PM TRUCK SAFETY INSPECTOR Height 162.6 cm (5' 4") 04/21/2020 4:24 PM TRUCK SAFETY INSPECTOR Body Mass Index 31.58 04/21/2020 4:24 PM TRUCK SAFETY INSPECTOR documented in this encounter Progress Notes Porsche Gagnon PA-C - 04/21/2020 4:00 PM CST Chief complaint: Chief Complaint Patient presents with Follow-up HPI [place]ia Alfaro is a 60 year old female coming in to follow up on pelvic pain. 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 Patient reports currently her pelvic pain has been fine and she denies any pain. She has no complaints and reports is doing well. Patient denies any abnormal/pelvic pain, discharge, dysuria, hematuria, abnormal bleeding. Patient had pelvic US done , MDL swab/pap smear done and is here to FOLLOW-UP on results. Histories OB History Para Term AB Living 2 2 2 SAB TAB Ectopic Multiple Live Births # Outcome Date GA Lbr Matt/2nd Weight Sex Delivery Anes PTL Lv 2 Term 1987 M 1 Term 1983 M Past Medical History: Diagnosis Date Cancer of brain brain cancer Lung cancer lung cancer, current Family History Problem Relation Age of Onset Breast Cancer Mother Heart Father Diabetes Father Family Status Relation Name Status Mo Alive Fa Past Surgical History: Procedure Laterality Date CHOLECYSTECTOMY 2006 [place] EXCIS INFRATENT BRAIN TUMOR 2018 TUBAL LIGATION [...] Types: Cigarettes Quit date: 07/01/2003 Years since quittin.8 Smokeless tobacco: Never Used Substance and Sexual Activity Alcohol use: Not Currently Drug use: Not Currently Sexual activity: Yes Partners: Male Lifestyle Physical activity Days per week: Not on file Minutes per session: Not on file Stress: Not on file Relationships Social connections Talks on phone: Not on file Gets together: Not on file Attends mandaen service: Not on file Active member of [...] Activity Sexual Activity Yes Partners: Male Labs MDL PAP AND additional testing Pap Result: ASCUS / HR HPV NEGATIVE Bacterial Vaginosis Panel: Suggestive of increased risk for progression to BV Aerobic Vaginitis Panel: Negative Mariann Panel: Negative Leukorrhea Panel: Negative REPEAT PAP in 3 years with COTESTING Radiology HISTORY: Pelvic pain. TECHNIQUE: Both transabdominal and transvaginal pelvic ultrasound studies were completed by the technologist. FINDINGS: Uterus is of normal size for the patient's age, measures approximately 6.3 x 2.3 [...] (0.62 ml). Subcentimeter cyst noted in the right ovary and there is small calcification in the left ovary CONCLUSIONS: 1. Normal size uterus with small calcifications in the myometrium in the submucosal portion. 2. No endometrial hyperplasia. 3. No adnexal masses. Allergies [place] is allergic to mycins [macrolide [...] nervous/anxious. Endocrine: Negative for hair loss. BP 131/75 (BP Location: Left arm, Patient Position: Sitting, BP CUFF SIZE: Adult Medium) | Pulse 69 | Temp 36.4 C (97.6 F) (Oral) | Resp 18 | Ht 5' 4" (1.626 m) | Wt 184 lb (83.5 kg) | BMI 31.58 kg/m Pregravid BMI: Could not be calculated Physical Exam Vitals reviewed. Constitutional: She is oriented to person, place, and time. Her body habitus is obese. Cardiovascular: Regular rate and rhythm. Pulmonary/Chest: Normal inspiratory effort. Abdominal: Abdomen is soft. No tenderness present. No hernia palpated or inspected. Neuro/Psychiatric: She has a normal mood and affect. She is oriented to person, place, and time. Skin: Skin normal. Assessment/Plan Pain pelvic (primary encounter diagnosis) Currently no pain/pain has resolved. Advised patient on a healthy diet and to also make sure to havenormal BMs regularly. Patient advised to FOLLOW-UP with GI. Will request records again from CT scan of abdomen and pelvis. Only received endoscopy from Dr. Olmedo last OV. Advised patient if sx change or worsen to rtc. Patient voices understanding. Advised patient any abnormal bleeding to also rtc. Screening breast examination Plan: BI SCREENING MAMMOGRAM BILATERAL Patient is up to date with colonoscopy with GI already. Patient advised to follow-up with oncologist and PCP as routine. Return to clinic prn WWE Discussed treatment options. Reviewed patient instructions and provided printed copy. This visit did not involve counseling and coordination that comprised more than 50% of the visit time. Porsche Gagnon PA-C 04/21/2020 5:13 PM K SAFETY INSPECTOR documented in this encounter Plan of Treatment Name Type Priority Associated Diagnoses Order S chedule BI SCREENING MAMMOGRAM IMAGING Routine Screening breast E xpected: 04/21/2020, BILATERAL examination Expires: 2021 Health Maintenance Due Date Last Done Comments [...] Results Not on filedocumented in this encounter Visit Diagnoses Diagnosis Pain pelvic - Primary Unspecified symptom associated with fema le genital organs Screening breast examination Other screening breast examination documented in this encounter Insurance Payer Benefit Plan / Subscriber ID Effective Dates Phone Addre ss Type Group [facility] [id number] 2020-Present Medicaid COMM PLAN - PLUS MANAGED MEDICAID [phone] [id number] (Work) documented as of this encounter
--- OUTSIDE RECORDS SUMMARY | 2020-04-23 19:25 | XMS REPORT | Summary of Care ---
:1960 Author Organization [facility] Address [address] [place] [id number] Care Team Providers Name Role Phone Surekha Chiang Primary Care Provider Reason for Referral Radiology Services (Routine) Status Reason Specialty Diagnoses / Referred By Referred To Procedures Contact Contact New Request Diagnostic Diagnoses Screening breast examination Lisandroaphan, Radiology Procedures BI SCREENING MAMMOGRAM BILATERAL QUIRINO Morrell [address] [place] [phone] Reason for Visit Reason Comments Follow-up Encounter Details Date Type Department Care Team Description 04/21/2020 Office Visit [facility] Women's Porsche Gagnon, Pain pelvic (Primary Dx); [facility] [place] [facility] QUIRINO Screening breast examination [address] [place] [address], [address] [place] [phone] [place], [place] [phone] Allergies Active Allergy Reactions Severity Noted Date [...] with No / Unsure 04/21/2020 4:08 PM METAL SOLDERER someone who was confirmed or suspected to have Coronavirus / COVID-19? documented as of this encounter Last Filed Vital Signs Vital Sign Reading Time Taken Comments Blood Pressure 131/75 04/21/2020 4:24 PM METAL SOLDERER Pulse 69 04/21/2020 4:24 PM METAL SOLDERER Temperature 36.4 C (97.6 F) 04/21/2020 4:24 PM METAL SOLDERER Respiratory Rate 18 04/21/2020 4:24 PM METAL SOLDERER Oxygen Saturation - - Inhaled Oxygen Concentration - - Weight 83.5 kg (184 lb) 04/21/2020 4:24 PM METAL SOLDERER Height 162.6 cm (5' 4") 04/21/2020 4:24 PM METAL SOLDERER Body Mass Index 31.58 04/21/2020 4:24 PM METAL SOLDERER documented in this encounter Progress Notes Porsche [...] Surgical History: Procedure Laterality Date CHOLECYSTECTOMY 2006 [place] EXCIS INFRATENT BRAIN TUMOR 2018 TUBAL LIGATION [...] file Gets together: Not on file Attends scientology service: Not on file Active member of [...] time. Porsche Gagnon PA-C 04/21/2020 5:13 PM L SOLDERER documented in this encounter Plan of Treatment [...] Effective Dates Phone Addre ss Type Group [facility] [id number] 2020-Present Medicaid COMM PLAN - PLUS MANAGED MEDICAID [phone] [id number] (Work) documented as of this encounter
[2020-04-23] MEDS ORDERED: ONDANSETRON 4 MG/2 ML VIAL ONE (20:09)
[2020-04-23] MEDS ORDERED: FAMOTIDINE 20 MG/2 ML VIAL IV ONE (20:09)
[2020-04-23] MEDS ORDERED: MORPHINE 4 MG/ML SYR ONE ×2 (20:09→22:27)
[2020-04-23] MEDS ORDERED: NA CHLORIDE 0.9% 1,000 ML ONE (20:09)
[2020-04-23 20:11] LABS: Absolute Lymphocytes (CBC) 2.1 K/uL (0.7-4.9); Basophils % 0.8 % (0-1.3); Hematocrit 37.6 % (36.0-45.0); Lymphocytes % 25.4 % (15.3-44.8); MPV 8.1 fL (7.6-11.3); RBC Red Blood Cell Count 4.02 M/uL (3.86-4.86)
[2020-04-23 20:26] LABS: ALT/SGPT 54 U/L (12-78); AST/SGOT 33 U/L (15-37); Albumin 3.2 g/dL (3.4-5.0); Alkaline Phosphatase 112 U/L (45-117); BUN Blood Urea Nitrogen 12 mg/dL (7-18); Bicarbonate 25 mmol/L (21-32); Bilirubin Direct 0.1 mg/dL (0-0.2); Bilirubin Total 0.4 mg/dL (0.2-1.0); Glucose Level 96 mg/dL (74-106); Lipase 68 U/L (73-393); Potassium 3.7 mmol/L (3.5-5.1); Protein, Total 7.5 g/dL (6.4-8.2); Sodium Level 140 mmol/L (136-145)
--- NOTE | 2020-04-23 21:06 | RAD REPORT ---
EXAM DESCRIPTION: CT - Abdomen Pelvis W Contrast - 04/23/2020 8:46 pm CLINICAL HISTORY: Abdominal pain COMPARISON: December 2019 TECHNIQUE: Computed axial tomography of the abdomen pelvis was obtained. 100 cc Isovue-300 was admin istered intravenously. Oral contrast was not requested which limits evaluation of bowel. All CT scans are performed using dose optimization technique as appropriate and may include automated exposure control or mA/KV adjustment according to patient size. FINDINGS: Fatty liver. Cholecystectomy. Small duodenal diverticulum Spleen, pancreas, adrenal and left kidney appear unremarkable. Tiny nonobstructing right renal calcul us There is no evidence of diverticulitis. Normal liver IMPRESSION: No acute abnormality is displayed.
[2020-04-23 21:16] LABS: Urine Blood 1+ (NEG); Urine Glucose NEGATIVE (NEG); Urine Protein NEGATIVE (NEG)
--- NOTE | 2020-04-23 23:17 | ER ---
Nurse's Notes [facility] Name: Albania Alfaro Age: 60 yrs Sex: Female : 1960 Arrival Date: 04/23/2020 Time: 19:21 Bed 8 Private MD: Crista Chiang Diagnosis: Generalized abdominal pain;Dental caries Presentation: 04/23 19:28 Chief complaint: Patient states: Lower abdominal pain, suprapubic pain x 2 days. Denies ca1 urinary symptoms. Reports Nausea. Denies V/D. Denies fever. Also a tooth broke last night, that is scheduled for a root canal and now my upper gums are inflamed. Coronavirus screen: Client denies travel out of the [place] in the last 14 days. nausea, Client presents with at least one sign or symptom that may indicate coronavirus-19. Standard/surgical mask placed on the client. Provider contacted for isolation considerations. Ebola Screen: Patient negative for fever greater than or equal to 101.5 degrees Fahrenheit, and additional compatible Ebola Virus Disease symptoms Patient denies exposure to infectious person. Patient denies travel to an Ebola-affected area in the 21 days before illness onset. No symptoms or risks identified at this time. Initial Sepsis Screen: Does the patient meet any 2 criteria? No. Patient's initial sepsis screen is negative. Does the patient have a suspected source of infection? No. Patient's initial sepsis screen is negative. Risk Assessment: Do you want to hurt yourself or someone else? Patient reports no desire to harm self or others. Onset of symptoms was April 23, 2020. 19:28 Method Of Arrival: Ambulatory ca1 19:28 Acuity: AILYN 3 ca1 Historical: - Allergies: 19:32 Erythromycin; ca1 - PMHx: 19:32 Cancer; Diverticulitis; Lung Cancer; Vertigo; ca1 - PSHx: 19:32 Tubal ligation; Cholecystectomy; ca1 - Immunization history:: Pneumococcal vaccine is not up to date, Flu vaccine is up to date. - Social history:: Smoking status: Patient/guardian denies using tobacco, the patient reports quitting approximately 16 years ago. Screenin:01 Abuse screen: Denies threats or abuse. Nutritional screening: No deficits noted. ea Tuberculosis screening: No symptoms or risk factors identified. Fall Risk IV access (20 points). Assessment: 19:59 General: Appears uncomfortable, Behavior is appropriate for age. Pain: Complains of ea pain in right lower quadrant and left lower quadrant. Neuro: Level of Consciousness is awake, alert, obeys commands, Oriented to person, place, time. Cardiovascular: Patient's skin is warm and dry. Respiratory: Airway is patent Respiratory effort is even, unlabored, Respiratory pattern is regular, symmetrical. GI: Abdomen is non-distended. Derm: Skin is pink, warm \T\ dry. 21:02 Reassessment: Patient and/or family updated on plan of care and expected duration. Pain ea level reassessed. Patient is alert, oriented x 3, equal unlabored respirations, skin warm/dry/pink. Awaiting on CT results. 23:27 Reassessment: Patient and/or family updated on plan of care and expected duration. Pain ea level reassessed. Patient is alert, oriented x 3, equal unlabored respirations, skin warm/dry/pink. Discharge instruction given to patient, verbalized the understanding of instruction. Pt left ED ambulatory tolerating well. Vital Signs: 19:28 BP 111 / 64; Pulse 87; Resp 16 S; Temp 98.3(TE); Pulse Ox 99% on R/A; Weight 82.55 kg ca1 (R); Height 5 ft. 4 in. (162.56 cm) (R); Pain 7/10; 21:02 BP 160 / 68; Pulse 80; Resp 18; Pulse Ox 98% on R/A; ea 23:15 BP 106 / 62; Pulse 70; Resp 18; Temp 98.2; Pulse Ox 98% ; ea 19:28 Body Mass Index 31.24 (82.55 kg, 162.56 cm) ca1 ED Course: 19:21 Patient arrived in ED. am2 19:21 Crista Chiang FNP-C is Private Physician. am2 19:31 Triage completed. ca1 19:32 Arm band placed on right wrist. ca1 19:33 Jose Webster RN is Primary Nurse. rv 19:36 Yogesh Martin MD is Attending Physician. mh7 20:00 Inserted saline lock: 22 gauge in right antecubital area, using aseptic technique. ea Blood collected. 20:01 Patient has correct armband on for positive identification. Bed in low position. Call ea light in reach. Side rails up X2. 20:47 CT Abd/Pelvis - IV Contrast Only In Process Unspecified. EDMD 23:16 Yadiel Howe DDS is Referral Physician. [facility] 23:26 No provider procedures requiring assistance completed. IV discontinued, intact, ea bleeding controlled, No redness/swelling at site. Pressure dressing applied. Administered Medications: 19:58 Drug: Zofran (Ondansetron) 4 mg Route: IVP; Site: right antecubital; ea 21:03 Follow up: Response: No adverse reaction ea 20:01 Drug: morphine 4 mg {Note: rass 1.} Route: IVP; Site: right antecubital; ea 21:03 Follow up: Response: No adverse reaction; Pain is decreased ea 20:02 Drug: NS 0.9% 1000 ml Route: IV; Rate: 1000 ml; Site: right antecubital; ea 20:02 Drug: Pepcid 20 mg Route: IVP; Site: right antecubital; ea 21:03 Follow up: Response: No adverse reaction ea 22:19 Drug: morphine 4 mg Route: IVP; Site: right antecubital; ea 23:15 Follow up: Response: No adverse reaction ea Outcome: 23:17 Discharge ordered by . [facility] 23:26 Discharged to home ambulatory, with family. 23:26 Condition: stable 23:26 Discharge instructions given to patient, Instructed on discharge instructions, follow up and referral plans. medication usage, Demonstrated understanding of instructions, follow-up care, medications, Prescriptions given X 2. 23:28 Patient left the ED. ea Signatures: Dispatcher [employer] EDMD Leta Das am2 Saira Alves RN RN ea Vicente, Ronaldo RN Krys Almanzar RN RN ca1 Holmes, Maurice, MD MD [facility]
--- NOTE | 2020-04-23 23:18 | EDPHYS ---
Physician Documentation [facility] Name: Albania Alfaro Age: 60 yrs Sex: Female : 1960 Arrival Date: 04/23/2020 Time: 19:21 Bed 8 Private MD: Crista Chiang ED Physician Yogesh Martin HPI: 04/23 20:28 This 60 yrs old Female presents to ER via Ambulatory with complaints of mh7 Abdominal Pain, Toothache. 20:29 The patient presents with abdominal pain in the lower abdomen. Onset: The mh7 symptoms/episode began/occurred 2 day(s) ago. The symptoms do not radiate. Associated signs and symptoms: Pertinent negatives: nausea, vomiting, and diarrhea, anorexia, blood in stools, chest pain, constipation, diarrhea, dysuria, fever, headache, hematuria, nausea, palpitations, shortness of breath, vaginal discharge, vomiting, vomiting blood. The symptoms are described as intermittent, vague, waxing/waning. 20:29 Modifying factors: The symptoms are alleviated by nothing, the symptoms are aggravated mh7 by touching the area. Severity of pain: At its worst the pain was moderate yesterday, in the emergency department the pain is unchanged. Also complains of left upper tooth pain which may have cracked while eating yesterday.. Historical: - Allergies: 19:32 Erythromycin; ca1 - PMHx: 19:32 Cancer; Diverticulitis; Lung Cancer; Vertigo; ca1 - PSHx: 19:32 Tubal ligation; Cholecystectomy; ca1 - Immunization history:: Pneumococcal vaccine is not up to date, Flu vaccine is up to date. - Social history:: Smoking status: Patient/guardian denies using tobacco, the patient reports quitting approximately 16 years ago. ROS: 20:29 Constitutional: Negative for fever, chills, and weight loss, Eyes: Negative for injury, mh7 pain, redness, and discharge, Neck: Negative for injury, pain, and swelling, Cardiovascular: Negative for chest pain, palpitations, and edema, Respiratory: Negative for shortness of breath, cough, wheezing, and pleuritic chest pain, Back: Negative for injury and pain, : Negative for injury, bleeding, discharge, and swelling, MS/Extremity: Negative for injury and deformity, Skin: Negative for injury, rash, and discoloration, Neuro: Negative for headache, weakness, numbness, tingling, and seizure, Psych: Negative for depression, anxiety, suicide ideation, homicidal ideation, and hallucinations, Allergy/Immunology: Negative for hives, rash, and allergies, Endocrine: Negative for neck swelling, polydipsia, polyuria, polyphagia, and marked weight changes, Hematologic/Lymphatic: Negative for swollen nodes, abnormal bleeding, and unusual bruising. Exam: 20:29 Constitutional: This is a well developed, well nourished patient who is awake, alert, mh7 and in no acute distress. Head/Face: Normocephalic, atraumatic. Eyes: Pupils equal round and reactive to light, extra-ocular motions intact. Lids and lashes normal. Conjunctiva and sclera are non-icteric and not injected. Cornea within normal limits. Periorbital areas with no swelling, redness, or edema. 20:29 Neck: Trachea midline, no thyromegaly or masses palpated, and no cervical lymphadenopathy. Supple, full range of motion without nuchal rigidity, or vertebral point tenderness. No Meningismus. Chest/axilla: Normal chest wall appearance and motion. Nontender with no deformity. No lesions are appreciated. Cardiovascular: Regular rate and rhythm with a normal S1 and S2. No gallops, murmurs, or rubs. Normal PMI, no JVD. No pulse deficits. Respiratory: Lungs have equal breath sounds bilaterally, clear to auscultation and percussion. No rales, rhonchi or wheezes noted. No increased work of breathing, no retractions or nasal flaring. 20:29 Back: No spinal tenderness. No costovertebral tenderness. Full range of motion. Skin: Warm, dry with normal turgor. Normal color with no rashes, no lesions, and no evidence of cellulitis. MS/ Extremity: Pulses equal, no cyanosis. Neurovascular intact. Full, normal range of motion. Neuro: Awake and alert, GCS 15, oriented to person, place, time, and situation. Cranial nerves II-XII grossly intact. Motor strength 5/5 in all extremities. Sensory grossly intact. Cerebellar exam normal. Normal gait. Psych: Awake, alert, with orientation to person, place and time. Behavior, mood, and affect are within normal limits. 20:29 ENT: Mouth: is normal, Posterior pharynx: is normal, airway is patent, Dental exam: abscess, is not appreciated, cellulitis, is not appreciated, dental caries, that is mild, specifically in the upper left first molar (#14), fractured teeth are noted, not appreciated, gum swelling, not appreciated, malocclusion, is not appreciated, pain, that is mild, specifically in the upper left first molar (#14), Voice: is normal, Breath odor: is normal. 20:29 Abdomen/GI: Inspection: obese Bowel sounds: normal, in all quadrants, Palpation: moderate abdominal tenderness, in the suprapubic area, left upper quadrant, right lower quadrant and left lower quadrant, Rectal exam: the exam is deferred, because of patient request, Indicators: McBurney's point is not tender, Arriaza's sign is negative, Rovsing's sign is negative, Obturator sign is negative, Psoas sign is negative, Liver: no appreciated palpable abnormalities, Hernia: not appreciated. Vital Signs: 19:28 BP 111 / 64; Pulse 87; Resp 16 S; Temp 98.3(TE); Pulse Ox 99% on R/A; Weight 82.55 kg ca1 (R); Height 5 ft. 4 in. (162.56 cm) (R); Pain 7/10; 21:02 BP 160 / 68; Pulse 80; Resp 18; Pulse Ox 98% on R/A; ea 23:15 BP 106 / 62; Pulse 70; Resp 18; Temp 98.2; Pulse Ox 98% ; ea 19:28 Body Mass Index 31.24 (82.55 kg, 162.56 cm) ca1 MDM: 23:15 Differential diagnosis: bowel obstruction, diverticulitis, gastritis, gastroesophageal mh7 reflux disease, non-specific abd pain, pancreatitis, Peptic Ulcer Disease, urinary tract infection. Data reviewed: vital signs, nurses notes, lab test result(s), CBC, Flu: urinalysis, radiologic studies, CT scan. Data interpreted: Pulse oximetry: on room air is 98 %. Interpretation: normal. Counseling: I had a detailed discussion with the patient and/or guardian regarding: the historical points, exam findings, and any diagnostic results supporting the discharge/admit diagnosis, the presence of at least one elevated blood pressure reading (>120/80) during this emergency department visit, lab results, radiology results, the need for outpatient follow up, to return to the emergency department if symptoms worsen or persist or if there are any questions or concerns that arise at home. Response to treatment: the patient's symptoms have resolved after treatment, the patient's blood pressure is in an acceptable range, mental status has returned to baseline, the patient no longer shows bradycardia, the patient is not short of breath, the patient is not tachycardic, the patient's pain is gone, the patient's temperature has normalized. 23:17 Patient medically screened. [facility] 04/23 19:50 Order name: Basic Metabolic Panel [facility] 04/23 19:50 Order name: CBC with Diff; Complete Time: 20:44 [facility] 04/23 19:50 Order name: Hepatic Function; Complete Time: 20:44 [facility] 04/23 19:50 Order name: Lipase; Complete Time: 20:44 [facility] 04/23 19:51 Order name: Basic Metabolic Panel; Complete Time: 20:44 [facility] 04/23 21:04 Order name: Urine Dipstick--Ancillary (enter results); Complete Time: 21:53 3 04/23 19:50 Order name: IV Saline Lock; Complete Time: 20:03 [facility] 04/23 19:50 Order name: Labs collected and sent; Complete Time: 20:03 [facility] 04/23 19:50 Order name: CT Abd/Pelvis - IV Contrast Only; Complete Time: 21:53 [facility] 04/23 19:50 Order name: EKG - Nurse/Tech; Complete Time: 20:03 7 Administered Medications: 19:58 Drug: Zofran (Ondansetron) 4 mg Route: IVP; Site: right antecubital; ea 21:03 Follow up: Response: No adverse reaction ea 20:01 Drug: morphine 4 mg {Note: rass 1.} Route: IVP; Site: right antecubital; ea 21:03 Follow up: Response: No adverse reaction; Pain is decreased ea 20:02 Drug: NS 0.9% 1000 ml Route: IV; Rate: 1000 ml; Site: right antecubital; ea 20:02 Drug: Pepcid 20 mg Route: IVP; Site: right antecubital; ea 21:03 Follow up: Response: No adverse reaction ea 22:19 Drug: morphine 4 mg Route: IVP; Site: right antecubital; ea 23:15 Follow up: Response: No adverse reaction ea Disposition: 04/23/20 23:17 Discharged to Home. Impression: Generalized abdominal pain, Dental caries. - Condition is Stable. - Discharge Instructions: Abdominal Pain, Adult, [id number], Dental Pain, [id number], Dental Caries, [id number]. - Prescriptions for Zofran ODT 4 mg Oral tablet,disintegrating - place 1 tablet by TRANSLINGUAL route every 8 hours As needed; 10 tablet. Bentyl 20 mg Oral Tablet - take 1 tablet by ORAL route every 6 hours As needed; 20 tablet. - Medication Reconciliation Form, Thank You Letter, Antibiotic Education, Prescription Opioid Use form. - Follow up: Private Physician; When: 1 - 2 days; Reason: If symptoms return, Worsening of condition, Recheck today's complaints, Continuance of care, Re-evaluation by your physician. Follow up: Yadiel Howe DDS; When: 1 - 2 days; Reason: Worsening of condition, Recheck today's complaints. - Problem is an ongoing problem. - Symptoms have improved. Signatures: Dispatcher [employer] EDMS Saira Alves RN RN ea Acob, Cheryl, RN RN ca1 Holmes, Maurice, MD MD mh7 Corrections: (The following items were deleted from the chart) 23:28 23:17 04/23/2020 23:17 Discharged to Home. Impression: Generalized abdominal pain; ea Dental caries. Condition is Stable. Forms are Medication Reconciliation Form, Thank You Letter, Antibiotic Education, Prescription Opioid Use. Follow up: Private Physician; When: 1 - 2 days; Reason: If symptoms return, Worsening of condition, Recheck today's complaints, Continuance of care, Re-evaluation by your physician. Follow up: Yadiel Howe; When: 1 - 2 days; Reason: Worsening of condition, Recheck today's complaints. Problem is an ongoing problem. Symptoms have improved. mh7
[2020-04-23 23:34] VITALS: O2SAT 98
[2020-04-23 23:36] VITALS: BP 106/62; TEMP 98.2
== END 2020-04-23 23:28 | disposition home or self-care (01) ==
LOC: ER 19:19
DX: K02.9 Dental caries, unspecified (principal); Z85.118 Personal history of other malignant neoplasm of bronchus and lung; Z88.3 Allergy status to other anti-infective agents
CPT/HCPCS: 93005; 85025; 80048; 36415; 80076; 81003; 83690; 74177; 96375; 96374; 99284; Q9967; J7030; J2405

== ENCOUNTER 2020-08-27 13:05 | Emergency (ER) | payer OTHER ==
--- OUTSIDE RECORDS SUMMARY | 2020-08-27 13:11 | XMS REPORT | Continuity of Care Document ---
:1960 Author Organization [facility] t Address [address] [place] [address] [address]. [address] [place] [address] Care Team Providers Name Role Phone Surekha Chiang Primary Care Physician Doctor Unassigned, Name Attending Clinician Unavailable Chelsi WIN Attending Clinician CORONA MÁRQUEZ Attending Clinician Unavailable CORONA MÁRQUEZ Admitting Clinician Unavailable Payers Payer Name Policy Type Policy Effective Date Expiration Date Sour ce Number [facility] [id number] 2020 [facility] ity of COMM PLAN - 00:00:00 [place] [facility] MANAGED Branch [place]ICAIDUHC [place] STAR HEMKwovke03529/2020-PresentMedic aid Problems Condition Condition Condition Status Onset Resolution Last Treating Co mments Source Name Details Category Date Date Treatment Clinician Date Obesity Obesity Disease Active 2020- Univers (BMI (BMI 1-07 ity of 30-39.9) 30-39.9) 00:00: [place] [address] Medical Branch Cerebellar Cerebellar Disease Active 2017-[address] [facility] mass 1-29 [facility] 00:[facility]: [place] [address] Center Mass of Mass of Disease Active 2017-[address] [facility] right lung right lung 04-29 Gwen kes - 00:00: Medical 00 [place] Hydrocepha Hydrocepha Disease Active 2017-[address] mikie mikie 04-29 [facility] - 00:[facility]: Medical 00 [place] Bandemia Bandemia Disease Active 2017-04 [facility] - 00:[facility]: Medical 00 [place] Allergies, Adverse Reactions, Alerts Allergy Allergy Status Severity Reaction(s) Onset Inactive Treating Comm ents Source Name Type Date Date Clinician Erythrom Propensi Active 2017-[address] ycin ty to 04-29 and [facility] - adverse 00:00: fever. Medical reaction 00 [place] s Macrolid Propensi Active Unknown - 2017-04 Uni vers e ty to See comments 04-24 ity of Antibiot adverse 00:00: [place] ics reaction 00 [facility] Branch Erythrom Adverse Active Info Not [facility] Reaction Available [facility] Family History Family Member Diagnosis Comments Start Date Stop Date Source Natural father Coronary artery disease [facility] Natural father Diabetes [facility] Natural father Hypertension [facility] Natural mother Breast cancer [facility] Social History Social Habit Start Date Stop Date Quantity Comments Source Sex Assigned At [facility] Alcohol intake 2020-04-07 2020-04-07 Ex-drinker University of 00:00:00 00:00:00 (finding) [facility] Tobacco use and 2018-03-27 2018-03-27 Never used [facility] - exposure 00:00:00 00:00:00 Medical Center History of 2003-07-01 Cigarette Smoker Universi ty of tobacco use 00:00:00 [facility] Smoking Status Start Date Stop Date Source Former smoker 2018-03-27 00:00:00 2018-03-27 00:00:00 [facility] Medications Ordered Filled Start Stop Current Ordering Indication Dosage Frequency Signature Comments Components Source Medication Medication Date Date Medication? Clinician (SIG) Name Name Fluticasone Yes 1{puff} Take 1 U nivers -Salmeterol 04-07 Puff by ity o f 500-50 21:09: mouth. [place] mcg/dose 30 Medical inhalation Branch disk ferrous 2021-0 Yes Take by Univer s sulfate 1-07 mouth. ity of (IRON ORAL) 21:09: [place] 30 Medical Branch aspirin 325 Yes 325mg Take 325 U nivers mg tablet 1-07 mg by ity of 21:09: mouth [place] 30 daily. Medical Branch ondansetron Yes 4mg Take 4 mg U nivers (ZOFRAN) 4 1-07 by mouth ity o f mg tablet 21:07: every 8 [place] 36 (eight) Medical hours as Branch needed. foLIC acid 2019-04 Yes TAKE ONE Uni vers 1 mg tablet 2-09 (1) ity of 00:00: TABLET(S) [place] 00 BY MOUTH Medical ONCE A DAY Branch START 5 DAYS BEFORE CHEMO AND FINISH 21 DAYS AFTER CHEMO. dexAMETHaso 2019-04 Yes TAKE ONE Un [place] 4 mg 1-03 (1) ity of tablet 00:00: TABLET(S) [place] 00 BY MOUTH Medical TWICE A Branch DAY FOR 3 DAYS (START THE DAY BEFORE EACH CHEMO TREATMENT) . dicyclomine 2019-04 Yes TAKE ONE [place] 10 mg 0-30 (1) ity of capsule 00:00: [place]) [place] 00 BY MOUTH Medical EVERY Branch EIGHT HOURS NEEDED. topiramate Yes TAKE ONE Uni vers 50 mg 2-27 (1) ity of tablet 00:00: TABLET(S) [place] 00 BY MOUTH Medical ONCE A Branch DAY. pantoprazol Yes TAKE ONE Un [place] 40 mg EC 2-20 (1) ity of tablet 00:00: TABLET(S) [place] 00 BY MOUTH Medical ONCE A Branch DAY. PROAIR HFA Yes INHALE ONE U nivers 90 1-07 (1) TO TWO ity of mcg/actuati 00:00: (2) [place] on inhaler 00 PUFF(S) BY Med ical MOUTH Branch EVERY FOUR TO SIX HOURS. meclizine 2017-04 Yes 25mg Take 1 Univer s 25 mg 1-24 tablet by ity of tablet 00:00: mouth [place] 00 every 6 Medical (six) Branch hours. Topiramate Topiramate Yes Crista 1 tablet [facility] Immunizations Ordered Filled Immunization Date Status Comments [facility] Immunization Name Name TDAP > 7 TDAP > 7 2019-10-[address] [facility] - Years-Adacel Years-Adacel 00:00:00 [facility] Procedures Procedure Date / Time Performed Performing Clinician [facility] e REFERRAL- 2020-08-05 05:01:00 Doctor Unassigned, No [facility] REQUEST/RESPONSE Name Medical Branch Plan of Care Planned Activity Planned Date Details Comments Source Future Scheduled 2023-04-07 Screening for [facility] Test 00:00:00 malignant neoplasm of Medica l Branch cervix (procedure) [code = 587779489] Future Scheduled 2020-11-[address] Test 00:00:00 (Season Ended) [code = Medic al Branch INFLUENZA VACCINE (Season Ended)] Future Scheduled 2020-11-[address] [facility] - Test 00:00:00 (Season Ended) [code = Medic al Center INFLUENZA VACCINE (Season Ended)] Future Scheduled 2020-04-[address]:00 (12+) [code = [facility] DEPRESSION SCREENING (12+)] Future Scheduled 2008 Screening for occult [facility] Test 00:00:00 blood in feces Medical [facility] h (procedure) [code = 518303944] Future Scheduled 2008 Stool DNA-based [facility] Test 00:00:00 colorectal cancer Medical Br anch screening (procedure) [code = 664334120450948] Future Scheduled 2008 Flexible fiberoptic [facility] Test 00:00:00 sigmoidoscopy Medical Branch (procedure) [code = 02260055] Future Scheduled 2008 Screening for [facility] Test 00:00:00 malignant neoplasm of Medica l Branch colon (procedure) [code = 319127531] Future Scheduled 2008 Screening for [facility] Test 00:00:00 malignant neoplasm of Medica l Branch colon (procedure) [code = 973170584] Future Scheduled [address] [facility] Test 00:00:00 Vaccine (SHINGRIX) (1 Medica l Branch of 2) [code = Zoster Recombinant Vaccine (SHINGRIX) (1 of 2)] Future Scheduled 2008 SHINGLES VACCINES ([address] [facility] - Test 00:00:00 of 2) [code = SHINGLES Medic al Center VACCINES (1 of 2)] Future Scheduled [address] - Test 00:00:00 (procedure) [code = Medical Center 26493549] Future Scheduled 1998 Screening for [facility] [place] Test 00:00:00 malignant neoplasm of Medica l Branch breast (procedure) [code = 669822750] Future Scheduled [address] [facility] - Test 00:00:00 [facility] cervix [facility]procedure) [code = 276591700] Future Scheduled 1977 DTaP,Tdap,and Td [facility] [place] Test 00:00:00 Vaccines (1 - Tdap) Medical Branch [code = DTaP,Tdap,and Td Vaccines (1 - Tdap)] Future Scheduled 1977 DTAP/TDAP/TD VACCINES [facility] - Test 00:00:00 (1 - Tdap) [code = Medical C enter DTAP/TDAP/TD VACCINES (1 - Tdap)] Future Scheduled 1976 HEPATITIS C [facility]CRE[facility]ING [facility] - Test 00:00:00 [code = HEPATITIS C [facility] SCREENING] Future Scheduled 1976 Hepatitis C screening [facility] [place] Test 00:00:00 (procedure) [code = Medical Branch 403030640] Future Scheduled 1974 SARS-CoV-2 (COVID-19) [facility] [place] Test 00:00:00 Vaccine (1) [code = Medical Branch SARS-CoV-2 (COVID-19) Vaccine (1)] Future Scheduled 1970 Depression screening [facility] [place] Test 00:00:00 (procedure) [code = Medical Branch 313800766] Future Scheduled [address] [facility] - Test 00:00:00 0-64 YRS (1 of 1 - Medical C enter PPSV23) [code = PNEUMOCOCCAL VACCINE 0-64 YRS (1 of 1 - PPSV23)] Future Scheduled 1964 PNEUMOCOCCAL 0-64 [facility] [place] Test 00:00:00 YEARS COMBINED SERIES Medica l Branch (1 of 3 - PCV13) [code = PNEUMOCOCCAL 0-64 YEARS COMBINED SERIES (1 of 3 - PCV13)] Future Scheduled [address] [facility] - Test 00:00:00 malignant neoplasm of [facility] breast (procedure) [code = 601244482] Future Scheduled [address] [facility] - Test 00:00:00 malignant neoplasm of [facility] colon (procedure) [code = 249182160] Encounters Start End Encounter Admission Attending Care Care Encounter Source Date/Time Date/Time Type Type Clinicians Facility Department ID 2020-08-05 2020-08-05 Orders Doctor ERASMO [id number] 00:00:00 00:00:00 Only Unassigned, [place]UB[id number] [place] [id number] 2020-08-02 2020-08-02 Outpatient [facility] [id number] [facility] 2020-07-06 2020-07-06 Outpatient [facility] [id number] [facility] 2020-07-04 2020-07-04 Outpatient [facility]LML[facility] [id number] [facility] 2020-06-22 2020-06-22 Outpatient STLMLC [facility] [id number] [facility] 2020-06-16 2020-06-16 Outpatient [facility] [id number] [facility] 2020-05-23 2020-05-23 Outpatient ST[facility]LMLC [id number] [facility] 2020-04-25 2020-04-25 Orders Doctor ERASMO [id number] 00:00:00 00:00:00 Only Unassigned, NUBIA [id number] 2020-04-21 2020-04-21 Office Chelsi [facility] [id number] 16:09:57 17:15:17 Visit Porsche Mcclure [id number] [place] [id number] Kimani [id number] [facility] 134 [facility] 2020-04-13 2020-04-13 Outpatient [facility] [id number] [facility] 2020-03-03 2020-03-03 Outpatient [facility] [id number] [facility] 2020-03-02 2020-03-02 Outpatient [facility] [id number] [facility] 2020-03-01 2020-03-01 Outpatient [facility] [id number] [facility] 2020-01-20 2020-01-20 Outpatient [facility] [id number] [facility] 2020-01-14 2020-01-14 Outpatient [facility] [id number] [facility] 2020-01-12 2020-01-12 Outpatient [facility] [id number] [facility] 2019-12-18 2019-12-18 [facility] [id number] 18:18:00 18:18:00 [facility] Family Medicine l Medicine Outpati ent Clinics 2019-12-11 2019-12-11 Outpatient [facility] [id number] 08:20:00 08:20:[facility] l Group Outpati ent Clinics 2019-12-03 2019-12-03 Outpatient [facility]. [id number] 10:27:00 10:27:00 . [facility] l Group Outpati ent Clinics 2019-11-30 2019-11-30 [facility] [id number] 09:40:00 09:40:00 [facility] Medicine l Medicine Outpati ent Clinics 2019-10-21 2019-10-21 [facility] [id number] 14:40:00 14:40:00 [facility] Medicine l Medicine Outpati ent Clinics 2019-08-25 2019-08-25 [facility] [id number] 10:40:00 10:40:00 [facility] Medicine l Medicine Outpati ent Clinics 2019-06-16 2019-06-16 [facility] [id number] 18:08:00 18:08:00 [facility] Medicine l Medicine Outpati ent Clinics 2019-05-26 2019-05-26 [facility] [id number] 13:00:00 13:00:00 [facility] Medicine Medicine Outpati ent Clinics 2019-05-11 2019-05-11 [facility] [id number] 16:17:00 16:17:00 [facility] Medicine l Medicine Outpati ent Clinics 2019-04-30 2019-04-30 [facility] [id number] 11:00:00 11:00:00 [facility] Medicine l Medicine Outpati ent Clinics 2019-01-27 2019-01-27 [facility] [id number] 08:00:00 08:00:00 [facility] Medicine l Medicine Outpati ent Clinics 2019-01-19 2019-01-19 [facility] [id number] 14[facility]31:00 14:31:00 [facility] Medicine l Medicine Outpati ent Clinics 2019-01-13 2019-01-13 Outpatient Esperanza Chapa [id number] 16:00:00 16:00:00 [facility] 2019-01-09 2019-01-09 Outpatient Esperanza Chapa [id number] 16:16:00 16:16:00 [facility] 2018-12-11 2018-12-11 Outpatient Esperanza Chapa [id number] 11:00:00 11:00:00 [facility] ent [facility] Results Test Description Test Time Test Comments Results Result Sourc e Comments TISSUE EXAM 2018-05-24 Surgical Pathology Report 13:16:00 Case: [id number] Authorizing Provider: Robert Hightower MD Collected: 03/06/2018 1828 Ordering Location: [facility] PERIOPERATIVE Received: 03/07/2018 0900 SERVICES Pathologist: Blu Bowers MD Specimen: Tumor The following results were reported by [employer]. Please see attached reports.PD-L1 22C3 FDA analysis confirms HIGH EXPRESSIONBRAF gene rearrangement is NOT DETECTEDROS1 gene rearrangement is NOT DETECTEDALK gene rearrangement is NOT DETECTEDEGFR mutations in exons 18, 19, 20 T790M and other mutations, 21Addendum electronically signed by Blu Bowers MD on 05/24/2018 at 1:16 PMBRAIN, CEREBELLUM, CRANIOTOMY:METASTATIC ADENOCARCINOMA WITH FOCAL SQUAMOUS DIFFERENTIATION (SEE COMMENT) Signing Pathologist Direct Phone Line: [phone] y signed by lBu Bowers MD on 03/19/2018 at 11:01 AMThe [...] tumor cells. Tumor is negative for p63. 68006; 13305; 79509 x 6Cancer of cerebellumTumor of craniumThe specimen [...] stains. Immunohistochemistry technical testing was performed at [facility], Pathology Laboratory where it was [...] and its performance characteristics determined by [facility], Pathology Laboratory. It has not been [...] Reference Range Interpretation Comme nts POC-GLUCOSE METER ([employer]) (test 174 mg/dL 70-[address] [facility] [address] code = 1538) [facility] 7703 0 POCT-GLUCOSE [id number] 12:07:00 Test Item Value Reference Range Interpretation Comments POC-GLUCOSE METER 114 mg/dL 70-[address] [facility] 6720 ([employer]) (test code = SHELLY Bill [facility] 1538) 9[address]08 POCT-GLUCOSE [id number] 07:14:00 Test Item Value Reference Range Interpretation Comments POC-GLUCOSE METER 104 mg/dL 70-[address] [facility] 6720 ([employer]) (test code = SHELLY Bill [facility] 1538) 89965 BASIC METABOLIC [id number] 05:46:00 Test Item Value Reference Range Interpretation [...] ESTIMATED GFR. CBC W/PLT COUNT & AUTO [id number] 05:20:00 Test Item Value Reference Range Interpretation [...] PERCENT (BEAKER) (test code = 2801) POCT-GLUCOSE [id number] 21:30:00 Test Item Value Reference Range Interpretation Comments POC-GLUCOSE METER 111 mg/dL 70-110 H TESTED AT [place] [address] (BEAKER) (test code = [facility] Bill [facility] 1538) 77468 POCT-GLUCOSE [id number] 18:19:00 Test Item Value Reference Range Interpretation Comments POC-GLUCOSE METER 175 mg/dL 70-110 H TESTED AT [place] [address] (BEAKER) (test code = [facility] Landy [facility] 1538) [address]15 POCT-GLUCOSE [id number] 08:28:00 Test Item Value Reference Range Interpretation Comments POC-GLUCOSE METER 143 mg/dL 70-110 H TESTED AT [place] [address] (BEAKER) (test code = [facility] aLndy [facility] 1538) 230[address] BASIC METABOLIC [id number] 06:32:00 Test Item Value Reference Range Interpretation [...] ESTIMATED GFR. CBC W/PLT COUNT & AUTO [id number] 06:29:00 Test Item Value Reference Range Interpretation [...] PERCENT (BEAKER) (test code = 2801) POCT-GLUCOSE [id number] 21:28:00 Test Item Value Reference Range Interpretation Comments POC-GLUCOSE METER 170 mg/dL 70-110 H TESTED AT [place] [address] ([facility]) (test code = SHELLY Bill [facility] 1538) 75447 POCT-GLUCOSE [id number] 18:02:00 Test Item Value Reference Range Interpretation Comments POC-GLUCOSE METER 180 mg/dL 70-110 H TESTED AT [place] [address] ([facility]) (test code = [facility] CLIN[facility] KBLE [facility] 1538) [address] POCT-GLUCOSE [id number] 13:34:00 Test Item Value Reference Range Interpretation Comments POC-GLUCOSE METER 235 mg/dL 70-110 H TESTED AT [place] [address] ([facility]) (test code = [facility] Landy [facility] 1538) [address] MR, BRAIN, [id number] 12:29:00FINAL REPORT MRI Brain with and without [...] MDReport Verified Date/Time: 03/08/2018 12:29:16 Reading Location: [address] Neuro Reading Room W/PLT COUNT & AUTO [id number] 07:59:00 Test Item Value Reference Range Interpretation [...] Received comment: User comments: Slide comments:BASIC METABOLIC [id number] 04:18:00 Test Item Value Reference Range Interpretation Comments SODIUM (BEAKER) 133 meq/L 136-145 L (test code = 381) POTASSIUM (BEAKER) 4.3 meq/L 3.5-5.1 (test code = 379) CHLORIDE (BEAKER) 101 meq/L 98-107 (test code = 382) CO2 ([facility]) (test 25 meq/L 22-29 code = 355) BLOOD UREA NITROGEN 17 mg/dL 7-21 (AKER) (test code = 354) CREATININE (AKER) 0.65 mg/dL 0.57-1.25 (test code = 358) GLUCOSE RANDOM 121 mg/dL 70-105 H ([facility]) (test code = 652) CALCIUM (AKER) 9.2 mg/dL 8.4-10.2 (test code = 697) EGFR ([facility]) (test mL/min/1.73 INSUFFIC IENT CLINICAL code = 1092) sq m DATA TO CALCULA TE ESTIMATED GFR. POCT-GLUCOSE [id number] 23:21:00 Test Item Value Reference Range Interpretation Comments POC-GLUCOSE METER 122 mg/dL 70-110 H TESTED AT [place] [address] ([facility]) (test code = [facility] [employer] [facility] Bill [facility] 1538) [address]883 POCT-GLUCOSE [id number] 22:02:00 Test Item Value Reference Range Interpretation Comments POC-GLUCOSE METER 122 mg/dL 70-110 H TESTED AT [place] [address] ([facility]) (test code = [facility] Land[place] 1538) [address] POCT-GLUCOSE [id number] 18:27:00 Test Item Value Reference Range Interpretation Comments POC-GLUCOSE METER 120 mg/dL 70-110 H TESTED AT [place] [address] ([facility]) (test code = [facility] Landy [facility] 1538) [address] POCT-GLUCOSE [id number] 12:26:00 Test Item Value Reference Range Interpretation Comments POC-GLUCOSE METER 130 mg/dL 70-110 H TESTED AT [place] [address] ([facility]) (test code = [facility] Land[place] 1538) [address] POCT-GLUCOSE [id number] 08:44:00 Test Item Value Reference Range Interpretation Comments POC-GLUCOSE METER 141 mg/dL 70-110 H TESTED AT [place] [address] ([facility]) (test code = [facility] [place] 1538) [address] CBC W/PLT COUNT & AUTO [id number] 07:37:00 Test Item Value Reference Range Interpretation Comments WHITE BLOOD CELL COUNT ([facility]) 27.9 K/ L 3.5-10.5 H (test code [...] Received comment: User comments: Slide comments:BASIC METABOLIC [id number] 04:29:00 Test Item Value Reference Range Interpretation [...] m DATA TO CALCULA TE ESTIMATED GFR. [id number] 04:28:00 Test Item Value Reference Range Interpretation Comments PHOSPHORUS (BEAKER) (test code = 3.4 mg/dL 2.3-4.7 604) [id number] 04:28:00 Test Item Value Reference Range Interpretation Comments MAGNESIUM (BEAKER) (test code = 1.9 mg/dL 1.6-2.6 627) POCT-GLUCOSE [id number] 22:29:00 Test Item Value Reference Range Interpretation Comments POC-GLUCOSE METER 147 mg/dL 70-[address] [facility] 6720 (BEAKER) (test code = [facility] 1538) [address] POCT-GLUCOSE [id number] 12:29:00 Test Item Value Reference Range Interpretation Comments POC-GLUCOSE METER 87 mg/dL 70-110 TESTED AT [place] [address] ([facility]) (test code = [facility] Landy [facility] [address] 1538) POCT-GLUCOSE [id number] 08:21:00 Test Item Value Reference Range Interpretation Comments POC-GLUCOSE METER 122 mg/dL 70-110 H TESTED AT [place] [address] ([facility]) (test code = [facility] 1538) [address] [id number] 05:32:00 Test Item Value Reference Range Interpretation Comments PROTIME ([facility]) (test code = 13.1 seconds 11.7-14.7 759) INR ([facility]) (test code = 370) 1.0 <=5.9 PARTIAL THROMBOPLASTIN TIME 24.2 seconds 22.5-36.0 ([facility]) (test code = 760) RECOMMENDED COUMADIN/WARFARIN INR THERAPY RANGESSTANDARD DOSE: 2.0 - 3.0 Includes: PROPHYLAXIS forvenous thrombosis, systemic embolization; TREATMENT for venous thrombosis and/or pulmonary embolus.HIGH RISK: Target INR is 2.5-3.5 for patients with mechanical heart valves.POCT-GLUCOSE [id number] 05:17:00 Test Item Value Reference Range Interpretation Comments POC-GLUCOSE METER 127 mg/dL 70-110 H TESTED AT [place] [address] ([facility]) (test code = [facility] 1538) [address] BASIC METABOLIC [id number] 05:16:00 Test Item Value Reference Range Interpretation [...] ESTIMATED GFR. CBC W/PLT COUNT & AUTO [id number] 04:56:00 Test Item Value Reference Range Interpretation [...] IMMATURE GRANULOCYTES-RELATIVE 2 % 0-1 H PERCENT ([facility]) (test code = 2801) POCT-GLUCOSE [id number] 22:07:00 Test Item Value Reference Range Interpretation Comments POC-GLUCOSE METER 157 mg/dL 70-[address] [facility] 67 ([facility]) (test code = [facility] 1538) [address]32 POCT-GLUCOSE [id number] 16:55:00 Test Item Value Reference Range Interpretation Comments POC-GLUCOSE METER 146 mg/dL 70-110 H TESTED AT [place] [address] ([facility]) (test code = [facility] 1538) [address] TISSUE [id number] 15:23:00Surgical Pathology Report Case: [id number] Authorizing Provider: Robert Tirado MD Collected: 03/04/2018916 [...] BIOPSY:ADENOCARCINOMA.SEE DIAGNOSTIC COMMENT. Signing Pathologist Direct Phone Line:[phone] signed by Terry Stanford MD on 03/05/2018 at 3:23 PMImmunohistochemical studies performed on block B1 demonstrate the tumor cells to be positive for TTF1 and Napsin A. They are negative for ER and PAX8. The immunoprofile is most compatible with an adenocarcinoma of pulmonary origin.58867m0, 85266, 05618f9, 72252L. Right upper lobe endobronchial biopsy. B. Right [...] stains. BLOCK B1- TTF1, NAPSIN A, ER, VPU5Mhlfkioyyaauvmpefhdv technical testing was performed at [facility], Pathology Laboratory where it was [...] complexity clinical laboratory testing.FINE NEEDLE ASPIRATE BY [id number] 12:41:00Medical Cytology Report Case: [id number] Authorizing Provider: Robert Tirado MD Collected: 03/04/2018 1023 Ordering Location: [address] Received: 03/04/2018 1244 Service Pathologist: Ben Vila MD Specimen: Lymph Node, Interlobar, Right, Station 11R LYMPH NODE, INTERLOBAR RIGHT, STATION 11R EBUS FNA BY CLINICIAN (CYTOSPINS OF ASPIRATE): - NEGATIVE FOR MALIGNANCY - LYMPHOCYTES PRESENT Signing Pathologist Direct Phone Line: [phone] signed by Ben Garcia MD on 03/05/2018 at 12:41 PMPlease also see surgical pathology report [id number] and cytopathology reports [id number], 3646, 3647 and 3648. 20093Xwlz massLYMPH NODE, INTERLOBAR RIGHT, STATION 11R EBUS FNA40 mls in cytorich red; 2 cytospinsCollected: [id number]: [id number] interpretation of this case included the use of immunohistochemistry or special stains. Immunohistochemistry technical testing was performed at [facility], Pathology Laboratory where it was [...] certified under the Clinical Laboratory Improvement Amendments oh2841 (CLIA-88) as qualified to perform high complexity clinical laboratory testing.[facility], Department of Pathology, [address] [place] [address], [facility], [facility] of Pathology, [address] [place] [address], [facility]ial[facility], Department of Pathology, [address] [place] [address], SUVI NEEDLE ASPIRATE BY [id number] 12:40:00Medical Cytology Report Case: [id number] Authorizing Provider: Robert Tirado MD Collected: 03/04/2018 1008 Ordering Location: [address] Received: 03/04/2018 1244 Service Pathologist: Ben Vila MD Specimen: Lymph Node, Lower Paratracheal, Right, Station 4R LYMPH NODE, LOWER PARATRACHEAL, RIGHT, STATION 4R EBUS FNA BY CLINICIAN (CYTOSPINS AND CELL BLOCK OF ASPIRATE): - NEGATIVE FOR MALIGNANCY Signing Pathologist Direct Phone Line: [phone] signed by Ben Vila MD on 03/05/2018 at 12:40 PMSmears and cell block show good sampling of anthracotic lymph node without granuloma or neoplasm.Please also see surgical pathology report [id number] and cytopathology reports [id number], 3646, 3647 and 3649. 83827, 44921Fzzh massLYMPH NODE, LOWER PARATRACHEAL, RIGHT, STATION 4R EBUS FNA40 mls in cytorich red; 2 cytospins, cell blockCollected: [id number]: [id number] interpretation of this case included the use of immunohistochemistry or special stains. Immunohistochemistry technical testing was performed at [facility], Pathology Laboratory where it was [...] qualified to perform high complexity clinical laboratory testing.[facility], Department of Pathology, [address] [place] [address], [facility], Department of Pathology, [address] [place] [address], [facility], Department of Pathology, [address] [place] [address], VLZB NEEDLE ASPIRATE BY [id number] 12:38:00Medical Cytology Report Case: [id number] Authorizing Provider: Robert Tirado MD Collected: 03/04/2018 1002 Ordering Location: [address] Received: 03/04/2018 1244 Service Pathologist: Ben Vila MD Specimen: Lymph Node, Subcarinal, Station 7 LYMPH NODE, SUBCARINAL, STATION 7 EBUS FNA BY CLINICIAN (CYTOSPINS AND CELL BLOCK OF ASPIRATE): - NEGATIVE FOR MALIGNANCY Signing Pathologist Direct Phone Line: [phone] signed by Ben Vila MD on 03/05/2018 at 12:38 PMSmears and cell block show good sampling of anthracotic lymph nodewithout granuloma or neoplasm.Please also see surgical pathology report [id number] and cytopathology reports [id number], 3646, 3648 and 3649. 39560, 94557Ksbv massLYMPH NODE, SUBCARINAL, STATION 7 FNAPrepared cell block(A2) and 2 cytospins from 40 ml cytorich red fixative specimen Collected: [id number]: [id number] interpretation of this case included the use of immunohistochemistry or special stains.Immunohistochemistry technical testing was performed at [facility], Pathology L aboratory where it [...] qualified to perform high complexity clinical laboratory testing.[facility], Department of Pathology, [address] [place] [address], [facility], [facility] of Pathology, [address] [place] [address], [facility], Department of Pathology, [address] [place] [address], HBWU NEEDLE ASPIRATE BY [id number] 12:35:00Medical Cytology Report Case: [id number] Authorizing Provider: Robert Tirado MD Collected: 03/04/2018 1001 Ordering Location: [address] Received: 03/04/2018 1244 Service Pathologist: Ben Vila MD Specimen: Lymph Node, Lower Paratracheal, Left, Station 4L LYMPH NODE, LOWER PARATRACHEAL, LEFT, STATION 4L, FNA BY CLINICIAN (CYTOSPINS OF ASPIRATE): - NEGATIVE FOR MALIGNANCY PREDOMINANTLY BRONCHIAL EPITHELIAL CELLS Signing Pathologist Direct Phone Line: [phone] signed by Ben Vila MD on 03/05/2018 at 12:35 PMPlease also see surgical pathology report [id number] and cytopathology reports [id number], 3647, 3648 and 3649. 85600Bcda massLYMPH NODE, LOWER PARATRACHEAL, LEFT, STATION 4L FNAPrepared 2 cytospins from 40 ml cytorich red fixative sampleCollected: [id number]: [id number] interpretation of this case included the use of immunohistochemistry or special stains. Immunohistochemistry technical testing was performed at [facility], Pathology Laboratory where it was [...] qualified to perform high complexity clinical laboratory testing.[facility], Department of Pathology, [address] [place] [address], [facility]jg[facility], Department of Patho logy, [address] [place] [address], HrcvtmMission [facility], Department of Pathology, [address] [place] [address], OTGQ-GLUCOSE [id number] 12:34:00 Test Item Value Reference Range Interpretation Comments POC-GLUCOSE METER 119 mg/dL 70-110 H TESTED AT [place] [address] (LILIANAAKER) (test code = SHELLY Bill [facility] 1538) [address] FINE NEEDLE ASPIRATE BY [id number] 12:34:00Medical Cytology Report Case: [id number] Authorizing Provider: Robert Tirado MD Collected: 03/04/2018 1001 Ordering Location: [address] Received: 03/04/2018 1244 Service Pathologist: Ben Vila MD Specimen: Lymph Node, Interlobar, Left, Station 11L LYMPH NODE, INTERLOBAR, LEFT, STATION 11L, FNA BY CLINICIAN (CYTOSPINS AND CELL BLOCK OF ASPIRATE): - NEGATIVE FOR MALIGNANCY Signing Pathologist Direct Phone Line: [phone] signed by Ben Vila MD on 03/05/2018 at 12:34 PMSmears and cell block show good sampling of anthracotic lymph node without granuloma or neoplasm.Please also see surgical pathology report [id number] and cytopathology reports [id number], 3647, 3648 and 3649. 77948, 10461Bpfn massLYMPH NODE, INTERLOBAR, LEFT, [id number] FNAPrepared cell block(A2) and 2 cytospins from 45 ml cytorich red fixative sampleCollected: [id number]: [id number] interpretation of this case included the use of immunohistochemistry or special stains. Immunohistochemistry technical testing was performed at [facility], Pathology Laboratory where it was [...] qualified to perform high complexity clinical laboratory testing.[facility], Department of Pathology, [address] [place] [address], [facility]dvM[facility], Department of Pathology, [address] [place] [address], ZcgjrsM[facility], Department of Pathology, [address] [place] [address], GBUO-GLUCOSE [id number] 08:25:00 Test Item Value Reference Range Interpretation Comments POC-GLUCOSE METER 114 mg/dL 70-110 H TESTED AT [place] [address] ([facility]) (test code = SHELLY Bill [place] [address]) [address] BASIC METABOLIC [id number] 05:45:00 Test Item Value Reference Range Interpretation [...] ESTIMATED GFR. CBC W/PLT COUNT & AUTO [id number] 05:42:00 Test Item Value Reference Range Interpretation [...] code = 416) BASOPHILS ABSOLUTE COUNT (AKER) 0.04 K/ L 0.01-0.08 (test code = 417) IMMATURE GRANULOCYTES-RELATIVE 1 % 0-1 PERCENT ([facility]) (test code = 2801) BLOOD [id number] 23:01:00 Test Item Value Reference Range Interpretation Comments CULTURE ([facility]) (test No growth in 5 days code = 1095) POCT-GLUCOSE [id number] 20:32:00 Test Item Value Reference Range Interpretation Comments POC-GLUCOSE METER 122 mg/dL 70-110 H TESTED AT [place] [address] ([facility]) (test code = [place] 1538) [address] POCT-GLUCOSE [id number] 17:53:00 Test Item Value Reference Range Interpretation Comments POC-GLUCOSE METER 199 mg/dL 70-110 H TESTED AT [place] [address] ([facility]) (test code = SHELLY Bill [facility] 1538) [address] EBUS FNA [id number] 14:00:00 Test Item Value Reference Range Interpretation Comments CYTOLOGY RESULT POINTER See Separate Report (BEAKER) (test code = 2629) EBUS FNA [id number] 14:00:00 Test Item Value Reference Range Interpretation Comments CYTOLOGY RESULT POINTER See Separate Report (BEAKER) (test code = 2629) EBUS FNA [id number] 14:00:00 Test Item Value Reference Range Interpretation Comments CYTOLOGY RESULT POINTER See Separate Report (BEAKER) (test code = 2629) EBUS FNA [id number] 14:00:00 Test Item Value Reference Range Interpretation Comments CYTOLOGY RESULT POINTER See Separate Report (BEAKER) (test code = 2629) EBUS FNA [id number] 14:00:00 Test Item Value Reference Range Interpretation Comments CYTOLOGY RESULT POINTER See Separate Report (BEAKER) (test code = 2629) POCT-GLUCOSE [id number] 12:06:00 Test Item Value Reference Range Interpretation Comments POC-GLUCOSE METER 114 mg/dL 70-110 H TESTED AT [place] [address] ([facility]) (test code = SHELLY Bill [facility] 1538) [address] BLOOD [id number] 10:00:00 Test Item Value Reference Range Interpretation Comments CULTURE (BEAKER) (test No growth in 5 days code = 1095) POCT-GLUCOSE [id number] 08:22:00 Test Item Value Reference Range Interpretation Comments POC-GLUCOSE METER 120 mg/dL 70-[address] [facility] 6720 (BEAKER) (test code = [place] 1538) [address] [id number] 06:39:00 Test Item Value Reference Range Interpretation Comments PARTIAL THROMBOPLASTIN TIME 25.2 seconds 22.5-36.0 (BEAKER) (test code = 760) PROTHROMBIN [id number] 06:38:00 Test Item Value Reference Range Interpretation Comments PROTIME (BEAKER) (test code = 13.6 seconds 11.7-14.7 759) INR (BEAKER) (test code = 370) 1.0 <=5.9 RECOMMENDED COUMADIN/WARFARIN INR THERAPY RANGESSTANDARD DOSE: 2.0 - 3.0 Includes: PROPHYLAXIS forvenous thrombosis, systemic embolization; TREATMENT for venous thrombosis and/or pulmonary embolus.HIGH RISK: Target INR is 2.5-3.5 for patients with mechanical heart valves.BASIC METABOLIC [id number] 06:38:00 Test Item Value Reference Range Interpretation [...] ESTIMATED GFR. CBC W/PLT COUNT & AUTO [id number] 06:19:00 Test Item Value Reference Range Interpretation [...] IMMATURE GRANULOCYTES-RELATIVE 2 % 0-1 H PERCENT ([facility]) (test code = 2801) POCT-GLUCOSE [id number] 22:29:00 Test Item Value Reference Range Interpretation Comments POC-GLUCOSE METER 175 mg/dL 70-110 H TESTED AT [place] [address] ([facility]) (test code = SHELLY [place] [facility] 1538) [address] BONE AND/OR JOINT IMAGING, WHOLE [id number] 15:34:00No histologic dx yet, but brain met with lung mass.FINAL REPORT PROCEDURE: BONE SCAN, WHOLE BODY CPT CODE: 05261 INDICATION: Right lung cancer with cerebellar metastasis [...] MDReport Verified Date/Time: 03/03/2018 15:34:30 Reading Location: [address] Reading Room POCT-GLUCOSE [id number] 11:44:00 Test Item Value Reference Range Interpretation Comments POC-GLUCOSE METER 180 mg/dL 70-110 H TESTED AT [place] [address] ([facility]) (test code = SHELLY Bill [facility] 1538) [address] POCT-GLUCOSE [id number] 08:31:00 Test Item Value Reference Range Interpretation Comments POC-GLUCOSE METER 111 mg/dL 70-110 H TESTED AT [place] [address] ([facility]) (test code = SHELLY Bill [facility] 1538) [address] CBC W/PLT COUNT & AUTO [id number] 05:37:00 Test Item Value Reference Range Interpretation Comments WHITE BLOOD CELL COUNT ([facility]) 18.9 K/ L 3.5-10.5 H (test code [...] PERCENT (BEAKER) (test code = 2801) POCT-GLUCOSE [id number] 21:27:00 Test Item Value Reference Range Interpretation Comments POC-GLUCOSE METER 202 mg/dL 70-[address] [facility] 6720 (BEAKER) (test code = SHE[place] 1538) [address] POCT-GLUCOSE [id number] 13:34:00 Test Item Value Reference Range Interpretation Comments POC-GLUCOSE METER 94 mg/dL 70-[address] [facility] 6720 (BEAKER) (test code = SHELLY Bill [facility] [address]38) POCT-GLUCOSE [id number] 08:43:00 Test Item Value Reference Range Interpretation Comments POC-GLUCOSE METER 118 mg/dL 70-[address] [facility] 6720 (BEAKER) (test code = [place] Bill [facility] 1538) [address] URINALYSIS W/ REFLEX URINE [id number] 07:40:00 Test Item Value Reference Range Interpretation [...] code = 516) SOURCE(BEAKER) (test code = 5034) BASIC METABOLIC [id number] 07:17:00 Test Item Value Reference Range Interpretation [...] ESTIMATED GFR. CBC W/PLT COUNT & AUTO [id number] 06:15:00 Test Item Value Reference Range Interpretation [...] PERCENT (BEAKER) (test code = 2801) POCT-GLUCOSE [id number] 21:08:00 Test Item Value Reference Range Interpretation Comments POC-GLUCOSE METER 175 mg/dL 70-[address] [facility] 6720 (BEAKER) (test code = [employer] [facility] [facility] CLINICDARCY Bill [facility] 1538) [address] POCT-GLUCOSE [id number] 17:48:00 Test Item Value Reference Range Interpretation Comments POC-GLUCOSE METER 114 mg/dL 70-[address] [facility] 6720 (BEAKER) (test code = [facility] Landy [facility] 1538) [address] POCT-GLUCOSE [id number] 12:27:00 Test Item Value Reference Range Interpretation Comments POC-GLUCOSE METER 119 mg/dL 70-[address] [facility] 6720 (BEAKER) (test code = [facility] 1538) [address] BASIC METABOLIC [id number] 08:12:00 Test Item Value Reference Range Interpretation [...] ESTIMATED GFR. CBC W/PLT COUNT & AUTO [id number] 07:21:00 Test Item Value Reference Range Interpretation [...] PERCENT (BEAKER) (test code = 2801) POCT-GLUCOSE [id number] 06:08:00 Test Item Value Reference Range Interpretation Comments POC-GLUCOSE METER 113 mg/dL 70-[address] [facility] 67 ([facility]) (test code = SHELLY Bill [facility] 1538) [address] POCT-GLUCOSE [id number] 18:58:00 Test Item Value Reference Range Interpretation Comments POC-GLUCOSE METER 117 mg/dL 70-110 H TESTED AT [place] [address] ([facility]) (test code = RAFAELAK Landy [facility] 1538) [address] CT, CHEST, WITH [id number] 15:20:00FINAL REPORT CT of the Chest, abdomen [...] MDReport Verified Date/Time: 02/28/2018 15:20:36 Reading Location: [address] Body Reading Room CT, [id number] 15:20:00FINAL REPORT CT of the Chest, abdomen [...] Date/Time: 02/28/2018 15:20:36 Reading Location: [facility] C013Y CT Body Reading Room POCT-GLUCOSE [id number] 08:55:00 Test Item Value Reference Range Interpretation Comments POC-GLUCOSE METER 125 mg/dL 70-110 H TESTED AT [place] [address] ([facility]) (test code = SHELLY Bill [facility] 1538) [address] MR, BRAIN, [id number] 07:59:00STEALTH protocolFINAL REPORT MRI Brain with and [...] MDReport Verified Date/Time: 02/28/2018 07:59:07 Reading Location: [facility] C013V Neuro Reading Room POCT- GLUCOSE [id number] 06:39:00 Test Item Value Reference Range Interpretation Comments POC-GLUCOSE METER 150 mg/dL 70-[address] [facility] 6720 ([facility]) (test code = SHE[place] Bill [facility] 1538) [address] BASIC METABOLIC [id number] 05:51:00 Test Item Value Reference Range Interpretation Comments SODIUM (BEAKER) 137 meq/L 136-145 (test code = 381) POTASSIUM (BEAKER) 3.8 meq/L 3.5-5.1 (test code = 379) CHLORIDE (BEAKER) 104 meq/L 98-107 (test code = 382) CO2 (BEAKER) (test 24 meq/L 22-29 code = 355) BLOOD UREA NITROGEN 13 mg/dL 7-21 ([facility]) (test code = 354) CREATININE (BEAKER) 0.72 mg/dL 0.57-1.25 (test code = 358) GLUCOSE RANDOM 131 mg/dL 70-105 H (BEAKER) (test code = 652) CALCIUM (BEAKER) 9.9 mg/dL 8.4-10.2 (test code = 697) EGFR (BEAKER) (test mL/min/1.73 INSUFFIC IENT CLINICAL code = 1092) sq m DATA TO CALCULA TE ESTIMATED GFR. CBC W/PLT COUNT & AUTO [id number] 04:09:00 Test Item Value Reference Range Interpretation [...] PERCENT (BEAKER) (test code = 2801) POCT-GLUCOSE [id number] 00:17:00 Test Item Value Reference Range Interpretation Comments POC-GLUCOSE METER 122 mg/dL 70-110 H TESTED AT [place] [address] ([facility]) (test code = SHELLY Bill [facility] 1538) [address] POCT-GLUCOSE [id number] 18:35:00 Test Item Value Reference Range Interpretation Comments POC-GLUCOSE METER 134 mg/dL 70-110 H TESTED AT [place] [address] ([facility]) (test code = SHELLY Bill [facility] 1538) [address] POCT-GLUCOSE [id number] 12:10:00 Test Item Value Reference Range Interpretation Comments POC-GLUCOSE METER 146 mg/dL 70-110 H TESTED AT [place] [address] ([facility]) (test code = SHELLY Bill [facility] 1538) [address] [id number] 07:56:00 Test Item Value Reference Range Interpretation Comments PROCALCITONIN ([facility]) (test code = < ng/mL <0.05 3036) SEPSIS RISK (ng/mL)Low: 0.05-0.50Intermediate: 0.51-2.00High: >=2.01LACTATE DEHYDROGENASE (LDH)2018-02-27 06:52:00 Test Item Value Reference Range Interpretation Comments LACTATE DEHYDROGENASE (BEAKER) (test 146 U/L 125-220 code = 635) C-REACTIVE [id number] 06:52:00 Test Item Value Reference Range Interpretation Comments C-REACTIVE PROTEIN (BEAKER) (test 8.22 mg/dL 0.00-0.50 H code = 676) LACTIC ACID, ARTERIAL, WHOLE [id number] 06:01:00 Test Item Value Reference Range Interpretation Comments LACTATE BLOOD ARTERIAL (2) 1.0 mmol/L 0.5-2.2 (BEAKER) (test code = 2874) BASIC METABOLIC [id number] 05:52:00 Test Item Value Reference Range Interpretation [...] DATA TO CALCULA TE ESTIMATED GFR. TROPONIN [id number] 05:48:00 Test Item Value Reference Range Interpretation Comments TROPONIN I (BEAKER) (test code = 397) < ng/mL 0.00-0.03 [id number] 05:43:00 Test Item Value Reference Range Interpretation Comments MAGNESIUM (BEAKER) 2.1 mg/dL 1.6-2.6 Specimen slightly (test code = 627) hemolyzed [id number] 05:43:00 Test Item Value Reference Range Interpretation Comments PHOSPHORUS (BEAKER) 4.1 mg/dL 2.3-4.7 Specimen slightly (test code = 604) hemolyzed CBC W/PLT COUNT & AUTO [id number] 05:34:00 Test Item Value Reference Range Interpretation [...] PERCENT (BEAKER) (test code = 2801) POCT-GLUCOSE [id number] 05:32:00 Test Item Value Reference Range Interpretation Comments POC-GLUCOSE METER 118 mg/dL 70-[address] [facility] 6720 ([facility]) (test code = RAFAELDARYC [place] 1538) [address] [id number] 05:20:00 Test Item Value Reference Range Interpretation [...] 2.5-3.5 for patients with mechanical heart valves.PROTHROMBIN TIME/[id number] 05:19:00 Test Item Value Reference Range Interpretation [...]
[2020-08-27 14:44] LABS: Basophils % 1.1 % (0-1.3); Hematocrit 39.3 % (36.0-45.0); Lymphocytes % 23.7 % (15.3-44.8); MPV 7.4 fL (7.6-11.3); RBC Red Blood Cell Count 4.55 M/uL (3.86-4.86)
--- NOTE | 2020-08-27 15:01 | RAD REPORT ---
EXAM DESCRIPTION: CT - Head Brain Wo Cont - 08/27/2020 2:46 pm CLINICAL HISTORY: Headache COMPARISON: 2019 TECHNIQUE: Computed axial tomography of the head was obtained. IV contrast was not requested. All CT scans are performed using dose optimization technique as appropriate and may include automated exposure control or mA/KV adjustment according to patient size. FINDINGS: An intracranial bleed is not seen . The ventricles are normal in caliber. No extra-axial fluid collection is noted. A suboccipital craniotomy has been performed. Small left frontal lobe calcification unchanged Fluid within the sinuses/ mastoids is not seen. IMPRESSION: No acute intracranial abnormality is seen. If patient's symptoms persist MRI of the bra in would be recommended.
[2020-08-27 15:06] LABS: ALT/SGPT 43 U/L (12-78); AST/SGOT 19 U/L (15-37); Albumin 3.4 g/dL (3.4-5.0); Alkaline Phosphatase 137 U/L (45-117); Amylase 28 U/L (25-115); BUN Blood Urea Nitrogen 16 mg/dL (7-18); Bicarbonate 23 mmol/L (21-32); Bilirubin Direct 0.1 mg/dL (0-0.2); Bilirubin Total 0.5 mg/dL (0.2-1.0); CKMB Creatine Kinase MB 1.3 ng/mL (0.3-3.6); Creatine Phosphokinase 61 U/L (26-192); Glucose Level 111 mg/dL (74-106); Lipase 57 U/L (73-393); Potassium 3.4 mmol/L (3.5-5.1); Protein, Total 8.8 g/dL (6.4-8.2); Sodium Level 134 mmol/L (136-145); Troponin (Emerg Dept Use Only) < 0.02 ng/mL (0.0-0.045)
[2020-08-27] MEDS ORDERED: NA CHLORIDE 0.9% 1,000 ML ONE (15:06)
--- NOTE | 2020-08-27 15:10 | RAD REPORT ---
EXAM DESCRIPTION: CT - Chest Abdomen Pelvis W Cont - 08/27/2020 2:55 pm CLINICAL HISTORY: Lung cancer with abdominal pain and vomiting COMPARISON: April 2020 CT abdomen June 2020 CT chest TECHNIQUE: Computed axial tomography of the chest, abdomen and pelvis was obtained. 100 cc Isovue-30 0 administered intravenously. Oral contrast not given which limits evaluation of bowel All CT scans are performed using dose optimization technique as appropriate and may include automated exposure control or mA/KV adjustment according to patient size. FINDINGS: 6.9 x 4.4 centimeter right upper lobe mass mildly increased in size. Mild mediastinal lymphadenopathy unchanged A pleural effusion is not present. A pericardial effusion is not seen. A lung consolidation is not present. The lungs are essentially clear. Fatty liver. Cholecystectomy. Small duodenal diverticulum There is no evidence of diverticulitis. Normal appendix IMPRESSION: 6.9 centimeter right upper lobe mass mildly increased in size No acute abnormality involving abdomen/pelvis is seen
[2020-08-27 15:20] LABS: Protime INR 1.19
--- NOTE | 2020-08-27 15:22 | RAD REPORT ---
EXAM DESCRIPTION: Brandon Single View08/27/2020 2:00 pm CLINICAL HISTORY: Cough COMPARISON: 2019 FINDINGS: Right upper lobe mass is again demonstrated. Remainder lungs appear clear. The heart is normal size
[2020-08-27 16:19] LABS: Urine Blood 1+ (Negative); Urine Glucose Negative (Negative); Urine Protein Trace (Negative); Urine Specific Gravity <=1.005 (1.005-1.030); Urine pH 5.5 (5.0-7.0)
[2020-08-27 16:32] LABS: Urine Bacteria <20 /HPF (<20); Urine RBC <5 /HPF (NONE SEEN)
[2020-08-27 16:52] LABS: SARS-COV-2 RT PCR NEGATIVE (NEGATIVE)
[2020-08-27] MEDS ORDERED: ACETAMINOPHEN 325 MG TABLET ONE (17:07)
--- NOTE | 2020-08-27 19:06 | EDPHYS ---
Physician Documentation [facility] Name: Albania Alfaro Age: 60 yrs Sex: Female : 1960 Arrival Date: 08/27/2020 Time: 13:11 Bed 18 Private MD: DEBBIE Physician Cj Walker HPI: 08/27 14:03 This 60 yrs old Female presents to ER via Wheelchair with complaints of pm1 Headache, Diarrhea, Nausea, Weakness. 14:03 Patient presents to the ER with multiple complaints that started three weeks ago after pm1 her chemotherapy for right lung cancer. Patient has had 6 chemotherapy sessions. Patient is complaining of generalized weakness, fatigue, SOB that resolved with albuterol, cough, nausea, vomiting, diarrhea, headache on and off, and decreased appetite. She reports that she typically has generalized weakness and fatigue after chemotherapy that lasts for about 1.5 weeks. She felt that she was getting COVID symptoms and has been seen by her oncologist for this same complaint. Tested for COVID as a result and it was negative. Onset: The symptoms/episode began/occurred 3 week(s) ago. Severity of symptoms: in the emergency department the symptoms have improved SOB that she had this Saturday was resolved with albuterol inhaler. The patient has been recently seen by a physician: with similar presenting complaints. 14:03 No fever since onset of symptoms. pm1 Historical: - Allergies: 13:22 Erythromycin; ca1 - PMHx: 13:22 Cancer; Diverticulitis; Lung Cancer; Vertigo; ca1 - PSHx: 13:22 Cholecystectomy; Tubal ligation; ca1 - Immunization history:: Client reports having NOT received the Covid vaccine. Pneumococcal vaccine status is unknown, Flu vaccine is not up to date. - Social history:: Smoking status: Patient/guardian denies using tobacco, the patient reports quitting approximately 17 years ago. ROS: 14:03 Eyes: Negative for injury, pain, redness, and discharge. pm1 14:03 Neck: Negative for injury, pain, and swelling, Cardiovascular: Negative for chest pain, palpitations, and edema. 14:03 Back: Negative for injury and pain, : Negative for injury, bleeding, discharge, and swelling, MS/Extremity: Negative for injury and deformity, Skin: Negative for injury, rash, and discoloration. 14:03 Constitutional: Positive for poor PO intake, Negative for fever. 14:03 ENT: Positive for sore throat, Negative for ear pain, difficulty swallowing, difficulty handling secretions, hoarseness. 14:03 Respiratory: Positive for cough, wheezing, Negative for shortness of breath, onset and resolved with albuterol inhaler 1 week ago. 14:03 Abdomen/GI: Positive for nausea, vomiting, and diarrhea, Negative for abdominal pain. 14:03 Neuro: Positive for headache, Generalized weakness, Negative for numbness, tingling, pm1 Focal weakness. Exam: 14:03 Constitutional: This is a well developed, well nourished patient who is awake, alert, pm1 and in no acute distress. Head/Face: Normocephalic, atraumatic. Eyes: Pupils equal round and reactive to light, extra-ocular motions intact. Lids and lashes normal. Conjunctiva and sclera are non-icteric and not injected. Cornea within normal limits. Periorbital areas with no swelling, redness, or edema. ENT: Nares patent. No nasal discharge, no septal abnormalities noted. Tympanic membranes are normal and external auditory canals are clear. Oropharynx with no redness, swelling, or masses, exudates, or evidence of obstruction, uvula midline. Mucous membranes moist. 14:03 Back: No spinal tenderness. No costovertebral tenderness. Full range of motion. Skin: Warm, dry with normal turgor. Normal color with no rashes, no lesions, and no evidence of cellulitis. MS/ Extremity: Pulses equal, no cyanosis. Neurovascular intact. Full, normal range of motion. 14:03 Cardiovascular: Exam negative for acute changes, Rate: normal, Rhythm: regular, Pulses: no pulse deficits are appreciated, Edema: is not appreciated. 14:03 Respiratory: Exam negative for acute changes, respiratory distress, shortness of breath, Breath sounds: are clear throughout. 14:03 Abdomen/GI: Inspection: abdomen appears normal, Palpation: abdomen is soft and non-tender, in all quadrants. 14:03 Neuro: Exam negative for acute changes, Orientation: is normal, Mentation: is normal, Motor: is normal, moves all fours. Vital Signs: 13:14 BP 125 / 79; Pulse 107; Resp 16 S; Temp 97.1(TE); Pulse Ox 98% on R/A; Weight 79.38 kg ca1 (R); Height 5 ft. 4 in. (162.56 cm) (R); Pain 3/10; 14:20 BP 125 / 75; Pulse 90; Resp 17; Pulse Ox 96% ; rb3 15:11 BP 127 / 75; Pulse 83; Resp 17; Pulse Ox 99% ; rb3 16:10 BP 138 / 75; Pulse 87; Resp 19; Pulse Ox 99% ; rb3 17:00 BP 105 / 60; Pulse 91; Resp 17; Pulse Ox 99% ; rb3 19:40 BP 117 / 62; Pulse 85; Resp 16; Pulse Ox 98% ; rr5 13:14 Body Mass Index 30.04 (79.38 kg, 162.56 cm) ca1 MDM: 13:47 Patient medically screened. pm1 19:05 Data reviewed: vital signs. Data interpreted: Pulse oximetry: on room air is 99 %. pm1 Interpretation: normal. Counseling: I had a detailed discussion with the patient and/or guardian regarding: the historical points, exam findings, and any diagnostic results supporting the discharge/admit diagnosis, lab results, radiology results, the need for outpatient follow up, to return to the emergency department if symptoms worsen or persist or if there are any questions or concerns that arise at home. 19:20 ED course: [facility] aware reviewed. Last narcotic medication filled 05/09/2020 for pm1 generalized cancer pain. 19:20 ED course: Patient would like her inhaler refilled and something for cough. She reports pm1 primarily vomiting when she has multiple coughing episodes in a row. I recommended cough medications for discharge. Patient already has zofran 8mg PRN at home. 08/27 13:47 Order name: COVID-19 : Document "Date of Symptom Onset" if Symptomatic. pm1 08/27 13:47 Order name: Flu pm08/27 13:47 Order name: Strep pm08/27 13:47 Order name: Amylase, Serum pm08/27 13:47 Order name: Basic Metabolic Panel pm08/27 13:47 Order name: Blood Culture Adult (2) pm1 08/27 13:47 Order name: CBC with Diff pm08/27 13:47 Order name: Ckmb; Complete Time: 15:08 pm08/27 13:47 Order name: CPK; Complete Time: 15:08 pm08/27 13:47 Order name: Lactate; Complete Time: 15:08 pm08/27 13:47 Order name: LFT's; Complete Time: 15:08 pm08/27 13:47 Order name: Lipase; Complete Time: 15:08 pm08/27 13:47 Order name: Procalcitonin; Complete Time: 15:27 pm08/27 13:47 Order name: Protime (+inr); Complete Time: 15:27 pm08/27 13:47 Order name: Ptt, Activated; Complete Time: 15:27 pm08/27 13:47 Order name: Troponin (emerg Dept Use Only); Complete Time: 15:08 pm08/27 13:47 Order name: Urine Microscopic Only; Complete Time: 16:49 pm08/27 13:47 Order name: Chest Single View XRAY; Complete Time: 15:27 pm08/27 13:47 Order name: CT Head Brain wo Cont; Complete Time: 15:03 pm08/27 13:47 Order name: CT Chest, Abdomen, Pelvis - W/Contrast; Complete Time: 15:27 pm08/27 13:47 Order name: Group A Streptococcus Rapid Sc; Complete Time: 16:49 ED08/27 13:47 Order name: Amylase; Complete Time: 15:08 EDAZ 08/27 13:47 Order name: Basic Metabolic Panel; Complete Time: 15:08 EDMS 08/27 13:47 Order name: Blood Culture [facility] 08/27 13:47 Order name: CBC with Automated Diff; Complete Time: 14:50 08/27 16:19 Order name: Urine Dipstick-Ancillary; Complete Time: 16:20 ED08/27 16:31 Order name: Throat Culture [place] 08/27 16:53 Order name: COVID-19/FLU A+B; Complete Time: 16:55 EDAZ 08/27 13:47 Order name: Droplet/Contact Precautions; Complete Time: 14:42 pm08/27 13:47 Order name: Cardiac monitoring; Complete Time: 14:14 pm08/27 13:47 Order name: EKG - Nurse/Tech; Complete Time: 15:25 pm08/27 13:47 Order name: IV Saline Lock - Large Bore; Complete Time: 14:41 pm 08/27 13:47 Order name: O2 Sat Monitoring; Complete Time: 14:41 pm1 08/27 13:47 Order name: Urine Dipstick-Ancillary (obtain specimen); Complete Time: 18:24 pm1 Administered Medications: 14:41 Drug: NS 0.9% 1000 ml Route: IV; Rate: 1000 ml; Site: right antecubital; rb3 15:49 Follow up: IV Status: Completed infusion rb3 16:50 Drug: Tylenol 650 mg Route: PO; rb3 Disposition: 08/27/20 19:06 Discharged to Home. Impression: Dehydration, Diarrhea, unspecified, Nausea and vomiting. - Condition is Stable. - Discharge Instructions: Food Choices to Help Relieve Diarrhea, Adult, Dehydration, Adult, Diarrhea, Adult, Nausea and Vomiting, Adult, Rehydration, Adult. - Prescriptions for Albuterol Sulfate 90 mcg/actuation - inhale 1-2 puff by INHALATION route every 4-6 hours; 1 Inhaler. Guaifenesin AC 10- 100 mg/5 mL Oral Liquid - take 10 milliliter by ORAL route every 4 hours As needed; 240 milliliter. - Medication Reconciliation Form, Thank You Letter, Antibiotic Education, Prescription Opioid Use, SBAR form form. - Follow up: Emergency Department; When: As needed; Reason: Worsening of condition. Follow up: Private Physician; When: 2 - 3 days; Reason: Recheck today's complaints, Continuance of care, Re-evaluation by your physician. - Problem is new. - Symptoms have improved. Addendum: 08/29/2020 07:17 Co-signature as Attending Physician, Cj Walker MD I agree with the assessment and c chappell plan of care. Signatures: Dispatcher [employer] [facility] Cj Walker MD MD cha Marinas, Patrick, SUPERVISOR [employer]TING SUPERVISOR [employer]TING pm1 Octavio Negron, RN RN rr5 Krys Laurent, RN RN Cher Meehan, RN RN rb3 Corrections: (The following items were deleted from the chart) 08/27 16:09 13:47 CORONAVIRUS ordered. [facility] 16:24 13:47 Accucheck ordered. pm1 rb3 16:58 13:47 Influenza Screen (A ordered. [facility] EDMS 19:49 19:06 08/27/2020 19:06 Discharged to Home. Impression: Dehydration; Diarrhea, rr5 unspecified; Nausea and vomiting. Condition is Stable. Forms are SBAR form, Medication Reconciliation Form, Thank You Letter, Antibiotic Education, Prescription Opioid Use. Follow up: Emergency Department; When: As needed; Reason: Worsening of condition. Follow up: Private Physician; When: 2 - 3 days; Reason: Recheck today's complaints, Continuance of care, Re-evaluation by your physician. Problem is new. Symptoms have improved. pm1 20:35 14:03 Back: Negative for injury and pain, : Negative for injury, bleeding, discharge, pm1 and swelling, MS/Extremity: Negative for injury and deformity, Skin: Negative for injury, rash, and discoloration, Neuro: Negative for headache, weakness, numbness, tingling, and seizure, pm1
--- NOTE | 2020-08-27 19:06 | ER ---
Nurse's Notes [facility] Name: Albania Alfaro Age: 60 yrs Sex: Female : 1960 Arrival Date: 08/27/2020 Time: 13:11 Bed 18 Private MD: Diagnosis: Dehydration;Diarrhea, unspecified;Nausea and vomiting Presentation: 08/27 13:14 Chief complaint: Patient states: S/S started 08/12/2020. S/S Exhaustion, extreme ca1 weakness, SOB, cough, diarrhea, headache off and on, Nausea and vomiting, indigestion, chills. Covid neg 08/26/2020. Pt has R lung cancer with chemotherapy. Symptoms started 3 days after chemo. [place] similar with previous chemo sessions, but symptoms usually go away on the 2nd week after chemo. this time symptoms lasted 3 weeks after chemo. Coronavirus screen: Client denies travel out of the [place] in the last 14 days. chills, cough unrelated to allergies, difficulty breathing, fatigue, nausea, vomiting. Client presents with at least one sign or symptom that may indicate coronavirus-19. Standard/surgical mask placed on the client. Provider contacted for isolation considerations. The client reports previous COVID testing was negative. Date of collection: August 26, 2020. Ebola Screen: Patient negative for fever greater than or equal to 101.5 degrees Fahrenheit, and additional compatible Ebola Virus Disease symptoms Patient denies exposure to infectious person. Patient denies travel to an Ebola-affected area in the 21 days before illness onset. No symptoms or risks identified at this time. Initial Sepsis Screen: Does the patient meet any 2 criteria? No. Patient's initial sepsis screen is negative. Does the patient have a suspected source of infection? No. Patient's initial sepsis screen is negative. Risk Assessment: Do you want to hurt yourself or someone else? Patient reports no desire to harm self or others. Onset of symptoms was August 27, 2020. 13:14 Method Of Arrival: Wheelchair ca1 13:14 Acuity: AILYN 3 ca1 Historical: - Allergies: 13:22 Erythromycin; ca1 - PMHx: 13:22 Cancer; Diverticulitis; Lung Cancer; Vertigo; ca1 - PSHx: 13:22 Cholecystectomy; Tubal ligation; ca1 - Immunization history:: Client reports having NOT received the Covid vaccine. Pneumococcal vaccine status is unknown, Flu vaccine is not up to date. - Social history:: Smoking status: Patient/guardian denies using tobacco, the patient reports quitting approximately 17 years ago. Screenin:25 Abuse screen: Denies threats or abuse. Nutritional screening: decreased appetite . rb3 Tuberculosis screening: No symptoms or risk factors identified. Fall Risk None identified. Assessment: 13:25 General: Appears in no apparent distress. comfortable, Behavior is calm, cooperative, rb3 Denies fever. Pain: Denies pain. Neuro: Level of Consciousness is awake, alert, obeys commands, Oriented to person, place, time, situation, Reports weakness generalized. Cardiovascular: Patient's skin is warm and dry. Respiratory: Reports cough that is Airway is patent Respiratory effort is even, unlabored, Respiratory pattern is regular, symmetrical, Denies shortness of breath. GI: Reports diarrhea, since x 6 days Has had nausea and vomiting for the pat 2 days. 13:25 Neuro: Reports Headaches off and on. Has pressure behind her eyes with the headache.. rb3 : No signs and/or symptoms were reported regarding the genitourinary system. EENT: Reports sore throat. 14:20 Reassessment: Patient appears in no apparent distress at this time. No changes from rb3 previously documented assessment. 15:04 Reassessment: Patient appears in no apparent distress at this time. Patient and/or rb3 family updated on plan of care and expected duration. Pain level reassessed. Patient is alert, oriented x 3, equal unlabored respirations, skin warm/dry/pink. 16:00 Reassessment: Patient appears in no apparent distress at this time. No changes from rb3 previously documented assessment. 16:14 Reassessment: Pt. ambulated to the restroom without difficulty. rb3 19:45 Reassessment: Patient appears in no apparent distress at this time. Patient is alert, rr5 oriented x 3, equal unlabored respirations, skin warm/dry/pink. discharge instruction given and explained without complaints made Patient states symptoms have improved. Vital Signs: 13:14 BP 125 / 79; Pulse 107; Resp 16 S; Temp 97.1(TE); Pulse Ox 98% on R/A; Weight 79.38 kg ca1 (R); Height 5 ft. 4 in. (162.56 cm) (R); Pain 3/10; 14:20 BP 125 / 75; Pulse 90; Resp 17; Pulse Ox 96% ; rb3 15:11 BP 127 / 75; Pulse 83; Resp 17; Pulse Ox 99% ; rb3 16:10 BP 138 / 75; Pulse 87; Resp 19; Pulse Ox 99% ; rb3 17:00 BP 105 / 60; Pulse 91; Resp 17; Pulse Ox 99% ; rb3 19:40 BP 117 / 62; Pulse 85; Resp 16; Pulse Ox 98% ; rr5 13:14 Body Mass Index 30.04 (79.38 kg, 162.56 cm) ca1 ED Course: 13:11 Patient arrived in ED. ds1 13:21 Triage completed. ca1 13:22 Arm band placed on right wrist. ca1 13:25 Patient has correct armband on for positive identification. Bed in low position. Call rb3 light in reach. Side rails up X 1. Pulse ox on. NIBP on. Warm blanket given. 13:26 Joselito Barr NP is PHCP. pm1 13:26 Cj Walker MD is Attending Physician. pm1 13:43 Cher Garcia, KRISTOPHER is Primary Nurse. rb3 14:00 Chest Single View XRAY In Process Unspecified. EDMS 14:41 Inserted saline lock: 20 gauge in right antecubital area, using aseptic technique. dh4 Blood collected. 14:46 CT Head Brain wo Cont In Process Unspecified. EDMS 14:55 CT Chest, Abdomen, Pelvis - W/Contrast In Process Unspecified. EDMS 16:25 Urine Microscopic Only Sent. mh5 16:26 Urine collected: clean catch specimen, clear, EKG done, COVID swab sent to lab. Flu mh5 and/or RSV swab sent to lab. Strep swab sent to lab. 18:24 Urine collected:. mh5 19:40 No provider procedures requiring assistance completed. IV discontinued, intact, rr5 bleeding controlled, No redness/swelling at site. Pressure dressing applied. Administered Medications: 14:41 Drug: NS 0.9% 1000 ml Route: IV; Rate: 1000 ml; Site: right antecubital; rb3 15:49 Follow up: IV Status: Completed infusion rb3 16:50 Drug: Tylenol 650 mg Route: PO; rb3 Outcome: 19:06 Discharge ordered by . pm1 19:49 Patient left the ED. rr5 21:05 Discharged to home via wheelchair. rr5 21:05 Condition: stable 21:05 Discharge instructions given to patient, Instructed on discharge instructions, follow up and referral plans. medication usage, Demonstrated understanding of instructions, follow-up care, medications, Prescriptions given X 2. Signatures: Dispatcher [employer] EDCharito Sood ds1 Joselito Barr, RADHA TERRAZZO TILE MAKER pm1 Rica Jenkins 5 Octavio Negron RN RN rr5 Krys Laurent RN RN ca1 Porter, Zechariah 4 Cher Garcia RN RN rb3 Corrections: (The following items were deleted from the chart) 13:27 13:14 Chief complaint: Patient states: S/S started 08/12/2020. S/S Exhaustion, extreme ca1 weakness, SOB, cough, diarrhea, headache off and on, Nausea and vomiting, indigestion, chills. Covid neg 08/26/2020. Pt has R lung cancer with chemotherapy. Symptoms started 3 days after chemo. [place] similar with previous chemo sessions, but symptoms usually go away on the 2nd week after chemo. this time symptoms lasted 3 weeks after chemo. ca1 17:57 17:00 BP 135 / 77; Pulse 88bpm; Resp 17bpm; Pulse Ox 100%; rb3 rb3 21:05 21:05 No provider procedures requiring assistance completed. rr5 rr5 21:05 21:05 IV discontinued, intact, bleeding controlled, No redness/swelling at site. rr5 Pressure dressing applied, rr5
[2020-08-27 19:58] VITALS: TEMP 97.1
[2020-08-27 20:00] VITALS: O2SAT 99
[2020-08-27 20:03] VITALS: BP 105/60
--- NOTE | 2020-08-31 12:08 | EKG ---
Test Date: 2020-08-27 Test Time: 15:15:19 [employer] [employer]: TIBURCIO MEASUREMENT RESULTS: Intervals: Rate: 81 OK: 146 QRSD: 88 QT: 428 QTc: 497 [place]: P: 56 OK: 146 QRS: 54 T: 73 INTERPRETIVE STATEMENTS: Normal sinus rhythm Nonspecific T wave abnormality Prolonged QT Abnormal ECG Compared to ECG 04/23/2020 20:00:25 T-wave abnormality now present Prolonged QT interval now present Electronically Signed On 08-31-20 11:55:25 CDT by Wili Becker
== END 2020-08-27 19:49 | disposition home or self-care (01) ==
LOC: ER 13:05
DX: R19.7 Diarrhea, unspecified (principal); E86.0 Dehydration; R51.9 Headache, unspecified; R11.2 Nausea with vomiting, unspecified; Z87.891 Personal history of nicotine dependence; C34.90 Malignant neoplasm of unspecified part of unspecified bronchus or lung; Z92.21 Personal history of antineoplastic chemotherapy; Z20.822 Contact with and (suspected) exposure to COVID-19
CPT/HCPCS: 87040 ×2; 87070; 85025; 80048; 36415; 82150; 82550; 85610; 82565; 80076; 87081; 83605; 85730; 84484; 82553; 83690; 84145; 0240U; 70450; 71260; 74177; 71045; 96360; 99284; Q9967; J7030; 81003; 81015; 93005

== ENCOUNTER → 2020-09-27 | Emergency (ER) | payer OTHER ==
[~2020-09-27] MED LIST: MORPHINE 4 MG/ML SYR ONE; ONDANSETRON 4 MG/2 ML VIAL ONE
--- OUTSIDE RECORDS SUMMARY | 2020-09-27 01:07 | XMS REPORT | Continuity of Care Document ---
:1960 Author Organization [facility] t Address [address] [place] [address] [address]. [address] [place] [address] Care Team Providers Name Role Phone Surekha Chiang Primary Care Physician Doctor Unassigned, Name Attending Clinician Unavailable Chelsi WIN Attending Clinician CORONA MÁRQUEZ Attending Clinician Unavailable CORONA MÁRQUEZ Admitting Clinician Unavailable Payers Payer Name Policy Type Policy Effective Date Expiration Date Sour ce Number [facility] [id number] 2020 [facility] ity of COMM PLAN - 00:00:00 [place] [facility] MANAGED Branch [place]UHC [place] STAR [id number]/2020-PresentMedic aid Problems Condition Condition Condition Status Onset Resolution Last Treating Co mments Source Name Details Category Date Date Treatment Clinician Date Obesity Obesity Disease Active 2020- Univers (BMI (BMI 1-07 ity of 30-39.9) 30-39.9) 00:00: [place] [address] Medical Branch Cerebellar Cerebellar Disease Active 2017-[address] [facility] 1-29 [facility] - 00:[facility]: [place] [address] Center Mass of Mass of Disease Active 2017-[address] [facility] right lung right lung 04-29 Gwen kes - 00:00: Medical 00 [place] Hydrocepha Hydrocepha Disease Active 2017-[address] mikie mikie 04-29 [facility] - [facility]: Medical 00 [place] Bandemia Bandemia Disease Active 2017-04 [facility] - 00:[facility]: Medical 00 [place] Allergies, Adverse Reactions, Alerts Allergy Allergy Status Severity Reaction(s) Onset Inactive Treating Comm ents Source Name Type Date Date Clinician Erythrom Propensi Active 2017-[address] ycin ty to 04-29 and [facility] - adverse 00:00: fever. Medical reaction 00 [place] s Macrolid Propensi Active Unknown - 2017-04 Uni vers e ty to See comments 04-24 ity of Antibiot adverse 00:00: [place] ics reaction 00 [facility] Erythrom Adverse Active Info Not [facility] Reaction Available [facility] Family History Family Member Diagnosis Comments Start Date Stop Date Source Natural father Coronary artery disease [facility] Natural father Diabetes [facility] Natural father Hypertension [facility] Natural mother Breast cancer [facility] Social History Social Habit Start Date Stop Date Quantity Comments Source Sex Assigned At [facility] Alcohol intake 2020-04-07 2020-04-07 Ex-drinker [facility] 00:00:00 00:00:00 (finding) [facility] [place] Tobacco use and 2018-03-27 2018-03-27 Never used [facility] - exposure 00:00:00 00:00:00 Medical Center History of 2003-07-01 Cigarette Smoker Universi ty of tobacco use 00:00:00 [facility] [place] Smoking Status Start Date Stop Date Source Former smoker 2018-03-27 00:00:00 2018-03-27 00:00:00 [facility] Medications Ordered Filled Start Stop Current Ordering Indication Dosage Frequency Signature Comments Components Source Medication Medication Date Date Medication? Clinician (SIG) Name Name Fluticasone Yes 1{puff} Take 1 U nivers -Salmeterol 04-07 Puff by ity o f 500-50 21:09: mouth. [place] mcg/dose 30 Medical inhalation Branch disk ferrous [...] hours. Topiramate Topiramate Yes Crista 1 tablet [facility] Immunizations Ordered Filled Immunization Date Status Comments [facility] e Immunization Name Name TDAP > 7 TDAP > 7 2019-10-[address] [facility] - Years-Adacel Years-Adacel 00:00:00 [facility] Outpatient Clinics Procedures Procedure Date / Time Performed Performing Clinician [facility] e REFERRAL- 2020-08-05 05:01:00 Doctor Unassigned, No [facility] REQUEST/RESPONSE Name Medical Branch Plan of Care Planned Activity Planned Date Details Comments Source Future Scheduled 2023-04-07 Screening for [facility] Test 00:00:00 malignant neoplasm of Medica l Branch cervix (procedure) [code = 500430042] Future Scheduled 2020-11-30 [facility]ACCINE [facility] Test 00:00:00 (Season Ended) [code = Medic al Branch INFLUENZA VACCINE (Season Ended)] Future Scheduled 2020-11-[address] [facility] - Test 00:00:00 (Season Ended) [code = Medic al Center INFLUENZA VACCINE (Season Ended)] Future Scheduled 2020-04-01 [facility]:00 (12+) [code = [facility] DEPRESSION SCREENING (12+)] Future Scheduled 2008 Screening for occult Uni [facility] Test 00:00:00 blood in feces Medical [facility] h (procedure) [code = 430708142] Future Scheduled 2008 Stool DNA-based [facility] Test 00:00:00 colorectal cancer Medical Br anch screening (procedure) [code = 231944028813650] Future Scheduled 2008 Flexible fiberoptic [facility] Test 00:00:00 sigmoidoscopy Medical Branch (procedure) [code = 43101225] Future Scheduled 2008 Screening for [facility] Test 00:00:00 malignant neoplasm of Medica l Branch colon (procedure) [code = 336244388] Future Scheduled 2008 Screening for [facility] Test 00:00:00 malignant neoplasm of Medica l Branch colon (procedure) [code = 339128594] Future Scheduled 2008 Zoster Recombinant [facility] Test 00:00:00 Vaccine (SHINGRIX) (1 Medica l Branch of 2) [code = Zoster Recombinant Vaccine (SHINGRIX) (1 of 2)] Future Scheduled 2008 SHINGLES VACCINES ([address] [facility] - Test 00:00:00 of 2) [code = SHINGLES Medic al Center VACCINES (1 of 2)] Future Scheduled [address] [facility] - Test 00:00:00 (procedure) [code = Medical Center 30262622] Future Scheduled 1998 Screening for [facility] [place] Test 00:00:00 malignant neoplasm of Medica l Branch breast (procedure) [code = 301490730] Future Scheduled [address] [facility] - Test 00:00:00 [facility] cervix (procedure) [code = 801009275] Future Scheduled 1977 DTaP,Tdap,and Td [facility] [place] Test 00:00:00 Vaccines (1 - Tdap) Medical Branch [code = DTaP,Tdap,and Td Vaccines (1 - Tdap)] Future Scheduled 1977 DTAP/TDAP/TD VACCINES [facility] Test 00:00:00 (1 - Tdap) [code = Medical C enter DTAP/TDAP/TD VACCINES (1 - Tdap)] Future Scheduled 1976 Hepatitis C screening [facility] [place] Test 00:00:00 (procedure) [code = Medical Branch 956270915] Future Scheduled 1976 HEPATITIS C SCREENING [facility] Test 00:00:00 [code = HEPATITIS C Medical Center SCREENING] Future Scheduled 1974 SARS-CoV-2 (COVID-19) [facility] [place] Test 00:00:00 Vaccine (1) [code = Medical Branch SARS-CoV-2 (COVID-19) Vaccine (1)] Future Scheduled 1970 Depression screening [facility] [place] Test 00:00:00 (procedure) [code = Medical Branch 669649264] Future Scheduled [address] [...] es - Test 00:00:00 [facility] breast (procedure) [code = 744052486] Future Scheduled [address] [facility] - Test 00:00:00 [facility] colon (procedure) [code = 362949638] Encounters Start End Encounter Admission Attending Care Care Encounter Source Date/Time Date/Time Type Type Clinicians Facility Department ID 2020-09-21 2020-09-21 [facility] [id number] [facility] 2020-09-02 2020-09-02 [facility] [id number] [facility] 2020-08-05 2020-08-05 Orders Doctor ZIMMERMAN [id number] 00:00:00 00:00:00 Only Unassigned, NUBIA [id number] [facility] [id number] 2020-08-02 2020-08-02 [facility] [id number] [facility] 2020-07-06 2020-07-06 [facility] [id number] [facility] 2020-07-04 2020-07-04 [facility] [id number] [facility] 2020-06-22 2020-06-22 [facility] [id number] [facility] 2020-06-16 2020-06-16 Outpatient [facility] [id number] [facility] 2020-05-23 2020-05-23 [facility] [id number] [facility] 2020-04-25 2020-04-25 Orders Doctor ERASMO [id number] 00:00:00 00:00:00 Only Unassigned, NUBIA [id number] [place] [facility] [id number] [id number] 2020-04-21 2020-04-21 Office LisandroronaldHEATHER gibsonBEBO [id number] 16:09:57 17:15:17 Visit Porsche Mcclure 350.1.13.10 [place] 4.2.7.2.686 Profjacob [id number] 2020-04-13 2020-04-13 Outpatient [facility] [id number] [facility] 2020-03-03 2020-03-03 Out[facility] [id number] [facility] 2020-03-02 2020-03-02 Out[facility] [id number] [facility] 2020-03-01 2020-03-01 Out[facility] [id number] [facility] 2020-01-20 2020-01-20 Outpatient [facility] [id number] [facility] 2020-01-14 2020-01-14 Outpatient [facility] [id number] [facility] 2020-01-12 2020-01-12 Outpatient [facility] [id number] [facility] 2019-12-18 2019-12-18 [facility] [id number] 18[facility]18:00 18:18:00 t Bennett [facility] Medicine Medicine Outpati ent Clinics 2019-12-11 2019-12-[address] [facility] [id number] 08:20:00 08:20:00 [facility] Outpati ent Clinics 2019-12-03 2019-12-03 Outpatient [facility] [id number] 10:27:00 10:27:00 [facility] Outpati ent Clinics 2019-11-30 2019-11-30 [facility] [id number] 09:40:00 09:40:00 [facility] Medicine Outpati ent Clinics 2019-10-21 2019-10-21 [facility] [id number] 14:40:00 14:40:00 [facility] Medicine Outpati ent Clinics 2019-08-25 2019-08-25 [facility] [id number] 10:40:00 10:40:00 [facility] Medicine Medicine Outpati ent Clinics 2019-06-16 2019-06-16 [facility] [id number] 18:08:00 18:08:00 [facility] Medicine Medicine Outpati ent Clinics 2019-05-26 2019-05-26 [facility] [id number] 13:00:00 13:00:[address] [facility] Medicine Medicine Outpati ent Clinics 2019-05-11 2019-05-11 [facility] [id number] 16:17:00 16:17:00 [facility] Medicine Medicine Outpati ent Clinics 2019-04-30 2019-04-30 [facility] [id number] 11:00:00 11:00:00 [facility] Medicine Medicine Outpati ent Clinics 2019-01-27 2019-01-27 [facility] [id number] 08:00:00 08:00:00 [facility] Outpati ent [facility] 2019-01-19 2019-01-19 [facility] [id number] 14:31:00 14:31:00 [facility] Outpati ent Clinics 2019-01-13 2019-01-13 [facility] [id number] 16:00:00 16:00:00 [facility] Outpati ent [facility] 2019-01-09 2019-01-09 [facility] [id number] 16:16:00 16:16:00 [facility] ent [facility] 2018-12-11 2018-12-11 [facility] [place] [facility] [id number] 11:00:00 11:00:00 [facility] ent [facility] Results Test Description Test Time Test Comments Results Result Sourc e Comments TISSUE EXAM 2018-05-24 Surgical Pathology Report 13:16:00 Case: [id number] Authorizing Provider: Robert Hightower MD Collected: 03/06/2018 1828 Ordering Location: [facility] Received: 03/07/2018 0900 SERVICES Pathologist: Blu Bowers MD Specimen: Tumor The following results were reported by [employer]. Please see attached reports.PD-L1 22C3 FDA analysis confirms HIGH EXPRESSIONBRAF gene rearrangement is NOT DETECTEDROS1 gene rearrangement is NOT DETECTEDALK gene rearrangement is NOT DETECTEDEGFR mutations in exons 18, 19, 20 T790M and other mutations, 21Addendum electronically signed by Blu Bowers MD on 05/24/2018 at 1:16 PMBRAIN, CEREBELLUM, CRANIOTOMY:METASTATIC ADENOCARCINOMA WITH FOCAL SQUAMOUS DIFFERENTIATION (SEE COMMENT) Signing Pathologist Direct Phone Line: [phone] y signed by Blu Bowers MD on [...] tumor cells. Tumor is negative for p63. 00251; 12133; 09048 x 6Cancer of cerebellumTumor of craniumThe specimen [...] Immunohistochemistry technical testing was performed at [facility], Pathology Laboratory where it was developed and [...] developed and its performance characteristics determined by [facility], Pathology Laboratory. It has not [...] Reference Range Interpretation Comme nts POC-GLUCOSE METER (Survival Media) (test 174 mg/dL 70-[address] [facility] [address] [facility] code = 1538) [facility] 7703 0 POCT-GLUCOSE [id number] 12:07:00 Test Item Value Reference Range Interpretation Comments POC-GLUCOSE METER 114 mg/dL 70-[address] [facility] 67[address] (Survival [employer]) (test code = [place] Bill [facility] 1538) [address] POCT-GLUCOSE [id number] 07:14:00 Test Item Value Reference Range Interpretation Comments POC-GLUCOSE METER 104 mg/dL 70-[address] [facility] 67[address] (BEAKER) (test code = [place] 1538) [address] BASIC METABOLIC [id number] 05:46:00 Test Item Value Reference Range Interpretation [...] ESTIMATED GFR. CBC W/PLT COUNT & AUTO [id number] 05:20:00 Test Item Value Reference Range Interpretation [...] PERCENT (BEAKER) (test code = 2801) POCT-GLUCOSE [id number] 21:30:00 Test Item Value Reference Range Interpretation Comments POC-GLUCOSE METER 111 mg/dL 70-110 H TESTED AT [place] [address] ([facility]) (test code = [facility] 1538) [address] POCT-GLUCOSE [id number] 18:19:00 Test Item Value Reference Range Interpretation Comments POC-GLUCOSE METER 175 mg/dL 70-110 H TESTED AT [place] [address] ([facility]) (test code = [facility] Landy [facility] 1538) [address] POCT-GLUCOSE [id number] 08:28:00 Test Item Value Reference Range Interpretation Comments POC-GLUCOSE METER 143 mg/dL 70-110 H TESTED AT [place] [address] ([facility]) (test code = [facility] 1683) [address] BASIC METABOLIC [id number] 06:32:00 Test Item Value Reference Range Interpretation [...] ESTIMATED GFR. CBC W/PLT COUNT & AUTO [id number] 06:29:00 Test Item Value Reference Range Interpretation [...] PERCENT (BEAKER) (test code = 2801) POCT-GLUCOSE [id number] 21:28:00 Test Item Value Reference Range Interpretation Comments POC-GLUCOSE METER 170 mg/dL 70-110 H TESTED AT [place] [address] ([facility]) (test code = [facility] Landy [facility] 1538) [address] POCT-GLUCOSE [id number] 18:02:00 Test Item Value Reference Range Interpretation Comments POC-GLUCOSE METER 180 mg/dL 70-110 H TESTED AT [place] [address] ([facility]) (test code = [facility] 1538) [address] POCT-GLUCOSE [id number] 13:34:00 Test Item Value Reference Range Interpretation Comments POC-GLUCOSE METER 235 mg/dL 70-110 H TESTED AT [place] [address] ([facility]) (test code = [facility] 1538) [address] MR, BRAIN, [id number] 12:29:00FINAL REPORT MRI Brain with and without [...] MDReport Verified Date/Time: 03/08/2018 12:29:16 Reading Location: [address] Neuro Reading Room W/PLT COUNT & AUTO [id number] 07:59:00 Test Item Value Reference Range Interpretation [...] Received comment: User comments: Slide comments:BASIC METABOLIC [id number] 04:18:00 Test Item Value Reference Range Interpretation [...] DATA TO CALCULA TE ESTIMATED GFR. POCT-GLUCOSE [id number] 23:21:00 Test Item Value Reference Range Interpretation Comments POC-GLUCOSE METER 122 mg/dL 70-[address] [facility] [address] [facility] (test code = [place] 1538) [address] POCT-GLUCOSE [id number] 22:02:00 Test Item Value Reference Range Interpretation Comments POC-GLUCOSE METER 122 mg/dL 70-[address] [facility] 67[address] ([facility] (test code = [place] 1538) [address] POCT-GLUCOSE [id number] 18:27:00 Test Item Value Reference Range Interpretation Comments POC-GLUCOSE METER 120 mg/dL 70-[address] [facility] 67[address] ([facility]) (test code = [place] 1538) [address] POCT-GLUCOSE [id number] 12:26:00 Test Item Value Reference Range Interpretation Comments POC-GLUCOSE METER 130 mg/dL 70-[address] [facility] 67[address] ([facility] (test code = [place] 1538) [address] POCT-GLUCOSE [id number] 08:44:00 Test Item Value Reference Range Interpretation Comments POC-GLUCOSE METER 141 mg/dL 70-[address] [facility] 67[address] (BEAKER) (test code = [place] 1538) [address] CBC W/PLT COUNT & AUTO [id number] 07:37:00 Test Item Value Reference Range Interpretation [...] Received comment: User comments: Slide comments:BASIC METABOLIC [id number] 04:29:00 Test Item Value Reference Range Interpretation [...] m DATA TO CALCULA TE ESTIMATED GFR. [id number] 04:28:00 Test Item Value Reference Range Interpretation Comments PHOSPHORUS (BEAKER) (test code = 3.4 mg/dL 2.3-4.7 604) [id number] 04:28:00 Test Item Value Reference Range Interpretation Comments MAGNESIUM (BEAKER) (test code = 1.9 mg/dL 1.6-2.6 627) POCT-GLUCOSE [id number] 22:29:00 Test Item Value Reference Range Interpretation Comments POC-GLUCOSE METER 147 mg/dL 70-110 H TESTED AT [place] [address] ([facility]) (test code = [place] 1538) [address] POCT-GLUCOSE [id number] 12:29:00 Test Item Value Reference Range Interpretation Comments POC-GLUCOSE METER 87 mg/dL 70-110 TESTED AT [place] [address] ([facility]) (test code = [place] [address] 1538) POCT-GLUCOSE [id number] 08:21:00 Test Item Value Reference Range Interpretation Comments POC-GLUCOSE METER 122 mg/dL 70-110 H TESTED AT [place] [address] ([facility]) (test code = [place] 1538) [address] [id number] 05:32:00 Test Item Value Reference Range Interpretation Comments PROTIME (BEAKER) (test code = 13.1 seconds 11.7-14.7 759) INR (BEAKER) (test code = 370) 1.0 <=5.9 PARTIAL THROMBOPLASTIN TIME 24.2 seconds 22.5-36.0 (BEAKER) (test code = 760) RECOMMENDED COUMADIN/WARFARIN INR THERAPY RANGESSTANDARD DOSE: 2.0 - 3.0 Includes: PROPHYLAXIS forvenous thrombosis, systemic embolization; TREATMENT for venous thrombosis and/or pulmonary embolus.HIGH RISK: Target INR is 2.5-3.5 for patients with mechanical heart valves.POCT-GLUCOSE [id number] 05:17:00 Test Item Value Reference Range Interpretation Comments POC-GLUCOSE METER 127 mg/dL 70-110 H TESTED AT [place] [address] ([facility]) (test code = [place] 1538) [address] BASIC METABOLIC [id number] 05:16:00 Test Item Value Reference Range Interpretation [...] ESTIMATED GFR. CBC W/PLT COUNT & AUTO [id number] 04:56:00 Test Item Value Reference Range Interpretation [...] PERCENT (BEAKER) (test code = 2801) POCT-GLUCOSE [id number] 22:07:00 Test Item Value Reference Range Interpretation Comments POC-GLUCOSE METER 157 mg/dL 70-110 H TESTED AT [place] [address] ([facility] (test code = RAFAELMO Landy [facility] 1538) [address] POCT-GLUCOSE [id number] 16:55:00 Test Item Value Reference Range Interpretation Comments POC-GLUCOSE METER 146 mg/dL 70-110 H TESTED AT [place] [address] ([facility]) (test code = [facility] 1538) [address] TISSUE [id number] 15:23:00Surgical Pathology Report Case: [id number] Authorizing Provider: Robert Tirado MD Collected: 03/04/2018916 Ordering Location: [facility] Received: 03/04/2018 0921 SERVICES Pathologist: Terry Stanford MD Specimens: A) - Lung, Right Upper Lobe, Right upper lobe endobronchial biopsy B) -Lung, Right Upper Lobe, EBBX. Reflex genetic markers. PART A RIGHT UPPER LOBE LUNG, ENDOBRONCHIAL BIOPSY:ADENOCARCINOMA.SEE DIAGNOSTIC COMMENT.PART B RIGHT UPPER LOBE LUNG, ENDOBRONCHIAL BIOPSY:ADENOCARCINOMA.SEE DIAGNOSTIC COMMENT. Signing Pathologist Direct Phone Line:[phone] signed by Terry Stanford MD on 03/05/2018 at 3:23 PMImmunohistochemical studies performed on block B1 demonstrate the tumor cells to be positive for TTF1 and Napsin A. They are negative for ER and PAX8. The immunoprofile is most compatible with an adenocarcinoma of pulmonary origin.55949y3, 31840, 60143a8, 73083K. Right upper lobe endobronchial biopsy. B. Right [...] stains. BLOCK B1- TTF1, NAPSIN A, ER, CRX7Hthelqcetyxptyfmknkq technical testing was performed at [facility], Pathology Laboratory where it was developed and [...] complexity clinical laboratory testing.FINE NEEDLE ASPIRATE BY [id number] 12:41:00Medical Cytology Report Case: [id number] Authorizing Provider: Robert Tirado MD Collected: 03/04/2018 1023 Ordering Location: [address] Received: 03/04/2018 1244 Service Pathologist: Ben Vila MD Specimen: Lymph Node, Interlobar, Right, Station 11R LYMPH NODE, INTERLOBAR RIGHT, STATION 11R EBUS FNA BY CLINICIAN (CYTOSPINS OF ASPIRATE): - NEGATIVE FOR MALIGNANCY - LYMPHOCYTES PRESENT Signing Pathologist Direct Phone Line: [phone] signed by Ben Garcia MD on 03/05/2018 at 12:41 PMPlease also see surgical pathology report [id number] and cytopathology reports [id number], 3646, 3647 and 3648. 26101Yhxb massLYMPH NODE, INTERLOBAR RIGHT, STATION 11R EBUS FNA40 mls in cytorich red; 2 cytospinsCollected: [id number]: [id number] interpretation of this case included the use of immunohistochemistry or special stains. Immunohistochemistry technical testing was performed at [facility], Pathology Laboratory where it was developed and [...] certified under the Clinical Laboratory Improvement Amendments hu9336 (CLIA-88) as qualified to perform high complexity clinical laboratory testing.[facility], Department of Pathology, [address] [place] [address], [facility], [address] [place] [address], [facility], [facility] of [facility], [address] [place] [address], [facility] NEEDLE ASPIRATE BY [id number] 12:40:00Medical Cytology Report Case: [id number] Authorizing Provider: Robert Tirado MD Collected: 03/04/2018 1008 Ordering Location: [address] Received: 03/04/2018 1244 Service Pathologist: Ben Vila MD Specimen: Lymph Node, Lower Paratracheal, Right, Station 4R LYMPH NODE, LOWER PARATRACHEAL, RIGHT, STATION 4R EBUS FNA BY CLINICIAN (CYTOSPINS AND CELL BLOCK OF ASPIRATE): - NEGATIVE FOR MALIGNANCY Signing Pathologist Direct Phone Line: [phone] signed by Ben Vila MD on 03/05/2018 at 12:40 PMSmears and cell block show good sampling of anthracotic lymph node without granuloma or neoplasm.Please also see surgical pathology report [id number] and cytopathology reports [id number], 3646, 3647 and 3649. [id number], [id number] massLYMPH NODE, LOWER PARATRACHEAL, RIGHT, STATION 4R EBUS FNA40 mls in cytorich red; 2 cytospins, cell blockCollected: [id number]: [id number] interpretation of this case included the use of immunohistochemistry or special stains. Immunohistochemistry technical testing was performed at [facility], Pathology Laboratory where it was developed and [...] to perform high complexity clinical laboratory testing.[facility], Department of Pathology, [address] [place] [address], [facility], [address] [place] [address], [facility], [facility] of Pathology, [address] [place] [address], DWNU NEEDLE ASPIRATE BY [id number] 12:38:00Medical Cytology Report Case: [id number] Authorizing Provider: Robert Tirado MD Collected: 03/04/2018 1002 Ordering Location: [address] Received: 03/04/2018 1244 Service Pathologist: Ben Vila MD Specimen: Lymph Node, Subcarinal, Station 7 LYMPH NODE, SUBCARINAL, STATION 7 EBUS FNA BY CLINICIAN (CYTOSPINS AND CELL BLOCK OF ASPIRATE): - NEGATIVE FOR MALIGNANCY Signing Pathologist Direct Phone Line: [phone] signed by Ben Vila MD on 03/05/2018 at 12:38 PMSmears and cell block show good sampling of anthracotic lymph nodewithout granuloma or neoplasm.Please also see surgical pathology report [id number] and cytopathology reports [id number], 3646, 3648 and 3649. 73909, 64194Kbgx massLYMPH NODE, SUBCARINAL, STATION 7 FNAPrepared cell block(A2) and 2 cytospins from 40 ml cytorich red fixative specimen Collected: [id number]: [id number] interpretation of this case included the use of immunohistochemistry or special stains.Immunohistochemistry technical testing was performed at [facility], Pathology L aboratory where it was developed [...] to perform high complexity clinical laboratory testing.[facility], Department of Pathology, [address] [place] [address], [facility], Department of Path[facility], [address] [place] [address], [facility], Department of Pathology, [address] [place] [address], QILO NEEDLE ASPIRATE BY [id number] 12:35:00Medical Cytology Report Case: [id number] Authorizing Provider: Robert Tirado MD Collected: 03/04/2018 1001 Ordering Location: [address] Received: 03/04/2018 1244 Service Pathologist: Ben Vila MD Specimen: Lymph Node, Lower Paratracheal, Left, Station 4L LYMPH NODE, LOWER PARATRACHEAL, LEFT, STATION 4L, FNA BY CLINICIAN (CYTOSPINS OF ASPIRATE): - NEGATIVE FOR MALIGNANCY PREDOMINANTLY BRONCHIAL EPITHELIAL CELLS Signing Pathologist Direct Phone Line: [phone] signed by Ben Vila MD on 03/05/2018 at 12:35 PMPlease also see surgical pathology report [id number] and cytopathology reports [id number], 3647, 3648 and 3649. 10499Dqsp massLYMPH NODE, LOWER PARATRACHEAL, LEFT, STATION 4L FNAPrepared 2 cytospins from 40 ml cytorich red fixative sampleCollected: [id number]: [id number] interpretation of this case included the use of immunohistochemistry or special stains. Immunohistochemistry technical testing was performed at [facility], Pathology Laboratory where it was developed and [...] to perform high complexity clinical laboratory testing.[facility], Department of Pathology, [address] [place] [address], [facility], Department of Patho logy, [address] [place] [address], WavekwSc[facility], Department of Pathology, [address] [place] [address], TCQH-GLUCOSE [id number] 12:34:00 Test Item Value Reference Range Interpretation Comments POC-GLUCOSE METER 119 mg/dL 70-110 H TESTED AT [place] [address] (NEENA) (test code = SHE[place] Bill [place] [id number]) [address] FINE NEEDLE ASPIRATE BY [id number] 12:34:00Medical Cytology Report Case: [id number] Authorizing Provider: Robert Tirado MD Collected: 03/04/2018 1001 Ordering Location: [address] Received: 03/04/2018 1244 Service Pathologist: Ben Vila MD Specimen: Lymph Node, Interlobar, Left, Station 11L LYMPH NODE, INTERLOBAR, LEFT, STATION 11L, FNA BY CLINICIAN (CYTOSPINS AND CELL BLOCK OF ASPIRATE): - NEGATIVE FOR MALIGNANCY Signing Pathologist Direct Phone Line: [phone] signed by Ben Vila MD on 03/05/2018 at 12:34 PMSmears and cell block show good sampling of anthracotic lymph node without granuloma or neoplasm.Please also see surgical pathology report [id number] and cytopathology reports [id number], 3647, 3648 and 3649. 69857, 40324Wbmq massLYMPH NODE, INTERLOBAR, LEFT, [id number] FNAPrepared cell block(A2) and 2 cytospins from 45 ml cytorich red fixative sampleCollected: [id number]: [id number] interpretation of this case included the use of immunohistochemistry or special stains. Immunohistochemistry technical testing was performed at [facility], Pathology Laboratory where it was developed and [...] to perform high complexity clinical laboratory testing.[facility], Department of Pathology, [address] [place] [address], [facility], Department of Pathology, [address] [place] [address], [facility]lgeblSc[facility], Department of Pathology, [address] [place] [address], TKRV-GLUCOSE [id number] 08:25:00 Test Item Value Reference Range Interpretation Comments POC-GLUCOSE METER 114 mg/dL 70-110 H TESTED AT [place] [address] (BEAKER) (test code = [facility] 153) [address] BASIC METABOLIC [id number] 05:45:00 Test Item Value Reference Range Interpretation [...] ESTIMATED GFR. CBC W/PLT COUNT & AUTO [id number] 05:42:00 Test Item Value Reference Range Interpretation [...] 0-1 PERCENT (AKER) (test code = 2801) BLOOD [id number] 23:01:00 Test Item Value Reference Range Interpretation Comments CULTURE ([facility]) (test No growth in 5 days code = 1095) POCT-GLUCOSE [id number] 20:32:00 Test Item Value Reference Range Interpretation Comments POC-GLUCOSE METER 122 mg/dL 70-110 H TESTED AT [place] [address] ([facility]) (test code = [facility] 1538) [address] POCT-GLUCOSE [id number] 17:53:00 Test Item Value Reference Range Interpretation Comments POC-GLUCOSE METER 199 mg/dL 70-110 H TESTED AT [place] [address] ([facility]) (test code = [facility] 1538) [address] EBUS FNA [id number] 14:00:00 Test Item Value Reference Range Interpretation Comments CYTOLOGY RESULT POINTER See Separate Report (BEAKER) (test code = 2629) EBUS FNA [id number] 14:00:00 Test Item Value Reference Range Interpretation Comments CYTOLOGY RESULT POINTER See Separate Report (BEAKER) (test code = 2629) EBUS FNA [id number] 14:00:00 Test Item Value Reference Range Interpretation Comments CYTOLOGY RESULT POINTER See Separate Report (BEAKER) (test code = 2629) EBUS FNA [id number] 14:00:00 Test Item Value Reference Range Interpretation Comments CYTOLOGY RESULT POINTER See Separate Report (BEAKER) (test code = 2629) EBUS FNA [id number] 14:00:00 Test Item Value Reference Range Interpretation Comments CYTOLOGY RESULT POINTER See Separate Report ([facility]) (test code = 2629) POCT-GLUCOSE [id number] 12:06:00 Test Item Value Reference Range Interpretation Comments POC-GLUCOSE METER 114 mg/dL 70-[address] [facility] [address] ([facility]) (test code = [place] 1538) [address] BLOOD [id number] 10:00:00 Test Item Value Reference Range Interpretation Comments CULTURE ([facility]) (test No growth in 5 days code = 1095) POCT-GLUCOSE [id number] 08:22:00 Test Item Value Reference Range Interpretation Comments POC-GLUCOSE METER 120 mg/dL 70-[address] [facility] [address] ([facility]) (test code = [place] 1538) [address] [id number] 06:39:00 Test Item Value Reference Range Interpretation Comments PARTIAL THROMBOPLASTIN TIME 25.2 seconds 22.5-36.0 (AKER) (test code = 760) PROTHROMBIN [id number] 06:38:00 Test Item Value Reference Range Interpretation Comments PROTIME (BEAKER) (test code = 13.6 seconds 11.7-14.7 759) INR (AKER) (test code = 370) 1.0 <=5.9 RECOMMENDED COUMADIN/WARFARIN INR THERAPY RANGESSTANDARD DOSE: 2.0 - 3.0 Includes: PROPHYLAXIS forvenous thrombosis, systemic embolization; TREATMENT for venous thrombosis and/or pulmonary embolus.HIGH RISK: Target INR is 2.5-3.5 for patients with mechanical heart valves.BASIC METABOLIC [id number] 06:38:00 Test Item Value Reference Range Interpretation [...] ESTIMATED GFR. CBC W/PLT COUNT & AUTO [id number] 06:19:00 Test Item Value Reference Range Interpretation [...] IMMATURE GRANULOCYTES-RELATIVE 2 % 0-1 H PERCENT ([facility]) (test code = 2801) POCT-GLUCOSE [id number] 22:29:00 Test Item Value Reference Range Interpretation Comments POC-GLUCOSE METER 175 mg/dL 70-110 H TESTED AT [place] [address] ([facility]) (test code = [facility] 1538) [address] BONE AND/OR JOINT IMAGING, WHOLE [id number] 15:34:00No histologic dx yet, but brain met with lung mass.FINAL REPORT PROCEDURE: BONE SCAN, WHOLE BODY CPT CODE: 39992 INDICATION: Right lung cancer with cerebellar metastasis [...] MDReport Verified Date/Time: 03/03/2018 15:34:30 Reading Location: [address] [place] [address] Reading Room POCT-GLUCOSE [id number] 11:44:00 Test Item Value Reference Range Interpretation Comments POC-GLUCOSE METER 180 mg/dL 70-110 H TESTED AT [place] [address] ([facility]) (test code = [facility] 1538) [address] POCT-GLUCOSE [id number] 08:31:00 Test Item Value Reference Range Interpretation Comments POC-GLUCOSE METER 111 mg/dL 70-110 H TESTED AT [facility] 6720 (BEAKER) (test code = [place] 1538) [address] CBC W/PLT COUNT & AUTO [id number] 05:37:00 Test Item Value Reference Range Interpretation [...] PERCENT (BEAKER) (test code = 2801) POCT-GLUCOSE [id number] 21:27:00 Test Item Value Reference Range Interpretation Comments POC-GLUCOSE METER 202 mg/dL 70-110 H TESTED AT [place] [address] (BEAKER) (test code = [facility] 1538) [address] POCT-GLUCOSE [id number] 13:34:00 Test Item Value Reference Range Interpretation Comments POC-GLUCOSE METER 94 mg/dL 70-110 TESTED AT [place] [address] ([facility]) (test code = [facility] [address] 1538) POCT-GLUCOSE [id number] 08:43:00 Test Item Value Reference Range Interpretation Comments POC-GLUCOSE METER 118 mg/dL 70-110 H TESTED AT [place] [address] ([facility]) (test code = [facility] 1538) [address] URINALYSIS W/ REFLEX URINE [id number] 07:40:00 Test Item Value Reference Range Interpretation [...] code = 516) SOURCE(BEAKER) (test code = 9455) BASIC METABOLIC [id number] 07:17:00 Test Item Value Reference Range Interpretation [...] ESTIMATED GFR. CBC W/PLT COUNT & AUTO [id number] 06:15:00 Test Item Value Reference Range Interpretation [...] PERCENT (BEAKER) (test code = 2801) POCT-GLUCOSE [id number] 21:08:00 Test Item Value Reference Range Interpretation Comments POC-GLUCOSE METER 175 mg/dL 70-110 H TESTED AT [place] [address] ([facility]) (test code = [place] 1538) [address] POCT-GLUCOSE [id number] 17:48:00 Test Item Value Reference Range Interpretation Comments POC-GLUCOSE METER 114 mg/dL 70-110 H TESTED AT [place] [address] ([facility]) (test code = [place] 1538) [address] POCT-GLUCOSE [id number] 12:27:00 Test Item Value Reference Range Interpretation Comments POC-GLUCOSE METER 119 mg/dL 70-110 H TESTED AT [place] [address] ([facility]) (test code = [place] 1538) [address] BASIC METABOLIC [id number] 08:12:00 Test Item Value Reference Range Interpretation [...] ESTIMATED GFR. CBC W/PLT COUNT & AUTO [id number] 07:21:00 Test Item Value Reference Range Interpretation [...] PERCENT (BEAKER) (test code = 2801) POCT-GLUCOSE [id number] 06:08:00 Test Item Value Reference Range Interpretation Comments POC-GLUCOSE METER 113 mg/dL 70-110 H TESTED AT [place] [address] ([facility]) (test code = [facility] 1538) [address] POCT-GLUCOSE [id number] 18:58:00 Test Item Value Reference Range Interpretation Comments POC-GLUCOSE METER 117 mg/dL 70-110 H TESTED AT [place] [address] ([facility]) (test code = [facility] 1538) [address] CT, CHEST, WITH [id number] 15:20:00FINAL REPORT CT of the Chest, abdomen [...] MDReport Verified Date/Time: 02/28/2018 15:20:36 Reading Location: [facility] C013Y CT Body Reading Room CT, [id number] 15:20:00FINAL REPORT CT of the Chest, abdomen [...] MDReport Verified Date/Time: 02/28/2018 15:20:36 Reading Location: [address] Body Reading Room POCT-GLUCOSE [id number] 08:55:00 Test Item Value Reference Range Interpretation Comments POC-GLUCOSE METER 125 mg/dL 70-110 H TESTED AT [place] [address] ([facility]) (test code = [place] 1538) [address] MR, BRAIN, [id number] 07:59:00STEALTH protocolFINAL REPORT MRI Brain with and [...] MDReport Verified Date/Time: 02/28/2018 07:59:07 Reading Location: [address] Neuro Reading Room POCT- GLUCOSE [id number] 06:39:00 Test Item Value Reference Range Interpretation Comments POC-GLUCOSE METER 150 mg/dL 70-[address] [facility] 67[address] (BEAKER) (test code = [place] 1538) [address] BASIC METABOLIC [id number] 05:51:00 Test Item Value Reference Range Interpretation [...] ESTIMATED GFR. CBC W/PLT COUNT & AUTO [id number] 04:09:00 Test Item Value Reference Range Interpretation [...] 417) IMMATURE GRANULOCYTES-RELATIVE 1 % 0-1 PERCENT ([facility]) (test code = 2801) POCT-GLUCOSE [id number] 00:17:00 Test Item Value Reference Range Interpretation Comments POC-GLUCOSE METER 122 mg/dL 70-110 H TESTED AT [place] [address] ([facility]) (test code = [facility] 1538) [address] POCT-GLUCOSE [id number] 18:35:00 Test Item Value Reference Range Interpretation Comments POC-GLUCOSE METER 134 mg/dL 70-110 H TESTED AT [place] [address] ([facility]) (test code = [facility] 1538) [address] POCT-GLUCOSE [id number] 12:10:00 Test Item Value Reference Range Interpretation Comments POC-GLUCOSE METER 146 mg/dL 70-110 H TESTED AT [place] [address] ([facility]) (test code = [facility] 1538) [address] [id number] 07:56:00 Test Item Value Reference Range Interpretation Comments PROCALCITONIN (AKER) (test code = < ng/mL <0.05 3036) SEPSIS RISK (ng/mL)Low: 0.05-0.50Intermediate: 0.51-2.00High: >=2.01LACTATE DEHYDROGENASE (LDH)2018-02-27 06:52:00 Test Item Value Reference Range Interpretation Comments LACTATE DEHYDROGENASE (AKER) (test 146 U/L 125-220 code = 635) C-REACTIVE [id number] 06:52:00 Test Item Value Reference Range Interpretation Comments C-REACTIVE PROTEIN (BEAKER) (test 8.22 mg/dL 0.00-0.50 H code = 676) LACTIC ACID, ARTERIAL, WHOLE [id number] 06:01:00 Test Item Value Reference Range Interpretation Comments LACTATE BLOOD ARTERIAL (2) 1.0 mmol/L 0.5-2.2 (AKER) (test code = 2874) BASIC METABOLIC [id number] 05:52:00 Test Item Value Reference Range Interpretation [...] DATA TO CALCULA TE ESTIMATED GFR. TROPONIN [id number] 05:48:00 Test Item Value Reference Range Interpretation Comments TROPONIN I (BEAKER) (test code = 397) < ng/mL 0.00-0.03 [id number] 05:43:00 Test Item Value Reference Range Interpretation Comments MAGNESIUM (BEAKER) 2.1 mg/dL 1.6-2.6 Specimen slightly (test code = 627) hemolyzed [id number] 05:43:00 Test Item Value Reference Range Interpretation Comments PHOSPHORUS (BEAKER) 4.1 mg/dL 2.3-4.7 Specimen slightly (test code = 604) hemolyzed CBC W/PLT COUNT & AUTO [id number] 05:34:00 Test Item Value Reference Range Interpretation [...] PERCENT (BEAKER) (test code = 2801) POCT-GLUCOSE [id number] 05:32:00 Test Item Value Reference Range Interpretation Comments POC-GLUCOSE METER 118 mg/dL 70-[address] [facility] 6720 (BEAKER) (test code = [place] 1538) [address] [id number] 05:20:00 Test Item Value Reference Range Interpretation [...] 2.5-3.5 for patients with mechanical heart valves.PROTHROMBIN TIME/[id number] 05:19:00 Test Item Value Reference Range Interpretation [...]
[2020-09-27 04:22] LABS: Absolute Lymphocytes (CBC) 3.1 K/uL (0.7-4.9); Hematocrit 34.1 % (36.0-45.0); Lymphocytes % 21.8 % (15.3-44.8); MPV 6.9 fL (7.6-11.3); RBC Red Blood Cell Count 3.98 M/uL (3.86-4.86)
[2020-09-27 04:50] LABS: Blood Morphology Comment NOT SEEN (NOT SEEN); Platelet Estimate INCR
[2020-09-27 05:00] LABS: BUN Blood Urea Nitrogen 4 mg/dL (7-18); Bicarbonate 29 mmol/L (21-32); Glucose Level 100 mg/dL (74-106); Magnesium 2.1 mg/dL (1.8-2.4); NT PRO-BNP 118 pg/mL (<125); Potassium 3.5 mmol/L (3.5-5.1); Sodium Level 136 mmol/L (136-145); Troponin (Emerg Dept Use Only) < 0.02 ng/mL (0.0-0.045)
[2020-09-27 05:01] LABS: CKMB Creatine Kinase MB < 1.0 ng/mL (1.0-3.6)
--- NOTE | 2020-09-27 07:16 | RAD REPORT ---
EXAM DESCRIPTION: RAD - Chest Pa And Lat (2 Views) - 09/27/2020 4:38 am CLINICAL HISTORY: routinemass lesion right upper lobe COMPARISON: CT chest August 27, portable chest August 27 TECHNIQUE: Frontal and lateral views of the chest were obtained. FINDINGS: The lungs are normal volume. Left lung field is clear. Lower right lung field is clear. Patient has a known mass in the right upper lung field. Overall increased density is seen in the medi al right apex with smooth curvilinear lateral margin. This would indicate postobstructive atelectasis . Trachea remains midline. Heart size is normal and central vasculature is within normal limits. No pleural effusion or pneumothorax seen. No acute bony finding noted. No aortic abnormality. IMPRESSION: Postobstructive atelectasis in the right upper lung field around a known right upper lob e mass.
--- NOTE | 2020-09-27 09:10 | RAD REPORT ---
EXAM DESCRIPTION: US - Extrem Venous W Compress Vincent - 09/27/2020 8:13 am CLINICAL HISTORY: r/o dvtbilateral leg pain and swelling COMPARISON: None. TECHNIQUE: Real-time sonographic evaluation of the bilateral lower extremity common femoral, superfi cial femoral, popliteal and posterior tibial veins was performed. FINDINGS: Normal compressibility, flow augmentation, phasic flow and spontaneous flow are identified in the left and right lower extremity common femoral, superficial femoral, popliteal and posterior t ibial veins. No intraluminal filling defects seen. IMPRESSION: No DVT in either lower extremity.
--- NOTE | 2020-09-28 16:39 | EKG ---
Test Date: 2020-09-27 Test Time: 04:13:25 Fuel Technician: TLT MEASUREMENT RESULTS: Intervals: Rate: 86 WA: 140 QRSD: 86 QT: 400 QTc: 478 Perry: P: 39 WA: 140 QRS: 15 T: 47 INTERPRETIVE STATEMENTS: Normal sinus rhythm Normal ECG Compared to ECG 08/27/2020 15:15:19 T-wave abnormality no longer present Prolonged QT interval no longer present Electronically Signed On 09-28-20 16:33:25 CDT by Wili Becker
== END ==
LOC: ER 01:02
DX: L03.116 Cellulitis of left lower limb (principal); L03.115 Cellulitis of right lower limb; Z85.118 Personal history of other malignant neoplasm of bronchus and lung
CPT/HCPCS: 93005; 85025; 80048; 36415; 83735; 85730; 85652; 84484; 82553; 83880; 86140; 71046; 93970; J2405

== ENCOUNTER 2020-10-22 09:57 | Observation (INO) | payer OTHER ==
--- OUTSIDE RECORDS SUMMARY | 2020-10-22 10:02 | XMS REPORT | Continuity of Care Document ---
:1960 Author Organization [facility] t Address [address] [place] [address] [address]. [address] [place] [address] Care Team Providers Name Role Phone Surekha Chiang Primary Care Physician Doctor Unassigned, Name Attending Clinician Unavailable Chelsi WIN Attending Clinician CORONA MÁRQUEZ Attending Clinician Unavailable CORONA MÁRQUEZ Admitting Clinician Unavailable Payers Payer Name Policy Type Policy Effective Date Expiration Date Sour ce Number [facility] [id number] 2020 [facility] ity of COMM PLAN - 00:00:00 [place] [facility] MANAGED [facility] [place]AR [id number]/2020-PresentMedic aid Problems Condition Condition Condition Status Onset Resolution Last Treating Co mments Source Name Details Category Date Date Treatment Clinician Date Obesity Obesity Disease Active 2020- Univers (BMI (BMI 1-07 ity of 30-39.9) 30-39.9) 00:00: [place] [address] Medical Branch Cerebellar Cerebellar Disease Active 2017-[address] [facility] mass 1-29 [facility] - 00:[facility]: [place] [address] Center Mass of Mass of Disease Active 2017-[address] [facility] right lung right lung 04-29 Gwen kes - 00:00: Medical 00 [place] Hydrocepha Hydrocepha Disease Active 2017-[address] mikie mikie 04-29 [facility] Medical 00 [place] Bandemia Bandemia Disease Active 2017-04 [facility] - [facility]: Medical 00 [place] Allergies, Adverse Reactions, Alerts Allergy Allergy Status Severity Reaction(s) Onset Inactive Treating Comm ents Source Name Type Date Date Clinician Erythrom Propensi Active 2017-[address] ycin ty to 04-29 and [facility] - adverse 00:00: fever. Medical reaction 00 [place] s Macrolid Propensi Active Unknown - 2017-04 Uni vers e ty to See comments 04-24 ity of Antibiot adverse 00:00: [place] ics reaction 00 [facility] Erythrom Adverse Active Info Not [facility] Reaction Available [facility] Family History Family Member Diagnosis Comments Start Date Stop Date Source Natural father Coronary artery disease [facility] Natural father Diabetes [facility] Natural father Hypertension [facility] Natural mother Breast cancer [facility] Social History Social Habit Start Date Stop Date Quantity Comments Source Sex Assigned [facility] Alcohol intake 2020-04-07 2020-04-07 Ex-drinker [facility] 00:00:00 00:00:00 (finding) [facility] Tobacco use and 2018-03-27 2018-03-27 Never used [facility] - exposure 00:00:00 00:00:00 Medical Center History of 2003-07-01 Cigarette Smoker Universi ty of tobacco use 00:00:00 [facility] Smoking Status Start Date Stop Date Source Former smoker 2018-03-27 00:00:00 2018-03-27 00:00:00 [facility] Medications Ordered Filled Start Stop Current Ordering Indication Dosage Frequency Signature Comments Components Source Medication Medication Date Date Medication? Clinician (SIG) Name Name Fluticasone Yes 1{puff} Take 1 U nivers -Salmeterol 04-07 Puff by ity o f 500-50 21:09: mouth. [place] mcg/dose 30 Medical inhalation Branch disk ferrous [...] hours. Topiramate Topiramate Yes Crista 1 tablet [facility] Immunizations Ordered Filled Immunization Date Status Comments [facility] e Immunization Name Name TDAP > 7 TDAP > 7 2019-10-[address] [facility] - Years-Adacel Years-Adacel 00:00:00 [facility] Outpatient Clinics Procedures Procedure Date / Time Performed Performing Clinician [facility] e REFERRAL- 2020-08-05 05:01:00 Doctor Unassigned, No [facility] REQUEST/RESPONSE Name Medical Branch Plan of Care Planned Activity Planned Date Details Comments Source Future Scheduled 2023-04-07 Screening for [facility] Test 00:00:00 malignant neoplasm of Medica l Branch cervix (procedure) [code = 168530811] Future Scheduled 2020-11-30 [facility] Test 00:00:00 (Season Ended) [code = Medic al Branch INFLUENZA VACCINE (Season Ended)] Future Scheduled 2020-11-[address] [facility] - Test 00:00:00 (Season Ended) [code = Medic al Center INFLUENZA VACCINE (Season Ended)] Future Scheduled 2020-04-01 [facility]:00 (12+) [code = [facility] Center DEPRESSION SCREENING (12+)] Future Scheduled 2008 Screening for occult Uni [facility] Test 00:00:00 blood in feces Medical [facility] h (procedure) [code = 990314597] Future Scheduled 2008 Stool DNA-based [facility] Test 00:00:00 colorectal cancer Medical Br anch screening (procedure) [code = 094687704063051] Future Scheduled 2008 Flexible fiberoptic [facility] Test 00:00:00 sigmoidoscopy Medical Branch (procedure) [code = 29277555] Future Scheduled 2008 Screening for [facility] Test 00:00:00 malignant neoplasm of Medica l Branch colon (procedure) [code = 618826689] Future Scheduled 2008 Screening for [facility] Test 00:00:00 malignant neoplasm of Medica l Branch colon (procedure) [code = 545885289] Future Scheduled 2008 Zoster Recombinant [facility] Test 00:00:00 Vaccine (SHINGRIX) (1 Medica l Branch of 2) [code = Zoster Recombinant Vaccine (SHINGRIX) (1 of 2)] Future Scheduled 2008 SHINGLES VACCINES ([address] [facility] - Test 00:00:00 of 2) [code = SHINGLES Medic al Center VACCINES (1 of 2)] Future Scheduled [address] - Test 00:00:00 (procedure) [code = Medical Center 96894393] Future Scheduled 1998 Screening for [facility] [place] Test 00:00:00 malignant neoplasm of Medica l Branch breast (procedure) [code = 036509049] Future Scheduled [address] [facility] - Test 00:00:00 [facility] cervix (procedure) [code = 548242196] Future Scheduled 1977 DTaP,Tdap,and Td Univers ity [...] Test 00:00:00 (procedure) [code = Medical Branch 196103289] Future Scheduled 1976 HEPATITIS C SCREENING [facility] Test 00:00:00 [code = HEPATITIS C Medical Center SCREENING] Future Scheduled 1974 SARS-CoV-2 (COVID-19) [facility] [place] Test 00:00:00 Vaccine (1) [code = Medical Branch SARS-CoV-2 (COVID-19) Vaccine (1)] Future Scheduled 1970 Depression screening [facility] [place] Test 00:00:00 (procedure) [code = Medical Branch 017056434] Future Scheduled [address] [...] es - Test 00:00:00 [facility] breast (procedure) [code = 383765610] Future Scheduled [address] [facility] - Test 00:00:00 [facility] colon (procedure) [code = 118733237] Encounters Start End Encounter Admission Attending Care Care Encounter Source Date/Time Date/Time Type Type Clinicians Facility Department ID 2020-09-26 2020-09-26 Outpatient [facility] [id number] [facility] 2020-09-21 2020-09-21 Outpatient [facility] [id number] [facility] 2020-09-02 2020-09-02 Outpatient [facility] [id number] [facility] 2020-08-05 2020-08-05 Orders Doctor ERASMO [id number] 00:00:00 00:00:00 Only Unassigned, NUBIA [id number] [place] [facility] [id number] 2020-08-02 2020-08-02 Outpatient [facility] [id number] [facility] 2020-07-06 2020-07-06 Outpatient [facility] [id number] [facility] 2020-07-04 2020-07-04 Outpatient [facility] [id number] [facility] 2020-06-22 2020-06-22 Outpatient [facility] [id number] [facility] 2020-06-16 2020-06-16 Outpatient [facility] [id number] [facility] 2020-05-23 2020-05-23 Outpatient [facility] [id number] [facility] 2020-04-25 2020-04-25 Orders Doctor ZIMMERMAN [id number] 00:00:00 00:00:00 Only Unassigned, NUBIA [id number] [facility] [id number] [id number] 2020-04-21 2020-04-21 Office Chelsi, NHBEBO [id number] 16:09:57 17:15:17 Visit Porsche Kami [id number] [place] 4.2.7.2.686 Profjacob [id number] [address] 2020-04-13 2020-04-13 Outpatient [facility] [id number] [facility] 2020-03-03 2020-03-03 Outpatient [facility] [id number] [facility] 2020-03-02 2020-03-02 Outpatient [facility] [id number] [facility] 2020-03-01 2020-03-01 Outpatient [facility] [id number] [facility] 2020-01-20 2020-01-20 Outpatient [facility] [id number] [facility] 2020-01-14 2020-01-14 Outpatient [facility] [id number] [facility] 2020-01-12 2020-01-12 Outpatient [facility] [id number] [facility] 2019-12-18 2019-12-18 [facility] [id number] 18:18:00 18:18:00 [facility] Medicine Medicine Outpati ent Clinics 2019-12-11 2019-12-[address] [facility] [id number] 08[facility]20:00 08:20:[address] [facility] Medical [facility] Outpat[facility] Clinics 2019-12-03 2019-12-[address] [facility] [id number] 10:27:00 10:27:[address] [facility] Outpati [facility] Clinics 2019-11-30 2019-11-30 [facility] [id number] 09:40:00 09:40:00 [facility] Medicine Outpati ent Clinics 2019-10-21 2019-10-21 [facility] [id number] 14:40:00 14:40:00 [facility] Medicine Medicine Outpati ent Clinics 2019-08-25 2019-08-25 [facility] [id number] 10:40:00 10:40:00 [facility] Medicine l Medicine Outpati ent Clinics 2019-06-16 2019-06-16 [facility] [id number] 18:08:00 18:08:00 [facility] Medicine Medicine Outpati ent Clinics 2019-05-26 2019-05-26 [facility] [id number] 13:00:00 13:00:00 [facility] Medicine Medicine Outpati ent Clinics 2019-05-11 2019-05-11 [facility] [id number] 16:17:00 16:17:00 [facility] Medicine Medicine Outpati ent Clinics 2019-04-30 2019-04-30 [facility] [id number] 11:00:00 11:00:00 [facility] Outpati ent Clinics 2019-01-27 2019-01-27 [facility] [id number] 08:00:00 08:00:00 [facility] Outpati ent Clinics 2019-01-19 2019-01-19 [facility] [id number] 14:31:00 14:31:00 [facility] Outpati ent Clinics 2019-01-13 2019-01-13 [facility] [id number] 16:00:00 16:00:00 [facility] Out[facility] ent Clinics 2019-01-09 2019-01-09 [facility] [id number] 16:16:00 16:16:00 [facility] Out[facility] ent Clinics 2018-12-11 2018-12-11 [facility] [id number] 11:00:00 11:00:00 [facility] Results Test Description Test Time Test Comments Results Result Sour e Comments TISSUE EXAM 2018-05-24 Surgical Pathology Report 13:16:00 Case: [id number] Authorizing Provider: Robert Hightower MD Collected: 03/06/2018 1828 Ordering Location: [facility] Received: 03/07/2018 0900 SERVICES Pathologist: Blu Bowers MD Specimen: Tumor The following results were reported by [employer]. Please see attached reports.PD-L1 22C3 FDA analysis confirms HIGH EXPRESSIONBRAF gene rearrangement is NOT DETECTEDROS1 gene rearrangement is NOT DETECTEDALK gene rearrangement is NOT DETECTEDEGFR mutations in exons 18, 19, 20 T790M and other mutations, 21Addendum electronically signed by Blu Bowers MD on 05/24/2018 at 1:16 PMBRAIN, CEREBELLUM, CRANIOTOMY:METASTATIC ADENOCARCINOMA WITH FOCAL SQUAMOUS DIFFERENTIATION (SEE COMMENT) Signing Pathologist Direct Phone Line: [phone] y signed by Blu Bowers MD on [...] tumor cells. Tumor is negative for p63. 36159; 57311; 64878 x 6Cancer of cerebellumTumor of craniumThe specimen [...] stains. Immunohistochemistry technical testing was performed at [facility], Pathology Laboratory where it was [...] developed and its performance characteristics determined by [facility], Pathology Laboratory. It has not been [...] Test Item Value Reference Range Interpretation Comme [facility] POC-GLUCOSE METER (BEAKER) (test 174 mg/dL 70-[address] [facility] [address] code = 1538) [facility] 7703 0 POCT-GLUCOSE [id number] 12:07:00 Test Item Value Reference Range Interpretation Comments POC-GLUCOSE METER 114 mg/dL 70-[address] [facility] [address] (BEAKER) (test code = SHELLY Bill [place] 1538) [address] POCT-GLUCOSE [id number] 07:14:00 Test Item Value Reference Range Interpretation Comments POC-GLUCOSE METER 104 mg/dL 70-[address] [facility] [address] (BEAKER) (test code = SHE[place] 1538) [address] BASIC METABOLIC [id number] 05:46:00 Test Item Value Reference Range Interpretation [...] ESTIMATED GFR. CBC W/PLT COUNT & AUTO [id number] 05:20:00 Test Item Value Reference Range Interpretation [...] PERCENT (BEAKER) (test code = 2801) POCT-GLUCOSE [id number] 21:30:00 Test Item Value Reference Range Interpretation Comments POC-GLUCOSE METER 111 mg/dL 70-[address] [facility] [address] (BEAKER) (test code = [place] 1538) [address] POCT-GLUCOSE [id number] 18:19:00 Test Item Value Reference Range Interpretation Comments POC-GLUCOSE METER 175 mg/dL 70-[address] [facility] [address] (BEAKER) (test code = [place] 1538) [address] POCT-GLUCOSE [id number] 08:28:00 Test Item Value Reference Range Interpretation Comments POC-GLUCOSE METER 143 mg/dL 70-[address] [facility] [address] (BEAKER) (test code = [place] 1538) [address] BASIC METABOLIC [id number] 06:32:00 Test Item Value Reference Range Interpretation [...] ESTIMATED GFR. CBC W/PLT COUNT & AUTO [id number] 06:29:00 Test Item Value Reference Range Interpretation [...] % 0-1 PERCENT (BEAKER) (test code = 2800) POCT-GLUCOSE [id number] 21:28:00 Test Item Value Reference Range Interpretation Comments POC-GLUCOSE METER 170 mg/dL 70-110 H TESTED AT [place] [address] ([facility]) (test code = SHELLY Bill [facility] 1538) [address] POCT-GLUCOSE [id number] 18:02:00 Test Item Value Reference Range Interpretation Comments POC-GLUCOSE METER 180 mg/dL 70-110 H TESTED AT [place] [address] ([facility]) (test code = [place] [facility] 1538) [address] POCT-GLUCOSE [id number] 13:34:00 Test Item Value Reference Range Interpretation Comments POC-GLUCOSE METER 235 mg/dL 70-110 H TESTED AT [place] [address] ([facility]) (test code [facility] 1538) [address] MR, BRAIN, [id number] 12:29:00FINAL REPORT MRI Brain with and without [...] Verified Date/Time: 03/08/2018 12:29:16 Reading Location: [address] Neuro Reading Room W/PLT COUNT & AUTO [id number] 07:59:00 Test Item Value Reference Range Interpretation [...] Received comment: User comments: Slide comments:BASIC METABOLIC [id number] 04:18:00 Test Item Value Reference Range Interpretation [...] DATA TO CALCULA TE ESTIMATED GFR. POCT-GLUCOSE [id number] 23:21:00 Test Item Value Reference Range Interpretation Comments POC-GLUCOSE METER 122 mg/dL 70-[address] [facility] [address] (BEAKER) (test code = [place] 1538) [address] POCT-GLUCOSE [id number] 22:02:00 Test Item Value Reference Range Interpretation Comments POC-GLUCOSE METER 122 mg/dL 70-[address] [facility] [address] (BEAKER) (test code = SHE[place] 1538) [address] POCT-GLUCOSE [id number] 18:27:00 Test Item Value Reference Range Interpretation Comments POC-GLUCOSE METER 120 mg/dL 70-[address] [facility] [address] (BEAKER) (test code = [place] 1538) [address] POCT-GLUCOSE [id number] 12:26:00 Test Item Value Reference Range Interpretation Comments POC-GLUCOSE METER 130 mg/dL 70-[address] [facility] [address] (BEAKER) (test code = SHELLY [place] 1538) [address] POCT-GLUCOSE [id number] 08:44:00 Test Item Value Reference Range Interpretation Comments POC-GLUCOSE METER 141 mg/dL 70-[address] [facility] [address] (BEAKER) (test code = [place] 1538) [address] CBC W/PLT COUNT & AUTO [id number] 07:37:00 Test Item Value Reference Range Interpretation [...] Received comment: User comments: Slide comments:BASIC METABOLIC [id number] 04:29:00 Test Item Value Reference Range Interpretation [...] m DATA TO CALCULA TE ESTIMATED GFR. [id number] 04:28:00 Test Item Value Reference Range Interpretation Comments PHOSPHORUS (BEAKER) (test code = 3.4 mg/dL 2.3-4.7 604) [id number] 04:28:00 Test Item Value Reference Range Interpretation Comments MAGNESIUM (BEAKER) (test code = 1.9 mg/dL 1.6-2.6 627) POCT-GLUCOSE [id number] 22:29:00 Test Item Value Reference Range Interpretation Comments POC-GLUCOSE METER 147 mg/dL 70-110 H TESTED AT [place] [address] ([facility]) (test code = [facility] 1538) [address] POCT-GLUCOSE [id number] 12:29:00 Test Item Value Reference Range Interpretation Comments POC-GLUCOSE METER 87 mg/dL 70-110 TESTED AT [place] [address] ([facility]) (test code = [facility] [address] 1538) POCT-GLUCOSE [id number] 08:21:00 Test Item Value Reference Range Interpretation Comments POC-GLUCOSE METER 122 mg/dL 70-110 H TESTED AT [place] [address] ([facility]) (test code = [facility] 1538) [address] [id number] 05:32:00 Test Item Value Reference Range Interpretation Comments PROTIME (BEAKER) (test code = 13.1 seconds 11.7-14.7 759) [facility] (test code = 370) 1.0 <=5.9 PARTIAL THROMBOPLASTIN TIME 24.2 seconds 22.5-36.0 ([facility]) (test code = 760) RECOMMENDED COUMADIN/WARFARIN INR THERAPY RANGESSTANDARD DOSE: 2.0 - 3.0 Includes: PROPHYLAXIS forvenous thrombosis, systemic embolization; TREATMENT for venous thrombosis and/or pulmonary embolus.HIGH RISK: Target INR is 2.5-3.5 for patients with mechanical heart valves.POCT-GLUCOSE [id number] 05:17:00 Test Item Value Reference Range Interpretation Comments POC-GLUCOSE METER 127 mg/dL 70-110 H TESTED AT [place] [address] ([facility]) (test code = [facility] [place] 1538) [address] BASIC METABOLIC [id number] 05:16:00 Test Item Value Reference Range Interpretation [...] ESTIMATED GFR. CBC W/PLT COUNT & AUTO [id number] 04:56:00 Test Item Value Reference Range Interpretation [...] PERCENT (BEAKER) (test code = 2801) POCT-GLUCOSE [id number] 22:07:00 Test Item Value Reference Range Interpretation Comments POC-GLUCOSE METER 157 mg/dL 70-110 H TESTED AT [place] [address] ([facility]) (test code = [place] Bill [facility] 1538) [address] POCT-GLUCOSE [id number] 16:55:00 Test Item Value Reference Range Interpretation Comments POC-GLUCOSE METER 146 mg/dL 70-110 H TESTED AT [place] [address] ([facility]) (test code = [facility] 1538) [address] TISSUE [id number] 15:23:00Surgical Pathology Report Case: [id number] Authorizing Provider: Robert Tirado MD Collected: 03/04/2018916 Ordering Location: [facility] Received: 03/04/2018920 SERVICES Pathologist: Terry Stanford MD Specimens: A) - Lung, Right Upper Lobe, Right upper lobe endobronchial biopsy B) -Lung, Right Upper Lobe, EBBX. Reflex genetic markers. PART A RIGHT UPPER LOBE LUNG, ENDOBRONCHIAL BIOPSY:ADENOCARCINOMA.SEE DIAGNOSTIC COMMENT.PART B RIGHT UPPER LOBE LUNG, ENDOBRONCHIAL BIOPSY:ADENOCARCINOMA.SEE DIAGNOSTIC COMMENT. Signing Pathologist Direct Phone Line:[phone] signed by Terry Stanford MD on 03/05/2018 at 3:23 PMImmunohistochemical studies performed on block B1 demonstrate the tumor cells to be positive for TTF1 and Napsin A. They are negative for ER and PAX8. The immunoprofile is most compatible with an adenocarcinoma of pulmonary origin.31776u8, 51579, 04230e3, 74801M. Right upper lobe endobronchial biopsy. B. Right [...] stains. BLOCK B1- TTF1, NAPSIN A, ER, QYL9Pmbfygpgrwesearhghxo technical testing was performed at [facility], Pathology Laboratory where it was [...] complexity clinical laboratory testing.FINE NEEDLE ASPIRATE BY [id number] 12:41:00Medical Cytology Report Case: [id number] Authorizing Provider: Robert Tirado MD Collected: 03/04/2018 1023 Ordering Location: [address] Received: 03/04/2018 1244 Service Pathologist: Ben Vila MD Specimen: Lymph Node, Interlobar, Right, Station 11R LYMPH NODE, INTERLOBAR RIGHT, STATION 11R EBUS FNA BY CLINICIAN (CYTOSPINS OF ASPIRATE): - NEGATIVE FOR MALIGNANCY - LYMPHOCYTES PRESENT Signing Pathologist Direct Phone Line: [phone] signed by Ben Garcia MD on 03/05/2018 at 12:41 PMPlease also see surgical pathology report [id number] and cytopathology reports [id number], [id number], 3647 and 3648. [id number] massLYMPH NODE, INTERLOBAR RIGHT, STATION 11R EBUS FNA40 mls in cytorich red; 2 cytospinsCollected: [id number]: [id number] interpretation of this case included the use of immunohistochemistry or special stains. Immunohistochemistry technical testing was performed at [facility], Pathology Laboratory where it was [...] certified under the Clinical Laboratory Improvement Amendments na5174 (CLIA-88) as qualified to perform high complexity clinical laboratory testing.[facility], Department of Pathology, [address] [place] [address], [facility], [facility] of [facility], [address] [place], [place] [address], [facility], Department of Pathology, [address] [place] [address], OLLC NEEDLE ASPIRATE BY [id number] 12:40:00Medical Cytology Report Case: [id number] Authorizing Provider: Robert Triado MD Collected: 03/04/2018 1008 Ordering Location: [address] Received: 03/04/2018 1244 Service Pathologist: Ben Vila MD Specimen: Lymph Node, Lower Paratracheal, Right, Station 4R LYMPH NODE, LOWER PARATRACHEAL, RIGHT, STATION 4R EBUS FNA BY CLINICIAN (CYTOSPINS AND CELL BLOCK OF ASPIRATE): - NEGATIVE FOR MALIGNANCY Signing Pathologist Direct Phone Line: [phone] signed by Ben Vila MD on 03/05/2018 at 12:40 PMSmears and cell block show good sampling of anthracotic lymph node without granuloma or neoplasm.Please also see surgical pathology report [id number] and cytopathology reports [id number], 3646, 3647 and 3649. 18727, 34075Zmev massLYMPH NODE, LOWER PARATRACHEAL, RIGHT, STATION 4R EBUS FNA40 mls in cytorich red; 2 cytospins, cell blockCollected: [id number]: [id number] interpretation of this case included the use of immunohistochemistry or special stains. Immunohistochemistry technical testing was performed at [facility], Pathology Laboratory where it was [...] qualified to perform high complexity clinical laboratory testing.[facility], Department of Pathology, [address] [place] [address], [facility], [facility] of [facility], [address] [place] [address], [facility], Department of Pathology, [address] [place] [address], KMEP NEEDLE ASPIRATE BY [id number] 12:38:00Medical Cytology Report Case: [id number] Authorizing Provider: Robert Tirado MD Collected: 03/04/2018 1002 Ordering Location: [address] Received: 03/04/2018 1244 Service Pathologist: Ben Vila MD Specimen: Lymph Node, Subcarinal, Station 7 LYMPH NODE, SUBCARINAL, STATION 7 EBUS FNA BY CLINICIAN (CYTOSPINS AND CELL BLOCK OF ASPIRATE): - NEGATIVE FOR MALIGNANCY Signing Pathologist Direct Phone Line: [phone] signed by Ben Vila MD on 03/05/2018 at 12:38 PMSmears and cell block show good sampling of anthracotic lymph nodewithout granuloma or neoplasm.Please also see surgical pathology report [id number] and cytopathology reports [id number], 3646, 3648 and 3649. 40857, 07919Dnfe massLYMPH NODE, SUBCARINAL, STATION 7 FNAPrepared cell block(A2) and 2 cytospins from 40 ml cytorich red fixative specimen Collected: [id number]: [id number] interpretation of this case included the use of immunohistochemistry or special stains.Immunohistochemistry technical testing was performed at [facility], Pathology L aboratory where it was [...] qualified to perform high complexity clinical laboratory testing.[facility], Department of Pathology, [address] [place] [address], [facility], Department of Pathology, [address] [place] [address], [facility]rdKa[facility], Department of Pathology, [address] [place] [address], XFWU NEEDLE ASPIRATE BY [id number] 12:35:00Medical Cytology Report Case: [id number] Authorizing Provider: Robert Tirado MD Collected: 03/04/2018 1001 Ordering Location: [address] Received: 03/04/2018 1244 Service Pathologist: Ben Vila MD Specimen: Lymph Node, Lower Paratracheal, Left, Station 4L LYMPH NODE, LOWER PARATRACHEAL, LEFT, STATION 4L, FNA BY CLINICIAN (CYTOSPINS OF ASPIRATE): - NEGATIVE FOR MALIGNANCY PREDOMINANTLY BRONCHIAL EPITHELIAL CELLS Signing Pathologist Direct Phone Line: [phone] signed by Ben Vila MD on 03/05/2018 at 12:35 PMPlease also see surgical pathology report [id number] and cytopathology reports [id number], 3647, 3648 and 3649. [id number] massLYMPH NODE, LOWER PARATRACHEAL, LEFT, STATION 4L FNAPrepared 2 cytospins from 40 ml cytorich red fixative sampleCollected: [id number]: [id number] interpretation of this case included the use of immunohistochemistry or special stains. Immunohistochemistry technical testing was performed at [facility], Pathology Laboratory where it was [...] qualified to perform high complexity clinical laboratory testing.[facility], Department of Pathology, [address] [place] [address], LtsczwKa[facility], Department of Patho logy, [address] [place] [address], JaschbKa[facility], Department of Pathology, [address] [place] [address], DNHS-GLUCOSE [id number] 12:34:00 Test Item Value Reference Range Interpretation Comments POC-GLUCOSE METER 119 mg/dL 70-110 H TESTED AT [place] [address] ([facility] (test code = [place] Bill [place] [address]) [address] FINE NEEDLE ASPIRATE BY [id number] 12:34:00Medical Cytology Report Case: [id number] Authorizing Provider: Robert Tirado MD Collected: 03/04/2018 1001 Ordering Location: [address] Received: 03/04/2018 1244 Service Pathologist: Ben Vila MD Specimen: Lymph Node, Interlobar, Left, Station 11L LYMPH NODE, INTERLOBAR, LEFT, STATION 11L, FNA BY CLINICIAN (CYTOSPINS AND CELL BLOCK OF ASPIRATE): - NEGATIVE FOR MALIGNANCY Signing Pathologist Direct Phone Line: [phone] signed by Ben Vila MD on 03/05/2018 at 12:34 PMSmears and cell block show good sampling of anthracotic lymph node without granuloma or neoplasm.Please also see surgical pathology report [id number] and cytopathology reports [id number], 3647, 3648 and 3649. 46826, 15792Zhkw massLYMPH NODE, INTERLOBAR, LEFT, [id number] FNAPrepared cell block(A2) and 2 cytospins from 45 ml cytorich red fixative sampleCollected: [id number]: [id number] interpretation of this case included the use of immunohistochemistry or special stains. Immunohistochemistry technical testing was performed at [facility], Pathology Laboratory where it was [...] qualified to perform high complexity clinical laboratory testing.[facility], Department of Pathology, [address] [place] [address], [facility]erdviKa[facility], Department of Pathology, [address] [place] [address], DilxalKa[facility], Department of Pathology, [address] [place] [address], NCPP-GLUCOSE [id number] 08:25:00 Test Item Value Reference Range Interpretation Comments POC-GLUCOSE METER 114 mg/dL 70-110 H TESTED AT [place] [address] ([facility]) (test code = [facility] 1538) [address] BASIC METABOLIC [id number] 05:45:00 Test Item Value Reference Range Interpretation [...] ESTIMATED GFR. CBC W/PLT COUNT & AUTO [id number] 05:42:00 Test Item Value Reference Range Interpretation [...] PERCENT (BEAKER) (test code = 2801) BLOOD [id number] 23:01:00 Test Item Value Reference Range Interpretation Comments CULTURE (BEAKER) (test No growth in 5 days code = 1095) POCT-GLUCOSE [id number] 20:32:00 Test Item Value Reference Range Interpretation Comments POC-GLUCOSE METER 122 mg/dL 70-[address] [facility] ([facility]) (test [facility] 1538) [address] POCT-GLUCOSE [id number] 17:53:00 Test Item Value Reference Range Interpretation Comments POC-GLUCOSE METER 199 mg/dL 70-[address] [facility] 67[address] ([facility]) (test code = [facility] 1538) [address] EBUS FNA [id number] 14:00:00 Test Item Value Reference Range Interpretation Comments CYTOLOGY RESULT POINTER See Separate Report (BEAKER) (test code = 2629) EBUS FNA [id number] 14:00:00 Test Item Value Reference Range Interpretation Comments CYTOLOGY RESULT POINTER See Separate Report (BEAKER) (test code = 2629) EBUS FNA [id number] 14:00:00 Test Item Value Reference Range Interpretation Comments CYTOLOGY RESULT POINTER See Separate Report (BEAKER) (test code = 2629) EBUS FNA [id number] 14:00:00 Test Item Value Reference Range Interpretation Comments CYTOLOGY RESULT POINTER See Separate Report ([facility]) (test code = 2629) EBUS FNA [id number] 14:00:00 Test Item Value Reference Range Interpretation Comments CYTOLOGY RESULT POINTER See Separate Report ([facility]) (test code = 2629) POCT-GLUCOSE [id number] 12:06:00 Test Item Value Reference Range Interpretation Comments POC-GLUCOSE METER 114 mg/dL 70-[address] [facility] ([facility]) (test code = [place] 1538) [address] BLOOD [id number] 10:00:00 Test Item Value Reference Range Interpretation Comments CULTURE ([facility]) (test No growth in 5 days code = 1095) POCT-GLUCOSE [id number] 08:22:00 Test Item Value Reference Range Interpretation Comments POC-GLUCOSE METER 120 mg/dL 70-[address] [facility] ([facility]) (test code = [place] 1538) [address] [id number] 06:39:00 Test Item Value Reference Range Interpretation Comments PARTIAL THROMBOPLASTIN TIME 25.2 seconds 22.5-36.0 ([facility]) (test code = 760) PROTHROMBIN [id number] 06:38:00 Test Item Value Reference Range Interpretation Comments PROTIME ([facility]) (test code = 13.6 seconds 11.7-14.7 759) INR ([facility]) (test code = 370) 1.0 <=5.9 RECOMMENDED COUMADIN/WARFARIN INR THERAPY RANGESSTANDARD DOSE: 2.0 - 3.0 Includes: PROPHYLAXIS forvenous thrombosis, systemic embolization; TREATMENT for venous thrombosis and/or pulmonary embolus.HIGH RISK: Target INR is 2.5-3.5 for patients with mechanical heart valves.BASIC METABOLIC [id number] 06:38:00 Test Item Value Reference Range Interpretation [...] ESTIMATED GFR. CBC W/PLT COUNT & AUTO [id number] 06:19:00 Test Item Value Reference Range Interpretation [...] PERCENT (BEAKER) (test code = 2801) POCT-GLUCOSE [id number] 22:29:00 Test Item Value Reference Range Interpretation Comments POC-GLUCOSE METER 175 mg/dL 70-110 H TESTED AT [place] [address] ([facility]) (test code = [facility] 1538) [address] BONE AND/OR JOINT IMAGING, WHOLE [id number] 15:34:00No histologic dx yet, but brain met with lung mass.FINAL REPORT PROCEDURE: BONE SCAN, WHOLE BODY CPT CODE: 31455 INDICATION: Right lung cancer with cerebellar metastasis [...] MDReport Verified Date/Time: 03/03/2018 15:34:30 Reading Location: [address] Reading Room POCT-GLUCOSE [id number] 11:44:00 Test Item Value Reference Range Interpretation Comments POC-GLUCOSE METER 180 mg/dL 70-110 H TESTED AT [place] [address] ([facility]) (test code = [facility] 1538) [address] POCT-GLUCOSE [id number] 08:31:00 Test Item Value Reference Range Interpretation Comments POC-GLUCOSE METER 111 mg/dL 70-[address] [facility] [address] (BEAKER) (test code = [place] [facility] 1538) [address] CBC W/PLT COUNT & AUTO [id number] 05:37:00 Test Item Value Reference Range Interpretation [...] PERCENT (BEAKER) (test code = 2801) POCT-GLUCOSE [id number] 21:27:00 Test Item Value Reference Range Interpretation Comments POC-GLUCOSE METER 202 mg/dL 70-[address] [facility] [address] (BEAKER) (test code = [place] [facility] 1538) [address] POCT-GLUCOSE [id number] 13:34:00 Test Item Value Reference Range Interpretation Comments POC-GLUCOSE METER 94 mg/dL 70-110 TESTED AT [place] [address] (BEAKER) (test code = [place] [facility] [address]38) POCT-GLUCOSE [id number] 08:43:00 Test Item Value Reference Range Interpretation Comments POC-GLUCOSE METER 118 mg/dL 70-110 H TESTED AT [place] [address] (BEAKER) (test code = [facility] Landy [facility] 1538) [address] URINALYSIS W/ REFLEX URINE [id number] 07:40:00 Test Item Value Reference Range Interpretation [...] SOURCE(BEAKER) (test code = 2795) BASIC METABOLIC [id number] 07:17:00 Test Item Value Reference Range Interpretation [...] ESTIMATED GFR. CBC W/PLT COUNT & AUTO [id number] 06:15:00 Test Item Value Reference Range Interpretation [...] PERCENT (BEAKER) (test code = 2801) POCT-GLUCOSE [id number] 21:08:00 Test Item Value Reference Range Interpretation Comments POC-GLUCOSE METER 175 mg/dL 70-[address] [facility] ([facility] (test code = [place] 1538) [address] POCT-GLUCOSE [id number] 17:48:00 Test Item Value Reference Range Interpretation Comments POC-GLUCOSE METER 114 mg/dL 70-[address] [facility] 67[address] (BEAKER) (test code = [place] 1538) [address] POCT-GLUCOSE [id number] 12:27:00 Test Item Value Reference Range Interpretation Comments POC-GLUCOSE METER 119 mg/dL 70-[address] [facility] 67[address] (BEAKER) (test code = [place] 1538) [address] BASIC METABOLIC [id number] 08:12:00 Test Item Value Reference Range Interpretation [...] ESTIMATED GFR. CBC W/PLT COUNT & AUTO [id number] 07:21:00 Test Item Value Reference Range Interpretation [...] PERCENT (BEAKER) (test code = 2801) POCT-GLUCOSE [id number] 06:08:00 Test Item Value Reference Range Interpretation Comments POC-GLUCOSE METER 113 mg/dL 70-[address] [facility] 67[address] ([facility]) (test code = [place] [facility] 1538) [address] POCT-GLUCOSE [id number] 18:58:00 Test Item Value Reference Range Interpretation Comments POC-GLUCOSE METER 117 mg/dL 70-[address] [facility] 67[address] ([facility]) (test code = [facility] Landy [facility] 1538) [address] CT, CHEST, WITH [id number] 15:20:00FINAL REPORT CT of the Chest, abdomen [...] the abdomen or pelvis. Signed: Lamonte Lorenzo [facility] Verified Date/Time: 02/28/2018 15:20:36 Reading Location: [address] Body Reading [facility] [id number] 15:20:00FINAL REPORT CT of the Chest, abdomen [...] MDReport Verified Date/Time: 02/28/2018 15:20:36 Reading Location: [address] Body Reading Room POCT-GLUCOSE [id number] 08:55:00 Test Item Value Reference Range Interpretation Comments POC-GLUCOSE METER 125 mg/dL 70-110 H TESTED AT [place] [address] ([facility]) (test code = [place] [facility] 1538) [address] MR, BRAIN, [id number] 07:59:00[facility] protocolFINAL REPORT MRI Brain with and without [...] MDReport Verified Date/Time: 02/28/2018 07:59:07 Reading Location: [address] Neuro Reading Room POCT- GLUCOSE [id number] 06:39:00 Test Item Value Reference Range Interpretation Comments POC-GLUCOSE METER 150 mg/dL 70-[address] [facility] [address] ([facility]) (test [facility] 1538) [address] BASIC METABOLIC [id number] 05:51:00 Test Item Value Reference Range Interpretation [...] ESTIMATED GFR. CBC W/PLT COUNT & AUTO [id number] 04:09:00 Test Item Value Reference Range Interpretation [...] ABSOLUTE COUNT 16.64 K/ L 1.56-6.13 H ([facility]) (test code = 670) LYMPHOCYTES ABSOLUTE COUNT 1.26 K/ L 1.18-3.74 ([facility]) (test code = 414) MONOCYTES ABSOLUTE COUNT ([facility]) 0.44 K/ L 0.24-0.36 H (test code = 415) EOSINOPHILS ABSOLUTE COUNT 0.01 K/ L 0.04-0.36 L ([facility]) (test code = 416) BASOPHILS ABSOLUTE COUNT ([facility]) 0.03 K/ L 0.01-0.08 (test code = 417) IMMATURE GRANULOCYTES-RELATIVE 1 % 0-1 PERCENT ([facility]) (test code = 2801) POCT-GLUCOSE [id number] 00:17:00 Test Item Value Reference Range Interpretation Comments POC-GLUCOSE METER 122 mg/dL 70-110 H TESTED AT [place] [address] ([facility]) (test code = [facility] 1538) [address] POCT-GLUCOSE [id number] 18:35:00 Test Item Value Reference Range Interpretation Comments POC-GLUCOSE METER 134 mg/dL 70-110 H TESTED AT [place] [address] ([facility]) (test code = [facility] 1538) [address] POCT-GLUCOSE [id number] 12:10:00 Test Item Value Reference Range Interpretation Comments POC-GLUCOSE METER 146 mg/dL 70-110 H TESTED AT [place] [address] ([facility]) (test code = [facility] 1538) [address] [id number] 07:56:00 Test Item Value Reference Range Interpretation Comments PROCALCITONIN ([facility]) (test code = < ng/mL <0.05 3036) SEPSIS RISK (ng/mL)Low: 0.05-0.50Intermediate: 0.51-2.00High: >=2.01LACTATE DEHYDROGENASE (LDH)2018-02-27 06:52:00 Test Item Value Reference Range Interpretation Comments LACTATE DEHYDROGENASE ([facility]) (test 146 U/L 125-220 code = 635) C-REACTIVE [id number] 06:52:00 Test Item Value Reference Range Interpretation Comments C-REACTIVE PROTEIN ([facility]) (test 8.22 mg/dL 0.00-0.50 H code = 676) LACTIC ACID, ARTERIAL, WHOLE [id number] 06:01:00 Test Item Value Reference Range Interpretation Comments LACTATE BLOOD ARTERIAL (2) 1.0 mmol/L 0.5-2.2 (BEAKER) (test code = 2874) BASIC METABOLIC [id number] 05:52:00 Test Item Value Reference Range Interpretation [...] DATA TO CALCULA TE ESTIMATED GFR. TROPONIN [id number] 05:48:00 Test Item Value Reference Range Interpretation Comments TROPONIN I (BEAKER) (test code = 397) < ng/mL 0.00-0.03 [id number] 05:43:00 Test Item Value Reference Range Interpretation Comments MAGNESIUM (BEAKER) 2.1 mg/dL 1.6-2.6 Specimen slightly (test code = 627) hemolyzed [id number] 05:43:00 Test Item Value Reference Range Interpretation Comments PHOSPHORUS (BEAKER) 4.1 mg/dL 2.3-4.7 Specimen slightly (test code = 604) hemolyzed CBC W/PLT COUNT & AUTO [id number] 05:34:00 Test Item Value Reference Range Interpretation [...] PERCENT (BEAKER) (test code = 2801) POCT-GLUCOSE [id number] 05:32:00 Test Item Value Reference Range Interpretation Comments POC-GLUCOSE METER 118 mg/dL 70-[address] [facility] 67[address] (BEAKER) (test code = [place] 1538) [address] [id number] 05:20:00 Test Item Value Reference Range Interpretation [...] 2.5-3.5 for patients with mechanical heart valves.PROTHROMBIN TIME/[id number] 05:19:00 Test Item Value Reference Range Interpretation [...]
[2020-10-22 11:06] LABS: Absolute Lymphocytes (CBC) 1.8 K/uL (0.7-4.9); Basophils % 0.6 % (0-1.3); Hematocrit 32.5 % (36.0-45.0); Lymphocytes % 6.8 % (15.3-44.8); MPV 6.6 fL (7.6-11.3); RBC Red Blood Cell Count 3.88 M/uL (3.86-4.86)
[2020-10-22 11:07] LABS: Protime INR 1.48
--- NOTE | 2020-10-22 11:22 | RAD REPORT ---
EXAM DESCRIPTION: CT - Pelvis Wo Cont - 10/22/2020 11:10 am CLINICAL HISTORY: Pelvic pain status post fall COMPARISON: None. TECHNIQUE: Computed axial tomography of the pelvis was obtained. Coronal and sagittal reconstruction performed All CT scans are performed using dose optimization technique as appropriate and may include automated exposure control or mA/KV adjustment according to patient size. FINDINGS: No fracture or dislocation seen. A significant joint effusion is not noted. Muscles are normal caliber and density IMPRESSION: No fracture seen
[2020-10-22 11:23] LABS: ALT/SGPT 20 U/L (12-78); AST/SGOT 10 U/L (15-37); Albumin 1.8 g/dL (3.4-5.0); Alkaline Phosphatase 152 U/L (45-117); BUN Blood Urea Nitrogen 8 mg/dL (7-18); Bicarbonate 29 mmol/L (21-32); Bilirubin Direct 0.2 mg/dL (0-0.2); Bilirubin Total 0.5 mg/dL (0.2-1.0); Glucose Level 105 mg/dL (74-106); Lipase 18 U/L (73-393); Magnesium 1.8 mg/dL (1.8-2.4); NT PRO-BNP 564 pg/mL (<125); Protein, Total 7.1 g/dL (6.4-8.2); Sodium Level 132 mmol/L (136-145); Troponin (Emerg Dept Use Only) < 0.02 ng/mL (0.0-0.045)
--- NOTE | 2020-10-22 11:40 | RAD REPORT ---
EXAM DESCRIPTION: RAD - Pelvis - 10/22/2020 11:33 am CLINICAL HISTORY: Pelvic pain status post injury FINDINGS: No fracture or dislocation is seen.
--- NOTE | 2020-10-22 11:41 | RAD REPORT ---
EXAM DESCRIPTION: RAD - Hip Right 2 View - 10/22/2020 11:33 am CLINICAL HISTORY: Right hip pain FINDINGS: No fracture or dislocation is seen.
--- NOTE | 2020-10-22 11:43 | RAD REPORT ---
EXAM DESCRIPTION: [place] Single View10/22/2020 11:33 am CLINICAL HISTORY: Chest pain COMPARISON: October 20 2020 FINDINGS: Right upper lobe mass unchanged Mild right lung volume loss Left lung appears clear. Heart is normal size
[2020-10-22] MEDS ORDERED: MORPHINE 4 MG/ML SYR ONE (12:18)
[2020-10-22] MEDS ORDERED: ONDANSETRON 4 MG/2 ML VIAL ONE (12:18)
[2020-10-22] MEDS ORDERED: METHYLPREDNISOLONE 125 MG INJ ONE (12:18)
[2020-10-22] MEDS ORDERED: IPRATROPIUM BROM 0.5MG/2.5ML ONE (12:19)
[2020-10-22] MEDS ORDERED: CEFTRIAXONE/SWI 1gm 1 GM/10 ML SYR ONE (12:19)
[2020-10-22] MEDS ORDERED: LEVALBUTEROL 1.25 MG/3 ML NEB ONE (12:19)
[2020-10-22] MEDS ORDERED: NA CHLORIDE 0.9% 1,000 ML ONE (12:20)
[2020-10-22 12:34] LABS: Anisocytosis 1+; Blood Morphology Comment NOTED (NOT SEEN); Platelet Estimate INCR; Polychromasia 1+
--- NOTE | 2020-10-22 12:46 | RAD REPORT ---
EXAM DESCRIPTION: CT - Chest Abdomen Pelvis W Cont - 10/22/2020 12:27 pm CLINICAL HISTORY: Chest and abdominal pain status post fall COMPARISON: October 20, 2020 TECHNIQUE: Computed axial tomography of the chest, abdomen and pelvis was obtained. 100 cc Isovue-30 0 was administered intravenously. Oral contrast was not requested. This limits evaluation of bowel. All CT scans are performed using dose optimization technique as appropriate and may include automated exposure control or mA/KV adjustment according to patient size. FINDINGS: Right lung mass unchanged A pleural effusion is not present. No pericardial effusion A pulmonary contusion is not seen. A mediastinal hematoma is not present. Fatty liver. Spleen, pancreas, adrenals, kidneys and bladder do not demonstrate a traumatic injury IMPRESSION: No traumatic injury involving the chest, abdomen nor pelvis is seen.
[2020-10-22 13:08] LABS: Urine Blood 1+ (Negative); Urine Glucose Negative (Negative); Urine Protein Trace (Negative); Urine Specific Gravity 1.015 (1.005-1.030)
--- NOTE | 2020-10-22 13:18 | ER ---
Nurse's Notes [facility] Name: Albania Alfaro Age: 60 yrs Sex: Female : 1960 Arrival Date: 10/22/2020 Time: 09:59 Bed 24 Private MD: Diagnosis: COPD/ Chronic obstructive pulmonary disease with (acute) exacerbation;Elevated white blood cell count;Hypokalemia;Fall due to bumping against object;Chest pain, unspecified-chest wall pain, contusion;Low back pain Presentation: 10/22 10:27 Chief complaint: EMS states: pt fell night and had right rib and right hip iw pain, was seen at [place] [facility] and had CT done, was negative , still having a lot of pain. Coronavirus screen: At this time, the client does not indicate any symptoms associated with coronavirus-19. Ebola Screen: Patient negative for fever greater than or equal to 101.5 degrees Fahrenheit, and additional compatible Ebola Virus Disease symptoms Patient denies exposure to infectious person. Patient denies travel to an Ebola-affected area in the 21 days before illness onset. No symptoms or risks identified at this time. Initial Sepsis Screen: Does the patient meet any 2 criteria? No. Patient's initial sepsis screen is negative. Does the patient have a suspected source of infection? No. Patient's initial sepsis screen is negative. Risk Assessment: Do you want to hurt yourself or someone else? Patient reports no desire to harm self or others. Onset of symptoms was October 19, 2020. 10:27 Method Of Arrival: EMS: [place] [facility] iw 10:27 Acuity: AILYN 3 iw - Family history:: not pertinent. Screenin:11 Abuse screen: Denies threats or abuse. Denies injuries from another. Nutritional zb screening: Has had N/V for 3 or more days. Tuberculosis screening: No symptoms or risk factors identified. Fall Risk Fall in past 12 months (25 points). No secondary diagnosis (0 pts). IV access (20 points). Ambulatory Aid- None/Bed Rest/Nurse Assist (0 pts). Gait- Normal/Bed Rest/Wheelchair (0 pts) Mental Status- Oriented to own ability (0 pts). Total River Fall Scale indicates Low Risk Score (25-44 pts). Fall prevention measures have been instituted. Side Rails Up X 2 Placed close to Nursing Station Frequent Obs/Assesments occuring As available Patient and Family Educated on Fall Prevention Program and strategies. Assessment: 13:01 General: Appears in no apparent distress. comfortable, Behavior is cooperative. Pain: zb Complains of pain in right hip and right iliac crest and right low back and right mid back Pain currently is 5 out of 10 on a pain scale. at worst was 9 out of 10 on a pain scale. Quality of pain is described as aching, dull, radiating, Pain began . Neuro: Level of Consciousness is awake, alert, obeys commands, Oriented to person, place, time, situation. Cardiovascular: Heart tones S1 S2 present. Respiratory: Airway is patent Respiratory effort is even, unlabored, Respiratory pattern is regular, symmetrical, Breath sounds with wheezes bilaterally. the patient has mild shortness of breath. GI: Abdomen is round Reports nausea, vomiting. Derm: Skin is intact, is healthy with good turgor, Skin is dry, Skin is normal. Musculoskeletal: Range of motion: limited in right hip. 14:00 Reassessment: Patient appears in no apparent distress at this time. Patient and/or zb family updated on plan of care and expected duration. Pain level reassessed. Patient is alert, oriented x 3, equal unlabored respirations, skin warm/dry/pink. IV fluid infusing. 15:00 Reassessment: Patient appears in no apparent distress at this time. Patient and/or zb family updated on plan of care and expected duration. Pain level reassessed. Patient is alert, oriented x 3, equal unlabored respirations, skin warm/dry/pink. IV fluid infusing. 16:03 Reassessment: Patient appears in no apparent distress at this time. Patient and/or zb family updated on plan of care and expected duration. Pain level reassessed. Patient is alert, oriented x 3, equal unlabored respirations, skin warm/dry/pink. patient currently resting at the moment. IV fluid infusing. Vital Signs: 10:42 BP 101 / 59; Pulse 101; Resp 18; Temp 98.0; Pulse Ox 97% on R/A; Weight 74.84 kg; em1 Height 5 ft. 4 in. (162.56 cm); Pain 9/10; 14:00 BP 97 / 72; Pulse 98; Resp 19; Pulse Ox 97% on R/A; zb 15:00 BP 100 / 63; Pulse 93; Resp 18; Pulse Ox 93% on R/A; zb 16:03 BP 97 / 58; Pulse 90; Resp 19; Pulse Ox 95% on R/A; zb 10:42 Body Mass Index 28.32 (74.84 kg, 162.56 cm) em1 ED Course: 09:59 Patient arrived in ED. cl3 10:30 Triage completed. iw 10:38 Cj Walker MD is Attending Physician. pineda 10:46 Aisha Hunter RN is Primary Nurse. iw 10:55 Initial lab(s) drawn, by me, sent to lab. Inserted saline lock: 20 gauge in right em1 wrist, using aseptic technique. Blood collected. 11:10 CT Pelvis wo Cont: atte hips In Process Unspecified. EDMS 11:33 XRAY Chest (1 view) In Process Unspecified. EDMS 11:33 Pelvis XRAY In Process Unspecified. EDMS 11:33 Hip Right 2 View XRAY In Process Unspecified. EDMS 12:27 CT Chest, Abdomen, Pelvis - W/Contrast In Process Unspecified. EDMS 13:15 Octavio Tran MD is Hospitalizing Provider. pineda 13:24 Urine collected: straight cath specimen, tea colored. mh5 13:24 Patient has correct armband on for positive identification. Placed in gown. Bed in low mh5 position. Call light in reach. Side rails up X2. Warm blanket given. clinical nurse educator on. Pulse ox on. NIBP on. 18:58 Angelita Bautista RN is Primary Nurse. zb 10/23 13:50 Attending Physician role handed off by jC Walker MD eb 13:50 Primary Nurse role handed off by Angelita Bautista RN eb Administered Medications: 10/22 11:57 Drug: Zofran (Ondansetron) 4 mg Route: IVP; Site: right forearm; kg 14:38 Follow up: Response: No adverse reaction; Marked relief of symptoms zb 11:58 Drug: morphine 4 mg Route: IVP; Site: right forearm; kg 14:38 Follow up: Response: No adverse reaction; Marked relief of symptoms; Pain is decreased zb 12:00 Drug: SOLU-Medrol (methylPrednisoLONE) 125 mg Route: IVP; Site: right forearm; kg 14:39 Follow up: Response: No adverse reaction zb 12:05 Drug: NS 0.9% 1000 ml Route: IV; Rate: 1 bolus; Site: right forearm; kg 14:00 Follow up: Response: No adverse reaction; IV Status: Completed infusion; IV Intake: zb 1000ml 12:10 Drug: Rocephin (cefTRIAXone) 1 grams Route: IV; Rate: per protocol; Site: right forearm;kg 14:37 Follow up: Response: No adverse reaction; IV Status: Completed infusion; IV Intake: 10mlzb 13:01 Drug: Xopenex (levalbuterol) 3.75 mg Route: Inhalation; zb 14:39 Follow up: Response: No adverse reaction zb 13:01 Drug: AtroVENT (ipratropium) Aerosol 0.5 mg Route: Inhalation; zb 14:39 Follow up: Response: No adverse reaction; Marked relief of symptoms zb 13:59 Drug: Potassium Effervescent Tablet 50 mEq Route: PO; zb 18:31 Follow up: Response: No adverse reaction; Marked relief of symptoms zb 14:00 Drug: NS 0.9% with KCl 20 mEq/L 1000 ml Route: IV; Rate: 100 ml/hr; Site: right wrist; zb 18:32 Follow up: Response: No adverse reaction; IV Status: Infusion continued upon admission; zb IV Intake: 400ml Intake: 14:00 IV: 1000ml; Total: 1000ml. zb 14:37 IV: 10ml; Total: 1010ml. zb 18:32 IV: 400ml; Total: 1410ml. zb Outcome: 13:17 Decision to Hospitalize by Provider. [facility] 10/23 00:11 Admitted to ER Hold. Please see [facility] for further documentation. bb 13:49 Patient left the ED. eb 15:37 Patient left the ED. iw Signatures: Dispatcher [employer] EDCj Smith MD MD cha Ballard, Brenda, RN RN Aisha Cueva RN RN iw Martinez, Eric em1 Martinez, Maria Yeny David Charde cl3 Brown, Zipporah, RN RN zChelsy Beebe RN RN kg
--- NOTE | 2020-10-22 13:18 | EDPHYS ---
Physician Documentation [facility] Name: Albania Alfaro Age: 60 yrs Sex: Female : 1960 Arrival Date: 10/22/2020 Time: 09:59 Bed 24 Private MD: ED Physician HPI: 10/22 11:48 This 60 yrs old Female presents to ER via EMS with complaints of Hip Pain. pineda 11:48 The patient or guardian reports decreased range of motion, pain. sustained from a [facility] direct blow, a fall. The complaints affect the mid back area, right mid back and right low back. Onset: The symptoms/episode began/occurred 2 day(s) ago. Modifying factors: The symptoms are alleviated by nothing, remaining still, the symptoms are aggravated by any movement. Associated signs and symptoms: Loss of consciousness: the patient experienced no loss of consciousness. Severity of symptoms: At their worst the symptoms were moderate, in the emergency department the symptoms are unchanged. The patient has not experienced similar symptoms in the past. - Family history:: not pertinent. ROS: 11:48 Constitutional: Negative for fever, chills, and weight loss, Eyes: Negative for injury, pineda pain, redness, and discharge, ENT: Negative for injury, pain, and discharge, Neck: Negative for injury, pain, and swelling, Abdomen/GI: Negative for abdominal pain, nausea, vomiting, diarrhea, and constipation, : Negative for injury, bleeding, discharge, and swelling, Skin: Negative for injury, rash, and discoloration, Neuro: Negative for headache, weakness, numbness, tingling, and seizure, Psych: Negative for depression, anxiety, suicide ideation, homicidal ideation, and hallucinations, Allergy/Immunology: Negative for hives, rash, and allergies, Endocrine: Negative for neck swelling, polydipsia, polyuria, polyphagia, and marked weight changes, Hematologic/Lymphatic: Negative for swollen nodes, abnormal bleeding, and unusual bruising. 11:48 Cardiovascular: Negative for chest pain. 11:48 Respiratory: Positive for cough, shortness of breath, wheezing, inspiratory, expiratory. 11:48 Back: Positive for decreased range of motion, pain at rest, pain with movement, flank pain, on the right, of the right mid back and right low back. 11:48 MS/extremity: Positive for decreased range of motion, pain, tenderness, of the right iliac crest and right hip. Exam: 11:52 Constitutional: This is a well developed, well nourished patient who is awake, alert, pineda and in no acute distress. Head/Face: Normocephalic, atraumatic. Eyes: Pupils equal round and reactive to light, extra-ocular motions intact. Lids and lashes normal. Conjunctiva and sclera are non-icteric and not injected. Cornea within normal limits. Periorbital areas with no swelling, redness, or edema. ENT: Nares patent. No nasal discharge, no septal abnormalities noted. Tympanic membranes are normal and external auditory canals are clear. Oropharynx with no redness, swelling, or masses, exudates, or evidence of obstruction, uvula midline. Mucous membranes moist. Neck: Trachea midline, no thyromegaly or masses palpated, and no cervical lymphadenopathy. Supple, full range of motion without nuchal rigidity, or vertebral point tenderness. No Meningismus. Chest/axilla: Normal chest wall appearance and motion. Nontender with no deformity. No lesions are appreciated. Cardiovascular: Regular rate and rhythm with a normal S1 and S2. No gallops, murmurs, or rubs. Normal PMI, no JVD. No pulse deficits. Female : Normal external genitalia. Skin: Warm, dry with normal turgor. Normal color with no rashes, no lesions, and no evidence of cellulitis. Neuro: Awake and alert, GCS 15, oriented to person, place, time, and situation. Cranial nerves II-XII grossly intact. Motor strength 5/5 in all extremities. Sensory grossly intact. Cerebellar exam normal. Normal gait. Psych: Awake, alert, with orientation to person, place and time. Behavior, mood, and affect are within normal limits. 11:52 Respiratory: the patient does not display signs of respiratory distress, Respirations: no acute changes, labored breathing, Breath sounds: bronchial sounds, decreased breath sounds, rhonchi, wheezing: inspiratory expiratory Respiratory rate: 20 11:52 Abdomen/GI: Inspection: abdomen appears normal, Bowel sounds: normal, Palpation: nontender, Liver: no appreciated palpable abnormalities, Hernia: not appreciated. 11:52 Back: pain, that is moderate, of the right mid back and right low back, ROM is painful, normal spinal alignment noted, CVA tenderness, that is moderate, is noted on the right, vertebral tenderness, is not appreciated, muscle spasm, is appreciated in the right mid back and right low back. Vital Signs: 10:42 BP 101 / 59; Pulse 101; Resp 18; Temp 98.0; Pulse Ox 97% on R/A; Weight 74.84 kg; em1 Height 5 ft. 4 in. (162.56 cm); Pain 9/10; 14:00 BP 97 / 72; Pulse 98; Resp 19; Pulse Ox 97% on R/A; zb 15:00 BP 100 / 63; Pulse 93; Resp 18; Pulse Ox 93% on R/A; zb 16:03 BP 97 / 58; Pulse 90; Resp 19; Pulse Ox 95% on R/A; zb 10:42 Body Mass Index 28.32 (74.84 kg, 162.56 cm) em1 MDM: 10:41 Patient medically screened. pineda 11:54 Differential diagnosis: hip fracture, intertrochanteric fracture, arthritis, strain. pineda Data reviewed: vital signs, nurses notes, lab test result(s), EKG, radiologic studies. 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 Test interpretation: by ED physician or midlevel provider: ECG, plain radiologic studies. Counseling: I had a detailed discussion with the patient and/or guardian regarding: the historical points, exam findings, and any diagnostic results supporting the discharge/admit diagnosis, lab results, radiology results, the need for further work-up and treatment in the hospital. 10/22 10:41 Order name: Basic Metabolic Panel; Complete Time: 11:46 [facility] 10/22 10:41 Order name: CBC with Diff; Complete Time: 13:07 [facility] 10/22 10:41 Order name: LFT's; Complete Time: 11:46 [facility] 10/22 10:41 Order name: Magnesium; Complete Time: 11:46 [facility] 10/22 10:41 Order name: NT PRO-BNP; Complete Time: 11:46 10/22 10:41 Order name: PT-INR; Complete Time: 11:46 [facility] 10/22 10:41 Order name: Troponin (emerg Dept Use Only); Complete Time: 11:46 [facility] 10/22 10:41 Order name: Lipase; Complete Time: 11:46 [facility] 10/22 10:41 Order name: Urine Culture [facility] 10/22 11:16 Order name: Manual Differential; Complete Time: 13:07 [facility] 10/22 11:19 Order name: Lactate [facility] 10/22 11:19 Order name: Blood Culture Adult (2) [facility] 10/22 11:20 Order name: Lactate [facility] 10/22 11:20 Order name: Blood Culture [facility] 10/22 13:08 Order name: Urine Dipstick-Ancillary [facility] 10/22 18:03 Order name: C-Reactive Protein [facility] 10/22 18:59 Order name: COVID-19 : Document "Date of Symptom Onset" if Symptomatic. 10/22 19:58 Order name: CORONAVIRUS [facility] 10/22 20:52 Order name: SARS-COV-2 RT PCR [facility] 10/22 20:56 Order name: Hemoglobin [facility] 10/22 20:56 Order name: Hematocrit [facility] 10/22 21:32 Order name: Sedimentation Rate, [place] [facility] 10/23 02:17 Order name: Hemoglobin [facility] 10/23 02:17 Order name: Hematocrit [facility] 10/23 05:46 Order name: CBC with Automated Diff [facility] 10/23 05:55 Order name: Protime (+INR) [facility] 10/23 06:30 Order name: Comprehensive Metabolic Panel [facility] 10/23 06:30 Order name: Magnesium [facility] 10/23 10:16 Order name: Hemoglobin [facility] 10/23 10:16 Order name: Hematocrit [facility] 10/22 10:41 Order name: XRAY Chest (1 view); Complete Time: 11:46 [facility] 10/22 10:41 Order name: EKG; Complete Time: 10:42 [facility] 10/22 10:41 Order name: Cardiac monitoring; Complete Time: 14: [facility] 10/22 10:41 Order name: EKG - Nurse/Tech; Complete Time: 14:01 [facility] 10/22 10:41 Order name: IV Saline Lock; Complete Time: 10:55 [facility] 10/22 10:41 Order name: Labs collected and sent; Complete Time: 10:55 [facility] 10/22 10:41 Order name: O2 Per Protocol; Complete Time: 14:01 [facility] 10/22 10:41 Order name: O2 Sat Monitoring; Complete Time: 14: [facility] 10/22 10:41 Order name: Pelvis XRAY; Complete Time: 11:46 [facility] 10/22 10:41 Order name: Hip Right 2 View XRAY; Complete Time: 11:46 [facility] 10/22 10:41 Order name: CT Pelvis wo Cont: atte hips; Complete Time: 11:46 [facility] 10/22 10:41 Order name: Urine Dipstick-Ancillary (obtain specimen); Complete Time: 14:58 [facility] 10/22 11:48 Order name: CT Chest, Abdomen, Pelvis - W/Contrast [facility] 10/22 15:09 Order name: CONS Physician Consult EDOR 10/23 09:20 Order name: RAD EDMS Administered Medications: 11:57 Drug: Zofran (Ondansetron) 4 mg Route: IVP; Site: right forearm; kg 14:38 Follow up: Response: No adverse reaction; Marked relief of symptoms zb 11:58 Drug: morphine 4 mg Route: IVP; Site: right forearm; kg 14:38 Follow up: Response: No adverse reaction; Marked relief of symptoms; Pain is decreased zb 12:00 Drug: SOLU-Medrol (methylPrednisoLONE) 125 mg Route: IVP; Site: right forearm; kg 14:39 Follow up: Response: No adverse reaction zb 12:05 Drug: NS 0.9% 1000 ml Route: IV; Rate: 1 bolus; Site: right forearm; kg 14:00 Follow up: Response: No adverse reaction; IV Status: Completed infusion; IV Intake: zb 1000ml 12:10 Drug: Rocephin (cefTRIAXone) 1 grams Route: IV; Rate: per protocol; Site: right forearm;kg 14:37 Follow up: Response: No adverse reaction; IV Status: Completed infusion; IV Intake: 10mlzb 13:01 Drug: Xopenex (levalbuterol) 3.75 mg Route: Inhalation; zb 14:39 Follow up: Response: No adverse reaction zb 13:01 Drug: AtroVENT (ipratropium) Aerosol 0.5 mg Route: Inhalation; zb 14:39 Follow up: Response: No adverse reaction; Marked relief of symptoms zb 13:59 Drug: Potassium Effervescent Tablet 50 mEq Route: PO; zb 18:31 Follow up: Response: No adverse reaction; Marked relief of symptoms zb 14:00 Drug: NS 0.9% with KCl 20 mEq/L 1000 ml Route: IV; Rate: 100 ml/hr; Site: right wrist; zb 18:32 Follow up: Response: No adverse reaction; IV Status: Infusion continued upon admission; zb IV Intake: 400ml Disposition Summary: 10/22/20 13:17 Hospitalization Ordered Hospitalization Status: Inpatient Admission pineda Provider: Octavio Tran cha Condition: Fair pineda Problem: new pineda Symptoms: have improved pineda Bed/Room Type: Standard pineda Location: Telemetry/MedSurg (Inpatient)(10/23/20 12:15) eb Room Assignment: 204(10/23/20 12:15) eb Diagnosis - COPD/ Chronic obstructive pulmonary disease with (acute) exacerbation pineda - Elevated white blood cell count pineda - Hypokalemia pineda - Fall due to bumping against object pineda - Chest pain, unspecified - chest wall pain, contusion pineda - Low back pain pineda Forms: - Medication Reconciliation Form pineda - SBAR form pineda Signatures: Dispatcher [employer] EDCj Smith MD MD cha Garcia, Cindy, RN RN Yeny Lea Zipporah, RN RN zb Graham, Kristen, RN RN kg Corrections: (The following items were deleted from the chart) 20:19 13:17 Telemetry/MedSurg (Inpatient) pineda cg 20:19 13:17 pineda cg 23:24 20:19 Telemetry/MedSurg (Inpatient) cg cg 23:24 20:19 cg cg 10/23 12:15 10/22 23:24 [facility] ER HOLD cg eb 10/23 12:15 10/22 23:24 ERHOLD- cg eb
[2020-10-22] MEDS ORDERED: POTASSIUM 25 MEQ EFFERV TAB ONE (14:01)
[2020-10-22] MEDS ORDERED: NS KCL 20MEQ 1,000 ML IV ONE (14:01)
--- NOTE | 2020-10-22 14:32 | P.HP ---
Certification for Inpatient Patient admitted to: Observation With expected LOS: <2 Midnights Practitioner: I am a practitioner with admitting privileges, knowledge of patient current condition, hospital course, and medical plan of care. 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 Presents to ED today with complaints of intractable pain of her back right shoulder, bilateral legs. Pain began after fall 2 days ago. Patient tripped due to her dog falling forward into a post hitting her right flank. She was initially taken to [facility] ER, work-up was negative for any acute fractures patient was discharged home with pain medication. She is continued to have severe pain, and then yesterday began to have some wheezing and cough. She reports unable to have a good, strong cough due to pain limiting her inspiration. She reports 5-6 episodes of coughing until she throws up, emesis with 5-6 dime sized blood clots. She reports blood clots were initially bright red, now more of a brownish-red. She denies any nosebleed. She denies coughing up blood, but has been unable to cough up anything due to back/R flank pain limiting her. Also reports b/l legs, mostly from kneeds down feel heavier and numb - prior to fall felt she was at ~70%, now at ~30%. She reports a remote history of gastric ulcer, however she underwent EGD 2-3 months ago which was all clean. She denies any recent GERD symptoms. She last had chemo 1 month ago with Taxol. She currently takes aspirin 325 mg daily. She denies any NSAID usage, no blood thinners. She reports recent low grade fevers and just completed a course of levaquin yesterday, and currently on a medrol dose pack day 3 or 4. Lab work in ED, notable for leukocytosis of 26, hemoglobin: 10.8, platelets: 703. INR: 1.48. CT chest/abdomen/pelvis performed, reveals enlarging right upper lobe mass that is now encroaching more on the right bronchi. No pulmonary contusion, no effusion, no broken ribs, no other acute traumatic findings. Allergies erythromycin base Allergy (Verified 08/10/14 01:53) fever, nausea Home Medications: Ciprofloxacin HCl [Cipro 500 MG Tablet] 500 mg PO BID #20 tablet 08/12/14 Codeine/APAP [Tylenol W/Codeine #3 tab] 1 tab PO Q6HP PRN #30 tab 08/12/14 metroNIDAZOLE [Flagyl*] 500 mg PO Q8H #30 tablet 08/12/14 - Past Medical/Surgical History -: Stage IV lung cancer -: Cholecystectomy -: Resection of brain metastasis - Family History Father -: Hypertension, Diabetes Notes: multiple heart stents, miltiple femoral stents, CAGB - Social History Smoking Status: Former smoker (quit in 2003) Alcohol use: Yes CD- Drugs: No Caffeine use: Yes Review of Systems 10-point ROS is otherwise unremarkable Physical Examination - Studies Laboratory Data (last 24 hrs) 10/22/20 10:50: PT 17.1 H, INR 1.48 10/22/20 10:50: WBC 26.00 H*, Hgb 10.8 L, Hct 32.5 L, Plt Count 703 H 10/22/20 10:50: Sodium 132 L, Potassium 3.0 L, BUN 8, Creatinine 0.46 L, Glucose 105, Magnesium 1.8, Total Bilirubin 0.5, AST 10 L, ALT 20, Alkaline Phosphatase 152 H, Lipase 18 L Assessment and Plan - Advance Directives Does patient have a Living Will: No Does patient have a Durable POA for Healthcare: No Physician Review Additional Text: Physical Exam: Gen: mod distress, in pain. AAOx3 HEENT: normal conjunctiva, sclera anicteric, no rhinorrhea CV: regular rate/rhythm, no edema Pulm: b/l wheeze R>L, diminished in RUL, nonlabored on RA Abd: soft, mild tenderness in R flank MSK: tenderness of b/l lower legs, no joint swelling, tenderness along lumbar spine Integumentary: R flank / lumbar region with large ecchymosis, muscle tenderness Neuro: str 5/5 bilateral upper/lower extremities - lower extremities limited due to pain, full ROM of b/l hips/knees/ankles, R lateral hip pain with hip flexion. sensation intact and symmetric on b/l lower extremities. CN II-XII grossly intact Problem List Hemoptysis vs hematemesis Intractable pain after mechanical fall Stage IV lung cancer -Unclear if hemoptysis versus hematemesis Patient states her cough has been weak and unable to cough anything up secondary to her back/flank pain She has coughing episodes that then lead to emesis with these blood clots Hemoglobin without any significant change compared to previous recent labs Review of CT chest reveals enlarging lung mass, encroaching into her right bronchus -which can very well explain some bleeding Reviewed with radiologist who agreed Reviewed with mediation commissioner and patient's oncologist, recommend observation overnight, every 4 H&H If hemoptysis worsens or hemoglobin drops, would then pursue transfer to tertiary care center for artery embolization Less likely to be GI bleed, patient had recent EGD without any signs of ulceration or inflammation, per patient. Hold aspirin Pain control with p.o. morphine as recommended by her oncologist, continue home tramadol, patient recently placed 25 mcg fentanyl patch which can be continued Start prednisone 60 mg daily -Pantoprazole 40 BId for now Code: Full Dispo: anticipate dc home in next 24-48hrs pending stable H/H and pain control Time Spent Managing Pts Care (In Minutes): 75
[2020-10-22] MEDS ORDERED: ALBUTEROL 2.5 MG/3 ML NEB SOL NEB PRN (17:20)
[2020-10-22] MEDS: predniSONE 20 MG TAB PO SCH (17:20)
[2020-10-22] MEDS ORDERED: TRAMADOL HCL 50 MG TAB PO PRN (17:20)
[2020-10-22] MEDS ORDERED: IPRATROPIUM BROM 0.5MG/2.5ML NEB PRN (17:20)
[2020-10-22] MEDS ORDERED: ONDANSETRON 4 MG/2 ML VIAL IV PRN (17:20)
[2020-10-22 18:02] VITALS: BMI 28.3
[2020-10-22] MEDS: MORPHINE 15 MG IR TAB PO PRN (19:15)
[2020-10-22] MEDS ORDERED: MORPHINE 15 MG IR TAB PO ONE (19:30)
[2020-10-22] MEDS ORDERED: predniSONE 20 MG TAB ONE (19:30)
[2020-10-22 20:53] LABS: Hematocrit 28.8 % (36.0-45.0)
[2020-10-23] MEDS: MORPHINE 15 MG IR TAB PO PRN ×3 (01:36→12:04)
[2020-10-23] MEDS ORDERED: MORPHINE 15 MG IR TAB PO ONE ×3 (01:52→12:26)
[2020-10-23 02:12] LABS: Hematocrit 28.6 % (36.0-45.0)
[2020-10-23 05:41] LABS: Basophils % 0.4 % (0-1.3); Hematocrit 27.3 % (36.0-45.0); Lymphocytes % 5.6 % (15.3-44.8); MPV 6.6 fL (7.6-11.3); RBC Red Blood Cell Count 3.26 M/uL (3.86-4.86)
[2020-10-23 05:51] LABS: Protime INR 1.33
[2020-10-23 06:27] LABS: ALT/SGPT 17 U/L (12-78); AST/SGOT 7 U/L (15-37); Albumin 1.7 g/dL (3.4-5.0); Alkaline Phosphatase 128 U/L (45-117); BUN Blood Urea Nitrogen 9 mg/dL (7-18); Bicarbonate 30 mmol/L (21-32); Bilirubin Total 0.3 mg/dL (0.2-1.0); Glucose Level 150 mg/dL (74-106); Magnesium 2.1 mg/dL (1.8-2.4); Potassium 3.8 mmol/L (3.5-5.1); Protein, Total 6.4 g/dL (6.4-8.2); Sodium Level 138 mmol/L (136-145)
[2020-10-23] MEDS ORDERED: CEFTRIAXONE/SWI 1gm 1 GM/10 ML SYR ONE (07:49)
[2020-10-23] MEDS ORDERED: POTASSIUM CL SA 10 MEQ TAB PO ONE ×2 (07:52→09:00)
[2020-10-23 07:56] VITALS: O2SAT 96
[2020-10-23] MEDS: predniSONE 20 MG TAB PO SCH (08:32)
[2020-10-23] MEDS ORDERED: predniSONE 20 MG TAB ONE (08:54)
[2020-10-23] MEDS ORDERED: CEFTRIAXONE/SWI 1gm 1 GM/10 ML SYR IV SCH (09:00)
[2020-10-23] MEDS ORDERED: CEFTRIAXONE 1 GM/NS 50 ML 1 GM/50 ML BAG IV SCH (09:00)
--- NOTE | 2020-10-23 09:20 | RAD REPORT ---
EXAM DESCRIPTION: RAD - Chest Pa And Lat (2 Views) - 10/23/2020 9:10 am CLINICAL HISTORY: cough, ?hemoptysis, RUL cancer COMPARISON: Chest Single View dated 10/22/2020; Chest Pa And Lat (2 Views) dated 09/27/2020; Chest Sin gle View dated 08/27/2020; Chest Single View dated 04/06/2019; Chest Abdomen Pelvis W Cont dated 10/23/19 21 FINDINGS: Right upper lobe mass is unchanged compared with the CT from 10/22/2020. No new acute proc ess identified. The heart size is within normal limits.No acute osseous abnormality. No significant p leural effusions or pneumothorax. IMPRESSION: No acute cardiopulmonary disease. Right upper lobe mass unchanged since 10/22/2020.
[2020-10-23 10:13] LABS: Hematocrit 30.7 % (36.0-45.0)
[2020-10-23 14:57] VITALS: BP 91/46; TEMP 97.5
--- NOTE | 2020-10-23 17:15 | P.DS ---
Admission Date: 10/22/20 Discharge Date: 10/23/20 Disposition: ROUTINE DISCHARGE Discharge Condition: FAIR Reason for Admission: Hemoptysis, intractable pain after fall Consultations: Case discussed with patient's Oncologist and Pulmonology Procedures: CXR (10/22): Right upper lobe mass unchanged Mild right lung volume loss Left lung appears clear. Heart is normal size Hip Xray (10/22): No fracture or dislocation is seen. CT Pelvis (10/22): FINDINGS: No fracture or dislocation seen. A significant joint effusion is not noted. Muscles are normal caliber and density IMPRESSION: No fracture seen Xray Pelvis (10/22): FINDINGS: No fracture or dislocation is seen. CT Chest/Abd/Pelvis (10/22): FINDINGS: Right lung mass unchanged A pleural effusion is not present. No pericardial effusion A pulmonary contusion is not seen. A mediastinal hematoma is not present. Fatty liver. Spleen, pancreas, adrenals, kidneys and bladder do not demonstrate a traumatic injury IMPRESSION: No traumatic injury involving the chest, abdomen nor pelvis is seen. The large right upper lobe mass extends into the right mainstem bronchus. CXR (10/23): Right upper lobe mass is unchanged compared with the CT from 10/22/2020. No new acute process identified. The heart size is within normal limits.No acute osseous abnormality. No significant pleural effusions or pneumothorax. IMPRESSION: No acute cardiopulmonary disease. Right upper lobe mass unchanged since 10/22/2020. 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 Presents to ED today with complaints of intractable pain of her back right shoulder, bilateral legs. Pain began after fall 2 days ago. Patient tripped due to her dog falling forward into a post hitting her right flank. She was initially taken to [facility] ER, work-up was negative for any acute fractures patient was discharged home with pain medication. She is continued to have severe pain, and then yesterday began to have some wheezing and cough. She reports unable to have a good, strong cough due to pain limiting her inspiration. She reports 5-6 episodes of coughing until she throws up, emesis with 5-6 dime sized blood clots. She reports blood clots were initially bright red, now more of a brownish-red. She denies any nosebleed. She denies coughing up blood, but has been unable to cough up anything due to back/R flank pain limiting her. Also reports b/l legs, mostly from kneeds down feel heavier and numb - prior to fall felt she was at ~70%, now at ~30%. She reports a remote history of gastric ulcer, however she underwent EGD 2-3 months ago which was all clean. She denies any recent GERD symptoms. She last had chemo 1 month ago with Taxol. She currently takes aspirin 325 mg daily. She denies any NSAID usage, no blood thinners. She reports recent low grade fevers and just completed a course of levaquin yesterday, and currently on a medrol dose pack day 3 or 4. Lab work in ED, notable for leukocytosis of 26, hemoglobin: 10.8, platelets: 703. INR: 1.48. CT chest/abdomen/pelvis performed, reveals enlarging right upper lobe mass that is now encroaching more on the right bronchi. No pulmonary contusion, no effusion, no broken ribs, no other acute traumatic findings. Hospital Course: Difficulty to truly differentiate if she was having hemoptysis vs hematemesis. She had a very weak cough secondary to R flank pain. She was swallowing whatever phlegm/secretions since she could not cough it up. She would get these weak coughing fits until she would vomit. Her emesis would have a few to several blood clots - dime sized. She had no emesis during her hospitalization and did not cough anything up. CT Chest was reviewed and revealed enlarging RUL mass, now encroaching into R bronchus. This was reviewed and confirmed by the radiologist and an addendum was added to the report. This is likely the source of bleed. Prior to admission, she had reported the blood clots were already becoming fewer in number, smaller in size, and darker red/brownish, indicating the bleeding was likely slowing down. Case was reviewed with patient's Oncologist and Pulmonology. She was observed overnight for any continued bleeding. Her hemoglobin remained stable, she did not have any further hemoptysis/hematemesis. On day of discharge she had no pain, no bleeding, and pain was better controlled. Pulmonology recommended empiric antibiotic coverage as well. PO morphine was added to her pain regimen and improved her symptoms significantly. She was able to ambulate around the nurses station and felt steady/safe for discharge home. She was noted to have a leukocytosis and significantly elevated ESR/CRP, increasing over the last several weeks. After discussion with her oncologist, this is felt to be due to an auto-immune / inflammatory state as a result from her chemo. Oncology recommended prednisone 60mg/daily. She was discharged home with pain medication, augmentin per pulm recommendations, and prednisone. Vital Signs/Physical Exam: Physical Exam: Gen: NAD, AAOx3 HEENT: normal conjunctiva, sclera anicteric, no bleed/blood in visible nares/oropharynx CV: regular rate/rhythm, no edema Pulm: diminished in RUL with slight crackles, nonlabored on RA Abd: soft, mild tenderness in posterior R flank MSK: tenderness of b/l lower legs, no joint swelling, tenderness along lumbar spine Integumentary: R flank / lumbar region with large ecchymosis, muscle tenderness Neuro: str 5/5 bilateral upper/lower extremities, full ROM of b/l hips/knees/ankles, R lateral hip pain with hip flexion. sensation intact and symmetric on b/l lower extremities. CN II-XII grossly intact Temp Pulse Resp BP Pulse Ox 97.5 F 89 15 91/46 L 94 10/23/20 14:56 10/23/20 14:56 10/23/20 14:56 10/23/20 14:56 10/23/20 14:56 Laboratory Data at Discharge: WBC 18.60 K/uL (4.3-10.9) H D 10/23/20 05:25 Hgb 10.1 g/dL (12.0-15.0) L 10/23/20 09:23 Hct 30.7 % (36.0-45.0) L 10/23/20 09:23 Plt Count 574 K/uL (152-406) H 10/23/20 05:25 PT 15.3 SECONDS (9.5-12.5) H 10/23/20 05:25 INR 1.33 10/23/20 05:25 Sodium 138 mmol/L (136-145) 10/23/20 05:25 Potassium 3.8 mmol/L (3.5-5.1) 10/23/20 05:25 BUN 9 mg/dL (7-18) 10/23/20 05:25 Creatinine 0.33 mg/dL (0.55-1.3) L 10/23/20 05:25 Glucose 150 mg/dL (74-106) H 10/23/20 05:25 Magnesium 2.1 mg/dL (1.8-2.4) 10/23/20 05:25 Total Bilirubin 0.3 mg/dL (0.2-1.0) 10/23/20 05:25 AST 7 U/L (15-37) L 10/23/20 05:25 ALT 17 U/L (12-78) 10/23/20 05:25 Alkaline Phosphatase 128 U/L (45-117) H 10/23/20 05:25 Lipase 18 U/L (73-393) L 10/22/20 10:50 Home Medications: Codeine/APAP [Tylenol #3*] 1 tab PO Q6HP PRN #30 tab 08/12/14 Amoxicillin/Potassium Clav [Augmentin 875-125 Tablet] 1 each PO BID 7 Days #14 tablet 10/23/20 Morphine Ir [MSIR (Morphine Sulfate IR)*] 15 mg PO Q8HP PRN #10 tab 10/23/20 Ondansetron [Zofran] 4 mg PO Q6H PRN #15 tab 10/23/20 Tramadol HCl [Ultram] 1 tab PO Q6HP PRN 10/23/20 predniSONE [Prednisone*] 60 mg PO DAILY 10 Days #30 tab 10/23/20 New Medications: Morphine Ir [MSIR (Morphine Sulfate IR)*] 15 mg PO Q8HP PRN #10 tab PRN Reason: Pain Scale 8-10 (Severe) Amoxicillin/Potassium Clav [Augmentin 875-125 Tablet] 1 each PO BID 7 Days #14 tablet predniSONE [Prednisone*] 60 mg PO DAILY 10 Days #30 tab Ondansetron [Zofran] 4 mg PO Q6H PRN #15 tab PRN Reason: Nausea / Vomiting Physician Discharge Instructions: You were evaluated by CT chest/abd/pelvis, and x-rays. There was no finding of fractures or significant injury. Your pain improved with pain medication and you are discharged with a few days of extra pain medication. Your CT did show enlargement of your lung cancer and is now encroaching into your right bronchus (airway). This may have lead to a mild bleed that caused you to cough and then throw up a few blood clots. Less likely would be a stomach ulcer that lead to a small bleed, but you didn't have any pain, and your recent EGD (scope) was negative for any ulcerations. Your blood count (hemoglobin) was stable. Follow up with Dr. Davila as scheduled tomorrow. Recommend soft diet for the next few days. Monitor for any worsening bleeding / more bright red blood clots. If so, please go to nearest ER. Diet: Regular (soft) Activity: Ad avani Followup: NONE,NONE [Primary Care Provider] - Opal Kruger MD [ACTIVE - CAN ADMIT] - 1 Day Time spent managing pt's care (in minutes): 45
== END 2020-10-23 15:57 | disposition home or self-care (01) ==
LOC: ER 09:57 → ERHOLD 15:13
PROVIDERS: ADMIT Hospitalist; ATTEND Hospitalist
DX: R04.2 Hemoptysis (principal); M25.511 Pain in right shoulder; M79.605 Pain in left leg; M79.604 Pain in right leg; R07.89 Other chest pain; M54.5 Low back pain; R10.9 Unspecified abdominal pain; C34.11 Malignant neoplasm of upper lobe, right bronchus or lung; J44.1 Chronic obstructive pulmonary disease with (acute) exacerbation; E87.6 Hypokalemia; G62.9 Polyneuropathy, unspecified; Z20.822 Contact with and (suspected) exposure to COVID-19; Z87.11 Personal history of peptic ulcer disease; Z87.891 Personal history of nicotine dependence; Z79.82 Long term (current) use of aspirin; Z88.3 Allergy status to other anti-infective agents; Z90.49 Acquired absence of other specified parts of digestive tract; Z83.3 Family history of diabetes mellitus; Z82.49 Family history of ischemic heart disease and other diseases of the circulatory system
CPT/HCPCS: 96365; 96361; 87040 ×2; 85025 ×2; 87086; 80048; 36415; 83735 ×2; 85610 ×2; 80076; 83605; 85652; 85018 ×3; 85014 ×3; 81003; 84484; 83690; 80053; 83880; 86140; 72192; 71260; 74177; 71045; 71046; 72170; 73502; 97162; 94760 ×3; 96375; 99285; 96366; U0003; Q9967; J7512 ×2; J0696 ×2; J7030; J2930; J2405; J3480; G0378 ×3; 87088